=== PATIENT | female | born 1965 | race Caucasian/White ===

== ENCOUNTER 2017-06-03 18:37 | Inpatient (IN) | payer MEDICAID, SELFPAY ==
[2017-06-03 18:38] VITALS: BP 87/63; PULSE 77; RESP 22; TEMP 36.1; O2SAT 93; BMI 39.9
--- NOTE | 2017-06-03 18:58 | RAD_ITS ---
STUDY: X-RAY CHEST REASON FOR EXAM: Female, 51 years old. Overdose TECHNIQUE: Single frontal view COMPARISON: September 01, 2015 FINDINGS: The lungs are not fully expanded. There is basilar interstitial prominence/atelectasis. Normal size heart. Normal mediastinum and rianna. Normal visualized pulmonary arteries. Normal visualized aortic arch and descending thoracic aorta. Normal visualized thoracic spine. Normal visualized ribs, clavicles, and shoulders. There is no demonstrated abnormality of the visualized soft tissue structures of the upper abdomen. RAD/Chest 1 View (Portable) IMPRESSION: There is basilar interstitial prominence/atelectasis. Electronically Signed: Froylan Jimenez DO at 20:08 EST Tel [phone], Service support ,
--- NOTE | 2017-06-03 18:58 | CT_ITS ---
STUDY: CT BRAIN WITHOUT CONTRAST REASON FOR EXAM: Female, 51 years old. Altered mental status RADIATION DOSAGE (If Supplied By Facility): CTDIvol = ( 44.99 ) mGy, DLP = ( 779.24 ) mGycm TECHNIQUE: Transaxial CT imaging of the brain was performed without administration of intravenous contrast material. Individualized dose optimization techniques were used for this CT. COMPARISON: January 03, 2006. FINDINGS: Normal soft tissue structures. Normal calvarium. Normal size ventricles and extra-axial spaces for the patient's age. Normal white matter tracts of the cerebral hemispheres. Normal basal ganglia and thalami. Normal brainstem. Normal cerebellum. There is no intracranial hemorrhage. There are no findings of an acute ischemic infarction. Normal visualized paranasal sinuses. CT/Brain/Head without Contrast IMPRESSION: Normal unenhanced CT scan of the brain. Electronically Signed: Froylan Jimenez DO at 20:13 EST Tel [phone], Service support ,
--- NOTE | 2017-06-03 18:59 | EKG12_ITS ---
Test Reason : Blood Pressure : / mmHG Vent. Rate : 076 BPM Atrial Rate : 076 BPM P-R Int : 194 ms QRS Dur : 084 ms QT Int : 414 ms P-R-T Axes : 040 016 042 degrees QTc Int : 465 ms Normal sinus rhythm Normal ECG Confirmed by SHANIA KRAUS MD ([id number]), loan expeditor JOHANA LOYA ([id number]) on 06/09/2017 2:53:11 PM Referred By: CHAVA Confirmed By:SHANIA KRAUS MD
[2017-06-03 19:01] LABS: Bedside Glucose > 500 mg/dL (70-110)
[2017-06-03] MEDS: 0.9% Normal Saline 1,000 ML 1000 ML IV ×2 (19:09)
[2017-06-03 19:15] LABS: Absolute Neutrophil Count 8.1 X10^3/uL (2.0-7.7); Eosinophil# 0.01 X10^3/uL; Eosinophils% 0.1 % (0-5); Hematocrit 35.9 % (37-47); Hemoglobin 12.4 g/dl (12.0-15.0); Lymphocyte % 8.9 % (19-41); Mean Corp Hgb Conc 34.5 g/gl (32-36); Mean Corpuscular Volume 92.5 fL (81-99); Mean Platelet Vol. 9.8 fl (6.2-12.0); Monocyte# 0.05 X10^3/uL; Monocyte% 0.6 % (0-10); Neutrophil # 8.08 X10^3/uL (2.7-7.7); Neutrophil % 90.2 % (47-70); Platelet Count 236 K/mm3 (150-450); RBC Distribution Width CV 12.4 % (11.6-14.6); RBC Distribution Width SD 41.8 fl (35.1-43.9); Red Blood Count 3.88 M/mm3 (4.2-5.4)
[2017-06-03 19:16] LABS: POSITIVE COUNT NO; POSITIVE DIFFERENTIAL NO; POSITIVE MORPHOLOGY NO
[2017-06-03 19:21] LABS: International Normalized Ratio 1.2
[2017-06-03 19:22] LABS: Partial Thromboplast Time 61.2 Seconds (24.1-36.2)
[2017-06-03 19:40] VITALS: BP 106/75; PULSE 87; RESP 17; O2SAT 96
[2017-06-03 19:46] LABS: Base Excess -9 mmol/L (-2 to +2); Bicarbonate 17.2 mmol/L (22-26); Blood Gas Specimen Type ART; O2 Delivery Device Nasal Can; PO2 91 mmHG (75-100); SITE R Radial; SO2 96 % (95-99); Time Given 1945; Total Carbon Dioxide 18 mmol/L; pCO2 35.7 mmHg (35-45); pH 7.29 (7.35-7.45)
[2017-06-03 19:49] LABS: Mucous, Urine 0 SEEN /hpf (<or=2+); Red Blood Cells-Urine 0 SEEN /hpf (0-5); Squamous Epithelial Cells - UA 0 SEEN /hpf (5-10)
[2017-06-03 19:51] LABS: ALB/GLOB Ratio 0.7 RATIO (0.9-2.4); AST(SGOT) 12 U/L (15-37); Alanine Aminotransfer ALT/SGPT 23 U/L (12-78); Albumin, Serum 3.5 g/dL (3.4-5.0); Alkaline Phosphatase 267 U/L (45-117); Anion Gap 14 (5-15); BUN 81 mg/dL (7-18); BUN/Creat Ratio 18.4 RATIO (10-20); Calcium,Total 8.4 mg/dL (8.5-10.1); Chloride 91 mmol/L (98-107); Creatinine, Serum 4.41 mg/dL (0.55-1.02); EST Glomerular Filtration Rate 11 mL/min (>60); Est Glom Filt Rate - Afr Amer 13 mL/min (>60); Estimated Creatinine Clearance 11.67 ml/min; Globulin 5.1 g/dL (2.2-4.2); Glucose 636 mg/dL (70-110); Lipase 204 U/L (73-393); Potassium 5.4 mmol/L (3.5-5.1); Protein, Total 8.6 g/dL (6.4-8.2); Sodium Level 124 mmol/L (136-145)
[2017-06-03 19:55] LABS: Internal QC Validated? YES +Cl - CLEAR BKGD; Pregnancy, Urine Negative Negative
--- NOTE | 2017-06-03 19:56 | ED.RN ---
lab called with critical lab results. glucose 636. Dr. Lloyd made aware no new orders at this time
[2017-06-03 19:59] LABS: Color, Urine Yellow (Yellow); Glucose, Dipstick 1000 mg/dl (Normal); Ketone-Dipstick Negative (Negative); Leukocyte Esterase-Dipstick 500 /ul (Negative); Nitrite-Dipstick Negative (Negative); Occult Blood-Urine 150 /ul (Negative); Protein-Dipstick 30 mg/dl (Negative); Urine Bilirubin Dipstick Negative (Negative); Urine Clarity Turbid (Clear); Urine Urobilinogen Normal (Normal)
[2017-06-03 20:03] VITALS: BP 103/84; PULSE 84; RESP 26; O2SAT 100
[2017-06-03 20:05] LABS: Bacteria 3+ /hpf (None Seen); White Blood Cells >100 SEEN /hpf (0-5)
[2017-06-03 20:36] LABS: Amphetamine Urine VISTA NEGATIVE (<1000 ng/mL); Barbiturate Urine VISTA NEGATIVE (< 200 ng/mL); Benzodiazepine Urine VISTA POSITIVE (< 200 ng/mL); Cocaine Urine VISTA NEGATIVE (< 300 ng/mL); Ecstacy Urine VISTA NEGATIVE (< 500 ng/mL); Methadone Urine VISTA NEGATIVE (< 300 ng/mL); PCP Urine VISTA NEGATIVE (< 25 ng/mL); THC Urine VISTA NEGATIVE (< 50 ng/mL); Vista UDS pH Range 5
--- NOTE | 2017-06-03 21:09 | PCM.HP.STD ---
Problem List (1) Abdominal pain Status: Chronic (2) Hypokalemia Status: Chronic (3) Hypomagnesemia Status: Chronic (4) Diabetes Status: Chronic (5) Anxiety Status: Acute History of Present Illness Date of Admission: 06/03/17 The patient is a 51 year old F with past medical history of diabetes type 2, essential hypertension , anxiety and dyslipidemia who seen in the emergency room on account of acute mental status changes , she apparently ingested several tablets of her prescription Xanax in addition to an unknown substances suspected to be moonshine in an apparent suicide attempt. On arrival to the emergency room she stated she wanted to , she says she took the pills on propose to kill herself. In the Emergency room her brain CT was none acute, her glucose was 636, sodium was 124, potassium 5.4, bicarb 19 , osmolarity 333. Her urinalysis is evident for pyuria, urine tox screen is positive for benzodiazepines. When I saw her in the emergency room she was somnolent but alert and oriented to time place the patient, orientation questions appropriately and denied any suicidal ideation. Past Medical History Past Medical History (Chronic Problems): Chronic Problems Abdominal pain (Chronic) Hypokalemia (Chronic) Hypomagnesemia (Chronic) Diabetes (Chronic) Allergies latex Allergy (Verified 06/03/17 18:57) Unknown Penicillins Allergy (Verified 09/10/15 18:42) Laryngospasms Home Medications: Ambulatory Orders Medication Instructions Recorded ALPRAZolam [Xanax] 1 mg PO TID 09/10/15 Aspirin [Aspirin, Baby] 81 mg PO DAILY@0800 09/10/15 Atorvastatin Calcium [Lipitor] 40 mg PO QHS 09/10/15 Cholecalciferol (Vitamin D3) 50,000 unit PO WE 09/10/15 [Decara] Folic Acid 1 mg PO DAILY@0800 09/10/15 Insulin Aspart [Novolog Flexpen] 20 units SC TIDCM 09/10/15 Insulin Glargine,Hum.rec.anlog 31 unit SQ QHS 09/10/15 [Lantus] Lisinopril [Zestril] 20 mg PO DAILY 09/10/15 Oxybutynin [Ditropan] 5 mg PO TID 09/10/15 Oxycodone [Oxyir] 5 - 10 mg PO Q6H PRN PRN 09/10/15 Sertraline HCl [Zoloft] 50 mg PO DAILY 09/10/15 Tizanidine HCl 8 mg PO 4X/DAY 09/10/15 Zolpidem Tartrate [Ambien] 10 mg PO QHS 09/10/15 Famotidine [Pepcid] 20 mg PO BID #60 tablet 09/13/15 ProMETHAzine [Phenergan] 25 mg PO Q4H PRN PRN #20 tablet 09/13/15 Surgical History: - - colonoscopy, egd, explorotory lap Smoking Status: Unknown if ever smoked - *Family History Maternal History Items: Unknown Paternal History Items: Unknown Review of Systems Comment: All Systems were reviewed with pertinent positives mentioned in the HPI above. VTE Information - Inpt Only VTE Present on Admission: No VTE Mechan Device Prophylaxis: SCD's VTE Pharm Prophylaxis ordered?: Yes - Physical Exam General: Alert, Oriented x3 HEENT: Atraumatic Oral: Moist Mucosa Neck: Supple, No JVD Lungs: Clear to auscultation Cardiovascular: Regular rate, Normal S1, Normal S2 Abdomen: Bowel Sounds Present, Soft, Non Tender, Non-Distended Extremities: No clubbing, No edema Skin: No rashes, No breakdown Neurological: Cranial nerves II-XII grossly intact, Deep Tendon Reflexes 2+/4 and Symmetrical Vital Signs Temp Pulse Resp BP Pulse Ox 97 F L 84 26 H 103/84 H 100 06/03/17 18:38 06/03/17 20:03 06/03/17 20:03 06/03/17 20:03 06/03/17 20:03 Oxygen Delivery Method Room Air Weight: 99.1 kg Body Mass Index (BMI) 39.9 Laboratory Tests Past 24 Hrs 06/03/17 06/03/17 06/03/17 18:50 18:50 18:50 WBC 9.0 RBC 3.88 L Hgb 12.4 Hct 35.9 L MCV 92.5 MCH 32.0 MCHC 34.5 RDW 12.4 RDW Differential 41.8 Plt Count 236 MPV 9.8 Immature Gran % (Auto) 0.200 Neut % (Auto) 90.2 H Lymph % (Auto) 8.9 L [place] % (Auto) 0.6 Eos % (Auto) 0.1 Baso % (Auto) 0.0 Absolute Neuts (auto) 8.1 H Absolute Lymphs (auto) 0.80 L Total Counted Not Reportable PT 15.0 H INR 1.2 APTT 61.2 H Specimen Type Sample Site pH Bicarbonate Actual POC Total CO2 Base Excess O2 Saturation ABG pCO2 ABG pO2 Jamie Test O2 Delivery Device Liter Flow Blood Gas Notified Whom Blood Gas Notified Time Sodium 124 L Potassium 5.4 H Chloride 91 L Carbon Dioxide 19.0 L Anion Gap 14 BUN 81 H Creatinine 4.41 H Estim Creat Clear Calc 11.67 Est GFR (MDRD) Af Amer 13 L Est GFR (MDRD) Non-Af 11 L BUN/Creatinine Ratio 18.4 Glucose 636 H* Serum Osmolality Lactic Acid Calcium 8.4 L Total Bilirubin 0.50 AST 12 L ALT 23 Alkaline Phosphatase 267 H Troponin I < 0.02 Total Protein 8.6 H Albumin 3.5 Globulin 5.1 H Albumin/Globulin Ratio 0.7 L Lipase 204 Urine Color Urine Clarity Urine pH Ur Specific [place] Urine Protein Urine Glucose (UA) Urine Ketones Urine Occult Blood Urine Nitrite Urine Bilirubin Urine Urobilinogen Ur Leukocyte Esterase Urine RBC Urine WBC Ur Squamous Epith Cells Urine Bacteria Urine Mucus Urine Test Urine Opiates Screen Urine Methadone Screen Ur Barbiturates Screen Ur Phencyclidine Scrn Ur Amphetamines Screen U Methamphetamin-MDMA U Benzodiazepines Scrn Urine Cocaine Screen U Cannabinoids Screen Ur Drug Screen Comment Ethyl Alcohol Acetone Level 06/03/17 06/03/17 06/03/17 18:50 18:50 18:50 WBC RBC Hgb Hct MCV MCH MCHC RDW RDW Differential Plt Count MPV Immature Gran % (Auto) Neut % (Auto) Lymph % (Auto) [place] % (Auto) Eos % (Auto) Baso % (Auto) Absolute Neuts (auto) Absolute Lymphs (auto) Total Counted PT INR APTT Specimen Type Sample Site pH Bicarbonate Actual POC Total CO2 Base Excess O2 Saturation ABG pCO2 ABG pO2 Jamie Test O2 Delivery Device Liter Flow Blood Gas Notified Whom Blood Gas Notified Time Sodium Potassium Chloride Carbon Dioxide Anion Gap BUN Creatinine Estim Creat Clear Calc Est GFR (MDRD) Af Amer Est GFR (MDRD) Non-Af BUN/Creatinine Ratio Glucose Serum Osmolality Pending Lactic Acid Calcium Total Bilirubin AST ALT Alkaline Phosphatase Troponin I Total Protein Albumin Globulin Albumin/Globulin Ratio Lipase Urine Color Urine Clarity Urine pH Ur Specific [place] Urine Protein Urine Glucose (UA) Urine Ketones Urine Occult Blood Urine Nitrite Urine Bilirubin Urine Urobilinogen Ur Leukocyte Esterase Urine RBC Urine WBC Ur Squamous Epith Cells Urine Bacteria Urine Mucus Urine Test Urine Opiates Screen Urine Methadone Screen Ur Barbiturates Screen Ur Phencyclidine Scrn Ur Amphetamines Screen U Methamphetamin-MDMA U Benzodiazepines Scrn Urine Cocaine Screen U Cannabinoids Screen Ur Drug Screen Comment Ethyl Alcohol 5.0 Acetone Level NEGATIVE 06/03/17 06/03/17 06/03/17 19:10 19:40 19:40 WBC RBC Hgb Hct MCV MCH MCHC RDW RDW Differential Plt Count MPV Immature Gran % (Auto) Neut % (Auto) Lymph % (Auto) [place] % (Auto) Eos % (Auto) Baso % (Auto) Absolute Neuts (auto) Absolute Lymphs (auto) Total Counted PT INR APTT Specimen Type Sample Site pH Bicarbonate Actual POC Total CO2 Base Excess O2 Saturation ABG pCO2 ABG pO2 Jamie Test O2 Delivery Device Liter Flow Blood Gas Notified Whom Blood Gas Notified Time Sodium Potassium Chloride Carbon Dioxide Anion Gap BUN Creatinine Estim Creat Clear Calc Est GFR (MDRD) Af Amer Est GFR (MDRD) Non-Af BUN/Creatinine Ratio Glucose Serum Osmolality Lactic Acid 1.0 Calcium Total Bilirubin AST ALT Alkaline Phosphatase Troponin I Total Protein Albumin Globulin Albumin/Globulin Ratio Lipase Urine Color Yellow Urine Clarity Turbid Urine pH 5.0 Ur Specific [place] 1.020 Urine Protein 30 H Urine Glucose (UA) 1000 H Urine Ketones Negative Urine Occult Blood 150 H Urine Nitrite Negative Urine Bilirubin Negative Urine Urobilinogen Normal Ur Leukocyte Esterase 500 H Urine RBC 0 SEEN Urine WBC >100 SEEN Ur Squamous Epith Cells 0 SEEN Urine Bacteria 3+ Urine Mucus 0 SEEN Urine Test Negative Urine Opiates Screen Urine Methadone Screen Ur Barbiturates Screen Ur Phencyclidine Scrn Ur Amphetamines Screen U Methamphetamin-MDMA U Benzodiazepines Scrn Urine Cocaine Screen U Cannabinoids Screen Ur Drug Screen Comment Ethyl Alcohol Acetone Level 06/03/17 06/03/17 19:40 19:41 WBC RBC Hgb Hct MCV MCH MCHC RDW RDW Differential Plt Count MPV Immature Gran % (Auto) Neut % (Auto) Lymph % (Auto) [place] % (Auto) Eos % (Auto) Baso % (Auto) Absolute Neuts (auto) Absolute Lymphs (auto) Total Counted PT INR APTT Specimen Type ART Sample Site R Radial pH 7.29 L Bicarbonate Actual 17.2 L POC Total CO2 18 Base Excess -9 L O2 Saturation 96 ABG pCO2 35.7 ABG pO2 91 Jamie Test NA O2 Delivery Device Nasal Can Liter Flow 2.0 Blood Gas Notified Whom ED MD Blood Gas Notified Time 1944 Sodium Potassium Chloride Carbon Dioxide Anion Gap BUN Creatinine Estim Creat Clear Calc Est GFR (MDRD) Af Amer Est GFR (MDRD) Non-Af BUN/Creatinine Ratio Glucose Serum Osmolality Lactic Acid Calcium Total Bilirubin AST ALT Alkaline Phosphatase Troponin I Total Protein Albumin Globulin Albumin/Globulin Ratio Lipase Urine Color Urine Clarity Urine pH Ur Specific [place] Urine Protein Urine Glucose (UA) Urine Ketones Urine Occult Blood Urine Nitrite Urine Bilirubin Urine Urobilinogen Ur Leukocyte Esterase Urine RBC Urine WBC Ur Squamous Epith Cells Urine Bacteria Urine Mucus Urine Test Urine Opiates Screen NEGATIVE Urine Methadone Screen NEGATIVE Ur Barbiturates Screen NEGATIVE Ur Phencyclidine Scrn NEGATIVE Ur Amphetamines Screen NEGATIVE U Methamphetamin-MDMA NEGATIVE U Benzodiazepines Scrn POSITIVE H Urine Cocaine Screen NEGATIVE U Cannabinoids Screen NEGATIVE Ur Drug Screen Comment Ethyl Alcohol Acetone Level POC Glucose 06/03/17 18:57 POC Glucose > 500 H* Assessment/Plan 1. Acute toxic encephalopathy due to benzodiazepine overdose; we are going to admit her to the ICU for close monitoring, she is being hydrated with IV fluids. 2. Suicide attempt; when she is medically stable , she will be evaluated by behavioral health/psychiatry for possible inpatient psych admission. 3. DM type II with hyperglycemia; we will place her on insulin drip, we will hold off on her home insulin regimen at this time. 4. Hyponatremia; likely due to her hyperglycemia which should improve with treatment of #3. 5. Hyperkalemia the patient is receiving insulin drip which is likely to even make her hypokalemic and will monitor her electrolytes closely. 6. Acute cystitis ; we will place her on IV Rocephin. 7. DVT prophylaxis with subcutaneous heparin.
--- NOTE | 2017-06-03 21:12 | NURSING ---
icu obs [facility]
[2017-06-03 21:21] VITALS: BP 136/86; PULSE 84; RESP 18; O2SAT 100
[2017-06-03 21:25] LABS: Osmolality, Serum 333 mOsm/KG (275-295)
--- NOTE | 2017-06-03 21:48 | ED.RN ---
PT STATED THAT SHE WANTED TO , SHE TOOK THE PILLS ON PURPOSE, AND THAT SHE WOULD RIP HER IV OUT. SHE ALSO STATED THAT SHE DID NOT WANT US DOING ANYTHING TO SAVE HER.
--- NOTE | 2017-06-03 21:54 | NURSING ---
DIAGNOSIS: DRUG OD, HYPERGLYCEMIA
[2017-06-03 22:00] VITALS: BP 124/74; PULSE 78; RESP 18; O2SAT 95
--- NOTE | 2017-06-03 22:03 | NURSING ---
ICU 3
[2017-06-03 23:18] VITALS: BP 152/78; PULSE 89; RESP 18; O2SAT 100
[2017-06-03 23:26] LABS: Bedside Glucose > 500 mg/dL (70-110)
[2017-06-04] VITALS (37 sets, daily range): BP systolic 77–132; BP diastolic 42–78; PULSE 72–100; RESP 10–18; TEMP 36.1–36.6; O2SAT 84–100; BMI 34.7
--- NOTE | 2017-06-04 00:54 | ED.DCSUM_ITS ---
- ER Visit Summary Date of Service: 06/04/17 Chief Complaint: Intentional overdose History of Present Illness: The patient is a 51 F who presents for intentional overdose. called 911 after patient took multiple medications, including 3 days worth of farxiga, lisinopril, tizanidine, oxybutynin, and 10 tabs of 1 mg Xanax. also reported she drink moonshine. Patient unable to provide history, and is not present to give any further information, including time of ingestions. 3 limited secondary to patient obtunded. Physical Examination: Vital signs: afebrile, mild hypotension, no hypoxia on room air General: well nourished, well developed, obese, response to noxious stimulation Skin: warm, dry, no rash, positive mild pallor HEENT: normocephalic and atraumatic; PERRL, EOMI, dry mucous membranes Cardiovascular: regular rate and rhythm without murmurs, no peripheral edema, 2 + pulses all distal extremities Respiratory: No increased work of breathing, lungs are clear to auscultation bilaterally, no rales, rhonchi or wheezing Abdominal: Abdomen is soft, I will diffuse tenderness with normoactive bowel sounds, no guarding or rebound, no masses MSK: Moves all extremities, no deformities, normal strength Neuro: Lethargic. No facial droop, moves all extremities Test Results: Abnormal Lab Results 06/03/17 06/03/17 06/03/17 18:50 18:50 18:50 WBC 9.0 RBC 3.88 L Hgb 12.4 Hct 35.9 L MCV 92.5 MCH 32.0 MCHC 34.5 RDW 12.4 RDW Differential 41.8 Plt Count 236 MPV 9.8 Immature Gran % (Auto) 0.200 Neut % (Auto) 90.2 H Lymph % (Auto) 8.9 L [place] % (Auto) 0.6 Eos % (Auto) 0.1 Baso % (Auto) 0.0 Absolute Neuts (auto) 8.1 H Absolute Lymphs (auto) 0.80 L Total Counted Not Reportable PT 15.0 H INR 1.2 APTT 61.2 H Specimen Type Sample Site pH Bicarbonate Actual POC Total CO2 Base Excess O2 Saturation ABG pCO2 ABG pO2 Jamie Test O2 Delivery Device Liter Flow Blood Gas Notified Whom Blood Gas Notified Time Sodium 124 L Potassium 5.4 H Chloride 91 L Carbon Dioxide 19.0 L Anion Gap 14 BUN 81 H Creatinine 4.41 H Estim Creat Clear Calc 11.67 Est GFR (MDRD) Af Amer 13 L Est GFR (MDRD) Non-Af 11 L BUN/Creatinine Ratio 18.4 Glucose 636 H* Serum Osmolality Lactic Acid Calcium 8.4 L Total Bilirubin 0.50 AST 12 L ALT 23 Alkaline Phosphatase 267 H Troponin I < 0.02 Total Protein 8.6 H Albumin 3.5 Globulin 5.1 H Albumin/Globulin Ratio 0.7 L Lipase 204 Urine Color Urine Clarity Urine pH Ur Specific [place] Urine Protein Urine Glucose (UA) Urine Ketones Urine Occult Blood Urine Nitrite Urine Bilirubin Urine Urobilinogen Ur Leukocyte Esterase Urine RBC Urine WBC Ur Squamous Epith Cells Urine Bacteria Urine Mucus Urine Test Urine Opiates Screen Urine Methadone Screen Ur Barbiturates Screen Ur Phencyclidine Scrn Ur Amphetamines Screen U Methamphetamin-MDMA U Benzodiazepines Scrn Urine Cocaine Screen U Cannabinoids Screen Ur Drug Screen Comment Ethyl Alcohol Acetone Level POC Glucose 06/03/17 06/03/17 06/03/17 18:50 18:50 18:50 WBC RBC Hgb Hct MCV MCH MCHC RDW RDW Differential Plt Count MPV Immature Gran % (Auto) Neut % (Auto) Lymph % (Auto) [place] % (Auto) Eos % (Auto) Baso % (Auto) Absolute Neuts (auto) Absolute Lymphs (auto) Total Counted PT INR APTT Specimen Type Sample Site pH Bicarbonate Actual POC Total CO2 Base Excess O2 Saturation ABG pCO2 ABG pO2 Jamie Test O2 Delivery Device Liter Flow Blood Gas Notified Whom Blood Gas Notified Time Sodium Potassium Chloride Carbon Dioxide Anion Gap BUN Creatinine Estim Creat Clear Calc Est GFR (MDRD) Af Amer Est GFR (MDRD) Non-Af BUN/Creatinine Ratio Glucose Serum Osmolality 333 H Lactic Acid Calcium Total Bilirubin AST ALT Alkaline Phosphatase Troponin I Total Protein Albumin Globulin Albumin/Globulin Ratio Lipase Urine Color Urine Clarity Urine pH Ur Specific [place] Urine Protein Urine Glucose (UA) Urine Ketones Urine Occult Blood Urine Nitrite Urine Bilirubin Urine Urobilinogen Ur Leukocyte Esterase Urine RBC Urine WBC Ur Squamous Epith Cells Urine Bacteria Urine Mucus Urine Test Urine Opiates Screen Urine Methadone Screen Ur Barbiturates Screen Ur Phencyclidine Scrn Ur Amphetamines Screen U Methamphetamin-MDMA U Benzodiazepines Scrn Urine Cocaine Screen U Cannabinoids Screen Ur Drug Screen Comment Ethyl Alcohol 5.0 Acetone Level NEGATIVE POC Glucose 06/03/17 06/03/17 06/03/17 18:57 19:10 19:40 WBC RBC Hgb Hct MCV MCH MCHC RDW RDW Differential Plt Count MPV Immature Gran % (Auto) Neut % (Auto) Lymph % (Auto) [place] % (Auto) Eos % (Auto) Baso % (Auto) Absolute Neuts (auto) Absolute Lymphs (auto) Total Counted PT INR APTT Specimen Type Sample Site pH Bicarbonate Actual POC Total CO2 Base Excess O2 Saturation ABG pCO2 ABG pO2 Jamie Test O2 Delivery Device Liter Flow Blood Gas Notified Whom Blood Gas Notified Time Sodium Potassium Chloride Carbon Dioxide Anion Gap BUN Creatinine Estim Creat Clear Calc Est GFR (MDRD) Af Amer Est GFR (MDRD) Non-Af BUN/Creatinine Ratio Glucose Serum Osmolality Lactic Acid 1.0 Calcium Total Bilirubin AST ALT Alkaline Phosphatase Troponin I Total Protein Albumin Globulin Albumin/Globulin Ratio Lipase Urine Color Urine Clarity Urine pH Ur Specific [place] Urine Protein Urine Glucose (UA) Urine Ketones Urine Occult Blood Urine Nitrite Urine Bilirubin Urine Urobilinogen Ur Leukocyte Esterase Urine RBC Urine WBC Ur Squamous Epith Cells Urine Bacteria Urine Mucus Urine Test Negative Urine Opiates Screen Urine Methadone Screen Ur Barbiturates Screen Ur Phencyclidine Scrn Ur Amphetamines Screen U Methamphetamin-MDMA U Benzodiazepines Scrn Urine Cocaine Screen U Cannabinoids Screen Ur Drug Screen Comment Ethyl Alcohol Acetone Level POC Glucose > 500 H* 06/03/17 06/03/17 06/03/17 19:40 19:40 19:41 WBC RBC Hgb Hct MCV MCH MCHC RDW RDW Differential Plt Count MPV Immature Gran % (Auto) Neut % (Auto) Lymph % (Auto) [place] % (Auto) Eos % (Auto) Baso % (Auto) Absolute Neuts (auto) Absolute Lymphs (auto) Total Counted PT INR APTT Specimen Type ART Sample Site R Radial pH 7.29 L Bicarbonate Actual 17.2 L POC Total CO2 18 Base Excess -9 L O2 Saturation 96 ABG pCO2 35.7 ABG pO2 91 Jamie Test NA O2 Delivery Device Nasal Can Liter Flow 2.0 Blood Gas Notified Whom ED Blood Gas Notified Time 1944 Sodium Potassium Chloride Carbon Dioxide Anion Gap BUN Creatinine Estim Creat Clear Calc Est GFR (MDRD) Af Amer Est GFR (MDRD) Non-Af BUN/Creatinine Ratio Glucose Serum Osmolality Lactic Acid Calcium Total Bilirubin AST ALT Alkaline Phosphatase Troponin I Total Protein Albumin Globulin Albumin/Globulin Ratio Lipase Urine Color Yellow Urine Clarity Turbid Urine pH 5.0 Ur Specific [place] 1.020 Urine Protein 30 H Urine Glucose (UA) 1000 H Urine Ketones Negative Urine Occult Blood 150 H Urine Nitrite Negative Urine Bilirubin Negative Urine Urobilinogen Normal Ur Leukocyte Esterase 500 H Urine RBC 0 SEEN Urine WBC >100 SEEN Ur Squamous Epith Cells 0 SEEN Urine Bacteria 3+ Urine Mucus 0 SEEN Urine Test Urine Opiates Screen NEGATIVE Urine Methadone Screen NEGATIVE Ur Barbiturates Screen NEGATIVE Ur Phencyclidine Scrn NEGATIVE Ur Amphetamines Screen NEGATIVE U Methamphetamin-MDMA NEGATIVE U Benzodiazepines Scrn POSITIVE H Urine Cocaine Screen NEGATIVE U Cannabinoids Screen NEGATIVE Ur Drug Screen Comment Ethyl Alcohol Acetone Level POC Glucose 06/03/17 06/03/17 22:35 23:22 WBC RBC Hgb Hct MCV MCH MCHC RDW RDW Differential Plt Count MPV Immature Gran % (Auto) Neut % (Auto) Lymph % (Auto) [place] % (Auto) Eos % (Auto) Baso % (Auto) Absolute Neuts (auto) Absolute Lymphs (auto) Total Counted PT INR APTT Specimen Type Sample Site pH Bicarbonate Actual POC Total CO2 Base Excess O2 Saturation ABG pCO2 ABG pO2 Jamie Test O2 Delivery Device Liter Flow Blood Gas Notified Whom Blood Gas Notified Time Sodium Potassium Chloride Carbon Dioxide Anion Gap BUN Creatinine Estim Creat Clear Calc Est GFR (MDRD) Af Amer Est GFR (MDRD) Non-Af BUN/Creatinine Ratio Glucose Serum Osmolality Lactic Acid Calcium Total Bilirubin AST ALT Alkaline Phosphatase Troponin I < 0.02 Total Protein Albumin Globulin Albumin/Globulin Ratio Lipase Urine Color Urine Clarity Urine pH Ur Specific [place] Urine Protein Urine Glucose (UA) Urine Ketones Urine Occult Blood Urine Nitrite Urine Bilirubin Urine Urobilinogen Ur Leukocyte Esterase Urine RBC Urine WBC Ur Squamous Epith Cells Urine Bacteria Urine Mucus Urine Test Urine Opiates Screen Urine Methadone Screen Ur Barbiturates Screen Ur Phencyclidine Scrn Ur Amphetamines Screen U Methamphetamin-MDMA U Benzodiazepines Scrn Urine Cocaine Screen U Cannabinoids Screen Ur Drug Screen Comment Ethyl Alcohol Acetone Level POC Glucose > 500 H* Emergency Department Course and Treatment: Blood sugar was checked and was read as high. She was given IV fluids. CBC showed no leukocytosis or anemia. Chemistry panel showed a sodium that was appropriately low for corrected blood sugar. Potassium 5.4. No anion gap. BUN and creatinine elevated. Urine was positive for infection. Troponin negative. Lactate normal. negative. Ketones negative. Alcohol was negative. ABG showed mild metabolic acidosis at 7.29. Tox positive for benzos. History included that patient had been drinking alcohol, but the alcohol level was negative. Patient had no anion gap that would suggest toxic alcohol ingestion such as ethylene glycol or methanol. Patient became much more responsive after initial fluid hydration and once IVs in [place] were placed. Patient maintained her airway at all times and required no intubation or advanced airway maneuvers. She was started on IV insulin drip after blood sugar did not respond to IV fluids. Acetaminophen and salicylate levels are pending. Patient will require admission for further management of intentional overdose, hyperglycemia and acute renal failure. Critical care time 40 minutes, which includes coordination of care, emergent management of life-threatening conditions, consultations, treatment of hypoglycemia, overdose, acute renal insufficiency, altered mental status. Treatment Plan: [] Disposition: [] Impression: intentional OD; hyperglycemia; ARF, UTI This note was generated with [employer] dictation software. It may contain incorrect words, spelling, and punctuation that were not noted in review of the chart prior to signing ED Disposition - Plan for ED Patient: Disposition: Acute Care Hospital [facility] Chief Complaint: Overdose
[2017-06-04 01:21] LABS: Bedside Glucose 457 mg/dL (70-110)
[2017-06-04] MEDS: Ceftriaxone 1 GM/50 ML BAG IV (01:35)
[2017-06-04] MEDS: 0.9% Normal Saline 1,000 ML 125 ML IV ×2 (01:35→11:04)
[2017-06-04] MEDS: Heparin Injection 5,000 UNITS/ML Syringe 5000 UNITS SC ×3 (01:43→21:52)
[2017-06-04 02:06] LABS: Bedside Glucose 427 mg/dL (70-110)
--- NOTE | 2017-06-04 02:15 | NURSING ---
iv attempted x3, unable to obtain iv's or blood, lab called for blood draw. will send someone at 0300.
[2017-06-04 02:59] LABS: M R Staph aureus DNA By PCR Negative (Negative); Probe Check PASS; Specimen Processing Control PASS
[2017-06-04 03:36] LABS: Bedside Glucose 369 mg/dL (70-110)
[2017-06-04] MEDS: 0.9% Normal Saline 1,000 ML 999 ML IV (04:00)
[2017-06-04 04:29] LABS: Hematocrit 31.2 % (37-47); Hemoglobin 11.2 g/dl (12.0-15.0); Mean Corp Hgb Conc 35.9 g/gl (32-36); Mean Corpuscular Hgb 32.6 pg (27.0-32.0); Mean Corpuscular Volume 90.7 fL (81-99); Mean Platelet Vol. 9.7 fl (6.2-12.0); Platelet Count 245 K/mm3 (150-450); RBC Distribution Width CV 11.9 % (11.6-14.6); RBC Distribution Width SD 37.7 fl (35.1-43.9); Red Blood Count 3.44 M/mm3 (4.2-5.4); White Blood Count 9.7 K/mm3 (4.4-11.0)
[2017-06-04 04:30] LABS: Scan Indicated on CBC? Y/N NO
[2017-06-04 04:41] LABS: Bedside Glucose 297 mg/dL (70-110)
[2017-06-04 04:43] LABS: Acetaminophen (Tylenol) Level < 2.0 ug/mL (10.0-30.0); Salicylate 2.8 mg/dL (2.8-20.0)
[2017-06-04 04:49] LABS: Anion Gap 16 (5-15); BUN 74 mg/dL (7-18); BUN/Creat Ratio 25.2 RATIO (10-20); Calcium,Total 8.1 mg/dL (8.5-10.1); Chloride 103 mmol/L (98-107); Creatinine, Serum 2.94 mg/dL (0.55-1.02); EST Glomerular Filtration Rate 18 mL/min (>60); Est Glom Filt Rate - Afr Amer 21 mL/min (>60); Glucose 353 mg/dL (70-110); Potassium 3.8 mmol/L (3.5-5.1); Sodium Level 134 mmol/L (136-145)
[2017-06-04 05:41] LABS: Bedside Glucose 206 mg/dL (70-110)
[2017-06-04 06:31] LABS: Bedside Glucose 191 mg/dL (70-110)
[2017-06-04 08:16] LABS: Bedside Glucose 175 mg/dL (70-110)
--- NOTE | 2017-06-04 08:42 | PCM.PN.HOSP ---
Patient Problems: Active and Suspected Problems Toxic encephalopathy (Acute) Suicide attempt (Acute) Hyperosmolar non-ketotic state in patient with type 2 diabetes mellitus (Acute) ZOEY (acute kidney injury) (Acute) Subjective: Nursing, patient has been slightly more alert but still confused. Also stated that she truly did want to kill herself. Vitals/I&O's: Vital Signs Temp Pulse Resp BP Pulse Ox 36.1 C L 83 12 80/42 L 98 06/04/17 07:00 06/04/17 07:00 06/04/17 07:00 06/04/17 07:00 06/04/17 07:00 Oxygen Delivery Method Room Air Weight: 88.3 kg Body Mass Index (BMI) 34.7 Finger Stick Blood Glucose 206 Intake and Output for Last 24 Hours 06/02/17 06/03/17 06/04/17 23:59 23:59 23:59 Intake Total 1393.5 / 1393.5 Output Total 1750 / 1750 Balance -356.5 / -356.5 General: Confused, - - Lethargic. Barely able to keep her eyes open. HEENT: Atraumatic, PERRLA, Normocephalic Oral: Moist Mucosa, No Gingival or Mucosal Lesions/ Ulcerations Neck: No Nodes, Thyroid Normal Size and Texture Lungs: No rhonchi, No wheeze, Diminished Cardiovascular: Regular rate, Regular Rhythm, Normal S1, Normal S2, No murmurs Abdomen: Bowel Sounds Present, Soft, Non Tender, Non-Distended, No Hepato-splenomegaly Extremities: No edema, No Calf Tenderness Skin: No rashes, No breakdown Musculoskeletal: No Tenderness to Palpation of Joints or Extremities, No Muscle Wasting Neurological: Deep Tendon Reflexes 2+/4 and Symmetrical, - - No clonus Laboratory Results 06/03/17 22:35: Troponin I < 0.02 06/03/17 23:22: POC Glucose > 500 H* 06/04/17 01:15: POC Glucose 457 H* 06/04/17 01:20: MRSA (PCR) Negative 06/04/17 01:59: POC Glucose 427 H 06/04/17 03:28: POC Glucose 369 H 06/04/17 03:54: Sodium 134 L, Potassium 3.8, Chloride 103, Carbon Dioxide 15.0 L, Anion Gap 16 H, BUN 74 H, Creatinine 2.94 H, Estim Creat Clear Calc 17.50, Est GFR (MDRD) Af Amer 21 L, Est GFR (MDRD) Non-Af 18 L, BUN/Creatinine Ratio 25.2 H, Glucose 353 H, Calcium 8.1 L, Troponin I < 0.02 06/04/17 03:54: WBC 9.7, RBC 3.44 L, Hgb 11.2 L, Hct 31.2 L, MCV 90.7, MCH 32.6 H, MCHC 35.9, RDW 11.9, RDW Differential 37.7, Plt Count 245, MPV 9.7 06/04/17 03:54: Salicylates 2.8, Acetaminophen < 2.0 L 06/04/17 04:34: POC Glucose 297 H 06/04/17 05:30: POC Glucose 206 H 06/04/17 06:28: POC Glucose 191 H 06/04/17 07:55: POC Glucose 175 H Current Medications Dextrose (D50w Syringe) 0 gm IV X1 PRN; Protocol PRN Reason: Hypoglycemia Heparin Sodium (Porcine) () 5,000 units SC BID [facility] Last Admin: 06/04/17 01:43 Dose: 5,000 units Insulin Aspart 100 unit/ (Sodium Chloride) 100 mls @ 9.91 mls/hr CONT INF .Q10H6M [facility]; 0.1 UNITS/KG/HR PRN Reason: Protocol Last Admin: 06/04/17 02:14 Dose: 9.91 mls/hr Ceftriaxone Sodium (Rocephin) 1 gm in 50 mls @ 100 mls/hr IV Q24 [facility] Last Admin: 06/04/17 01:35 Dose: 100 mls/hr Sodium Chloride () 1,000 mls @ 125 mls/hr IV .Q8H [facility] Last Admin: 06/04/17 01:35 Dose: 125 mls/hr Magnesium Hydroxide (Milk Of Magnesia) 30 ml PO DAILY PRN PRN PRN Reason: Constipation Sodium Chloride () 5 - 30 ml IV UD PRN PRN Reason: SALINE FLUSH Assessment/Plan Active and Suspected Problems Toxic encephalopathy (Acute) Suicide attempt (Acute) Hyperosmolar non-ketotic state in patient with type 2 diabetes mellitus (Acute) ZOEY (acute kidney injury) (Acute) 1. Toxic encephalopathy Due to an intentional overdose patient's Xanax. Improved somewhat Continue supportive management at this time. 2. Suicide attempt Patient will need to go to a psychiatric hospital for management when she has been medically medically stabilized. 3. Hyperosmolar non-ketosis On insulin drip. Blood sugars have improved significantly. Would transition back to her basal and prandial insulins now that her blood sugars are greatly improved. 4. Chronic benzodiazepine use. Reviewed her OARRS, and patient has been getting her Xanax from a provider. Last prescription was filled on the . Therefore, would not abruptly discontinue Ativan once patient has become more alert but to wean that off over several weeks. But given the patient's obtundation at this point time, would certainly hold the benzos. But would reintroduce if patient starts going through withdrawal which she is certainly not going to her at this time. 5. Acute kidney injury Suspect prerenal. Continue with IV fluids Baseline creatinine is prior around 1 which was performed in August 2015. Possible that her kidney function may have gotten worse in the interim, however. 6. DVT prophylaxis with subcu heparin Code Visit Inpatient E&M: 52433 Subs Hosp L3
--- NOTE | 2017-06-04 08:48 | PN_ITS ---
Patient Problems: Active and Suspected Problems Toxic encephalopathy (Acute) Suicide attempt (Acute) Hyperosmolar non-ketotic state in patient with type 2 diabetes mellitus (Acute) ZOEY (acute kidney injury) (Acute) Subjective: Nursing, patient has been slightly more alert but still confused. Also stated that she truly did want to kill herself. Vitals/I&O's: Vital Signs Temp Pulse Resp BP Pulse Ox 36.1 C L 83 12 80/42 L 98 06/04/17 07:00 06/04/17 07:00 06/04/17 07:00 06/04/17 07:00 06/04/17 07:00 Oxygen Delivery Method Room Air Weight: 88.3 kg Body Mass Index (BMI) 34.7 Finger Stick Blood Glucose 206 Intake and Output for Last 24 Hours 06/02/17 06/03/17 06/04/17 23:59 23:59 23:59 Intake Total 1393.5 / 1393.5 Output Total 1750 / 1750 Balance -356.5 / -356.5 General: Confused, - - Lethargic. Barely able to keep her eyes open. HEENT: Atraumatic, PERRLA, Normocephalic Oral: Moist Mucosa, No Gingival or Mucosal Lesions/ Ulcerations Neck: No Nodes, Thyroid Normal Size and Texture Lungs: No rhonchi, No wheeze, Diminished Cardiovascular: Regular rate, Regular Rhythm, Normal S1, Normal S2, No murmurs Abdomen: Bowel Sounds Present, Soft, Non Tender, Non-Distended, No Hepato- splenomegaly Extremities: No edema, No Calf Tenderness Skin: No rashes, No breakdown Musculoskeletal: No Tenderness to Palpation of Joints or Extremities, No Muscle Wasting Neurological: Deep Tendon Reflexes 2+/4 and Symmetrical, - - No clonus Laboratory Results 06/03/17 22:35: Troponin I < 0.02 06/03/17 23:22: POC Glucose > 500 H* 06/04/17 01:15: POC Glucose 457 H* 06/04/17 01:20: MRSA (PCR) Negative 06/04/17 01:59: POC Glucose 427 H 06/04/17 03:28: POC Glucose 369 H 06/04/17 03:54: Sodium 134 L, Potassium 3.8, Chloride 103, Carbon Dioxide 15.0 L , Anion Gap 16 H, BUN 74 H, Creatinine 2.94 H, Estim Creat Clear Calc 17.50, Est GFR (MDRD) Af Amer 21 L, Est GFR (MDRD) Non-Af 18 L, BUN/Creatinine Ratio 25.2 H, Glucose 353 H, Calcium 8.1 L, Troponin I < 0.02 06/04/17 03:54: WBC 9.7, RBC 3.44 L, Hgb 11.2 L, Hct 31.2 L, MCV 90.7, MCH 32.6 H, MCHC 35.9, RDW 11.9, RDW Differential 37.7, Plt Count 245, MPV 9.7 06/04/17 03:54: Salicylates 2.8, Acetaminophen < 2.0 L 06/04/17 04:34: POC Glucose 297 H 06/04/17 05:30: POC Glucose 206 H 06/04/17 06:28: POC Glucose 191 H 06/04/17 07:55: POC Glucose 175 H Current Medications Dextrose (D50w Syringe) 0 gm IV X1 PRN; Protocol PRN Reason: Hypoglycemia Heparin Sodium (Porcine) () 5,000 units SC BID [facility] Last Admin: 06/04/17 01:43 Dose: 5,000 units Insulin Aspart 100 unit/ (Sodium Chloride) 100 mls @ 9.91 mls/hr CONT INF .Q10H6M [facility]; 0.1 UNITS/KG/HR PRN Reason: Protocol Last Admin: 06/04/17 02:14 Dose: 9.91 mls/hr Ceftriaxone Sodium (Rocephin) 1 gm in 50 mls @ 100 mls/hr IV Q24 [facility] Last Admin: 06/04/17 01:35 Dose: 100 mls/hr Sodium Chloride () 1,000 mls @ 125 mls/hr IV .Q8H [facility] Last Admin: 06/04/17 01:35 Dose: 125 mls/hr Magnesium Hydroxide (Milk Of Magnesia) 30 ml PO DAILY PRN PRN PRN Reason: Constipation Sodium Chloride () 5 - 30 ml IV UD PRN PRN Reason: SALINE FLUSH Assessment/Plan Active and Suspected Problems Toxic encephalopathy (Acute) Suicide attempt (Acute) Hyperosmolar non-ketotic state in patient with type 2 diabetes mellitus (Acute) ZOEY (acute kidney injury) (Acute) 1. Toxic encephalopathy Due to an intentional overdose patient's Xanax. Improved somewhat Continue supportive management at this time. 2. Suicide attempt Patient will need to go to a psychiatric hospital for management when she has been medically medically stabilized. 3. Hyperosmolar non-ketosis On insulin drip. Blood sugars have improved significantly. Would transition back to her basal and prandial insulins now that her blood sugars are greatly improved. 4. Chronic benzodiazepine use. Reviewed her OARRS, and patient has been getting her Xanax from a provider. Last prescription was filled on the . Therefore, would not abruptly discontinue Ativan once patient has become more alert but to wean that off over several weeks. But given the patient's obtundation at this point time, would certainly hold the benzos. But would reintroduce if patient starts going through withdrawal which she is certainly not going to her at this time. 5. Acute kidney injury Suspect prerenal. Continue with IV fluids Baseline creatinine is prior around 1 which was performed in August 2015. Possible that her kidney function may have gotten worse in the interim, however. 6. DVT prophylaxis with subcu heparin Code Visit Inpatient E&M: 71720 Subs Hosp L3
[2017-06-04] MEDS: Lactated Ringers 1,000 ML 999 ML IV ×2 (09:09→13:34)
[2017-06-04 10:00] LABS: Bedside Glucose 143 mg/dL (70-110)
[2017-06-04 10:00] LABS: Bedside Glucose 151 mg/dL (70-110)
--- NOTE | 2017-06-04 10:35 | CASEMGMT ---
SW participated in interdisciplinary rounds. Pt will need to speak w/crisis when medically stable. SW let RN know if family comes in to please let SW know and SW will speak w/family. KARIN Aguero, [employer]
[2017-06-04 10:55] LABS: Anion Gap 9 (5-15); BUN 68 mg/dL (7-18); BUN/Creat Ratio 30.5 RATIO (10-20); Chloride 111 mmol/L (98-107); Creatinine, Serum 2.23 mg/dL (0.55-1.02); EST Glomerular Filtration Rate 24 mL/min (>60); Est Glom Filt Rate - Afr Amer 30 mL/min (>60); Estimated Creatinine Clearance 23.07 ml/min; Glucose 126 mg/dL (70-110); Potassium 3.7 mmol/L (3.5-5.1); Sodium Level 141 mmol/L (136-145)
--- NOTE | 2017-06-04 11:30 | PCM.CON.CC ---
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; 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 Patient's /boyfriend reportedly called 911 after the patient had taken approximately 3 days worth of Farxiga, lisinopril, oxybutynin, tizanidine and 10 mg of Xanax. Patient reportedly had also drank moonshine, but on presentation alcohol level was 0. On ER evaluation, patient was noted to be in acute renal failure. Patient was admitted to the intensive care unit under suicide precautions. On evaluation today, patient is not very forthcoming with details. Patient does readily admit that she was trying to hurt her self, but is not going into great detail. Patient is very somnolent. Patient's insulin drip has been weaned throughout the day and is currently being transitioned over to sliding scale insulin. Patient also has been hypotensive and has received a liter of lactated Ringer's with good response. Given decreased mental status, an ABG was obtained.. Blood sugars will continue to be drawn Past Medical History Past Medical History (Chronic Problems): Chronic Problems Abdominal pain (Chronic) Hypokalemia (Chronic) Hypomagnesemia (Chronic) Diabetes (Chronic) Anxiety (Chronic) Allergies latex Allergy (Verified 06/03/17 18:57) Unknown Penicillins Allergy (Verified 09/10/15 18:42) Laryngospasms Home Medications: Ambulatory Orders Medication Instructions Recorded ALPRAZolam [Xanax] 1 mg PO TID 09/10/15 Aspirin [Aspirin, Baby] 81 mg PO DAILY@0800 09/10/15 Atorvastatin Calcium [Lipitor] 40 mg PO QHS 09/10/15 Cholecalciferol (Vitamin D3) 50,000 unit PO WE 09/10/15 [Decara] Folic Acid 1 mg PO DAILY@0800 09/10/15 Insulin Aspart [Novolog Flexpen] 20 units SC TIDCM 09/10/15 Insulin Glargine,Hum.rec.anlog 31 unit SQ QHS 09/10/15 [Lantus] Lisinopril [Zestril] 20 mg PO DAILY 09/10/15 Oxybutynin [Ditropan] 5 mg PO TID 09/10/15 Oxycodone [Oxyir] 5 - 10 mg PO Q6H PRN PRN 09/10/15 Sertraline HCl [Zoloft] 50 mg PO DAILY 09/10/15 Tizanidine HCl 8 mg PO 4X/DAY 09/10/15 Zolpidem Tartrate [Ambien] 10 mg PO QHS 09/10/15 Famotidine [Pepcid] 20 mg PO BID #60 tablet 09/13/15 ProMETHAzine [Phenergan] 25 mg PO Q4H PRN PRN #20 tablet 09/13/15 Surgical History: - - colonoscopy, egd, explorotory lap Smoking Status: Never smoker - *Family History Maternal History Items: Unknown Paternal History Items: Unknown Review of Systems Unable to obtain accurate/complete ROS d/t: Decreased mental status Patient Problems: Active and Suspected Problems ZOEY (acute kidney injury) (Acute) Toxic encephalopathy (Acute) Suicide attempt (Acute) Hyperosmolar non-ketotic state in patient with type 2 diabetes mellitus (Acute) Objective: Chest x-ray was personally reviewed and shows no acute infiltrate. - Physical Exam General: Lethargic, Non-Cooperative, - - Obese. RASS -3 HEENT: Atraumatic, PERRLA, EOMI, Normocephalic, - - No scleral icterus or injection noted. Oral: No Gingival or Mucosal Lesions/ Ulcerations, Dry Mucosa Neck: Supple, No JVD, No Nodes, Trachea Midline Lungs: No rhonchi, No wheeze, No rales, Diminished, - - Poor effort. No dullness to percussion. Cardiovascular: Regular rate, Regular Rhythm, Normal S1, Normal S2, No murmurs, No rub noted, No Gallop Abdomen: Bowel Sounds Present, Soft, Non Tender, Non-Distended, Obese Extremities: No clubbing, No cyanosis, No edema, Capillary Refill Less than 3 Seconds Skin: No rashes Musculoskeletal: No Tenderness to Palpation of Joints or Extremities, No Muscle Wasting Lymphatic: No Cervical, Supraclavicular, or Inguinal Adenopathy Neurological: Neuro grossly intact, Motor Exam 5/5 strength throughout, Sensory exam intact to light touch and pain, - - Not very cooperative with examination. Localizes to stimulus. Psych/Mental Status: Flat Affect Vital Signs Temp Pulse Resp BP Pulse Ox 36.1 C L 83 12 80/42 L 98 06/04/17 07:00 06/04/17 07:00 06/04/17 07:00 06/04/17 07:00 06/04/17 07:00 Oxygen Delivery Method Room Air Weight: 88.3 kg Body Mass Index (BMI) 34.7 Finger Stick Blood Glucose 206 Intake and Output for Last 24 Hours 06/02/17 06/03/17 06/04/17 23:59 23:59 23:59 Intake Total 1393.5 / 1393.5 Output Total 1750 / 1750 Balance -356.5 / -356.5 Laboratory Tests Past 24 Hrs 06/03/17 06/04/17 06/04/17 22:35 01:20 03:54 WBC RBC Hgb Hct MCV MCH MCHC RDW RDW Differential Plt Count MPV Sodium 134 L Potassium 3.8 Chloride 103 Carbon Dioxide 15.0 L Anion Gap 16 H BUN 74 H Creatinine 2.94 H Estim Creat Clear Calc 17.50 Est GFR (MDRD) Af Amer 21 L Est GFR (MDRD) Non-Af 18 L BUN/Creatinine Ratio 25.2 H Glucose 353 H Calcium 8.1 L Troponin I < 0.02 < 0.02 Salicylates Acetaminophen MRSA (PCR) Negative 06/04/17 06/04/17 06/04/17 03:54 03:54 10:24 WBC 9.7 RBC 3.44 L Hgb 11.2 L Hct 31.2 L MCV 90.7 MCH 32.6 H MCHC 35.9 RDW 11.9 RDW Differential 37.7 Plt Count 245 MPV 9.7 Sodium 141 Potassium 3.7 Chloride 111 H Carbon Dioxide 21.0 Anion Gap 9 BUN 68 H Creatinine 2.23 H Estim Creat Clear Calc 23.07 Est GFR (MDRD) Af Amer 30 L Est GFR (MDRD) Non-Af 24 L BUN/Creatinine Ratio 30.5 H Glucose 126 H Calcium 8.0 L Troponin I < 0.02 Salicylates 2.8 Acetaminophen < 2.0 L MRSA (PCR) POC Glucose 06/04/17 06/04/17 06/04/17 09:54 09:09 07:55 POC Glucose 143 H 151 H 175 H 06/04/17 06/04/17 06/04/17 06:28 05:30 04:34 POC Glucose 191 H 206 H 297 H 06/04/17 06/04/17 06/04/17 03:28 01:59 01:15 POC Glucose 369 H 427 H 457 H* 06/03/17 23:22 POC Glucose > 500 H* Clinical Impression(s) from Imaging Studies Brain CT 06/03/17 18:58 IMPRESSION: Normal unenhanced CT scan of the brain. Electronically Signed: Froylan Jimenez DO at 20:13 EST Tel [phone], Service support , Chest X-Ray 06/03/17 18:58 IMPRESSION: There is basilar interstitial prominence/atelectasis. Electronically Signed: Froylan Jimenez DO at 20:08 EST Tel [phone], Service support , Assessment/Plan Active and Suspected Problems ZOEY (acute kidney injury) (Acute) Toxic encephalopathy (Acute) Suicide attempt (Acute) Hyperosmolar non-ketotic state in patient with type 2 diabetes mellitus (Acute) RECOMMENDATIONS: 1. Continue to monitor respiratory status 2. Fluid boluses as necessary for hypotension 3. Discontinue insulin drip, sliding scale only 4. Continue frequent blood sugar checks 5. Suicide precautions, not medically stable for crisis evaluation at this time IMPRESSIONS: 1. Toxic encephalopathy secondary to suicide attempt with overdose Patient's mental status is marginal and fluctuating at this time. Patient has not an ABG that shows decreased compensation for metabolic acidosis, but overall tolerating well. Patient's blood sugars are well-controlled at this time. Will need to follow them given that Farxiga is renally excreted. Do anticipate prolonged recovery from overdose secondary to acute kidney injury. Cannot exclude the need for BiPAP rescue. Patient is not cleared for crisis evaluation at this time 2. Hyperosmolar non-ketosis She was placed on insulin drip overnight. Will discontinue insulin drip at this time. However, will need to continue to follow blood sugars closely as Farxiga is renally excreted. There have been case reports of non-anion gap DKA associated with its use. We will continue to monitor intermittent BMPs. If acidosis is worsening, may need to treat as a DKA with D5 half-normal saline and insulin drip. 3. Probable distributive shock secondary to medication overdose Patient with acute kidney injury. It is unclear if there was significant delay in 911 being called and hypotension leading to acute kidney injury. Patient also was in hyperosmolar non-ketosis, which does typically result in volume depletion. Patient will be treated with fluid boluses for now. Will try to use lactated Ringer's to avoid hypernatremia and hyperchloremia. 4. Acute kidney injury secondary to overdose and shock Patient with a previous creatinine of 1. Patient has responded to fluid resuscitation thus far. No indication for renal replacement therapy at this time. Will need to follow patient closely for the development of hypernatremia and hyperchloremia. 5. Obesity/poor history/depression/multiple suicide attempts Complicates care, management, recovery and prognosis. Social work is looking at obtaining more information. Remain n.p.o. while mental status is decreased. TIME: 42 minutes critical care time spent addressing patient's toxic encephalopathy, hyperosmolar non-ketosis, distributive shock, acute kidney injury, review of all data and collaboration with care team. Code Visit 9xxxx: [id number] Critical care first hour
[2017-06-04 11:31] LABS: Bedside Glucose 109 mg/dL (70-110)
--- NOTE | 2017-06-04 11:47 | CON.PCM_ITS ---
Problem List (1) ZOEY (acute kidney injury) Status: Acute (2) Hypokalemia Status: Chronic (3) Hypomagnesemia Status: Chronic (4) Diabetes Status: Chronic Qualifiers: Diabetes mellitus type: type 2 Diabetes mellitus complication status: with hyperosmolarity Diabetes mellitus complication detail: without coma Diabetes mellitus longterm insulin use: with long term care social worker use Qualified Code(s) : E11.00 - Type 2 diabetes mellitus with hyperosmolarity without nonketotic hyperglycemic-hyperosmolar coma ([facility]); Z79.4 - penitentiary (current) use of insulin; Z79.4 - technician terminal and repeater (current) use of insulin; Z79.4 - technician terminal and repeater (current ) use of insulin; Z79.4 - penitentiary (current) use of insulin (5) Anxiety Status: Chronic (6) Toxic encephalopathy Status: Acute (7) Suicide attempt Status: Acute (8) Hyperosmolar non-ketotic state in patient with type 2 diabetes mellitus Status: Acute Reason for Consult Date of Consultation: 06/04/17 Reason for Consultation: Overdose, encephalopathy, acute renal injury History of Present Illness: The patient is a 51 year old F, with past medical history listed below, who presented to [facility] on 06/04/2017 secondary to taking multiple medications in an attempt to hurt herself. Patient's /boyfriend reportedly called 911 after the patient had taken approximately 3 days worth of Farxiga, lisinopril, oxybutynin, tizanidine and 10 mg of Xanax. Patient reportedly had also drank moonshine, but on presentation alcohol level was 0. On ER evaluation, patient was noted to be in acute renal failure. Patient was admitted to the intensive care unit under suicide precautions. On evaluation today, patient is not very forthcoming with details. Patient does readily admit that she was trying to hurt her self, but is not going into great detail. Patient is very somnolent. Patient's insulin drip has been weaned throughout the day and is currently being transitioned over to sliding scale insulin. Patient also has been hypotensive and has received a liter of lactated Ringer's with good response. Given decreased mental status, an ABG was obtained.. Blood sugars will continue to be drawn Past Medical History Past Medical History (Chronic Problems): Chronic Problems Abdominal pain (Chronic) Hypokalemia (Chronic) Hypomagnesemia (Chronic) Diabetes (Chronic) Anxiety (Chronic) Allergies latex Allergy (Verified 06/03/17 18:57) Unknown Penicillins Allergy (Verified 09/10/15 18:42) Laryngospasms Home Medications: Ambulatory Orders Medication Instructions Recorded ALPRAZolam [Xanax] 1 mg PO TID 09/10/15 Aspirin [Aspirin, Baby] 81 mg PO DAILY@0800 09/10/15 Atorvastatin Calcium [Lipitor] 40 mg PO QHS 09/10/15 Cholecalciferol (Vitamin D3) 50,000 unit PO WE 09/10/15 [Decara] Folic Acid 1 mg PO DAILY@0800 09/10/15 Insulin Aspart [Novolog Flexpen] 20 units SC TIDCM 09/10/15 Insulin Glargine,Hum.rec.anlog 31 unit SQ QHS 09/10/15 [Lantus] Lisinopril [Zestril] 20 mg PO DAILY 09/10/15 Oxybutynin [Ditropan] 5 mg PO TID 09/10/15 Oxycodone [Oxyir] 5 - 10 mg PO Q6H PRN PRN 09/10/15 Sertraline HCl [Zoloft] 50 mg PO DAILY 09/10/15 Tizanidine HCl 8 mg PO 4X/DAY 09/10/15 Zolpidem Tartrate [Ambien] 10 mg PO QHS 09/10/15 Famotidine [Pepcid] 20 mg PO BID #60 tablet 09/13/15 ProMETHAzine [Phenergan] 25 mg PO Q4H PRN PRN #20 tablet 09/13/15 Surgical History: - - colonoscopy, egd, explorotory lap Smoking Status: Never smoker - *Family History Maternal History Items: Unknown Paternal History Items: Unknown Review of Systems Unable to obtain accurate/complete ROS d/t: Decreased mental status Patient Problems: Active and Suspected Problems ZOEY (acute kidney injury) (Acute) Toxic encephalopathy (Acute) Suicide attempt (Acute) Hyperosmolar non-ketotic state in patient with type 2 diabetes mellitus (Acute) Objective: Chest x-ray was personally reviewed and shows no acute infiltrate. - Physical Exam General: Lethargic, Non-Cooperative, - - Obese. RASS -3 HEENT: Atraumatic, PERRLA, EOMI, Normocephalic, - - No scleral icterus or injection noted. Oral: No Gingival or Mucosal Lesions/ Ulcerations, Dry Mucosa Neck: Supple, No JVD, No Nodes, Trachea Midline Lungs: No rhonchi, No wheeze, No rales, Diminished, - - Poor effort. No dullness to percussion. Cardiovascular: Regular rate, Regular Rhythm, Normal S1, Normal S2, No murmurs, No rub noted, No Gallop Abdomen: Bowel Sounds Present, Soft, Non Tender, Non-Distended, Obese Extremities: No clubbing, No cyanosis, No edema, Capillary Refill Less than 3 Seconds Skin: No rashes Musculoskeletal: No Tenderness to Palpation of Joints or Extremities, No Muscle Wasting Lymphatic: No Cervical, Supraclavicular, or Inguinal Adenopathy Neurological: Neuro grossly intact, Motor Exam 5/5 strength throughout, Sensory exam intact to light touch and pain, - - Not very cooperative with examination. Localizes to stimulus. Psych/Mental Status: Flat Affect Vital Signs Temp Pulse Resp BP Pulse Ox 36.1 C L 83 12 80/42 L 98 06/04/17 07:00 06/04/17 07:00 06/04/17 07:00 06/04/17 07:00 06/04/17 07:00 Oxygen Delivery Method Room Air Weight: 88.3 kg Body Mass Index (BMI) 34.7 Finger Stick Blood Glucose 206 Intake and Output for Last 24 Hours 06/02/17 06/03/17 06/04/17 23:59 23:59 23:59 Intake Total 1393.5 / 1393.5 Output Total 1750 / 1750 Balance -356.5 / -356.5 Laboratory Tests Past 24 Hrs 06/03/17 06/04/17 06/04/17 22:35 01:20 03:54 WBC RBC Hgb Hct MCV MCH MCHC RDW RDW Differential Plt Count MPV Sodium 134 L Potassium 3.8 Chloride 103 Carbon Dioxide 15.0 L Anion Gap 16 H BUN 74 H Creatinine 2.94 H Estim Creat Clear Calc 17.50 Est GFR (MDRD) Af Amer 21 L Est GFR (MDRD) Non-Af 18 L BUN/Creatinine Ratio 25.2 H Glucose 353 H Calcium 8.1 L Troponin I < 0.02 < 0.02 Salicylates Acetaminophen MRSA (PCR) Negative 06/04/17 06/04/17 06/04/17 03:54 03:54 10:24 WBC 9.7 RBC 3.44 L Hgb 11.2 L Hct 31.2 L MCV 90.7 MCH 32.6 H MCHC 35.9 RDW 11.9 RDW Differential 37.7 Plt Count 245 MPV 9.7 Sodium 141 Potassium 3.7 Chloride 111 H Carbon Dioxide 21.0 Anion Gap 9 BUN 68 H Creatinine 2.23 H Estim Creat Clear Calc 23.07 Est GFR (MDRD) Af Amer 30 L Est GFR (MDRD) Non-Af 24 L BUN/Creatinine Ratio 30.5 H Glucose 126 H Calcium 8.0 L Troponin I < 0.02 Salicylates 2.8 Acetaminophen < 2.0 L MRSA (PCR) POC Glucose 06/04/17 06/04/17 06/04/17 09:54 09:09 07:55 POC Glucose 143 H 151 H 175 H 06/04/17 06/04/17 06/04/17 06:28 05:30 04:34 POC Glucose 191 H 206 H 297 H 06/04/17 06/04/17 06/04/17 03:28 01:59 01:15 POC Glucose 369 H 427 H 457 H* 06/03/17 23:22 POC Glucose > 500 H* Clinical Impression(s) from Imaging Studies Brain CT 06/03/17 18:58 IMPRESSION: Normal unenhanced CT scan of the brain. Electronically Signed: Froylan Jimenez DO at 20:13 EST Tel [phone], Service support , Chest X-Ray 06/03/17 18:58 IMPRESSION: There is basilar interstitial prominence/atelectasis. Electronically Signed: Froylan Jimenez DO at 20:08 EST Tel [phone], Service support , Assessment/Plan Active and Suspected Problems ZOEY (acute kidney injury) (Acute) Toxic encephalopathy (Acute) Suicide attempt (Acute) Hyperosmolar non-ketotic state in patient with type 2 diabetes mellitus (Acute) RECOMMENDATIONS: 1. Continue to monitor respiratory status 2. Fluid boluses as necessary for hypotension 3. Discontinue insulin drip, sliding scale only 4. Continue frequent blood sugar checks 5. Suicide precautions, not medically stable for crisis evaluation at this time IMPRESSIONS: 1. Toxic encephalopathy secondary to suicide attempt with overdose Patient's mental status is marginal and fluctuating at this time. Patient has not an ABG that shows decreased compensation for metabolic acidosis , but overall tolerating well. Patient's blood sugars are well-controlled at this time. Will need to follow them given that Farxiga is renally excreted. Do anticipate prolonged recovery from overdose secondary to acute kidney injury. Cannot exclude the need for BiPAP rescue. Patient is not cleared for crisis evaluation at this time 2. Hyperosmolar non-ketosis She was placed on insulin drip overnight. Will discontinue insulin drip at this time. However, will need to continue to follow blood sugars closely as Farxiga is renally excreted. There have been case reports of non-anion gap DKA associated with its use. We will continue to monitor intermittent BMPs. If acidosis is worsening, may need to treat as a DKA with D5 half-normal saline and insulin drip. 3. Probable distributive shock secondary to medication overdose Patient with acute kidney injury. It is unclear if there was significant delay in 911 being called and hypotension leading to acute kidney injury. Patient also was in hyperosmolar non-ketosis, which does typically result in volume depletion. Patient will be treated with fluid boluses for now. Will try to use lactated Ringer's to avoid hypernatremia and hyperchloremia. 4. Acute kidney injury secondary to overdose and shock Patient with a previous creatinine of 1. Patient has responded to fluid resuscitation thus far. No indication for renal replacement therapy at this time. Will need to follow patient closely for the development of hypernatremia and hyperchloremia. 5. Obesity/poor history/depression/multiple suicide attempts Complicates care, management, recovery and prognosis. Social work is looking at obtaining more information. Remain n.p.o. while mental status is decreased. TIME: 42 minutes critical care time spent addressing patient's toxic encephalopathy , hyperosmolar non-ketosis, distributive shock, acute kidney injury, review of all data and collaboration with care team. Code Visit 9xxxx: [id number] Critical care first hour
[2017-06-04 11:51] LABS: Allen Test POS; Base Excess -8 mmol/L (-2 to +2); Bicarbonate 18.3 mmol/L (22-26); Blood Gas Specimen Type ART; O2 Delivery Device Room Air; PO2 81 mmHG (75-100); SITE L Brachial; SO2 95 % (95-99); Time Given 1130; Total Carbon Dioxide 19 mmol/L; pCO2 36.6 mmHg (35-45); pH 7.31 (7.35-7.45)
[2017-06-04 12:56] LABS: Bedside Glucose 135 mg/dL (70-110)
[2017-06-04 16:36] LABS: Bedside Glucose 114 mg/dL (70-110)
[2017-06-04] MEDS: Lactated Ringers 1,000 ML 125 ML IV (18:38)
[2017-06-05 02:00] VITALS: BP 112/56; PULSE 91; RESP 15; TEMP 36.6; O2SAT 97
[2017-06-05] MEDS: Lactated Ringers 1,000 ML 125 ML IV (02:59)
[2017-06-05 04:00] VITALS: PULSE 92
[2017-06-05 04:46] LABS: Hematocrit 30.1 % (37-47); Hemoglobin 10.5 g/dl (12.0-15.0); Mean Corp Hgb Conc 34.9 g/gl (32-36); Mean Corpuscular Hgb 32.4 pg (27.0-32.0); Mean Corpuscular Volume 92.9 fL (81-99); Platelet Count 218 K/mm3 (150-450); RBC Distribution Width CV 12.4 % (11.6-14.6); RBC Distribution Width SD 40.2 fl (35.1-43.9); Red Blood Count 3.24 M/mm3 (4.2-5.4); White Blood Count 8.6 K/mm3 (4.4-11.0)
[2017-06-05 04:48] LABS: Scan Indicated on CBC? Y/N NO
[2017-06-05 05:01] LABS: Magnesium 1.4 mg/dL (1.8-2.4); Phosphorus 2.5 mg/dL (2.5-4.9)
[2017-06-05 05:13] LABS: Anion Gap 9 (5-15); BUN 42 mg/dL (7-18); BUN/Creat Ratio 36.5 RATIO (10-20); Calcium,Total 8.5 mg/dL (8.5-10.1); Chloride 114 mmol/L (98-107); Creatinine, Serum 1.15 mg/dL (0.55-1.02); EST Glomerular Filtration Rate 52 mL/min (>60); Est Glom Filt Rate - Afr Amer 63 mL/min (>60); Estimated Creatinine Clearance 44.75 ml/min; Glucose 94 mg/dL (70-110); Potassium 3.4 mmol/L (3.5-5.1); Sodium Level 145 mmol/L (136-145)
[2017-06-05 05:51] VITALS: BP 128/61; PULSE 92; RESP 17; TEMP 36.4; O2SAT 100
--- NOTE | 2017-06-05 06:42 | PCM.PN.INT ---
Subjective: Patient did well overnight. No acute issues were reported. Patient is awake and interacting appropriately at this time. Patient has no complaints. Patient refusing breakfast at this time. General: Alert, Oriented x3, Cooperative, Non-Cooperative - At times, - - Obese. Speaking in full sentences. HEENT: Atraumatic, PERRLA, EOMI, Normocephalic, - - No scleral icterus or injection noted. Oral: Moist Mucosa, No Gingival or Mucosal Lesions/ Ulcerations Neck: Supple, No JVD, No Nodes, Trachea Midline Lungs: No rhonchi, No wheeze, No rales, Diminished, - - Symmetric expansion. No dullness to percussion. Cardiovascular: Regular rate, Regular Rhythm, Normal S1, Normal S2, No murmurs, No rub noted, No Gallop Abdomen: Bowel Sounds Present, Soft, Non Tender, Non-Distended, Obese Extremities: No clubbing, No cyanosis, No edema, Capillary Refill Less than 3 Seconds Skin: No rashes, No breakdown Musculoskeletal: No Tenderness to Palpation of Joints or Extremities, No Muscle Wasting Lymphatic: No Cervical, Supraclavicular, or Inguinal Adenopathy Neurological: Cranial nerves II-XII grossly intact, Neuro grossly intact, Motor Exam 5/5 strength throughout Psych/Mental Status: Impulsive, Restless, Suicidal Vital Signs Temp Pulse Resp BP Pulse Ox 36.4 C L 92 17 128/61 H 100 06/05/17 05:51 06/05/17 05:51 06/05/17 05:51 06/05/17 05:51 06/05/17 05:51 Oxygen Delivery Method Room Air Weight: 90.8 kg Body Mass Index (BMI) 34.7 Finger Stick Blood Glucose 206 Intake and Output for Last 24 Hours 06/03/17 06/04/17 06/05/17 23:59 23:59 23:59 Intake Total 5043.5 / 5043.5 2830 / 2830 Output Total 3300 / 3300 1850 / 1850 Balance 1743.5 / 1743.5 980 / 980 Labs (Last 48 Hours) 06/03/17 06/03/17 06/04/17 22:35 23:22 01:15 WBC RBC Hgb Hct MCV MCH MCHC RDW RDW Differential Plt Count MPV Specimen Type Sample Site pH Bicarbonate Actual POC Total CO2 Base Excess O2 Saturation ABG pCO2 ABG pO2 Jaime Test O2 Delivery Device Blood Gas Notified Whom Blood Gas Notified Time Sodium Potassium Chloride Carbon Dioxide Anion Gap BUN Creatinine Estim Creat Clear Calc Est GFR (MDRD) Af Amer Est GFR (MDRD) Non-Af BUN/Creatinine Ratio Glucose Calcium Phosphorus Magnesium Troponin I < 0.02 Salicylates Acetaminophen MRSA (PCR) POC Glucose > 500 H* 457 H* 06/04/17 06/04/17 06/04/17 01:20 01:59 03:28 WBC RBC Hgb Hct MCV MCH MCHC RDW RDW Differential Plt Count MPV Specimen Type Sample Site pH Bicarbonate Actual POC Total CO2 Base Excess O2 Saturation ABG pCO2 ABG pO2 Jamie Test O2 Delivery Device Blood Gas Notified Whom Blood Gas Notified Time Sodium Potassium Chloride Carbon Dioxide Anion Gap BUN Creatinine Estim Creat Clear Calc Est GFR (MDRD) Af Amer Est GFR (MDRD) Non-Af BUN/Creatinine Ratio Glucose Calcium Phosphorus Magnesium Troponin I Salicylates Acetaminophen MRSA (PCR) Negative POC Glucose 427 H 369 H 06/04/17 06/04/17 06/04/17 03:54 03:54 03:54 WBC 9.7 RBC 3.44 L Hgb 11.2 L Hct 31.2 L MCV 90.7 MCH 32.6 H MCHC 35.9 RDW 11.9 RDW Differential 37.7 Plt Count 245 MPV 9.7 Specimen Type Sample Site pH Bicarbonate Actual POC Total CO2 Base Excess O2 Saturation ABG pCO2 ABG pO2 Jamie Test O2 Delivery Device Blood Gas Notified Whom Blood Gas Notified Time Sodium 134 L Potassium 3.8 Chloride 103 Carbon Dioxide 15.0 L Anion Gap 16 H BUN 74 H Creatinine 2.94 H Estim Creat Clear Calc 17.50 Est GFR (MDRD) Af Amer 21 L Est GFR (MDRD) Non-Af 18 L BUN/Creatinine Ratio 25.2 H Glucose 353 H Calcium 8.1 L Phosphorus Magnesium Troponin I < 0.02 Salicylates 2.8 Acetaminophen < 2.0 L MRSA (PCR) POC Glucose 06/04/17 06/04/17 06/04/17 04:34 05:30 06:28 WBC RBC Hgb Hct MCV MCH MCHC RDW RDW Differential Plt Count MPV Specimen Type Sample Site pH Bicarbonate Actual POC Total CO2 Base Excess O2 Saturation ABG pCO2 ABG pO2 Jamie Test O2 Delivery Device Blood Gas Notified Whom Blood Gas Notified Time Sodium Potassium Chloride Carbon Dioxide Anion Gap BUN Creatinine Estim Creat Clear Calc Est GFR (MDRD) Af Amer Est GFR (MDRD) Non-Af BUN/Creatinine Ratio Glucose Calcium Phosphorus Magnesium Troponin I Salicylates Acetaminophen MRSA (PCR) POC Glucose 297 H 206 H 191 H 06/04/17 06/04/17 06/04/17 07:55 09:09 09:54 WBC RBC Hgb Hct MCV MCH MCHC RDW RDW Differential Plt Count MPV Specimen Type Sample Site pH Bicarbonate Actual POC Total CO2 Base Excess O2 Saturation ABG pCO2 ABG pO2 Jamie Test O2 Delivery Device Blood Gas Notified Whom Blood Gas Notified Time Sodium Potassium Chloride Carbon Dioxide Anion Gap BUN Creatinine Estim Creat Clear Calc Est GFR (MDRD) Af Amer Est GFR (MDRD) Non-Af BUN/Creatinine Ratio Glucose Calcium Phosphorus Magnesium Troponin I Salicylates Acetaminophen MRSA (PCR) POC Glucose 175 H 151 H 143 H 06/04/17 06/04/17 06/04/17 10:24 11:00 11:33 WBC RBC Hgb Hct MCV MCH MCHC RDW RDW Differential Plt Count MPV Specimen Type ART Sample Site L Brachial pH 7.31 L Bicarbonate Actual 18.3 L POC Total CO2 19 Base Excess -8 L O2 Saturation 95 ABG pCO2 36.6 ABG pO2 81 Jamie Test POS O2 Delivery Device Room Air Blood Gas Notified Whom ICU MD Blood Gas Notified Time 1130 Sodium 141 Potassium 3.7 Chloride 111 H Carbon Dioxide 21.0 Anion Gap 9 BUN 68 H Creatinine 2.23 H Estim Creat Clear Calc 23.07 Est GFR (MDRD) Af Amer 30 L Est GFR (MDRD) Non-Af 24 L BUN/Creatinine Ratio 30.5 H Glucose 126 H Calcium 8.0 L Phosphorus Magnesium Troponin I < 0.02 Salicylates Acetaminophen MRSA (PCR) POC Glucose 109 06/04/17 06/04/17 06/05/17 12:51 16:07 04:30 WBC 8.6 RBC 3.24 L Hgb 10.5 L Hct 30.1 L MCV 92.9 MCH 32.4 H MCHC 34.9 RDW 12.4 RDW Differential 40.2 Plt Count 218 MPV 9.0 Specimen Type Sample Site pH Bicarbonate Actual POC Total CO2 Base Excess O2 Saturation ABG pCO2 ABG pO2 Jamie Test O2 Delivery Device Blood Gas Notified Whom Blood Gas Notified Time Sodium Potassium Chloride Carbon Dioxide Anion Gap BUN Creatinine Estim Creat Clear Calc Est GFR (MDRD) Af Amer Est GFR (MDRD) Non-Af BUN/Creatinine Ratio Glucose Calcium Phosphorus Magnesium Troponin I Salicylates Acetaminophen MRSA (PCR) POC Glucose 135 H 114 H 06/05/17 06/05/17 04:30 04:30 WBC RBC Hgb Hct MCV MCH MCHC RDW RDW Differential Plt Count MPV Specimen Type Sample Site pH Bicarbonate Actual POC Total CO2 Base Excess O2 Saturation ABG pCO2 ABG pO2 Jamie Test O2 Delivery Device Blood Gas Notified Whom Blood Gas Notified Time Sodium 145 Potassium 3.4 L Chloride 114 H Carbon Dioxide 22.0 Anion Gap 9 BUN 42 H Creatinine 1.15 H Estim Creat Clear Calc 44.75 Est GFR (MDRD) Af Amer 63 Est GFR (MDRD) Non-Af 52 L BUN/Creatinine Ratio 36.5 H Glucose 94 Calcium 8.5 Phosphorus 2.5 Magnesium 1.4 L Troponin I Salicylates Acetaminophen MRSA (PCR) POC Glucose Assessment/Plan Active and Suspected Problems ZOEY (acute kidney injury) (Acute) Toxic encephalopathy (Acute) Suicide attempt (Acute) Hyperosmolar non-ketotic state in patient with type 2 diabetes mellitus (Acute) RECOMMENDATIONS: 1. Okay to initiate p.o. diet 2. Discontinuation of Ngo and IV fluids 3. Discontinue insulin drip, sliding scale only 4. Electrolyte repletion as ordered 5. Suicide precautions, medically stable for crisis evaluation at this time IMPRESSIONS: 1. Toxic encephalopathy secondary to suicide attempt with overdose Patient appears to be back to her baseline status. Patient is obstinate with staff, but has no complaints at this time. Patient asking to speak with her to get the hell out of here. 2. Hyperosmolar non-ketosis Insulin drip has been discontinued. Patient currently on sliding scale insulin. Blood sugars have been well controlled. 3. Probable distributive shock secondary to medication overdose She once acute kidney injury initially. Patient is back down to normal range at this time. Minor electrolyte repletion has been ordered. Toxic effect from overdose medications would be the likely etiology. 4. Acute kidney injury secondary to overdose and shock Patient with a previous creatinine of 1. Patient did receive significant fluid boluses yesterday, but renal function is essentially normalized. Patient would be stable for psychiatric evaluation. 5. Obesity/poor history/depression/multiple suicide attempts Complicates care, management, recovery and prognosis. Okay to initiate carb controlled cardiac diet. Code Visit Inpatient E&M: 50382 Subs Hosp L3
--- NOTE | 2017-06-05 07:45 | NURSING ---
Pt upset, agitated, yelling she wants to call her . Very verbally abusive to staff. Bedside report taken from JOHANA Savage. Advised pt that I will come back in and assist her with calling her after seeing another patient.
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
--- NOTE | 2017-06-05 08:15 | NURSING ---
Pt up to [facility] to void but was unable to at this time. Security was present prior to pt getting up d/t pt yelling & threatening to leave.
--- NOTE | 2017-06-05 08:30 | NURSING ---
Pt up to [facility], voided 150cc. Pt states I am mad that no one came in to help me right away when I saw them at the desk and they weren't busy. Reminded pt that she had asked me not to allow anyone in the room besides this RN. Pt states Well yeah but when someone has to piss they should come help. Told pt I told them not to enter per her wishes. Pt states I do not want them to come back in my room and I will piss the bed waiting for you before I'll let those bitches help me.
[2017-06-05] MEDS: ALPRAZolam 0.5 MG Tablet 1 MG PO ×2 (09:10→18:07)
[2017-06-05] MEDS: Ceftriaxone 1 GM/50 ML BAG IV (09:15)
[2017-06-05 09:21] LABS: Bedside Glucose 140 mg/dL (70-110)
[2017-06-05 10:00] VITALS: BP 135/70; PULSE 90; RESP 16; TEMP 36.3; O2SAT 98
--- NOTE | 2017-06-05 10:58 | CASEMGMT ---
Received a call from Gabbie, Crisis counselor, who explained she would be coming to evaluate pt for inpt psychiatric admission. Gabbie stated she felt it would be beneficial to her in seeking to coordinate transfer if pt had an established discharge plan for post-inpt psychiatric evaluation and stabilization. Gabbie shared that pt is alone most of the day and it is her understanding that this has contributed to pt's depression, suicidal ideation. Discussed with Gabbie that the discharge plan from inpt psychiatry would depend significantly on pt's status at the time of discharge from that unit and explained that adult day stay programs, home health providers, and nursing homes would all require current information when determining whether they would be able to accept pt into their services. Gabbie voiced understanding and stated she would be coming to the hospital to assess pt. JOHANA Hamilton on ICU updated.
--- NOTE | 2017-06-05 13:28 | PCM.PN.HOSP ---
Patient Problems: Active and Suspected Problems ZOEY (acute kidney injury) (Acute) Toxic encephalopathy (Acute) Suicide attempt (Acute) Hyperosmolar non-ketotic state in patient with type 2 diabetes mellitus (Acute) Subjective: Patient so much more alert today. The patient seen by psychiatric liaison and has expressed to her numerous social factors, including expectant of her daughter couple months ago. Vitals/I&O's: Vital Signs Temp Pulse Resp BP Pulse Ox 36.3 C L 90 16 135/70 H 98 06/05/17 10:00 06/05/17 10:00 06/05/17 10:00 06/05/17 10:00 06/05/17 10:00 Oxygen Delivery Method Room Air Weight: 90.8 kg Body Mass Index (BMI) 34.7 Finger Stick Blood Glucose 206 Intake and Output for Last 24 Hours 06/03/17 06/04/17 06/05/17 23:59 23:59 23:59 Intake Total 5043.5 / 5043.5 2830 / 2830 Output Total 3300 / 3300 1850 / 1850 Balance 1743.5 / 1743.5 980 / 980 General: Alert, Cooperative, No apparent distress HEENT: Atraumatic, Normocephalic Lungs: Clear to auscultation, Normal air movement, No rhonchi, No wheeze Cardiovascular: Regular rate, Regular Rhythm, Normal S1, Normal S2, No murmurs Abdomen: Bowel Sounds Present, Soft, Non Tender, Non-Distended Laboratory Results 06/04/17 16:07: POC Glucose 114 H 06/05/17 04:30: WBC 8.6, RBC 3.24 L, Hgb 10.5 L, Hct 30.1 L, MCV 92.9, MCH 32.4 H, MCHC 34.9, RDW 12.4, RDW Differential 40.2, Plt Count 218, MPV 9.0 06/05/17 04:30: Sodium 145, Potassium 3.4 L, Chloride 114 H, Carbon Dioxide 22.0, Anion Gap 9, BUN 42 H, Creatinine 1.15 H, Estim Creat Clear Calc 44.75, Est GFR (MDRD) Af Amer 63, Est GFR (MDRD) Non-Af 52 L, BUN/Creatinine Ratio 36.5 H, Glucose 94, Calcium 8.5 06/05/17 04:30: Phosphorus 2.5, Magnesium 1.4 L 06/05/17 09:14: POC Glucose 140 H Current Medications Alprazolam (Xanax) 1 mg PO TID PRN PRN Reason: ANXIETY Last Admin: 06/05/17 09:10 Dose: 1 mg Dextrose (D50w Syringe) 0 gm IV X1 PRN; Protocol PRN Reason: Hypoglycemia Glucagon () 1 mg IM .X1 PRN PRN Reason: Hypoglycemia Heparin Sodium (Porcine) () 5,000 units SC BID [facility] Last Admin: 06/05/17 09:36 Dose: Not Given Ceftriaxone Sodium (Rocephin) 1 gm in 50 mls @ 100 mls/hr IV Q24 [facility] Last Admin: 06/05/17 09:15 Dose: 100 mls/hr Lactated Ringer's () 1,000 mls @ 125 mls/hr IV .Q8H [facility] Last Admin: 06/05/17 10:58 Dose: Not Given Insulin Aspart (Novolog Flexpen ([facility])) 20 units SC TIDAC [facility] Last Admin: 06/05/17 06:38 Dose: Not Given Insulin Detemir (Levemir ([facility])) 30 units SC DAILY [facility] Last Admin: 06/05/17 09:15 Dose: 30 u Magnesium Hydroxide (Milk Of Magnesia) 30 ml PO DAILY PRN PRN PRN Reason: Constipation Sodium Chloride () 5 - 30 ml IV UD PRN PRN Reason: SALINE FLUSH Assessment/Plan Active and Suspected Problems ZOEY (acute kidney injury) (Acute) Toxic encephalopathy (Acute) Suicide attempt (Acute) Hyperosmolar non-ketotic state in patient with type 2 diabetes mellitus (Acute) 1. Toxic encephalopathy Due to an intentional overdose patient's Xanax. Improved somewhat Continue supportive management at this time. 2. Suicide attempt Patient will need to go to a psychiatric hospital for management when she has been medically medically stabilized. Seen by the liaison and patient was deemed a candidate for inpatient psychiatric stay. Patient will be transferred from this hospital directly to another psychiatric unit. 3. Hyperosmolar non-ketosis On insulin drip. Blood sugars have improved significantly. Would transition back to her basal and prandial insulins now that her blood sugars are greatly improved. 4. Chronic benzodiazepine use. Reviewed her OARRS, and patient has been getting her Xanax from a provider. Last prescription was filled on the . Therefore, would not abruptly discontinue Ativan once patient has become more alert but to wean that off over several weeks. But given the patient's obtundation at this point time, would certainly hold the benzos. But would reintroduce if patient starts going through withdrawal which she is certainly not going to her at this time. 5. Acute kidney injury Suspect prerenal. Baseline creatinine is prior around 1 which was performed in August 2015. Possible that her kidney function may have gotten worse in the interim, however. Resolved Hep-Lock IV 6. DVT prophylaxis with subcu heparin
--- NOTE | 2017-06-05 13:33 | PCM.DC ---
- Discharge Diagnoses Current Active Problems: Current Active and Chronic Problems ZOEY (acute kidney injury) (Acute) Toxic encephalopathy (Acute) Suicide attempt (Acute) Hyperosmolar non-ketotic state in patient with type 2 diabetes mellitus (Acute) You will use the following diet at home:: No restrictions Your food should be the consistency of: Regular Discharge Activity: Return to Normal Activity Call your doctor if you observe: Fever of 101 or Higher, Shortness of breath Allergies/Adverse Reactions: Allergies latex Allergy (Verified 06/03/17 18:57) Unknown Penicillins Allergy (Verified 09/10/15 18:42) Laryngospasms Medications to take at Discharge Aspirin [Aspirin, Baby] 81 mg PO DAILY@0800 09/10/15 Atorvastatin Calcium [Lipitor] 40 mg PO QHS 09/10/15 Cholecalciferol (Vitamin D3) [Decara] 50,000 unit PO WE 09/10/15 Folic Acid 1 mg PO DAILY@0800 09/10/15 Insulin Aspart [Novolog Flexpen] 20 units SC TIDCM 09/10/15 Insulin Glargine,Hum.rec.anlog [Lantus] 31 unit SQ QHS 09/10/15 Lisinopril [Zestril] 20 mg PO DAILY 09/10/15 Oxybutynin [Ditropan] 5 mg PO TID 09/10/15 Sertraline HCl [Zoloft] 50 mg PO DAILY 09/10/15 Tizanidine HCl 8 mg PO 4X/DAY 09/10/15 Famotidine [Pepcid] 20 mg PO BID #60 tablet 09/13/15 ProMETHAzine [Phenergan] 25 mg PO Q4H PRN PRN #20 tablet 09/13/15 ALPRAZolam [Xanax] 1 mg PO TID PRN #0 06/05/17 Levofloxacin [Levaquin] 500 mg PO DAILY #4 tablet 06/05/17 The following prescriptions were given: Levofloxacin [Levaquin] 500 mg PO DAILY #4 tablet Primary Care Physician: Simone Grey MD [Primary Care Provider] - Within 2 Weeks Proposed Discharge Date: 06/05/17
--- NOTE | 2017-06-05 13:34 | PCM.DC.SUM ---
Discharge Date and Diagnosis - Problem List Patient Problems: Active and Suspected Problems Aspiration pneumonia (Acute) ZOEY (acute kidney injury) (Acute) Toxic encephalopathy (Acute) Suicide attempt (Acute) Hyperosmolar non-ketotic state in patient with type 2 diabetes mellitus (Acute) Date of Admission: 06/03/17 Date of Discharge: 06/05/17 - Primary Discharge Diagnosis Active and Suspected Problems ZOEY (acute kidney injury) (Acute) Toxic encephalopathy (Acute) Suicide attempt (Acute) Hyperosmolar non-ketotic state in patient with type 2 diabetes mellitus (Acute) - Secondary Discharge Diagnosis Chronic Problems Abdominal pain (Chronic) Hypokalemia (Chronic) Hypomagnesemia (Chronic) Diabetes (Chronic) Anxiety (Chronic) Hospital Course and Treatment Imaging Results: Clinical Impression(s) from Imaging Studies Brain CT 06/03/17 18:58 IMPRESSION: Normal unenhanced CT scan of the brain. Electronically Signed: Froylan Jimenez DO at 20:13 EST Tel [phone], Service support , Chest X-Ray 06/03/17 18:58 IMPRESSION: There is basilar interstitial prominence/atelectasis. Electronically Signed: Froylan Jimenez DO at 20:08 EST Tel [phone], Service support , Consultations 06/05/17 08:29 Consult: Mental Health/Crisis Routine Reason for consult?: pink slipped, intentional overdose, attempted suicide Date Notified:: 06/05/17 Time notified:: 08:25 Operations: None Procedures: None Summary of Care Provided: The patient is a 51 year old F presents with change in mental status. Patient had a ingested several Xanax and some unknown substance that may have been moonshine. This was admitted suicide attempts at least afterwards. Patient presented to the emergency room with acute kidney injury metabolic acidosis and hyperosmolar non-ketosis. It was started on insulin drip as well as IV fluids. Patient's creatinine did improve. Patient's height hyperglycemia also improved and patient was transitioned over to her standard insulin dosing. Patient did come to she did admit to use this being a suicide attempt. Patient was monitored in ICU, did not require intubation. Chest x-ray was concerning for aspiration pneumonia as patient was started on Rocephin. That will be changed over to Levaquin to complete a 5 day course of antibiotics. Patient was seen by the psychiatric liaison felt patient would be a good candidate for going to a psychiatric unit. Patient is currently medically stable for transfer to a psychiatric unit. Patient is on Xanax at home. Would not stop abruptly, however, given this suicide attempt would recommend weaning that down over several weeks to off. [] Discharge Diet: No Restrictions Discharge Activity: Return to Normal Activity Call your doctor if you observe: Fever of 101 or Higher, Shortness of breath Home Medications: Medications to take at Discharge Aspirin [Aspirin, Baby] 81 mg PO DAILY@0800 09/10/15 Atorvastatin Calcium [Lipitor] 40 mg PO QHS 09/10/15 Cholecalciferol (Vitamin D3) [Decara] 50,000 unit PO WE 09/10/15 Folic Acid 1 mg PO DAILY@0800 09/10/15 Insulin Aspart [Novolog Flexpen] 20 units SC TIDCM 09/10/15 Insulin Glargine,Hum.rec.anlog [Lantus] 31 unit SQ QHS 09/10/15 Lisinopril [Zestril] 20 mg PO DAILY 09/10/15 Oxybutynin [Ditropan] 5 mg PO TID 09/10/15 Sertraline HCl [Zoloft] 50 mg PO DAILY 09/10/15 Tizanidine HCl 8 mg PO 4X/DAY 09/10/15 Famotidine [Pepcid] 20 mg PO BID #60 tablet 09/13/15 ProMETHAzine [Phenergan] 25 mg PO Q4H PRN PRN #20 tablet 09/13/15 ALPRAZolam [Xanax] 1 mg PO TID PRN #0 06/05/17 Levofloxacin [Levaquin] 500 mg PO DAILY #4 tablet 06/05/17 Following Prescrptions Were Given to Patient: Levofloxacin [Levaquin] 500 mg PO DAILY #4 tablet Primary Care Physician: Simone Grey MD [Primary Care Provider] - Within 2 Weeks Disposition: Psych Hospital or Unit Minutes spent on discharge:: 32 Patient Condition:: Good Meaningful Use Info Meaningful Use Diagnoses (Choose all that apply): None applicable Code Visit Inpatient E&M: 11109 Disch Hosp
--- NOTE | 2017-06-05 13:38 | DS.PCM_ITS ---
Discharge Date and Diagnosis - Problem List Patient Problems: Active and Suspected Problems Aspiration pneumonia (Acute) ZOEY (acute kidney injury) (Acute) Toxic encephalopathy (Acute) Suicide attempt (Acute) Hyperosmolar non-ketotic state in patient with type 2 diabetes mellitus (Acute) Date of Admission: 06/03/17 Date of Discharge: 06/05/17 - Primary Discharge Diagnosis Active and Suspected Problems ZOEY (acute kidney injury) (Acute) Toxic encephalopathy (Acute) Suicide attempt (Acute) Hyperosmolar non-ketotic state in patient with type 2 diabetes mellitus (Acute) - Secondary Discharge Diagnosis Chronic Problems Abdominal pain (Chronic) Hypokalemia (Chronic) Hypomagnesemia (Chronic) Diabetes (Chronic) Anxiety (Chronic) Hospital Course and Treatment Imaging Results: Clinical Impression(s) from Imaging Studies Brain CT 06/03/17 18:58 IMPRESSION: Normal unenhanced CT scan of the brain. Electronically Signed: Froylan Jimenez DO at 20:13 EST Tel [phone], Service support , Chest X-Ray 06/03/17 18:58 IMPRESSION: There is basilar interstitial prominence/atelectasis. Electronically Signed: Froylan Jimenez DO at 20:08 EST Tel [phone], Service support , Consultations 06/05/17 08:29 Consult: Mental Health/Crisis Routine Reason for consult?: pink slipped, intentional overdose, attempted suicide Date Notified:: 06/05/17 Time notified:: 08:25 Operations: None Procedures: None Summary of Care Provided: The patient is a 51 year old F presents with change in mental status. Patient had a ingested several Xanax and some unknown substance that may have been moonshine. This was admitted suicide attempts at least afterwards. Patient presented to the emergency room with acute kidney injury metabolic acidosis and hyperosmolar non-ketosis. It was started on insulin drip as well as IV fluids. Patient's creatinine did improve. Patient's height hyperglycemia also improved and patient was transitioned over to her standard insulin dosing. Patient did come to she did admit to use this being a suicide attempt. Patient was monitored in ICU, did not require intubation. Chest x-ray was concerning for aspiration pneumonia as patient was started on Rocephin. That will be changed over to Levaquin to complete a 5 day course of antibiotics. Patient was seen by the psychiatric liaison felt patient would be a good candidate for going to a psychiatric unit. Patient is currently medically stable for transfer to a psychiatric unit. Patient is on Xanax at home. Would not stop abruptly, however, given this suicide attempt would recommend weaning that down over several weeks to off. [] Discharge Diet: No Restrictions Discharge Activity: Return to Normal Activity Call your doctor if you observe: Fever of 101 or Higher, Shortness of breath Home Medications: Medications to take at Discharge Aspirin [Aspirin, Baby] 81 mg PO DAILY@0800 09/10/15 Atorvastatin Calcium [Lipitor] 40 mg PO QHS 09/10/15 Cholecalciferol (Vitamin D3) [Decara] 50,000 unit PO WE 09/10/15 Folic Acid 1 mg PO DAILY@0800 09/10/15 Insulin Aspart [Novolog Flexpen] 20 units SC TIDCM 09/10/15 Insulin Glargine,Hum.rec.anlog [Lantus] 31 unit SQ QHS 09/10/15 Lisinopril [Zestril] 20 mg PO DAILY 09/10/15 Oxybutynin [Ditropan] 5 mg PO TID 09/10/15 Sertraline HCl [Zoloft] 50 mg PO DAILY 09/10/15 Tizanidine HCl 8 mg PO 4X/DAY 09/10/15 Famotidine [Pepcid] 20 mg PO BID #60 tablet 09/13/15 ProMETHAzine [Phenergan] 25 mg PO Q4H PRN PRN #20 tablet 09/13/15 ALPRAZolam [Xanax] 1 mg PO TID PRN #0 06/05/17 Levofloxacin [Levaquin] 500 mg PO DAILY #4 tablet 06/05/17 Following Prescrptions Were Given to Patient: Levofloxacin [Levaquin] 500 mg PO DAILY #4 tablet Primary Care Physician: Simone Grey MD [Primary Care Provider] - Within 2 Weeks Disposition: Psych Hospital or Unit Minutes spent on discharge:: 32 Patient Condition:: Good Meaningful Use Info Meaningful Use Diagnoses (Choose all that apply): None applicable Code Visit Inpatient E&M: 52551 Disch Hosp
[2017-06-05 14:20] VITALS: BP 124/55; PULSE 81; RESP 18; TEMP 36.4; O2SAT 99
[2017-06-05 14:36] LABS: Bedside Glucose 135 mg/dL (70-110)
[2017-06-05 17:57] LABS: Bedside Glucose 175 mg/dL (70-110)
[2017-06-05 19:00] VITALS: BP 181/86; PULSE 88; RESP 18; TEMP 36.4; O2SAT 99
--- NOTE | 2017-06-05 19:45 | NURSING ---
Spoke with [facility] in regards to pt coming to them in soft wrist restrains, They denied the pt admission to that facility due to change in behavior and need for restraints. At this time, the physician here Dr Mccall was notified and came to see the pt and speak with her, Dr Mccall evaluated the pt and stated he would like for crisis to come in and re-evaluate the pt at this time due to behavior change. We are to keep the pt here in ICU at this time and continue to monitor until further notice.
--- NOTE | 2017-06-05 20:30 | NURSING ---
Crisis here to re-evaluate pt at this time they are attempting to place her in [facility] instead of previous placement due to her increase in behavioral needs at this time. Staff is awaiting approval for her acceptance to [facility] we shall keep the pt overnight here in the ICU to monitor with a close watch. Pt has been placed on a 1:1 status with her RN per [employer] Minda, she will remain this status until placement due to increase of suicidal ideation and threats of harming herself while here in the hospital.
--- NOTE | 2017-06-05 20:40 | NURSING ---
Called to unit because pt refusing transport to psych facility. This rn spoke with pt about importance of her receiving treatment to help her cope with the of her daughter. Pt states there isn't anything anyone can do to help her. Pt continues to refuse transport. States she is leaving this facility tonight and we will not be able to keep her here. Dr Chen notified and at bedside. Pt stated See that window, I will jump right out of it. I am not staying here, you can't keep me here forever. [place] slip and [facility]'s responsibility to keep her and others safe explained to patient. Crisis center aware of situation and spoke with Dr Chen. Crisis stated she will be into see pt. Crisis arrived at 2054 and aware of the events
--- NOTE | 2017-06-05 20:45 | NURSING ---
Attempting to discuss discharge plans with pt. She has been issued a pink slip and is being transferred to [facility] at this time. Pt states that she will not leave this facility willingly. She says she would rather jump out the window than leave this hospital to go to a psych facility. notified.
[2017-06-06 00:16] LABS: AST(SGOT) 16 U/L (15-37); Alanine Aminotransfer ALT/SGPT 16 U/L (12-78); Albumin, Serum 2.9 g/dL (3.4-5.0); Alkaline Phosphatase 191 U/L (45-117); Bilirubin, Direct 0.08 mg/dL (0.00-0.30); Globulin 3.8 g/dL (2.2-4.2); Protein, Total 6.7 g/dL (6.4-8.2)
[2017-06-06 02:15] VITALS: BP 141/86; PULSE 77; RESP 18; TEMP 36.4; O2SAT 98
--- NOTE | 2017-06-06 02:15 | NURSING ---
Pt is repeatedly apologizing for her behavior last evening. She states she is ready and willing to be transferred to the psychiatric facility.
[2017-06-06] MEDS: ALPRAZolam 0.5 MG Tablet 1 MG PO (03:12)
[2017-06-06] MEDS: levoFLOXacin 500 MG Tablet PO (03:12)
[2017-06-06 08:00] VITALS: BP 121/58; PULSE 80; RESP 16; TEMP 36.9; O2SAT 98
[2017-06-06 08:07] LABS: Partial Thromboplast Time 54.9 Seconds (24.1-36.2)
[2017-06-06 08:10] LABS: Prothrombin Time (Protime)PT. 12.9 SECONDS (11.7-14.9)
[2017-06-06 08:11] LABS: Bedside Glucose 120 mg/dL (70-110)
[2017-06-06 08:28] LABS: Anion Gap 10 (5-15); BUN 23 mg/dL (7-18); Calcium,Total 8.6 mg/dL (8.5-10.1); Chloride 112 mmol/L (98-107); EST Glomerular Filtration Rate 62 mL/min (>60); Est Glom Filt Rate - Afr Amer 74 mL/min (>60); Estimated Creatinine Clearance 51.46 ml/min; Glucose 119 mg/dL (70-110); Hemoglobin 11.6 g/dl (12.0-15.0); Mean Corp Hgb Conc 33.1 g/gl (32-36); Mean Corpuscular Hgb 31.5 pg (27.0-32.0); Mean Corpuscular Volume 95.1 fL (81-99); Mean Platelet Vol. 9.6 fl (6.2-12.0); Platelet Count 279 K/mm3 (150-450); Potassium 4.1 mmol/L (3.5-5.1); RBC Distribution Width CV 12.8 % (11.6-14.6); Red Blood Count 3.68 M/mm3 (4.2-5.4); Sodium Level 146 mmol/L (136-145); White Blood Count 9.1 K/mm3 (4.4-11.0)
[2017-06-06 08:29] LABS: Scan Indicated on CBC? Y/N NO
[2017-06-06 12:51] LABS: Bedside Glucose 147 mg/dL (70-110)
[2017-06-06 14:00] VITALS: BP 137/72; PULSE 84; RESP 16; TEMP 36.9; O2SAT 98
== END 2017-06-06 14:10 | disposition designated cancer center or children's hospital (05) | DRG 817 ==
LOC: ED 19:58 → ICU 06-04 07:11
PROVIDERS: Internal Medicine; Internal Medicine Critical Care Medicine; Admitting Provider Internal Medicine; Emergency Provider Emergency Medicine; Family Provider Family Medicine; PCP Family Medicine
DX: T42.4X2A Poisoning by benzodiazepines, intentional self-harm, initial encounter (principal); N17.9 Acute kidney failure, unspecified; E87.5 Hyperkalemia; E11.65 Type 2 diabetes mellitus with hyperglycemia; E87.1 Hypo-osmolality and hyponatremia; N30.00 Acute cystitis without hematuria; E83.42 Hypomagnesemia; Z79.4 Long term (current) use of insulin; F41.9 Anxiety disorder, unspecified; Z79.899 Other long term (current) drug therapy; E87.6 Hypokalemia
CPT/HCPCS: 36415; 36600; 51702; 70450; 71010; 80048; 80053; 80076; 80307; 80320; 80329; 81001; 81025; 82009; 82803; 82962; 83605; 83690; 83735; 83930; 84100; 84484; 85025; 85027; 85610; 85730; 87086; 87088; 87641; 93005; 99285; J7030; J7120; A4216; G0480

== ENCOUNTER → 2017-11-05 17:38 | Outpatient (CLI) | payer MEDICAID, SELFPAY ==
--- NOTE | 2017-11-05 17:41 | CT_ITS ---
STUDY: CT ABDOMEN AND PELVIS WITH CONTRAST REASON FOR EXAM: Female, 52 years old. Mid abdominal pain RADIATION DOSAGE (If Supplied By Facility): CTDIvol = ( 12.68 ) mGy, DLP = ( 1028.83 ) mGycm TECHNIQUE: Transaxial images were obtained from the dome of the diaphragm to the symphysis pubis without oral contrast. 100ml ml of Isovue 300 contrast was administered. Sagittal and coronal images were reconstructed. Individualized dose optimization techniques were used for this CT. COMPARISON: September 10, 2015 FINDINGS: The visualized lung bases are unremarkable. The visualized portions of the heart are within normal limits. Normal liver. Status post cholecystectomy. Minimal prominence of the biliary system. Normal spleen. Normal pancreas. Normal bilateral adrenal glands. Normal right kidney. Normal left kidney. Normal visualized stomach. Normal small intestine. Normal colon. The appendix is visualized and appears normal. Calcified abdominal aorta. Normal inferior vena cava. Normal retroperitoneum. Stable mesenteric nodes are again noted. Normal urinary bladder. Normal uterus. Normal abdominal wall. Grade 1 spondylolisthesis at L4-5 with narrowed disc space, new since the previous study. CT/Abdomen/Pelvis WITH Contrast IMPRESSION: No acute pathology of the abdomen and pelvis. New grade 1 spondylolisthesis at L4-5. Electronically Signed: Froylan Jimenez DO at 22:58 EDT Tel [phone], Service support ,
[2017-11-05 18:11] LABS: CREATININE FINGERSTICK 1.4 mg/dL (0.55-1.02)
== END ==
PROVIDERS: Family Provider Internal Medicine; PCP Internal Medicine; Visit Provider Internal Medicine
DX: R10.9 Unspecified abdominal pain (principal)
CPT/HCPCS: 74177; Q9967

== ENCOUNTER → 2018-05-19 10:45 | Outpatient (CLI) | payer MEDICAID, SELFPAY ==
[2017-10-14 15:22] VITALS: BMI 36.9
[2018-05-19 12:38] LABS: Absolute Lymphocyte Count 1.61 X10^3/ul (0.83-4.51); Absolute Neutrophil Count 5.3 X10^3/uL (2.0-7.7); Basophil# 0.01 X10^3/uL; Basophil% 0.1 % (0-1); Eosinophil# 0.24 X10^3/uL; Eosinophils% 3.2 % (0-5); Hematocrit 39.8 % (37-47); Hemoglobin 13.5 g/dl (12.0-15.0); Lymphocyte # 1.61 X10^3/ul (4.0); Lymphocyte % 21.2 % (19-41); Mean Corp Hgb Conc 33.9 g/gl (32-36); Mean Corpuscular Hgb 30.1 pg (27.0-32.0); Mean Corpuscular Volume 88.8 fL (81-99); Mean Platelet Vol. 10.3 fl (6.2-12.0); Monocyte# 0.42 X10^3/uL; Monocyte% 5.5 % (0-10); Neutrophil # 5.26 X10^3/uL (2.7-7.7); Neutrophil % 69.1 % (47-70); POSITIVE COUNT NO; POSITIVE DIFFERENTIAL NO; POSITIVE MORPHOLOGY NO; Platelet Count 236 K/mm3 (150-450); RBC Distribution Width CV 13.3 % (11.6-14.6); RBC Distribution Width SD 40.9 fl (35.1-43.9); Red Blood Count 4.48 M/mm3 (4.2-5.4); White Blood Count 7.6 K/mm3 (4.4-11.0)
[2018-05-19 13:41] LABS: Anion Gap 9 (5-15); BUN 31 mg/dL (7-18); BUN/Creat Ratio 23.7 RATIO (10-20); Calcium,Total 8.7 mg/dL (8.5-10.1); Chloride 92 mmol/L (98-107); Creatinine, Serum 1.31 mg/dL (0.55-1.02); EST Glomerular Filtration Rate 45 mL/min (>60); Est Glom Filt Rate - Afr Amer 54 mL/min (>60); Glucose 955 mg/dL (74-106); Potassium 3.5 mmol/L (3.5-5.1); Sodium Level 128 mmol/L (136-145); Thyroid Stim Hormone (TSH) 1.92 uIU/mL (0.358-3.74)
--- OUTSIDE RECORDS SUMMARY | 2018-07-14 13:08 | XMS RPT_ITS ---
:1965 Author Organization OHIP Support Name Relationship Address Phone UE Unavailable Unavailable Unavailable TREY SHAW Unavailable [address] + [place] [address] UE Unavailable Unavailable Unavailable TREY SHAW Unavailable [address] + [place] [address] UE Unavailable Unavailable Unavailable TREY SHAW Unavailable [address] + [place] [address] UE Unavailable Unavailable Unavailable TREY SHAW Unavailable [address] + [place] [address] UE Unavailable Unavailable Unavailable TREY SHAW Unavailable [address] + [place] [address] UE Unavailable Unavailable Unavailable TREY SHAW Unavailable [address] + [place] [address] UE Unavailable Unavailable Unavailable TREY SHAW Unavailable [address] + [place] [address] UE Unavailable Unavailable Unavailable TREY SHAW Unavailable [address] + [place] [address] UE Unavailable Unavailable Unavailable TREY SHAW Unavailable [address] + [place] [address] UE Unavailable Unavailable Unavailable TREY SHAW Unavailable [address] + [place] [address] Care Team Providers Name Role Phone Simone Grey Primary Care Unavailable Darline Penaloza Admitting Unavailable Krishna Del Castillo Attending Unavailable Mike Rodrigues Consulting Unavailable Trudy Ordaz Attending Unavailable Simone Grey Referring Unavailable Simone Grey Primary Care Unavailable Yisel White Attending Unavailable Oleghe, Efewongbe Attending Unavailable Que Simone Referring Unavailable [place], Simone Primary Care Unavailable Oleghe, Efewongbe Attending Unavailable Oleghe, Efewongbe Primary Care Unavailable Oleghe, Efewongbe Referring Unavailable Francis Thomason FROZEN YOGURT MAKER-C Attending Unavailable Oleghe, Efewongbe Referring Unavailable ROGER JOYCE Attending Unavailable ROGER JOYCE Referring Unavailable Oleghe, Efewongbe Primary Care Unavailable Oleghe, Efewongbe Primary Care Unavailable Jopperi, Krishna Admitting Unavailable Jopperi, Krishna Attending Unavailable Jopperi, Krishna Admitting Unavailable Oleghe, Efewongbe Primary Care Unavailable Jopperi, Krishna Consulting Unavailable Jopperi, Krishna Attending Unavailable Yisel White Attending Unavailable KETAN ERAZO Admitting Unavailable UZMA HDZ () Attending Unavailable PROBLEMS PROBLEMS DATE TYPE CONDITION / CODE ATTENDING STATUS SOURCE 05/19/2018 Unknown Z79.899 - Other ROGER JOYCE Active [facility] skilled nursing (current) Community drug therapy / Hospital Z79.899(ICD-10) Repository 05/19/2018 Unknown R53.83 - Other ROGER JOYCE Active [facility] fatigue / Community R53.83(ICD-10) Hospital Repository 10/14/2017 Unknown R10.9 - Unspecified Oleghe, Active [place] abdominal pain / [facility] R10.9(ICD-10) Hospital Repository 07/05/2017 Unknown E11.9 - Type 2 Oleghe, Active [place] diabetes mellitus [facility] without Hospital complications / Repository E11.9(ICD-10) 07/05/2017 Unknown E78.5 - Oleghe, Active [facility] Hyperlipidemia, [facility] unspecified / Hospital E78.5(ICD-10) Repository 07/05/2017 Unknown Z00.00 - Encounter Oleghe, Active [place] for general adult [facility] without abnormal Repository findings / Z00.00(ICD-10) 07/05/2017 Unknown G89.29 - Other Oleghe, Active [facility] chronic pain / [facility] G89.29(ICD-10) Hospital Repository 06/24/2017 Active Acute cystitis UZMA HDZ Active [facility] without hematuria / ANYAM () Other [facility] N30.00(ICD-10) Repository 06/24/2017 Active Dehydration / LAURA, D Active [facility] E86.0(ICD-10) ROBIN () Other [place] Repository 06/24/2017 Active Other specified LAURA, D Active [facility] abnormal findings ROBIN () Other [place] of blood chemistry Repository / R79.89(ICD-10) 06/24/2017 Active Hyperglycemia, LAURA, D Active [facility] unspecified / NAZEM () Other [place] R73.9(ICD-10) Repository 06/24/2017 Active Essential (primary) LAURA, [facility] Active [facility] hypertension / ROBIN () Other [place] I10(ICD-10) Repository 06/21/2017 Active Epigastric pain / LAURA, D Active [facility] R10.13(ICD-10) ROBIN () Other [place] Repository 06/21/2017 Active Type 2 diabetes LAURA [facility] Active [facility] mellitus with NANAPOLEON () Other [place] hyperglycemia / Repository E11.65(ICD-10) 06/21/2017 Active [facility] (current) LAURA, D Active [facility] use of insulin / ROBIN () Other [place] Z79.4(ICD-10) Repository 06/21/2017 Active Upper abdominal LAURA, D Active [facility] pain, unspecified / NAWILLIAMM () Other [place] R10.10(ICD-10) Repository 06/21/2017 Active Orthostatic LAURA, D Active [facility] hypotension / NAWILLIAMM () Other [place] I95.1(ICD-10) Repository 06/21/2017 Active Dizziness and LAURA, D Active [facility] giddiness / ROBIN () Other [place] R42(ICD-10) Repository PROCEDURES PROCEDURES No Procedure Records FoundRESULTS RESULTS EMERGENCY DEPARTMENT Observed: 05/19/2018 Status: F Source: [place] SUMMARY 11:54 PM [facility] [place] [facility] Medical Records Department [address] [place] [address] Emergency Department Summary 05/19/18 1511 MR#: [id number] Acct: [id number] Name: YANCY SHAW #: [id number] : 1965 52 From: Trey Darling MD PCP: Trudy Ordaz MD Status: DIS TANYA - ER Visit Summary Date of Service: 05/19/18 Chief Complaint: Elevated blood sugar History of Present Illness: The patient is a 52 F she has been off her insulin for approximately 1 year when her daughter of a drug overdose March in 2016. She states she is not suicidal but depressed. She is taking her bipolar medications. She states she is peeing frequently but denies dysuria. She denies any abdominal pain, vomiting or diarrhea. No fever. She had outpatient labs done by her psychiatrist who noted to have extremely high blood sugar and send her to the emergency department. Physical Examination: Middle-aged female. Currently no acute distress. Vital signs are stable and afebrile. H EENT exam unremarkable. Neck nontender. Lungs clear to auscultation bilaterally. 115. No murmur. Moving all 4 extremities. Calves nontender. No edema. Neurologically she is awake and alert with no focal motor deficits. Test Results: CBC normal white count of 6. Hemoglobin 13. Electrolytes sodium 125. Gap of 9 BUN of 27 creatinine 1.38. Blood sugar is 911. Serum ketones are negative. Emergency Department Course and Treatment: Patient treated with 2 L normal saline was started on insulin drip. Patient is doing well on repeat exam at 16:22. Treatment Plan: I spoke to the hospitalist will be down and evaluate the patient for admission. He may choose insulin boluses versus a drip to allow the patient to go to a different level of care. I will leave that to his discretion. Disposition: Admission Impression: Acute severe hyperglycemia secondary to medical noncompliance History of insulin dependent diabetes This note was generated with Hadapt dictation software. It may contain incorrect words, spelling, and punctuation that were not noted in review of the chart prior to signing ED Disposition - Plan for ED Patient: Chief Complaint: Hyperglycemia Referrals: Trudy Ordaz MD [Primary Care Provider] - What to do if you have Problems For any increased pain, shortness of breath, bleeding, nausea or vomiting, chest pain, or any unexpected problems, contact your Primary Care Provider. Call [facility] ([phone]) or report to the closest Emergency Room. Call 911 if necessary. 05/19/18 4154 <Electronically signed by Trey Darling MD> Date Trey Darling MD Cosigner Signature (If Indicated): Date CC: Trudy Ordaz MD BEDSIDE GLUCOSE Collected: 05/19/2018 Status: F Source: [place] 8:50 PM [facility] [place] TYPE CODE TESTS RESULT OUT OF REFERENCE UNITS RANGE LAB L501.080 70-110 mg/dL High BEDSIDE GLU 146 Result Comment: MANAGEMENT OF PATIENT CARE PER NURSING PROTOCOL Performed By: #### L501.080 #### [facility] Point of Care [address] [place] [address] BEDSIDE GLUCOSE Collected: 05/19/2018 Status: F Source: [place] 6:15 PM [facility] [place] TYPE CODE TESTS RESULT OUT OF REFERENCE UNITS RANGE LAB L501.080 70-110 mg/dL High BEDSIDE GLU 280 Result Comment: MANAGEMENT OF PATIENT CARE PER NURSING PROTOCOL Performed By: #### L501.080 #### [facility] Point of Care [address] [place] [address] HISTORY AND PHYSICAL Observed: 05/19/2018 Status: F Source: [place] EXAM 5:33 PM [facility] [place] [facility] Medical Records Department [address] [place] [address] History and Physical 05/19/18 1652 MR#: [id number] Acct: [id number] Name: YANCY SHAW Adali Rep #: [id number] : 1965 52 From: Asif LI PCP: Trudy Ordaz MD Status: ADM TANYA Y Location: MS3 [id number] <Asif Johnson - Last Filed: 05/19/18 16:52> Problem List (1) Hyperglycemia Status: Acute (2) HTN (hypertension) Status: Chronic (3) CKD (chronic kidney disease) Status: Chronic (4) Hyperlipidemia Status: Chronic (5) Type 2 diabetes mellitus Status: Chronic (6) Depression with anxiety Status: Chronic History of Present Illness Date of Admission: 05/19/18 Chief Complaint: hyperglycemia The patient is a 52 year old F with pmhx of DMt2, bipolar disorder, htn, hld, ckd, who presents to the er for hyperglycemia, sent by her psychiatrist. She had routine labs drawn today in preparation for initiation of lithium therapy. She is being weaned off of seroquel and zoloft towards this too. She was called and told to come to the ER as her blood sugar was very high. In the ER it was >900. She states she is feeling otherwise her usual self. No respiratory complaints or confusion. She does admit to polyuria and polydipsia. She used to take farxiga, mealtime insulin, and long acting insulin. She stopped about 1 year ago when her daughter - after rehab relapsed and from overdose complications. She became tearful when discussing this, but is otherwise pleasant. She states she just lost interest in caring for herself. She denies intentionally trying to hurt herself or having suicidal thoughts. [] Past Medical History Past Medical History (Chronic Problems): Chronic Problems (Last Updated 05/19/18 @ 17:29 by Krishna Del Castillo DO) Abdominal pain (Chronic) Hypokalemia (Chronic) Hypomagnesemia (Chronic) Diabetes (Chronic) Anxiety (Chronic) Depression with anxiety (Chronic) Type 2 diabetes mellitus (Chronic) Hyperlipidemia (Chronic) HTN (hypertension) (Chronic) CKD (chronic kidney disease) (Chronic) Medical History: Medical History (Last Reviewed 10/14/17 @ 15:37 by Justine Swan) Back problem M53.9 Bladder/UTI Breast lump N63.0 Frequent headaches R51 GERD (gastroesophageal reflux disease) K21.9 H/O emotional problems F48.9 Hives L50.9 Kidney stones N20.0 Pnuemonia Polycystic ovaries E28.2 Seasonal allergies J30.2 Vision problems H54.7 Vitamin defciency HTN (hypertension) I10 Allergies metformin Allergy (Severe, Verified 05/19/18 14:52) Nausea aspartame Allergy (Verified 05/19/18 14:52) Swelling latex Allergy (Verified 05/19/18 14:52) Unknown Penicillins Allergy (Verified 05/19/18 14:52) Laryngospasms Home Medications: Ambulatory Orders Medication Instructions Recorded Surgical History: Surgical History (Last Reviewed 10/14/17 @ 15:37 by Justine Swan) History of section Z98.891 History of cholecystectomy Z98.890, Z90.49 Surgical History: - - colonoscopy, egd, explorotory lap Psychiatric History: 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 Lives: Spouse/ Significant Other Smoking Status: Never smoker Tobacco Use: Non-smoker Alcohol: Occasional - *Family History Maternal History Items: Unknown Paternal History Items: Unknown Review of Systems Constitutional: Denies: Chills, Fever, Weight Change HEENT: Denies: Head Aches, Sinus Congestion, Sinus Drainage Cardiovascular: Denies: Chest Pain, Palpitations Respiratory: Denies: Cough, Shortness of breath at rest, Sputum production Gastrointestinal: Denies: Abdominal Pain, Nausea, Vomiting Genitourinary: Denies: Dysuria Musculoskeletal: Denies: Joint Pain, Joint Tenderness Skin: Denies: Rash, Wounds Neurological: Denies: Numbness, Tingling, Focal weakness Psychiatric: Denies: Anxiety, Depression, Homicidal Ideations, Suicidal Ideations Endocrine: Reports: Polydipsia, Polyuria Hematologic/ Lymphatic: Denies: Easy Bruising, Easy Bleeding VTE Information - Inpt Only VTE Present on Admission: No VTE Mechan Device Prophylaxis: None VTE Pharm Prophylaxis ordered?: Yes Patient Problems: Active and Suspected Problems (Last Updated 05/19/18 @ 17:29 by Krishna Del Castillo DO) Hyperglycemia (Acute) Hyperglycemia due to type 2 diabetes mellitus (Acute) - Physical Exam General: Alert, Oriented x3, Cooperative HEENT: Atraumatic, PERRLA, EOMI, Normocephalic Neck: Supple, No JVD, Negative Carotid Bruits Lungs: Clear to auscultation, Normal air movement Cardiovascular: Regular rate, No murmurs Abdomen: Bowel Sounds Present, Soft, Non Tender, Obese Extremities: No edema, Capillary Refill Less than 3 Seconds Skin: No rashes, No breakdown Musculoskeletal: No Tenderness to Palpation of Joints or Extremities Neurological: Cranial nerves II-XII grossly intact Psych/Mental Status: Normal Affect, Appropriate Vital Signs Temp Pulse Resp BP Pulse Ox 96.8 F L 102 H 18 137/88 H 96 05/19/18 14:53 05/19/18 15:46 05/19/18 15:46 05/19/18 15:46 05/19/18 15:46 Oxygen Delivery Method Room Air Weight: 201 lb 0.985 oz Body Mass Index (BMI) 36.8 Finger Stick Blood Glucose 495 Laboratory Tests Past 24 Hrs POC Glucose POC Glucose 495 H* > 500 H* Assessment/Plan All Active Problems (Last Updated 05/19/18 @ 17:29 by Krishna Del Castillo DO) Toxic encephalopathy (Acute) Suicide attempt (Acute) Hyperosmolar non-ketotic state in patient with type 2 diabetes mellitus (Acute) ZOEY (acute kidney injury) (Acute) Aspiration pneumonia (Acute) Bilateral tinnitus (Acute) OAB (overactive bladder) (Acute) Hyperglycemia (Acute) Hyperglycemia due to type 2 diabetes mellitus (Acute) 1. DMt2 with severe hyperglycemia 2/2 noncompliance - no evidence of DKA. Bolus insulin. Improved from 911 to 495 already in the ER. Continue bolus. Pt used to be on farxiga, lantus, mealtime insulin. Needs new monitor/test strips, etc, at dc. 2. Bipolar disorder - plan is to transition to lithium, will continue prior meds. May transition to lithium when sodium stabilizes. 3. Pseudohyponatremia - 2/2 above. Trend. 4. Suspect CKD III - dc NSAIDS. 5. HTN - intermittently takes her BP meds as well. Trend. DC HCTZ. 6. HLD - statin 7. GERD - on ppi bid. DVT ppx: heparin DC planning: This will depend on how quickly her sugars normalize. I do not suspect any homegoing needs. No debility. Needs follow up with PCP, Psychiatry. This patient was seen by Asif Johnson PA-C under the supervision of Doctor Magdalene. <Krishna Del Castillo - Last Filed: 05/19/18 17:32> Problem List (1) Hyperglycemia due to type 2 diabetes mellitus Status: Acute Qualifiers: Diabetes mellitus technician terminal and repeater insulin use: without skilled nursing use Qualified Code(s): E11.65 - Type 2 diabetes mellitus with hyperglycemia History of Present Illness Chief Complaint: hyperglycemia The patient is a 52 year old F presents with hyperglycemia. Patient was having some screening labs before being started on lithium and was noted to have blood sugar in the 800s. Patient was directed to the emergency room and blood sugar is actually 911. Patient stopped taking insulin about a year ago after daughter overdosed. Patient recognizes that that was not a proper decision to make but just stopped taking it simply. Patient initially were written for insulin drip but patient did receive IV fluids and did improve to 450. Patient will receive 20 units of NovoLog in the emerge C room. Patient be admitted to the hospital for further monitoring of sugar control. [] Past Medical History Medical History: Medical History (Last Updated 05/19/18 @ 17:29 by Krishna Del Castillo DO) Eczema L30.9 Back problem M53.9 Bladder/UTI Breast lump N63.0 Frequent headaches R51 GERD (gastroesophageal reflux disease) K21.9 H/O emotional problems F48.9 Hives L50.9 Kidney stones N20.0 Pnuemonia Polycystic ovaries E28.2 Seasonal allergies J30.2 Vision problems H54.7 Vitamin defciency HTN (hypertension) I10 Allergies metformin Allergy (Severe, Verified 05/19/18 14:52) Nausea aspartame Allergy (Verified 05/19/18 14:52) Swelling latex Allergy (Verified 05/19/18 14:52) Unknown Penicillins Allergy (Verified 05/19/18 14:52) Laryngospasms Surgical History: Surgical History (Last Reviewed 05/19/18 @ 17:28 by Krishna Del Castillo DO) History of section Z98.891 History of cholecystectomy Z98.890, Z90.49 Psychiatric History: 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 Patient states that she has tried numerous therapies without relief.. Denies: Wounds Neurological: Denies: Focal weakness, Numbness, Tingling Psychiatric: Denies: Anxiety, Depression, Homicidal Ideations, Suicidal Ideations Endocrine: Reports: Polyuria Hematologic/ Lymphatic: Denies: Easy Bruising, Easy Bleeding VTE Information - Inpt Only VTE Present on Admission: No VTE Mechan Device Prophylaxis: None VTE Pharm Prophylaxis ordered?: Yes - Physical Exam General: Alert, Cooperative HEENT: Atraumatic, Normocephalic Neck: No Nodes, Thyroid Normal Size and Texture Lungs: Clear to auscultation, Normal air movement, No rhonchi, No wheeze Cardiovascular: Regular rate, Regular Rhythm, Normal S1, Normal S2, No murmurs Abdomen: Bowel Sounds Present, Soft, Non Tender, Non-Distended Extremities: No edema, No Calf Tenderness Skin: - - eczema of arms and hands. Musculoskeletal: No Tenderness to Palpation of Joints or Extremities, No Muscle Wasting Psych/Mental Status: Normal Affect, Appropriate Vital Signs Temp Pulse Resp BP Pulse Ox 36.0 C L 102 H 18 137/88 H 96 05/19/18 14:53 05/19/18 15:46 05/19/18 15:46 05/19/18 15:46 05/19/18 15:46 Oxygen Delivery Method Room Air Weight: 91.2 kg Body Mass Index (BMI) 36.8 Finger Stick Blood Glucose 495 Laboratory Tests Past 24 Hrs POC Glucose POC Glucose 495 H* > 500 H* Assessment/Plan Patient seen and examined independently. Data reviewed. I agree with the above note by the physician freezer assistant. 1. Diabetes mellitus type 2, uncontrolled with severe hyperglycemia * No clinical evidence of hyperosmolar non-ketosis nor DKA at this time * No indication for insulin drip * Patient will be on bolus insulins as well as started on Lantus * Patient recognizes that she needs treatment and is willing to move forward with continuing insulin therapy * If blood sugars improved and are reasonable, the expectation was for the patient be able to be discharged with an insulin regimen. * I will be started the patient on 30 units of Lantus at night and then 8 units with meals 2. Hyponatremia * Likely pseudohyponatremia due to the severe hyperglycemia * Follow-up lab work in the morning 3. Bipolar disorder * Patient to follow-up with psychiatry in regards to initiation of lithium Code Visit OBSV E AND M: [id number] Initial observation care L2 05/19/18 1705 <Electronically signed by Asif Johnson PA> Date Asif LI 05/19/18 1733<Electronically signed by Krishna Del Castillo DO> Cosigner Signature: Date (if applicable) Krishna Del Castillo DO CC: JEN Johnson; Trudy Ordaz MD; Krishna Del Castillo DO Signed BEDSIDE GLUCOSE Collected: 05/19/2018 Status: F Source: [place] 4:47 PM [facility] [place] TYPE CODE TESTS RESULT OUT OF REFERENCE UNITS RANGE LAB L501.080 70-110 mg/dL High alert BEDSIDE GLU 495 Result Comment: MANAGEMENT OF PATIENT CARE PER NURSING PROTOCOL Performed By: #### L501.080 #### [facility] Point of Care [address] [place], [place] [id number] BEDSIDE GLUCOSE Collected: 05/19/2018 Status: F Source: [place] 3:25 PM [facility] [place] TYPE CODE TESTS RESULT OUT OF REFERENCE UNITS RANGE LAB L501.080 70-110 mg/dL High alert BEDSIDE GLU > 500 Result Comment: Dr Orders Followed MANAGEMENT OF PATIENT CARE PER NURSING PROTOCOL Performed By: #### L501.080 #### [facility] Point of Care [address] [place] [address] CBC W/DIFF, AUTOMATED Collected: 05/19/2018 Status: F Source: [place] 3:25 PM [facility] [place] TYPE CODE TESTS RESULT OUT OF RANGE REFERENCE UNITS LAB L100.1000 4.4-11.0 K/mm3 Normal WBC 6.9 LAB L100.1200 4.2-5.4 M/mm3 Normal RBC 4.43 LAB L100.1300 12.0-15.0 g/dl Normal HGB 13.2 LAB L100.1400 37-47 % Normal HCT 39.4 LAB L100.1500 81-99 fL Normal MCV 88.9 LAB L100.1600 27.0-32.0 pg Normal MCH 29.8 LAB L100.1700 32-36 g/gl Normal MCHC 33.5 LAB L100.1810 11.6-14.6 % Normal RDW CV 13.2 LAB L100.1820 35.1-43.9 fl Normal RDW SD 41.9 LAB L100.1900 150-450 K/mm3 Normal PLT 194 LAB L100.2000 6.2-12.0 fl Normal MPV 9.4 LAB L100.2100 47-70 % High NEUT% 74.6 LAB L100.2200 19-41 % Low LY% 18.5 LAB L100.2300 0-10 % Normal MONO% 4.2 LAB L100.2400 0-5 % Normal EO% 1.9 LAB L100.2500 0-1 % Normal BASO% 0.1 LAB L100.2550 0.0-0.9 % Normal IM GRAN % 0.700 Result Comment: IG% - Immature Granulocytes (promyelocytes, myelocytes and metamyelocytes) > 1% indicates that a LEFT SHIFT is Present. LAB L100.2620 2.0-7.7 X10 3/uL Normal Absolute Neut 5.1 LAB L100.2720 0.83-4.51 X10 3/ul Normal Absolute Lymph 1.27 Performed By: #### L100.0100 #### [facility] [address] [facility] [place], [place], [id number] BASIC METABOLIC Collected: 05/19/2018 Status: F Source: [place] PROFILE (BMP) 3:25 PM [facility] [place] TYPE CODE TESTS RESULT OUT OF RANGE REFERENCE UNITS LAB L501.0100 74-106 mg/dL High alert GLU 911 Result Comment: Critical Result(s) Called at: 16:10:40 05/19/2018 by: Rosa DELGADO Glucose result greater than or equal to 200 mg/dL suggests DIABETES MELLITUS per A.D.A. criteria. Please note revised GLUCOSE reference range effective 2017. LAB L501.1000 7-18 mg/dL High BUN 27 LAB L501.1100 0.55-1.02 mg/dL High CREAT,SERUM 1.38 Result Comment: The validity of the calculated GFR AND GFRAA in patients over 70 years has not been determined. Clinical correlation is essential. LAB L501.1110 >60 mL/min Low EST GFR 42 Result Comment: Non- GFR Calc LAB L501.1115 >60 mL/min Low EST GFR - AA 51 Result Comment: GFR Calc LAB L501.1255 ml/min Normal Estimated CRCL 36.86 LAB L501.1300 10-20 RATIO Normal BUN/CRE 19.6 LAB L501.2200 8.5-10 mg/dL Normal .1 CA 8.7 LAB L501.5300 136-14 mmol/L Low 5 NA 125 LAB L501.5600 3.5-5. mmol/L Normal 1 K 3.8 LAB L501.5900 98-107 mmol/L Low CL 89 LAB L501.6100 21.0-3 mmol/L Normal 2.0 CO2 27.0 LAB L501.6200 5-15 Normal GAP 9 Performed By: #### L500.2500 #### [facility] [address] [place], [address] ACETONE SERUM Collected: 05/19/2018 Status: F Source: [place] 3:25 PM [facility] [place] TYPE CODE TESTS RESULT OUT OF RANGE REFERENCE UNITS LAB L501.6900 NEG Normal ACETONE SERUM NEGATIVE Performed By: #### L501.6900 #### [facility] [address] [place], [address] HEMOGLOBIN A1C Collected: 05/19/2018 Status: F Source: [place] 3:25 PM [facility] [place] TYPE CODE TESTS RESULT OUT OF RANGE REFERENCE UNITS LAB L501.9985 4.2-6.3 % High HGB A1C 14.3 Performed By: #### L501.9985 #### [facility] [address] [facility] [place], [address] MICROALBUMIN,RANDOM URINE Collected: Status: F Source: [place] 05/19/2018 3:20 PM [facility] [place] Order Comment: Comments: use urine in lab from TYPE CODE TESTS RESULT OUT OF RANGE REFERENCE UNITS LAB L502.0500 NO RANGE EST. mg/L Normal 147.0 MICROALBUMIN ,UR Performed By: #### L502.0500 #### [facility] [address] [facility] [address] [place], [place], [address] CBC W/DIFF, AUTOMATED Collected: 05/19/2018 Status: F Source: [place] 10:53 AM [facility] [place] TYPE CODE TESTS RESULT OUT OF RANGE REFERENCE UNITS LAB L100.1000 4.4-11.0 K/mm3 Normal WBC 7.6 LAB L100.1200 4.2-5.4 M/mm3 Normal RBC 4.48 LAB L100.1300 12.0-15.0 g/dl Normal HGB 13.5 LAB L100.1400 37-47 % Normal HCT 39.8 LAB L100.1500 81-99 fL Normal MCV 88.8 LAB L100.1600 27.0-32.0 pg Normal MCH 30.1 LAB L100.1700 32-36 g/gl Normal MCHC 33.9 LAB L100.1810 11.6-14.6 % Normal RDW CV 13.3 LAB L100.1820 35.1-43.9 fl Normal RDW SD 40.9 LAB L100.1900 150-450 K/mm3 Normal PLT 236 LAB L100.2000 6.2-12.0 fl Normal MPV 10.3 LAB L100.2100 47-70 % Normal NEUT% 69.1 LAB L100.2200 19-41 % Normal LY% 21.2 LAB L100.2300 0-10 % Normal MONO% 5.5 LAB L100.2400 0-5 % Normal EO% 3.2 LAB L100.2500 0-1 % Normal BASO% 0.1 LAB L100.2550 0.0-0.9 % Normal IM GRAN % 0.900 Result Comment: IG% - Immature Granulocytes (promyelocytes, myelocytes and metamyelocytes) > 1% indicates that a LEFT SHIFT is Present. LAB L100.2620 2.0-7.7 X10 3/uL Normal Absolute Neut 5.3 LAB L100.2720 0.83-4.51 X10 3/ul Normal Absolute Lymph 1.61 Performed By: #### L100.0100 #### [facility] [address] [facility] [place], [address] BASIC METABOLIC Collected: 05/19/2018 Status: F Source: [place] PROFILE (BMP) 10:53 AM [facility] [place] TYPE CODE TESTS RESULT OUT OF RANGE REFERENCE UNITS LAB L501.0100 74-106 mg/dL High alert GLU 955 Result Comment: Critical Result(s) Called at: 13:42:20 05/19/2018 by: Blanca Ga to [facility] Glucose result greater than or equal to 200 mg/dL suggests DIABETES MELLITUS per A.D.A. criteria. Please note revised GLUCOSE reference range effective 2017. LAB L501.1000 7-18 mg/dL High BUN 31 LAB L501.1100 0.55-1.02 mg/dL High CREAT,SERUM 1.31 Result Comment: The validity of the calculated GFR AND GFRAA in patients over 70 years has not been determined. Clinical correlation is essential. LAB L501.1110 >60 mL/min Low EST GFR 45 Result Comment: Non- GFR Calc LAB L501.1115 >60 mL/min Low EST GFR - AA 54 Result Comment: GFR Calc LAB L501.1300 10-20 RATIO High BUN/CRE 23.7 LAB L501.2200 8.5-10.1 mg/dL CA Normal 8.7 LAB L501.5300 136-145 mmol/L Low NA 128 LAB L501.5600 3.5-5.1 mmol/L K Normal 3.5 LAB L501.5900 98-107 mmol/L Low CL 92 LAB L501.6100 21.0-32.0 mmol/L Normal CO2 27.0 LAB L501.6200 5-15 Normal GAP 9 Performed By: #### L500.2500, L501.9520 #### [facility] [address] [place], [place], [address] THYROID STIM HORMONE Collected: 05/19/2018 Status: F Source: [place] (TSH) 10:53 AM [facility] [place] TYPE CODE TESTS RESULT OUT OF RANGE REFERENCE UNITS LAB L501.9520 0.358-3.74 uIU/mL Normal TSH 1.92 Performed By: #### L500.2500, L501.9520 #### [facility] [address] [place], [address] CREATININE FINGERSTICK Collected: 11/05/2017 Status: F Source: [place] 5:51 PM [facility] [place] TYPE CODE TESTS RESULT OUT OF REFERENCE UNITS RANGE LAB L9100.0210 0.55-1.02 mg/dL High CREATININE WB 1.4 LAB L9100.0220 >60 mL/min Low EGFR WB 43.0000 Performed By: #### L9100.0200 #### [facility] Point of Care [address] [place] [address] ABDOMEN/PELVIS WITH Observed: 11/05/2017 Status: F Source: [place] CONTRAST 5:41 PM [facility] [place] [facility] Imaging Services [address] [place] [address] Abdomen/Pelvis WITH Contrast MR#: [id number] Acct: [id number] Name: YANCY SHAW Adali Rep #: [id number] : 1965 F 52 From: Froylan Jimenez DO PCP: Trudy Ordaz MD Status: REG CLI Study: Abdomen/Pelvis WITH Contrast Date of Exam: 11/05/17 Exam# [id number] Ordering Dr: Trudy Ordaz MD STUDY: CT ABDOMEN AND PELVIS WITH CONTRAST REASON FOR EXAM: Female, 52 years old. Mid abdominal pain RADIATION DOSAGE (If Supplied By Facility): CTDIvol = ( 12.68 ) mGy, DLP = ( 1028.83 ) mGycm TECHNIQUE: Transaxial images were obtained from the dome of the diaphragm to the symphysis pubis without oral contrast. 100ml ml of Isovue 300 contrast was administered. Sagittal and coronal images were reconstructed. Individualized dose optimization techniques were used for this CT. COMPARISON: September 10, 2015 FINDINGS: The visualized lung bases are unremarkable. The visualized portions of the heart are within normal limits. Normal liver. Status post cholecystectomy. Minimal prominence of the biliary system. Normal spleen. Normal pancreas. Normal bilateral adrenal glands. Normal right kidney. Normal left kidney. Normal visualized stomach. Normal small intestine. Normal colon. The appendix is visualized and appears normal. Calcified abdominal aorta. Normal inferior vena cava. Normal retroperitoneum. Stable mesenteric nodes are again noted. Normal urinary bladder. Normal uterus. Normal abdominal wall. Grade 1 spondylolisthesis at L4-5 with narrowed disc space, new since the previous study. CT/Abdomen/Pelvis WITH Contrast IMPRESSION: No acute pathology of the abdomen and pelvis. New grade 1 spondylolisthesis at L4-5. Electronically Signed: Froylan Jimenez DO at 22:58 EDT Tel [phone], Service support , CC: Trudy Ordaz MD Smoke Eater: Signed INTERNAL MEDICINE Observed: 10/15/2017 Status: F Source: [place] OFFICE VISIT 1:11 PM [facility] [address] [place] [address] [place] [address] OFFICE VISIT Date of Service: 10/14/17 MR#: [id number] Acct: [id number] Name: YANCY SHAW Rep #: [id number] : 1965 Provider: Trudy Ordaz MD Age/Sex: 52/F Location: [facility] Status: Signed Intake Vital Signs10/14/17 Height 5 ft 2 in 10/14/17 Weight: 202 lb 10/14/17 Body Mass Index (BMI) 36.9 10/14/17 Blood Pressure 157/88 Intake Visit Reasons: Ringing in the ears Chief Complaint: Ringing in ears Is patient in pain?: Yes (URQ) Pain scale (1-10): 8 Allergies metformin Allergy (Severe, Verified 10/14/17 15:29) Nausea latex Allergy (Verified 10/14/17 15:28) Unknown Penicillins Allergy (Verified 10/14/17 15:28) Laryngospasms Medications Aspirin [Aspirin, Baby] 81 mg PO DAILY@0800 09/10/15 [History Confirmed 10/14/17] Cholecalciferol (Vitamin D3) [Decara] 50,000 unit PO WE 09/10/15 [History Confirmed 10/14/17] Folic Acid 1 mg PO DAILY@0800 09/10/15 [History Confirmed 10/14/17] Insulin Aspart [Novolog Flexpen] 20 units SC TIDCM 09/10/15 [History Confirmed 10/14/17] Insulin Glargine,Hum.rec.anlog [Lantus] 31 unit SQ QHS 09/10/15 [History Confirmed 10/14/17] Sertraline HCl [Zoloft] 50 mg PO DAILY 09/10/15 [History Confirmed 10/14/17] proMETHazine tablet [Phenergan tablet] 25 mg PO Q4H PRN PRN #20 tab 09/13/15 [Rx Confirmed 10/14/17] atorvastatin 40 mg tablet 40 mg PO QHS #90 tab 07/05/17 [Rx Confirmed 10/14/17] dapagliflozin 5 mg tablet 5 mg PO QDAY 60 Days #60 tab 07/05/17 [Rx Confirmed 10/14/17] prazosin 1 mg capsule PO 30 Days #30 07/05/17 [History Confirmed 10/14/17] zolpidem 10 mg tablet PO 7 Days #7 07/05/17 [History Confirmed 07/05/17] ibuprofen 800 mg tablet 800 mg PO Q8H PRN #90 tab 09/20/17 [Rx Confirmed 10/14/17] oxybutynin chloride 5 mg tablet 5 mg PO TID #90 tab 09/20/17 [Rx Confirmed 10/14/17] tizanidine 4 mg tablet 8 mg PO QDAY tab 09/20/17 [History Confirmed 10/14/17] hydrochlorothiazide 25 mg tablet 25 mg PO QAM #90 tab 10/14/17 [Rx Confirmed 10/14/17] hydroxyzine HCl 25 mg tablet 25 mg PO TID-QID PRN 10/14/17 [History Confirmed 10/14/17] lisinopril 40 mg tablet 40 mg PO QDAY #90 tab 10/14/17 [Rx Confirmed 10/14/17] pantoprazole 40 mg tablet,delayed release 40 mg PO QAM 10/14/17 [History Confirmed 10/14/17] trazodone 50 mg tablet 50 mg PO QHS PRN 10/14/17 [History Confirmed 10/14/17] [facility] Medical History Back problem (Acute) Bladder/UTI (Acute) Breast lump (Acute) Frequent headaches (Acute) GERD (gastroesophageal reflux disease) (Acute) H/O emotional problems (Acute) Hives (Acute) Kidney stones (Acute) Pnuemonia (Acute) Polycystic ovaries (Acute) Seasonal allergies (Acute) Vision problems (Acute) Vitamin defciency (Acute) HTN (hypertension) (Chronic) Surgical History History of section (Acute) History of cholecystectomy (Acute) Social History Smoking Status: Never smoker alcohol intake: never substance use type: does not use what type of physical activity do you participate in: walking frequency: daily duration: 30-45 minutes/day HPI HPI Chief Complaint: Ringing in ears Details: YANCY SHAW, is a 52yo F who presents to the office today due to complaints of ringing in her ear. Onset was about 5 weeks ago. Said to occur in both ears with associated itching. She denies significant nasal congestion but attests to increased cough. she feels well other peterson and denies nausea, vomiting, headache or blurring of her vision. 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 Prior to discovery, she however states that she has had significant abdominal pain typically when she lays on her tummy. There has been no change in her bowel habit. ROS Const Constitutional: No chills, fatigue, fever(s), frequent falls, malaise, weakness, sleep problems or change in appetite Eyes Eyes: No blurry vision, change in vision, double vision, discharge or visual disturbances ENT ENT: Positive for tinnitus; no abnormal hearing, ear pain, ear pressure or dizziness/vertigo Resp Respiratory: Positive for cough; no shortness of breath or wheezing Cardio Cardiology: No chest pain at rest, chest pain with exertion, shortness of breath, dyspnea on exertion, generalized swelling, irregular heart rhythm, lightheadedness, orthopnea, fast heart rate or palpitations Gastro GI: Positive for abdominal pain; no change in bowel habits, constipation, diarrhea, nausea/dyspepsia or vomiting Genitourinary-Female: No difficulty urinating, burning urination, painful urination, urinary incontinence, urinary frequency, urinary urgency, urinary hesitancy, urinary retention, Frequent nighttime urination/ nocturia, sexual problems, genital lesions, abnormal vaginal bleeding, pelvic pain, vaginal dryness, vaginal odor or Vaginal Itching Musc Musculoskeletal: No joint pain, back pain, joint swelling, limited range of motion, muscle weakness, numbness or tingling Skin Skin: Positive for itching; no change in skin color or wounds Breast Breast: No breast lump or breast pain Neuro Neurology: No frequent falls, weakness, abnormal hearing, numbness, tingling, unsteady gait/balance, dizziness, loss of vision, memory loss or visual disturbances Psych Psychiatric: No memory loss, No anxiety, No change in appetite, No depression, No Thoughts of harming yourself/Others Endo Endocrine: No fatigue, heat intolerance, increased thirst/drinking, increased hunger or increased urination Aller/Imm Allergy/Immunologic: Positive for itchy eyes; no wheezing or seasonal allergy symptoms Barak/Lymp Hematologic/Lymphatic: No easy bleeding, easy bruising or enlarged lymph nodes Exam Musc Musculoskeletal: No muscle weakness Assessment AND Plan 1. Bilateral tinnitus H93.13 Plan Ongoing for about 5 weeks. associated with itchy eyes and ears as well as cough. No other concerning symptoms at this time. Multiple possibilities for Tinnitus. Will manage as a case of possible allergy induced. Flonase and antihistamine recommended. Follow up in 2 weeks. If no improvement, will work up further. 2. Abdominal pain R10.9 Plan Said to have been ongoing. 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 protruison noted. No obvious hernia. Midline protrusion possible Diastasis recti vs Hernia. However very tender. Abdominopelvic CT ordered. Follow up with results. This note was generated with Hadapt dictation software. It may contain incorrect words, spelling, and punctuation that were not noted in checking the note before signing. Orders Orders: Plan Detail Other Medications New: Discontinued: lisinopril-hydrochlorothiazide 20-25 mg Discontinu1 tab PO .daily Trudy Ordaz MD ed Reason: Order Changed Follow Up 2 Weeks Coding Level of Care Code Off vis,est,level 4 Diagnoses Bilateral tinnitus H93.13 Abdominal pain R10.9 10/15/17 1311 <Electronically signed by Trudy Ordaz MD> Date Trudy Ordaz MD Cosigner Signature: Date (if applicable) CC: EMERGENCY DEPARTMENT Observed: 09/24/2017 Status: F Source: [place] SUMMARY 8:12 AM [facility] [place] [facility] Medical Records Department [address] [place] [address] Emergency Department Summary 06/04/17 0048 MR#: [id number] Acct: [id number] Name: YANCY SHAW Rep #: [id number] : 1965 51 From: Edwina Lloyd MD PCP: Simone Grey MD Status: DIS IN - ER Visit Summary Date of Service: 06/04/17 Chief Complaint: Intentional overdose History of Present Illness: The patient is a 51 F who presents for intentional overdose. called 911 after patient took multiple medications, including 3 days worth of farxiga, lisinopril, tizanidine, oxybutynin, and 10 tabs of 1 mg Xanax. also reported she drink moonshine. Patient unable to provide history, and is not present to give any further information, including time of ingestions. 3 limited secondary to patient obtunded. Physical Examination: Vital signs: afebrile, mild hypotension, no hypoxia on room air General: well nourished, well developed, obese, response to noxious stimulation Skin: warm, dry, no rash, positive mild pallor HEENT: normocephalic and atraumatic; PERRL, EOMI, dry mucous membranes Cardiovascular: regular rate and rhythm without murmurs, no peripheral edema, 2+ pulses all distal extremities Respiratory: No increased work of breathing, lungs are clear to auscultation bilaterally, no rales, rhonchi or wheezing Abdominal: Abdomen is soft, I will diffuse tenderness with normoactive bowel sounds, no guarding or rebound, no masses MSK: Moves all extremities, no deformities, normal strength Neuro: Lethargic. No facial droop, moves all extremities Test Results: Abnormal Lab Results WBC 9.0 WBC RBC Hgb WBC RBC Hgb Hct MCV MCH MCHC RDW RDW Differential Emergency Department Course and Treatment: Blood sugar was checked and was read as high. She was given IV fluids. CBC showed no leukocytosis or anemia. Chemistry panel showed a sodium that was appropriately low for corrected blood sugar. Potassium 5.4. No anion gap. BUN and creatinine elevated. Urine was positive for infection. Troponin negative. Lactate normal. negative. Ketones negative. Alcohol was negative. ABG showed mild metabolic acidosis at 7.29. Tox positive for benzos. History included that patient had been drinking alcohol, but the alcohol level was negative. Patient had no anion gap that would suggest toxic alcohol ingestion such as ethylene glycol or methanol. Patient became much more responsive after initial fluid hydration and once IVs in Ngo were placed. Patient maintained her airway at all times and required no intubation or advanced airway maneuvers. She was started on IV insulin drip after blood sugar did not respond to IV fluids. Acetaminophen and salicylate levels are pending. Patient will require admission for further management of intentional overdose, hyperglycemia and acute renal failure. Critical care time 40 minutes, which includes coordination of care, emergent management of life-threatening conditions, consultations, treatment of hypoglycemia, overdose, acute renal insufficiency, altered mental status. Treatment Plan: [] Disposition: [] Impression: intentional OD; hyperglycemia; ARF, UTI This note was generated with Hadapt dictation software. It may contain incorrect words, spelling, and punctuation that were not noted in review of the chart prior to signing ED Disposition - Plan for ED Patient: Disposition: Acute Care Hospital [facility] Chief Complaint: Overdose What to do if you have Problems For any increased pain, shortness of breath, bleeding, nausea or vomiting, chest pain, or any unexpected problems, contact your Primary Care Provider. Call [facility] ([phone]) or report to the closest Emergency Room. Call 911 if necessary. 06/04/17 0057 <Electronically signed by Edwina Lloyd MD> Date Edwina Lloyd MD Cosigner Signature (If Indicated): Date CC: Simone Grey MD INTERNAL MEDICINE Observed: 07/08/2017 Status: F Source: [place] OFFICE VISIT 1:32 PM [facility] Internal Medicine [address] [address] [place] [address] OFFICE VISIT Date of Service: 07/05/17 MR#: [id number] Acct: [id number] Name: YANCY SHAW Rep #: [id number] : 1965 Provider: Trudy Ordaz MD Age/Sex: 51/F Location[place] [facility] [place] Status: Signed Intake Vital Signs07/05/17 Height 5 ft 2 in 07/05/17 Weight: 193 lb 4 oz 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 Accompanied by: None Is patient in pain?: Yes (lower back/hip) Pain scale (1-10): 7 Allergies latex Allergy (Verified 06/03/17 18:57) Unknown Penicillins Allergy (Verified 09/10/15 18:42) Laryngospasms Medications Aspirin [Aspirin, Baby] 81 mg PO DAILY@0800 09/10/15 [History Confirmed 09/10/15] Cholecalciferol (Vitamin D3) [Decara] 50,000 unit PO WE 09/10/15 [History Confirmed 09/11/15] Folic Acid 1 mg PO DAILY@0800 09/10/15 [History Confirmed 09/10/15] Insulin Aspart [Novolog Flexpen] 20 units SC TIDCM 09/10/15 [History Confirmed 09/10/15] Insulin Glargine,Hum.rec.anlog [Lantus] 31 unit SQ QHS 09/10/15 [History Confirmed 09/10/15] Oxybutynin [Ditropan] 5 mg PO TID 09/10/15 [History Confirmed 09/10/15] Sertraline HCl [Zoloft] 50 mg PO DAILY 09/10/15 [History Confirmed 09/10/15] Tizanidine HCl 8 mg PO 4X/DAY 09/10/15 [History Confirmed 09/10/15] Famotidine [Pepcid] 20 mg PO BID #60 tab 09/13/15 [Rx] ProMETHAzine [Phenergan] 25 mg PO Q4H PRN PRN #20 tab 09/13/15 [Rx] ALPRAZolam [Xanax] 1 mg PO TID PRN #0 06/05/17 [Rx Confirmed 09/11/15] Levofloxacin [Levaquin] 500 mg PO DAILY #4 tab 06/05/17 [Rx] atorvastatin 40 mg tablet 40 mg PO QHS #90 tab 07/05/17 [Rx Confirmed 07/05/17] dapagliflozin 5 mg tablet 5 mg PO QDAY 60 Days #60 tab 07/05/17 [Rx Confirmed 07/05/17] lisinopril 20 mg-hydrochlorothiazide 25 mg tablet 1 tab PO .daily #90 tab 07/05/17 [Rx Confirmed 07/05/17] oxycodone-acetaminophen 5 mg-325 mg tablet PO 3 Days #8 07/05/17 [History Confirmed 07/05/17] prazosin 1 mg capsule PO 30 Days #30 07/05/17 [History Confirmed 07/05/17] zolpidem 10 mg tablet PO 7 Days #7 07/05/17 [History Confirmed 07/05/17] PFSH Medical History Back problem (Acute) Bladder/UTI (Acute) Breast lump (Acute) Frequent headaches (Acute) GERD (gastroesophageal reflux disease) (Acute) H/O emotional problems (Acute) Hives (Acute) Kidney stones (Acute) Pnuemonia (Acute) Polycystic ovaries (Acute) Seasonal allergies (Acute) Vision problems (Acute) Vitamin defciency (Acute) HTN (hypertension) (Chronic) Surgical History History of section (Acute) History of cholecystectomy (Acute) Social History Smoking Status: Never smoker alcohol intake: never substance use type: does not use what type of physical activity do you participate in: walking frequency: daily duration: 30-45 minutes/day HPI EST CARE: Details: YANCY SHAW, is a 51yo F who presents to the office today to establish care. She has no acute complaints at this time. She had previously followed up with Dr. Marlys Grey at the [facility] until sometime in March when she was discharged from the practice due to a confrontation she had with the front office java developer official. She lost her daughter on the March and subsequently had a failed suicidal attempt. She was admitted to the [facility] after her attempt and was discharged on the 18 of June. She has done well since discharge and routinely follows up with her psychiatrist. She states that she has not had any blood work or mammogram done in years. She is also unsure of her Last A1C. She has a history of abnormal mammograms in the past with subsequent biopsies which were normal. She reports having being recommended yearly colonoscopies but does not know why. Last colonoscopy however was in 2011. She has a history of chronic low back and cervical pain and has been told she has nerve impingement. She denies any muscle weakness or bowel/bladder incontinence. She has a history of OAB but is stable on Oxybutinin. ROS Const Constitutional: Positive for sleep problems; no body ache, chills, fatigue, fever(s), weight change, change in appetite, snoring, excessive sweating or weakness Eyes Eyes: No blurry vision, eye pain or light sensitivity ENT ENT: Positive for neck pain; no abnormal hearing, ear pain, tinnitus, nasal congestion, nasal discharge or sore throat Resp Respiratory: No snoring, cough, shortness of breath or wheezing Cardio Cardiology: No excessive sweating, chest pain at rest, chest pain with exertion, shortness of breath, dyspnea on exertion or orthopnea Gastro GI: Positive for abdominal pain, nausea/dyspepsia (Chronic.) and heartburn; no change in bowel habits or cramping Genitourinary-Female: Positive for urinary frequency, urinary incontinence and other (Incontinence- stool); no difficulty urinating, burning urination, painful urination, urinary urgency, blood in urine, urinary retention or urinary hesitancy Musc Musculoskeletal: Positive for joint pain, back pain, stiffness, other (sciatica, leg pain at night) and neck pain; no abnormal walking, limited range of motion, numbness or tingling Skin Skin: Positive for rash; no redness, lesions or wounds Neuro Neurology: No weakness, abnormal hearing, abnormal walking, numbness, tingling, abnormal speech, dizziness or memory loss Psych Psychiatric: No change in appetite, No memory loss, Positive for anxiety, Positive for depression, No Thoughts of harming yourself/Others, Positive for other (compulsive/obsessive behavior, inattentive) Endo Endocrine: Positive for increased thirst/drinking and increased urination; no fatigue, excessive sweating, cold intolerance, heat intolerance, increased hunger or flushing Aller/Imm Allergy/Immunologic: No wheezing, seasonal allergy symptoms or hives Barak/Lymp Hematologic/Lymphatic: No easy bleeding, easy bruising or enlarged lymph nodes Exam Const General: cooperative, no acute distress, well developed Orientation: alert, awake, oriented x3 HENOK Head: atraumatic, normocephalic, normal to inspection Ears: hearing grossly normal bilaterally Neck Neck: normal visual inspection, full ROM, no lymphadenopathy Neck mass: No Thyroid: thyroid normal Resp Effort AND Inspection: normal respiratory effort, able to speak in complete sentences Auscultation: Bilateral: Clear to Auscultation Cardio Rate: regular rate Rhythm: regular rhythm Heart Sounds: S1 normal, S2 normal GI Palpation: soft, no hepatosplenomegaly Neuro General: alert, oriented x3, awake, CN's II-XI intact bilaterally, moves all extremities Extrem General: no pedal edema Psych Appearance: grossly normal Mental Status: mental status grossly normal Affect: normal affect Assessment AND Plan 1. Depression with anxiety F41.8 Plan Patient is doing well status post discharge from the [facility]. She is following up routinely with her psychiatrist. She denies any suicidal or homicidal ideations or attempts at this time Continue current medication. 2. Type 2 diabetes mellitus E11.9 Plan Yro-gjrxoxa-jfjumhgla. Currently on Faxiga. Patient is not sure of her last A1c. A1c ordered. Continue current medication. Follow-up with results. Lifestyle modification recommended. Orders Orders: 3. Hyperlipidemia E78.5 Plan Currently on atorvastatin 40 mg daily. She reports compliance. She is unsure of her last lipid profile. This was ordered. CMP also ordered. Continue lifestyle modification. Continue current medication. Follow-up results. Orders Orders: 4. Low back pain M54.5 Plan She reports a history of chronic low back pain and also neck pain. Has been on Percocet prescribed by her primary care physician. At some point was referred to pain management however she stopped follow-up due to a disagreement per patient. Referred to pain management. Ibuprofen as needed with food. 5. Abnormal mammogram R92.8 Plan She reports history of abnormal mammograms in the past however biopsies have been negative. Last mammogram was possibly in 2009. Mammogram ordered. Follow-up. This note was generated with [employer] software. It may contain incorrect words, spelling, and punctuation that were not noted in checking the note before signing. Plan Detail Other Orders Orders: Referrals: Other Medications New: Discontinued: Follow Up 3 Months Coding Level of Care Code Off vis,est,level 4 Diagnoses Depression with anxiety F41.8 Type 2 diabetes mellitus E11.9 Hyperlipidemia E78.5 Low back pain M54.5 Abnormal mammogram R92.8 07/08/17 1332 <Electronically signed by Trudy Ordaz MD> Date Trudy Ordaz MD Cosigner Signature: Date (if applicable) CC: CASE MANAGEM Observed: 06/24/2017 Status: COMPLETED Source: [place] 3:58 PM CLINIC OTHER CAMPUS REPOSITORY O ID: [id number] Author: Ann Sinclair (Sw) Service: Care Management Author Type: Assessor Type: Care Mgt Progress Note Filed: 06/24/2017 4:01 PM Note Text: CARE MANAGEMENT DISCHARGE NOTE SERVICE DATE: 06/24/2017 SERVICE TIME: 4:00PM LOS: 0 days Admission Date: 06/21/2017 DISCHARGE ARRANGEMENT (list agency and phone number) Home Provider: Phone: CAREGIVER ASSESSMENT: Caregiver is ready, willing and able to meet the patient's needs as recommended by the inter-professional team? No Caregiver Needed Patient's transition needs and plan for meeting these needs: Does the patient have an acute stroke diagnosis, or has the patient had a stroke during this admission? No HANDOFF COMMUNICATION: Patient does not have PCP; provided here with CC Physician Referral Line TRANSPORTATION ARRANGEMENTS: Family ADDITIONAL CONTACT RESOURCES: SIGNATURE: KEL Rubalcava PATIENT NAME: Yancy Shaw DATE: June 24, 2017 TIME: 3:58 PM PAGER/CONTACT #: [phone] CNDS Observed: 06/24/2017 Status: COMPLETED Source: [place] 12:03 PM CLINIC OTHER CAMPUS REPOSITORY O ID: [id number] Author: Uzma Hdz Service: General Internal Medicine Author Type: Physician Type: Discharge Summaries Filed: 06/24/2017 12:06 PM Note Text: DISCHARGE SUMMARY PATIENT NAME: Yancy Shaw ADMISSION DATE: 06/21/2017 DISCHARGE DATE: 06/24/2017 Attending Physician: UZMA HDZ Reason for Hospitalization: complicated UTI with enterococcus, hx of renal stones not obstructing Active Problems: Abdominal pain Hyperglycemia Dehydration Acute cystitis without hematuria Elevated lactic acid level Hypertension Diabetes mellitus type 2, uncontrolled (HCC) Resolved Problems: * No resolved hospital problems. * Operations During Hospitalization: None Procedures During Hospitalization: No procedures performed Hospital Course: 51 year old female who presents with vomiting and diarrhea for 2 days. ?She states that she's had no fever. ?She states adamant generally hurts, no focal area that is more painful. ?She states that no one has been sick she's been around. ?She's had no traveling. ?She states she was on antibiotics about a month ago for urinary tract infection. ?She denies any chest pain or shortness of breath. ?States occasionally her heart rate will feel like it's elevated, but then she controls her breathing and it goes away. ?She states her blood sugars have been running good around 113 of recent. ?Pt was treated conservatively, cultures grows in urine enterococcus sensitive to PCN, Vanco and nitrofurantoin and as pt allergic to PCN she was given vanco as IP and d/c with Nitrofurantoin for 5 days as OP to assure clearance. Pt to f/u with urologist and PCP in office within 1 week. Assessment and Plan: Active Hospital Problems Diagnosis - Abdominal pain -report nausea vomiting diarrhea -zofran -pain management -IVF -liquid -abd CT neg for acute process -stool studies, r/o c.diff in light of diarrhea and recent antibiotic use -wbc nl, afebrile - Hyperglycemia -hx DM2 -no ketones in urine -hold oral medications -continue Insulin with SSI and accucheck -check HglA1C - Dehydration -probably related to volume depletion, vomiting and diarrhea -IVF -recheck CMP now - Acute cystitis without hematuria -recurrent UTI, recently treated for uti -symptomatic, burning, frequency -urine culture pending -IV rocephin daily - Elevated lactic acid level -trending down after IVF -recheck now and in am -hold all antihyperglycemic medications for now, continue insulin, not on metformin - Diabetes mellitus type 2, uncontrolled (HCC) -continue home insulin plus SSI -hgla1c -accuchecks -hold anti hyperglycemia medications in light of lactic acid elevation - Hypertension -continue home medications Labs and Procedures Pending at Discharge: No pending results. Consulting Teams During Hospitalization: None Patient Condition @ Discharge: Stable Discharge Disposition: Home/Self Care Discharge Physical Exam: VITAL SIGNS: BP 156/87 Pulse 90 Temp 37 ?C (98.6 ?F) (Oral) Resp 18 Ht 162.6 cm (5' 4) Wt 81.7 kg (180 lb 1.9 oz) LMP 02/02/2006 SpO2 100% BMI 30.92 kg/m2 GENERAL: Alert, no distress, cooperative HEAD/SINUSES: No significant findings EYES: PERRLA, EOMI NECK: No JVD distention, No carotid bruits, Carotid pulse normal contour, Supple LUNGS: Lungs clear to auscultation, Good diaphragmatic excursion CARDIAC: Normal S1 and S2; no rubs, murmurs, or gallops Abdomin: SOFT, NT, ND, BS+ EXTREMITIES: Extremities normal, No deformities, edema, clubbing or skin discoloration. Good capillary refill., No ulcers Information Provided to Patient: General instructions, and follow ups Discharge Medications: Current Discharge Medication List START taking these medications nitrofurantoin monohydrate and macrocrystal (MACROBID) 100 mg Take 100 mg by mouth twice daily. Qty: 10 capsule Refills: 0 CONTINUE these medications which have NOT CHANGED aspirin 81 mg Take 81 mg by mouth once daily. dapagliflozin 5 mg Take 5 mg by mouth once daily. PROMETHAZINE HCL (PROMETHAZINE ORAL) 25 mg Take 25 mg by mouth three times daily as needed (Nausea/vomitting). prazosin (MINIPRESS) 1 mg Take 1 mg by mouth daily at bedtime. atorvastatin (LIPITOR) 40 mg Take 40 mg by mouth once daily. Qty: 30 tablet Refills: [address] (PROTONIX) 40 mg Take 40 mg by mouth once daily. Qty: 30 tablet Refills: 0 !! glipiZIDE (GLUCOTROL) 5 mg Take 5 mg by mouth once daily. Qty: 30 tablet Refills: 0 cholecalciferol (Vitamin D3) (VITAMIN D3) 50,000 Units Take 50,000 Units by mouth once each week. Qty: 12 capsule Refills: 3 Associated Diagnoses:Vitamin D deficiency oxybutynin (DITROPAN) 5 mg Take 5 mg by mouth twice daily. folic acid 1 mg Take 1 mg by mouth once daily. ALPRAZolam (XANAX) 1 mg Take 1 mg by mouth three times daily as needed. zolpidem (AMBIEN) 10 mg tab Take by mouth at bedtime as needed. albuterol HFA (PROVENTIL HFA, VENTOLIN HFA) 2 Puffs Inhale 2 Puffs as instructed every 4 hours as needed. insulin glargine (LANTUS) 31 Units Inject 31 Units subcutaneously daily at bedtime. INSULIN ASPART (NOVOLOG FLEXPEN SUBCUTANEOUS) 11 Units Inject 11 Units subcutaneously w MEALS. Insulin Syringe-Needle U-100 1 Each 1 Each daily at bedtime. Refills: 0 blood sugar diagnostic (BLOOD GLUCOSE TEST) test strip Test blood sugar(s) 3 times daily. Dx: 250.00. Insulin: Yes Lancets lancets Test blood sugar(s) 3 times daily. Dx: 250.00. Insulin: Yes acyclovir (ZOVIRAX) 800 mg Take 800 mg by mouth once daily. Qty: 30 tablet Refills: 0 Associated Diagnoses:Genital herpes sertraline (ZOLOFT) 75 mg Take 75 mg by mouth once daily. Qty: 45 tablet Refills: 0 Associated Diagnoses:Bipolar disorder (HCC) lisinopril (ZESTRIL, PRINIVIL) 20 mg Take 20 mg by mouth once daily. Qty: 30 tablet Refills: 0 Associated Diagnoses:Hypertension fenofibrate nanocrystallized (TRICOR) 145 mg Take 145 mg by mouth once daily. Qty: 30 tablet Refills: 0 Associated Diagnoses:Hypertriglyceridemia !! glipiZIDE (GLUCOTROL) 10 mg Take 10 mg by mouth every morning. Qty: 30 tablet Refills: 0 Associated Diagnoses:Diabetes mellitus type 2, uncontrolled (HCC) !! - Potential duplicate medications found. Please discuss with provider. Future Appointments: Follow Up with PCP: in 1 week With Urologist in 1-2 weeks Discharge Management: I personally spent greater than 30 minutes involved in the discharge management of this patient. SIGNATURE: Uzma Hdz MD PAGER: [phone], DATE: June 24, 2017 TIME: 12:03 PM NURSING PROG Observed: 06/24/2017 Status: COMPLETED Source: [place] 10:02 AM CLINIC OTHER CAMPUS REPOSITORY O ID: [id number] Author: Cristin (Hemalatha) HEMALATHA Holliday Service: (none) Author Type: Registered Nurse Type: Nursing Progress Note Filed: 06/24/2017 3:05 PM Note Text: Nursing Progress Note Patient Name: Yancy Shaw Patient Location: [place] [id number] Daily Note: 0700: Assumed care of patient. Patient resting in bed w/eyes closed. No visible s/o pain or discomfort. Room air, breathing unlabored. IV fluids infusing w/o complication. Call ashraf in reach, bed down, safety maintained. 0900: Patient resting in bed w/eyes open. Denies pain/discomfort at this time. No visible s/o pain or discomfort. Room air, breathing unlabored. IV fluids infusing w/o complication. Call ashraf in reach, bed down, safety maintained. 1100: Patient resting in bed w/eyes open. C/O mild abd pain. Patient requested ice for pain. No other needs requested at this time. IV fluids infusing w/o complication. Call ashraf in reach, bed down, safety maintained. 1300: Patient resting in bed w/eyes open. No c/o pain/nausea at this time. IV antibiotic infusing at this time. Safety maintained. This note was completed by: Cristin Holliday RN CBC Collected: 06/24/2017 Status: F Source: [place] 3:35 AM [facility] OTHER CAMPUS REPOSITORY TYPE CODE TESTS RESULT OUT OF REFERENCE UNITS RANGE LAB WBC 3.70-11.00 k/uL WBC 10.21 LAB RBC 3.90-5.20 m/uL Low RBC 3.39 LAB HGB 11.5-15.5 g/dL Low Hemoglobin 10.6 LAB HCT 36.0-46.0 % Low Hematocrit 30.3 LAB MCV 80.0-100.0 fL MCV 89.4 LAB MCH 26.0-34.0 pG MCH 31.3 LAB MCHC 30.5-36.0 g/dL MCHC 35.0 LAB RDWCV 11.5-15.0 % RDW-CV 12.1 LAB PLTCT 150-400 k/uL Platelet Count 238 LAB MPV 9.0-12.7 fL Low MPV 8.9 Performed By: #### CBC, CMP #### [facility] [address] [place] [address] COMP METABOLIC PANEL Collected: 06/24/2017 Status: F Source: [place] 3:35 AM [facility] OTHER CAMPUS REPOSITORY TYPE CODE TESTS RESULT OUT OF REFERENCE UNITS RANGE LAB TP 6.0-8.4 g/dL Protein, Total 6.4 LAB ALB 3.5-5.0 g/dL Albumin 3.6 LAB CA 8.5-10.5 mg/dL Calcium, Total 8.8 LAB TBIL 0.0-1.5 mg/dL Bilirubin, Total 0.3 LAB ALKP 40-150 U/L Alkaline Phosphatase 141 LAB AST 7-40 U/L AST 16 LAB GLU 65-100 mg/dL Glucose High 146 LAB BUN 8-25 mg/dL BUN 18 LAB CRET 0.70-1.40 mg/dL Creatinine 0.90 LAB NA 132-148 mmol/L Sodium 138 LAB K 3.5-5.0 mmol/L Potassium 4.1 LAB CL 98-110 mmol/L Chloride 99 LAB CO2 23-32 mmol/L CO2 27 LAB AGAP 0-15 mmol/L Anion Gap 12 LAB ALT 0-45 U/L ALT 28 LAB GFRAA eGFR- >60 Amer. LAB GFRNAA . eGFR-All Other Races >60 Result Comment: eGFR (Estimated GFR) Units of measure: mL/min/1.73 meters squared eGFR is derived from the reexpressed MDRD Study equation using the following parameters: serum creatinine, age, gender and race. The creatinine assay has been calibrated to be traceable to IDMS. An eGFR <60 mL/min/1.73m2 for >3 months is consistent with chronic kidney disease. Refer to KDOQI guidelines for clinical interpretation. In patients with unstable renal function, e.g. those with acute kidney injury, the eGFR may not accurately reflect actual GFR. Performed By: #### CBC, CMP #### [facility] [address] [place] [address] NURSING PROG Observed: 06/24/2017 Status: COMPLETED Source: [place] 2:42 AM [facility] REPOSITORY HNO ID: [id number] Author: Luz AbrahamRn) HEMALATHA Hernandes Service: (none) Author Type: Registered Nurse Type: Nursing Progress Note Filed: 06/24/2017 6:21 AM Note Text: Nursing Progress Note Patient Name: Yancy Shaw Patient Location: [place] [address] [address] Daily Note: 2330 assumed care of pt at this time. Denies nausea. No c/o's abd pain, abd soft, BS present. IVF infusing. 0100 sleeping without c/o's abd pain, nausea. IVF infusing. 0300 sleeping without c/o's abd pain, nausea. IVF infusing. 0500 sleeping without c/o's abd pain, nausea. IVF infusing. 0617 med with 1mg dilaudid iv for 7/10 abd pain. Denies nausea. IVF infusing. This note was completed by: Luz Hernandes RN NURSING PROG Observed: 06/24/2017 Status: COMPLETED Source: [place] 1:35 AM [facility] OTHER [place] REPOSITORY HNO ID: [id number] Author: Jordy AbrahamRn) HEMALATHA Gardiner Service: (none) Author Type: Registered Nurse Type: Nursing Progress Note Filed: 06/24/2017 1:37 AM Note Text: Nursing Progress Note Patient Name: Yancy Shaw Patient Location: [place] [id number] Daily Note: 1905 - assumed care of pt; pt resting in bed w/ eyes open; pt states abdominal pain is minimal and tolerable at this time; pt states she was able to eat dinner w/o nausea or vomiting; pt denies nausea at this time; plan of care discussed; IVF infusing; will continue to monitor 2100 - pt observed resting in bed w/ eyes open; pt w/ c/o of mild abdominal pain that is tolerable; pt denies nausea; no s/s of distress noted; IVF infusing; will continue to monitor This note was completed by: Jordy Gardiner RN NURSING PROG Observed: 06/24/2017 Status: COMPLETED Source: [place] 12:19 AM CLINIC OTHER CAMPUS REPOSITORY HNO ID: [id number] Author: Luz (Hemalatha) HEMALATHA Hernandes Service: (none) Author Type: Registered Nurse Type: Nursing Progress Note Filed: 06/24/2017 12:19 AM Note Text: Nursing Progress Note Patient Name: Yancy Shaw Patient Location: [place] [id number] Daily Note: 2330 assumed care of pt at this time. Rates abd pain 09/28. Denies nausea. IVF infusing without difficulty. This note was completed by: Luz Hernandes RN PROGRESS Observed: 06/23/2017 Status: COMPLETED Source: [place] 2:45 PM CLINIC OTHER CAMPUS REPOSITORY HNO ID: [id number] Author: Uzma Hdz Service: General Internal Medicine Author Type: Physician Type: Progress Notes Filed: 06/23/2017 2:48 PM Note Text: DEPARTMENT OF HOSPITAL MEDICINE PROGRESS NOTE Patient Name: Yancy Shaw SERVICE DATE AND TIME: June 23, 2017 2:46 PM Hospital Medicine/Primary Attending: Uzma Hdz MD NIGHT AND WEEKEND COVERAGE: Days: [phone], please page me or text for patient issues my pager cell # [phone]. Evening and Nights: [phone], please page [phone] ASSESSMENT AND PLAN Abdominal pain: Improving ? CTA/P negative apart from 2 very small non obstructing right renal calculi.CXR negative. ? ? abd pain due to gastritis . ? She is currently on protonix. ? Will add pepcid to see how she responds ? Meanwhile continue prn zofran,transition to full liquid diet. ? Gi consult if not better. ? ? Nausea ,vomiting and diarrhea. ? Vomiting and diarrhea have resolved but nausea persists . ? She Has chronic nausea -? Due to diabetic gastroparesis and takes phenergan at home ? Continue antinausea meds. ? Await stool study if diarrhea reoccurs ? Acute cystitis without hematuria POA: Yes ? She has a hx of recurrent UTI. ? Prelim urinary culture shows >100,000 CFU/ml Enterococcus species ? D/c ceftriaxone and start macrbid (she has hives with pcn) ? Patient reports no prior allergies To macrobid. ? Hypertension POA: Yes ? Fair control ? Continue current mgt. ? ? Diabetes mellitus type 2, uncontrolled (HCC) POA: Yes ? Last HBAIC 9 on 06/22/17 ? Fair glycemic readings ? Continue current mgt ? SUBJECTIVE INTERVAL HPI: Pt still having Nausea and pain MEDICATIONS: Reviewed OBJECTIVE PHYSICAL EXAM: BP 169/74 Pulse 85 Temp (Src) 98.8 (Oral) Resp 18 Ht 5' 4 (1.63m) Wt 180 lb 1.9 oz (81.7kg) SpO2 98% LMP 02/02/2006 BMI 30.90 kg/(m2). GENERAL: Alert, no distress, cooperative HEAD/SINUSES: No significant findings NECK: Supple, No JVD distention, No carotid bruits, Carotid pulse normal contour, LUNGS: Lungs clear to auscultation, Good diaphragmatic excursion CARDIAC: Normal S1 and S2; no rubs, murmurs, or gallops ABDOMEN: Abdomen soft, non-tender, BS normal, No masses or organomegaly EXTREMITIES: Extremities normal, No deformities, edema, clubbing. DATA: Diagnostic tests reviewed for today's visit: Lab Results Component Value Date/Time WBC 9.56 06/23/2017 04:10 AM HB 11.6 06/23/2017 04:10 AM HCT 33.5 (L) 06/23/2017 04:10 AM MCV 91.0 06/23/2017 04:10 AM PLT 256 06/23/2017 04:10 AM NA 135 06/23/2017 04:10 AM K 3.9 06/23/2017 04:10 AM BUN 16 06/23/2017 04:10 AM CREAT 0.88 06/23/2017 04:10 AM GLUC 149 (H) 06/23/2017 04:10 AM AST 28 06/23/2017 04:10 AM ALT 34 06/23/2017 04:10 AM ALB 3.9 06/23/2017 04:10 AM INR 1.0 10/08/2004 09:42 AM VTE Prophylaxis: Patient is already on Heparin prophylaxis dose Disposition: TBD Plan of care discussed with: Patient SIGNATURE: Uzma Hdz MD Pager DATE AND TIME: June 23, 2017 2:46 PM LACTATE Collected: 06/23/2017 Status: F Source: [place] 8:34 AM [facility] [place] REPOSITORY TYPE CODE TESTS RESULT OUT OF REFERENCE UNITS RANGE LAB LACT 0.5-2.2 mmol/L Lactate 1.1 Performed By: #### LACT #### [facility] [address] [place] [address] NURSING PROG Observed: 06/23/2017 Status: COMPLETED Source: [place] 7:45 AM [facility] OTHER CAMPUS REPOSITORY HNO ID: [id number] Author: Nicolás (Rn) HEMALATHA Argueta Service: (none) Author Type: Registered Nurse Type: Nursing Progress Note Filed: 06/23/2017 6:45 PM Note Text: Nursing Progress Note Patient Name: Yancy Shaw Patient Location[place] [facility] [id number] Daily Note:Resting in bed, denies pain @ this time. Some nausea noted, will monitor. Instructed too call for assist with transfers. No s/s hypo/hyperglycemia. IVFs maintained 0800-Dry heaves, small emesis. Medicated with Zofran-will monitor. AM meds AND insulin held for now due to emesis-will monitor 1000-No chg in assessment, resting in bed. IVFs maintained- no improvement in nausea/dry heaves/emesis. Call to Dr. Hdz. Patient also requesting pain meds-explained that Morphine may be part of her nausea problem. Dr. Hdz paged. Enc patient to stick to clears until feeling better. Patient c/o epigastic pain-Reglan given, will monitor. Continue to hold meds/insulins-no s/s hypo/hyperglycemia 1200-No chg in assessment-IVFs maintained. Medicated for pain with gd effect. Nausea improving. Resting in bed, taking clears 1400-sleeping for pain med reassess-IVFs maintained. No c/o offered, no s/s hypo/hyperglycemia 1600-IVFs maintained, no chg in assessment. Resting in bed dozing on/off. 1800-Medicated for pain AND nausea with gd relief-IVFs maintained. No s/s hypo/hyperglycemia. Diet ordered, denies any nausea. Resting in bed This note was completed by: Nicolás Argueta RN CBC Collected: 06/23/2017 Status: F Source: [place] 4:10 AM CLINIC OTHER CAMPUS REPOSITORY TYPE CODE TESTS RESULT OUT OF REFERENCE UNITS RANGE LAB WBC 3.70-11.00 k/uL WBC 9.56 LAB RBC 3.90-5.20 m/uL Low RBC 3.68 LAB HGB 11.5-15.5 g/dL Hemoglobin 11.6 LAB HCT 36.0-46.0 % Low Hematocrit 33.5 LAB MCV 80.0-100.0 fL MCV 91.0 LAB MCH 26.0-34.0 pG MCH 31.5 LAB MCHC 30.5-36.0 g/dL MCHC 34.6 LAB RDWCV 11.5-15.0 % RDW-CV 12.4 LAB PLTCT 150-400 k/uL Platelet Count 256 LAB MPV 9.0-12.7 fL MPV 9.2 Performed By: #### CBC, CMP #### [facility] [address] [facility] [phone] COMP METABOLIC PANEL Collected: 06/23/2017 Status: F Source: [place] 4:10 AM CLINIC OTHER CAMPUS REPOSITORY TYPE CODE TESTS RESULT OUT OF REFERENCE UNITS RANGE LAB TP 6.0-8.4 g/dL Protein, Total 7.1 LAB ALB 3.5-5.0 g/dL Albumin 3.9 LAB CA 8.5-10.5 mg/dL Calcium, Total 8.8 LAB TBIL 0.0-1.5 mg/dL Bilirubin, Total 0.4 LAB ALKP 40-150 U/L Alkaline High Phosphatase 156 LAB AST 7-40 U/L AST 28 Result Comment: Results may be falsely increased due to interference by hemolysis. Suggest reorder as clinically indicated. LAB GLU 65-100 mg/dL Glucose High 149 LAB BUN 8-25 mg/dL BUN 16 LAB CRET 0.70-1.40 mg/dL Creatinine 0.88 LAB NA 132-148 mmol/L Sodium 135 LAB K 3.5-5.0 mmol/L Potassium 3.9 LAB CL 98-110 mmol/L Low Chloride 95 LAB CO2 23-32 mmol/L CO2 28 LAB AGAP 0-15 mmol/L Anion Gap 12 LAB ALT 0-45 U/L ALT 34 LAB GFRAA eGFR- Amer. >60 LAB GFRNAA . eGFR-All Other Races >60 Result Comment: eGFR (Estimated GFR) Units of measure: mL/min/1.73 meters squared eGFR is derived from the reexpressed MDRD Study equation using the following parameters: serum creatinine, age, gender and race. The creatinine assay has been calibrated to be traceable to IDMS. An eGFR <60 mL/min/1.73m2 for >3 months is consistent with chronic kidney disease. Refer to KDOQI guidelines for clinical interpretation. In patients with unstable renal function, e.g. those with acute kidney injury, the eGFR may not accurately reflect actual GFR. Performed By: #### CBC, CMP #### [facility] [address] [facility] [phone] NURSING PROG Observed: 06/23/2017 Status: COMPLETED Source: [place] 1:54 AM [facility] REPOSITORY HNO ID: [id number] Author: Mayuri (Rn) HEMALATHA Das Service: Nursing Author Type: Registered Nurse Type: Nursing Progress Note Filed: 06/23/2017 2:03 AM Note Text: Post Fall Assessment Yancy Shaw [id number] Witnessed: Yes How did fall occur: Ambulating to / from bathroom Location: Patient room Contributing factors: confused / disoriented, lost balance, failure to call and sudden weakness Brief factual description: VS: 108/39, 111, 16, BS 140, A/O x3, follows commands. (*Document vital signs, neuro checks, blood sugars in the appropriate flow sheet.) Initial Physical Assessment Injury: No Patient hit head: No Immediate actions taken: Assisted back to bed / chair Name of LIP notified: Dr. Cira Upton. Notify family as appropriate: Emergency contact Post fall interventions: Bed Alarm On, Frequent Observation, Patient/Family Education, Apply a Yellow Wrist Band, Apply Howell Risk Symbol to the Door, My Safety Plan Initiated and My Safety Plan Visible This note was completed by:Mayuri Das RN PROGRESS Observed: 06/23/2017 Status: COMPLETED Source: [place] 1:28 AM [facility] REPOSITORY HNO ID: [id number] Author: Cira Upton Service: General Internal Medicine Author Type: Physician Type: Progress Notes Filed: 06/23/2017 6:46 AM Note Text: [facility]ONSE TEAM Rapid Response Date of MET Page: June 23, 2017 Time of MET Page: refer pager time SUMMARY DIAGNOSIS, ASSESSMENT and RECOMMENDATIONS Orthostatic hypotension Dizziness and collapse to floor Status: Stable PLAN, DISPOSITION and OUTCOME Responded to therapy, remains on current unit under care of: Internal Medicine team History of Present Illness: This is a 51 year old female who was admitted to the hospital for ABD pain, N/V, UTI PRIMARY REASON FOR CALL Orthostatic hypotension Dizziness and collapse to floor PAST MEDICAL / SURGICAL HISTORY PAST MEDICAL HISTORY Diagnosis Date - ADD (attention deficit disorder) - Anxiety and depression - Bipolar I disorder, most recent episode (or current) unspecified - Chronic headache - Chronic hepatitis (HCC) unidentified cause, elevated liver enzymes - Chronic pain due to injury left shoulder - Genital herpes - History of noncompliance with medical treatment - Hypertension - Hypertriglyceridemia - Seasonal allergies - Trigeminal neuralgia - Type II or unspecified type diabetes mellitus without mention of complication, not stated as uncontrolled - Vitamin D deficiency 2013 MEDICATIONS Current Facility-Administered Medications: fenofibrate 200 mg cap(s) (LOFIBRA) 200 mg ORAL DAILY WITH BREAKFAST nitrofurantoin monohydrate and macrocrystal 100 mg cap(s) (MACROBID) 100 mg ORAL BID w MEALS lactobacillus rhamnosus 10 billion cell (CULTURELLE) capsule 1 capsule ORAL DAILY famotidine 20 mg injection (PEPCID) 20 mg INTRAVENOUS q 12 H insulin glargine 33 Units injection (long acting) (LANTUS) 33 Units SUBCUTANEOUS AT BEDTIME prazosin 1 mg cap(s) (MINIPRESS) 1 mg ORAL AT BEDTIME ALPRAZolam 1 mg tab(s) (XANAX) 1 mg ORAL TID PRN atorvastatin 40 mg tab(s) (LIPITOR) 40 mg ORAL DAILY lisinopril 20 mg tab(s) (ZESTRIL, PRINIVIL) 20 mg ORAL DAILY acyclovir 800 mg tab(s) (ZOVIRAX) 800 mg ORAL DAILY aspirin 81 mg chewable tab(s) 81 mg ORAL DAILY pantoprazole DR 40 mg tab(s) (PROTONIX) 40 mg ORAL DAILY (6 AM) zolpidem 10 mg tab(s) (AMBIEN) 10 mg ORAL HS PRN sertraline 75 mg tab(s) (ZOLOFT) 75 mg ORAL DAILY oxybutynin 5 mg tab(s) (DITROPAN) 5 mg ORAL BID dextrose 40 % 15 g (INSTA-GLUCOSE) 15 g ORAL PRN Or glucagon 1 mg injection (GLUCAGEN) 1 mg INTRAMUSCULAR PRN Or dextrose 50% in water 25 mL syringe 12.5 g INTRAVENOUS PRN 0.9% NaCl 3-5 mL 3-5 mL INTRAVENOUS q 12 H ondansetron orally disintegrating 4 mg tab(s) (ZOFRAN ODT) 4 mg ORAL q 6 H PRN Or ondansetron (PF) 4 mg injection (ZOFRAN) 4 mg INTRAVENOUS q 6 H PRN acetaminophen 650 mg tab(s) (TYLENOL) 650 mg ORAL q 6 H PRN morphine 2-4 mg injection 2-4 mg INTRAVENOUS q 4 H PRN insulin lispro injection (rapid acting) (HumaLOG) SUBCUTANEOUS w MEALS NaCl 0.9% iv infusion 75 mL/hr INTRAVENOUS CONTINUOUS insulin lispro 11 Units injection (rapid acting) (HumaLOG) 11 Units SUBCUTANEOUS w MEALS ALLERGIES ALLERGIES Allergen Reactions - Codeine Mental Status Change - Penicillins Hives, Swelling - Latex Rash PERTINENT PHYSICAL EXAM and INITIAL ASSESSMENT (For vital signs prior and during MET call, see nursing documentation) Pertinent Vital Signs at Time of MET Call: BP - 108/39 mm Hg, HR- 111/min, SPO2 - 99% in RA, RR- 20/min Appearance: No distress and Pale Airway Patent: Yes Breathing Evaluation: Normal Breathing Adequate: Yes Circulation Evaluation: Skin warm, Pulses :weak and regular and Heart Sounds S1S2 heard Circulation Adequate: Yes Neurologic Evaluation: Alert Is the Level of Consciousness at Baseline: Yes Additional Physical Exam Findings: Head/Eyes: PERRLA Skin: warm Lungs: clear Abdomen: soft, non-tender and bowel sounds present Extremities: normal exam of the extremities PERTINENT DIAGNOSTICS None INTERVENTIONS Given NS bolus of 500 ml/30 min Transferred to bed with assistance Lie supine flat position Monitor vitals Since she improved, no stat labs ordered, Follow AM labs Intervention Response: Improved Primary Team Aware/Notified: Yes Critical Care Time: I personally spent 35 minutes directly supervising and providing critical care in the prevention of imminent deterioration as noted above, exclusive of any procedures I performed or supervised. I have reviewed, approved and signed the paper MET note. Please refer to this for complete orders and nursing/respiratory documentation. SIGNATURE: Cira Upton MD PATIENT NAME: Yancy Shaw DATE: June 23, 2017 TIME: 1:28 AM PAGER: [phone] NURSING PROG Observed: 06/23/2017 Status: COMPLETED Source: [place] 12:51 AM CLINIC OTHER CAMPUS REPOSITORY HNO ID: [id number] Author: Mayuri (Rn) HEMALATHA Das Service: Nursing Author Type: Registered Nurse Type: Nursing Progress Note Filed: 06/23/2017 3:33 AM Note Text: Nursing Progress Note Patient Name: Yancy Shaw Patient Location[place] [facility] [id number] Daily Note: 1933 Pt in bed resting, denies any ABD pain or discomfort, resp, unlabored and even on RA, PIV patent and its site benign, IVF at 75 ml/hr, bed in low position and locked, call light within reach. 2121 Scheduled medications administered with PRN Ambien, Pt in bed resting, denies any needs at the moment, resp, unlabored and even on RA, IVF at 75 ml/hr, bed in low position and locked, call light within reach. 2299 Pt in bed resting with eyes closed, no s/s of pain or discomfort, resp, unlabored and even on RA, IVF at 75 ml/hr, bed in low position and locked, call light within reach. 0115 Pt found holding bathroom door, confused at first, not able to stand on her one, witness with assigned PCNA and this nurse, lowered to floor without any injuries, extremely week, appears decreased LOC but pt becomes alert shortly. 0117 rapid response initiated, Dr. Jimenez at bedside, VS wnl except elevated HR, pt denies any CP, resp. Unlabored and even on RA, A/O x3, BS 140. 0123 Pt able to stand on her feet with assistance, a new order received from Dr. Jimenez, pt stable at the moment without any injuries from prior fall, please refer to the rapid response sheet. 0233 Pt resting with eyes closed, 500 ml NaCl bolus complete, pt c/o nausea, PRN med administered, pt understands that Narcotic med can increase risks for falls, okay to wait a little while for pain med, resp, unlabored and even on RA, IVF at 75 ml/hr, bed in low position and locked, call light within reach. This note was completed by: Mayuri Das RN PROGRESS Observed: 06/22/2017 Status: COMPLETED Source: [place] 3:35 PM CLINIC OTHER CAMPUS REPOSITORY HNO ID: [id number] Author: Radha Valerio Service: Hospital Medicine Author Type: Physician Type: Progress Notes Filed: 06/23/2017 1:36 AM Note Text: INPATIENT PROGRESS NOTE SERVICE DATE: 06/22/2017 SERVICE TIME: 3.00PM SUBJECTIVE CHIEF COMPLAINT: No V/D . Abd pain improving Still needing to take zofran or phenergan for nausea . Denies fever,chills Current hospital medications: fenofibrate 200 mg cap(s) (LOFIBRA) 200 mg ORAL DAILY WITH BREAKFAST nitrofurantoin monohydrate and macrocrystal 100 mg cap(s) (MACROBID) 100 mg ORAL BID w MEALS lactobacillus rhamnosus 10 billion cell (CULTURELLE) capsule 1 capsule ORAL DAILY famotidine 20 mg injection (PEPCID) 20 mg INTRAVENOUS q 12 H insulin glargine 33 Units injection (long acting) (LANTUS) 33 Units SUBCUTANEOUS AT BEDTIME prazosin 1 mg cap(s) (MINIPRESS) 1 mg ORAL AT BEDTIME ALPRAZolam 1 mg tab(s) (XANAX) 1 mg ORAL TID PRN atorvastatin 40 mg tab(s) (LIPITOR) 40 mg ORAL DAILY lisinopril 20 mg tab(s) (ZESTRIL, PRINIVIL) 20 mg ORAL DAILY acyclovir 800 mg tab(s) (ZOVIRAX) 800 mg ORAL DAILY aspirin 81 mg chewable tab(s) 81 mg ORAL DAILY pantoprazole DR 40 mg tab(s) (PROTONIX) 40 mg ORAL DAILY (6 AM) zolpidem 10 mg tab(s) (AMBIEN) 10 mg ORAL HS PRN sertraline 75 mg tab(s) (ZOLOFT) 75 mg ORAL DAILY oxybutynin 5 mg tab(s) (DITROPAN) 5 mg ORAL BID dextrose 40 % 15 g (INSTA-GLUCOSE) 15 g ORAL PRN glucagon 1 mg injection (GLUCAGEN) 1 mg INTRAMUSCULAR PRN dextrose 50% in water 25 mL syringe 12.5 g INTRAVENOUS PRN 0.9% NaCl 3-5 mL 3-5 mL INTRAVENOUS q 12 H ondansetron orally disintegrating 4 mg tab(s) (ZOFRAN ODT) 4 mg ORAL q 6 H PRN ondansetron (PF) 4 mg injection (ZOFRAN) 4 mg INTRAVENOUS q 6 H PRN acetaminophen 650 mg tab(s) (TYLENOL) 650 mg ORAL q 6 H PRN morphine 2-4 mg injection 2-4 mg INTRAVENOUS q 4 H PRN insulin lispro injection (rapid acting) (HumaLOG) SUBCUTANEOUS w MEALS NaCl 0.9% iv infusion 75 mL/hr INTRAVENOUS CONTINUOUS insulin lispro 11 Units injection (rapid acting) (HumaLOG) 11 Units SUBCUTANEOUS w MEALS OBJECTIVE PHYSICAL EXAM: BP 145/73 Pulse 87 Temp (Src) 98.8 (Oral) Resp 18 Ht 5' 4 (1.63m) Wt 180 lb 1.9 oz (81.7kg) SpO2 99% LMP 02/02/2006 BMI 30.90 kg/(m2). GENERAL: Alert, no distress, cooperative, Obese LUNGS: Lungs clear to auscultation, Good diaphragmatic excursion CARDIAC: Normal S1 and S2; no rubs, murmurs, or gallops ABDOMEN: Abdomen soft, supraumbilical abdominal -tenderness, BS normal, Negative CVA tenderness NEURO:Awake,alert,oriented x3 DATA: Diagnostic tests reviewed for today's visit: Most recent labs and imaging results. ASSESSMENT/PLAN Active Problems: Abdominal pain POA: Yes Assessment AND Plan: Improving CTA/P negative apart from 2 very small non obstructing right renal calculi.CXR negative. ? abd pain due to gastritis . She is currently on protonix. Will add pepcid to see how she responds Meanwhile continue prn zofran,transition to full liquid diet. Gi consult if not better. Nausea ,vomiting and diarrhea. Vomiting and diarrhea have resolved but nausea persists . She Has chronic nausea -? Due to diabetic gastroparesis and takes phenergan at home Continue antinausea meds. Await stool study if diarrhea reoccurs Acute cystitis without hematuria POA: Yes Assessment AND Plan: She has a hx of recurrent UTI. Prelim urinary culture shows >100,000 CFU/ml Enterococcus species D/c ceftriaxone and start macrbid (she has hives with pcn) Patient reports no prior allergies To macrobid. Elevated lactic acid level POA: Yes Assessment AND Plan: Resolved with IVF No lab findings due to DKA Hypertension POA: Yes Assessment AND Plan: Fair control Continue current mgt. Diabetes mellitus type 2, uncontrolled (HCC) POA: Yes Assessment AND Plan: Last HBAIC 9 on 06/22/17 Fair glycemic readings Continue current mgt Dr Hdz will assume care tomorrow 06/23/17 SIGNATURE: Radha Valerio MD PATIENT NAME: Yancy Shaw DATE: June 22, 2017 TIME: 3:35 PM PAGER: [phone] CASE MGT INIT Observed: 06/22/2017 Status: COMPLETED Source: [place] 11:20 AM CLINIC OTHER CAMPUS REPOSITORY HNO ID: [id number] Author: Ann Sinclair (Sw) Service: Care Management Author Type: Assessor Type: Care Mgt Initial Assessment Filed: 06/22/2017 11:24 AM Note Text: CARE MANAGEMENT: ASSESSMENT AND DISCHARGE PLAN SERVICE DATE: 06/22/2017 SERVICE TIME: 11:00AM PRIMARY CARE PHYSICIAN: Kenia Pcp Phone: None ADMISSION STATUS: Observation POTENTIAL DISCHARGE PLANS Home Patient/Rn Case Manager Hospice Stated Goals: Return home with spouse Health Insurance: [facility] Medicaid Living Arrangement: Home Lives With: Spouse Financial Resources: Unemployed Primary Contact: Primary Emergency Contact: Librado Shaw Mobile Relation: Spouse Supportive: Yes Other Important Patient Contacts: None CAREGIVER ASSESSMENT: Caregiver is ready, willing and able to meet the patient's needs as recommended by the inter-professional team? No Caregiver Needed Patient's transition needs and plan for meeting these needs: Does the patient have an acute stroke diagnosis, or has the patient had a stroke during this admission? No ADVANCE DIRECTIVES: Does Patient Have Advance Directives? No, Patient refused Does Patient Have Concerns About Advance Directives? No PRIOR TO ADMISSION: Baseline Mental Status: Alert AND Oriented, Person, Place , Time and Situation Functional Status: Independent Does Patient Currently Receive Any Community Services or Home Care? None Equipment Prior to Admission: None HEALTH: Health Issues Impacting Discharge Plan: None Health Literacy Issues: No PSYCHOSOCIAL: Is the Patient Psychosocially Complex? No Family/Patient Understanding of Illness/Diagnosis: Fully understands Medication Adherence: Do you forget to take your medications? I do not forget to take my medication Have you ever stopped taking medications because you felt worse? None of the time Have you ever taken less of your medication than what was prescribed by your doctor? None of the time In the past 3 months, have you had issues obtaining one or more of your medications? None of the time Are you interested in bedside delivery of your medications? No Food Concerns: In the Last Month, Have You had Trouble Getting Food? No trouble getting food During the Last Month, Have You Worried Whether Your Food Would Run Out Before You Had Enough Money to Buy More? No Psychosocial Needs: None UTILIZATION: Last Admission Date: none Is this Within the Past 30 days? No Has the Patient Been in a Care Home Facility in the Past 30 days? No FREEDOM OF CHOICE EXPLAINED: N/A HANDOFF COMMUNICATION: Currently has no PCP; provided with number for Physician Referral Line SIGNATURE: KEL Rubalcava PATIENT NAME: Yancy Shaw DATE: June 22, 2017 TIME: 11:20 AM PAGER/CONTACT #: [phone] NURSING PROG Observed: 06/22/2017 Status: COMPLETED Source: [place] 7:00 AM CLINIC OTHER CAMPUS REPOSITORY HNO ID: [id number] Author: Jonathan Khan (Rn) HEMALATHA Franklin Service: Nursing Author Type: Registered Nurse Type: Nursing Progress Note Filed: 06/22/2017 7:02 PM Note Text: Nursing Progress Note Patient Name: Yancy Shaw Patient Location: [place] [id number]- Observation Daily Note: 0700- Assumed care of patient at this time. Patient is observed resting in bed with eyes closed and easy respirations. Patient is on RA. No NAD noted. IVF infusing per MD order without observation of complications. 0900- Patient observed resting in bed with eyes closed and easy respirations. No observation of pain or distress noted. IVF infusing per MD order without observation of infiltration. 0927- Patient awake and resting in bed. Alert, oriented, pleasant. Complains of pain, medicated according to PRN eMAR. LS clear. Denies cough. Denies SOB. BS Present, hyperactive. ABD soft and non tender. Denies v/d since 2229 last night (06/22). States nausea, PRN provided. No edema. IVP ATB treatment provided without observation of adverse reaction. Fluids infusing per MD order without issue. 0941- Patient medicated with PRN medications for complaints of pain. See eMAR. 1100- Patient resting in bed with easy respirations. No complaints of n/v/d or ABD pain. CM rounding with patient. IV fluids infusing. Denies needs. 1300- Patient resting in bed with eyes closed and easy respirations. No observation of pain or distress. IVF infusing as ordered. 1356- PRN medications provided for complaints of pain, see eMAR. Patient appears in NAD. IVF infusing without complications. Respirations even and unlabored. 1604- Patient complained of nausea and medicated at this time with PRN medications according to eMAR. Patient appears in NAD and appears free of pain. Respirations remain even and unlabored. 1855- Patient complained of pain/njausea and medicated with PRN medications at this time per eMAR. Scheduled medicated remain not in PIXIS at this time, awaiting delivery from pharmacy. IVF infusing per MD order. Denies needs. This note was completed by: Jonathan Franklin RN LACTATE Collected: 06/22/2017 Status: F Source: [place] 6:01 AM [facility] OTHER [facility] REPOSITORY TYPE CODE TESTS RESULT OUT OF REFERENCE UNITS RANGE LAB LACT 0.5-2.2 mmol/L Lactate 1.4 Performed By: #### LACT, CBC, CMP #### [facility] [address] [place] [address] CBC Collected: 06/22/2017 Status: F Source: [place] 6:01 AM [facility] OTHER [facility] REPOSITORY TYPE CODE TESTS RESULT OUT OF REFERENCE UNITS RANGE LAB WBC 3.70-11.00 k/uL WBC 10.72 LAB RBC 3.90-5.20 m/uL Low RBC 3.50 LAB HGB 11.5-15.5 g/dL Low Hemoglobin 11.1 LAB HCT 36.0-46.0 % Low Hematocrit 32.7 LAB MCV 80.0-100.0 fL MCV 93.4 LAB MCH 26.0-34.0 pG MCH 31.7 LAB MCHC 30.5-36.0 g/dL MCHC 33.9 LAB RDWCV 11.5-15.0 % RDW-CV 12.5 LAB PLTCT 150-400 k/uL Platelet Count 248 LAB MPV 9.0-12.7 fL MPV 9.1 Performed By: #### LACT, CBC, CMP #### [facility] [address] [place] [address] COMP METABOLIC PANEL Collected: 06/22/2017 Status: F Source: [place] 6:01 AM CLINIC OTHER CAMPUS REPOSITORY TYPE CODE TESTS RESULT OUT OF REFERENCE UNITS RANGE LAB TP 6.0-8.4 g/dL Protein, Total 7.1 LAB ALB 3.5-5.0 g/dL Albumin 3.9 LAB CA 8.5-10.5 mg/dL Calcium, Total 9.2 LAB TBIL 0.0-1.5 mg/dL Bilirubin, Total 0.3 LAB ALKP 40-150 U/L Alkaline Phosphatase 146 LAB AST 7-40 U/L AST 17 LAB GLU 65-100 mg/dL Glucose High 200 LAB BUN 8-25 mg/dL BUN High 30 LAB CRET 0.70-1.40 mg/dL Creatinine 0.99 LAB NA 132-148 mmol/L Sodium 138 LAB K 3.5-5.0 mmol/L Potassium 4.1 LAB CL 98-110 mmol/L Chloride Low 97 LAB CO2 23-32 mmol/L CO2 28 LAB AGAP 0-15 mmol/L Anion Gap 13 LAB ALT 0-45 U/L ALT 26 LAB GFRAA eGFR- >60 Amer. LAB GFRNAA . eGFR-All Other Races 59 Result Comment: eGFR (Estimated GFR) Units of measure: mL/min/1.73 meters squared eGFR is derived from the reexpressed MDRD Study equation using the following parameters: serum creatinine, age, gender and race. The creatinine assay has been calibrated to be traceable to IDMD. An eGFR <60 mL/min/1.73m2 for >3 months is consistent with chronic kidney disease. Refer to KDOQI guidelines for clinical interpretation. In patients with unstable renal function, e.g. those with acute kidney injury, the eGFR may not accurately reflect actual GFR. Performed By: #### LACT, CBC, CMP #### [facility] [address] [place] [address] LACTATE Collected: 06/22/2017 Status: F Source: [place] 12:09 AM [facility] OTHER CAMPUS REPOSITORY TYPE CODE TESTS RESULT OUT OF REFERENCE UNITS RANGE LAB LACT 0.5-2.2 mmol/L High Lactate 2.6 Performed By: #### LACT, CMP #### [facility] [address] [place] [address] #### HBA1C #### [facility] [place] [facility] [address] [place] [address] COMP METABOLIC PANEL Collected: 06/22/2017 Status: F Source: [place] 12:09 AM [facility] OTHER CAMPUS REPOSITORY TYPE CODE TESTS RESULT OUT OF REFERENCE UNITS RANGE LAB TP 6.0-8.4 g/dL Protein, Total 8.1 LAB ALB 3.5-5.0 g/dL Albumin 4.5 LAB CA 8.5-10.5 mg/dL Calcium, Total 9.9 LAB TBIL 0.0-1.5 mg/dL Bilirubin, Total 0.5 LAB ALKP 40-150 U/L Alkaline High Phosphatase 166 LAB AST 7-40 U/L AST 14 LAB GLU 65-100 mg/dL Glucose High 212 LAB BUN 8-25 mg/dL BUN High 32 LAB CRET 0.70-1.40 mg/dL Creatinine 1.02 LAB NA 132-148 mmol/L Sodium 138 LAB K 3.5-5.0 mmol/L Potassium 4.2 LAB CL 98-110 mmol/L Chloride Low 95 LAB CO2 23-32 mmol/L CO2 28 LAB AGAP 0-15 mmol/L Anion Gap 15 LAB ALT 0-45 U/L ALT 29 LAB GFRAA eGFR- >60 Amer. LAB GFRNAA . eGFR-All Other Races 57 Result Comment: eGFR (Estimated GFR) Units of measure: mL/min/1.73 meters squared eGFR is derived from the reexpressed MDRD Study equation using the following parameters: serum creatinine, age, gender and race. The creatinine assay has been calibrated to be traceable to IDMS. An eGFR <60 mL/min/1.73m2 for >3 months is consistent with chronic kidney disease. Refer to KDOQI guidelines for clinical interpretation. In patients with unstable renal function, e.g. those with acute kidney injury, the eGFR may not accurately reflect actual GFR. Performed By: #### LACT, CMP #### [facility] [address] [facility] [phone] #### HBA1C #### [facility] [place] [facility] [address] [place] [address] HEMOGLOBIN A1C Collected: 06/22/2017 Status: F Source: [place] 12:09 AM [facility] OTHER [facility] REPOSITORY TYPE CODE TESTS RESULT OUT OF REFERENCE UNITS RANGE LAB HGBA1C 4.3-5.6 % High Hemoglobin A1c 9.0 LAB HBA0 mg/dL Est. Average Glucose 212 Result Comment: eAG: (Estimated average glucose) is a calculated value from HgbA1c and is territory representative of the average blood glucose level in the last 2-3 month period. Performed By: #### LACT, CMP #### [facility] [address] [facility] [phone] #### HBA1C #### [facility] [place] [facility] [place] [address] CNCO Observed: 06/22/2017 Status: COMPLETED Source: [place] 12:00 AM [facility] REPOSITORY Letter Text June 22, 2017 [facility] [address] [place] [address] Regarding: Yancy Shaw (: 1965) Dear Dr. Martinez: A patient of your practice, Yancy Shaw, was admitted on 06/21/2017 to [facility] under the services of the Department of Hospital Medicine, and is currently under the care of Dr. Valerio. We look forward to collaborating with you regarding her care. If you have any questions or concerns, please call us in the Department of Hospital Medicine at [facility] [place], at [phone]. Best Regards, Beto Mcclellan Letter Text June 25, 2017 [facility] [address] [place] [address] Re: Yancy Shaw Dear Dr. Martinez: A patient of your practice, Yancy Shaw (: 1965) was treated at [facility] under the care of the [facility] [place] Department of Hospital Medicine, and discharged on 06/24/2017. A transcribed discharge summary should be forthcoming promptly. If you need additional information or assistance, you may contact the Department of Hospital Medicine at [phone] during regular business hours, and we?ll be happy to assist you. Best Regards, Beto Mcclellan Observed: 06/21/2017 Status: F Source: [place] URINE CULTURE 11:30 PM [facility] OTHER CAMPUS REPOSITORY Sp. Request/Comment: - Specimen received in preservative Urine midstream clean catch Culture Result - >=100,000 CFU/ml Enterococcus faecalis --> ABNORMAL ALERT ORGANISM: Enterococcus faecalis METHOD: Minimum inhibitory concentration(Vitek) Antibiotic Interp OPAL Status Ampicillin SUSCEPTIBLE <=2 F Nitrofurantoin SUSCEPTIBLE <=16 F Vancomycin SUSCEPTIBLE 1 F Performed By: #### URCUL #### [facility] [place] [facility] [address] [place], [place] [address] NURSING PROG Observed: 06/21/2017 Status: COMPLETED Source: [place] 11:08 PM CLINIC OTHER CAMPUS REPOSITORY HNO ID: [id number] Author: Juan Miguel Alan (Rn) HEMALATHA Posada Service: Nursing Author Type: Registered Nurse Type: Nursing Progress Note Filed: 06/22/2017 7:01 AM Note Text: Nursing Progress Note Patient Name: Yancy Shaw Patient Location: [place] [id number] Daily Note: 2300 Admission and shift assessment complete. 06/22/2017 0025 Pain and nausea medicine given. Patient requests Ambien as well, states takes nightly. Understands will give after appropriate spacing between the morphine. 0114 Page sent to inform Hospitalist of lactate level. States in text page lactate 2.6. This is an increase from the last draw of 2.4. 0116 Informed Hospitalist of patient's lactate level. Discussed labs/temps/admission. No new orders currently. Informed already fluids and blood cultures pending. 0122 States relief from pain/nausea meds. Pain down to 6/10 from a 9/10. Ambien given for sleep aid, denies any other needs currently. 0210 Informed NOM Mateo Schultz of patient being a rule out C-diff as patient told Hospitalist FROZEN YOGURT MAKER she's had more than 3 liquid stools in 24 hours (none since being here) and patient having a roommate currently. Even though FROZEN YOGURT MAKER initially said contact precautions were not needed, decided with NOM and other RN's that it would be in everyone's best interests to move the roommate down to [address]. 0330 Rounded on patient, sleeping at this time. Respirations even/unlabored, no signs of acute distress, bed locked in lowest position with call light in reach. 0528 Patient asleep at this time. IVF infusing through patent IV, respirations even/unlabored, will continue to monitor closely. Still no stool to sample for c-diff test. This note was completed by: Juan Miguel Posada RN HISTORY PHYSICAL Observed: 06/21/2017 Status: COMPLETED Source: [place] 11:05 PM CLINIC OTHER CAMPUS REPOSITORY HNO ID: [id number] Author: Zonia Orozco Service: Hospital Medicine Author Type: Nurse Practitioner Type: HANDP Filed: 06/21/2017 11:48 PM Note Text: Attestation signed by Ketan Erazo at 06/26/2017 4:11 PM Attending Note I have personally performed a face to face assessment of the patient and have reviewed the PA/SENIOR MORTGAGE UNDERWRITER note. My cuadra findings include: Agree w/ above Abdominal pain, unclear etiology Other additions or changes: None Signature: Ketan Erazo MD Date: 06/21/2017 Time: 2310 HOSPITAL MEDICINE HISTORY AND PHYSICAL EXAM PATIENT NAME: Yancy Shaw SERVICE DATE: 06/21/2017 SERVICE TIME: 11:06 PM Primary Care Physician: No Pcp NIGHT COVERAGE Page [phone] for any questions between 5.30p-7.30a ASSESSMENT AND PLAN Active Hospital Problems Diagnosis - Abdominal pain -report nausea vomiting diarrhea -zofran -pain management -IVF -liquid -abd CT neg for acute process -stool studies, r/o c.diff in light of diarrhea and recent antibiotic use -wbc nl, afebrile - Hyperglycemia -hx DM2 -no ketones in urine -hold oral medications -continue Insulin with SSI and accucheck -check HglA1C - Dehydration -probably related to volume depletion, vomiting and diarrhea -IVF -recheck CMP now - Acute cystitis without hematuria -recurrent UTI, recently treated for uti -symptomatic, burning, frequency -urine culture pending -IV rocephin daily - Elevated lactic acid level -trending down after IVF -recheck now and in am -hold all antihyperglycemic medications for now, continue insulin, not on metformin - Diabetes mellitus type 2, uncontrolled (HCC) -continue home insulin plus SSI -hgla1c -accuchecks -hold anti hyperglycemia medications in light of lactic acid elevation - Hypertension -continue home medications SUBJECTIVE CHIEF COMPLAINT: Abdominal pain, n/v/d HPI: This is a 51 year old female who presents with vomiting and diarrhea for 2 days. She states that she's had no fever. She states adamant generally hurts, no focal area that is more painful. She states that no one has been sick she's been around. She's had no traveling. She states she was on antibiotics about a month ago for urinary tract infection. She denies any chest pain or shortness of breath. States occasionally her heart rate will feel like it's elevated, but then she controls her breathing and it goes away. She states her blood sugars have been running good around 113 of recent. PAST MEDICAL HISTORY: PAST MEDICAL HISTORY Diagnosis Date - ADD (attention deficit disorder) - Anxiety and depression - Bipolar I disorder, most recent episode (or current) unspecified - Chronic headache - Chronic hepatitis (HCC) unidentified cause, elevated liver enzymes - Chronic pain due to injury left shoulder - Genital herpes - History of noncompliance with medical treatment - Hypertension - Hypertriglyceridemia - Seasonal allergies - Trigeminal neuralgia - Type II or unspecified type diabetes mellitus without mention of complication, not stated as uncontrolled - Vitamin D deficiency 2013 PAST SURGICAL HISTORY: PAST SURGICAL HISTORY Procedure Laterality Date - BREAST BIOPSY 2010 bilateral - DELIVERY ONLY 1987, 1993 , low cervical - LAPAROSCOPIC CHOLEYCYSTECTOMY 1991 Cholecystectomy, lap - LIGATE FALLOPIAN TUBE 1993 - LIVER BIOPSY 10/23/04 chronic hepatitis grade 2 stage 1 - PAST SURGICAL HISTORY OF 2014 bladder procedure FAMILY HISTORY: FAMILY HISTORY Problem Relation Age of Onset - Adopted: Yes - Family history unknown: Yes SOCIAL HISTORY: Social History Substance Use Topics - Smoking status: Never Smoker - Smokeless tobacco: Never Used - Alcohol use 1.5 oz/week 1 Glasses of Wine (5oz) per week MEDICATIONS: Reviewed ALLERGIES: ALLERGIES Allergen Reactions - Codeine Mental Status Change - Penicillins Hives, Swelling - Latex Rash REVIEW OF SYSTEM: PAIN ASSESSMENT: positive for abdominal pain, no history of chronic pain, or current treatment for a chronic pain condition. GENERAL: No weight loss, malaise or fevers. HEENT: Negative for frequent or significant headaches, No changes in hearing or vision, no nose bleeds or other nasal problems NECK: Negative for lumps, goiter, pain and significant neck swelling RESPIRATORY: Negative for cough, hemoptysis, wheezing or shortness of breath CARDIOVASCULAR: Negative for chest pain, leg swelling or palpitations. GI: positive nausea, vomiting, and diarrhea : positive for dysuria, frequency, no incontinence. MUSCULOSKELETAL: Negative for joint pain or swelling, back pain or muscle pain. SKIN: Negative for lesions, rash, and itching. PSYCH: Negative for sleep disturbance, mood disorder and recent psychosocial stressors. HEMATOLOGY/LYMPHOLOGY: Negative for prolonged bleeding, bruising easily or swollen nodes. ENDOCRINE: Negative for cold or heat intolerance, polyuria, polydipsia and goiter. NEURO: No history of headaches, syncope, paralysis, seizures or tremors OBJECTIVE PHYSICAL EXAM: BP 148/94 Pulse 94 Temp (Src) 98.8 (Oral) Resp 18 Ht 5' 4 (1.63m) Wt 180 lb 1.9 oz (81.7kg) SpO2 100% LMP 02/02/2006 BMI 30.90 kg/(m2). GENERAL: alert, no distress, cooperative SKIN: Skin color, texture, turgor normal. No rashes or lesions. HEAD/SINUSES: No significant findings. EYES: PERRLA and EOMI OROPHARYNX: Lips, mucosa, and tongue normal. Teeth and gums normal. Oropharynx normal. NECK: no jugulovenous distention, no carotid bruits, carotid pulse normal contour, supple BACK: Back symmetric, Normal curvature, ROM normal, No CVAT. LUNGS: Lungs clear to auscultation. Good diaphragmatic excursion. CARDIAC: normal S1 and S2; no rubs, murmurs, or gallops ABDOMEN: Abdomen soft, tender. BS normal. No masses or organomegaly. EXTREMITIES: Extremities normal. No deformities, edema, clubbing or skin discoloration. No ulcers NEURO: Reflexes normal and symmetric. Sensation grossly intact. Cranial nerves II-XII intact PULSES: 2+ radial, 2+ carotid DATA: Diagnostic tests reviewed for today's visit: Most recent labs Most recent imaging Most recent EKG CBC: WBC 10.5 06/21/2017 Hemoglobin 12.8 06/21/2017 Hematocrit 36.4 06/21/2017 Platelet Count 325 06/21/2017 CMP: Sodium 130 06/21/2017 Potassium 4.4 06/21/2017 BUN 49 06/21/2017 Creatinine 1.21 06/21/2017 Glucose 502 06/21/2017 Chloride 92 06/21/2017 CO2 23 06/21/2017 VTE Prophylaxis: Early Ambulation Disposition: Home Plan of care discussed with: Patient and RN SIGNATURE: Zonia Orozco CNP DATE: June 21, 2017 TIME: 11:06 PM ED NOTE Observed: 06/21/2017 Status: COMPLETED Source: [place] 10:12 PM [facility] HNO ID: [id number] Author: Polina Brambila RN Service: Emergency Medicine Author Type: Registered Nurse Type: ED Notes Filed: 06/21/2017 10:14 PM Note Text: Report to [facility], patient alert and in no distress at time of transfer. ED NOTE Observed: 06/21/2017 Status: COMPLETED Source: [place] 10:03 PM [facility] REPOSITORY HNO ID: [id number] Author: Milka Rivas RN Service: Emergency Medicine Author Type: Registered Nurse Type: ED Notes Filed: 06/21/2017 10:03 PM Note Text: Report given to Gordy Head and Polina Brambila Rn. ED NOTE Observed: 06/21/2017 Status: COMPLETED Source: [place] 10:03 PM [facility] RE[facility]IT[facility] HNO ID: [id number] Author: Milka Rivas RN Service: Emergency Medicine Author Type: Registered Nurse Type: ED Notes Filed: 06/21/2017 10:03 PM Note Text: Report given to [facility] nurse. ED NOTE Observed: 06/21/2017 Status: COMPLETED Source: [place] 9:17 PM [facility] REPOSITORY HNO ID: [id number] Author: Polina Chavez) HEMALATHA Brambila Service: Emergency Medicine Author Type: Registered Nurse Type: ED Notes Filed: 06/21/2017 9:17 PM Note Text: Elba called at [facility]. Eta 45mins - 1hour ED NOTE Observed: 06/21/2017 Status: COMPLETED Source: [place] 9:15 PM [facility] HNO ID: [id number] Author: Polina AbrahamRn) HEMALATHA Brambila Service: Emergency Medicine Author Type: Registered Nurse Type: ED Notes Filed: 06/21/2017 9:15 PM Note Text: Room 321-2 [facility] , Report [id number]. ED NOTE Observed: 06/21/2017 Status: COMPLETED Source: [place] 8:50 PM [facility] REPOSIT[facility] HNO ID: [id number] Author: Polina AbrahamRn) HEMALATHA Brambila Service: Emergency Medicine Author Type: Registered Nurse Type: ED Notes Filed: 06/21/2017 8:51 PM Note Text: Dr. Erazo accepts patient, will wait for bed assignment ED PROV NOTE Observed: 06/21/2017 Status: COMPLETED Source: [place] 8:41 PM [facility] HNO ID: [id number] Author: Mayra Zaman MD Service: Emergency Medicine Author Type: Physician Type: ED Provider Notes Filed: 06/22/2017 11:34 PM Note Text: ED Provider Note Patient Name: Yancy Shaw SERVICE DATE: 06/21/17 History Patient presents with: Vomiting HPI Comments: Brief exam prior to transfer and to document stability. History provided by: Patient (Dr. Rojas) meat team lead used: No PAST MEDICAL HISTORY Diagnosis Date - ADD (attention deficit disorder) - Anxiety and depression - Bipolar I disorder, most recent episode (or current) unspecified - Chronic headache - Chronic hepatitis (HCC) unidentified cause, elevated liver enzymes - Chronic pain due to injury left shoulder - Genital herpes - History of noncompliance with medical treatment - Hypertension - Hypertriglyceridemia - Seasonal allergies - Trigeminal neuralgia - Type II or unspecified type diabetes mellitus without mention of complication, not stated as uncontrolled - Vitamin D deficiency 2013 PAST SURGICAL HISTORY Procedure Laterality Date - BREAST BIOPSY 2009 bilateral - DELIVERY ONLY 1987, 1993 , low cervical - LAPAROSCOPIC CHOLEYCYSTECTOMY 1991 Cholecystectomy, lap - LIGATE FALLOPIAN TUBE 1993 - LIVER BIOPSY 10/23/04 chronic hepatitis grade 2 stage 1 - PAST SURGICAL HISTORY OF 2013 bladder procedure FAMILY HISTORY Problem Relation Age of Onset - Adopted: Yes - Family history unknown: Yes Social History Social History Main Topics - Smoking status: Never Smoker - Smokeless tobacco: Never Used - Alcohol use 1.5 oz/week 1 Glasses of Wine (5oz) per week - Drug use: No - Sexual activity: Yes Partners: Male control/ protection: Surgical, Tubal Ligation ALLERGIES Allergen Reactions - Codeine Mental Status Change - Penicillins Hives, Swelling - Latex Rash Review of Systems Reason unable to perform ROS: reviewed Dr. Rojas's notes. Physical Exam BP 178/68 Pulse 90 Temp (Src) 96.4 (Temporal Artery) Resp 18 Ht 5' 4 (1.63m) Wt 174 lb (78.9kg) SpO2 99% LMP 02/02/2006 BMI 29.85 kg/(m2). Physical Exam Constitutional: She is oriented to person, place, and time. She appears well-developed and well-nourished. No distress. HENT: Head: Normocephalic. Eyes: No scleral icterus. Neck: Neck supple. Cardiovascular: Normal rate. Pulmonary/Chest: Effort normal. No respiratory distress. Musculoskeletal: She exhibits no edema. Neurological: She is alert and oriented to person, place, and time. Skin: Skin is warm and dry. She is not diaphoretic. No erythema. Psychiatric: She has a normal mood and affect. Nursing note and vitals reviewed. Diagnostic Testing ED Labs Ordered and Reviewed CBC + AUTO DIFF (AK,AV,EU,FV,HL,TIM,MM,SP) - Abnormal; Notable for the following: Result Value Ref Range RBC 3.97 (*) 4.20 - 5.40 mil/cmm Hematocrit 36.4 (*) 37.0 - 47.0 % MCH 32.2 (*) 27.0 - 31.0 pg Seg. Neut. # 8.56 (*) 3.00 - 5.67 thou/cmm All other components within normal limits LACTIC ACID / LACTATE (AK,AV,EU,FV,HL,TIM,MM,SP) - Abnormal; Notable for the following: Lactic Acid 7.3 (*) 0.4 - 2.0 mEq/L All other components within normal limits COMPREHENSIVE METABOLIC PANEL (AK,AV,EU,FV,HL,TIM,MM,SP) - Abnormal; Notable for the following: Sodium 130 (*) 136 - 145 mEq/L Chloride 92 (*) 98 - 107 mEq/L Glucose 502 (*) 70 - 99 mg/dL BUN 49 (*) 7 - 25 mg/dL Creatinine 1.21 (*) 0.51 - 0.95 mg/dL Calcium 10.2 (*) 8.5 - 10.1 mg/dL Protein, Total 8.8 (*) 6.4 - 8.2 g/dL Alkaline Phosphatase 189 (*) 46 - 116 U/L BUN/CREATININE RATIO 41 (*) 10 - 20 All other components within normal limits LACTIC ACID / LACTATE (AK,AV,EU,FV,HL,TIM,MM,SP) - Abnormal; Notable for the following: Lactic Acid 4.3 (*) 0.4 - 2.0 mEq/L All other components within normal limits URINALYSIS WITH MICROSCOPIC (EU,FV,HL,TIM,MM,SP) - Abnormal; Notable for the following: Glucose, Urine 2+ (*) Negative Hemoglobin, Urine TRACE-LYSED (*) Negative Protein, Urine 1+ (*) Negative Leukocytes Esterase TRACE (*) Negative WBC, Urine 6-12 (*) 0 - 5 /hpf Bacteria Urine (Manual) MANY (*) None Yeast Urine MANY (*) None All other components within normal limits GLUCOSE, BLOOD (POC) - Abnormal; Notable for the following: GLUCOSE METER 166 (*) 70 - 99 mg/dL All other components within normal limits LACTIC ACID / LACTATE (AK,AV,EU,FV,HL,TIM,MM,SP) - Abnormal; Notable for the following: Lactic Acid 2.4 (*) 0.4 - 2.0 mEq/L All other components within normal limits GLUCOSE, BLOOD (POC) - Abnormal; Notable for the following: GLUCOSE METER 228 (*) 70 - 99 mg/dL All other components within normal limits TROPONIN I (AK) LIPASE BLOOD (AK,AV,EU,FV,HL,TIM,MM,SP) MDRD GFR GLUCOSE - ED(POC) URINALYSIS (AV,EU,FV,HL,TIM,MM,SP) INFLUENZA A AND B DIRECT ANTIGEN (AV,EU,FV,HL,TIM,MM,SP) CULTURE BLOOD (AK,AV,EU,FV,HL,TIM,MM,SP) CULTURE BLOOD (AK,AV,EU,FV,HL,TIM,MM,SP) URINE CULTURE (AK,AV,EU,FV,HL,TIM,MM,SP) Procedures Medical Decision Making / ED Course ED Course Patient accepted in change of shift from Dr. Rojas. This is a supplemental note Labs reviewed. Stable and improved now. Reviewed labs. Patient initially and reportedly accepted by physician at [place], then we were called and told not accepted. Ultimately accepted by Dr. Mtz at [facility] who discussed with me. Transfer forms to be completed. Encounter Diagnosis ICD-10-CM 1. Urinary tract infection with hematuria, site unspecified N39.0 R31.9 2. SIRS (systemic inflammatory response syndrome) (HCC) R65.10 3. Hyperglycemia R73.9 4. Abdominal pain, unspecified abdominal location R10.9 Plan The Patient was TRANSFERRED to: [facility] Condition at time of disposition: improved and stable SIGNATURE: MD Mayra Zuniga MD 06/22/17 2334 ED NOTE Observed: 06/21/2017 Status: COMPLETED Source: [place] 8:38 PM [facility] REPOSITORY HNO ID: [id number] Author: Polina AbrahamRn) HEMALATHA Brambila Service: Emergency Medicine Author Type: Registered Nurse Type: ED Notes Filed: 06/21/2017 8:39 PM Note Text: Dr. Erazo on the phone with Dr. Zaman ED NOTE Observed: 06/21/2017 Status: COMPLETED Source: [place] 8:35 PM [facility] REPOSITORY HNO ID: [id number] Author: Milka AbrhaamRn) Rob, RN Service: Emergency Medicine Author Type: Registered Nurse Type: ED Notes Filed: 06/21/2017 9:02 PM Note Text: Ceftriaxone infusion complete. IV flushes easily. Site stage 0. Pt resting comfortably on cart awaiting disposition. GLUCOSE METER Collected: 06/21/2017 Status: F Source: [facility] 8:16 PM HEALTH SYSTEM REPOSITORY TYPE CODE TESTS RESULT OUT OF REFERENCE UNITS RANGE LAB LGLUB(LOINC 70-99 mg/dL ) High Glucose Meter 228 Result Comment: NOTIFIED [place] [address] Performed By: #### LGLMT #### [facility] [address] [place], [place] [address] RAPID INFLUENZA A/B Collected: 06/21/2017 Status: F Source: [facility] 8:05 PM HEALTH SYSTEM REPOSITORY TYPE CODE TESTS RESULT OUT OF REFERENCE UNITS RANGE LAB LRFLU(LOIN Negative C) Rapid Influenza A/B See below Result Comment: Negative for influenza A and B. Performed By: #### LRFLU #### [facility] [address] [place], [place] [address] ED NOTE Observed: 06/21/2017 Status: COMPLETED Source: [place] 8:00 PM [facility] REPOSITORY HNO ID: [id number] Author: Polina AbrahamRn) HEMALATHA Brambila Service: Emergency Medicine Author Type: Registered Nurse Type: ED Notes Filed: 06/21/2017 8:00 PM Note Text: [facility] transfer line Dangelo called regarding transfer to [facility] ED NOTE Observed: 06/21/2017 Status: COMPLETED Source: [place] 7:57 PM [facility] REPOSITORY HNO ID: [id number] Author: Polina AbrahamRn) HEMALATHA Brambila Service: Emergency Medicine Author Type: Registered Nurse Type: ED Notes Filed: 06/21/2017 7:58 PM Note Text: Return call from [facility] Nursing cytology supervisor regarding bed, She states that she contacted Dr. Israel, who said that she is refusing acceptance. ED NOTE Observed: 06/21/2017 Status: COMPLETED Source: [place] 7:52 PM [facility] REPOSITORY HNO ID: [id number] Author: Polina AbrahamRn) HEMALATHA Brambila Service: Emergency Medicine Author Type: Registered Nurse Type: ED Notes Filed: 06/21/2017 7:52 PM Note Text: [facility] Nursing cytology supervisor called, states she will check on status of bed. ED NOTE Observed: 06/21/2017 Status: COMPLETED Source: [place] 6:59 PM [facility] REPOSITORY HNO ID: [id number] Author: Evelin AbrahamRn) HEMALATHA Hodge Service: Emergency Medicine Author Type: Registered Nurse Type: ED Notes Filed: 06/21/2017 6:59 PM Note Text: Pt accepted by DR Israel at [facility], waiting on bed assignment from [facility] ED NOTE Observed: 06/21/2017 Status: COMPLETED Source: [place] 6:51 PM [facility] REPOSITORY HNO ID: [id number] Author: Evelin AbrahamRn) HEMALATHA Hodge Service: Emergency Medicine Author Type: Registered Nurse Type: ED Notes Filed: 06/21/2017 6:52 PM Note Text: Call to [facility] nursing cytology supervisor, they are still waiting to hear back from the hospitalist ED NOTE Observed: 06/21/2017 Status: COMPLETED Source: [place] 5:14 PM [facility] REPOSITORY HNO ID: [id number] Author: Milka AbrahamRn) Rob, RN Service: Emergency Medicine Author Type: Registered Nurse Type: ED Notes Filed: 06/21/2017 5:15 PM Note Text: Pt alert and oriented. Pt resting on left side. Blood cultures and lactic acid # 3 obtained per order and sent to lab. Pt tolerated well. at bedside LACTIC ACID Collected: 06/21/2017 Status: F Source: [facility] 5:05 PM HEALTH SYSTEM REPOSITORY TYPE CODE TESTS RESULT OUT OF REFERENCE UNITS RANGE LAB LLA(LOINC) 0.4-2.0 mEq/L High alert Lactic acid 2.4 Performed By: #### LLA #### [place] [address] Observed: 06/21/2017 Status: F Source: [facility] BLOOD 5:05 PM HEALTH SYSTEM REPOSITORY Test performed at [facility] No growth Performed By: #### C_BLO #### [place] [address] Observed: 06/21/2017 Status: F Source: [facility] BLOOD 4:50 PM HEALTH SYSTEM REPOSITORY Test performed at [facility] No growth Performed By: #### C_BLO #### [place] [address] ED NOTE Observed: 06/21/2017 Status: COMPLETED Source: [place] 3:47 PM [facility] REPOSITORY HNO ID: [id number] Author: Milka AbrahamRn) Rob, RN Service: Emergency Medicine Author Type: Registered Nurse Type: ED Notes Filed: 06/21/2017 3:51 PM Note Text: Bedside glucose 166. latic acid drawn and sent to lab. Pt tolerated well LACTIC ACID Collected: 06/21/2017 Status: F Source: [facility] 3:44 PM HEALTH SYSTEM REPOSITORY TYPE CODE TESTS RESULT OUT OF REFERENCE UNITS RANGE LAB LLA(LOINC) 0.4-2.0 mEq/L High alert Lactic acid 4.3 Performed By: #### LLA #### [facility] [address] [place] [id number] GLUCOSE METER Collected: 06/21/2017 Status: F Source: [facility] 3:42 PM HEALTH SYSTEM REPOSITORY TYPE CODE TESTS RESULT OUT OF REFERENCE UNITS RANGE LAB LGLUB(LOINC 70-99 mg/dL ) High Glucose Meter 166 Result Comment: MD NOTIFIED Testing performed at [address] [address] Performed By: #### LGLMT #### [facility] [address] [place], [place] [address] CT ABDOMEN AND PELVIS Observed: 06/21/2017 Status: F Source: [facility] WITH CONTRAST 2:55 PM HEALTH SYSTEM REPOSITORY Performed at [facility] APPROVED BY: Jer Villarreal MD EXAMINATION: CT ABDOMEN AND PELVIS WITH IV CONTRAST CLINICAL HISTORY: Abdominal pain. TECHNIQUE: CT of the abdomen and pelvis was performed using standard technique, scanning from just above the dome of the diaphragm to the symphysis pubis. M: CTAP_3 Contrast: IV: 150 ml of Omnipaque 300 Oral: None CT Radiation dose: Integrated Dose-length product (DLP) for this visit = 1410.76 mGy*cm. CT Dose Reduction Employed: Automated exposure control (AEC) was used. COMPARISON: CT abdomen and pelvis without contrast 10/30/2016. RESULT: Liver: No mass. Biliary: No bile duct dilation. Gallbladder surgically absent. Spleen: No mass. Spleen is upper limits of normal in size. Pancreas: No mass or duct dilation. Adrenals: No mass. Kidneys: There are 2 nonobstructing right renal calculi GI tract: The appendix is within normal limits. The large and small bowel loops are within normal limits. Lymph nodes: No abdominal or pelvic lymphadenopathy. Mesentery/Peritoneum: No ascites or mass. Retroperitoneum: No mass. Vasculature: The celiac axis and SMA are patent. The portal vein and branches, splenic vein, SMV, and hepatic veins are patent. No abdominal aortic or iliac artery aneurysm. Pelvis: No mass, ascites or fluid collection. No urinary bladder calculi. The uterus and adnexa are within normal limits. Bones/Soft Tissues: No suspicious destructive osseous lesion. Lower thorax: The visualized lung bases are clear. IMPRESSION: No evidence of acute process in abdomen or pelvis. There are 2 very small obstructing right renal calculi. Prior cholecystectomy. ED NOTE Observed: 06/21/2017 Status: COMPLETED Source: [place] 2:09 PM [facility] REPOSITORY HNO ID: [id number] Author: Polina (Rn) HEMALATHA Brambila Service: Emergency Medicine Author Type: Registered Nurse Type: ED Notes Filed: 06/21/2017 2:10 PM Note Text: Patient up to BR, complaining of nausea and pain, MD notified and orders received. UA collected. URINALYSIS ROUTINE Collected: 06/21/2017 Status: F Source: [facility] 2:06 PM HEALTH SYSTEM REPOSITORY TYPE CODE TESTS RESULT OUT OF RANGE REFERENCE UNITS LAB LCOLR(LOIN C) Urine Color YELLOW LAB LAPPU(LOIN C) Urine Appearance 3+ (CLOUDY) LAB LGLUR(LOIN Negative C) Abnormal Glucose Urine 2+ LAB LKETO(LOIN Negative C) Ketone Urine NEGATIVE LAB LHGBU(LOIN Negative C) Abnormal Hemoglobin,Urin TRACE-LYSED e LAB LPRTU(LOIN Negative C) Abnormal Protein Urine 1+ LAB LNITR(LOIN Negative C) Nitrites Urine NEGATIVE LAB LBILU(LOIN Negative C) Bilirubin Urine NEGATIVE LAB LSPG(LOINC 1.005-1.030 ) Specific 1.015 [place], Ur LAB LPHUR(LOIN 5.0-8.0 C) pH,Urine 7.0 LAB LUROB(LOIN 0.0-1.0 EU/dL C) Urobilinogen,Ur 0.2 LAB LLEUK(LOIN Negative C) Abnormal Leukocytes TRACE Esterase LAB LWBCU(LOIN 0-5 /hpf C) WBC, Abnormal Urine 6-12 LAB LRBCU(LOIN 0-3 /hpf C) RBC,Urine NONE LAB LEPIT(LOIN 0-5 /hpf C) Ep Cells Urine 0-2 LAB LBACT(LOIN None C) Abnormal Bacteria Urine MANY LAB LYEST(LOIN None C) Yeast Abnormal Urine MANY Performed By: #### LURIN #### [place] [address] Observed: 06/21/2017 Status: F Source: [facility] CULT URINE 2:06 PM HEALTH SYSTEM REPOSITORY Test performed at [facility] ORGANISM: Enterococcus faecalis (ID: 1) >100,000 CFU/ml Performed By: #### C_URI #### [facility] [address] [place] [id number] CHEST SINGLE VIEW Observed: 06/21/2017 Status: F Source: [facility] 12:59 PM HEALTH SYSTEM REPOSITORY Performed at [facility] APPROVED BY: Geovany Zuniga MD EXAMINATION: CHEST RADIOGRAPH (SINGLE VIEW AP OR PA) Clinical History: Epigastric pain M: XC1_3 Comparison: 10/30/2016 RESULT: Lines, tubes, and devices: None. Lungs and pleura: No consolidation. No lung mass. No pleural effusion. Cardiomediastinal silhouette: Normal cardiomediastinal silhouette. Other: IMPRESSION: No acute radiographic abnormality. ED PROV NOTE Observed: 06/21/2017 Status: COMPLETED Source: [place] 12:53 PM [facility] REPOSITORY HNO ID: [id number] Author: Charleen Perry DO Service: Emergency Medicine Author Type: Physician Type: ED Provider Notes Filed: 06/21/2017 7:53 PM Note Text: ED Provider Note Patient Name: Yancy Shaw SERVICE DATE: 06/21/17 History Patient presents with: Vomiting HPI Comments: Patient presents with vomiting and diarrhea for 2 days. She states that she's had no fever. She states adamant generally hurts, no focal area that is more painful. She states that no one has been sick she's been around. She's had no traveling. She states she was on antibiotics about a month ago for urinary tract infection. She denies any chest pain or shortness of breath. States occasionally her heart rate will feel like it's elevated, but then she controls her breathing and it goes away. She states her blood sugars have been running good around 113 of recent. Patient is a 51 year old female presenting with vomiting. History provided by: Patient meat team lead used: No Vomiting Severity: Moderate Duration: 2 days Timing: Constant Number of daily episodes: Multiple Quality: Unable to specify Able to tolerate: Liquids and solids Progression: Unchanged Chronicity: New Context: not post-tussive and not self-induced Relieved by: Nothing Worsened by: Ice chips and liquids Ineffective treatments: Ice chips and liquids Associated symptoms: abdominal pain and diarrhea Associated symptoms: no arthralgias, no chills, no cough, no fever, no headaches, no myalgias, no sore throat and no URI Risk factors: diabetes PAST MEDICAL HISTORY Diagnosis Date - ADD (attention deficit disorder) - Anxiety and depression - Bipolar I disorder, most recent episode (or current) unspecified - Chronic headache - Chronic hepatitis (HCC) unidentified cause, elevated liver enzymes - Chronic pain due to injury left shoulder - Genital herpes - History of noncompliance with medical treatment - Hypertension - Hypertriglyceridemia - Seasonal allergies - Trigeminal neuralgia - Type II or unspecified type diabetes mellitus without mention of complication, not stated as uncontrolled - Vitamin D deficiency 2013 PAST SURGICAL HISTORY Procedure Laterality Date - BREAST BIOPSY 2009 bilateral - DELIVERY ONLY 1987, 1993 , low cervical - LAPAROSCOPIC CHOLEYCYSTECTOMY 1991 Cholecystectomy, lap - LIGATE FALLOPIAN TUBE 1993 - LIVER BIOPSY 10/23/04 chronic hepatitis grade 2 stage 1 - PAST SURGICAL HISTORY OF 2013 bladder procedure FAMILY HISTORY Problem Relation Age of Onset - Adopted: Yes - Family history unknown: Yes Social History Social History Main Topics - Smoking status: Never Smoker - Smokeless tobacco: Never Used - Alcohol use 1.5 oz/week 1 Glasses of Wine (5oz) per week - Drug use: No - Sexual activity: Yes Partners: Male control/ protection: Surgical, Tubal Ligation ALLERGIES Allergen Reactions - Codeine Mental Status Change - Penicillins Hives, Swelling - Latex Rash Review of Systems Constitutional: Negative for chills and fever. HENT: Negative for drooling, sore throat and trouble swallowing. Eyes: Negative for pain and redness. Respiratory: Negative for cough and shortness of breath. Cardiovascular: Positive for palpitations. Negative for chest pain and leg swelling. Gastrointestinal: Positive for abdominal pain, diarrhea and vomiting. Negative for blood in stool. Genitourinary: Negative for dysuria and hematuria. Musculoskeletal: Negative for arthralgias, back pain, myalgias and neck pain. Skin: Negative for rash. Allergic/Immunologic: Negative for immunocompromised state. Neurological: Negative for weakness and headaches. Psychiatric/Behavioral: Negative for confusion and suicidal ideas. Physical Exam BP 180/69 Pulse 98 Temp (Src) 96.4 (Temporal Artery) Resp 20 Ht 5' 4 (1.63m) Wt 174 lb (78.9kg) SpO2 100% LMP 02/02/2006 BMI 29.85 kg/(m2). Physical Exam Constitutional: She is oriented to person, place, and time. Vital signs are normal. She appears well-developed and well-nourished. Non-toxic appearance. No distress. HENT: Head: Normocephalic and atraumatic. Right Ear: Tympanic membrane normal. Left Ear: Tympanic membrane normal. Nose: Nose normal. Mouth/Throat: Uvula is midline, oropharynx is clear and moist and mucous membranes are normal. Eyes: Conjunctivae, EOM and lids are normal. Pupils are equal, round, and reactive to light. Neck: Trachea normal and normal range of motion. Neck supple. No JVD present. No spinous process tenderness and no muscular tenderness present. Cardiovascular: Normal rate, regular rhythm, normal heart sounds, intact distal pulses and normal pulses. Pulmonary/Chest: Effort normal and breath sounds normal. No accessory muscle usage or stridor. No respiratory distress. She has no wheezes. Abdominal: Soft. Normal appearance and bowel sounds are normal. She exhibits no distension. There is generalized tenderness. There is no rigidity, no rebound, no guarding, no CVA tenderness, no tenderness at McBurney's point and negative Sullivan's sign. Musculoskeletal: Normal range of motion. She exhibits no edema. Neurological: She is alert and oriented to person, place, and time. She has normal strength. No cranial nerve deficit or sensory deficit. GCS eye subscore is 4. GCS verbal subscore is 5. GCS motor subscore is 6. Skin: Skin is warm, dry and intact. No lesion and no rash noted. Psychiatric: She has a normal mood and affect. Her speech is normal and behavior is normal. Nursing note and vitals reviewed. Diagnostic Testing ED Labs Ordered and Reviewed CBC + AUTO DIFF (AK,AV,EU,FV,HL,TIM,MM,SP) - Abnormal; Notable for the following: Result Value Ref Range RBC 3.97 (*) 4.20 - 5.40 mil/cmm Hematocrit 36.4 (*) 37.0 - 47.0 % MCH 32.2 (*) 27.0 - 31.0 pg Seg. Neut. # 8.56 (*) 3.00 - 5.67 thou/cmm All other components within normal limits LACTIC ACID / LACTATE (AK,AV,EU,FV,HL,TIM,MM,SP) - Abnormal; Notable for the following: Lactic Acid 7.3 (*) 0.4 - 2.0 mEq/L All other components within normal limits COMPREHENSIVE METABOLIC PANEL (AK,AV,EU,FV,HL,TIM,MM,SP) - Abnormal; Notable for the following: Sodium 130 (*) 136 - 145 mEq/L Chloride 92 (*) 98 - 107 mEq/L Glucose 502 (*) 70 - 99 mg/dL BUN 49 (*) 7 - 25 mg/dL Creatinine 1.21 (*) 0.51 - 0.95 mg/dL Calcium 10.2 (*) 8.5 - 10.1 mg/dL Protein, Total 8.8 (*) 6.4 - 8.2 g/dL Alkaline Phosphatase 189 (*) 46 - 116 U/L BUN/CREATININE RATIO 41 (*) 10 - 20 All other components within normal limits LACTIC ACID / LACTATE (AK,AV,EU,FV,HL,TIM,MM,SP) - Abnormal; Notable for the following: Lactic Acid 4.3 (*) 0.4 - 2.0 mEq/L All other components within normal limits URINALYSIS WITH MICROSCOPIC (EU,FV,HL,TIM,MM,SP) - Abnormal; Notable for the following: Glucose, Urine 2+ (*) Negative Hemoglobin, Urine TRACE-LYSED (*) Negative Protein, Urine 1+ (*) Negative Leukocytes Esterase TRACE (*) Negative WBC, Urine 6-12 (*) 0 - 5 /hpf Bacteria Urine (Manual) MANY (*) None Yeast Urine MANY (*) None All other components within normal limits GLUCOSE, BLOOD (POC) - Abnormal; Notable for the following: GLUCOSE METER 166 (*) 70 - 99 mg/dL All other components within normal limits LACTIC ACID / LACTATE (AK,AV,EU,FV,HL,TIM,MM,SP) - Abnormal; Notable for the following: Lactic Acid 2.4 (*) 0.4 - 2.0 mEq/L All other components within normal limits TROPONIN I (AK) LIPASE BLOOD (AK,AV,EU,FV,HL,TIM,MM,SP) MDRD GFR GLUCOSE - ED(POC) URINALYSIS (AV,EU,FV,HL,TIM,MM,SP) CULTURE BLOOD (AK,AV,EU,FV,HL,TIM,MM,SP) CULTURE BLOOD (AK,AV,EU,FV,HL,TIM,MM,SP) URINE CULTURE (AK,AV,EU,FV,HL,TMI,MM,SP) Procedures Medical Decision Making / ED Course ED Course labs, imaging, fluids, antiemetics and pain medication were ordered. Lactic elevated, as well as glucose. Insulin, fluids, and repeat lactic ordered. Patient's lactic acid is improving with fluids. She is starting to feel better as well. Her blood sugars also improved. Patient has a urinary infection, I have ordered blood cultures as well as urine cultures. I ordered a dose of Rocephin. I discussed admission with the patient and she wants to go to [facility]. Dr. Israel physician from [facility] accepted the patient for transfer/admission. Encounter Diagnosis ICD-10-CM 1. Urinary tract infection with hematuria, site unspecified N39.0 R31.9 2. SIRS (systemic inflammatory response syndrome) (HCC) R65.10 3. Hyperglycemia R73.9 4. Abdominal pain, unspecified abdominal location R10.9 Plan The Patient was TRANSFERRED to: [place] Condition at time of disposition: stable SIGNATURE: Charleen Perry DO EKG Interpretation: RHYTHM: Normal sinus rhythm at 95 beats per minute AXIS: Normal axis INTERVALS: Normal NE interval QRS COMPLEX: Normal ST SEGMENT: Normal ST-T segments QT INTERVAL: Normal COMPARED WITH PRIOR: unchanged Charleen Perry DO 06/21/171952 ED NOTE Observed: 06/21/2017 Status: COMPLETED Source: [place] 12:50 PM [facility] [place] REPOSITORY HNO ID: [id number] Author: Milka (Rn) HEMALATHA Rivas Service: Emergency Medicine Author Type: Registered Nurse Type: ED Notes Filed: 06/21/2017 12:51 PM Note Text: Pt alert and oriented. resps easy. IV started and labs drawn per order. Pt ambulates without difficulty. at bedside HEMOGRAM/DIFF Collected: 06/21/2017 Status: F Source: [facility] 12:37 PM [facility] REPOSITORY TYPE CODE TESTS RESULT OUT OF REFERENCE UNITS RANGE LAB LWBC(LOINC 4.8-10.8 thou/cmm ) WBC 10.5 LAB LRBC(LOINC 4.20-5.40 mil/cmm ) Low RBC 3.97 LAB LHGB(LOINC 12.0-16.0 g/dL ) Hgb 12.8 LAB LHCT(LOINC 37.0-47.0 % ) Low Hct 36.4 LAB LMCV(LOINC 81.0-99.0 fl ) MCV 91.7 LAB LMCH(LOINC 27.0-31.0 pg ) MCH High 32.2 LAB LMCHC(LOIN 32.0-36.0 % C) MCHC 35.2 LAB LRDW(LOINC 11.5-15.9 % ) RDW 12.3 LAB LPLT(LOINC 150-400 thou/cmm ) Platelet 325 LAB LMPV(LOINC 7.1-10.5 fl ) MPV 9.6 LAB LSEGT(LOIN % C) Seg Neutrophil 81.5 LAB LLYMP(LOIN % C) Lymphocyte 14.4 LAB LMNO(LOINC % ) Monocyte 4.0 LAB KATELYN(LOINC % ) Eosinophil 0.0 LAB LBASO(LOIN % C) Basophil 0.1 LAB LSEGN(LOIN 3.00-5.67 thou/cmm C) Abs. High Neut 8.56 LAB LLYMN(LOIN 1.50-3.65 thou/cmm C) Abs. Lymph 1.51 LAB LMONN(LOIN 0.20-1.00 thou/cmm C) Abs. [place] 0.42 LAB LEOSN(LOIN 0.00-0.41 thou/cmm C) Abs. Eosin 0.00 LAB LBASN(LOIN 0.00-0.08 thou/cmm C) Abs. Baso 0.01 Performed By: #### LCBCD #### [place] [address] TROPONIN I Collected: 06/21/2017 Status: F Source: [facility] 12:37 PM HE[facility] SYSTEM REPOSITORY TYPE CODE TESTS RESULT OUT OF REFERENCE UNITS RANGE LAB LTRP(LOINC) <=0.07 ng/mL Troponin I <0.03 Performed By: #### LTRP #### [place] [address] LIPASE BLOOD Collected: 06/21/2017 Status: F Source: [facility] 12:37 PM [facility] SYSTEM REPOSITORY TYPE CODE TESTS RESULT OUT OF REFERENCE UNITS RANGE LAB LLIP(LOINC) 73-393 U/L Lipase Blood 346 Performed By: #### LLIP #### [facility] [address] [place] [id number] COMPREHENSIVE PANEL Collected: 06/21/2017 Status: F Source: [facility] 12:37 PM [facility] SYSTEM REPOSITORY TYPE CODE TESTS RESULT OUT OF REFERENCE UNITS RANGE LAB TRACTOR OPERATOR HELPER(LOINC) 136-145 mEq/L Low Sodium Blood 130 LAB LK(LOINC) 3.5-5.1 mEq/L Potassium Blood 4.4 LAB LCL(LOINC) 98-107 mEq/L Low Chloride Blood 92 LAB LCO2(LOINC 21-32 mEq/L ) CO2 Blood 23 LAB LGLU(LOINC 70-99 mg/dL ) Glucose High alert Blood 502 LAB LBUN(LOINC 7-25 mg/dL ) BUN Blood High 49 LAB LCREA(LOIN 0.51-0.95 mg/dL C) Creatinine High Blood 1.21 LAB LCA(LOINC) 8.5-10.1 mg/dL Calcium High Blood 10.2 LAB LALB(LOINC 3.4-5.0 g/dL ) Albumin Blood 4.2 LAB LTP(LOINC) 6.4-8.2 g/dL Total High Protein 8.8 LAB LAST(LOINC 15-37 U/L ) AST-SGOT Blood 16 LAB LALT(LOINC 12-78 U/L ) ALT-SGPT Blood 47 LAB LALKP(LOIN 46-116 U/L C) Alk High Phosphatase 189 LAB LBILT(LOIN 0.2-1.0 mg/dL C) Total Bilirubin 0.5 LAB LANGP(LOIN 8-20 C) Anion Gap 19 LAB LBNCR(LOIN 10-20 C) High BUN/Creatinine 41 Ratio Performed By: #### LP14 #### [facility] [address] [place] [id number] MDRD EGFR Collected: 06/21/2017 Status: F Source: [facility] 12:37 PM HEALTH SYSTEM REPOSITORY TYPE CODE TESTS RESULT OUT OF RANGE REFERENCE UNITS LAB LGFRF(LOINC >60mL/min/1.73m ) 2 eGFR 49.33 Result Comment: If the patient is , multiply the result by 1.210. Performed By: #### LGFR #### [facility] [address] [place] [address] LACTIC ACID Collected: 06/21/2017 Status: F Source: [facility] 12:37 PM [facility] SYSTEM REPOSITORY TYPE CODE TESTS RESULT OUT OF REFERENCE UNITS RANGE LAB LLA(LOINC) 0.4-2.0 mEq/L High alert Lactic acid 7.3 Performed By: #### LLA #### [facility] [address] [place] [address] ED NOTE Observed: 06/21/2017 Status: COMPLETED Source: [place] 12:27 PM [facility] RE[facility] HNO ID: [id number] Author: Abelino AbrahamRn) HEMALATHA Mosqueda Service: Emergency Medicine Author Type: Registered Nurse Type: ED Notes Filed: 06/21/2017 12:28 PM Note Text: Pt describes nausea, vomiting and diarrhea for 2 days. Pt states no improvement. Also c/o hot and cold flashes. MALBR Collected: 06/09/2017 Status: F Source: [facility] 6:30 PM [facility] REPOSITORY TYPE CODE TESTS RESULT OUT OF REFERENCE UNITS RANGE LAB CRU(LOINC) mg/dL U Creatinine 49.8 LAB MRUR(LOINC mcg/dL ) U Microalb 3360 LAB RMAL(LOINC 0.0-24.9 mcg/mg ) U Ratio High Alb/Cre 67.5 Performed By: #### MALBR #### [facility] [address] [place] [address] 12 LEAD ELECTROCARDIOGRAM Observed: 06/09/2017 Status: F Source: [place] 2:53 PM [facility] [place] [facility] Cardiovascular Services [address] [place] [address] 12 Lead EKG 06/03/17 1924 MR#: [id number] Acct: [id number] Name: YANCY SHAW Rep #: [id number] : 1965 51 From: Joseph Yost MD Attending Dr: Krishna Del Castillo DO Status: DIS IN Ordering Dr: Edwina Lloyd MD Date: 06/03/17 Location: ICU Sex: F C Admitted: 06/03/17 Test Reason : Blood Pressure : / mmHG Vent. Rate : 076 BPM Atrial Rate : 076 BPM P-R Int : 194 ms QRS Dur : 084 ms QT Int : 414 ms P-R-T Axes : 040 016 042 degrees QTc Int : 465 ms Normal sinus rhythm Normal ECG Confirmed by EFRA TELLEZ, JOSEPH ([id number]), photograph editor JOHANA LOYA ([id number]) on 06/09/2017 2:53:11 PM Referred By: CHAVA Confirmed By:JOSEPH YOST MD 06/09/17 1453 Date Joseph Yost MD CC: Simone Grey MD Signed T4 Collected: 06/09/2017 Status: F Source: [facility] 7:42 AM [facility] REPOSITORY TYPE CODE TESTS RESULT OUT OF RANGE REFERENCE UNITS LAB T4(LOINC) 4.7-11.4 mcg/dL High T4 14.7 Result Comment: Please note ? as of 01/02/17 new pediatric reference intervals were added for this test. Performed By: #### T4, TSH, T3, A1C #### [address] [address] TSH Collected: 06/09/2017 Status: F Source: [facility] 7:42 AM [facility] REPOSITORY TYPE CODE TESTS RESULT OUT OF RANGE REFERENCE UNITS LAB TSH(LOINC) 0.360-3.740 mcIU/mL TSH 2.000 Result Comment: Please note ? as of 01/02/17 new pediatric reference intervals were added for this test. Performed By: #### T4, TSH, T3, A1C #### [address] [address] T3 Collected: 06/09/2017 Status: F Source: [facility] 7:42 AM [facility] REPOSITORY TYPE CODE TESTS RESULT OUT OF RANGE REFERENCE UNITS LAB T3(LOINC) 60-181 ng/dL Total T3 111 Result Comment: Please note ? as of 01/02/17 new pediatric reference intervals were added for this test. Performed By: #### T4, TSH, T3, A1C #### [address] [address] A1C Collected: 06/09/2017 Status: F Source: [facility] 7:42 AM [facility] REPOSITORY TYPE CODE TESTS RESULT OUT OF RANGE REFERENCE UNITS LAB A1C(LOINC) 4.0-6.0 % High Hgb A1c 9.4 Performed By: #### T4, TSH, T3, A1C #### [facility] [address] [place] [address] BEDSIDE GLUCOSE Collected: 06/04/2017 Status: F Source: [place] 4:34 AM [facility] [place] TYPE CODE TESTS RESULT OUT OF REFERENCE UNITS RANGE LAB L501.080 70-110 mg/dL High BEDSIDE GLU 297 Result Comment: MANAGEMENT OF PATIENT CARE PER NURSING PROTOCOL Performed By: #### L501.080 #### [facility] Point of Care [address] [facility] [place] [address] CBC-COMPLETE BLOOD CNT Collected: 06/04/2017 Status: F Source: [place] NO DIFF 3:54 AM [facility] [place] TYPE CODE TESTS RESULT OUT OF RANGE REFERENCE UNITS LAB L100.1000 4.4-11.0 K/mm3 Normal WBC 9.7 LAB L100.1200 4.2-5.4 M/mm3 Low RBC 3.44 LAB L100.1300 12.0-15.0 g/dl Low HGB 11.2 LAB L100.1400 37-47 % Low HCT 31.2 LAB L100.1500 81-99 fL Normal MCV 90.7 LAB L100.1600 27.0-32.0 pg High MCH 32.6 LAB L100.1700 32-36 g/gl Normal MCHC 35.9 LAB L100.1810 11.6-14.6 % Normal RDW CV 11.9 LAB L100.1820 35.1-43.9 fl Normal RDW SD 37.7 LAB L100.1900 150-450 K/mm3 Normal PLT 245 LAB L100.2000 6.2-12.0 fl Normal MPV 9.7 Performed By: #### L100.0500 #### [facility] [address] [facility] [place], [address] BEDSIDE GLUCOSE Collected: 06/04/2017 Status: F Source: [place] 3:28 AM [facility] TYPE CODE TESTS RESULT OUT OF REFERENCE UNITS RANGE LAB L501.080 70-110 mg/dL High BEDSIDE GLU 369 Result Comment: MANAGEMENT OF PATIENT CARE PER NURSING PROTOCOL Performed By: #### L501.080 #### [facility] Point of Care [address] [place] [address] BEDSIDE GLUCOSE Collected: 06/04/2017 Status: F Source: [place] 1:59 AM [facility] TYPE CODE TESTS RESULT OUT OF REFERENCE UNITS RANGE LAB L501.080 70-110 mg/dL High BEDSIDE GLU 427 Result Comment: MANAGEMENT OF PATIENT CARE PER NURSING PROTOCOL Performed By: #### L501.080 #### [facility] Point of Care [address] [place] [address] HISTORY AND PHYSICAL Observed: 06/04/2017 Status: F Source: [place] EXAM 1:38 AM [facility] [place] [facility] Medical Records Department [address] [place] [address] History and Physical 06/03/179 MR#: [id number] Acct: [id number] Name: YANCY SHAW Rep #: [id number] : 1965 51 From: Darline Penaloza MD PCP: Simone Grey MD Status: ADM TANYA Y Location: ICU ICU03-1 ADDENDUM by Darline Penaloza MD on 06/04/17 at 0138 Code Visit Embolic acidosis 06/04/17 0138 <Electronically signed by Darline Penaloza MD> Date Darline Penaloza MD cc: Darline Penaloza MD; Simone Grey MD * Signed ADDENDUM by Darline Penaloza MD on 06/04/17 at 0117 Code Visit Inpatient E AND M: [id number] Init Hosp L3 06/04/17 0117 <Electronically signed by Darline Penaloza MD> Date Darline Penaloza MD cc: aDrline Penaloza MD; Simone Grey MD * Signed Problem List (1) Abdominal pain Status: Chronic (2) Hypokalemia Status: Chronic (3) Hypomagnesemia Status: Chronic (4) Diabetes Status: Chronic (5) Anxiety Status: Acute History of Present Illness Date of Admission: 06/03/17 The patient is a 51 year old F with past medical history of diabetes type 2, essential hypertension , anxiety and dyslipidemia who seen in the emergency room on account of acute mental status changes , she apparently ingested several tablets of her prescription Xanax in addition to an unknown substances suspected to be moonshine in an apparent suicide attempt. On arrival to the emergency room she stated she wanted to , she says she took the pills on propose to kill herself. In the Emergency room her brain CT was none acute, her glucose was 636, sodium was 124, potassium 5.4, bicarb 19 , osmolarity 333. Her urinalysis is evident for pyuria, urine tox screen is positive for benzodiazepines. When I saw her in the emergency room she was somnolent but alert and oriented to time place the patient, orientation questions appropriately and denied any suicidal ideation. Past Medical History Past Medical History (Chronic Problems): Chronic Problems Abdominal pain (Chronic) Hypokalemia (Chronic) Hypomagnesemia (Chronic) Diabetes (Chronic) Allergies latex Allergy (Verified 06/03/17 18:57) Unknown Penicillins Allergy (Verified 09/10/15 18:42) Laryngospasms Home Medications: Ambulatory Orders Medication Instructions Recorded ALPRAZolam [Xanax] 1 mg PO TID 09/10/15 Surgical History: - - colonoscopy, egd, explorotory lap Smoking Status: Unknown if ever smoked - *Family History Maternal History Items: Unknown Paternal History Items: Unknown Review of Systems Comment: All Systems were reviewed with pertinent positives mentioned in the HPI above. VTE Information - Inpt Only VTE Present on Admission: No VTE Mechan Device Prophylaxis: SCD's VTE Pharm Prophylaxis ordered?: Yes - Physical Exam General: Alert, Oriented x3 HEENT: Atraumatic Oral: Moist Mucosa Neck: Supple, No JVD Lungs: Clear to auscultation Cardiovascular: Regular rate, Normal S1, Normal S2 Abdomen: Bowel Sounds Present, Soft, Non Tender, Non-Distended Extremities: No clubbing, No edema Skin: No rashes, No breakdown Neurological: Cranial nerves II-XII grossly intact, Deep Tendon Reflexes 2+/4 and Symmetrical Vital Signs Temp Pulse Resp BP Pulse Ox 97 F L 84 26 H 103/84 H 100 06/03/17 18:38 06/03/17 20:03 06/03/17 20:03 06/03/17 20:03 06/03/17 20:03 Oxygen Delivery Method Room Air Weight: 99.1 kg Body Mass Index (BMI) 39.9 Laboratory Tests Past 24 Hrs WBC RBC Hgb Hct MCV MCH MCHC WBC POC Glucose POC Glucose > 500 H* Assessment/Plan 1. Acute toxic encephalopathy due to benzodiazepine overdose; we are going to admit her to the ICU for close monitoring, she is being hydrated with IV fluids. 2. Suicide attempt; when she is medically stable , she will be evaluated by behavioral health/psychiatry for possible inpatient psych admission. 3. DM type II with hyperglycemia; we will place her on insulin drip, we will hold off on her home insulin regimen at this time. 4. Hyponatremia; likely due to her hyperglycemia which should improve with treatment of #3. 5. Hyperkalemia the patient is receiving insulin drip which is likely to even make her hypokalemic and will monitor her electrolytes closely. 6. Acute cystitis ; we will place her on IV Rocephin. 7. DVT prophylaxis with subcutaneous heparin. 06/04/17 0044 <Electronically signed by Darline Penaloza MD> Date Darline Penaloza MD Cosigner Signature: Date (if applicable) CC: Darline Penaloza MD; Simone Grey MD Signed Dayanna R STAPH AUREUS Collected: 06/04/2017 Status: F Source: [place] DNA BY PCR 1:20 AM [facility] REPOSITORY TYPE CODE TESTS RESULT OUT OF RANGE REFERENCE UNITS LAB L8200.1100 Negative Normal MRSA Negative RESULT Performed By: #### L8200.1000 #### [facility] [address] [place], [place], [id number] BEDSIDE GLUCOSE Collected: 06/04/2017 Status: F Source: [place] 1:15 AM [facility] TYPE CODE TESTS RESULT OUT OF REFERENCE UNITS RANGE LAB L501.080 70-110 mg/dL High alert BEDSIDE GLU 457 Result Comment: Dr Orders Followed MANAGEMENT OF PATIENT CARE PER NURSING PROTOCOL Performed By: #### L501.080 #### [facility] Point of Care [address] [place], [place] [address] BEDSIDE GLUCOSE Collected: 06/03/2017 Status: F Source: [place] 11:22 PM [facility] TYPE CODE TESTS RESULT OUT OF REFERENCE UNITS RANGE LAB L501.080 70-110 mg/dL High alert BEDSIDE GLU > 500 Result Comment: Dr Orders Followed MANAGEMENT OF PATIENT CARE PER NURSING PROTOCOL Performed By: #### L501.080 #### [facility] Point of Care [address] [place] [address]. [place], [place] [address] TROPONIN-I Collected: 06/03/2017 Status: F Source: [place] 10:35 PM [facility] Order Comment: 'TROP' Serial specimen #1, #2, #3, or #4: 1 TYPE CODE TESTS RESULT OUT OF RANGE REFERENCE UNITS LAB L501.4010 <0.06 ng/mL Normal < 0.02 TROPONIN-I Result Comment: TROPONIN-I EXPECTED VALUES <0.05 NEGATIVE 0.06 - 0.59 AT RISK OF [place] > OR = 0.60 SUGGEST [place] Performed By: #### L501.4010 #### [facility] [address] [place], [place], [address] BLOOD GASES BY [facility] Collected: 06/03/2017 Status: F Source: [place] 7:41 PM [facility] TYPE CODE TESTS RESULT OUT OF RANGE REFERENCE UNITS LAB L9000.9990 Normal BLD GAS TYPE ART LAB L9001.1000 Normal SITE R Radial LAB L9001.1010 Normal LUZ TEST NA LAB L9001.1050 O2 Normal Delivery Dev Nasal Can LAB L9001.1055 /min Normal LPM 2.0 LAB L9001.1104 Normal Results To ED LAB L9001.1105 Normal Time Given 1945 LAB L9001.1110 7.35-7.45 Low pH - I-STAT 7.29 LAB L9001.1210 35-45 mmHg Normal pCO2 - ISTAT 35.7 LAB L9001.1310 75-100 mmHG Normal PO2 I-STAT 91 LAB L9001.2300 22-26 mmol/L Low HCO3 ISTAT 17.2 LAB L9001.2400 -2 to +2 mmol/L Low BE ISTAT -9 LAB L9001.2415 mmol/L Normal TOTAL CO2 18 ISTAT LAB L9001.2425 95-99 % Normal SO2 ISTAT 96 Performed By: #### L9000.0800 #### [facility] Point of Care [address] [place] [address] URINE DRUG SCREEN Collected: 06/03/2017 Status: F Source: [place] ([place]) 7:40 PM [facility] Order Comment: Has pt arrived? Y TYPE CODE TESTS RESULT OUT OF RANGE REFERENCE UNITS LAB L505.0075 TO BE Normal CONFIRMED Result Comment: CONFIRMATORY TESTING FOR ALL POSITIVE URINE DRUG SCREEN RESULTS WILL ONLY BE SENT OUT UPON PHYSICIAN ORDER. VISTA Urine Drug Screen methods provide only preliminary analytical test results. A more specific alternate chemical method must be used in order to obtain a confirmed analytical result. Gas chromatography/mass spectrometery (GC/MS) is the preferred confirmatory method. Clinical consideration and professional judgement should be applied to any drug of abuse test result, particularly when preliminary positive results are used. URINE TCA TESTING MUST BE ORDERED SEPARATELY. USE TEST MNEMONIC: [facility] LAB L505.5005 VISTA UDS PH 5 Normal LAB L505.5015 <1000 ng/mL AMPHETAMINES Normal NEGATIVE LAB L505.5025 < 200 ng/mL BARBITIURATES Normal NEGATIVE LAB L505.5035 < 200 High ng/mL BENZODIAZIPINE POSITIVE LAB L505.5045 < 300 ng/mL COCAINE Normal NEGATIVE LAB L505.5055 < 500 ng/mL ECSTACY Normal NEGATIVE LAB L505.5065 < 300 ng/mL METHADONE Normal NEGATIVE LAB L505.5075 < 300 ng/mL OPIATES Normal NEGATIVE LAB L505.5085 < 25 ng/mL PCP Normal NEGATIVE LAB L505.5095 < 50 ng/mL THC Normal NEGATIVE Performed By: #### L505.5000 #### [facility] [address] [place], [place], [address] ,URINE Collected: 06/03/2017 Status: F Source: [place] 7:40 PM [facility] [place] TYPE CODE TESTS RESULT OUT OF REFERENCE UNITS RANGE LAB L400.8000 Negative Normal HCGUQUAL Negative Result Comment: Very dilute urine specimens, as indicated by a low specific gravity, may not contain territory representative levels of hCG. If is still suspected, a first morning urine specimen should be collected 48 hours later and tested. Performed By: #### L400.7600 #### [facility] [address] [place], [place], [address] URINALYSIS, COMPLETE Collected: 06/03/2017 Status: F Source: [place] 7:40 PM [facility] [place] Order Comment: How was Urine Obtained? CLEAN CATCH TYPE CODE TESTS RESULT OUT OF RANGE REFERENCE UNITS LAB L400.3000 Yellow COLOR Normal Yellow LAB L400.3050 Clear Normal CLARITY Turbid LAB L400.3200 Normal mg/dl High GLUCOSE, UR 1000 LAB L400.3300 Negative mg/dL Normal BILIRUBIN URINE Negative LAB L400.3400 Negative mg/dl Normal KETONE UR Negative LAB L400.3465 1.002-1.030 Normal SP.GR. DIPSTX 1.020 LAB L400.3550 5.0 - 8.0 pH UR Normal 5.0 LAB L400.3600 Negative mg/dl High PROT 30 DIPSTX LAB L400.3700 Normal mg/dl Normal UROBILI Normal LAB L400.3750 Negative Normal NITRITE UR Negative LAB L400.3780 Negative /ul High OCCULT BLOOD-UR 150 LAB L400.3800 Negative /ul High LEUK ESTERASE 500 LAB L400.4050 0-5 /hpf WBC Normal >100 SEEN Result Comment: Microscopic field is filled. Other elements may be obscured. LAB L400.4100 0-5 /hpf Normal RBC-UA 0 SEEN LAB L400.4150 5-10 /hpf Normal SQUAM EPI 0 SEEN LAB L400.4300 None Seen /hpf Normal BACTERIA 3+ LAB L400.4350 <or=2+ /hpf Normal MUCUS, URINE 0 SEEN Performed By: #### L400.0001 #### [facility] [address] [place], [address] LACTIC ACID Collected: 06/03/2017 Status: F Source: [place] 7:10 PM [facility] [place] Order Comment: Yes/No query for Sepsis Lactate Rule Y TYPE CODE TESTS RESULT OUT OF RANGE REFERENCE UNITS LAB L503.6005 0.4-2.0 mmol/L Normal LACTIC ACID 1.0 Performed By: #### L503.6005 #### [facility] [address] [place], [address] CHEST 1 VIEW Observed: 06/03/2017 Status: F Source: [place] (PORTABLE) 7:01 PM [facility] [place] [facility] Imaging Services [address] [place] [address] Chest 1 View (Portable) MR#: [id number] Acct: [id number] Name: YANCY SHAW Rep #: [id number] : 1965 F 51 From: Froylan Jimenez DO PCP: Simone Grey MD Status: REG ER Study: Chest 1 View (Portable) Date of Exam: 06/03/17 Exam# [id number] Ordering Dr: Edwina Lloyd MD STUDY: X-RAY CHEST REASON FOR EXAM: Female, 51 years old. Overdose TECHNIQUE: Single frontal view COMPARISON: September 01, 2015 FINDINGS: The lungs are not fully expanded. There is basilar interstitial prominence/atelectasis. Normal size heart. Normal mediastinum and rianna. Normal visualized pulmonary arteries. Normal visualized aortic arch and descending thoracic aorta. Normal visualized thoracic spine. Normal visualized ribs, clavicles, and shoulders. There is no demonstrated abnormality of the visualized soft tissue structures of the upper abdomen. RAD/Chest 1 View (Portable) IMPRESSION: There is basilar interstitial prominence/atelectasis. Electronically Signed: Froylan Jimenez DO at 20:08 EST Tel [phone], Service support , CC: Edwina Lloyd MD; Simone Grey MD Smoke Eater: Signed BRAIN/HEAD WITHOUT Observed: 06/03/2017 Status: F Source: [place] CONTRAST 7:01 PM [facility] [place] [facility] Imaging Services [address] [place] [address] Brain/Head without Contrast MR#: [id number] Acct: [id number] Name: YANCY SHAW Rep #: [id number] : 1965 F 51 From: Froylan Jimenez DO PCP: Simone Grey MD Status: REG ER Study: Brain/Head without Contrast Date of Exam: 06/03/17 Exam# [id number] Ordering Dr: Edwina Lloyd MD STUDY: CT BRAIN WITHOUT CONTRAST REASON FOR EXAM: Female, 51 years old. Altered mental status RADIATION DOSAGE (If Supplied By Facility): CTDIvol = ( 44.99 ) mGy, DLP = ( 779.24 ) mGycm TECHNIQUE: Transaxial CT imaging of the brain was performed without administration of intravenous contrast material. Individualized dose optimization techniques were used for this CT. COMPARISON: January 03, 2006. FINDINGS: Normal soft tissue structures. Normal calvarium. Normal size ventricles and extra-axial spaces for the patient's age. Normal white matter tracts of the cerebral hemispheres. Normal basal ganglia and thalami. Normal brainstem. Normal cerebellum. There is no intracranial hemorrhage. There are no findings of an acute ischemic infarction. Normal visualized paranasal sinuses. CT/Brain/Head without Contrast IMPRESSION: Normal unenhanced CT scan of the brain. Electronically Signed: Froylan Jimenez DO at 20:13 EST Tel [phone], Service support , CC: Edwina Lloyd MD; Simone Grey MD Smoke Eater: Signed BEDSIDE GLUCOSE Collected: 06/03/2017 Status: F Source: [place] 6:57 PM [facility] [place] TYPE CODE TESTS RESULT OUT OF REFERENCE UNITS RANGE LAB L501.080 70-110 mg/dL High alert BEDSIDE GLU > 500 Result Comment: Orders Followed MANAGEMENT OF PATIENT CARE PER NURSING PROTOCOL Performed By: #### L501.080 #### [facility] Point [place] [address] CBC W/DIFF, AUTOMATED Collected: 06/03/2017 Status: F Source: [place] 6:50 PM [facility] [place] TYPE CODE TESTS RESULT OUT OF RANGE REFERENCE UNITS LAB L100.1000 4.4-11.0 K/mm3 Normal WBC 9.0 LAB L100.1200 4.2-5.4 M/mm3 Low RBC 3.88 LAB L100.1300 12.0-15.0 g/dl Normal HGB 12.4 LAB L100.1400 37-47 % Low HCT 35.9 LAB L100.1500 81-99 fL Normal MCV 92.5 LAB L100.1600 27.0-32.0 pg Normal MCH 32.0 LAB L100.1700 32-36 g/gl Normal MCHC 34.5 LAB L100.1810 11.6-14.6 % Normal RDW CV 12.4 LAB L100.1820 35.1-43.9 fl Normal RDW SD 41.8 LAB L100.1900 150-450 K/mm3 Normal PLT 236 LAB L100.2000 6.2-12.0 fl Normal MPV 9.8 LAB L100.2100 47-70 % High NEUT% 90.2 LAB L100.2200 19-41 % Low LY% 8.9 LAB L100.2300 0-10 % Normal MONO% 0.6 LAB L100.2400 0-5 % Normal EO% 0.1 LAB L100.2500 0-1 % Normal BASO% 0.0 LAB L100.2550 0.0-0.9 % Normal IM GRAN % 0.200 Result Comment: IG% - Immature Granulocytes (promyelocytes, myelocytes and metamyelocytes) > 1% indicates that a LEFT SHIFT is Present. LAB L100.2620 2.0-7.7 X10 3/uL High Absolute Neut 8.1 LAB L100.2720 0.83-4.51 X10 3/ul Low Absolute Lymph 0.80 Performed By: #### L100.0100 #### [facility] [address] [place], [place], [address] PROTHROMBIN TIME W/INR Collected: 06/03/2017 Status: F Source: [place] 6:50 PM [facility] [place] TYPE CODE TESTS RESULT OUT OF RANGE REFERENCE UNITS LAB L300.4150 11.7-14.9 SECONDS High PROTIME 15.0 LAB L300.4200 Normal INR 1.2 Performed By: #### L300.3900, L300.4310 #### [facility] [address] [place], [address] PARTIAL THROMBOPLAST Collected: 06/03/2017 Status: F Source: [place] TIME 6:50 PM [facility] [place] TYPE CODE TESTS RESULT OUT OF REFERENCE UNITS RANGE LAB L300.4310 24.1-36.2 Seconds High PTT 61.2 Performed By: #### L300.3900, L300.4310 #### [facility] [address] [place], [address] COMPREHENSIVE METABOLIC Collected: 06/03/2017 Status: F Source: [place] PROFIL 6:50 PM [facility] [place] Order Comment: 'TROP' Serial specimen #1, #2, #3, or #4: 1 TYPE CODE TESTS RESULT OUT OF RANGE REFERENCE UNITS LAB L501.0100 70-110 mg/dL High alert GLU 636 Result Comment: Critical Result(s) Called at: 19:50:41 06/03/2017 by: Imani Romero Glucose result greater than or equal to 200 mg/dL suggests DIABETES MELLITUS per A.D.A. criteria. LAB L501.1000 7-18 mg/dL High BUN 81 LAB L501.1100 0.55-1.02 mg/dL High CREAT,SERUM 4.41 Result Comment: The validity of the calculated GFR AND GFRAA in patients over 70 years has not been determined. Clinical correlation is essential. LAB L501.1110 >60 mL/min Low EST GFR 11 Result Comment: Non- GFR Calc LAB L501.1115 >60 mL/min Low EST GFR - AA 13 Result Comment: GFR Calc LAB L501.1255 ml/min Normal Estimated CRCL 11.67 LAB L501.1300 10-20 RATIO Normal BUN/CRE 18.4 LAB L501.1500 6.4-8. g/dL High 2 T PROT 8.6 LAB L501.1800 3.4-5. g/dL Normal 0 ALB 3.5 Result Comment: Please note revised Albumin AND Globulin reference range effective 2017. LAB L501.1950 2.2-4.2 g/dL High GLOB 5.1 LAB L501.2000 0.9-2.4 RATIO Low A/G 0.7 LAB L501.2200 8.5-10.1 mg/dL Low CA 8.4 LAB L501.4100 15-37 U/L Low AST 12 LAB L501.4305 45-117 U/L High ALK P 267 LAB L501.4405 12-78 U/L Normal ALT 23 LAB L501.4600 0.20-1.00 mg/dL Normal T BILI 0.50 LAB L501.5300 136-145 mmol/L Low NA 124 LAB L501.5600 3.5-5.1 mmol/L High K 5.4 LAB L501.5900 98-107 mmol/L Low CL 91 LAB L501.6100 21.0-32.0 mmol/L Low CO2 19.0 LAB L501.6200 5-15 Normal GAP 14 Performed By: #### L500.4050, L501.2450, L501.4010 #### [facility] [address] [place], [place], [address] LIPASE Collected: 06/03/2017 Status: F Source: [place] 6:50 PM [facility] [place] Order Comment: 'TROP' Serial specimen #1, #2, #3, or #4: 1 TYPE CODE TESTS RESULT OUT OF RANGE REFERENCE UNITS LAB L501.2450 73-393 U/L Normal LIPASE 204 Performed By: #### L500.4050, L501.2450, L501.4010 #### [facility] [address] [place], [address] TROPONIN-I Collected: 06/03/2017 Status: F Source: [place] 6:50 PM [facility] [place] [facility] Order Comment: 'TROP' Serial specimen #1, #2, #3, or #4: 1 TYPE CODE TESTS RESULT OUT OF RANGE REFERENCE UNITS LAB L501.4010 <0.06 ng/mL Normal < 0.02 TROPONIN-I Result Comment: TROPONIN-I EXPECTED VALUES <0.05 NEGATIVE 0.06 - 0.59 AT RISK OF WI > OR = 0.60 SUGGEST WI Performed By: #### L500.4050, L501.2450, L501.4010 #### [facility] [address] [place], [address] ALCOHOL, BLOOD Collected: 06/03/2017 Status: F Source: [place] (MEDICAL)-SERUM 6:50 PM [facility] [place] TYPE CODE TESTS RESULT OUT OF RANGE REFERENCE UNITS LAB L501.9100 mg/dL Normal SERUM 5.0 ETOH Result Comment: The serum:whole blood ethanol ratio is approximately 1.14 and varies slightly with hematocrit. Medical Alcohol reference interval and critical value in non-tolerant individuals; 50 - 100 Impairment 100 Intoxication 100 - 250 Severe Poisoning 250 - 400 Deep/possible fatal coma Performed By: #### L501.9100 #### [facility] [address] [place], [place], [address] ACETONE SERUM Collected: 06/03/2017 Status: F Source: [place] 6:50 PM [facility] [place] TYPE CODE TESTS RESULT OUT OF RANGE REFERENCE UNITS LAB L501.6900 NEG Normal ACETONE SERUM NEGATIVE Performed By: #### L501.6900 #### [facility] [address] [place], [place], [address] OSMOLALITY, SERUM Collected: 06/03/2017 Status: F Source: [place] 6:50 PM [facility] [place] TYPE CODE TESTS RESULT OUT OF RANGE REFERENCE UNITS LAB L501.7300 275-295 mOsm/KG High 333 OSMOLALITY,S ER Performed By: #### L501.7300 #### [facility] [address] [place], [place], [address] ALLERGIES ALLERGIES DATE TYPE / NAME / CODE REACTION SEVERITY SOURCE CODE 05/19/2018 Drug Penicillins/F0010 Laryngospasms Unknown [place] Allergy/41 68840(RXNORM) Community 2442826([facility]) Repository 05/19/2018 Drug latex/[id number]( Unknown Unknown [place] Allergy/41 RXNORM) Community 0282815([facility]) Repository 05/19/2018 Drug metformin/X662782 Nausea [place] Allergy/41 534(RXNORM) Community 8807153([facility]) Repository 05/19/2018 Drug aspartame/N478859 Swelling Unknown [place] Allergy/41 605(RXNORM) Community 6799064([facility]) Repository 11/27/2014 [facility]EX [facility] 4480083[facility] Repository 04/29/2005 DRUG CODEINE [facility] Other 3475538([facility]) Repository 04/29/2005 Drug PENICILLINS HIVES [place] Class/4195 Clinic Other 99906([facility]) Repository ENCOUNTERS ENCOUNTERS ADMIT/DISCHARGE ACCOUNT ADMITTING ENCOUNTER LOCATION SOURCE NUMBER CLASS 05/20/2018 [id number] Ambulatory BMSBuilding:Francisca Gaffney MS.BIM [facility] Repository 05/19/2018/05/19/20 [id number] [facility] [address] ing:JE7Cgdq: Repository MY768Jhl: 1 05/19/2018 [id number] Krishna Del Castillo [facility] 05/19/2018 [id number] Ambulatory [facility] ing:LAB Repository 02/08/2018 [id number] Ambulatory BMSBuilding:Francisca Gaffney MS.BIM [facility] Repository 11/05/2017 [id number] Ambulatory [facility] ing:CT Repository 10/14/2017/10/15/19 [id number] Ambulatory BMSBuilding:B [place] 18 [facility] Repository 09/20/2017 [id number] Ambulatory BMSBuilding:B [place] MS[facility] Repository 07/05/2017/07/05/19 [id number] Ambulatory BMSBuilding:B [place] 18 MS.[facility] Repository 06/21/2017/06/24/19 [id number] KETAN ERAZO Ambulatory [place] 18 Clinic Other [place] Repository 06/03/2017/06/06/20 [id number] [place], Inpatient [place] 17 [place] Encounter [facility] ing:ICURoom: Repository QCT48Hnh: 1 PAYERS PAYERS ENCOUNTER GUARANTOR PAYER SUBSCRIBER SOURCE 05/20/2018 TREY Gaffney [id number] W Insurance:SEBASTIANPeterson ADELAIDAB: [facility] [id number], [place] PLANPolicy Number: Repository [id number]: 419 [id number] [phone] () Date:0429-54-75IY [address] [place] [address] 74319SX: 05/20/2018 Secondary NOT GIVENUNK [place] Insurance:SELF PAY [facility] Number: Effective Repository Date:2018-05-20 05/19/2018 TREY Gaffney [id number] W [facility] [id number], [place] PLANPolicy Number: Repository [address]Jli: 419 [id number] [phone] () Date:6325-95-91FN [address] [place] [address] 39534HS: 05/19/2018 Secondary NOT GIVENUNK [place] Insurance:SELF PAY [facility] Number: Effective Repository Date:2018-05-19 05/19/2018 TREY Gaffney [id number] W Insurance:[facility]: [facility] [id number], [place] PLANPolicy Number: Repository [id number]: 419 [id number] [phone] (HP) Date:9415-47-11JP [address] [place] [address] [place] [address]ZX: 05/19/2018 Secondary NOT GIVENUNK [place] Insurance:SELF PAY [facility] Number: Effective Repository Date:2018-05-19 05/19/2018 TREY Primary YANCY Gaffney [id number] W Insurance:JENNYFER FREITASB: [facility] [id number], [place] PLANPolicy Number: Repository 19643Yun: 419 [id number] [phone] (HP) Date:3866-02-93HW [address] [place] [address] 99356FW: 05/19/2018 Secondary NOT GIVENUNK [place] Insurance:SELF PAY [facility] Number: Effective Repository Date:2018-05-19 02/08/2018 Trey Primary YANCY Gaffney [id number] W Insurance:JENNYFER FREITASB: [facility] [id number], [place] PLANPolicy Number: Repository [address]Scu: 419 [id number] [phone] (HP) Date:6178-30-78EH [address] [place] [address] 06075BK: 02/08/2018 Secondary NOT GIVENUNK [place] Insurance:SELF PAY [facility] Number: Effective Repository Date:2018-02-03 11/05/2017 Trey Primary YANCY Gaffney [id number] W Insurance:JENNYFER FREITASB: [facility] [id number], [place] PLANPolicy Number: Repository 33905Boh: 419 [id number] [phone] (HP) Date:8674-88-54EP [address] [place] [address] [place] [address]FF: 11/05/2017 Secondary NOT GIVENUNK [place] Insurance:SELF PAY [facility] Number: Effective Repository Date:2017-10-14 10/14/2017 Trey Primary YANCY [id number] [address] Insurance:JENNYFER FREITASB: [facility] [id number], [place] PLANPolicy Number: Repository [address]Pez: 419 [id number] [phone] (HP) Date:2315-36-98WO [address] [place], [place] [address]SHRUTHI 11562XN: 10/14/2017 Secondary NOT GIVENUNK [place] Insurance:SELF PAY [facility] Number: Effective Repository Date:2017-10-14 09/20/2017 Trey Primary YANCY [id number] Insurance:JENNYFER FREITASB: [facility] [id number], [place] PLANPolicy Number: Repository [id number]: 419 [id number] [phone] (HP) Date:8275-64-43LU [address] [place] [address] [place] 36[address]ZP: 09/20/2017 Secondary NOT GIVENUNK [place] Insurance:SELF PAY [facility] Number: Effective Repository Date:2017-09-20 07/05/2017 Trey Primary YANCY [id number] W Insurance:JENNYFER FREITASB: [facility] [id number], [place] PLANPolicy Number: Repository 324[address]Vkh: 419 [id number] [phone] (HP) Date:1727-56-32MR [address] [place] [address] 65886ZT: 07/05/2017 Secondary NOT GIVENUNK [place] Insurance:SELF PAY [facility] Number: Effective Repository Date:2017-06-30 06/03/2017 Trey Primary YANCY [id number] W Insurance:JENNYFER FREIATSB: [facility] [id number], [place] PLANPolic Number: Repository [id number]: (490) [id number] [phone] (HP) Date:3445-92-48AV [address] [place] [address] [place] 472[address]KE: 06/03/2017 Secondary NOT GIVENUNK [place] Insurance:SELF PAY [facility]: Effective Repository Date:2017-06-03
== END ==
PROVIDERS: Family Provider Internal Medicine; PCP Internal Medicine
DX: R53.83 Other fatigue (principal); Z79.899 Other long term (current) drug therapy
CPT/HCPCS: 36415; 80048; 84443; 85025

== ENCOUNTER 2018-05-19 14:51 | Observation (INO) | payer MEDICAID, SELFPAY ==
[2018-05-19 14:53] VITALS: BP 186/108; PULSE 115; RESP 18; TEMP 36; O2SAT 100; BMI 36.8
--- NOTE | 2018-05-19 15:11 | ED.VISSUMM ---
- ER Visit Summary Date of Service: 05/19/18 Chief Complaint: Elevated blood sugar History of Present Illness: The patient is a 52 F she has been off her insulin for approximately 1 year when her daughter of a drug overdose March2016. She states she is not suicidal but depressed. She is taking her bipolar medications. She states she is peeing frequently but denies dysuria. She denies any abdominal pain, vomiting or diarrhea. No fever. She had outpatient labs done by her psychiatrist who noted to have extremely high blood sugar and send her to the emergency department. Physical Examination: Middle-aged female. Currently no acute distress. Vital signs are stable and afebrile. H EENT exam unremarkable. Neck nontender. Lungs clear to auscultation bilaterally. 115. No murmur. Moving all 4 extremities. Calves nontender. No edema. Neurologically she is awake and alert with no focal motor deficits. Test Results: CBC normal white count of 6. Hemoglobin 13. Electrolytes sodium 125. Gap of 9 BUN of 27 creatinine 1.38. Blood sugar is 911. Serum ketones are negative. Emergency Department Course and Treatment: Patient treated with 2 L normal saline was started on insulin drip. Patient is doing well on repeat exam at 16:22. Treatment Plan: I spoke to the hospitalist will be down and evaluate the patient for admission. He may choose insulin boluses versus a drip to allow the patient to go to a different level of care. I will leave that to his discretion. Disposition: Admission Impression: Acute severe hyperglycemia secondary to medical noncompliance History of insulin dependent diabetes This note was generated with [employer] dictation software. It may contain incorrect words, spelling, and punctuation that were not noted in review of the chart prior to signing ED Disposition - Plan for ED Patient: Chief Complaint: Hyperglycemia Referrals: Trudy Ordaz MD [Primary Care Provider] -
[2018-05-19 15:36] LABS: Bedside Glucose > 500 mg/dL (70-110)
[2018-05-19] MEDS: 0.9% Normal Saline 1,000 ML 999 ML IV ×2 (15:37→16:52)
[2018-05-19 15:39] LABS: Absolute Lymphocyte Count 1.27 X10^3/ul (0.83-4.51); Absolute Neutrophil Count 5.1 X10^3/uL (2.0-7.7); Basophil# 0.01 X10^3/uL; Basophil% 0.1 % (0-1); Eosinophil# 0.13 X10^3/uL; Eosinophils% 1.9 % (0-5); Hematocrit 39.4 % (37-47); Hemoglobin 13.2 g/dl (12.0-15.0); Lymphocyte # 1.27 X10^3/ul (4.0); Lymphocyte % 18.5 % (19-41); Mean Corp Hgb Conc 33.5 g/gl (32-36); Mean Corpuscular Hgb 29.8 pg (27.0-32.0); Mean Corpuscular Volume 88.9 fL (81-99); Mean Platelet Vol. 9.4 fl (6.2-12.0); Monocyte# 0.29 X10^3/uL; Monocyte% 4.2 % (0-10); Neutrophil # 5.11 X10^3/uL (2.7-7.7); Neutrophil % 74.6 % (47-70); POSITIVE COUNT NO; POSITIVE DIFFERENTIAL NO; POSITIVE MORPHOLOGY NO; Platelet Count 194 K/mm3 (150-450); RBC Distribution Width CV 13.2 % (11.6-14.6); RBC Distribution Width SD 41.9 fl (35.1-43.9); Red Blood Count 4.43 M/mm3 (4.2-5.4); White Blood Count 6.9 K/mm3 (4.4-11.0)
[2018-05-19 15:46] VITALS: BP 137/88; PULSE 102; RESP 18; O2SAT 96
[2018-05-19 16:09] LABS: BUN 27 mg/dL (7-18); Creatinine, Serum 1.38 mg/dL (0.55-1.02); EST Glomerular Filtration Rate 42 mL/min (>60); Estimated Creatinine Clearance 36.86 ml/min; Glucose 911 mg/dL (74-106)
[2018-05-19 16:10] LABS: Anion Gap 9 (5-15); BUN/Creat Ratio 19.6 RATIO (10-20); Calcium,Total 8.7 mg/dL (8.5-10.1); Chloride 89 mmol/L (98-107); Est Glom Filt Rate - Afr Amer 51 mL/min (>60); Potassium 3.8 mmol/L (3.5-5.1); Sodium Level 125 mmol/L (136-145)
--- NOTE | 2018-05-19 16:10 | ED.RN ---
NOTE LEFT FOR DR VALIENTE REFERENCE GLUCOSE RESULTS
--- NOTE | 2018-05-19 16:26 | NURSING ---
DR LUPE VALIENTE
--- NOTE | 2018-05-19 16:38 | NURSING ---
MED SURG HYPERGLYCEMIA [facility]
[2018-05-19 16:51] LABS: Bedside Glucose 495 mg/dL (70-110)
--- NOTE | 2018-05-19 16:52 | PCM.HP.STD ---
<Asif Johnson - Last Filed: 05/19/18 16:52> Problem List (1) Hyperglycemia Status: Acute (2) HTN (hypertension) Status: Chronic (3) CKD (chronic kidney disease) Status: Chronic (4) Hyperlipidemia Status: Chronic (5) Type 2 diabetes mellitus Status: Chronic (6) Depression with anxiety Status: Chronic History of Present Illness Date of Admission: 05/19/18 Chief Complaint: hyperglycemia The patient is a 52 year old F with pmhx of DMt2, bipolar disorder, htn, hld, ckd, who presents to the er for hyperglycemia, sent by her psychiatrist. She had routine labs drawn today in preparation for initiation of lithium therapy. She is being weaned off of seroquel and zoloft towards this too. She was called and told to come to the ER as her blood sugar was very high. In the ER it was >900. She states she is feeling otherwise her usual self. No respiratory complaints or confusion. She does admit to polyuria and polydipsia. She used to take farxiga, mealtime insulin, and long acting insulin. She stopped about 1 year ago when her daughter - after rehab relapsed and from overdose complications. She became tearful when discussing this, but is otherwise pleasant. She states she just lost interest in caring for herself. She denies intentionally trying to hurt herself or having suicidal thoughts. [] Past Medical History Past Medical History (Chronic Problems): Chronic Problems (Last Updated 05/19/18 @ 17:29 by Krishna Del Castillo DO) Abdominal pain (Chronic) Hypokalemia (Chronic) Hypomagnesemia (Chronic) Diabetes (Chronic) Anxiety (Chronic) Depression with anxiety (Chronic) Type 2 diabetes mellitus (Chronic) Hyperlipidemia (Chronic) HTN (hypertension) (Chronic) CKD (chronic kidney disease) (Chronic) Medical History: Medical History (Last Reviewed 10/14/17 @ 15:37 by Justine Swan) Back problem M53.9 Bladder/UTI Breast lump N63.0 Frequent headaches R51 GERD (gastroesophageal reflux disease) K21.9 H/O emotional problems F48.9 Hives L50.9 Kidney stones N20.0 Pnuemonia Polycystic ovaries E28.2 Seasonal allergies J30.2 Vision problems H54.7 Vitamin defciency HTN (hypertension) I10 Allergies metformin Allergy (Severe, Verified 11/29/18 14:52) Nausea aspartame Allergy (Verified 05/19/18 14:52) Swelling latex Allergy (Verified 05/19/18 14:52) Unknown Penicillins Allergy (Verified 05/19/18 14:52) Laryngospasms Home Medications: Ambulatory Orders Medication Instructions Recorded Aspirin [Aspirin, Baby] 81 mg PO DAILY@0800 09/10/15 Cholecalciferol (Vitamin D3) 50,000 unit PO WE 09/10/15 [Decara] Folic Acid 1 mg PO DAILY@0800 09/10/15 Sertraline HCl [Zoloft] 50 mg PO DAILY 09/10/15 atorvastatin 40 mg tablet 40 mg PO QHS #90 tab 07/05/17 prazosin 1 mg capsule 1 mg PO QHS 30 Days #30 07/05/17 hydrochlorothiazide 25 mg tablet 25 mg PO QAM #90 tab 10/14/17 hydroxyzine HCl 25 mg tablet 25 mg PO TID-QID PRN 10/14/17 pantoprazole 40 mg tablet,delayed 40 mg PO BID tab 11/11/17 release lisinopril 40 mg tablet 40 mg PO QDAY #90 tab 01/24/18 oxybutynin chloride 5 mg tablet 5 mg PO TID #90 tab 03/18/18 ALPRAZolam [Xanax] 0.5 mg PO DAILY 05/19/18 Ibuprofen 800 mg PO Q8H PRN 05/19/18 Quetiapine Fumarate [Seroquel] 25 mg PO BID 05/19/18 Surgical History: Surgical History (Last Reviewed 10/14/17 @ 15:37 by Justine Swan) History of section Z98.891 History of cholecystectomy Z98.890, Z90.49 Surgical History: - - colonoscopy, egd, explorotory lap Psychiatric History: Bipolar MECHANIC History: No pertinent MECHANIC history Lives: Spouse/ Significant Other Smoking Status: Never smoker Tobacco Use: Non-smoker Alcohol: Occasional - *Family History Maternal History Items: Unknown Paternal History Items: Unknown Review of Systems Constitutional: Denies: Chills, Fever, Weight Change HEENT: Denies: Head Aches, Sinus Congestion, Sinus Drainage Cardiovascular: Denies: Chest Pain, Palpitations Respiratory: Denies: Cough, Shortness of breath at rest, Sputum production Gastrointestinal: Denies: Abdominal Pain, Nausea, Vomiting Genitourinary: Denies: Dysuria Musculoskeletal: Denies: Joint Pain, Joint Tenderness Skin: Denies: Rash, Wounds Neurological: Denies: Numbness, Tingling, Focal weakness Psychiatric: Denies: Anxiety, Depression, Homicidal Ideations, Suicidal Ideations Endocrine: Reports: Polydipsia, Polyuria Hematologic/ Lymphatic: Denies: Easy Bruising, Easy Bleeding VTE Information - Inpt Only VTE Present on Admission: No VTE Mechan Device Prophylaxis: None VTE Pharm Prophylaxis ordered?: Yes Patient Problems: Active and Suspected Problems (Last Updated 05/19/18 @ 17:29 by Krishna Del Castillo DO) Hyperglycemia (Acute) Hyperglycemia due to type 2 diabetes mellitus (Acute) - Physical Exam General: Alert, Oriented x3, Cooperative HEENT: Atraumatic, PERRLA, EOMI, Normocephalic Neck: Supple, No JVD, Negative Carotid Bruits Lungs: Clear to auscultation, Normal air movement Cardiovascular: Regular rate, No murmurs Abdomen: Bowel Sounds Present, Soft, Non Tender, Obese Extremities: No edema, Capillary Refill Less than 3 Seconds Skin: No rashes, No breakdown Musculoskeletal: No Tenderness to Palpation of Joints or Extremities Neurological: Cranial nerves II-XII grossly intact Psych/Mental Status: Normal Affect, Appropriate Vital Signs Temp Pulse Resp BP Pulse Ox 96.8 F L 102 H 18 137/88 H 96 05/19/18 14:53 05/19/18 15:46 05/19/18 15:46 05/19/18 15:46 05/19/18 15:46 Oxygen Delivery Method Room Air Weight: 201 lb 0.985 oz Body Mass Index (BMI) 36.8 Finger Stick Blood Glucose 495 Laboratory Tests Past 24 Hrs 05/19/18 05/19/18 05/19/18 15:25 15:25 15:25 WBC 6.9 RBC 4.43 Hgb 13.2 Hct 39.4 MCV 88.9 MCH 29.8 MCHC 33.5 RDW 13.2 RDW Differential 41.9 Plt Count 194 MPV 9.4 Immature Gran % (Auto) 0.700 Neut % (Auto) 74.6 H Lymph % (Auto) 18.5 L Morehouse % (Auto) 4.2 Eos % (Auto) 1.9 Baso % (Auto) 0.1 Absolute Neuts (auto) 5.1 Absolute Lymphs (auto) 1.27 Total Counted Not Reportable Sodium 125 L Potassium 3.8 Chloride 89 L Carbon Dioxide 27.0 Anion Gap 9 BUN 27 H Creatinine 1.38 H Estim Creat Clear Calc 36.86 Est GFR (MDRD) Af Amer 51 L Est GFR (MDRD) Non-Af 42 L BUN/Creatinine Ratio 19.6 Glucose 911 H* Calcium 8.7 Acetone Level NEGATIVE POC Glucose 05/19/18 05/19/18 16:47 15:25 POC Glucose 495 H* > 500 H* Assessment/Plan All Active Problems (Last Updated 05/19/18 @ 17:29 by Krishna Del Castillo DO) Toxic encephalopathy (Acute) Suicide attempt (Acute) Hyperosmolar non-ketotic state in patient with type 2 diabetes mellitus (Acute) ZOEY (acute kidney injury) (Acute) Aspiration pneumonia (Acute) Bilateral tinnitus (Acute) OAB (overactive bladder) (Acute) Hyperglycemia (Acute) Hyperglycemia due to type 2 diabetes mellitus (Acute) 1. DMt2 with severe hyperglycemia 2/2 noncompliance - no evidence of DKA. Bolus insulin. Improved from 911 to 495 already in the ER. Continue bolus. Pt used to be on farxiga, lantus, mealtime insulin. Needs new monitor/test strips, etc, at dc. 2. Bipolar disorder - plan is to transition to lithium, will continue prior meds. May transition to lithium when sodium stabilizes. 3. Pseudohyponatremia - 2/2 above. Trend. 4. Suspect CKD III - dc NSAIDS. 5. HTN - intermittently takes her BP meds as well. Trend. DC HCTZ. 6. HLD - statin 7. GERD - on ppi bid. DVT ppx: heparin DC planning: This will depend on how quickly her sugars normalize. I do not suspect any homegoing needs. No debility. Needs follow up with PCP, Psychiatry. This patient was seen by Asif Johnson PA-C under the supervision of Doctor Magdalene. 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 Patient was having some screening labs before being started on lithium and was noted to have blood sugar in the 800s. Patient was directed to the emergency room and blood sugar is actually 911. Patient stopped taking insulin about a year ago after daughter overdosed. Patient recognizes that that was not a proper decision to make but just stopped taking it simply. Patient initially were written for insulin drip but patient did receive IV fluids and did improve to 450. Patient will receive 20 units of NovoLog in the [facility] C room. Patient be admitted to the hospital for further monitoring of sugar control. [] Past Medical History Medical History: Medical History (Last Updated 05/19/18 @ 17:29 by Krishna Del Castillo DO) Eczema L30.9 Back problem M53.9 Bladder/UTI Breast lump N63.0 Frequent headaches R51 GERD (gastroesophageal reflux disease) K21.9 H/O emotional problems F48.9 Hives L50.9 Kidney stones N20.0 Pnuemonia Polycystic ovaries E28.2 Seasonal allergies J30.2 Vision problems H54.7 Vitamin defciency HTN (hypertension) I10 Allergies metformin Allergy (Severe, Verified 05/19/18 14:52) Nausea aspartame Allergy (Verified 05/19/18 14:52) Swelling latex Allergy (Verified 05/19/18 14:52) Unknown Penicillins Allergy (Verified 05/19/18 14:52) Laryngospasms Surgical History: Surgical History (Last Reviewed 05/19/18 @ 17:28 by Krishna Del Castillo DO) History of section Z98.891 History of cholecystectomy Z98.890, Z90.49 Psychiatric History: Bipolar MECHANIC History: No pertinent MECHANIC history - *Family History Maternal History Items: Unknown Paternal History Items: Unknown Offspring History Items: - - Daughter of drug overdose Review of Systems Constitutional: Denies: Chills, Fever, Weight Change HEENT: Denies: Head Aches, Sinus Congestion, Sinus Drainage Cardiovascular: Denies: Chest Pain, Palpitations Respiratory: Denies: Cough, Shortness of breath at rest, Sputum production Gastrointestinal: Denies: Abdominal Pain, Nausea, Vomiting Genitourinary: Denies: Dysuria Musculoskeletal: Denies: Joint Pain, Joint Tenderness Skin: Reports: Rash - Eczema. Patient states that she has tried numerous therapies without relief.. Denies: Wounds Neurological: Denies: Focal weakness, Numbness, Tingling Psychiatric: Denies: Anxiety, Depression, Homicidal Ideations, Suicidal Ideations Endocrine: Reports: Polyuria Hematologic/ Lymphatic: Denies: Easy Bruising, Easy Bleeding VTE Information - Inpt Only VTE Present on Admission: No VTE Mechan Device Prophylaxis: None VTE Pharm Prophylaxis ordered?: Yes - Physical Exam General: Alert, Cooperative HEENT: Atraumatic, Normocephalic Neck: No Nodes, Thyroid Normal Size and Texture Lungs: Clear to auscultation, Normal air movement, No rhonchi, No wheeze Cardiovascular: Regular rate, Regular Rhythm, Normal S1, Normal S2, No murmurs Abdomen: Bowel Sounds Present, Soft, Non Tender, Non-Distended Extremities: No edema, No Calf Tenderness Skin: - - eczema of arms and hands. Musculoskeletal: No Tenderness to Palpation of Joints or Extremities, No Muscle Wasting Psych/Mental Status: Normal Affect, Appropriate Vital Signs Temp Pulse Resp BP Pulse Ox 36.0 C L 102 H 18 137/88 H 96 05/19/18 14:53 05/19/18 15:46 05/19/18 15:46 05/19/18 15:46 05/19/18 15:46 Oxygen Delivery Method Room Air Weight: 91.2 kg Body Mass Index (BMI) 36.8 Finger Stick Blood Glucose 495 Laboratory Tests Past 24 Hrs 05/19/18 05/19/18 05/19/18 15:25 15:25 15:25 WBC 6.9 RBC 4.43 Hgb 13.2 Hct 39.4 MCV 88.9 MCH 29.8 MCHC 33.5 RDW 13.2 RDW Differential 41.9 Plt Count 194 MPV 9.4 Immature Gran % (Auto) 0.700 Neut % (Auto) 74.6 H Lymph % (Auto) 18.5 L Morehouse % (Auto) 4.2 Eos % (Auto) 1.9 Baso % (Auto) 0.1 Absolute Neuts (auto) 5.1 Absolute Lymphs (auto) 1.27 Total Counted Not Reportable Sodium 125 L Potassium 3.8 Chloride 89 L Carbon Dioxide 27.0 Anion Gap 9 BUN 27 H Creatinine 1.38 H Estim Creat Clear Calc 36.86 Est GFR (MDRD) Af Amer 51 L Est GFR (MDRD) Non-Af 42 L BUN/Creatinine Ratio 19.6 Glucose 911 H* Calcium 8.7 Acetone Level NEGATIVE POC Glucose 05/19/18 05/19/18 16:47 15:25 POC Glucose 495 H* > 500 H* Assessment/Plan Patient seen and examined independently. Data reviewed. I agree with the above note by the physician executive administrative assistant. 1. Diabetes mellitus type 2, uncontrolled with severe hyperglycemia No clinical evidence of hyperosmolar non-ketosis nor DKA at this time No indication for insulin drip Patient will be on bolus insulins as well as started on Lantus Patient recognizes that she needs treatment and is willing to move forward with continuing insulin therapy If blood sugars improved and are reasonable, the expectation was for the patient be able to be discharged with an insulin regimen. I will be started the patient on 30 units of Lantus at night and then 8 units with meals 2. Hyponatremia Likely pseudohyponatremia due to the severe hyperglycemia Follow-up lab work in the morning 3. Bipolar disorder Patient to follow-up with psychiatry in regards to initiation of lithium Code Visit OBSV E&M: [id number] Initial observation care L2
[2018-05-19 16:53] VITALS: BMI 36.8
--- NOTE | 2018-05-19 17:00 | HP.PCM_ITS ---
<Asif Johnson - Last Filed: 05/19/18 16:52> Problem List (1) Hyperglycemia Status: Acute (2) HTN (hypertension) Status: Chronic (3) CKD (chronic kidney disease) Status: Chronic (4) Hyperlipidemia Status: Chronic (5) Type 2 diabetes mellitus Status: Chronic (6) Depression with anxiety Status: Chronic History of Present Illness Date of Admission: 05/19/18 Chief Complaint: hyperglycemia The patient is a 52 year old F with pmhx of DMt2, bipolar disorder, htn, hld, ckd, who presents to the er for hyperglycemia, sent by her psychiatrist. She had routine labs drawn today in preparation for initiation of lithium therapy. She is being weaned off of seroquel and zoloft towards this too. She was called and told to come to the ER as her blood sugar was very high. In the ER it was >900. She states she is feeling otherwise her usual self. No respiratory complaints or confusion. She does admit to polyuria and polydipsia. She used to take farxiga, mealtime insulin, and long acting insulin. She stopped about 1 year ago when her daughter - after rehab relapsed and from overdose complications. She became tearful when discussing this, but is otherwise pleasant. She states she just lost interest in caring for herself. She denies intentionally trying to hurt herself or having suicidal thoughts. [] Past Medical History Past Medical History (Chronic Problems): Chronic Problems (Last Updated 05/19/18 @ 17:29 by Krishna Del Castillo DO) Abdominal pain (Chronic) Hypokalemia (Chronic) Hypomagnesemia (Chronic) Diabetes (Chronic) Anxiety (Chronic) Depression with anxiety (Chronic) Type 2 diabetes mellitus (Chronic) Hyperlipidemia (Chronic) HTN (hypertension) (Chronic) CKD (chronic kidney disease) (Chronic) Medical History: Medical History (Last Reviewed 10/14/17 @ 15:37 by Justine Swan) Back problem M53.9 Bladder/UTI Breast lump N63.0 Frequent headaches R51 GERD (gastroesophageal reflux disease) K21.9 H/O emotional problems F48.9 Hives L50.9 Kidney stones N20.0 Pnuemonia Polycystic ovaries E28.2 Seasonal allergies J30.2 Vision problems H54.7 Vitamin defciency HTN (hypertension) I10 Allergies metformin Allergy (Severe, Verified 11/29/18 14:52) Nausea aspartame Allergy (Verified 05/19/18 14:52) Swelling latex Allergy (Verified 05/19/18 14:52) Unknown Penicillins Allergy (Verified 05/19/18 14:52) Laryngospasms Home Medications: Ambulatory Orders Medication Instructions Recorded Aspirin [Aspirin, Baby] 81 mg PO DAILY@0800 09/10/15 Cholecalciferol (Vitamin D3) 50,000 unit PO WE 09/10/15 [Decara] Folic Acid 1 mg PO DAILY@0800 09/10/15 Sertraline HCl [Zoloft] 50 mg PO DAILY 09/10/15 atorvastatin 40 mg tablet 40 mg PO QHS #90 tab 07/05/17 prazosin 1 mg capsule 1 mg PO QHS 30 Days #30 07/05/17 hydrochlorothiazide 25 mg tablet 25 mg PO QAM #90 tab 10/14/17 hydroxyzine HCl 25 mg tablet 25 mg PO TID-QID PRN 10/14/17 pantoprazole 40 mg tablet,delayed 40 mg PO BID tab 11/11/17 release lisinopril 40 mg tablet 40 mg PO QDAY #90 tab 01/24/18 oxybutynin chloride 5 mg tablet 5 mg PO TID #90 tab 03/18/18 ALPRAZolam [Xanax] 0.5 mg PO DAILY 05/19/18 Ibuprofen 800 mg PO Q8H PRN 05/19/18 Quetiapine Fumarate [Seroquel] 25 mg PO BID 05/19/18 Surgical History: Surgical History (Last Reviewed 10/14/17 @ 15:37 by Justine Swan) History of section Z98.891 History of cholecystectomy Z98.890, Z90.49 Surgical History: - - colonoscopy, egd, explorotory lap 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: No pertinent CONTROL SUPERVISOR history Lives: Spouse/ Significant Other Smoking Status: Never smoker Tobacco Use: Non-smoker Alcohol: Occasional - *Family History Maternal History Items: Unknown Paternal History Items: Unknown Review of Systems Constitutional: Denies: Chills, Fever, Weight Change HEENT: Denies: Head Aches, Sinus Congestion, Sinus Drainage Cardiovascular: Denies: Chest Pain, Palpitations Respiratory: Denies: Cough, Shortness of breath at rest, Sputum production Gastrointestinal: Denies: Abdominal Pain, Nausea, Vomiting Genitourinary: Denies: Dysuria Musculoskeletal: Denies: Joint Pain, Joint Tenderness Skin: Denies: Rash, Wounds Neurological: Denies: Numbness, Tingling, Focal weakness Psychiatric: Denies: Anxiety, Depression, Homicidal Ideations, Suicidal Ideations Endocrine: Reports: Polydipsia, Polyuria Hematologic/ Lymphatic: Denies: Easy Bruising, Easy Bleeding VTE Information - Inpt Only VTE Present on Admission: No VTE Mechan Device Prophylaxis: None VTE Pharm Prophylaxis ordered?: Yes Patient Problems: Active and Suspected Problems (Last Updated 05/19/18 @ 17:29 by Krishna Del Castillo DO) Hyperglycemia (Acute) Hyperglycemia due to type 2 diabetes mellitus (Acute) - Physical Exam General: Alert, Oriented x3, Cooperative HEENT: Atraumatic, PERRLA, EOMI, Normocephalic Neck: Supple, No JVD, Negative Carotid Bruits Lungs: Clear to auscultation, Normal air movement Cardiovascular: Regular rate, No murmurs Abdomen: Bowel Sounds Present, Soft, Non Tender, Obese Extremities: No edema, Capillary Refill Less than 3 Seconds Skin: No rashes, No breakdown Musculoskeletal: No Tenderness to Palpation of Joints or Extremities Neurological: Cranial nerves II-XII grossly intact Psych/Mental Status: Normal Affect, Appropriate Vital Signs Temp Pulse Resp BP Pulse Ox 96.8 F L 102 H 18 137/88 H 96 05/19/18 14:53 05/19/18 15:46 05/19/18 15:46 05/19/18 15:46 05/19/18 15:46 Oxygen Delivery Method Room Air Weight: 201 lb 0.985 oz Body Mass Index (BMI) 36.8 Finger Stick Blood Glucose 495 Laboratory Tests Past 24 Hrs 05/19/18 05/19/18 05/19/18 15:25 15:25 15:25 WBC 6.9 RBC 4.43 Hgb 13.2 Hct 39.4 MCV 88.9 MCH 29.8 MCHC 33.5 RDW 13.2 RDW Differential 41.9 Plt Count 194 MPV 9.4 Immature Gran % (Auto) 0.700 Neut % (Auto) 74.6 H Lymph % (Auto) 18.5 L [place] % (Auto) 4.2 Eos % (Auto) 1.9 Baso % (Auto) 0.1 Absolute Neuts (auto) 5.1 Absolute Lymphs (auto) 1.27 Total Counted Not Reportable Sodium 125 L Potassium 3.8 Chloride 89 L Carbon Dioxide 27.0 Anion Gap 9 BUN 27 H Creatinine 1.38 H Estim Creat Clear Calc 36.86 Est GFR (MDRD) Af Amer 51 L Est GFR (MDRD) Non-Af 42 L BUN/Creatinine Ratio 19.6 Glucose 911 H* Calcium 8.7 Acetone Level NEGATIVE POC Glucose 05/19/18 05/19/18 16:47 15:25 POC Glucose 495 H* > 500 H* Assessment/Plan All Active Problems (Last Updated 05/19/18 @ 17:29 by Krishna Del Castillo DO) Toxic encephalopathy (Acute) Suicide attempt (Acute) Hyperosmolar non-ketotic state in patient with type 2 diabetes mellitus (Acute) ZOEY (acute kidney injury) (Acute) Aspiration pneumonia (Acute) Bilateral tinnitus (Acute) OAB (overactive bladder) (Acute) Hyperglycemia (Acute) Hyperglycemia due to type 2 diabetes mellitus (Acute) 1. DMt2 with severe hyperglycemia 2/2 noncompliance - no evidence of DKA. Bolus insulin. Improved from 911 to 495 already in the ER. Continue bolus. Pt used to be on farxiga, lantus, mealtime insulin. Needs new monitor/test strips, etc, at dc. 2. Bipolar disorder - plan is to transition to lithium, will continue prior meds. May transition to lithium when sodium stabilizes. 3. Pseudohyponatremia - 2/2 above. Trend. 4. Suspect CKD III - dc NSAIDS. 5. HTN - intermittently takes her BP meds as well. Trend. DC HCTZ. 6. HLD - statin 7. GERD - on ppi bid. DVT ppx: heparin DC planning: This will depend on how quickly her sugars normalize. I do not suspect any homegoing needs. No debility. Needs follow up with PCP, Psychiatry. This patient was seen by Asif Johnson PA-C under the supervision of Doctor Magdalene. <Krishna Del Castillo - Last Filed: 05/19/18 17:32> Problem List (1) Hyperglycemia due to type 2 diabetes mellitus Status: Acute Qualifiers: Diabetes mellitus medical terminologist insulin use: without retirement use Qualified Code(s): E11.65 - Type 2 diabetes mellitus with hyperglycemia History of Present Illness Chief Complaint: hyperglycemia The patient is a 52 year old F presents with hyperglycemia. Patient was having some screening labs before being started on lithium and was noted to have blood sugar in the 800s. Patient was directed to the emergency room and blood sugar is actually 911. Patient stopped taking insulin about a year ago after daughter overdosed. Patient recognizes that that was not a proper decision to make but just stopped taking it simply. Patient initially were written for insulin drip but patient did receive IV fluids and did improve to 450. Patient will receive 20 units of NovoLog in the emerge C room. Patient be admitted to the hospital for further monitoring of sugar control. [] Past Medical History Medical History: Medical History (Last Updated 05/19/18 @ 17:29 by Krishna Del Castillo DO) Eczema L30.9 Back problem M53.9 Bladder/UTI Breast lump N63.0 Frequent headaches R51 GERD (gastroesophageal reflux disease) K21.9 H/O emotional problems F48.9 Hives L50.9 Kidney stones N20.0 Pnuemonia Polycystic ovaries E28.2 Seasonal allergies J30.2 Vision problems H54.7 Vitamin defciency HTN (hypertension) I10 Allergies metformin Allergy (Severe, Verified 05/19/18 14:52) Nausea aspartame Allergy (Verified 05/19/18 14:52) Swelling latex Allergy (Verified 05/19/18 14:52) Unknown Penicillins Allergy (Verified 05/19/18 14:52) Laryngospasms Surgical History: Surgical History (Last Reviewed 05/19/18 @ 17:28 by Krishna Del Castillo DO) History of section Z98.891 History of cholecystectomy Z98.890, Z90.49 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: No pertinent CONTROL SUPERVISOR history - *Family History Maternal History Items: Unknown Paternal History Items: Unknown Offspring History Items: - - Daughter of drug overdose Review of Systems Constitutional: Denies: Chills, Fever, Weight Change HEENT: Denies: Head Aches, Sinus Congestion, Sinus Drainage Cardiovascular: Denies: Chest Pain, Palpitations Respiratory: Denies: Cough, Shortness of breath at rest, Sputum production Gastrointestinal: Denies: Abdominal Pain, Nausea, Vomiting Genitourinary: Denies: Dysuria Musculoskeletal: Denies: Joint Pain, Joint Tenderness Skin: Reports: Rash - Eczema. Patient states that she has tried numerous therapies without relief.. Denies: Wounds Neurological: Denies: Focal weakness, Numbness, Tingling Psychiatric: Denies: Anxiety, Depression, Homicidal Ideations, Suicidal Ideations Endocrine: Reports: Polyuria Hematologic/ Lymphatic: Denies: Easy Bruising, Easy Bleeding VTE Information - Inpt Only VTE Present on Admission: No VTE Mechan Device Prophylaxis: None VTE Pharm Prophylaxis ordered?: Yes - Physical Exam General: Alert, Cooperative HEENT: Atraumatic, Normocephalic Neck: No Nodes, Thyroid Normal Size and Texture Lungs: Clear to auscultation, Normal air movement, No rhonchi, No wheeze Cardiovascular: Regular rate, Regular Rhythm, Normal S1, Normal S2, No murmurs Abdomen: Bowel Sounds Present, Soft, Non Tender, Non-Distended Extremities: No edema, No Calf Tenderness Skin: - - eczema of arms and hands. Musculoskeletal: No Tenderness to Palpation of Joints or Extremities, No Muscle Wasting Psych/Mental Status: Normal Affect, Appropriate Vital Signs Temp Pulse Resp BP Pulse Ox 36.0 C L 102 H 18 137/88 H 96 05/19/18 14:53 05/19/18 15:46 05/19/18 15:46 05/19/18 15:46 05/19/18 15:46 Oxygen Delivery Method Room Air Weight: 91.2 kg Body Mass Index (BMI) 36.8 Finger Stick Blood Glucose 495 Laboratory Tests Past 24 Hrs 05/19/18 05/19/18 05/19/18 15:25 15:25 15:25 WBC 6.9 RBC 4.43 Hgb 13.2 Hct 39.4 MCV 88.9 MCH 29.8 MCHC 33.5 RDW 13.2 RDW Differential 41.9 Plt Count 194 MPV 9.4 Immature Gran % (Auto) 0.700 Neut % (Auto) 74.6 H Lymph % (Auto) 18.5 L [place] % (Auto) 4.2 Eos % (Auto) 1.9 Baso % (Auto) 0.1 Absolute Neuts (auto) 5.1 Absolute Lymphs (auto) 1.27 Total Counted Not Reportable Sodium 125 L Potassium 3.8 Chloride 89 L Carbon Dioxide 27.0 Anion Gap 9 BUN 27 H Creatinine 1.38 H Estim Creat Clear Calc 36.86 Est GFR (MDRD) Af Amer 51 L Est GFR (MDRD) Non-Af 42 L BUN/Creatinine Ratio 19.6 Glucose 911 H* Calcium 8.7 Acetone Level NEGATIVE POC Glucose 05/19/18 05/19/18 16:47 15:25 POC Glucose 495 H* > 500 H* Assessment/Plan Patient seen and examined independently. Data reviewed. I agree with the above note by the physician electrical assistant. 1. Diabetes mellitus type 2, uncontrolled with severe hyperglycemia * No clinical evidence of hyperosmolar non-ketosis nor DKA at this time * No indication for insulin drip * Patient will be on bolus insulins as well as started on Lantus * Patient recognizes that she needs treatment and is willing to move forward with continuing insulin therapy * If blood sugars improved and are reasonable, the expectation was for the patient be able to be discharged with an insulin regimen. * I will be started the patient on 30 units of Lantus at night and then 8 units with meals 2. Hyponatremia * Likely pseudohyponatremia due to the severe hyperglycemia * Follow-up lab work in the morning 3. Bipolar disorder * Patient to follow-up with psychiatry in regards to initiation of lithium Code Visit OBSV E&M: [id number] Initial observation care L2
[2018-05-19] MEDS: Insulin Lispro 100 UNIT/ML INSULN.PEN 20 UNIT SC (17:14)
[2018-05-19 17:27] VITALS: BMI 35.6
[2018-05-19 17:30] VITALS: BP 159/103; PULSE 102; RESP 16; TEMP 36.6; O2SAT 95
[2018-05-19 18:21] LABS: Bedside Glucose 280 mg/dL (70-110)
[2018-05-19] MEDS: Insulin Lispro 100 UNIT/ML INSULN.PEN 8 UNIT SQ (18:22)
[2018-05-19 18:43] LABS: Hemoglobin A1c 14.3 % (4.2-6.3)
[2018-05-19] MEDS: ALPRAZolam 0.5 MG Tablet PO (20:16)
[2018-05-19] MEDS: QUEtiapine 25 MG Tablet PO (20:16)
[2018-05-19] MEDS: Pantoprazole Sodium 40 MG Tablet PO (20:16)
[2018-05-19] MEDS: Atorvastatin Calcium 40 MG Tablet PO (20:16)
[2018-05-19] MEDS: Doxazosin 1 MG Tablet PO (20:16)
[2018-05-19] MEDS: Oxybutynin 5 MG Tablet PO (20:16)
[2018-05-19] MEDS: Lisinopril 40 MG Tablet PO (20:28)
[2018-05-19 20:30] VITALS: BP 132/74; PULSE 99; RESP 18; TEMP 36.7; O2SAT 99
[2018-05-19 20:56] LABS: Bedside Glucose 146 mg/dL (70-110)
--- NOTE | 2018-05-19 21:34 | NURSING ---
ENTERED PT ROOM. SHE IS FRUSTRATED BC HER CALL LIGHT WAS NOT ANSWERED QUICKLY ENOUGH WHEN SHE NEEDED TO GO TO THE BR. PT OW REQUESTING TO LEAVE AMA TO BE WITH HER DOG AND CAT AND . PT ADVISED THAT HER BGTS NEED TO BE FREQUENTLY MONITORED AND MEDS WILL NEED TO BE ADJUSTED ACCORDING TO RESULTS. ADVISED PT THAT LEAVING THE HOSPITAL COULD BE VERY DANGEROUS SINCE SHE HAS NO SHORT-ACTING INSULIN, NO GLUCOSE MONITOR, AND NO STRIPS. DR RUIZ NOTIFIED.
--- NOTE | 2018-05-19 22:09 | NURSING ---
DISCUSSED RISKS OF LEAVING AMA W/PT AGAIN. PT REMAINS ADAMANT THAT SHE IS GOING HOME. SHE STATES SHE WON'T BE ABLE TO SLEEP HERE (REFUSED SLEEP AID) AND SHE WON'T BE ABLE TO SLEEP WITHOUT HER ANIMALS. PT REMINDED AGAIN THAT IF SHE EXPERIENCES ANY CHANGES IN MENTAL OR PHYSICAL STATUS SHE IS TO RETURN TO THE HOSPITAL IMMEDIATELY FOR FURTHER CARE. PT ADVISED THAT SHE IS AT RISK FOR WORSENING CONDITION, HYPO AND HYPERGLYCEMIA, AND EVEN . PT SIGNED AMA PAPER. PT WAS THEN WALKED TO THE ER WAITING ROOM WHERE SHE ANTICIPATES A RIDE FROM HER SON. PT AMBULATED W/O DIFFICULTY. REPORTED NO S/SXS OF HYPO OR HYPERGLYCEMIA. DENIES DIZZINESS AND LIGHT-HEADEDNESS.
--- OUTSIDE RECORDS SUMMARY | 2018-07-14 22:12 | XMS RPT_ITS ---
:1965 Author Organization OHIP Support Name Relationship Address Phone UE Unavailable Unavailable Unavailable TREY SHAW Unavailable [address] + [place] [address] UE Unavailable Unavailable Unavailable TREY SHAW Unavailable [address] + [place] [address] UE Unavailable Unavailable Unavailable TREY SHAW Unavailable [address] + [place] [address] UE Unavailable Unavailable Unavailable TREY SHAW Unavailable [address] + [place] [address] UE Unavailable Unavailable Unavailable TREY SHAW Unavailable [address] + [place] [address] UE Unavailable Unavailable Unavailable TREY SHAW Unavailable [address] + [place] [address] UE Unavailable Unavailable Unavailable TREY SHAW Unavailable [address] + [place] [address] UE Unavailable Unavailable Unavailable TREY SHAW Unavailable [address] + [place] [address] UE Unavailable Unavailable Unavailable TREY SHAW Unavailable [address] + [place] [address] UE Unavailable Unavailable Unavailable TREY SHAW Unavailable [address] + [place] [address] Care Team Providers Name Role Phone Trudy Ordaz Attending Unavailable Simone Grey Referring Unavailable Simone Grey Primary Care Unavailable Yisel White Attending Unavailable Trudy Ordaz Attending Unavailable Simone Grey Referring Unavailable Simone Grey Primary Care Unavailable Oleghe, Efewongbe Attending Unavailable Oleghe, Efewongbe Primary Care Unavailable Oleghe, Efewongbe Referring Unavailable Francis Thomaosn Attending Unavailable Oleghe, Efewongbe Referring Unavailable ROGER JOYCE Attending Unavailable ROGER JOYCE Referring Unavailable Oleghe, Efewongbe Primary Care Unavailable Oleghe, Efewongbe Primary Care Unavailable Jopperi, Krishna Admitting Unavailable Jopperi, Krishna Attending Unavailable Jopperi, Krishna Admitting Unavailable Oleghe, Efewongbe Primary Care Unavailable Jopperi, Krishna Consulting Unavailable Jopperi, Krishna Attending Unavailable Yisel White Attending Unavailable Simone Grey Primary Care Unavailable Darline Penaloza Admitting Unavailable Jopperi, Krishna Attending Unavailable Mike Rodrigues Consulting Unavailable KETAN ERAZO Admitting Unavailable UZMA HDZ) Attending Unavailable PROBLEMS PROBLEMS DATE TYPE CONDITION / CODE ATTENDING STATUS SOURCE 05/19/2018 Unknown Z79.899 - Other ROGER JOYCE Active [place] [facility] drug therapy [facility] Hospital Z79.899(ICD-10) Repository 05/19/2018 Unknown R53.83 - Other ROGER JOYCE Active [place] fatigue / Community R53.83(ICD-10) Hospital Repository 10/14/2017 Unknown R10.9 - Unspecified Oleghe, Active [place] abdominal pain / [facility] R10.9(ICD-10) Hospital Repository 07/05/2017 Unknown E11.9 - Type 2 Oleghe, Active [place] diabetes mellitus [facility] without Hospital complications / Repository E11.9(ICD-10) 07/05/2017 Unknown E78.5 - Oleghe, Active [place] Hyperlipidemia, [facility] unspecified / Hospital E78.5(ICD-10) Repository 07/05/2017 Unknown Z00.00 - Encounter Oleghe, Active [place] for general adult [facility] Hospital without abnormal Repository findings / Z00.00(ICD-10) 07/05/2017 Unknown G89.29 - Other Oleghe, Active [place] chronic pain / [facility] G89.29(ICD-10) Hospital Repository 06/24/2017 Active Acute cystitis UZMA HDZ Active [facility] without hematuria / ANYAM () Other [place] N30.00(ICD-10) Repository 06/24/2017 Active Dehydration / LAURA, D Active [facility] E86.0(ICD-10) ROBIN () Other [place] Repository 06/24/2017 Active Other specified LAURA, D Active [facility] abnormal findings ROBIN () Other [place] of blood chemistry Repository / R79.89(ICD-10) 06/24/2017 Active Hyperglycemia, LAURA, D Active [facility] unspecified / NAZEM () Other [place] R73.9(ICD-10) Repository 06/24/2017 Active Essential (primary) LAURA, [facility] Active [facility] hypertension / ROBIN () Other [place] I10(ICD-10) Repository 06/21/2017 Active Epigastric pain / LAURA, D Active [facility] R10.13(ICD-10) ROBIN () Other [place] Repository 06/21/2017 Active Type 2 diabetes LAURA [facility] Active [facility] mellitus with NANAPOLEON () Other [place] hyperglycemia / Repository E11.65(ICD-10) 06/21/2017 Active senior living (current) LAURA, D Active [facility] use of insulin / ROBIN () Other [place] Z79.4(ICD-10) Repository 06/21/2017 Active Upper abdominal LAURA, D Active [facility] pain, unspecified / NAWILLIAMM () Other [place] R10.10(ICD-10) Repository 06/21/2017 Active Orthostatic LAURA, D Active [facility] hypotension / NAWILLIAMM () Other [place] I95.1(ICD-10) Repository 06/21/2017 Active Dizziness and LAURA, D Active [facility] giddiness / ROBIN () Other [place] R42(ICD-10) Repository PROCEDURES PROCEDURES No Procedure Records FoundRESULTS RESULTS EMERGENCY DEPARTMENT Observed: 05/19/2018 Status: F Source: [place] SUMMARY 11:54 PM [facility] REPOSITORY [facility] Medical Records Department [address] [place] [address] Emergency Department Summary 05/19/18 1511 MR#: [id number] Acct: [id number] Name: YANCY SHAW #: [id number] : 1965 52 From: Trey Darling MD [...] dependent diabetes This note was generated with Inktd dictation software. It may contain incorrect words, [...] problems, contact your Primary Care Provider. Call [employer] ([phone]) or report to the closest Emergency Room. Call 911 if necessary. 05/19/18 5324 <Electronically signed by Trey Darling MD> Date Trey Darling MD Cosigner Signature (If Indicated): Date CC: Trudy Ordaz MD BEDSIDE GLUCOSE Collected: 05/19/2018 Status: F Source: [place] 8:50 PM [facility] REPOSITORY TYPE CODE TESTS RESULT OUT OF REFERENCE UNITS RANGE LAB L501.080 70-110 mg/dL High BEDSIDE GLU 146 Result Comment: MANAGEMENT OF PATIENT CARE PER NURSING PROTOCOL Performed By: #### L501.080 #### [facility] Laboratory Point of Care [address] [place] [address] BEDSIDE GLUCOSE Collected: 05/19/2018 Status: F Source: [place] 6:15 PM [facility] REPOSITORY TYPE CODE TESTS RESULT OUT OF REFERENCE UNITS RANGE LAB L501.080 70-110 mg/dL High BEDSIDE GLU 280 Result Comment: MANAGEMENT OF PATIENT CARE PER NURSING PROTOCOL Performed By: #### L501.080 #### [facility] Point of Care [address] [place] [address] HISTORY AND PHYSICAL Observed: 05/19/2018 Status: F Source: [place] EXAM 5:33 PM [facility] REPOSITORY [facility] Medical Records Department [address] [place] [address] History and Physical 05/19/18 1652 MR#: [id number] Acct: [id number] Name: YANCY SHAW Adali Rep #: [id number] : 1965 52 From: Asif LI PCP: Trudy Ordaz MD Status: ADM TANYA Y Location: MS3 [id number] <Asif Johnson - Last Filed: 05/19/18 16:52> [...] colonoscopy, egd, explorotory lap Psychiatric History: Bipolar MAIL MESSENGER History: No pertinent MAIL MESSENGER history Lives: Spouse/ Significant Other Smoking Status: [...] diabetes mellitus Status: Acute Qualifiers: 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 1. Diabetes mellitus type 2, uncontrolled [...] lithium Code Visit OBSV E AND M: 91653 Initial observation care L2 05/19/18 1705 <Electronically signed by Asif Johnson PA> Date Asif LI 05/19/18 1733<Electronically signed by Krishna Del Castillo DO> Cosigner Signature: Date (if applicable) Krishna Del Castillo DO CC: JEN Johnson; Trudy Ordaz MD; Krishna Del Castillo DO Signed BEDSIDE GLUCOSE Collected: 05/19/2018 Status: F Source: [place] 4:47 PM [facility] REPOSITORY TYPE CODE TESTS RESULT OUT OF REFERENCE UNITS RANGE LAB L501.080 70-110 mg/dL High alert BEDSIDE GLU 495 Result Comment: MANAGEMENT OF PATIENT CARE PER NURSING PROTOCOL Performed By: #### L501.080 #### [facility] Point of Care [address] [place], [place] [address] BEDSIDE GLUCOSE Collected: 05/19/2018 Status: F Source: [place] 3:25 PM [facility] REPOSITORY TYPE CODE TESTS RESULT OUT OF REFERENCE UNITS RANGE LAB L501.080 70-110 mg/dL High alert BEDSIDE GLU > 500 Result Comment: Dr Orders Followed MANAGEMENT OF PATIENT CARE PER NURSING PROTOCOL Performed By: #### L501.080 #### [facility] Point of Care [address] [place] [address] CBC W/DIFF, AUTOMATED Collected: 05/19/2018 Status: F Source: [place] 3:25 PM [facility] REPOSITORY TYPE CODE TESTS RESULT OUT [...] Lymph 1.27 Performed By: #### L100.0100 #### [facility] [address] [facility] [place], [place], [address] BASIC METABOLIC Collected: 05/19/2018 Status: F Source: [place] PROFILE (BMP) 3:25 PM [facility] REPOSITORY TYPE CODE TESTS RESULT OUT [...] GAP 9 Performed By: #### L500.2500 #### [facility] [address] [place], [address] ACETONE SERUM Collected: 05/19/2018 Status: F Source: [place] 3:25 PM [facility] REPOSITORY TYPE CODE TESTS RESULT OUT OF RANGE REFERENCE UNITS LAB L501.6900 NEG Normal ACETONE SERUM NEGATIVE Performed By: #### L501.6900 #### [facility] [address] [place], [address] HEMOGLOBIN A1C Collected: 05/19/2018 Status: F Source: [place] 3:25 PM [facility] REPOSITORY TYPE CODE TESTS RESULT OUT OF RANGE REFERENCE UNITS LAB L501.9985 4.2-6.3 % High HGB A1C 14.3 Performed By: #### L501.9985 #### [facility] [address] [facility] [place], [address] MICROALBUMIN,RANDOM URINE Collected: Status: F Source: [place] 05/19/2018 3:20 PM [facility] REPOSITORY Order Comment: Comments: use urine in lab from TYPE CODE TESTS RESULT OUT OF RANGE REFERENCE UNITS LAB L502.0500 NO RANGE EST. mg/L Normal 147.0 MICROALBUMIN ,UR Performed By: #### L502.0500 #### [facility] [address] [facility] [place], [place], [address] CBC W/DIFF, AUTOMATED Collected: 05/19/2018 Status: F Source: [place] 10:53 AM [facility] REPOSITORY TYPE CODE TESTS RESULT OUT [...] Lymph 1.61 Performed By: #### L100.0100 #### [facility] [address] [facility] [place], [address] BASIC METABOLIC Collected: 05/19/2018 Status: F Source: [place] PROFILE (BMP) 10:53 AM [facility] REPOSITORY TYPE CODE TESTS RESULT OUT OF RANGE REFERENCE UNITS LAB L501.0100 74-106 mg/dL High alert GLU 955 Result Comment: Critical Result(s) Called at: 13:42:20 05/19/2018 by: Blanca Ga to [facility] Glucose result greater than or equal [...] 9 Performed By: #### L500.2500, L501.9520 #### [facility] [address] [place], [place], [address] THYROID STIM HORMONE Collected: 05/19/2018 Status: F Source: [place] (TSH) 10:53 AM [facility] REPOSITORY TYPE CODE TESTS RESULT OUT OF RANGE REFERENCE UNITS LAB L501.9520 0.358-3.74 uIU/mL Normal TSH 1.92 Performed By: #### L500.2500, L501.9520 #### [facility] [address] [place], [address] CREATININE FINGERSTICK Collected: 11/05/2017 Status: F Source: [place] 5:51 PM [facility] REPOSITORY TYPE CODE TESTS RESULT OUT OF REFERENCE UNITS RANGE LAB L9100.0210 0.55-1.02 mg/dL High CREATININE WB 1.4 LAB L9100.0220 >60 mL/min Low EGFR WB 43.0000 Performed By: #### L9100.0200 #### [facility] Point of Care [address] [place] [address] ABDOMEN/PELVIS WITH Observed: 11/05/2017 Status: F Source: [place] CONTRAST 5:41 PM [facility] REPOSITORY [facility] Imaging Services [address] [place] [address] Abdomen/Pelvis WITH Contrast MR#: [id number] Acct: [id number] Name: YANCY SHAW Adali Rep #: [id number] : 1965 F 52 From: Froylan Jimenez DO PCP: Trudy Ordaz MD Status: REG CLI Study: Abdomen/Pelvis WITH Contrast Date of Exam: 11/05/17 Exam# [id number] Ordering Dr: Trudy Ordaz MD STUDY: CT [...] Froylan Jimenez DO at 22:58 EDT Tel [phone], Service support , CC: Trudy Ordaz MD Manager Land: Signed INTERNAL MEDICINE Observed: 10/15/2017 Status: F Source: [place] OFFICE VISIT 1:11 PM [facility] Internal Medicine [address] [place] [address] [place] [address] OFFICE VISIT Date of Service: 10/14/17 MR#: [id number] Acct: [id number] Name: YANCY SHAW Rep #: [id number] : 1965 Provider: Trudy Ordaz MD Age/Sex: 52/F Location: [facility] Status: Signed Intake Vital Signs10/14/17 Height 5 [...] PRN 10/14/17 [History Confirmed 10/14/17] [facility] Medical History Back problem (Acute) Bladder/UTI (Acute) [...] per patient was noted at her [facility] when she was about to get [...] been ongoing. 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 protruison noted. No obvious hernia. Midline protrusion possible Diastasis recti vs Hernia. However very tender. Abdominopelvic CT ordered. Follow up with results. This note was generated with Inktd dictation software. It may contain incorrect words, [...] EMERGENCY DEPARTMENT Observed: 09/24/2017 Status: F Source: [place] SUMMARY 8:12 AM [facility] REPOSITORY [facility] Medical Records Department [address] [place] [address] Emergency Department Summary 06/04/17 0048 MR#: [id number] Acct: [id number] Name: YANCY SHAW Rep #: [id number] : 1965 51 From: Edwina Lloyd MD [...] ARF, UTI This note was generated with Inktd dictation software. It may contain incorrect words, spelling, and punctuation that were not noted in review of the chart prior to signing ED Disposition - Plan for ED Patient: Disposition: Acute Care Hospital [facility] Chief Complaint: Overdose What to do if you have Problems For any increased pain, shortness of breath, bleeding, nausea or vomiting, chest pain, or any unexpected problems, contact your Primary Care Provider. Call [employer] ([phone]) or report to the closest Emergency Room. Call 911 if necessary. 06/04/17 0057 <Electronically signed by Edwina Lloyd MD> Date Edwina Lloyd MD Cosigner Signature (If Indicated): Date CC: Simone Grey MD INTERNAL MEDICINE Observed: 07/08/2017 Status: F Source: [place] OFFICE VISIT 1:32 PM [facility] Internal Medicine [address] [address] [place] [address] OFFICE VISIT Date of Service: 07/05/17 MR#: [id number] Acct: [id number] Name: YANCY SHAW Rep #: [id number] : 1965 Provider: Trudy Ordaz MD Age/Sex: 51/F Location: [facility] Status: Signed Intake Vital Signs07/05/17 Height 5 ft 2 in 07/05/17 Weight: 193 lb 4 oz Intake Visit 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 Marlys Grey at the [facility] until sometime in March when she was discharged from the practice due to a confrontation she had with the medical front desk coordinator official. She lost her daughter on the March and subsequently had a failed suicidal attempt. She was admitted to the [facility] after her attempt and was [...] well developed Orientation: alert, awake, oriented x3 HENNE Head: atraumatic, normocephalic, normal to inspection Ears: [...] doing well status post discharge from the [facility]. She is following up routinely with her psychiatrist. She denies any suicidal or homicidal ideations or attempts at this time Continue current medication. 2. Type 2 diabetes mellitus E11.9 Plan Hji-rsyekov-xktjxqiui. Currently on Faxiga. Patient is not sure [...] ordered. Follow-up. This note was generated with Naveggation software. It may contain incorrect words, spelling, [...] CASE MANAGEM Observed: 06/24/2017 Status: COMPLETED Source: [place] 3:58 PM CLINIC OTHER CAMPUS REPOSITORY O ID: [id number] Author: Ann Sinclair (Sw) Service: Care Management Author Type: Fisher Eel Type: Care Mgt Progress Note Filed: 06/24/2017 [...] 24, 2017 TIME: 3:58 PM PAGER/CONTACT #: [phone] CNDS Observed: 06/24/2017 Status: COMPLETED Source: [place] 12:03 PM CLINIC OTHER CAMPUS REPOSITORY O ID: [id number] Author: Uzma dHz Service: General Internal Medicine Author Type: Physician [...] this patient. SIGNATURE: Uzma Hdz MD PAGER: [phone], DATE: June 24, 2017 TIME: 12:03 PM NURSING PROG Observed: 06/24/2017 Status: COMPLETED Source: [place] 10:02 AM CLINIC OTHER CAMPUS REPOSITORY O ID: [id number] Author: Cristin (Hemalatha) HEMALATHA Holliday Service: (none) Author Type: Registered Nurse Type: Nursing Progress Note Filed: 06/24/2017 3:05 PM Note Text: Nursing Progress Note Patient Name: Yancy Shaw Patient Location: [place] [address]/[id number]- Daily Note: 0700: Assumed care of patient. [...] RN CBC Collected: 06/24/2017 Status: F Source: [place] 3:35 AM [facility] OTHER CAMPUS REPOSITORY TYPE CODE TESTS [...] 8.9 Performed By: #### CBC, CMP #### [facility] Laboratory [address] [place] [address] COMP METABOLIC PANEL Collected: 06/24/2017 Status: F Source: [place] 3:35 AM [facility] OTHER CAMPUS REPOSITORY TYPE CODE TESTS [...] GFR. Performed By: #### CBC, CMP #### [facility] [address] [place] [address] NURSING PROG Observed: 06/24/2017 Status: COMPLETED Source: [place] 2:42 AM [facility] REPOSITORY HNO ID: [id number] Author: Luz AbrahamRn) HEMALATHA Hernandes Service: (none) Author Type: Registered Nurse Type: Nursing Progress Note Filed: 06/24/2017 6:21 AM Note Text: Nursing Progress Note Patient Name: Yancy Shaw Patient Location: [place] [address] [address] Daily Note: 2330 assumed care of pt [...] NURSING PROG Observed: 06/24/2017 Status: COMPLETED Source: [place] 1:35 AM [facility] OTHER [place] REPOSITORY HNO ID: [id number] Author: Jordy AbrahamRn) HEMALATHA Gardiner Service: (none) Author Type: Registered Nurse Type: Nursing Progress Note Filed: 06/24/2017 1:37 AM Note Text: Nursing Progress Note Patient Name: Yancy Shaw Patient Location: [place] [address]/[id number] Daily Note: 1905 - assumed care of [...] NURSING PROG Observed: 06/24/2017 Status: COMPLETED Source: [place] 12:19 AM CLINIC OTHER CAMPUS REPOSITORY HNO ID: [id number] Author: Luz (Hemalatha) HEMALATHA Hernandes Service: (none) Author Type: Registered Nurse Type: Nursing Progress Note Filed: 06/24/2017 12:19 AM Note Text: Nursing Progress Note Patient Name: Yancy Shaw Patient Location: [place] [address]/[id number] Daily Note: 2330 assumed care of pt at this time. Rates abd pain 09/28. Denies nausea. IVF infusing without difficulty. This note was completed by: Luz Hernandes RN PROGRESS Observed: 06/23/2017 Status: COMPLETED Source: [place] 2:45 PM CLINIC OTHER CAMPUS REPOSITORY HNO ID: [id number] Author: Uzma Hdz Service: General Internal Medicine Author Type: Physician Type: Progress Notes Filed: 06/23/2017 2:48 PM Note Text: DEPARTMENT OF HOSPITAL MEDICINE PROGRESS NOTE Patient Name: Yancy Shaw SERVICE DATE AND TIME: June 23, 2017 2:46 PM Hospital Medicine/Primary Attending: Uzma Hdz MD NIGHT AND WEEKEND COVERAGE: Days: [phone], please page me or text for patient issues my pager cell # [phone]. Evening and Nights: [phone], please page [phone] ASSESSMENT AND PLAN Abdominal pain: Improving ? [...] PM LACTATE Collected: 06/23/2017 Status: F Source: [place] 8:34 AM [facility] OTHER [place] REPOSITORY TYPE CODE TESTS RESULT OUT OF REFERENCE UNITS RANGE LAB LACT 0.5-2.2 mmol/L Lactate 1.1 Performed By: #### LACT #### [facility] [address] [place] [address] NURSING PROG Observed: 06/23/2017 Status: COMPLETED Source: [place] 7:45 AM [facility] OTHER CAMPUS REPOSITORY HNO ID: [id number] Author: Nicolás (Rn) HEMALATHA Argueta Service: (none) Author Type: Registered Nurse Type: Nursing Progress Note Filed: 06/23/2017 6:45 PM Note Text: Nursing Progress Note Patient Name: Yancy Shaw [facility]/[id number] Daily Note:Resting in bed, denies pain @ [...] RN CBC Collected: 06/23/2017 Status: F Source: [place] 4:10 AM CLINIC OTHER CAMPUS REPOSITORY TYPE [...] 9.2 Performed By: #### CBC, CMP #### [facility] [address] [facility] [phone] COMP METABOLIC PANEL Collected: 06/23/2017 Status: F Source: [place] 4:10 AM CLINIC OTHER CAMPUS REPOSITORY TYPE [...] GFR. Performed By: #### CBC, CMP #### [facility] [address] [facility] [phone] NURSING PROG Observed: 06/23/2017 Status: COMPLETED Source: [place] 1:54 AM [facility] REPOSITORY HNO ID: [id number] Author: Mayuri (Rn) HEMALATHA Das Service: Nursing Author Type: Registered Nurse Type: Nursing Progress Note Filed: 06/23/2017 2:03 AM Note Text: Post Fall Assessment Yancy Shaw [id number] Witnessed: Yes How did fall occur: Ambulating [...] Education, Apply a Yellow Wrist Band, Apply [place] Risk Symbol to the Door, My Safety Plan Initiated and My Safety Plan Visible This note was completed by:Mayuri Das RN PROGRESS Observed: 06/23/2017 Status: COMPLETED Source: [place] 1:28 AM [facility] REPOSITORY HNO ID: [id number] Author: Cira Upton Service: General Internal Medicine Author Type: Physician Type: Progress Notes Filed: 06/23/2017 6:46 AM Note Text: ANESTHESIA ASSOCIATE EMERGENCY RESPONSE TEAM Rapid Response Date of [...] June 23, 2017 TIME: 1:28 AM PAGER: [phone] NURSING PROG Observed: 06/23/2017 Status: COMPLETED Source: [place] 12:51 AM CLINIC OTHER CAMPUS REPOSITORY HNO ID: [id number] Author: Mayuri (Rn) HEMALATHA Das Service: Nursing Author Type: Registered Nurse Type: Nursing Progress Note Filed: 06/23/2017 3:33 AM Note Text: Nursing Progress Note Patient Name: Yancy Shaw Patient [facility]/[id number]-[id number] Daily Note: 1935 Pt in bed resting, [...] RN PROGRESS Observed: 06/22/2017 Status: COMPLETED Source: [place] 3:35 PM CLINIC OTHER CAMPUS REPOSITORY HNO ID: [id number] Author: Radha Valerio Service: Hospital Medicine Author [...] June 22, 2017 TIME: 3:35 PM PAGER: [phone] CASE MGT INIT Observed: 06/22/2017 Status: COMPLETED Source: [place] 11:20 AM CLINIC OTHER CAMPUS REPOSITORY HNO ID: [id number] Author: Ann Sinclair (Sw) Service: Care Management Author Type: Fisher Eel Type: Care Mgt Initial Assessment Filed: 06/22/2017 11:24 AM Note Text: CARE MANAGEMENT: ASSESSMENT AND DISCHARGE PLAN SERVICE DATE: 06/22/2017 SERVICE TIME: 11:00AM PRIMARY CARE PHYSICIAN: Kenia Pcp Phone: None ADMISSION STATUS: Observation POTENTIAL DISCHARGE PLANS Home Patient/Guide Escort Stated Goals: Return home with spouse Health Insurance: [facility] Medicaid Living Arrangement: Home Lives With: Spouse [...] No Has the Patient Been in a Senior Living Facility in the Past 30 days? No FREEDOM OF CHOICE EXPLAINED: N/A HANDOFF COMMUNICATION: Currently has no PCP; provided with number for Physician Referral Line SIGNATURE: KEL Rubalcava PATIENT NAME: Yancy Shaw DATE: June 22, 2017 TIME: 11:20 AM PAGER/CONTACT #: [phone] NURSING PROG Observed: 06/22/2017 Status: COMPLETED Source: [place] 7:00 AM CLINIC OTHER CAMPUS REPOSITORY HNO ID: [id number] Author: Jonathan Khan (Rn) HEMALATHA Franklin Service: Nursing Author Type: Registered Nurse Type: Nursing Progress Note Filed: 06/22/2017 7:02 PM Note Text: Nursing Progress Note Patient Name: Yancy Shaw Patient Location: [place] [id number] Observation Daily Note: 0700- Assumed care of [...] RN LACTATE Collected: 06/22/2017 Status: F Source: [place] 6:01 AM [facility] OTHER [place] REPOSITORY TYPE CODE TESTS RESULT OUT OF REFERENCE UNITS RANGE LAB LACT 0.5-2.2 mmol/L Lactate 1.4 Performed By: #### LACT, CBC, CMP #### [facility] [address] [place] [address] CBC Collected: 06/22/2017 Status: F Source: [place] 6:01 AM [facility] OTHER [place] REPOSITORY TYPE CODE TESTS RESULT OUT OF [...] Performed By: #### LACT, CBC, CMP #### [facility] [address] [place] [address] COMP METABOLIC PANEL Collected: 06/22/2017 Status: F Source: [place] 6:01 AM CLINIC OTHER CAMPUS REPOSITORY TYPE [...] has been calibrated to be traceable to IDNE. An eGFR <60 mL/min/1.73m2 for >3 months is consistent with chronic kidney disease. Refer to KDOQI guidelines for clinical interpretation. In patients with unstable renal function, e.g. those with acute kidney injury, the eGFR may not accurately reflect actual GFR. Performed By: #### LACT, CBC, CMP #### [facility] [address] [place] [address] LACTATE Collected: 06/22/2017 Status: F Source: [place] 12:09 AM [facility] OTHER CAMPUS REPOSITORY TYPE CODE TESTS RESULT OUT OF REFERENCE UNITS RANGE LAB LACT 0.5-2.2 mmol/L High Lactate 2.6 Performed By: #### LACT, CMP #### [facility] [address] [place] [address] #### HBA1C #### [facility] [address] [place] [address] COMP METABOLIC PANEL Collected: 06/22/2017 Status: F Source: [place] 12:09 AM [facility] OTHER CAMPUS REPOSITORY TYPE CODE TESTS [...] GFR. Performed By: #### LACT, CMP #### [facility] [address] [facility] [phone] #### HBA1C #### [facility] [address] [place] [address] HEMOGLOBIN A1C Collected: 06/22/2017 Status: F Source: [place] 12:09 AM [facility] OTHER [place] REPOSITORY TYPE CODE TESTS RESULT OUT OF REFERENCE UNITS RANGE LAB HGBA1C 4.3-5.6 % High Hemoglobin A1c 9.0 LAB HBA0 mg/dL Est. Average Glucose 212 Result Comment: eAG: (Estimated average glucose) is a calculated value from HgbA1c and is event marketing representative of the average blood glucose level in the last 2-3 month period. Performed By: #### LACT, CMP #### [facility] [address] [facility] [phone] #### HBA1C #### [facility] [place] [address] CNCO Observed: 06/22/2017 Status: COMPLETED Source: [place] 12:00 AM [facility] MAIN CAMPUS REPOSITORY Letter Text June 22, 2017 [facility] [address] [place] [address] Regarding: Yancy Shaw (: 1965) Dear Dr. Martinez: A patient of your practice, Yancy Shaw, was admitted on 06/21/2017 to [facility] under the services of the Department of Hospital Medicine, and is currently under the care of Dr. Valerio. We look forward to collaborating with you regarding her care. If you have any questions or concerns, please call us in the Department of Hospital Medicine at [facility], at [phone]. Best Regards, Beto Mcclellan Letter Text June 25, 2017 [facility] [address] [place] [address] Re: Yancy Shaw Dear Dr. Martinez: A patient of your practice, Yancy Shaw (: 1965) was treated at [facility] under the care of the [facility] Department of Hospital Medicine, and discharged on 06/24/2017. A transcribed discharge summary should be forthcoming promptly. If you need additional information or assistance, you may contact the Department of Hospital Medicine at [phone] during regular business hours, and we?ll be happy to assist you. Best Regards, Beto Mcclellan Observed: 06/21/2017 Status: F Source: [place] URINE CULTURE 11:30 PM [facility] OTHER CAMPUS REPOSITORY Sp. Request/Comment: - Specimen received in preservative Urine midstream clean catch Culture Result - >=100,000 CFU/ml Enterococcus faecalis --> ABNORMAL ALERT ORGANISM: Enterococcus faecalis METHOD: Minimum inhibitory concentration(Vitek) Antibiotic Interp OPAL Status Ampicillin SUSCEPTIBLE <=2 F Nitrofurantoin SUSCEPTIBLE <=16 F Vancomycin SUSCEPTIBLE 1 F Performed By: #### URCUL #### [facility] [address] [place], [place] [address] NURSING PROG Observed: 06/21/2017 Status: COMPLETED Source: [place] 11:08 PM CLINIC OTHER CAMPUS REPOSITORY HNO ID: [id number] Author: Juan Miguel Alan (Rn) HEMALATHA Posada Service: Nursing Author Type: Registered Nurse Type: Nursing Progress Note Filed: 06/22/2017 7:01 AM Note Text: Nursing Progress Note Patient Name: Yancy Shaw Patient Location: [place] [id number] Daily Note: 2300 Admission and shift assessment [...] any other needs currently. 0210 Informed NOM aMteo Schultz of patient being a rule out C-diff as patient told Hospitalist GASOLINE PUMP INSTALLER she's had more than 3 liquid stools in 24 hours (none since being here) and patient having a roommate currently. Even though GASOLINE PUMP INSTALLER initially said contact precautions were not needed, [...] HISTORY PHYSICAL Observed: 06/21/2017 Status: COMPLETED Source: [place] 11:05 PM CLINIC OTHER CAMPUS REPOSITORY HNO ID: [id number] Author: Zonia Orozco Service: Hospital Medicine Author Type: Nurse Practitioner Type: HANDP Filed: 06/21/2017 11:48 PM Note Text: Attestation signed by Ketan Erazo at 06/26/2017 4:11 PM Attending Note I have personally performed a face to face assessment of the patient and have reviewed the PA/MASTER FIRE CONTROL TECHNICIAN note. My cuadra findings include: Agree w/ above Abdominal pain, unclear etiology Other additions or changes: None Signature: Ketan Erazo MD Date: 06/21/2017 Time: 2310 HOSPITAL MEDICINE HISTORY AND PHYSICAL EXAM PATIENT NAME: Yancy Shaw SERVICE DATE: 06/21/2017 SERVICE TIME: 11:06 PM Primary Care Physician: No Pcp NIGHT COVERAGE Page [phone] for any questions between 5.30p-7.30a ASSESSMENT AND [...] ED NOTE Observed: 06/21/2017 Status: COMPLETED Source: [place] 10:12 PM CLINIC MAIN CAMPUS REPOSITORY HNO ID: [id number] Author: Polina Brambila RN Service: Emergency Medicine Author Type: Registered Nurse Type: ED Notes Filed: 06/21/2017 10:14 PM Note Text: Report to [facility], patient alert and in no distress at time of transfer. ED NOTE Observed: 06/21/2017 Status: COMPLETED Source: [place] 10:03 PM [facility] MAIN [place] REPOSITORY HNO ID: [id number] Author: Milka Rivas RN Service: Emergency Medicine Author Type: Registered Nurse Type: ED Notes Filed: 06/21/2017 10:03 PM Note Text: Report given to Gordy Head and Polina Brambila Rn. ED NOTE Observed: 06/21/2017 Status: COMPLETED Source: [place] 10:03 PM CLINIC MAIN CAMPUS REPOSITORY HNO ID: [id number] Author: Milka Rivas RN Service: Emergency Medicine Author Type: Registered Nurse Type: ED Notes Filed: 06/21/2017 10:03 PM Note Text: Report given to [facility] nurse. ED NOTE Observed: 06/21/2017 Status: COMPLETED Source: [place] 9:17 PM CLINIC MAIN CAMPUS REPOSITORY HNO ID: [id number] Author: Polina Chavez) HEMALATHA Brambila Service: Emergency Medicine Author Type: Registered Nurse Type: ED Notes Filed: 06/21/2017 9:17 PM Note Text: Elba called at [facility]. Eta 45mins - 1hour ED NOTE Observed: 06/21/2017 Status: COMPLETED Source: [place] 9:15 PM CLINIC MAIN [place] REPOSITORY HNO ID: [id number] Author: Polina AbrahamRn) HEMALATHA Brambila Service: Emergency Medicine Author Type: Registered Nurse Type: ED Notes Filed: 06/21/2017 9:15 PM Note Text: Room 321-2 [facility] , Report [id number]. ED NOTE Observed: 06/21/2017 Status: COMPLETED Source: [place] 8:50 PM CLINIC MAIN [place] REPOSITORY HNO ID: [id number] Author: Polina AbrahamRn) HEMALATHA Brambila Service: Emergency Medicine Author Type: Registered Nurse Type: ED Notes Filed: 06/21/2017 8:51 PM Note Text: Dr. Erazo accepts patient, will wait for bed assignment ED PROV NOTE Observed: 06/21/2017 Status: COMPLETED Source: [place] 8:41 PM CLINIC MAIN [place] REPOSITORY HNO ID: [id number] Author: Mayra Zaman MD Service: Emergency Medicine Author Type: Physician Type: ED Provider Notes Filed: 06/22/2017 11:34 PM Note Text: ED Provider Note Patient Name: Yancy Shaw SERVICE DATE: 06/21/17 History Patient presents with: Vomiting HPI Comments: Brief exam prior to transfer and to document stability. History provided by: Patient (Dr. Rojas) educational sign language interpreter used: No PAST MEDICAL HISTORY Diagnosis Date [...] initially and reportedly accepted by physician at [place], then we were called and told not accepted. Ultimately accepted by Dr. Mtz at [facility] who discussed with me. Transfer forms to be completed. Encounter Diagnosis ICD-10-CM 1. Urinary tract infection with hematuria, site unspecified N39.0 R31.9 2. SIRS (systemic inflammatory response syndrome) (HCC) R65.10 3. Hyperglycemia R73.9 4. Abdominal pain, unspecified abdominal location R10.9 Plan The Patient was TRANSFERRED to: [facility] Condition at time of disposition: improved and stable SIGNATURE: MD Mayra Zuniga MD 06/22/17 2334 ED NOTE Observed: 06/21/2017 Status: COMPLETED Source: [place] 8:38 PM [facility] REPOSITORY HNO ID: [id number] Author: Polina AbrahamRn) HEMALATHA Brambila Service: Emergency Medicine Author Type: Registered Nurse Type: ED Notes Filed: 06/21/2017 8:39 PM Note Text: Dr. Erazo on the phone with Dr. Zaman ED NOTE Observed: 06/21/2017 Status: COMPLETED Source: [place] 8:35 PM [facility] REPOSITORY HNO ID: [id number] Author: Milka AbrahamRn) Rob, RN Service: Emergency Medicine Author Type: Registered Nurse Type: ED Notes Filed: 06/21/2017 9:02 PM Note Text: Ceftriaxone infusion complete. IV flushes easily. Site stage 0. Pt resting comfortably on cart awaiting disposition. GLUCOSE METER Collected: 06/21/2017 Status: F Source: [facility] 8:16 PM HEALTH SYSTEM REPOSITORY TYPE CODE TESTS RESULT OUT OF REFERENCE UNITS RANGE LAB LGLUB(LOINC 70-99 mg/dL ) High Glucose Meter 228 Result Comment: NOTIFIED [place] [address] Performed By: #### LGLMT #### [facility] [address] [place], [place] [address] RAPID INFLUENZA A/B Collected: 06/21/2017 Status: F Source: [facility] 8:05 PM HEALTH SYSTEM REPOSITORY TYPE CODE TESTS RESULT OUT OF REFERENCE UNITS RANGE LAB LRFLU(LOIN Negative C) Rapid Influenza A/B See below Result Comment: Negative for influenza A and B. Performed By: #### LRFLU #### [facility] [address] [place], [place] [address] ED NOTE Observed: 06/21/2017 Status: COMPLETED Source: [place] 8:00 PM CLINIC MAIN CAMPUS REPOSITORY HNO ID: [id number] Author: Polina AbrahamRn) HEMALATHA Brambila Service: Emergency Medicine Author Type: Registered Nurse Type: ED Notes Filed: 06/21/2017 8:00 PM Note Text: [facility] transfer line Dangelo called regarding transfer to [facility] ED NOTE Observed: 06/21/2017 Status: COMPLETED Source: [place] 7:57 PM CLINIC MAIN CAMPUS REPOSITORY HNO ID: [id number] Author: Polina AbrahamRn) HEMALATHA Brambila Service: Emergency Medicine Author Type: Registered Nurse Type: ED Notes Filed: 06/21/2017 7:58 PM Note Text: Return call from [facility] Nursing water treatment plant supervisor regarding bed, She states that she contacted Dr. Israel, who said that she is refusing acceptance. ED NOTE Observed: 06/21/2017 Status: COMPLETED Source: [place] 7:52 PM CLINIC MAIN CAMPUS REPOSITORY HNO ID: [id number] Author: Polina AbrahamRn) HEMALATHA Brambila Service: Emergency Medicine Author Type: Registered Nurse Type: ED Notes Filed: 06/21/2017 7:52 PM Note Text: [facility] Nursing water treatment plant supervisor called, states she will check on status of bed. ED NOTE Observed: 06/21/2017 Status: COMPLETED Source: [place] 6:59 PM CLINIC MAIN CAMPUS REPOSITORY HNO ID: [id number] Author: Evelin AbrahamRn) HEMALATHA Hodge Service: Emergency Medicine Author Type: Registered Nurse Type: ED Notes Filed: 06/21/2017 6:59 PM Note Text: Pt accepted by DR Israel at [facility], waiting on bed assignment from [facility] ED NOTE Observed: 06/21/2017 Status: COMPLETED Source: [place] 6:51 PM CLINIC MAIN CAMPUS REPOSITORY HNO ID: [id number] Author: Evelin AbrahamRn) HEMALATHA Hodge Service: Emergency Medicine Author Type: Registered Nurse Type: ED Notes Filed: 06/21/2017 6:52 PM Note Text: Call to [facility] nursing water treatment plant supervisor, they are still waiting to hear back from the hospitalist ED NOTE Observed: 06/21/2017 Status: COMPLETED Source: [place] 5:14 PM CLINIC MAIN CAMPUS REPOSITORY HNO ID: [id number] Author: Milka AbrahamRn) Rob, RN Service: Emergency Medicine Author Type: Registered Nurse Type: ED Notes Filed: 06/21/2017 5:15 PM Note Text: Pt alert and oriented. Pt resting on left side. Blood cultures and lactic acid # 3 obtained per order and sent to lab. Pt tolerated well. at bedside LACTIC ACID Collected: 06/21/2017 Status: F Source: [facility] 5:05 PM HEALTH SYSTEM REPOSITORY TYPE CODE TESTS RESULT OUT OF REFERENCE UNITS RANGE LAB LLA(LOINC) 0.4-2.0 mEq/L High alert Lactic acid 2.4 Performed By: #### LLA #### [place] [address] Observed: 06/21/2017 Status: F Source: [facility] BLOOD 5:05 PM HEALTH SYSTEM REPOSITORY Test performed at [facility] No growth Performed By: #### C_BLO #### [place] [address] Observed: 06/21/2017 Status: F Source: [facility] BLOOD 4:50 PM HEALTH SYSTEM REPOSITORY Test performed at [facility] No growth Performed By: #### C_BLO #### [place] [address] ED NOTE Observed: 06/21/2017 Status: COMPLETED Source: [place] 3:47 PM [facility] MAIN CAMPUS REPOSITORY HNO ID: [id number] Author: Milka AbrahamRn) Rob, RN Service: Emergency Medicine Author Type: Registered Nurse Type: ED Notes Filed: 06/21/2017 3:51 PM Note Text: Bedside glucose 166. latic acid drawn and sent to lab. Pt tolerated well LACTIC ACID Collected: 06/21/2017 Status: F Source: [facility] 3:44 PM HEALTH SYSTEM REPOSITORY TYPE CODE TESTS RESULT OUT OF REFERENCE UNITS RANGE LAB LLA(LOINC) 0.4-2.0 mEq/L High alert Lactic acid 4.3 Performed By: #### LLA #### [facility] [address] [place] [id number] GLUCOSE METER Collected: 06/21/2017 Status: F Source: [facility] 3:42 PM HEALTH SYSTEM REPOSITORY TYPE CODE TESTS RESULT OUT OF REFERENCE UNITS RANGE LAB LGLUB(LOINC 70-99 mg/dL ) High Glucose Meter 166 Result Comment: MD NOTIFIED Testing performed at [address] [address] Performed By: #### LGLMT #### [facility] [address] [place], [place] [address] CT ABDOMEN AND PELVIS Observed: 06/21/2017 Status: F Source: [facility] WITH CONTRAST 2:55 PM HEALTH SYSTEM REPOSITORY Performed at [facility] APPROVED BY: Jer Villarreal MD EXAMINATION: CT [...] ED NOTE Observed: 06/21/2017 Status: COMPLETED Source: [place] 2:09 PM [facility] MAIN [place] REPOSITORY HNO ID: [id number] Author: Polina (Rn) HEMALATHA Brambila Service: Emergency Medicine Author Type: Registered Nurse Type: ED Notes Filed: 06/21/2017 2:10 PM Note Text: Patient up to BR, complaining of nausea and pain, MD notified and orders received. UA collected. URINALYSIS ROUTINE Collected: 06/21/2017 Status: F Source: [facility] 2:06 PM HEALTH SYSTEM REPOSITORY TYPE CODE [...] NEGATIVE LAB LSPG(LOINC 1.005-1.030 ) Specific 1.015 [place], Ur LAB LPHUR(LOIN 5.0-8.0 C) pH,Urine 7.0 [...] Urine MANY Performed By: #### LURIN #### [place] [address] Observed: 06/21/2017 Status: F Source: [facility] CULT URINE 2:06 PM HEALTH SYSTEM REPOSITORY Test performed at [facility] ORGANISM: Enterococcus faecalis (ID: 1) >100,000 CFU/ml Performed By: #### C_URI #### [facility] [address] [place] [id number] CHEST SINGLE VIEW Observed: 06/21/2017 Status: F Source: [facility] 12:59 PM HEALTH SYSTEM REPOSITORY Performed at [facility] APPROVED BY: Geovany Zuniga MD EXAMINATION: CHEST RADIOGRAPH (SINGLE VIEW AP OR PA) Clinical History: Epigastric pain M: XC1_3 Comparison: 10/30/2016 RESULT: Lines, tubes, and devices: None. Lungs and pleura: No consolidation. No lung mass. No pleural effusion. Cardiomediastinal silhouette: Normal cardiomediastinal silhouette. Other: IMPRESSION: No acute radiographic abnormality. ED PROV NOTE Observed: 06/21/2017 Status: COMPLETED Source: [place] 12:53 PM CLINIC MAIN CAMPUS REPOSITORY HNO ID: [id number] Author: Charleen Perry DO Service: Emergency Medicine [...] presenting with vomiting. History provided by: Patient educational sign language interpreter used: No Vomiting Severity: Moderate Duration: 2 [...] patient and she wants to go to [facility]. Dr. Israel physician from [facility] accepted the patient for transfer/admission. Encounter Diagnosis ICD-10-CM 1. Urinary tract infection with hematuria, site unspecified N39.0 R31.9 2. SIRS (systemic inflammatory response syndrome) (HCC) R65.10 3. Hyperglycemia R73.9 4. Abdominal pain, unspecified abdominal location R10.9 Plan The Patient was TRANSFERRED to: [place] Condition at time of disposition: stable SIGNATURE: Charleen Perry DO EKG Interpretation: RHYTHM: Normal sinus rhythm at 95 beats per minute AXIS: Normal axis INTERVALS: Normal CT interval QRS COMPLEX: Normal ST SEGMENT: Normal ST-T segments QT INTERVAL: Normal COMPARED WITH PRIOR: unchanged Charleen Perry DO 06/21/171952 ED NOTE Observed: 06/21/2017 Status: COMPLETED Source: [place] 12:50 PM [facility] MAIN [place] REPOSITORY HNO ID: [id number] Author: Milka (Rn) HEMALATHA Rivas Service: Emergency Medicine Author Type: Registered Nurse Type: ED Notes Filed: 06/21/2017 12:51 PM Note Text: Pt alert and oriented. resps easy. IV started and labs drawn per order. Pt ambulates without difficulty. at bedside HEMOGRAM/DIFF Collected: 06/21/2017 Status: F Source: [facility] 12:37 PM HEALTH SYSTEM REPOSITORY TYPE CODE [...] 1.51 LAB LMONN(LOIN 0.20-1.00 thou/cmm C) Abs. [place] 0.42 LAB LEOSN(LOIN 0.00-0.41 thou/cmm C) Abs. Eosin 0.00 LAB LBASN(LOIN 0.00-0.08 thou/cmm C) Abs. Baso 0.01 Performed By: #### LCBCD #### [place] [address] TROPONIN I Collected: 06/21/2017 Status: F Source: [facility] 12:37 PM HEALTH SYSTEM REPOSITORY TYPE CODE TESTS RESULT OUT OF REFERENCE UNITS RANGE LAB LTRP(LOINC) <=0.07 ng/mL Troponin I <0.03 Performed By: #### LTRP #### [place] [address] LIPASE BLOOD Collected: 06/21/2017 Status: F Source: [facility] 12:37 PM HEALTH SYSTEM REPOSITORY TYPE CODE TESTS RESULT OUT OF REFERENCE UNITS RANGE LAB LLIP(LOINC) 73-393 U/L Lipase Blood 346 Performed By: #### LLIP #### [facility] [address] [place] [id number] COMPREHENSIVE PANEL Collected: 06/21/2017 Status: F Source: [facility] 12:37 PM HEALTH SYSTEM REPOSITORY TYPE CODE TESTS RESULT OUT OF REFERENCE UNITS RANGE LAB ELECTRONIC SYSTEM ENGINEER(LOINC) 136-145 mEq/L Low Sodium Blood 130 LAB [...] 41 Ratio Performed By: #### LP14 #### [facility] [address] [place] [id number] MDRD EGFR Collected: 06/21/2017 Status: F Source: [facility] 12:37 PM HEALTH SYSTEM REPOSITORY TYPE CODE TESTS RESULT OUT OF RANGE REFERENCE UNITS LAB LGFRF(LOINC >60mL/min/1.73m ) 2 eGFR 49.33 Result Comment: If the patient is , multiply the result by 1.210. Performed By: #### LGFR #### [facility] [address] [place] [address] LACTIC ACID Collected: 06/21/2017 Status: F Source: [facility] 12:37 PM HEALTH SYSTEM REPOSITORY TYPE CODE TESTS RESULT OUT OF REFERENCE UNITS RANGE LAB LLA(LOINC) 0.4-2.0 mEq/L High alert Lactic acid 7.3 Performed By: #### LLA #### [facility] [address] [place] [address] ED NOTE Observed: 06/21/2017 Status: COMPLETED Source: [place] 12:27 PM CLINIC MAIN CAMPUS REPOSITORY HNO ID: [id number] Author: Abelino AbrahamRn) HEMALATHA Mosqueda Service: Emergency Medicine Author Type: Registered Nurse Type: ED Notes Filed: 06/21/2017 12:28 PM Note Text: Pt describes nausea, vomiting and diarrhea for 2 days. Pt states no improvement. Also c/o hot and cold flashes. MALBR Collected: 06/09/2017 Status: F Source: [facility] 6:30 PM [facility] REPOSITORY TYPE CODE TESTS RESULT OUT OF REFERENCE UNITS RANGE LAB CRU(LOINC) mg/dL U Creatinine 49.8 LAB MRUR(LOINC mcg/dL ) U Microalb 3360 LAB RMAL(LOINC 0.0-24.9 mcg/mg ) U Ratio High Alb/Cre 67.5 Performed By: #### MALBR #### [facility] [address] [place] [address] 12 LEAD ELECTROCARDIOGRAM Observed: 06/09/2017 Status: F Source: [place] 2:53 PM [facility] REPOSITORY [facility] Cardiovascular Services [address] [place] [address] 12 Lead EKG 06/03/17 1924 MR#: [id number] Acct: [id number] Name: YANCY SHAW Rep #: [id number] : 1965 51 From: Joseph Yost MD [...] ECG Confirmed by EFRA TELLEZ, JOSEPH ([id number]), content editor JOHANA LOYA ([id number]) on 06/09/2017 2:53:11 PM Referred By: CHAVA Confirmed By:JOSEPH YOST MD 06/09/17 1453 Date Joseph Yost MD CC: Simone Grey MD Signed T4 Collected: 06/09/2017 Status: F Source: [facility] 7:42 AM [facility] REPOSITORY TYPE CODE TESTS RESULT OUT OF RANGE REFERENCE UNITS LAB T4(LOINC) 4.7-11.4 mcg/dL High T4 14.7 Result Comment: Please note ? as of 01/02/17 new pediatric reference intervals were added for this test. Performed By: #### T4, TSH, T3, A1C #### [address] [address] TSH Collected: 06/09/2017 Status: F Source: [facility] 7:42 AM [facility] REPOSITORY TYPE CODE TESTS RESULT OUT OF RANGE REFERENCE UNITS LAB TSH(LOINC) 0.360-3.740 mcIU/mL TSH 2.000 Result Comment: Please note ? as of 01/02/17 new pediatric reference intervals were added for this test. Performed By: #### T4, TSH, T3, A1C #### [address] [address] T3 Collected: 06/09/2017 Status: F Source: [facility] 7:42 AM [facility] REPOSITORY TYPE CODE TESTS RESULT OUT OF RANGE REFERENCE UNITS LAB T3(LOINC) 60-181 ng/dL Total T3 111 Result Comment: Please note ? as of 01/02/17 new pediatric reference intervals were added for this test. Performed By: #### T4, TSH, T3, A1C #### [address] [address] A1C Collected: 06/09/2017 Status: F Source: [facility] 7:42 AM [facility] REPOSITORY TYPE CODE TESTS RESULT OUT OF RANGE REFERENCE UNITS LAB A1C(LOINC) 4.0-6.0 % High Hgb A1c 9.4 Performed By: #### T4, TSH, T3, A1C #### [facility] [address] [place] [address] BEDSIDE GLUCOSE Collected: 06/04/2017 Status: F Source: [place] 4:34 AM [facility] REPOSITORY TYPE CODE TESTS RESULT OUT OF REFERENCE UNITS RANGE LAB L501.080 70-110 mg/dL High BEDSIDE GLU 297 Result Comment: MANAGEMENT OF PATIENT CARE PER NURSING PROTOCOL Performed By: #### L501.080 #### [facility] Point of Care [address] [place] [address] CBC-COMPLETE BLOOD CNT Collected: 06/04/2017 Status: F Source: [place] NO DIFF 3:54 AM [facility] REPOSITORY TYPE CODE TESTS RESULT OUT [...] MPV 9.7 Performed By: #### L100.0500 #### [facility] [address] [place], [address] BEDSIDE GLUCOSE Collected: 06/04/2017 Status: F Source: [place] 3:28 AM [facility] REPOSITORY TYPE CODE TESTS RESULT OUT OF REFERENCE UNITS RANGE LAB L501.080 70-110 mg/dL High BEDSIDE GLU 369 Result Comment: MANAGEMENT OF PATIENT CARE PER NURSING PROTOCOL Performed By: #### L501.080 #### [facility] Point of Care [address] [place] [address] BEDSIDE GLUCOSE Collected: 06/04/2017 Status: F Source: [place] 1:59 AM [facility] REPOSITORY TYPE CODE TESTS RESULT OUT OF REFERENCE UNITS RANGE LAB L501.080 70-110 mg/dL High BEDSIDE GLU 427 Result Comment: MANAGEMENT OF PATIENT CARE PER NURSING PROTOCOL Performed By: #### L501.080 #### [facility] Point of Care [address] [place] [address] HISTORY AND PHYSICAL Observed: 06/04/2017 Status: F Source: [place] EXAM 1:38 AM [facility] REPOSITORY [facility] Medical Records Department [address] [place] [address] History and Physical 06/03/179 MR#: [id number] Acct: [id number] Name: YANCY SHAW Rep #: [id number] : 1965 51 From: Darline Penaloza MD [...] 0117 Code Visit Inpatient E AND M: 46930 Init Hosp L3 06/04/17 0117 <Electronically signed [...] Source: [place] DNA BY PCR 1:20 AM [facility] REPOSITORY TYPE CODE TESTS RESULT OUT OF RANGE REFERENCE UNITS LAB L8200.1100 Negative Normal MRSA Negative RESULT Performed By: #### L8200.1000 #### [facility] [address] [place], [place], [address] BEDSIDE GLUCOSE Collected: 06/04/2017 Status: F Source: [place] 1:15 AM [facility] REPOSITORY TYPE CODE TESTS RESULT OUT OF REFERENCE UNITS RANGE LAB L501.080 70-110 mg/dL High alert BEDSIDE GLU 457 Result Comment: Dr Orders Followed MANAGEMENT OF PATIENT CARE PER NURSING PROTOCOL Performed By: #### L501.080 #### [facility] Point of Care [address] [place], [place] [address] BEDSIDE GLUCOSE Collected: 06/03/2017 Status: F Source: [place] 11:22 PM [facility] REPOSITORY TYPE CODE TESTS RESULT OUT OF REFERENCE UNITS RANGE LAB L501.080 70-110 mg/dL High alert BEDSIDE GLU > 500 Result Comment: Dr Orders Followed MANAGEMENT OF PATIENT CARE PER NURSING PROTOCOL Performed By: #### L501.080 #### [facility] Point of Care [address] [place] [address]. [place], [place] [address] TROPONIN-I Collected: 06/03/2017 Status: F Source: [place] 10:35 PM [facility] REPOSITORY Order Comment: 'TROP' Serial specimen #1, #2, #3, or #4: 1 TYPE CODE TESTS RESULT OUT OF RANGE REFERENCE UNITS LAB L501.4010 <0.06 ng/mL Normal < 0.02 TROPONIN-I Result Comment: TROPONIN-I EXPECTED VALUES <0.05 NEGATIVE 0.06 - 0.59 AT RISK OF LA > OR = 0.60 SUGGEST LA Performed By: #### L501.4010 #### [facility] [address] [place], [place], [address] BLOOD GASES BY [facility] Collected: 06/03/2017 Status: F Source: [place] 7:41 PM [facility] REPOSITORY TYPE CODE TESTS RESULT OUT [...] ISTAT 96 Performed By: #### L9000.0800 #### [facility] Point of Care [address] [place] [address] URINE DRUG SCREEN Collected: 06/03/2017 Status: F Source: [place] (MECHE) 7:40 PM [facility] REPOSITORY Order Comment: Has pt arrived? Y [...] Normal NEGATIVE Performed By: #### L505.5000 #### [facility] [address] [place], [place], [address] ,URINE Collected: 06/03/2017 Status: F Source: [place] 7:40 PM [facility] REPOSITORY TYPE CODE TESTS RESULT OUT OF REFERENCE UNITS RANGE LAB L400.8000 Negative Normal HCGUQUAL Negative Result Comment: Very dilute urine specimens, as indicated by a low specific gravity, may not contain event marketing representative levels of hCG. If is still suspected, a first morning urine specimen should be collected 48 hours later and tested. Performed By: #### L400.7600 #### [facility] [address] [place], [place], [address] URINALYSIS, COMPLETE Collected: 06/03/2017 Status: F Source: [place] 7:40 PM [facility] REPOSITORY Order Comment: How was Urine Obtained? [...] 0 SEEN Performed By: #### L400.0001 #### [facility] [address] [place], [address] LACTIC ACID Collected: 06/03/2017 Status: F Source: [place] 7:10 PM [facility] REPOSITORY Order Comment: Yes/No query for Sepsis Lactate Rule Y TYPE CODE TESTS RESULT OUT OF RANGE REFERENCE UNITS LAB L503.6005 0.4-2.0 mmol/L Normal LACTIC ACID 1.0 Performed By: #### L503.6005 #### [facility] [address] [place], [address] CHEST 1 VIEW Observed: 06/03/2017 Status: F Source: [place] (PORTABLE) 7:01 PM [facility] REPOSITORY [facility] Imaging Services [address] [place] [address] Chest 1 View (Portable) MR#: [id number] Acct: [id number] Name: YANCY SHAW Rep #: [id number] : 1965 F 51 From: Froylan Jimenez DO PCP: Simone Grey MD Status: REG ER Study: Chest 1 View (Portable) Date of Exam: 06/03/17 Exam# [id number] Ordering Dr: Edwina Lloyd MD STUDY: X-RAY [...] Froylan Jimenez DO at 20:08 EST Tel [phone], Service support , CC: Edwina Lloyd MD; Simone Grey MD Manager Land: Signed BRAIN/HEAD WITHOUT Observed: 06/03/2017 Status: F Source: [place] CONTRAST 7:01 PM [facility] REPOSITORY [facility] Imaging Services [address] [place] [address] Brain/Head without Contrast MR#: [id number] Acct: [id number] Name: YANCY SHAW Rep #: [id number] : 1965 F 51 From: Froylan Jimenez DO PCP: Simone Grey MD Status: REG ER Study: Brain/Head without Contrast Date of Exam: 06/03/17 Exam# [id number] Ordering Dr: Edwina Lloyd MD STUDY: CT [...] Froylan Jimenez DO at 20:13 EST Tel [phone], Service support , CC: Edwina Lloyd MD; Simone Grey MD Manager Land: Signed BEDSIDE GLUCOSE Collected: 06/03/2017 Status: F Source: [place] 6:57 PM [facility] REPOSITORY TYPE CODE TESTS RESULT OUT OF REFERENCE UNITS RANGE LAB L501.080 70-110 mg/dL High alert BEDSIDE GLU > 500 Result Comment: Orders Followed MANAGEMENT OF PATIENT CARE PER NURSING PROTOCOL Performed By: #### L501.080 #### [facility] [place] [address] CBC W/DIFF, AUTOMATED Collected: 06/03/2017 Status: F Source: [place] 6:50 PM [facility] REPOSITORY TYPE CODE TESTS RESULT OUT [...] Lymph 0.80 Performed By: #### L100.0100 #### [facility] [address] [place], [place], [address] PROTHROMBIN TIME W/INR Collected: 06/03/2017 Status: F Source: [place] 6:50 PM [facility] REPOSITORY TYPE CODE TESTS RESULT OUT OF RANGE REFERENCE UNITS LAB L300.4150 11.7-14.9 SECONDS High PROTIME 15.0 LAB L300.4200 Normal INR 1.2 Performed By: #### L300.3900, L300.4310 #### [facility] [address] [facility] [place], [address] PARTIAL THROMBOPLAST Collected: 06/03/2017 Status: F Source: [place] TIME 6:50 PM [facility] REPOSITORY TYPE CODE TESTS RESULT OUT OF REFERENCE UNITS RANGE LAB L300.4310 24.1-36.2 Seconds High PTT 61.2 Performed By: #### L300.3900, L300.4310 #### [facility] [address] [facility] [place], [address] COMPREHENSIVE METABOLIC Collected: 06/03/2017 Status: F Source: [place] PROFIL 6:50 PM [facility] REPOSITORY Order Comment: 'TROP' Serial specimen #1, [...] Performed By: #### L500.4050, L501.2450, L501.4010 #### [facility] [address] [place], [place], [address] LIPASE Collected: 06/03/2017 Status: F Source: [place] 6:50 PM [facility] REPOSITORY Order Comment: 'TROP' Serial specimen #1, #2, #3, or #4: 1 TYPE CODE TESTS RESULT OUT OF RANGE REFERENCE UNITS LAB L501.2450 73-393 U/L Normal LIPASE 204 Performed By: #### L500.4050, L501.2450, L501.4010 #### [facility] [address] [place], [address] TROPONIN-I Collected: 06/03/2017 Status: F Source: [place] 6:50 PM [facility] REPOSITORY Order Comment: 'TROP' Serial specimen #1, #2, #3, or #4: 1 TYPE CODE TESTS RESULT OUT OF RANGE REFERENCE UNITS LAB L501.4010 <0.06 ng/mL Normal < 0.02 TROPONIN-I Result Comment: TROPONIN-I EXPECTED VALUES <0.05 NEGATIVE 0.06 - 0.59 AT RISK OF LA > OR = 0.60 SUGGEST LA Performed By: #### L500.4050, L501.2450, L501.4010 #### [facility] [address] [place], [address] ALCOHOL, BLOOD Collected: 06/03/2017 Status: F Source: [place] (MEDICAL)-SERUM 6:50 PM [facility] REPOSITORY TYPE CODE TESTS RESULT OUT [...] fatal coma Performed By: #### L501.9100 #### [facility] [address] [place], [place], [address] ACETONE SERUM Collected: 06/03/2017 Status: F Source: [place] 6:50 PM [facility] REPOSITORY TYPE CODE TESTS RESULT OUT OF RANGE REFERENCE UNITS LAB L501.6900 NEG Normal ACETONE SERUM NEGATIVE Performed By: #### L501.6900 #### [facility] [address] [place], [place], [address] OSMOLALITY, SERUM Collected: 06/03/2017 Status: F Source: [place] 6:50 PM [facility] REPOSITORY TYPE CODE TESTS RESULT OUT OF RANGE REFERENCE UNITS LAB L501.7300 275-295 mOsm/KG High 333 OSMOLALITY,S ER Performed By: #### L501.7300 #### [facility] [address] [place], [place], [address] ALLERGIES ALLERGIES DATE TYPE / NAME / CODE REACTION SEVERITY SOURCE CODE 05/19/2018 Drug Penicillins/F0010 Laryngospasms Unknown [place] Allergy/41 82540(RXNORM) Community 9481147([facility]) Repository 05/19/2018 Drug latex/[id number]( Unknown Unknown [place] Allergy/41 RXNORM) Community 1085584([facility]) Repository 05/19/2018 Drug metformin/N112009 Nausea SV [place] Allergy/41 534(RXNORM) Community 2857430([facility]) Repository 05/19/2018 Drug aspartame/I365020 Swelling Unknown [place] Allergy/41 605(RXNORM) Community 2111687([facility]) Repository 11/27/2014 [facility]EX [facility] 2167133[facility] Repository 04/29/2005 DRUG CODEINE [facility] Other 1859479([facility]) Repository 04/29/2005 Drug PENICILLINS HIVES [place] Class/4195 Clinic Other 87382([facility]) Repository ENCOUNTERS ENCOUNTERS ADMIT/DISCHARGE ACCOUNT ADMITTING ENCOUNTER LOCATION SOURCE NUMBER CLASS 05/20/2018 [id number] Ambulatory BMSBuilding:Francisca Gaffney MS.BIM [facility] Repository 05/19/2018/05/19/20 [id number] Krisnha Del Castillo Ambulatory [address] ing:XT9Clyd: Repository LK072Lji: 1 05/19/2018 [id number] Krishna Del Castillo Amb[facility] 05/19/2018 [id number] Ambulatory [facility] ing:LAB Repository 02/08/2018 [id number] Ambulatory BMSBuilding:Francisca Gaffney MS.BIM [facility] Repository 11/05/2017 [id number] Ambulatory [facility] ing:CT Repository 10/14/2017/10/15/19 [id number] Ambulatory BMSBuilding:B [place] 18 MS.[facility] Repository 09/20/2017 [id number] Ambulatory BMSBuilding:B [place] MS.[facility] Repository 07/05/2017/07/05/19 [id number] Ambulatory BMSBuilding:B [place] 18 MS.[facility] Repository 06/21/2017/06/24/19 [id number] KETAN ERAZO Ambulatory [place] 18 Clinic Other [place] Repository 06/03/2017/06/06/20 [id number] [place], Inpatient [place] 17 [place] Encounter [facility] ing:ICURoom: Repository CFL35Wla: 1 PAYERS PAYERS ENCOUNTER GUARANTOR PAYER SUBSCRIBER SOURCE 05/20/2018 TREY Gaffney [id number] W Insurance:SEBASTIANPeterson ADELAIDAB: [facility] [id number] PLANPolicy Number: Repository [id number]: 419 [id number] [phone] () Date:0888-28-69QT [address] [place] [address] 47526XO: 05/20/2018 Secondary NOT GIVENUNK [place] Insurance:SELF PAY [facility] Number: Effective Repository Date:2018-05-20 05/19/2018 TREY Gaffney [id number] W [facility]: [facility] [id number], [place] PLANPolicy Number: Repository [id number]: 419 [id number] [phone] () Date:4537-38-86DC [address] [place] [address] 29796OW: 05/19/2018 Secondary NOT GIVENUNK [place] Insurance:SELF PAY [facility] Number: Effective Repository Date:2018-05-19 05/19/2018 TREY Gaffney [id number] W Insurance:[facility]: [facility] [id number], [place] PLANPolicy Number: Repository [id number]: 419 [id number] [phone] (HP) Date:8845-42-84TO [address] [place] [address] [place] [address]IB: 05/19/2018 Secondary NOT GIVENUNK [place] Insurance:SELF PAY [facility] Number: Effective Repository Date:2018-05-19 05/19/2018 TREY Primary YANCY Gaffney [id number] W Insurance:JENNYFER FREITASB: [facility] [id number], [place] PLANPolicy Number: Repository [id number]: 419 [id number] [phone] (HP) Date:0077-34-65MH [address] [place] [address] 19477KO: 05/19/2018 Secondary NOT GIVENUNK [place] Insurance:SELF PAY [facility] Hospital Number: Effective Repository Date:2018-05-19 02/08/2018 Trey Primary YANCY Gaffney [id number] W Insurance:JENNYFER FREITASB: [facility] [id number], [place] PLANPolicy Number: Repository 22593Ivt: 419 [id number] [phone] (HP) Date:5690-30-62EO [address] [place] [address] 00177FD: 02/08/2018 Secondary NOT GIVENUNK [place] Insurance:SELF PAY [facility] Hospital Number: Effective Repository Date:2018-02-03 11/05/2017 Trey Primary YANCY Gaffney [id number] W Insurance:JENNYFER FREITASB: [facility] [id number], [place] PLANPolicy Number: Repository 18396Dyg: 419 [id number] [phone] (HP) Date:8439-21-78SL [address] [place] [address] [place] 19608FG: 11/05/2017 Secondary NOT GIVENUNK [place] Insurance:SELF PAY [facility] Hospital Number: Effective Repository Date:2017-10-14 10/14/2017 Trey Primary YANCY [id number] Insurance:JENNYFER FREITASB: [facility] [id number], [place] PLANPolicy Number: Repository 11685Prh: 419 [id number] [phone] (HP) Date:6599-15-49PB [address] [place], [place] [address]SHRUTHI 810[address]QT: 10/14/2017 Secondary NOT GIVENUNK [place] Insurance:SELF PAY [facility] Hospital Number: Effective Repository Date:2017-10-14 09/20/2017 Trey Primary YANCY [id number] Insurance:JENNYFER FREITASB: [facility] [id number], [place] PLANPolicy Number: Repository 720[address]Rlm: 419 [id number] [phone] (HP) Date:3070-10-53WJ [address] [place] [address] [place] [address]HR: 09/20/2017 Secondary NOT GIVENUNK [place] Insurance:SELF PAY [facility] Hospital Number: Effective Repository Date:2017-09-20 07/05/2017 Trey Primary YANCY [id number] Insurance:JENNYFER FREITASB: [facility] [id number], [place] PLANPolicy Number: Repository [id number]: 419 [id number] [phone] (HP) Date:0878-36-30II [address] [place] [address] 78487AT: 07/05/2017 Secondary NOT GIVENUNK [place] Insurance:SELF PAY [facility] Hospital Number: Effective Repository Date:2017-06-30 06/03/2017 Trey Primary YANCY [id number] Insurance:JENNYFER FREITASB: [facility] [id number], [place] PLANPolic Number: Repository [id number]: (017) [id number] [phone] (HP) Date:2984-48-89YQ [address] [place] [address] [place] [address]RU: 06/03/2017 Secondary NOT GIVENUNK [place] Insurance:SELF PAY [facility]: Effective Repository Date:2017-06-03
== END 2018-05-19 22:08 | disposition left against medical advice (07) ==
LOC: ED 16:00 → MS3 16:51
PROVIDERS: Emergency Provider Emergency Medicine; Family Provider Internal Medicine; PCP Internal Medicine
DX: E11.65 Type 2 diabetes mellitus with hyperglycemia (principal); Z91.19 Patient's noncompliance with other medical treatment and regimen; E78.5 Hyperlipidemia, unspecified; K21.9 Gastro-esophageal reflux disease without esophagitis; F41.9 Anxiety disorder, unspecified; Z79.4 Long term (current) use of insulin; E11.22 Type 2 diabetes mellitus with diabetic chronic kidney disease; I12.9 Hypertensive chronic kidney disease with stage 1 through stage 4 chronic kidney disease, or unspecified chronic kidney disease; N18.9 Chronic kidney disease, unspecified; E87.1 Hypo-osmolality and hyponatremia; Z79.899 Other long term (current) drug therapy
CPT/HCPCS: 36415; 80048; 82009; 82043; 82962; 83036; 84443; 85025; 96361; 96365; 99218; 99282; J7030; A4216; G0378

== ENCOUNTER → 2018-06-22 15:20 | Outpatient (CLI) | payer MEDICAID, SELFPAY ==
[2018-06-22 13:13] VITALS: BMI 35.6
[2018-06-22 16:42] LABS: Mucous, Urine 0 SEEN /hpf (<or=2+); Red Blood Cells-Urine 0 SEEN /hpf (0-5)
[2018-06-22 16:59] LABS: Color, Urine Yellow (Yellow); Glucose, Dipstick 1000 mg/dl (Normal); Ketone-Dipstick Negative (Negative); Leukocyte Esterase-Dipstick 500 /ul (Negative); Nitrite-Dipstick Positive (Negative); Occult Blood-Urine 50 /ul (Negative); Protein-Dipstick 500 mg/dl (Negative); Specific Gravity, Urine 1.015 (1.002-1.030); Urine Bilirubin Dipstick Negative (Negative); Urine Clarity Cloudy (Clear); Urine Urobilinogen Normal (Normal)
[2018-06-22 17:22] LABS: White Blood Cells >100 SEEN /hpf (0-5)
[2018-06-22 17:23] LABS: Bacteria 2+ /hpf (None Seen); Squamous Epithelial Cells - UA 0-5 SEEN /hpf (5-10)
== END ==
PROVIDERS: Family Provider Internal Medicine; PCP Internal Medicine; Referring Provider Nurse Practitioner Family; Visit Provider Nurse Practitioner Family
DX: R30.0 Dysuria (principal)
CPT/HCPCS: 81001; 87077; 87086; 87088; 87186

== ENCOUNTER 2018-08-04 07:50 | Outpatient (RCR) | payer MEDICAID, SELFPAY ==
[2018-08-03 13:09] VITALS: BMI 37.5
[2018-08-04 09:13] VITALS: BP 137/69; PULSE 75; RESP 18; TEMP 36.5; BMI 37.5
--- NOTE | 2018-08-04 12:12 | PCM.WC.HP ---
(1) Chronic ulcer of left foot with fat layer exposed Status: Chronic Current Visit: Yes Code(s): L97.522 - Non-pressure chronic ulcer of other part of left foot with fat layer exposed (2) Ulcer of left lower extremity with fat layer exposed Status: Acute Current Visit: Yes Code(s): L97.922 - Non-pressure chronic ulcer of unspecified part of left lower leg with fat layer exposed (3) PVD (peripheral vascular disease) Status: Suspected Current Visit: Yes Code(s): I73.9 - Peripheral vascular disease, unspecified (4) Venous insufficiency Status: Acute Current Visit: Yes Code(s): I87.2 - Venous insufficiency (chronic) (peripheral) (5) Lower extremity edema Status: Acute Current Visit: Yes Code(s): R60.0 - Localized edema (6) Xerosis cutis Status: Acute Current Visit: Yes Code(s): L85.3 - Xerosis cutis (7) Type 2 diabetes mellitus without complications Status: Acute Current Visit: Yes Code(s): E11.9 - Type 2 diabetes mellitus without complications History of Present Illness Date of Service: 08/04/18 Chief Complaint: left lower leg and foot ulcer History of Wound: This 52-year-old diabetic female was consulted to the wound healing center for a left lower leg ulcer and a left plantar medial foot ulcer. The patient says the lower leg ulcer has been present for approximately 1 month and the foot ulcer has been present for approximately 2 weeks. She says she has not been doing much to treat these sites on her own other than keeping a bandage over them. She denies any surrounding redness, purulence, or increased warmth to the areas. She does admit to being diabetic and says that she has been doing much better keeping her blood sugars under control. Patient says she has never worn any kind of compression to the lower extremities. She does relate that her feet have been dry, but she has not been applying any lotion to them on her own. Patient currently denies any feelings of nausea, vomiting, fever, chills. Past Medical History Past Medical History: Chronic Problems (Last Reviewed 08/03/18 @ 13:09 by Justine Swan) Abdominal pain (Chronic) Hypokalemia (Chronic) Hypomagnesemia (Chronic) Diabetes (Chronic) Anxiety (Chronic) Depression with anxiety (Chronic) Type 2 diabetes mellitus (Chronic) Hyperlipidemia (Chronic) HTN (hypertension) (Chronic) CKD (chronic kidney disease) (Chronic) Chronic ulcer of left foot with fat layer exposed (Chronic) Diabetic foot ulcer (Chronic) Surgical History: - - colonoscopy, egd, explorotory lap Allergies/Adverse Reactions: Allergies metformin Allergy (Severe, Verified 08/03/18 13:07) Nausea aspartame Allergy (Verified 08/03/18 13:07) Swelling latex Allergy (Verified 08/03/18 13:07) Unknown Penicillins Allergy (Verified 08/03/18 13:07) Laryngospasms Home Medications: Ambulatory Orders Medication Instructions Recorded Aspirin [Aspirin, Baby] 81 mg PO DAILY@0800 09/10/15 Folic Acid 1 mg PO DAILY@0800 09/10/15 hydrochlorothiazide 25 mg tablet 25 mg PO QAM #90 tab 10/14/17 lisinopril 40 mg tablet 40 mg PO QDAY #90 tab 01/24/18 ALPRAZolam [Xanax] 0.5 mg PO DAILY 05/19/18 Ibuprofen 800 mg PO Q8H PRN 05/19/18 blood sugar diagnostic strips See Dose Instructions .ROUTE 05/20/18 .MEDSUPPLY #100 ea insulin aspart U- 100 100 unit/mL 8 unit SC TID #15 ml 05/20/18 subcutaneous pen insulin glargine (U-100) 100 30 unit SC QHS ml 05/20/18 unit/mL (3 mL) subcutaneous pen lancets 28 gauge See Dose Instructions .ROUTE 05/20/18 .MEDSUPPLY #200 ea atorvastatin 40 mg tablet 40 mg PO QHS #90 tab 05/27/18 oxybutynin chloride 5 mg tablet 5 mg PO TID #90 tab 06/22/18 pantoprazole 40 mg tablet,delayed 40 mg PO DAILY #90 tab 07/12/18 release - Family History Maternal Unknown Paternal Unknown Offspring - - Daughter of drug overdose Smoking Status: Never smoker Review of Systems Constitutional: Denies: Chills, Fever, Weight Change Cardiovascular: Denies: Chest Pain, Palpitations Respiratory: Denies: Cough, Shortness of Breath Gastrointestinal: Denies: Diarrhea, Nausea, Vomiting Skin: Reports: - - Ulcer to left lower leg and left plantar medial foot - Physical Exam Vital Signs Temp Pulse Resp BP 97.7 F L 75 18 137/69 H 08/04/18 09:13 08/04/18 09:13 08/04/18 09:13 08/04/18 09:13 General: Alert, Oriented x3, Cooperative, No apparent distress Extremities: No cyanosis, Capillary Refill Less than 3 Seconds, No Calf Tenderness - Negative Franklin and Osborn sign, Diminished Peripheral Pulses - DP pulses palpable and PT pulses nonpalpable due to lower extremity edema, Edema - Bilateral pitting lower extremity edema Skin: Ulcer/ Wound - Ulcers with fat layer exposed noted to left lower leg and left plantar medial foot. Measurements are noted below. The plantar medial foot ulcer appears to be more of a superficial fissure. Ulcer bases noted to be a mixture of adherent slough, fibrin, granular tissue as well as some surrounding hyperkeratotic tissue. Dryness to the plantar feet. There is no purulence, no malodor, no streaking cellulitis, no increased warmth, no probing to bone, no tracking, no undermining. Wound Measurements and Assessment WC - Nurse 1 - General Ulcer Measurement Start: 08/04/18 09:13 Freq: Status: Active Protocol: Activity Type Activity Date Activity User E-Sign Co-Sign Detail Recorded Client Recorded Date Recorded By Document 08/04/18 09:13 [id number] 08/04/18 09:25 RB 08/04/18 09:13 Wound Center Nurse 1 [Ulcer Assessment] 2. L foot plantar -Current Size (cm) - Length 0.3 -Current Size (cm) - Width 1.8 -Current Size (cm) - Depth 0.1 -Total Square Cm 0.54 -Photo Taken Yes -Tunneling No -Undermining/Tunneling No -Circular Undermining No -Exudate Amt None Present -Wound Margin Distinct, Outline Attached -Granulation Amt Small (1-33%) -Granulation Quality Gruver -Slough/Fibrin Yes -Necrosis Amt Large (67-100%) -Necrotic Tissue Type Adherent Slough -Structure Exposed N/A -Texture (Flakita-wound Skin Appearance) Assessed Callus -Moisture (Flakita-wound Skin Appearance Assessed ) Dry/Scaly -Color (Flakita-wound Skin Appearance) Assessed -Temperature (Flakita-wound Skin No Abnormality Appearance) (Pt Warm) -Tenderness on Palpation (Flakita-wound No Skin Appearance) -Ulcer Cleansing Rinsed/ Irrigated with Saline -Foul Odor after Cleansing No -Anesthetic Used 5% Lidocaine Gel 1. L medial michaud -Combined with other wound No -Current Size (cm) - Length 1.3 -Current Size (cm) - Width 1.4 -Current Size (cm) - Depth 0.1 -Total Square Cm 1.82 -Photo Taken Yes -Tunneling No -Undermining/Tunneling No -Circular Undermining No -Exudate Amt None Present -Wound Margin Distinct, Outline Attached -Granulation Amt Small (1-33%) -Granulation Quality Gruver -Slough/Fibrin Yes -Necrosis Amt Large (67-100%) -Necrotic Tissue Type Adherent Slough -Structure Exposed N/A -Texture (Flakita-wound Skin Appearance) Assessed -Moisture (Flakita-wound Skin Appearance Dry/Scaly ) -Color (Flakita-wound Skin Appearance) Assessed -Temperature (Flakita-wound Skin No Abnormality Appearance) (Pt Warm) -Tenderness on Palpation (Flakita-wound No Skin Appearance) -Ulcer Cleansing Wound Cleanser -Foul Odor after Cleansing No -Anesthetic Used 5% Lidocaine Gel [Edema Assessment] -Lower Limb Edema Present Yes -Right Calf (cm) 39.5 -Right Ankle (cm) 26.6 -Left Calf (cm) 41 -Left Ankle (cm) 26.5 WC - Nurse 2 - General Ulcer CM Notes Start: 08/04/18 09:13 Freq: Status: Active Protocol: Activity Type Activity Date Activity User E-Sign Co-Sign Detail Recorded Client Recorded Date Recorded By Document 08/04/18 09:52 DV [id number] 08/04/18 10:05 DV 08/04/18 09:52 Wound Center Nurse 2 [Procedure/Treatment] 2. L foot plantar -Time 09:56 -Correct Patient Yes -Correct Side, Site, Position Yes -Correct Procedure Yes -Procedure Performed Yes -Type of Procedure Debridement -Clinical Debridement Subcutaneous -Post Debridement Size (cm) - Length 0.8 -Post Debridement Size (cm) - Width 2.1 -Post Debridement Size (cm) - Depth 0.1 -Total Square Cm 1.68 -Wound/Ulcer Outcome Not Healed -Ulcer Cleansing Rinsed/ Irrigated with Saline -Foul Odor after Cleansing No -Bioengineered Tissue No -Bleeding Controlled with Pressure -Offloading No -Treatment Response Procedure Tolerated Well 1. L medial michaud -Time 09:56 -Correct Patient Yes -Correct Side, Site, Position Yes -Correct Procedure Yes -Procedure Performed Yes -Type of Procedure Debridement -Clinical Debridement Subcutaneous -Post Debridement Size (cm) - Length 1.5 -Post Debridement Size (cm) - Width 1.3 -Post Debridement Size (cm) - Depth 0.2 -Total Square Cm 1.95 -Wound/Ulcer Outcome Not Healed -Ulcer Cleansing Rinsed/ Irrigated with Saline -Foul Odor after Cleansing No -Bioengineered Tissue No -Bleeding Controlled with Pressure -Offloading No -Treatment Response Procedure Tolerated Well [See Physician Procedure note for Specifics] Pain Scale: 0-10 Numeric [Pain] -Is Patient Pain Free? Yes Musculoskeletal: Tenderness - With manipulation of ulcer site Neurological: Sensory exam intact to light touch and pain Psych/Mental Status: Normal Affect, Appropriate Debridement Note Post-Debridement Measurements/Treatment WC - Nurse 2 - General Ulcer CM Notes Start: 08/04/18 09:13 Freq: Status: Active Protocol: Activity Type Activity Date Activity User E-Sign Co-Sign Detail Recorded Client Recorded Date Recorded By Document 08/04/18 09:52 DV [id number] 08/04/18 10:05 DV 08/04/18 09:52 Wound Center Nurse 2 2. L foot plantar -Time 09:56 -Correct Patient Yes -Correct Side, Site, Position Yes -Correct Procedure Yes -Procedure Performed Yes -Type of Procedure Debridement -Clinical Debridement Subcutaneous -Post Debridement Size (cm) - Length 0.8 -Post Debridement Size (cm) - Width 2.1 -Post Debridement Size (cm) - Depth 0.1 -Total Square Cm 1.68 -Wound/Ulcer Outcome Not Healed -Ulcer Cleansing Rinsed/ Irrigated with Saline -Foul Odor after Cleansing No -Bioengineered Tissue No -Bleeding Controlled with Pressure -Offloading No -Treatment Response Procedure Tolerated Well 1. L medial michaud -Time 09:56 -Correct Patient Yes -Correct Side, Site, Position Yes -Correct Procedure Yes -Procedure Performed Yes -Type of Procedure Debridement -Clinical Debridement Subcutaneous -Post Debridement Size (cm) - Length 1.5 -Post Debridement Size (cm) - Width 1.3 -Post Debridement Size (cm) - Depth 0.2 -Total Square Cm 1.95 -Wound/Ulcer Outcome Not Healed -Ulcer Cleansing Rinsed/ Irrigated with Saline -Foul Odor after Cleansing No -Bioengineered Tissue No -Bleeding Controlled with Pressure -Offloading No -Treatment Response Procedure Tolerated Well Pain Scale: 0-10 Numeric Is Patient Pain Free? Yes Wound debrided: Left lower leg Laterality: Left Type of Debridement: Excisional debridement Anesthesia Used: 4% Lidocaine Solution Depth: in the subcutaneous layer Percentage of wound debrided: 100 Instrument Used: #15 blade Tissue Removed: Adherent slough, fibrin, hyperkeratotic tissue Severity: Fat Layer Exposed Amount of bleeding with debridement: Mild Bleeding Controlled with: Pressure Patient tolerated procedure well - Additional Wound Wound debrided: Left plantar medial foot Laterality: Left Type of Debridement: Excisional debridement Anesthesia Used: 4% Lidocaine Solution Depth: in the subcutaneous layer Percentage of wound debrided: 100 Instrument Used: #15 blade Tissue Removed: Adherent slough, fibrin, hyperkeratotic tissue Severity: Fat Layer Exposed Amount of bleeding with debridement: Mild Bleeding Controlled with: Pressure Patient tolerated procedure: Patient tolerated procedure well Assessment/Plan Active Problems (Last Reviewed 08/03/18 @ 13:09 by Justine Swan) Chronic ulcer of left foot with fat layer exposed (Chronic) Ulcer of left lower extremity with fat layer exposed (Acute) Venous insufficiency (Acute) Lower extremity edema (Acute) Xerosis cutis (Acute) Type 2 diabetes mellitus without complications (Acute) Assessment: Ulcer with fat layer exposed to left lower leg and foot. DM. Venous insuff. LE edema. Other comorbidities Plan: Initial patient examination and evaluation was performed. A subcutaneous debridement was performed as noted in the clinical panel. Once complete, the ulcer sites were carefully cleansed. The left lower leg ulcer site was then dressed with Amrita to the base, followed by dry sterile dressing. Patient was instructed to keep Vaseline to the feet at least twice a day and keep them covered and protected. Feet were then covered with Tubigrip for compression. The importance of keeping the ulcer sites offloaded was stressed in great detail again with the patient today. No cultures were taken and no antibiotics were prescribed today as there were no apparent signs of acute local bacterial infection. LVAS studies and venous Doppler exam was ordered for this patient. We will continue to monitor for these results. Dressing supplies were ordered for the patient. I also recommend nutritional supplementation with a high protein diet in order to help optimize ulcer healing potential. The patient was educated on all signs and symptoms of local and systemic infection, and she was instructed to go to the emergency room immediately should she notice any. All questions were answered to her satisfaction. The patient will follow up in clinic in 1 week to check on progress, or sooner if needed.
== END 2018-08-18 23:59 ==
LOC: WC 07:50
PROVIDERS: Family Provider Internal Medicine; PCP Internal Medicine; Visit Provider Podiatrist
DX: E11.621 Type 2 diabetes mellitus with foot ulcer (principal); L97.522 Non-pressure chronic ulcer of other part of left foot with fat layer exposed; R60.0 Localized edema; E11.51 Type 2 diabetes mellitus with diabetic peripheral angiopathy without gangrene; L85.3 Xerosis cutis; E11.22 Type 2 diabetes mellitus with diabetic chronic kidney disease; N18.9 Chronic kidney disease, unspecified; I12.9 Hypertensive chronic kidney disease with stage 1 through stage 4 chronic kidney disease, or unspecified chronic kidney disease; E78.5 Hyperlipidemia, unspecified; F41.9 Anxiety disorder, unspecified; F32.9 Major depressive disorder, single episode, unspecified; Z79.899 Other long term (current) drug therapy; Z79.4 Long term (current) use of insulin; L97.822 Non-pressure chronic ulcer of other part of left lower leg with fat layer exposed; E11.622 Type 2 diabetes mellitus with other skin ulcer
CPT/HCPCS: 11042; 99213; G0463

== ENCOUNTER 2018-08-15 02:44 | Emergency (ER) | payer MEDICAID, SELFPAY ==
[2018-08-15] VITALS (7 sets, daily range): BP systolic 128–193; BP diastolic 79–100; PULSE 71–86; RESP 18; TEMP 36.5; O2SAT 97–98; BMI 38.9
--- NOTE | 2018-08-15 03:02 | EKG12_ITS ---
Test Reason : CP Blood Pressure : / mmHG Vent. Rate : 079 BPM Atrial Rate : 079 BPM P-R Int : 200 ms QRS Dur : 080 ms QT Int : 412 ms P-R-T Axes : 042 001 037 degrees QTc Int : 472 ms Normal sinus rhythm Low voltage QRS Borderline ECG Confirmed by JAYSON TELLEZ, SADE ([id number]), video news editor RADHA MAYS ([id number]) on 08/17/2018 9:51:45 AM Referred By: SAUL Confirmed By:SADE TYLER MD
--- NOTE | 2018-08-15 03:02 | RAD_ITS ---
STUDY: X-RAY CHEST REASON FOR EXAM: Female, 52 years old. Chest pain, lower extremity edema, dizziness, nausea. TECHNIQUE: PA and lateral chest. COMPARISON: June 03, 2017. FINDINGS: The lungs are clear and expanded. Blunting of the right costophrenic angle on the lateral view compatible with pleural scarring or a small pleural effusion. Normal size heart. Normal mediastinum and rianna. Normal visualized pulmonary arteries. Normal visualized aortic arch and descending thoracic aorta. Normal visualized thoracic spine. Normal visualized ribs, clavicles, and shoulders. There is no demonstrated abnormality of the visualized soft tissue structures of the upper abdomen. RAD/Chest PA and Lateral IMPRESSION: Small right pleural effusion versus pleural scar. No focal infiltrates. Electronically Signed: Hipolito Ruiz MD at 3:38 EST , Service support ,
--- NOTE | 2018-08-15 03:07 | ED.DCSUM_ITS ---
- ER Visit Summary Date of Service: 08/15/18 Chief Complaint: [] Chest pain History of Present Illness: The patient is a 52 F with chest pain since yesterday at noon gradual onset continuous heaviness. Current severity is mild to moderate. Associate with nausea lightheadedness and dyspnea. She is having worsening pedal edema with a reported 20 pound weight gain in the last 2 weeks. She is on hydrochlorothiazide. She does have history of medication noncompliance. It appears she is not taking her lisinopril or her statins as she has multiple prescriptions over several months with multiple pills in the bottle. No history of CAD or stress test or heart cath in the past. EMS gave 4 baby aspirin. She does have hypertension, diabetes and high cholesterol. She denies any PE risk factors Physical Examination: [] Vital signs reviewed General: Well-nourished well-developed Head: Normocephalic atraumatic Eyes: Pupils equal round and reactive to light extraocular movements intact ENT: TMs clear no hemotympanum no trauma Neck: Nontender full range of motion Cardiovascular: Regular rate rhythm no murmurs normal S1-S2 Respiratory: No distress clear to auscultation bilaterally chest nontender Abdomen: Soft nontender nondistended normal bowel sounds no masses Back: Nontender no CVA tenderness Extremities: Nontender active range of motion ?4 extremities no trauma. She does have 2+ lower extremity. Pedal edema pitting to the upper shins bilateral Skin: Normal color no trauma Neuro alert oriented cranial nerves II through XII intact normal strength sensation reflexes Test Results: [] Emergency Department Course and Treatment: [] EKG shows sinus rhythm at a rate of 79. No acute ischemic findings. Lab work chest x-ray obtained. Patient already received aspirin by EMS. Given sublingual nitroglycerin and Lasix IV. Patient's blood pressure came down after sublingual nitro. She has chest pain that resolved. She urinated frequently after the Lasix. Troponin was negative. Chest x-ray shows nothing acute. I discussed admission with the patient. Due to her risk factors and age and never having a stress test I feel she should be admitted for that. She is declining this and refusing this. She would like to go home. She is pain-free. She understands the risk of doing so. She will follow-up with her doctor. She will return if she worsens. Treatment Plan: [] Disposition: [] Impression: [] Chest pain Chronic hypertension This note was generated with [employer] dictation software. It may contain incorrect words, spelling, and punctuation that were not noted in review of the chart prior to signing ED Disposition - Plan for ED Patient: Referrals: Trudy Ordaz MD [Primary Care Provider] -
--- NOTE | 2018-08-15 03:16 | ED.RN ---
Multiple nurses tried for IV access, 6 attempts, no success. X-rays and then more attempts per pt request. aware.
[2018-08-15] MEDS: Furosemide 40 MG/4 ML Vial IV (04:18)
[2018-08-15] MEDS: Ondansetron 4 MG/2 ML Vial IV (04:18)
--- NOTE | 2018-08-15 04:36 | ED.RN ---
Called lab to have them draw pt. Spoke with rishabh.
[2018-08-15 04:53] LABS: BUN 21 mg/dL (7-18); Creatinine, Serum 0.92 mg/dL (0.55-1.02); Glucose 259 mg/dL (74-106)
[2018-08-15 04:54] LABS: Anion Gap 9 (5-15); BUN/Creat Ratio 22.9 RATIO (10-20); Calcium,Total 8.7 mg/dL (8.5-10.1); Chloride 106 mmol/L (98-107); EST Glomerular Filtration Rate 68 mL/min (>60); Est Glom Filt Rate - Afr Amer 82 mL/min (>60); Estimated Creatinine Clearance 60.36 ml/min; Sodium Level 138 mmol/L (136-145)
[2018-08-15 06:08] LABS: Absolute Lymphocyte Count 1.31 X10^3/ul (0.83-4.51); Absolute Neutrophil Count 4.2 X10^3/uL (2.0-7.7); Basophil# 0.01 X10^3/uL; Basophil% 0.2 % (0-1); Eosinophils% 3.3 % (0-5); Hematocrit 30.6 % (37-47); Lymphocyte # 1.31 X10^3/ul (4.0); Lymphocyte % 21.9 % (19-41); Mean Corp Hgb Conc 32.7 g/gl (32-36); Mean Corpuscular Volume 94.7 fL (81-99); Mean Platelet Vol. 10.2 fl (6.2-12.0); Neutrophil # 4.15 X10^3/uL (2.7-7.7); Neutrophil % 69.4 % (47-70); Platelet Count 155 K/mm3 (150-450); RBC Distribution Width CV 12.3 % (11.6-14.6); RBC Distribution Width SD 42.6 fl (35.1-43.9); Red Blood Count 3.23 M/mm3 (4.2-5.4)
[2018-08-15 06:10] LABS: POSITIVE COUNT NO; POSITIVE DIFFERENTIAL NO; POSITIVE MORPHOLOGY NO
--- NOTE | 2018-08-15 06:35 | ED.DEP ---
ED Disposition - Plan for ED Patient: Disposition: Home or Assisted Living Instructions: ED Chest Pain Atypical Unkn Cause Referrals: Trudy Ordaz MD [Primary Care Provider] -
[2018-08-15 06:37] LABS: BNP,B-Type NATRIURETIC PEPTIDE 165.7 pg/mL (0-100)
== END 2018-08-15 06:44 | disposition home or self-care (01) ==
PROVIDERS: Emergency Provider Emergency Medicine; Family Provider Internal Medicine; PCP Internal Medicine
DX: R07.9 Chest pain, unspecified (principal); I10 Essential (primary) hypertension; Z91.14 Patient's other noncompliance with medication regimen; E11.9 Type 2 diabetes mellitus without complications; E78.00 Pure hypercholesterolemia, unspecified; Z79.4 Long term (current) use of insulin; Z79.82 Long term (current) use of aspirin; Z79.899 Other long term (current) drug therapy
CPT/HCPCS: 71046; 80048; 83880; 84484; 85025; 93005; 96374; 96375; 99285; A4216; J1940; J2405

== ENCOUNTER → 2018-09-01 10:49 | Outpatient (CLI) | payer MEDICAID, SELFPAY ==
[2018-08-19 14:22] VITALS: BMI 37.5
[2018-08-23 14:15] VITALS: BMI 37.5
--- NOTE | 2018-09-01 10:51 | ECHOD_ITS ---
Reason For Study: Dyspnea/SOB Procedure This was a 2D Doppler, Color Flow transthoracic echocardiogram. Exam performed in department. Left Ventricle Normal size and thickness. The estimated ejection fraction is 55 %. Stage 1 diastolic dysfunction. No regional wall motion abnormalities noted. Right Ventricle Normal size and thickness. Normal systolic function. Atria Normal left atrium. Normal right atrium. Normal atrial septum. Mitral Valve The mitral valve is structurally normal. No prolapse or stenosis seen. Trivial mitral valve insufficiency. Tricuspid Valve Normal tricuspid valve. Mild (1+) tricuspid valve insufficiency. Right ventricular systolic pressure estimated to be 45 mmHg. Mild pulmonary hypertension. Aortic Valve Trisinus/trileaflet aortic valve. Mild focal aortic valve thickening. There is no aortic stenosis. Pulmonic Valve Normal pulmonic valve. Great Vessels Normal aortic root. Normal arch. Normal inferior vena cava. Inferior vena cava collapse with sniff. Pericardium/Pleural No pericardial effusion. MMode/2D Measurements & Calculations LVIDd: 4.6 cm IVSd: 1.1 cm Ao root diam: 3.0 cm LVIDs: 2.9 cm LVPWd: 1.0 cm LA dimension: 3.6 cm RVDd: 4.0 cm FS: 37.3 % LAV(MOD-sp4): 58.1 ml LA A4 area: 20.6 cm2 RA A4 area: 18.9 cm2 Time Measurements MV dec time: 0.15 sec Doppler Measurements & Calculations MV E max omid: 101.6 cm/sec Lat Peak E' Omid: 6.1 cm/sec Med Peak E' Omid: 5.4 cm/sec MV A max omid: 86.6 cm/sec E/E' lat: 16.8 E/E' med: 19.0 MV E/A: 1.2 MV V2 max: 109.8 cm/sec MV P1/2t max omid: 110.7 cm/sec Ao V2 max: 117.0 cm/sec MV max P.8 mmHg MV P1/2t: 55.9 msec Ao max P.5 mmHg MV V2 mean: 61.0 cm/sec MV dec slope: 579.9 cm/sec2 Ao V2 mean: 75.8 cm/sec MV mean P.8 mmHg MVA(P1/2t): 3.9 cm2 Ao mean P.7 mmHg MV V2 VTI: 27.1 cm Ao V2 VTI: 23.4 cm LV V1 max: 87.3 cm/sec PA V2 max: 76.1 cm/sec TR max omid: 314.3 cm/sec LV V1 max P.1 mmHg TR max P.5 mmHg LV V1 mean P.7 mmHg LV V1 mean: 60.0 cm/sec LV V1 VTI: 20.4 cm Interpretation Summary The estimated ejection fraction is 55 %. Stage 1 diastolic dysfunction. Trivial mitral valve insufficiency. Mild (1+) tricuspid valve insufficiency. Right ventricular systolic pressure estimated to be 45 mmHg. Mild pulmonary hypertension. There is no comparison study available. Ordering Physician: Francis Thomason Referring Physician: Francis Thomason Performed By: Brodwolf, Manjeet, RCS
[2018-09-01 12:45] LABS: Absolute Lymphocyte Count 1.55 X10^3/ul (0.83-4.51); Absolute Neutrophil Count 6.4 X10^3/uL (2.0-7.7); Basophil# 0.01 X10^3/uL; Basophil% 0.1 % (0-1); Eosinophil# 0.31 X10^3/uL; Eosinophils% 3.5 % (0-5); Hematocrit 35.9 % (37-47); Hemoglobin 11.6 g/dl (12.0-15.0); Lymphocyte # 1.55 X10^3/ul (4.0); Lymphocyte % 17.3 % (19-41); Mean Corp Hgb Conc 32.3 g/gl (32-36); Mean Corpuscular Hgb 30.4 pg (27.0-32.0); Mean Platelet Vol. 9.9 fl (6.2-12.0); Monocyte# 0.66 X10^3/uL; Monocyte% 7.3 % (0-10); Neutrophil # 6.43 X10^3/uL (2.7-7.7); Neutrophil % 71.6 % (47-70); POSITIVE COUNT NO; POSITIVE DIFFERENTIAL NO; POSITIVE MORPHOLOGY NO; Platelet Count 265 K/mm3 (150-450); RBC Distribution Width CV 12.4 % (11.6-14.6); RBC Distribution Width SD 42.1 fl (35.1-43.9); Red Blood Count 3.82 M/mm3 (4.2-5.4)
[2018-09-01 13:22] LABS: Vitamin D,25 Hydroxy 19.8 ng/mL (29.95-100.01)
[2018-09-01 13:23] LABS: BNP,B-Type NATRIURETIC PEPTIDE 57.8 pg/mL (0-100)
[2018-09-01 13:32] LABS: ALB/GLOB Ratio 0.7 RATIO (0.9-2.4); AST(SGOT) 23 U/L (15-37); Alanine Aminotransfer ALT/SGPT 26 U/L (13-56); Albumin, Serum 2.7 g/dL (3.2-5.0); Alkaline Phosphatase 276 U/L (45-117); Anion Gap 7 (5-15); BUN 24 mg/dL (7-18); BUN/Creat Ratio 16.4 RATIO (10-20); Chloride 93 mmol/L (98-107); Cholesterol 117 mg/dL (200); Creatinine, Serum 1.46 mg/dL (0.55-1.02); EST Glomerular Filtration Rate 40 mL/min (>60); Est Glom Filt Rate - Afr Amer 48 mL/min (>60); Globulin 3.8 g/dL (2.2-4.2); Glucose 149 mg/dL (74-106); High Density Lipoprotein 42 mg/dL; Potassium 2.5 mmol/L (3.5-5.1); Protein, Total 6.5 g/dL (6.4-8.2); Sodium Level 139 mmol/L (136-145); Triglycerides 154 mg/dL; Very Low Density Lipoprotein 31 mg/dL (5-40)
[2018-09-01 13:41] LABS: Microalbumin:Creatinine Ratio 2682.5 mg/g CRE (<30 mg/g CRE)
[2018-09-02 09:57] LABS: Thyroid Stim Hormone (TSH) 4.37 uIU/mL (0.358-3.74)
== END ==
PROVIDERS: Family Provider Internal Medicine; PCP Internal Medicine; Referring Provider Nurse Practitioner Family; Visit Provider Nurse Practitioner Family
DX: R06.00 Dyspnea, unspecified (principal); R06.01 Orthopnea; R60.0 Localized edema; R63.5 Abnormal weight gain; R07.9 Chest pain, unspecified; Z79.899 Other long term (current) drug therapy
CPT/HCPCS: 36415; 80053; 80061; 80178; 82043; 82306; 82570; 83880; 84443; 85025; 93306

== ENCOUNTER → 2018-10-21 | Outpatient (CLI) | payer MEDICAID, SELFPAY ==
[2018-10-11 13:47] VITALS: BMI 37.5
== END | disposition home or self-care (01) ==
LOC: LAB 14:52
PROVIDERS: Family Provider Internal Medicine; PCP Internal Medicine; Referring Provider Internal Medicine; Visit Provider Internal Medicine
DX: J02.9 Acute pharyngitis, unspecified (principal)
CPT/HCPCS: 87081

== ENCOUNTER → 2018-10-27 | Outpatient (CLI) | payer MEDICAID, SELFPAY ==
[2018-10-21 16:05] VITALS: BMI 37.5
[2018-10-27 12:38] LABS: Anion Gap 5 (5-15); BUN 30 mg/dL (7-18); BUN/Creat Ratio 26.5 RATIO (10-20); Calcium,Total 8.9 mg/dL (8.5-10.1); Chloride 108 mmol/L (98-107); Creatinine, Serum 1.13 mg/dL (0.55-1.02); EST Glomerular Filtration Rate 53 mL/min (>60); Est Glom Filt Rate - Afr Amer 64 mL/min (>60); Glucose 139 mg/dL (74-106); Potassium 4.7 mmol/L (3.5-5.1); Sodium Level 142 mmol/L (136-145); T4 Free Direct 0.97 ng/dL (0.76-1.46)
== END | disposition home or self-care (01) ==
LOC: BIMLAB 08:55
PROVIDERS: Family Provider Internal Medicine; PCP Internal Medicine; Visit Provider Internal Medicine
DX: E87.6 Hypokalemia (principal); R94.6 Abnormal results of thyroid function studies
CPT/HCPCS: 36415; 80048; 84439; 84443

== ENCOUNTER → 2018-11-25 | Outpatient (CLI) | payer MEDICAID, SELFPAY ==
[2018-11-02 14:41] VITALS: BMI 37.5
[2018-11-25 12:52] LABS: Anion Gap 5 (5-15); BUN 34 mg/dL (7-18); BUN/Creat Ratio 30.6 RATIO (10-20); Calcium,Total 8.6 mg/dL (8.5-10.1); Chloride 106 mmol/L (98-107); Creatinine, Serum 1.11 mg/dL (0.55-1.02); EST Glomerular Filtration Rate 54 mL/min (>60); Est Glom Filt Rate - Afr Amer 66 mL/min (>60); Glucose 130 mg/dL (74-106); Potassium 5.1 mmol/L (3.5-5.1); Sodium Level 143 mmol/L (136-145)
[2018-11-25 13:36] LABS: Microalbumin:Creatinine Ratio 2052.4 mg/g CRE (<30 mg/g CRE)
== END | disposition home or self-care (01) ==
LOC: BIMLAB 10:03
PROVIDERS: Family Provider Internal Medicine; PCP Internal Medicine; Visit Provider Internal Medicine
DX: N17.9 Acute kidney failure, unspecified (principal); E11.9 Type 2 diabetes mellitus without complications
CPT/HCPCS: 36415; 80048; 82043; 82570

== ENCOUNTER → 2018-12-14 | Outpatient (CLI) | payer MEDICAID, SELFPAY ==
[2018-09-12 13:53] VITALS: BMI 37.5
[2018-12-14] MEDS: Zolpidem Tartrate 5 MG Tablet PO (21:00)
== END | disposition home or self-care (01) ==
LOC: SL 20:23
PROVIDERS: Family Provider Internal Medicine; PCP Internal Medicine; Referring Provider Internal Medicine; Visit Provider Internal Medicine
DX: G47.10 Hypersomnia, unspecified (principal)
CPT/HCPCS: 95810

== ENCOUNTER → 2018-12-28 | Outpatient (CLI) | payer MEDICAID, SELFPAY ==
[2018-11-02 14:41] VITALS: BMI 37.5
[2018-12-28 13:10] LABS: Anion Gap 7 (5-15); BUN 31 mg/dL (7-18); Calcium,Total 8.6 mg/dL (8.5-10.1); Chloride 104 mmol/L (98-107); Creatinine, Serum 1.24 mg/dL (0.55-1.02); EST Glomerular Filtration Rate 48 mL/min (>60); Est Glom Filt Rate - Afr Amer 58 mL/min (>60); Glucose 266 mg/dL (74-106); Potassium 4.5 mmol/L (3.5-5.1); Sodium Level 140 mmol/L (136-145)
== END | disposition home or self-care (01) ==
LOC: BIMLAB 11:02
PROVIDERS: Family Provider Internal Medicine; PCP Internal Medicine; Visit Provider Internal Medicine
DX: R80.9 Proteinuria, unspecified (principal)
CPT/HCPCS: 36415; 80048

== ENCOUNTER → 2019-03-07 10:59 | Outpatient (CLI) | payer MEDICAID, SELFPAY ==
[2019-02-01 13:01] VITALS: BMI 36.3
[2019-03-07 12:22] LABS: Absolute Neutrophil Count 3.8 X10^3/uL (2.0-7.7); Basophil# 0.02 X10^3/uL; Basophil% 0.3 % (0-1); Eosinophil# 0.25 X10^3/uL; Eosinophils% 4.2 % (0-5); Hematocrit 31.5 % (37-47); Hemoglobin 10.5 g/dL (12.0-15.0); Lymphocyte % 25.1 % (19-41); Mean Corp Hgb Conc 33.3 g/dL (32-36); Mean Corpuscular Volume 92.9 fL (81-99); Mean Platelet Vol. 9.5 fl (6.2-12.0); Monocyte# 0.32 X10^3/uL; Monocyte% 5.4 % (0-10); NRBC Flagged by Analyzer 0 % (0-5); Neutrophil # 3.84 X10^3/uL (2.7-7.7); Neutrophil % 64.3 % (47-70); Platelet Count 183 K/mm3 (150-450); RBC Distribution Width CV 12.5 % (11.6-14.6); RBC Distribution Width SD 42.1 fl (35.1-43.9); Red Blood Count 3.39 M/mm3 (4.2-5.4)
[2019-03-07 12:37] LABS: ALB/GLOB Ratio 0.7 RATIO (0.9-2.4); AST(SGOT) 37 U/L (15-37); Alanine Aminotransfer ALT/SGPT 72 U/L (13-56); Albumin, Serum 3.1 g/dL (3.2-5.0); Alkaline Phosphatase 335 U/L (45-117); Anion Gap 6 (5-15); BUN 31 mg/dL (7-18); BUN/Creat Ratio 30.7 RATIO (10-20); Calcium,Total 8.7 mg/dL (8.5-10.1); Chloride 104 mmol/L (98-107); Creatinine, Serum 1.01 mg/dL (0.55-1.02); EST Glomerular Filtration Rate 60 mL/min (>60); Est Glom Filt Rate - Afr Amer 73 mL/min (>60); Globulin 4.2 g/dL (2.2-4.2); Glucose 281 mg/dL (74-106); Potassium 4.7 mmol/L (3.5-5.1); Protein, Total 7.3 g/dL (6.4-8.2); Sodium Level 141 mmol/L (136-145)
== END ==
PROVIDERS: Family Provider Internal Medicine; PCP Internal Medicine; Visit Provider Internal Medicine
DX: R40.0 Somnolence (principal)
CPT/HCPCS: 36415; 80053; 85025

== ENCOUNTER → 2019-03-20 10:21 | Outpatient (CLI) | payer MEDICAID, SELFPAY ==
[2019-03-07 11:18] VITALS: BMI 36.3
--- NOTE | 2019-03-20 10:52 | RAD_ITS ---
STUDY: X-RAY - LUMBAR SPINE REASON FOR EXAM: Female, 53 years old. Low back pain TECHNIQUE: 5 view(s) of the lumbar spine were obtained. COMPARISON: None FINDINGS: Normal lumbar lordosis. There is no substantial scoliosis. Grade 1 spondylolisthesis at L4-5. No evidence for acute fracture or subluxation. Narrowed disc space with vacuum disc degeneration at L4-5. The soft tissue structures are unremarkable. RAD/L/S Spine Min 4 Views IMPRESSION: No evidence for acute fracture or subluxation. Mild spondylosis centered at L4-5 Electronically Signed: Trey Solares MD at 21:04 EDT , Service support ,
[2019-03-20 12:56] LABS: Magnesium 1.6 mg/dL (1.6-2.6)
[2019-03-20 13:03] LABS: Vitamin D,25 Hydroxy 29.7 ng/mL (29.95-100.01)
== END ==
LOC: BIMLAB 10:46 → RAD 10:51
PROVIDERS: Family Provider Internal Medicine; PCP Internal Medicine; Referring Provider Nurse Practitioner Family; Visit Provider Nurse Practitioner Family
DX: M46.96 Unspecified inflammatory spondylopathy, lumbar region (principal); M54.9 Dorsalgia, unspecified; M54.17 Radiculopathy, lumbosacral region; E55.9 Vitamin D deficiency, unspecified; E83.42 Hypomagnesemia
CPT/HCPCS: 36415; 72110; 82306; 83735

== ENCOUNTER → 2019-03-24 08:55 | Outpatient (CLI) | payer MEDICAID, SELFPAY ==
[2019-03-24 08:24] VITALS: BMI 36.3
[2019-03-27 14:07] LABS: PROEL- A/G Ratio 0.8 (0.7-1.7); PROEL- Albumin 3.1 g/dL (2.9-4.4); PROEL- Alpha-1 Globulin 0.3 g/dL (0.0-0.4); PROEL- Alpha-2 Globulin 0.9 g/dL (0.4-1.0); PROEL- Beta Globulin 1.3 g/dL (0.7-1.3); PROEL- Gamma Globulin 1.2 g/dL (0.4-1.8); PROEL- Globulin, Total 3.7 g/dL (2.2-3.9); PROEL- TOTAL PROTEIN 6.8 g/dL (6.0-8.5)
== END ==
PROVIDERS: Family Provider Internal Medicine; PCP Internal Medicine; Visit Provider Internal Medicine
DX: R74.8 Abnormal levels of other serum enzymes (principal)
CPT/HCPCS: 36415; 84165

== ENCOUNTER → 2019-04-24 08:16 | Outpatient (CLI) | payer MEDICAID, SELFPAY ==
[2018-12-29 09:13] VITALS: BMI 36.3
[2019-03-24 09:11] VITALS: BMI 36.3
--- NOTE | 2019-04-25 07:13 | PFT ---
INTRODUCTION: The patient is a 53-year-old female that presents for pulmonary function studies secondary to a diagnosis of dyspnea. Respiratory therapy reports good patient effort. Bronchodilators were used during testing. INTERPRETATION: Forced expiration spirometry demonstrates no evidence of a large airways obstructive ventilatory defect. There was no significant response to aerosolized bronchodilators. Spirograms are of good quality and plateau normally. Body plethysmography was performed and reveals lung volumes to be within normal limits. Diffusing capacity by single breath CO is reduced at 57% of predicted. IMPRESSION: Isolated reduction in diffusing capacity, which could be related to an underlying pulmonary vascular disorder such as pulmonary hypertension.
== END ==
PROVIDERS: Family Provider Internal Medicine; PCP Internal Medicine; Referring Provider Nurse Practitioner Acute Care; Visit Provider Nurse Practitioner Acute Care
DX: R06.00 Dyspnea, unspecified (principal)
CPT/HCPCS: 94060; 94726; 94729

== ENCOUNTER → 2020-06-26 16:11 | Outpatient (CLI) | payer MEDICAID, SELFPAY ==
[2020-06-26 17:43] LABS: BUN 48 mg/dL (7-18); Creatinine, Serum 2.66 mg/dL (0.55-1.02); EST Glomerular Filtration Rate 20 mL/min (>60); Glucose 370 mg/dL (74-106)
[2020-06-26 17:44] LABS: ALB/GLOB Ratio 0.8 RATIO (0.9-2.4); AST(SGOT) 15 U/L (15-37); Alanine Aminotransfer ALT/SGPT 22 U/L (13-56); Albumin, Serum 3.3 g/dL (3.2-5.0); Alkaline Phosphatase 252 U/L (45-117); Anion Gap 9 (5-15); Calcium,Total 8.3 mg/dL (8.5-10.1); Chloride 100 mmol/L (98-107); Cholesterol 174 mg/dL (200); Est Glom Filt Rate - Afr Amer 24 mL/min (>60); Globulin 4.4 g/dL (2.2-4.2); High Density Lipoprotein 29 mg/dL; Protein, Total 7.7 g/dL (6.4-8.2); Sodium Level 134 mmol/L (136-145); Triglycerides 380 mg/dL; Very Low Density Lipoprotein 76 mg/dL (5-40)
[2020-06-26 17:49] LABS: Thyroid Stim Hormone (TSH) 0.57 uIU/mL (0.358-3.74)
[2020-07-02 16:16] LABS: KEPPRA (LEVETIRACETAM) 90.1 ug/mL (10.0-40.0)
== END ==
PROVIDERS: PCP Internal Medicine; Referring Provider Nurse Practitioner Family; Visit Provider Nurse Practitioner Family
DX: E11.9 Type 2 diabetes mellitus without complications (principal); R55 Syncope and collapse
CPT/HCPCS: 36415; 80053; 80061; 80177; 84443

== ENCOUNTER 2020-06-27 17:34 | Inpatient (IN) | payer MEDICAID, SELFPAY ==
[2020-06-27] VITALS (8 sets, daily range): BP systolic 89–144; BP diastolic 54–79; PULSE 90–111; RESP 16–18; TEMP 36.4–37; O2SAT 97–100; BMI 34.7; BMI 35.6; BMI 35.7
--- NOTE | 2020-06-27 17:41 | EKG12_ITS ---
Test Reason : Blood Pressure : / mmHG Vent. Rate : 099 BPM Atrial Rate : 099 BPM P-R Int : 180 ms QRS Dur : 074 ms QT Int : 358 ms P-R-T Axes : 046 000 062 degrees QTc Int : 459 ms Normal sinus rhythm Cannot rule out Anterior infarct , age undetermined Abnormal ECG Confirmed by JAYSON TELLEZ, SADE ([id number]), manager editorial DIDIER TRIPLETT ([id number]) on 07/01/2020 9:51:14 AM Referred By: GARLAND Confirmed By:SADE YTLER MD
--- NOTE | 2020-06-27 17:43 | ED.VIS.GEN ---
History of Present Illness Chief Complaint: Abn Labs Informant: Patient Onset: Days Context: Gradual Onset Timing: Intermittent Current Severity: Moderate Maximum Severity: Moderate Narrative: Patient is a 54-year-old female with medical history significant for poorly controlled diabetes, hypertension, hyperlipidemia who presents to the emergency department abnormal labs. Patient does have a seizure history. She is intermittently compliant with her medications. She went to see her primary care yesterday because she has had a few bouts of syncope. She states that she has not prodromal prior and will just pass out. She states she had labs done which showed elevated kidney function. She has no history of dialysis. She denies fevers or chills. She denies any chest pain, orthopnea. Prior similar symptoms: No Recent Illness/Hospitalization: No Past Medical History - Allergies and Home Meds Allergies/Adverse Reactions: Allergies metformin Allergy (Severe, Verified 06/27/20 17:37) Nausea aspartame Allergy (Verified 06/27/20 17:37) Swelling latex Allergy (Verified 06/27/20 17:37) Unknown Penicillins Allergy (Verified 06/27/20 17:37) Laryngospasms Primary Care Physician: Trudy Ordaz MD [Primary Care Provider] - Prior records reviewed: Yes Past Medical History: - - Diabetes, hypertension, hyperlipidemia, chronic kidney disease Surgical History: - Smoking Status: Never smoker - Family History Maternal Family History: Family History (Last Reviewed 06/16/19 @ 13:31 by Justine Swan) Unknown Patient was adopted Family History: Reports: Unknown Paternal Family History: Family History (Last Reviewed 06/16/19 @ 13:31 by Justine Swan) Unknown Patient was adopted Family History: Reports: Unknown Offspring Family History: Family History (Last Reviewed 06/16/19 @ 13:31 by Justine Swan) Unknown Patient was adopted Family History: Reports: - - Daughter of drug overdose Review of Systems General: Denies: Chills, Fever, Sweats Eyes: Denies: Visual changes - bilaterally, Diplopia ENT: Denies: Rhinorrhea, Sore throat Cardiovascular: Denies: Chest pain, Palpitations Respiratory: Denies: Dyspnea, Cough, Dyspnea on exertion Gastrointestinal: Reports: Nausea. Denies: Abdominal pain, Vomiting, Diarrhea, Melena, Hematochezia Genitourinary: Denies: Dysuria, Hematuria, Frequency Musculoskeletal: Denies: Back pain, Extremity Pain Skin: Denies: Rash, Wounds Neurological: Denies: Headache, Weakness, Numbness Physical Exam Vital Signs/Narrative: Vital Signs Temp Pulse Resp BP Pulse Ox 06/27/20 17:35 97.6 F L 109 H 18 120/70 100 Inital Vital Signs reviewed: Yes General: Well nourished, Well developed, No Acute Distress Head: Normocephalic, Atraumatic Eyes: Perrl, EOMI ENT: Moist mucous membranes, No rhinorrhea Neck: Supple, Nontender Cardiovascular: Regular rate, Regular rhythm, No murmurs Respiratory: No distress, CTA bilaterally, Chest nontender Abdomen: Soft, Nontender, Nondistended, Normal bowel sounds Back: Nontender, Normal Inspection Extremities: Nontender, No edema Skin: Normal color, No rash Neurological: Alert, Oriented x3, Cranial nerves II-XII grossly intact, Normal Strength, Normal Sensation Psychological: Normal affect, Normal Mood Diagnostic/Tx/Re-eval Abnormal Lab Results 06/27/20 06/27/20 17:55 17:55 WBC 6.4 RBC 3.23 L Hgb 10.0 L Hct 30.1 L MCV 93.2 MCH 31.0 MCHC 33.2 RDW Std Deviation 39.3 RDW Coeff of Emery 11.7 Plt Count 221 MPV 9.4 Immature Gran % (Auto) 0.600 Neut % (Auto) 66.2 Lymph % (Auto) 26.0 [place] % (Auto) 3.7 Eos % (Auto) 3.0 Baso % (Auto) 0.5 Absolute Neuts (auto) 4.3 Absolute Lymphs (auto) 1.67 Nucleated RBC % 0 Sodium 134 L Potassium 4.0 Chloride 102 Carbon Dioxide 26.0 Anion Gap 6 BUN 44 H Creatinine 2.51 H Estim Creat Clear Calc 21.61 Est GFR (MDRD) Af Amer 25 L Est GFR (MDRD) Non-Af 21 L BUN/Creatinine Ratio 17.5 Glucose 426 H Calcium 8.3 L Total Bilirubin 0.30 AST 17 ALT 25 Alkaline Phosphatase 280 H Total Protein 7.6 Albumin 3.3 Globulin 4.3 H Albumin/Globulin Ratio 0.8 L - Rhythm Strip Rhythm Strip: Sinus Rhythm Rate: 80 Ectopy: None - EKG Initial EKG Interpretation: Sinus Rhythm, No Acute Injury Pattern Prior: Unchanged - Medical Decision Making Patient presents with syncope and outpatient labs which demonstrated acute kidney injury. EKG was obtained on patient arrival. Was sinus rhythm with first-degree block. There is no acute ischemia. Patient had positive orthostatic vitals. She was very dizzy when she stood quickly. She was given fluids. Screening labs do demonstrate evidence of acute kidney injury with a creatinine of 2.5. She is also hyperglycemic, but has no anion gap. I do feel that the bulk of her kidney injury is likely prerenal given her poorly controlled diabetes. However, with her syncope I do feel that she would benefit from admission for IV hydration and monitoring of her electrolytes. The patient was discussed with the hospitalist. Impression 1. Syncope 2. Acute kidney injury ED Disposition - Plan for ED Patient: Referrals: Trudy Ordaz MD [Primary Care Provider] -
[2020-06-27] MEDS: 0.9% Normal Saline 1,000 ML 1000 ML IV (17:57)
[2020-06-27 18:10] LABS: Absolute Lymphocyte Count 1.67 X10^3/uL (0.83-4.51); Absolute Neutrophil Count 4.3 X10^3/uL (2.0-7.7); Basophil# 0.03 X10^3/uL; Basophil% 0.5 % (0-1); Eosinophil# 0.19 X10^3/uL; Hematocrit 30.1 % (37-47); Lymphocyte # 1.67 X10^3/ul (4.0); Mean Corp Hgb Conc 33.2 g/dL (32-36); Mean Corpuscular Volume 93.2 fL (81-99); Mean Platelet Vol. 9.4 fl (6.2-12.0); Monocyte# 0.24 X10^3/uL; Monocyte% 3.7 % (0-10); NRBC Flagged by Analyzer 0 % (0-5); Neutrophil # 4.25 X10^3/uL (2.7-7.7); Neutrophil % 66.2 % (47-70); Platelet Count 221 K/mm3 (150-450); RBC Distribution Width CV 11.7 % (11.6-14.6); RBC Distribution Width SD 39.3 fl (35.1-43.9); Red Blood Count 3.23 M/mm3 (4.2-5.4); White Blood Count 6.4 K/mm3 (4.4-11.0)
--- NOTE | 2020-06-27 18:10 | RAD_ITS ---
STUDY: X-RAY CHEST REASON FOR EXAM: Female, 54 years old. SENT IN FOR ABNORMAL KIDNEY LABS. TECHNIQUE: AP portable COMPARISON: 08/15/2018. FINDINGS: The lungs are clear and expanded. There is no demonstrated pleural abnormality. Heart is enlarged. Normal mediastinum and rianna. Normal visualized pulmonary arteries. Normal visualized aortic arch and descending thoracic aorta. Normal visualized thoracic spine. Normal visualized ribs, clavicles, and shoulders. There is no demonstrated abnormality of the visualized soft tissue structures of the upper abdomen. RAD/Chest 1 View (Portable) IMPRESSION: Cardiomegaly. No acute cardiopulmonary pathology. Electronically Signed: Trey Solares MD at 18:41 EST , Service support ,
[2020-06-27 18:39] LABS: ALB/GLOB Ratio 0.8 RATIO (0.9-2.4); AST(SGOT) 17 U/L (15-37); Alanine Aminotransfer ALT/SGPT 25 U/L (13-56); Albumin, Serum 3.3 g/dL (3.2-5.0); Alkaline Phosphatase 280 U/L (45-117); Anion Gap 6 (5-15); BUN 44 mg/dL (7-18); BUN/Creat Ratio 17.5 RATIO (10-20); Calcium,Total 8.3 mg/dL (8.5-10.1); Chloride 102 mmol/L (98-107); Creatinine, Serum 2.51 mg/dL (0.55-1.02); EST Glomerular Filtration Rate 21 mL/min (>60); Est Glom Filt Rate - Afr Amer 25 mL/min (>60); Estimated Creatinine Clearance 21.61 ml/min; Globulin 4.3 g/dL (2.2-4.2); Glucose 426 mg/dL (74-106); Protein, Total 7.6 g/dL (6.4-8.2); Sodium Level 134 mmol/L (136-145)
[2020-06-27 18:46] LABS: Lactic Acid 2.7 mmol/L (0.4-1.9)
[2020-06-27 19:09] LABS: Mucous, Urine 0 SEEN /hpf (<or=2+)
--- NOTE | 2020-06-27 19:39 | PCM.HP.STD ---
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 (2) ZOEY (acute kidney injury) Status: Acute (3) Depression with anxiety Status: Chronic (4) Type 2 diabetes mellitus Status: Chronic Qualifiers: Diabetes mellitus half-way insulin use: with half-way use Diabetes mellitus complication status: with hyperglycemia Qualified Code(s): E11.65 - Type 2 diabetes mellitus with hyperglycemia; Z79.4 - 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 of insulin (5) HTN (hypertension) Status: Chronic Qualifiers: Hypertension type: essential hypertension Qualified Code(s): I10 - Essential (primary) hypertension (6) CKD (chronic kidney disease) Status: Chronic Qualifiers: Chronic kidney disease stage: unspecified stage Qualified Code(s): N18.9 - Chronic kidney disease, unspecified (7) Seizures Status: Chronic (8) Obesity (BMI 30-39.9) Status: Chronic History of Present Illness Date of Admission: 06/27/20 Chief Complaint: Syncope -ongoing for 6 months The patient is a 54 year old F with a recent diagnosis of seizure disorder who comes in with passing out 3-4 times daily for the past 6 months. Patient last saw a neurologist in [place], Dr. Elba Askew and was maintained on Keppra started by her primary care doctor. She continues to have seizures. Her states that she has jerking movements of her extremities, this lasts for about 3 minutes,. She has associated incontinence of urine. She has been on her Keppra daily. No new medications. She also complains of chronic diarrhea that has been present for her whole life. She has 2-3 loose bowel movements a day. She followed up with her primary care doctor yesterday and had repeat Keppra testing; results are pending. She was called to come to the emergency department by the primary care doctor. Her kidney function was abnormal. In the ED, patient's temperature was 97.6F, heart rate 109, blood pressure 120/70, respiratory rate 18, SPO2 100% on room air. Her WBC count was 6.4, hemoglobin 10.0, platelet count 221, sodium 134, potassium 4.2, chloride 102, bicarbonate 26, BUN 44, creatinine 2.51, glucose 426, lactic acid 2.7, LFTs unremarkable except for alkaline phosphatase of 280. Her admitting chest x-ray shows cardiomegaly, no acute cardiopulmonary pathology. Past Medical History Past Medical History (Chronic Problems): Chronic Problems (Last Reviewed 06/16/19 @ 13:31 by Justine Swan) Abdominal pain (Chronic) Hypokalemia (Chronic) Hypomagnesemia (Chronic) Diabetes (Chronic) Anxiety (Chronic) Depression with anxiety (Chronic) Type 2 diabetes mellitus (Chronic) Hyperlipidemia (Chronic) HTN (hypertension) (Chronic) CKD (chronic kidney disease) (Chronic) Chronic ulcer of left foot with fat layer exposed (Chronic) Seizures (Chronic) Obesity (BMI 30-39.9) (Chronic) Sleep concern (Chronic) Dyspnea (Chronic) Abnormal thyroid function test (Chronic) Hypersomnolence (Chronic) Pulmonary hypertension (Chronic) Diabetic foot ulcer (Chronic) Medical History: Medical History (Last Reviewed 06/16/19 @ 13:31 by Justine Swan) Back problem M53.9 Bladder/UTI Breast lump N63.0 Eczema L30.9 Frequent headaches R51 GERD (gastroesophageal reflux disease) K21.9 H/O emotional problems F48.9 Hives L50.9 Kidney stones N20.0 Pnuemonia Polycystic ovaries E28.2 Seasonal allergies J30.2 Vision problems H54.7 Vitamin defciency HTN (hypertension) I10 Allergies metformin Allergy (Severe, Verified 06/27/20 17:37) Nausea aspartame Allergy (Verified 06/27/20 17:37) Swelling latex Allergy (Verified 06/27/20 17:37) Unknown Penicillins Allergy (Verified 06/27/20 17:37) Laryngospasms Home Medications: Ambulatory Orders Medication Instructions Recorded albuterol sulfate 90 mcg/actuation 1 - 2 puff INHALATION Q6H PRN #8.5 03/01/19 aerosol inhaler g albuterol sulfate 2.5 mg INHALATION Q4H PRN #180 ml 05/03/19 clonazepam 0.5 mg tablet 0.5 mg PO TID 30 Days #90 tab 05/09/19 valacyclovir 500 mg tablet 500 mg PO Q12H PRN #20 tab 09/19/19 Aripiprazole 5 mg PO DAILY 06/27/20 Aspirin 81 mg PO DAILY@0800 06/27/20 Atorvastatin Calcium [Lipitor] 40 mg PO QHS 06/27/20 Cholecalciferol (Vitamin D3) See Rx Instructions .ROUTE .COMPLEX 06/27/20 [Vitamin D3] Exenatide Microspheres [Bydureon 2 mg SC WE 06/27/20 BCise] Fluticasone Propionate 2 spray INTRANASAL DAILY 06/27/20 Folic Acid 1 mg PO DAILY@0800 06/27/20 Hydrochlorothiazide [Hctz] 25 mg PO DAILY 06/27/20 Insulin Glargine [Lantus SoloStar 28 unit SC QHS 06/27/20 Pen] Levetiracetam 750 mg PO Q12H 06/27/20 Losartan Potassium 100 mg PO DAILY 06/27/20 Oxybutynin Chloride 5 mg PO TID 06/27/20 Pantoprazole Sodium 40 mg PO DAILY 06/27/20 Prazosin HCl 1 mg PO QHS 06/27/20 Prazosin HCl 2 mg PO QHS 06/27/20 Prazosin HCl 5 mg PO QHS 06/27/20 Quetiapine Fumarate [Seroquel] 300 mg PO QHS 06/27/20 Sertraline HCl [Zoloft] 50 mg PO DAILY 06/27/20 Surgical History: Surgical History (Last Reviewed 06/16/19 @ 13:31 by Justine Swan) History of section Z98.891 History of cholecystectomy Z98.890, Z90.49 Surgical History: cholecystectomy, - - s/ 2 C/S Psychiatric History: Bipolar 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 Lives: Spouse/ Significant Other Smoking Status: Never smoker Tobacco Use: Non-smoker Alcohol: None Drugs: None - *Family History Maternal Family History: Family History (Last Reviewed 06/16/19 @ 13:31 by Justine Swan) Unknown Patient was adopted History Items: Unknown - adopted Paternal Family History: Family History (Last Reviewed 06/16/19 @ 13:31 by Justine Swan) Unknown Patient was adopted History Items: Unknown - adopted Offspring Family History: Family History (Last Reviewed 06/16/19 @ 13:31 by Justine Swan) Unknown Patient was adopted History Items: - - Daughter of drug overdose Review of Systems Constitutional: Reports: Weakness, Fatigue. Denies: Anorexia, Chills, Fever, Malaise, Weight Change Eyes: Denies: Blurred vision, Cataracts, Conjunctivae Inflammation, Pain, Vision Change HEENT: Denies: Difficulty Hearing, Difficulty Swallowing, Head Aches, Hearing Changes, Sinus Congestion, Sinus Drainage Cardiovascular: Denies: Chest Pain, Claudication, Orthopnea, Palpitations, Paroxysmal Noc. Dyspnea Respiratory: Denies: Cough, Hemoptysis, Shortness of Breath, Shortness of breath at rest, Shortness of breath upon exertion, Sputum production Gastrointestinal: Reports: Diarrhea. Denies: Abdominal Pain, Constipation, Hematemesis, Hematochezia, Nausea, Vomiting Genitourinary: Denies: Dysuria, Frequency, Incontinence Gynecological: Denies: Breast symptoms, Excessively long or heavy periods Musculoskeletal: Denies: Joint Pain, Joint stiffness, Joint swelling, Joint Tenderness Skin: Reports: - - dystrophic nails on the hands. Denies: Dryness, Jaundice, Pruritis, Rash, Wounds Neurological: Denies: Numbness, Tingling, Focal weakness Psychiatric: Denies: Anxiety, Depression, Homicidal Ideations, Suicidal Ideations Hematologic/ Lymphatic: Denies: Easy Bruising, Easy Bleeding VTE Information - Inpt Only VTE Present on Admission: No VTE Pharm Prophylaxis ordered?: Yes - Physical Exam Vitals/I&O's: Vital Signs Temp Pulse Resp BP Pulse Ox 98.1 F 93 18 112/78 97 06/27/20 18:36 06/27/20 18:36 06/27/20 18:36 06/27/20 18:36 06/27/20 18:36 Oxygen Delivery Method Room Air Weight: 91.7 kg Body Mass Index (BMI) 34.7 Finger Stick Blood Glucose 495 General: Alert, Oriented x3, Cooperative, No apparent distress HEENT: Atraumatic, PERRLA, EOMI, Normocephalic Oral: Moist Mucosa Neck: Supple Lungs: Diminished Cardiovascular: Regular rate, Regular Rhythm, Normal S1, Normal S2, No murmurs Abdomen: Bowel Sounds Present, Soft, Non Tender, Non-Distended, No Hepato-splenomegaly Extremities: No edema Skin: - - fungal infection of gthe nails of the hands, dystrophic Musculoskeletal: No Tenderness to Palpation of Joints or Extremities Lymphatic: No Cervical, Supraclavicular, or Inguinal Adenopathy Neurological: Cranial nerves II-XII grossly intact, Neuro grossly intact Psych/Mental Status: Normal Affect, Appropriate Laboratory Results 06/27/20 17:55: WBC 6.4, RBC 3.23 L, Hgb 10.0 L, Hct 30.1 L, MCV 93.2, MCH 31.0, MCHC 33.2, RDW Std Deviation 39.3, RDW Coeff of Emery 11.7, Plt Count 221, MPV 9.4, Immature Gran % (Auto) 0.600, Neut % (Auto) 66.2, Lymph % (Auto) 26.0, [place] % (Auto) 3.7, Eos % (Auto) 3.0, Baso % (Auto) 0.5, Absolute Neuts (auto) 4.3, Absolute Lymphs (auto) 1.67, Nucleated RBC % 0 06/27/20 17:55: Sodium 134 L, Potassium 4.0, Chloride 102, Carbon Dioxide 26.0, Anion Gap 6, BUN 44 H, Creatinine 2.51 H, Estim Creat Clear Calc 21.61, Est GFR (MDRD) Af Amer 25 L, Est GFR (MDRD) Non-Af 21 L, BUN/Creatinine Ratio 17.5, Glucose 426 H, Calcium 8.3 L, Total Bilirubin 0.30, AST 17, ALT 25, Alkaline Phosphatase 280 H, Total Protein 7.6, Albumin 3.3, Globulin 4.3 H, Albumin/Globulin Ratio 0.8 L 06/27/20 17:55: Lactic Acid 2.7 H* 06/27/20 18:35: Urine Color Pending, Urine Clarity Pending, Urine pH Pending, Ur Specific Carl[place] Pending, Urine Protein Pending, Urine Glucose (UA) Pending, Urine Ketones Pending, Urine Occult Blood Pending, Urine Nitrite Pending, Urine Bilirubin Pending, Urine Urobilinogen Pending, Ur Leukocyte Esterase Pending, Urine RBC Pending, Urine WBC Pending, Ur Squamous Epith Cells Pending, Urine Bacteria Pending, Urine Mucus Pending Assessment/Plan All Active Problems (Last Reviewed 06/16/19 @ 13:31 by Justine Swan) Toxic encephalopathy (Acute) Suicide attempt (Acute) Hyperosmolar non-ketotic state in patient with type 2 diabetes mellitus (Acute) ZOEY (acute kidney injury) (Acute) Aspiration pneumonia (Acute) Bilateral tinnitus (Acute) OAB (overactive bladder) (Acute) Hyperglycemia (Acute) Hyperglycemia due to type 2 diabetes mellitus (Acute) Ulcer of left lower extremity with fat layer exposed (Acute) Venous insufficiency (Acute) Lower extremity edema (Acute) Xerosis cutis (Acute) Type 2 diabetes mellitus without complications (Acute) Weakness (Acute) Postconcussion syndrome (Acute) [place] toxicity (Acute) 1. Acute recurrent seizure disorder in a patient with newly diagnosed seizure disorder Patient is on Keppra but has been having daily seizures about 2-3 times a day This is concerning for possible status epilepticus; patient however denies any seizure-like activities Patient last had a seizure this morning We will continue on Keppra, seizure precautions, SOC consult 2. Recurrent syncope secondary to dehydration from chronic diarrhea and hydrochlorothiazide use Patient orthostatic vitals are positive. We will continue IV fluids, replaced. Repeat orthostatic vitals in a.m. 3. Acute kidney injury, prerenal secondary to dehydration from chronic diarrhea and hydrochlorothiazide use Patient's baseline creatinine is 1.0-1.2. Patient was admitted with creatinine of 2.51 We will hold hydrochlorothiazide and losartan Continue on IV fluids, recheck blood work in a.m. 4. Type II DM, uncontrolled, continue on home Lantus, exenatide as well as insulin sliding scale with blood glucose checks Recheck HbA1c 5. Hypertension/hyperlipidemia, continue on atorvastatin and prazosin Hydrochlorothiazide and losartan on hold on account of ZOEY We will monitor blood pressure with hydralazine as needed 6. Bipolar disorder/unspecified psychiatric disorder Patient is on Seroquel, Zoloft, clonazepam, Abilify Would hold Zoloft, oxybutynin on account of prolonged QTC on EKG 7. DVT prophylaxis with heparin subcu Inpatient E&M: 15341 Init Hosp L3
[2020-06-27 19:54] LABS: Color, Urine Yellow (Yellow); Glucose, Dipstick 1000 mg/dl (Normal); Ketone-Dipstick Negative (Negative); Leukocyte Esterase-Dipstick 500 /ul (Negative); Nitrite-Dipstick Positive (Negative); Occult Blood-Urine 25 /ul (Negative); Protein-Dipstick 30 mg/dl (Negative); Urine Bilirubin Dipstick Negative (Negative); Urine Clarity Cloudy (Clear); Urine Urobilinogen Normal (Normal)
[2020-06-27 20:01] LABS: Bacteria 2+ /hpf (None Seen); Red Blood Cells-Urine 0-5 SEEN /hpf (0-5); Squamous Epithelial Cells - UA 0-5 SEEN /hpf (5-10); White Blood Cells >100 SEEN /hpf (0-5)
[2020-06-27] MEDS: Ceftriaxone 1 GM/50 ML BAG IV (21:22)
[2020-06-27] MEDS: 0.9% Normal Saline 1,000 ML 150 ML IV (21:22)
[2020-06-27 22:06] LABS: Reflex Lactate? Y
[2020-06-27] MEDS: Heparin Injection (Vial) 5,000 UNIT/ML VIAL 5000 UNIT SC (22:06)
--- NOTE | 2020-06-27 22:19 | TELEMED_ITS ---
SOC Telemed has confirmed receipt of a request for visit. This document confirms receipt of the order initiating the consult. To find the results of the consultation, please view the patient's reports for the scanned Telemed Consult.
--- NOTE | 2020-06-27 22:24 | CT_ITS ---
History: RECURRENT SEIZURES. EXAMINATION: CT Head or Brain W/O Contrast Injection .Sagittal and coronal 2-D reformats were performed TECHNIQUE: Multiple axial images were obtained of the head without intravenous contrast. A radiation dose optimization technique was used for this scan. IV Contrast dosage and agent: None 233 COMPARISON: June 03, 2017 FINDINGS: BRAIN PARENCHYMA: No intra- or extra-axial hemorrhage. No evidence of acute infarct. No intracranial mass or mass effect. There is preservation of the mccall/white matter interface. Posterior fossa structures are unremarkable. CSF SPACES: Appropriate for age. No hydrocephalus. Basal cisterns are patent. CALVARIUM, SKULL BASE, PARANASAL SINUSES AND MASTOID AIR CELLS: Clear. No discrete lytic or blastic abnormalities. ORBITS: Both globes, extraocular muscles, optic nerves and retrobulbar fat appear unremarkable. ASPECTS Score for Acute Strokes: 10 CT/Brain/Head without Contrast IMPRESSION: Negative Brain CT without contrast. Individualized dose optimization techniques were used for this CT. at 2302 Reported and signed by: Ramesh Pickett MD Electronically Signed: Ramesh Pickett MD at 23:01 EST Tel , Service support ,
[2020-06-27] MEDS: levETIRAcetam 750 MG Tablet PO (23:14)
[2020-06-27] MEDS: QUEtiapine 100 MG Tablet 300 MG PO (23:14)
[2020-06-27] MEDS: clonazePAM 0.5 MG Tablet PO (23:15)
--- NOTE | 2020-06-27 23:18 | PCS.PANDOC ---
PANDEMIC DOCUMENTATION INITIATED: Date: Time: 2129
[2020-06-27] MEDS: Doxazosin 4 MG Tablet 6 MG PO (23:22)
[2020-06-27 23:31] LABS: Bedside Glucose 228 mg/dL (70-110)
[2020-06-27 23:49] LABS: Lactic Acid 1.5 mmol/L (0.4-1.9)
[2020-06-28] VITALS (11 sets, daily range): BP systolic 99–146; BP diastolic 61–79; PULSE 82–103; RESP 16–18; TEMP 36.4–36.8; O2SAT 96–100
[2020-06-28] MEDS: 0.9% Normal Saline 1,000 ML 150 ML IV ×4 (03:33→23:41)
[2020-06-28] MEDS: Heparin Injection (Vial) 5,000 UNIT/ML VIAL 5000 UNIT SC ×3 (06:31→21:32)
[2020-06-28] MEDS: clonazePAM 0.5 MG Tablet PO ×3 (06:31→21:30)
[2020-06-28] MEDS: Insulin Lispro 100 UNIT/ML INSULN.PEN SC ×4 (06:42→21:33)
[2020-06-28 06:50] LABS: Absolute Lymphocyte Count 1.44 X10^3/uL (0.83-4.51); Absolute Neutrophil Count 8.2 X10^3/uL (2.0-7.7); Basophil# 0.01 X10^3/uL; Basophil% 0.1 % (0-1); Eosinophil# 0.15 X10^3/uL; Eosinophils% 1.4 % (0-5); Hematocrit 34.5 % (37-47); Hemoglobin 11.5 g/dL (12.0-15.0); Lymphocyte # 1.44 X10^3/ul (4.0); Lymphocyte % 13.2 % (19-41); Mean Corp Hgb Conc 33.3 g/dL (32-36); Mean Corpuscular Hgb 30.3 pg (27.0-32.0); Mean Corpuscular Volume 90.8 fL (81-99); Mean Platelet Vol. 10.2 fl (6.2-12.0); Monocyte# 1.07 X10^3/uL; Monocyte% 9.8 % (0-10); NRBC Flagged by Analyzer 0 % (0-5); Neutrophil # 8.21 X10^3/uL (2.7-7.7); Platelet Count 208 K/mm3 (150-450); RBC Distribution Width CV 14.2 % (11.6-14.6); RBC Distribution Width SD 45.4 fl (35.1-43.9); White Blood Count 10.9 K/mm3 (4.4-11.0)
[2020-06-28 07:13] LABS: ALB/GLOB Ratio 0.8 RATIO (0.9-2.4); AST(SGOT) 19 U/L (15-37); Alanine Aminotransfer ALT/SGPT 25 U/L (13-56); Albumin, Serum 3.2 g/dL (3.2-5.0); Alkaline Phosphatase 253 U/L (45-117); Anion Gap 9 (5-15); BUN 42 mg/dL (7-18); BUN/Creat Ratio 21.4 RATIO (10-20); Calcium,Total 8.5 mg/dL (8.5-10.1); Chloride 104 mmol/L (98-107); Creatinine, Serum 1.96 mg/dL (0.55-1.02); EST Glomerular Filtration Rate 28 mL/min (>60); Est Glom Filt Rate - Afr Amer 34 mL/min (>60); Estimated Creatinine Clearance 27.68 ml/min; Globulin 4.2 g/dL (2.2-4.2); Glucose 215 mg/dL (74-106); Potassium 3.7 mmol/L (3.5-5.1); Protein, Total 7.4 g/dL (6.4-8.2); Sodium Level 135 mmol/L (136-145)
[2020-06-28 08:33] LABS: Bedside Glucose 229 mg/dL (70-110)
[2020-06-28] MEDS: Aspirin 81 MG TAB.CHEW PO (08:57)
[2020-06-28] MEDS: Folic Acid 1 MG Tablet PO (08:57)
[2020-06-28] MEDS: ARIPiprazole 5 MG Tablet PO (08:58)
[2020-06-28] MEDS: levETIRAcetam 750 MG Tablet PO ×2 (08:58→21:30)
[2020-06-28] MEDS: Pantoprazole Sodium 40 MG Tablet PO (08:58)
--- NOTE | 2020-06-28 11:01 | CASEMGMT ---
JOHANA GRIFFIN assessment: Face to Face with patient for initial transition planning/care coordination assessment. RN ELIAS introduced self and role at [facility], pt voices understanding and consents to assessment at this time. Pt is sitting up in bed in no distress with seizure pads in place. Pt is A/Ox4 at this time and answers all questions appropriately at this time. Pt states hx of seizures and states had a seizure prior to coming in as well as the day before. Pt states has been taking her meds but has not seen neurologist 'in awhile.' Pt states has neuro appt scheduled for 07/11/20. Care providers, pharmacy, and demographics verified at this time. Presentation: Sent by for abn kidney labs Admitting dx: Syncope/ZOEY PCP: Orlin Specialists: sunita Askew Preferred Pharmacy: [facility] Insurance: [employer] Prescription Benefit: [employer] Living Will/HPOA: Pt states does not have LW/HPOA and declines AD info at this time. LNOK: Trey Shaw, Living Arrangements: Pt states lives with in 1 story home with 3 steps in and states no concerns at home at this time. Pt states is independent with ADL's. Transportation: Pt states normally drives self(but now won't since seizures) or drives and states no transportation concerns at this time. DME/HHC: Pt states has a cane and shower chair and states no need for any further DME at this time. Pt states no hx of HHC or SNF in the past. Pt states no concerns with going home at time of discharge. 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 Pt states does not smoke cigarettes or drink ETOH. Pt states no further concerns/needs at this time. CM to follow for any further discharge planning/needs. Advised pt to ask for CM if any further questions/concerns/needs arise, voices understanding. Pt Goal: Home Plan[place] JOHANA GRIFFIN
[2020-06-28 11:16] LABS: Bedside Glucose 175 mg/dL (70-110)
--- NOTE | 2020-06-28 12:32 | PN_ITS ---
Patient Problems: Active and Suspected Problems (Last Reviewed 06/16/19 @ 13:31 by Justine Swan) ZOEY (acute kidney injury) (Acute) Subjective: Patient seen and examined. Was admitted with a complaint of recurrent syncope for about 6 months. Also concern that she was having seizures so she was put on Keppra. Her PCP called her to come in this time because it kidney function was abnormal per labs done with a creatinine of 2.51. she complained of headaches this morning. Otherwise she felt well and review of symptoms otherwise negative. She has otherwise remained hemodynamically stable. Creatinine is trended down to 1.96. Vitals/I&O's: Vital Signs Temp Pulse Resp BP Pulse Ox 98.2 F 84 18 124/78 H 96 06/28/20 09:02 06/28/20 10:55 06/28/20 09:02 06/28/20 09:02 06/28/20 09:02 Oxygen Delivery Method Room Air Weight: 208 lb 5.389 oz Body Mass Index (BMI) 35.6 Finger Stick Blood Glucose 495 Orthostatic Vital Signs Start: 06/27/20 21:02 Freq: q24h Status: Active Protocol: Activity Type Activity Date Activity User E-Sign Co-Sign Detail Recorded Client Recorded Date Recorded By Document 06/28/20 06:33 [id number] 06/28/20 06:36 CS 06/28/20 06:33 Orthostatic Vitals Standing -Blood Pressure (90/60-120/80) 100/61 -Extremity Use Left Arm -Pulse Rate (60-100) 103 H Sitting -Blood Pressure (90/60-120/80) 99/68 -Extremity Use Left Arm -Pulse Rate (60-100) 86 Lying -Blood Pressure (90/60-120/80) 132/78 H -Extremity Use Left Arm -Pulse Rate (60-100) 83 Intake and Output for Last 24 Hours 06/26/20 06/27/20 06/28/20 23:59 23:59 23:59 Intake Total 1532.5 / 1532.5 1692.5 / 1692.5 Balance 1532.5 / 1532.5 1692.5 / 1692.5 General: Alert, Oriented x3, Cooperative, No apparent distress HEENT: Atraumatic, PERRLA, EOMI, Normocephalic Oral: Dry Mucosa Neck: Supple, No JVD, Negative Carotid Bruits Lungs: Clear to auscultation, Normal air movement, No rhonchi, No wheeze, No rales Cardiovascular: Regular rate, Regular Rhythm, Normal S1, Normal S2, No murmurs Abdomen: Bowel Sounds Present, Soft, Non Tender, Non-Distended, No Hepato- splenomegaly Extremities: No clubbing, No cyanosis, No edema, Capillary Refill Less than 3 Seconds Skin: No rashes, No breakdown Musculoskeletal: No Tenderness to Palpation of Joints or Extremities Lymphatic: No Cervical, Supraclavicular, or Inguinal Adenopathy Neurological: Cranial nerves II-XII grossly intact, Neuro grossly intact, Motor Exam 5/5 strength throughout Psych/Mental Status: Normal Affect, Appropriate, Alert and oriented to time, place, person, mood and affect Laboratory Results 06/27/20 17:55: WBC 6.4, RBC 3.23 L, Hgb 10.0 L, Hct 30.1 L, MCV 93.2, MCH 31.0, MCHC 33.2, RDW Std Deviation 39.3, RDW Coeff of [place] 11.7, Plt Count 221, MPV 9.4, Immature Gran % (Auto) 0.600, Neut % (Auto) 66.2, Lymph % (Auto) 26.0, [place] % (Auto) 3.7, Eos % (Auto) 3.0, Baso % (Auto) 0.5, Absolute Neuts (auto) 4.3, Absolute Lymphs (auto) 1.67, Nucleated RBC % 0 06/27/20 17:55: Sodium 134 L, Potassium 4.0, Chloride 102, Carbon Dioxide 26.0, Anion Gap 6, BUN 44 H, Creatinine 2.51 H, Estim Creat Clear Calc 21.61, Est GFR (MDRD) Af Amer 25 L, Est GFR (MDRD) Non-Af 21 L, BUN/Creatinine Ratio 17.5, Glucose 426 H, Calcium 8.3 L, Total Bilirubin 0.30, AST 17, ALT 25, Alkaline Phosphatase 280 H, Total Protein 7.6, Albumin 3.3, Globulin 4.3 H, Albumin/Globulin Ratio 0.8 L 06/27/20 17:55: Lactic Acid 2.7 H* 06/27/20 18:35: Urine Color Yellow, Urine Clarity Cloudy, Urine pH 5.0, Ur Specific [place] 1.020, Urine Protein 30 H, Urine Glucose (UA) 1000 H, Urine Ketones Negative, Urine Occult Blood 25 H, Urine Nitrite Positive H, Urine Bilirubin Negative, Urine Urobilinogen Normal, Ur Leukocyte Esterase 500 H, Urine RBC 0-5 SEEN, Urine WBC >100 SEEN, Ur Squamous Epith Cells 0-5 SEEN, Urine Bacteria 2+, Urine Mucus 0 SEEN 06/27/20 23:12: POC Glucose 228 H 06/27/20 23:14: Lactic Acid 1.5 06/28/20 05:54: WBC 10.9, RBC 3.80 L, Hgb 11.5 L, Hct 34.5 L, MCV 90.8, MCH 30.3, MCHC 33.3, RDW Std Deviation 45.4 H, RDW Coeff of [place] 14.2, Plt Count 208, MPV 10.2, Immature Gran % (Auto) 0.500, Neut % (Auto) 75.0 H, Lymph % (Auto) 13.2 L, [place] % (Auto) 9.8, Eos % (Auto) 1.4, Baso % (Auto) 0.1, Absolute Neuts (auto) 8.2 H, Absolute Lymphs (auto) 1.44, Nucleated RBC % 0 06/28/20 05:54: Sodium 135 L, Potassium 3.7, Chloride 104, Carbon Dioxide 22.0, Anion Gap 9, BUN 42 H, Creatinine 1.96 H, Estim Creat Clear Calc 27.68, Est GFR (MDRD) Af Amer 34 L, Est GFR (MDRD) Non-Af 28 L, BUN/Creatinine Ratio 21.4 H, Glucose 215 H, Calcium 8.5, Total Bilirubin 0.30, AST 19, ALT 25, Alkaline Phosphatase 253 H, Total Protein 7.4, Albumin 3.2, Globulin 4.2, Albumin/Globulin Ratio 0.8 L 06/28/20 06:39: POC Glucose 229 H 06/28/20 10:56: POC Glucose 175 H Diagnostic Data Chest X-Ray 06/27/20 18:10 IMPRESSION: Cardiomegaly. No acute cardiopulmonary pathology. Electronically Signed: Trey Solares MD at 18:41 EST , Service support , Brain CT 06/27/20 22:24 IMPRESSION: Negative Brain CT without contrast. Individualized dose optimization techniques were used for this CT. at 2302 Reported and signed by: Ramesh Pickett MD Electronically Signed: Ramesh Pickett MD at 23:01 EST Tel , Service support , Current Medications Acetaminophen (Acetaminophen 325 Mg Tablet) 650 mg PO Q6H PRN PRN PRN Reason: Pain Score 1-10/Temp > 100.7 F Acyclovir (Acyclovir 200 Mg Capsule) 400 mg PO TID PRN PRN PRN Reason: HSV episodes Al Hydroxide/Mg Hydroxide (Mag Hydrox/Al Hydrox/Simeth 30 Ml Udc) 30 ml PO Q6H PRN PRN PRN Reason: Gastric Burning Albuterol Sulfate (Albuterol 2.5 Mg/3 Ml Vial.Neb.) 2.5 mg INHALATION Q2H PRN PRN PRN Reason: SOB/Wheezing Albuterol Sulfate (Albuterol 2.5 Mg/3 Ml Vial.Neb.) 2.5 mg INHALATION Q4H PRN PRN PRN Reason: shortness of breath/wheezing Aripiprazole (Aripiprazole 5 Mg Tablet) 5 mg PO DAILY [facility] Last Admin: 06/28/20 08:58 Dose: 5 mg Documented by: Aspirin (Aspirin 81 Mg Tab.Chew) 81 mg PO DAILY@0800 [facility] Last Admin: 06/28/20 08:57 Dose: 81 mg Documented by: Atorvastatin Calcium (Atorvastatin Calcium 40 Mg Tablet) 40 mg PO QHS [facility] Cholecalciferol (Cholecalciferol (Vit D3) 1,000 Unit (25mcg)) 2,000 unit PO DAILY [facility] Last Admin: 06/28/20 08:58 Dose: 2,000 unit Documented by: Clonazepam (Clonazepam 0.5 Mg Tablet) 0.5 mg PO TID [facility] Last Admin: 06/28/20 06:31 Dose: 0.5 mg Documented by: Dextrose (Dextrose 50%-Water 25 Gm/50 Ml Disp.Syrin) 0 gm IV X1 PRN; Protocol PRN Reason: Hypoglycemia Doxazosin Mesylate (Doxazosin 4 Mg Tablet) 6 mg PO QHS [facility] Last Admin: 06/27/20 23:22 Dose: 6 mg Documented by: Fluticasone Propionate (Fluticasone 0.05% 1 [place] Nasal.Sry) 2 spray NASAL DAILY [facility] Last Admin: 06/28/20 08:59 Dose: Not Given Documented by: Folic Acid (Folic Acid 1 Mg Tablet) 1 mg PO DAILY@0800 [facility] Last Admin: 06/28/20 08:57 Dose: 1 mg Documented by: Glucagon (Glucagon 1 Mg/Ml Syringe) 1 mg IM .X1 PRN PRN Reason: Hypoglycemia Heparin Sodium (Porcine) (Heparin Injection (Vial) 5,000 Unit/Ml Vial) 5,000 unit SC Q8 [facility] Last Admin: 06/28/20 06:31 Dose: 5,000 unit Documented by: Sodium Chloride () 1,000 mls @ 150 mls/hr IV .[id number] [facility] Last Admin: 06/28/20 10:17 Dose: 150 mls/hr Documented by: Sodium Chloride () 250 mls @ 15 mls/hr IV .[id number] PRN PRN Reason: Saline Flush Sodium Chloride () 250 mls @ 15 mls/hr IV .[id number] PRN PRN Reason: Additional IVPB Infusion Insulin Glargine (Insulin Glargine 100 Units/Ml Pen) 28 units SC QHS [facility] Insulin Human Lispro (Insulin Lispro 100 Unit/Ml Insuln.Pen) 0 unit SC ACHS [facility]; Protocol Last Admin: 06/28/20 11:31 Dose: 1 u Documented by: Levetiracetam (Levetiracetam 750 Mg Tablet) 750 mg PO Q12 [facility] Last Admin: 06/28/20 08:58 Dose: 750 mg Documented by: Pantoprazole Sodium (Pantoprazole Sodium 40 Mg Tablet) 40 mg PO DAILY [facility] Last Admin: 06/28/20 08:58 Dose: 40 mg Documented by: Quetiapine Fumarate (Quetiapine 100 Mg Tablet) 300 mg PO QHS [facility] Last Admin: 06/27/20 23:14 Dose: 300 mg Documented by: Sodium Chloride (0.9% Saline Lock 10 Ml Syringe) 10 - 40 ml IV UD PRN PRN Reason: SALINE FLUSH STROKE Vital Signs/Narrative: Vital Signs Temp Pulse Resp BP Pulse Ox 06/28/20 10:55 84 06/28/20 09:02 98.2 F 84 18 124/78 H 96 Medical Necessity - Tobacco Use Smoking Status: Never smoker Tobacco Use: Non-smoker Assessment/Plan All Active Problems (Last Reviewed 06/16/19 @ 13:31 by Justine Swan) Toxic encephalopathy (Acute) Suicide attempt (Acute) Hyperosmolar non-ketotic state in patient with type 2 diabetes mellitus (Acute) ZOEY (acute kidney injury) (Acute) Aspiration pneumonia (Acute) Bilateral tinnitus (Acute) OAB (overactive bladder) (Acute) Hyperglycemia (Acute) Hyperglycemia due to type 2 diabetes mellitus (Acute) Ulcer of left lower extremity with fat layer exposed (Acute) Venous insufficiency (Acute) Lower extremity edema (Acute) Xerosis cutis (Acute) Type 2 diabetes mellitus without complications (Acute) Weakness (Acute) Postconcussion syndrome (Acute) [place] toxicity (Acute) #seizure disorder with recurrent seizures and syncope * Currently on Keppra. States he has been having about 2-3 daily seizures. * Has not had any seizures since admission. * Neurology reviewed patient: Recommend EEG today and say that if further testing does not explain, may benefit from prolonged EEG monitoring given frequency. To continue Keppra at current dose for now and to give Ativan as needed for seizures if there care. * Patient to follow recommendations for seizure IV no driving and no exposure to large bodies of water without another adult present et al * EEG ordered, pending. * Tried several times to call [facility] neurology back, both personally and through the embossing [employer] operator [employer], to no avail. * seizure precautions. Fall precautions * # ZOEY * Creatinine is trended down to 1.96 from 2.51 on admission. baseline around 1. * Continue gentle hydration with IV fluids. Hydrochlorothiazide and losartan on hold. #Type 2 diabetes mellitus: * Poorly controlled. On Lantus 28 units nightly. * Insulin sliding scale. Also on exenatide. Accu-Cheks AC at bedtime. * Check A1c. * # orthostatic hypotension * BP meds on hold. Continue gentle hydration with IV fluids. * #Hypertension: * Hydrochlorothiazide and losartan on hold on account of ZOEY and orthostatic hypotension. * IV hydralazine as needed. * * #Hyperlipidemia: On statin #Bipolar disorder: On Seroquel and Zoloft as well as Abilify and clonazepam. Zoloft held on admission on account of prolonged QT interval. Prophylaxis: On heparin Inpatient E&M: 51066 Subs Hosp L3
[2020-06-28 17:30] LABS: Bedside Glucose 238 mg/dL (70-110)
[2020-06-28] MEDS: QUEtiapine 100 MG Tablet 300 MG PO (21:29)
[2020-06-28] MEDS: Atorvastatin Calcium 40 MG Tablet PO (21:30)
[2020-06-28] MEDS: Doxazosin 4 MG Tablet 6 MG PO (21:31)
[2020-06-28 21:41] LABS: Bedside Glucose 200 mg/dL (70-110)
[2020-06-29] VITALS (9 sets, daily range): BP systolic 68–153; BP diastolic 41–84; PULSE 79–102; RESP 14–18; TEMP 36.7–37.1; O2SAT 97–100
[2020-06-29] MEDS: clonazePAM 0.5 MG Tablet PO ×3 (05:09→20:56)
[2020-06-29] MEDS: Heparin Injection (Vial) 5,000 UNIT/ML VIAL 5000 UNIT SC ×3 (05:09→20:48)
[2020-06-29] MEDS: 0.9% Normal Saline 1,000 ML 150 ML IV ×3 (06:24→20:47)
[2020-06-29] MEDS: Insulin Lispro 100 UNIT/ML INSULN.PEN SC ×4 (06:25→20:59)
[2020-06-29 06:30] LABS: Bedside Glucose 177 mg/dL (70-110)
[2020-06-29 08:22] LABS: Absolute Lymphocyte Count 1.58 X10^3/uL (0.83-4.51); Basophil# 0.02 X10^3/uL; Basophil% 0.4 % (0-1); Eosinophil# 0.24 X10^3/uL; Eosinophils% 4.6 % (0-5); Hematocrit 27.5 % (37-47); Hemoglobin 9.2 g/dL (12.0-15.0); Lymphocyte # 1.58 X10^3/ul (4.0); Lymphocyte % 30.3 % (19-41); Mean Corp Hgb Conc 33.5 g/dL (32-36); Mean Corpuscular Hgb 30.9 pg (27.0-32.0); Mean Corpuscular Volume 92.3 fL (81-99); Mean Platelet Vol. 8.7 fl (6.2-12.0); Monocyte# 0.33 X10^3/uL; Monocyte% 6.3 % (0-10); NRBC Flagged by Analyzer 0 % (0-5); Neutrophil # 2.98 X10^3/uL (2.7-7.7); Neutrophil % 57.2 % (47-70); Platelet Count 209 K/mm3 (150-450); RBC Distribution Width CV 11.7 % (11.6-14.6); RBC Distribution Width SD 38.7 fl (35.1-43.9); Red Blood Count 2.98 M/mm3 (4.2-5.4); White Blood Count 5.2 K/mm3 (4.4-11.0)
[2020-06-29 08:44] LABS: Anion Gap 7 (5-15); BUN 21 mg/dL (7-18); BUN/Creat Ratio 18.8 RATIO (10-20); Calcium,Total 7.9 mg/dL (8.5-10.1); Chloride 111 mmol/L (98-107); Creatinine, Serum 1.12 mg/dL (0.55-1.02); EST Glomerular Filtration Rate 53 mL/min (>60); Est Glom Filt Rate - Afr Amer 65 mL/min (>60); Estimated Creatinine Clearance 48.43 ml/min; Glucose 171 mg/dL (74-106); Potassium 3.8 mmol/L (3.5-5.1); Sodium Level 141 mmol/L (136-145)
[2020-06-29] MEDS: Pantoprazole Sodium 40 MG Tablet PO (09:58)
[2020-06-29] MEDS: levETIRAcetam 750 MG Tablet PO ×2 (09:58→20:48)
[2020-06-29] MEDS: Aspirin 81 MG TAB.CHEW PO (09:59)
[2020-06-29] MEDS: ARIPiprazole 5 MG Tablet PO (09:59)
[2020-06-29] MEDS: Folic Acid 1 MG Tablet PO (09:59)
--- NOTE | 2020-06-29 11:32 | PCM.PN.HOSP ---
Patient Problems: Active and Suspected Problems (Last Reviewed 06/16/19 @ 13:31 by Justine Swan) ZOEY (acute kidney injury) (Acute) Subjective: Patient seen and examined. She feels well this morning. She was however profoundly orthostatic positive this morning. Review of systems otherwise negative. EEG was negative. Vitals/I&O's: Vital Signs Temp Pulse Resp BP Pulse Ox 98.1 F 97 18 148/80 H 100 06/29/20 09:50 06/29/20 09:50 06/29/20 09:50 06/29/20 09:50 06/29/20 09:50 Oxygen Delivery Method Room Air Weight: 209 lb 14.081 oz Body Mass Index (BMI) 35.6 Finger Stick Blood Glucose 495 Orthostatic Vital Signs Start: 06/27/20 21:02 Freq: q24h Status: Active Protocol: Activity Type Activity Date Activity User E-Sign Co-Sign Detail Recorded Client Recorded Date Recorded By Document 06/29/20 04:57 [id number] 06/29/20 05:04 06/29/20 04:57 Orthostatic Vitals Standing -Blood Pressure (90/60-120/80) 68/41 L -Extremity Use Left Arm -Pulse Rate (60-100) 102 H Sitting -Blood Pressure (90/60-120/80) 94/63 -Extremity Use Left Arm -Pulse Rate (60-100) 90 Lying -Blood Pressure (90/60-120/80) 120/66 -Extremity Use Left Arm -Pulse Rate (60-100) 86 Intake and Output for Last 24 Hours 06/27/20 06/28/20 06/29/20 23:59 23:59 23:59 Intake Total 1532.5 / 1532.5 5372.5 / 5522.5 1750 / 1750 Output Total 700 / 700 1800 / 1800 Balance 1532.5 / 1532.5 4672.5 / 4822.5 -50 / -50 General: Alert, Oriented x3, Cooperative, No apparent distress HEENT: Atraumatic, PERRLA, EOMI, Normocephalic Oral: Dry Mucosa Neck: Supple, No JVD, Negative Carotid Bruits Lungs: Clear to auscultation, Normal air movement, No rhonchi, No wheeze, No rales Cardiovascular: Regular rate, Regular Rhythm, Normal S1, Normal S2, No murmurs Abdomen: Bowel Sounds Present, Soft, Non Tender, Non-Distended, No Hepato-splenomegaly Extremities: No clubbing, No cyanosis, No edema, Capillary Refill Less than 3 Seconds Skin: No rashes, No breakdown Musculoskeletal: No Tenderness to Palpation of Joints or Extremities Lymphatic: No Cervical, Supraclavicular, or Inguinal Adenopathy Neurological: Cranial nerves II-XII grossly intact, Neuro grossly intact, Motor Exam 5/5 strength throughout Psych/Mental Status: Normal Affect, Appropriate, Alert and oriented to time, place, person, mood and affect Microbiology Past 72 Hours 06/27/20 18:35 Urine, Clean Catch Urine Culture - Final Klebsiella oxytoca Laboratory Results 06/28/20 17:09: POC Glucose 238 H 06/28/20 21:28: POC Glucose 200 H 06/29/20 06:23: POC Glucose 177 H 06/29/20 07:54: WBC 5.2, RBC 2.98 L, Hgb 9.2 L, Hct 27.5 L, MCV 92.3, MCH 30.9, MCHC 33.5, RDW Std Deviation 38.7, RDW Coeff of Emery 11.7, Plt Count 209, MPV 8.7, Immature Gran % (Auto) 1.200 H, Neut % (Auto) 57.2, Lymph % (Auto) 30.3, [place] % (Auto) 6.3, Eos % (Auto) 4.6, Baso % (Auto) 0.4, Absolute Neuts (auto) 3.0, Absolute Lymphs (auto) 1.58, Nucleated RBC % 0 06/29/20 07:54: Sodium 141, Potassium 3.8, Chloride 111 H, Carbon Dioxide 23.0, Anion Gap 7, BUN 21 H, Creatinine 1.12 H, Estim Creat Clear Calc 48.43, Est GFR (MDRD) Af Amer 65, Est GFR (MDRD) Non-Af 53 L, BUN/Creatinine Ratio 18.8, Glucose 171 H, Calcium 7.9 L Current Medications Acetaminophen (Acetaminophen 325 Mg Tablet) 650 mg PO Q6H PRN PRN PRN Reason: Pain Score 1-10/Temp > 100.7 F Acyclovir (Acyclovir 200 Mg Capsule) 400 mg PO TID PRN PRN PRN Reason: HSV episodes Al Hydroxide/Mg Hydroxide (Mag Hydrox/Al Hydrox/Simeth 30 Ml Udc) 30 ml PO Q6H PRN PRN PRN Reason: Gastric Burning Albuterol Sulfate (Albuterol 2.5 Mg/3 Ml Vial.Neb.) 2.5 mg INHALATION Q2H PRN PRN PRN Reason: SOB/Wheezing Albuterol Sulfate (Albuterol 2.5 Mg/3 Ml Vial.Neb.) 2.5 mg INHALATION Q4H PRN PRN PRN Reason: shortness of breath/wheezing Aripiprazole (Aripiprazole 5 Mg Tablet) 5 mg PO DAILY [facility] Last Admin: 06/29/20 09:59 Dose: 5 mg Documented by: Aspirin (Aspirin 81 Mg Tab.Chew) 81 mg PO DAILY@0800 [facility] Last Admin: 06/29/20 09:59 Dose: 81 mg Documented by: Atorvastatin Calcium (Atorvastatin Calcium 40 Mg Tablet) 40 mg PO QHS [facility] Last Admin: 06/28/20 21:30 Dose: 40 mg Documented by: Cholecalciferol (Cholecalciferol (Vit D3) 1,000 Unit (25mcg)) 2,000 unit PO DAILY [facility] Last Admin: 06/29/20 09:58 Dose: 2,000 unit Documented by: Clonazepam (Clonazepam 0.5 Mg Tablet) 0.5 mg PO TID [facility] Last Admin: 06/29/20 05:09 Dose: 0.5 mg Documented by: Dextrose (Dextrose 50%-Water 25 Gm/50 Ml Disp.Syrin) 0 gm IV X1 PRN; Protocol PRN Reason: Hypoglycemia Doxazosin Mesylate (Doxazosin 4 Mg Tablet) 6 mg PO QHS [facility] Last Admin: 06/28/20 21:31 Dose: 6 mg Documented by: Fludrocortisone Acetate (Fludrocortisone Acetate 0.1 Mg Tablet) 0.1 mg PO DAILY@0800 [facility] Fluticasone Propionate (Fluticasone 0.05% 1 [place] Nasal.Sry) 2 spray NASAL DAILY [facility] Last Admin: 06/29/20 10:01 Dose: Not Given Documented by: Folic Acid (Folic Acid 1 Mg Tablet) 1 mg PO DAILY@0800 [facility] Last Admin: 06/29/20 09:59 Dose: 1 mg Documented by: Glucagon (Glucagon 1 Mg/Ml Syringe) 1 mg IM .X1 PRN PRN Reason: Hypoglycemia Heparin Sodium (Porcine) (Heparin Injection (Vial) 5,000 Unit/Ml Vial) 5,000 unit SC Q8 [facility] Last Admin: 06/29/20 05:09 Dose: 5,000 unit Documented by: Sodium Chloride () 1,000 mls @ 150 mls/hr IV .Q6H40M [facility] Last Admin: 06/29/20 06:24 Dose: 150 mls/hr Documented by: Sodium Chloride () 250 mls @ 15 mls/hr IV .[id number] PRN PRN Reason: Saline Flush Sodium Chloride () 250 mls @ 15 mls/hr IV .[id number] PRN PRN Reason: Additional IVPB Infusion Insulin Glargine (Insulin Glargine 100 Units/Ml Pen) 28 units SC QHS [facility] Last Admin: 06/28/20 21:34 Dose: 28 units Documented by: Insulin Human Lispro (Insulin Lispro 100 Unit/Ml Insuln.Pen) 0 unit SC ACHS [facility]; Protocol Last Admin: 06/29/20 11:27 Dose: 1 u Documented by: Levetiracetam (Levetiracetam 750 Mg Tablet) 750 mg PO Q12 [facility] Last Admin: 06/29/20 09:58 Dose: 750 mg Documented by: Pantoprazole Sodium (Pantoprazole Sodium 40 Mg Tablet) 40 mg PO DAILY [facility] Last Admin: 06/29/20 09:58 Dose: 40 mg Documented by: Quetiapine Fumarate (Quetiapine 100 Mg Tablet) 300 mg PO QHS [facility] Last Admin: 06/28/20 21:29 Dose: 300 mg Documented by: Sodium Chloride (0.9% Saline Lock 10 Ml Syringe) 10 - 40 ml IV UD PRN PRN Reason: SALINE FLUSH STROKE Vital Signs/Narrative: Vital Signs Temp Pulse Resp BP Pulse Ox 06/29/20 09:50 98.1 F 97 18 148/80 H 100 Medical Necessity - Tobacco Use Smoking Status: Never smoker Tobacco Use: Non-smoker Assessment/Plan All Active Problems (Last Reviewed 06/16/19 @ 13:31 by Justine Swan) Toxic encephalopathy (Acute) Suicide attempt (Acute) Hyperosmolar non-ketotic state in patient with type 2 diabetes mellitus (Acute) ZOEY (acute kidney injury) (Acute) Aspiration pneumonia (Acute) Bilateral tinnitus (Acute) OAB (overactive bladder) (Acute) Hyperglycemia (Acute) Hyperglycemia due to type 2 diabetes mellitus (Acute) Ulcer of left lower extremity with fat layer exposed (Acute) Venous insufficiency (Acute) Lower extremity edema (Acute) Xerosis cutis (Acute) Type 2 diabetes mellitus without complications (Acute) Weakness (Acute) Postconcussion syndrome (Acute) [place] toxicity (Acute) #seizure disorder with recurrent seizures and syncope on KEppra EEG showed no seizures, focal, lateralized or epileptiform abnormalities. continue Keppra I think her syncopal episodes are all due to orthostatic hyotension PT/OT on board seizure precautions. Fall precautions # ZOEY Cr down to 1.12. Resolved. #Type 2 diabetes mellitus: Poorly controlled. On Lantus 28 units nightly. Insulin sliding scale. Also on exenatide. Accu-Cheks AC at bedtime. Check A1c. # orthostatic hypotension remains profoundly orthostatic positive. start fludrocortisone 0.1mg daily. continue holding BP meds discontinue hydrochlorthiazide permanently #Hypertension: Hydrochlorothiazide and losartan on hold on account of ZOEY and orthostatic hypotension. IV hydralazine as needed. #Hyperlipidemia: On statin #Bipolar disorder: On Seroquel and Zoloft as well as Abilify and clonazepam. Zoloft held on admission on account of prolonged QT interval. DVT Prophylaxis: On heparin Disposition: for likely dc tomorrow. Inpatient E&M: 55851 Subs Hosp L2
[2020-06-29 11:40] LABS: Bedside Glucose 215 mg/dL (70-110)
[2020-06-29] MEDS: Fludrocortisone Acetate 0.1 MG Tablet PO (12:14)
[2020-06-29 17:01] LABS: Bedside Glucose 189 mg/dL (70-110)
[2020-06-29] MEDS: QUEtiapine 100 MG Tablet 300 MG PO (20:49)
[2020-06-29] MEDS: Doxazosin 4 MG Tablet 6 MG PO (20:49)
[2020-06-29] MEDS: Atorvastatin Calcium 40 MG Tablet PO (20:50)
[2020-06-29 21:11] LABS: Bedside Glucose 156 mg/dL (70-110)
[2020-06-30 03:20] VITALS: BP 127/79; PULSE 98; RESP 18; TEMP 36.4; O2SAT 100
[2020-06-30] MEDS: 0.9% Normal Saline 1,000 ML 150 ML IV (03:40)
[2020-06-30 05:57] LABS: Absolute Lymphocyte Count 1.79 X10^3/uL (0.83-4.51); Basophil# 0.02 X10^3/uL; Basophil% 0.4 % (0-1); Eosinophil# 0.23 X10^3/uL; Eosinophils% 4.3 % (0-5); Hematocrit 24.6 % (37-47); Hemoglobin 8.4 g/dL (12.0-15.0); Lymphocyte # 1.79 X10^3/ul (4.0); Lymphocyte % 33.5 % (19-41); Mean Corp Hgb Conc 34.1 g/dL (32-36); Mean Corpuscular Volume 90.8 fL (81-99); Mean Platelet Vol. 8.8 fl (6.2-12.0); Monocyte# 0.28 X10^3/uL; Monocyte% 5.2 % (0-10); NRBC Flagged by Analyzer 0 % (0-5); Neutrophil # 2.97 X10^3/uL (2.7-7.7); Neutrophil % 55.7 % (47-70); Platelet Count 198 K/mm3 (150-450); RBC Distribution Width CV 11.6 % (11.6-14.6); RBC Distribution Width SD 37.6 fl (35.1-43.9); Red Blood Count 2.71 M/mm3 (4.2-5.4); White Blood Count 5.3 K/mm3 (4.4-11.0)
[2020-06-30 06:00] VITALS: BP 125/82; BP 136/76; BP 79/52; PULSE 113; PULSE 87; PULSE 95
[2020-06-30] MEDS: Heparin Injection (Vial) 5,000 UNIT/ML VIAL 5000 UNIT SC (06:20)
[2020-06-30] MEDS: clonazePAM 0.5 MG Tablet PO (06:20)
[2020-06-30] MEDS: Insulin Lispro 100 UNIT/ML INSULN.PEN SC ×2 (06:24→10:53)
[2020-06-30 06:32] LABS: Anion Gap 7 (5-15); BUN 19 mg/dL (7-18); BUN/Creat Ratio 19.8 RATIO (10-20); Calcium,Total 7.2 mg/dL (8.5-10.1); Chloride 108 mmol/L (98-107); Creatinine, Serum 0.96 mg/dL (0.55-1.02); EST Glomerular Filtration Rate 64 mL/min (>60); Est Glom Filt Rate - Afr Amer 77 mL/min (>60); Glucose 207 mg/dL (74-106); Potassium 3.3 mmol/L (3.5-5.1); Sodium Level 140 mmol/L (136-145)
[2020-06-30 06:56] LABS: Bedside Glucose 208 mg/dL (70-110)
[2020-06-30 07:00] VITALS: PULSE 83
[2020-06-30] MEDS: Fludrocortisone Acetate 0.1 MG Tablet PO (08:06)
[2020-06-30] MEDS: Aspirin 81 MG TAB.CHEW PO (08:06)
[2020-06-30] MEDS: Folic Acid 1 MG Tablet PO (08:06)
[2020-06-30 09:00] VITALS: BP 141/83; PULSE 86; RESP 16; TEMP 36.5; O2SAT 99
[2020-06-30] MEDS: levETIRAcetam 750 MG Tablet PO (09:01)
[2020-06-30] MEDS: ARIPiprazole 5 MG Tablet PO (09:01)
[2020-06-30] MEDS: Pantoprazole Sodium 40 MG Tablet PO (09:01)
--- NOTE | 2020-06-30 10:26 | DCINST_ITS ---
- Discharge Diagnoses Current Active Problems: Current Active and Chronic Problems (Last Reviewed 06/16/19 @ 13:31 by Justine Swan) Diabetes (Chronic) ZOEY (acute kidney injury) (Acute) Depression with anxiety (Chronic) Type 2 diabetes mellitus (Chronic) HTN (hypertension) (Chronic) CKD (chronic kidney disease) (Chronic) Seizures (Chronic) Obesity (BMI 30-39.9) (Chronic) You will use the following diet at home:: Cardiac Your food should be the consistency of: Regular Your liquids should be the consistency of: Regular/Thin Discharge Activity: Return to Normal Activity Weight Bearing Status: Weight bearing as tolerated Call your doctor if you observe: Fever of 101 or Higher, Shortness of breath, Dizziness, Swelling in the ankles, Chest pain Instructions: What Is Syncope?, ED Hypotension, Orthostatic Additional Instructions: wear MIRTA stockings to help with orthostatic hypotension. Follow up with neurologist in 1-2 weeks. To follow state recommendations on driving restrictions for seizures; no driving, no exposure to large water bodies without adults nearby, using heavy machinery and should avoid great heights. To see neurologist for clearance about when she can drive. Allergies/Adverse Reactions: Allergies metformin Allergy (Severe, Verified 06/27/20 21:03) Nausea aspartame Allergy (Verified 06/27/20 21:03) Swelling latex Allergy (Verified 06/27/20 21:03) Unknown Penicillins Allergy (Verified 06/27/20 21:03) Laryngospasms Medications to take at Discharge albuterol sulfate 90 mcg/actuation aerosol inhaler 1 - 2 puff INHALATION Q6H PRN #8.5 g 03/01/19 albuterol sulfate 2.5 mg INHALATION Q4H PRN #180 ml 05/03/19 clonazepam 0.5 mg tablet 0.5 mg PO TID 30 Days #90 tab 05/09/19 valacyclovir 500 mg tablet 500 mg PO Q12H PRN #20 tab 09/19/19 Aripiprazole 5 mg PO DAILY 06/27/20 Aspirin 81 mg PO DAILY@0800 06/27/20 Atorvastatin Calcium [Lipitor] 40 mg PO QHS 06/27/20 Cholecalciferol (Vitamin D3) [Vitamin D3] See Rx Instructions .ROUTE .COMPLEX 06/27/20 Exenatide Microspheres [Bydureon Bcise] 2 mg SC WE 06/27/20 Fluticasone Propionate 2 spray INTRANASAL DAILY 06/27/20 Folic Acid 1 mg PO DAILY@0800 06/27/20 Insulin Glargine [Lantus SoloStar Pen] 28 unit SC QHS 06/27/20 Levetiracetam 750 mg PO Q12H 06/27/20 Losartan Potassium 100 mg PO DAILY 06/27/20 Oxybutynin Chloride 5 mg PO TID 06/27/20 Pantoprazole Sodium 40 mg PO DAILY 06/27/20 Prazosin HCl 1 mg PO QHS 06/27/20 Prazosin HCl 2 mg PO QHS 06/27/20 Prazosin HCl 5 mg PO QHS 06/27/20 Quetiapine Fumarate [Seroquel] 300 mg PO QHS 06/27/20 Sertraline HCl [Zoloft] 50 mg PO DAILY 06/27/20 Fludrocortisone Acetate [Florinef] 0.1 mg PO DAILY@0800 #30 tab 06/30/20 The following prescriptions were given: Fludrocortisone Acetate [Florinef] 0.1 mg PO DAILY@0800 #30 tab Transmission Status: Pending to [facility][id number] Orders to be completed after discharge: Edie High Mirta Ovalles Location: None Selected Primary Care Physician: Trudy Ordaz MD [Primary Care Provider] - Please follow up with your Primary Care Physician in: 1-2 weeks Test Results: Test results from this visit will be discussed in further detail at your follow- up appointment, if applicable. Proposed Discharge Date: 06/30/20
--- NOTE | 2020-06-30 13:38 | DS.PCM_ITS ---
Discharge Date and Diagnosis - Problem List Patient Problems: Active and Suspected Problems (Last Reviewed 06/16/19 @ 13:31 by Justine Swan) ZOEY (acute kidney injury) (Acute) Date of Admission: 06/27/20 Date of Discharge: 06/30/20 - Primary Discharge Diagnosis Acute Problems: Active Problems (Last Reviewed 06/16/19 @ 13:31 by Justine Swan) ZOEY (acute kidney injury) (Acute) syncope orthostatic hypotension - Secondary Discharge Diagnosis Chronic Problems: Chronic Problems (Last Reviewed 06/16/19 @ 13:31 by Justine Swan) Abdominal pain (Chronic) Hypokalemia (Chronic) Hypomagnesemia (Chronic) Diabetes (Chronic) Anxiety (Chronic) Depression with anxiety (Chronic) Type 2 diabetes mellitus (Chronic) Hyperlipidemia (Chronic) HTN (hypertension) (Chronic) CKD (chronic kidney disease) (Chronic) Chronic ulcer of left foot with fat layer exposed (Chronic) Seizures (Chronic) Obesity (BMI 30-39.9) (Chronic) Sleep concern (Chronic) Dyspnea (Chronic) Abnormal thyroid function test (Chronic) Hypersomnolence (Chronic) Pulmonary hypertension (Chronic) Diabetic foot ulcer (Chronic) Hospital Course and Treatment Imaging Results: Diagnostic Data Chest X-Ray 06/27/20 18:10 IMPRESSION: Cardiomegaly. No acute cardiopulmonary pathology. Electronically Signed: Trey Solares MD at 18:41 EST , Service support , Brain CT 06/27/20 22:24 IMPRESSION: Negative Brain CT without contrast. Individualized dose optimization techniques were used for this CT. at 2302 Reported and signed by: Ramesh Pickett MD Electronically Signed: Ramesh Pickett MD at 23:01 EST Tel , Service support , neurology- SOC neurology Operations: None Procedures: None Summary of Care Provided: The patient is a 54 year old F with past medical history as outlined in a recent diagnosis of seizure disorder and had been following up with a neurologist in [place] and was started on Keppra. Patient was admitted through the ED on 06/27/2020 with a complaint of recurrent syncope. also says she had assisted jerking of extremities which lasted for about 3 minutes and also had incontinence. There were concerns that this syncope could possibly be due to seizures. She went see her PCP and blood work was done. On the basis of the blood work which was abnormal with elevated creatinine, his PCP called her and she was told to come into the ED. Creatinine was 2.51 and labs were otherwise normal. He was admitted and managed for ZOEY and recurrent syncope and seizure disorder. She was continued on her Keppra. Blood pressure medications were held. Orthostatics were checked and were positive. She was hydrated with IV f luids. Neurology was consulted and recommended EEG. EEG done showed no evidence of seizures of focal lateralized or epileptiform abnormalities. As mentioned, orthostatics were profoundly positive and was thought that his symptoms were likely due to orthostatic hypotension. She was therefore started on fludrocortisone 0.1 mg daily and ordered MIRTA stockings. Her HCTZ was permanently discontinued. Patient remained stable and was discharged home on 06/30/2020. SHe was counseled that per neurology recommendations, she is to avoid driving until cleared by her neurologist and is also not to go by large water bodies without adults nearby and to follow all state recommendations for patients with seizure disorder until cleared by her neurologist. Patient seen and examined prior to discharge. She had no complaints and felt well. Review of systems otherwise negative. Labs and vitals reviewed. Home medication reviewed and reconciled. O/E Vital Signs Temp Pulse Resp BP Pulse Ox 97.7 F L 86 16 141/83 H 99 06/30/20 09:00 06/30/20 09:00 06/30/20 09:00 06/30/20 09:00 06/30/20 09:00 General: Alert, Oriented x3, Cooperative, No apparent distress HEENT: Atraumatic, PERRLA, EOMI, Normocephalic Oral: Dry Mucosa Neck: Supple, No JVD, Negative Carotid Bruits Lungs: Clear to auscultation, Normal air movement, No rhonchi, No wheeze, No rales Cardiovascular: Regular rate, Regular Rhythm, Normal S1, Normal S2, No murmurs Abdomen: Bowel Sounds Present, Soft, Non Tender, Non-Distended, No Hepato- splenomegaly Extremities: No clubbing, No cyanosis, No edema, Capillary Refill Less than 3 Seconds Skin: No rashes, No breakdown Musculoskeletal: No Tenderness to Palpation of Joints or Extremities Lymphatic: No Cervical, Supraclavicular, or Inguinal Adenopathy Neurological: Cranial nerves II-XII grossly intact, Neuro grossly intact, Motor Exam 5/5 strength throughout Psych/Mental Status: Normal Affect, Appropriate, Alert and oriented to time, place, person, mood and affect Plan is for discharge home today. Patient Problems: Active and Suspected Problems (Last Reviewed 06/16/19 @ 13:31 by Justine Swan) ZOEY (acute kidney injury) (Acute) - Physical Exam Vitals/I&O's: Vital Signs Temp Pulse Resp BP Pulse Ox 97.7 F L 86 16 141/83 H 99 06/30/20 09:00 06/30/20 09:00 06/30/20 09:00 06/30/20 09:00 06/30/20 09:00 Oxygen Delivery Method Room Air Weight: 213 lb 14.4 oz Body Mass Index (BMI) 35.6 Finger Stick Blood Glucose 495 Intake and Output for Last 24 Hours 06/28/20 06/29/20 06/30/20 23:59 23:59 23:59 Intake Total 5372.5 / 5522.5 5240 / 5240 2029 / 2029 Output Total 700 / 700 3250 / 3250 500 / 500 Balance 4672.5 / 4822.5 1989 1530 / 1530 Microbiology Past 72 Hours 06/27/20 18:35 Urine, Clean Catch Urine Culture - Final Klebsiella oxytoca Laboratory Results 06/29/20 16:54: POC Glucose 189 H 06/29/20 20:59: POC Glucose 156 H 06/30/20 05:45: WBC 5.3, RBC 2.71 L, Hgb 8.4 L, Hct 24.6 L, MCV 90.8, MCH 31.0, MCHC 34.1, RDW Std Deviation 37.6, RDW Coeff of Emery 11.6, Plt Count 198, MPV 8.8, Immature Gran % (Auto) 0.900, Neut % (Auto) 55.7, Lymph % (Auto) 33.5, [place] % (Auto) 5.2, Eos % (Auto) 4.3, Baso % (Auto) 0.4, Absolute Neuts (auto) 3.0, Absolute Lymphs (auto) 1.79, Nucleated RBC % 0 06/30/20 05:45: Sodium 140, Potassium 3.3 L, Chloride 108 H, Carbon Dioxide 25.0, Anion Gap 7, BUN 19 H, Creatinine 0.96, Estim Creat Clear Calc 56.50, Est GFR (MDRD) Af Amer 77, Est GFR (MDRD) Non-Af 64, BUN/Creatinine Ratio 19.8, Glucose 207 H, Calcium 7.2 L 06/30/20 06:03: POC Glucose 208 H Discharge Diet: Low fat/ Low Cholesterol Discharge Activity: Return to Normal Activity Weight Bearing Status: Weight bearing as tolerated Call your doctor if you observe: Fever of 101 or Higher, Shortness of breath, Dizziness, Swelling in the ankles, Chest pain Home Medications: Medications to take at Discharge albuterol sulfate 90 mcg/actuation aerosol inhaler 1 - 2 puff INHALATION Q6H PRN #8.5 g 03/01/19 albuterol sulfate 2.5 mg INHALATION Q4H PRN #180 ml 05/03/19 clonazepam 0.5 mg tablet 0.5 mg PO TID 30 Days #90 tab 05/09/19 valacyclovir 500 mg tablet 500 mg PO Q12H PRN #20 tab 09/19/19 Aripiprazole 5 mg PO DAILY 06/27/20 Aspirin 81 mg PO DAILY@0800 06/27/20 Atorvastatin Calcium [Lipitor] 40 mg PO QHS 06/27/20 Cholecalciferol (Vitamin D3) [Vitamin D3] See Rx Instructions .ROUTE .COMPLEX 06/27/20 Exenatide Microspheres [Bydureon Bcise] 2 mg SC WE 06/27/20 Fluticasone Propionate 2 spray INTRANASAL DAILY 06/27/20 Folic Acid 1 mg PO DAILY@0800 06/27/20 Insulin Glargine [Lantus SoloStar Pen] 28 unit SC QHS 06/27/20 Levetiracetam 750 mg PO Q12H 06/27/20 Losartan Potassium 100 mg PO DAILY 06/27/20 Oxybutynin Chloride 5 mg PO TID 06/27/20 Pantoprazole Sodium 40 mg PO DAILY 06/27/20 Prazosin HCl 1 mg PO QHS 06/27/20 Prazosin HCl 2 mg PO QHS 06/27/20 Prazosin HCl 5 mg PO QHS 06/27/20 Quetiapine Fumarate [Seroquel] 300 mg PO QHS 06/27/20 Sertraline HCl [Zoloft] 50 mg PO DAILY 06/27/20 Fludrocortisone Acetate [Florinef] 0.1 mg PO DAILY@0800 #30 tab 06/30/20 Following Prescriptions Were Given to Patient: Fludrocortisone Acetate [Florinef] 0.1 mg PO DAILY@0800 #30 tab Transmission Status: Received by [id number] Other Amb Orders: Knee High Mirta Hose Location: None Selected Primary Care Physician: Trudy Ordaz MD [Primary Care Provider] - Please follow up with your Primary Care Physician in: 1-2 weeks Patient Instructions: What Is Syncope?, ED Hypotension, Orthostatic Disposition: Home Minutes spent on discharge:: 45 Patient Condition:: Stable Medical Necessity - Tobacco Use Smoking Status: Never smoker Tobacco Use: Non-smoker Meaningful Use Info Meaningful Use Diagnoses (Choose all that apply): None applicable Inpatient E&M: 00143 Disch Hosp
[2020-07-01 00:11] LABS: Bedside Glucose 170 mg/dL (70-110)
--- NOTE | 2020-07-01 15:04 | CASEMGMT ---
JOHANA GRIFFIN Discharge F/U Phone Call LACE: 11 Strata: 3 Discharge date: 06/30/20 Call date: 07/01/20 Call time: [id number] Admission dx: Syncope/ZOEY Pt states is 'doing really well' since discharge. Pt states no questions regarding discharge instructions or medications at this time. Pt states has f/u with neuro on 07/11/20 and plans to keep. Pt states non suggestions for [facility] at this time and states 'I was quite impressed with the way I was taken care of. Everyone was very nice.' Pt voices no further questions/concerns/needs at this time. [place] JOHANA GRIFFIN
== END 2020-06-30 11:37 | disposition home or self-care (01) | DRG 469 ==
LOC: ED 18:28 → PCU 19:53
PROVIDERS: Admitting Provider Internal Medicine; Emergency Provider Emergency Medicine; PCP Internal Medicine; Visit Provider Student in an Organized Health Care Education/Training Program
DX: N17.9 Acute kidney failure, unspecified (principal); E86.0 Dehydration; I95.1 Orthostatic hypotension; E78.5 Hyperlipidemia, unspecified; E11.22 Type 2 diabetes mellitus with diabetic chronic kidney disease; I12.9 Hypertensive chronic kidney disease with stage 1 through stage 4 chronic kidney disease, or unspecified chronic kidney disease; N18.9 Chronic kidney disease, unspecified; G40.909 Epilepsy, unspecified, not intractable, without status epilepticus; E11.65 Type 2 diabetes mellitus with hyperglycemia; F41.8 Other specified anxiety disorders; E66.9 Obesity, unspecified; I27.20 Pulmonary hypertension, unspecified; K52.9 Noninfective gastroenteritis and colitis, unspecified; K21.9 Gastro-esophageal reflux disease without esophagitis; E28.2 Polycystic ovarian syndrome; F31.9 Bipolar disorder, unspecified; E11.621 Type 2 diabetes mellitus with foot ulcer; L97.522 Non-pressure chronic ulcer of other part of left foot with fat layer exposed; Z87.01 Personal history of pneumonia (recurrent); Z79.4 Long term (current) use of insulin; Z79.899 Other long term (current) drug therapy; Z68.35 Body mass index [BMI] 35.0-35.9, adult; Z87.442 Personal history of urinary calculi; Z79.82 Long term (current) use of aspirin
CPT/HCPCS: 36415; 70450; 71045; 80048; 80053; 80061; 80177; 81001; 82962; 83605; 84443; 85025; 87077; 87086; 87088; 87186; 93005; 95819; 99251; 99285; J7030; J7040; A4216; G0463; J0610

== ENCOUNTER → 2020-07-10 13:08 | Outpatient (CLI) | payer MEDICAID, SELFPAY ==
[2020-07-09 16:35] VITALS: BMI 35.9
[2020-07-10 13:23] LABS: Bacteria 0 SEEN /hpf (None Seen); Mucous, Urine 0 SEEN /hpf (<or=2+)
[2020-07-10 13:53] LABS: Absolute Lymphocyte Count 1.61 X10^3/uL (0.83-4.51); Absolute Neutrophil Count 5.4 X10^3/uL (2.0-7.7); Basophil# 0.03 X10^3/uL; Basophil% 0.4 % (0-1); Eosinophil# 0.28 X10^3/uL; Eosinophils% 3.7 % (0-5); Hematocrit 31.1 % (37-47); Hemoglobin 10.7 g/dL (12.0-15.0); Lymphocyte # 1.61 X10^3/ul (4.0); Mean Corp Hgb Conc 34.4 g/dL (32-36); Mean Corpuscular Hgb 31.1 pg (27.0-32.0); Mean Corpuscular Volume 90.4 fL (81-99); Mean Platelet Vol. 9.4 fl (6.2-12.0); Monocyte# 0.27 X10^3/uL; Monocyte% 3.5 % (0-10); NRBC Flagged by Analyzer 0 % (0-5); Neutrophil % 70.6 % (47-70); Platelet Count 252 K/mm3 (150-450); RBC Distribution Width CV 11.9 % (11.6-14.6); RBC Distribution Width SD 38.1 fl (35.1-43.9); Red Blood Count 3.44 M/mm3 (4.2-5.4); White Blood Count 7.7 K/mm3 (4.4-11.0)
[2020-07-10 14:10] LABS: Color, Urine Yellow (Yellow); Glucose, Dipstick Normal (Normal); Ketone-Dipstick Negative (Negative); Leukocyte Esterase-Dipstick 100 /ul (Negative); Nitrite-Dipstick Negative (Negative); Occult Blood-Urine Negative /ul (Negative); Protein-Dipstick Negative (Negative); Specific Gravity, Urine 1.015 (1.002-1.030); Urine Bilirubin Dipstick Negative (Negative); Urine Clarity Clear (Clear); Urine Urobilinogen Normal (Normal)
[2020-07-10 14:21] LABS: ALB/GLOB Ratio 0.7 RATIO (0.9-2.4); AST(SGOT) 26 U/L (15-37); Alanine Aminotransfer ALT/SGPT 37 U/L (13-56); Albumin, Serum 3.3 g/dL (3.2-5.0); Alkaline Phosphatase 297 U/L (45-117); Anion Gap 8 (5-15); BUN 40 mg/dL (7-18); BUN/Creat Ratio 17.3 RATIO (10-20); Calcium,Total 8.3 mg/dL (8.5-10.1); Chloride 95 mmol/L (98-107); Creatinine, Serum 2.31 mg/dL (0.55-1.02); EST Glomerular Filtration Rate 23 mL/min (>60); Est Glom Filt Rate - Afr Amer 28 mL/min (>60); Globulin 4.6 g/dL (2.2-4.2); Glucose 280 mg/dL (74-106); Potassium 3.5 mmol/L (3.5-5.1); Protein, Total 7.9 g/dL (6.4-8.2); Sodium Level 134 mmol/L (136-145)
[2020-07-10 14:29] LABS: Red Blood Cells-Urine 0 SEEN /hpf (0-5); Squamous Epithelial Cells - UA 0 SEEN /hpf (5-10); White Blood Cells 0-5 SEEN /hpf (0-5)
[2020-07-14 20:35] LABS: KEPPRA (LEVETIRACETAM) 37.3 ug/mL (10.0-40.0)
== END ==
PROVIDERS: PCP Internal Medicine; Referring Provider Nurse Practitioner Family; Visit Provider Nurse Practitioner Family
DX: R41.82 Altered mental status, unspecified (principal); R55 Syncope and collapse
CPT/HCPCS: 36415; 80053; 80177; 80307; 81001; 82140; 85025; 87086; 87088

== ENCOUNTER → 2020-08-01 14:53 | Outpatient (CLI) | payer MEDICAID, SELFPAY ==
[2020-07-17 15:16] VITALS: BMI 35.9
--- NOTE | 2020-08-01 14:54 | ECHOCS_ITS ---
Reason For Study: SYNCOPE Procedure This was a 2D Doppler, Color Flow transthoracic echocardiogram. The study was technically difficult. Contrast injection was performed. Exam performed in department. Left Ventricle Normal LV size. Left ventricular systolic function is normal. The estimated ejection fraction is 60 %. Stage 1 diastolic dysfunction. No regional wall motion abnormalities noted. Right Ventricle Normal RV size. Normal systolic function. Atria Normal left atrium. Normal right atrium. Mitral Valve Normal mitral valve. Tricuspid Valve Normal tricuspid valve. Mild (1+) tricuspid valve insufficiency. Pulmonary artery systolic pressure is 30 mmHg. Aortic Valve Normal aortic valve. Pulmonic Valve Normal pulmonic valve. Great Vessels Normal aortic root. Pericardium/Pleural No pericardial effusion. Medication 22 gauge I.V. with prn adaptor inserted into right arm. Diluted definity 4.0ml given slow IV push to enhance endocardial definition. MMode/2D Measurements & Calculations LVIDd: 4.4 cm IVSd: 0.92 cm Ao root diam: 3.5 cm LVIDs: 2.9 cm LVPWd: 0.79 cm RVDd: 3.2 cm FS: 32.9 % LAV(MOD-sp2): 28.0 ml EDV(MOD-sp4): 50.5 ml EDV(MOD-sp2): 56.8 ml ESV(MOD-sp4): 15.9 ml EF(MOD-sp2): 58.5 % EF(MOD-sp4): 68.6 % SV(MOD-sp4): 34.6 ml SV(MOD-sp2): 33.2 ml LA dimension(2D): 2.8 cm Time Measurements MV dec time: 0.40 sec Doppler Measurements & Calculations MV E max omid: 41.7 cm/sec Lat Peak E' Omid: 7.4 cm/sec Med Peak E' Omid: 7.0 cm/sec MV A max omid: 65.9 cm/sec E/E' lat: 5.6 E/E' med: 6.0 MV E/A: 0.63 Ao V2 max: 102.9 cm/sec LV V1 max: 69.6 cm/sec PA V2 max: 93.2 cm/sec Ao max P.2 mmHg LV V1 max P.9 mmHg TR max omid: 259.5 cm/sec TR max P.9 mmHg Interpretation Summary Normal LV size. Left ventricular systolic function is normal. The estimated ejection fraction is 60 %. Stage 1 diastolic dysfunction. Pulmonary artery systolic pressure is 30 mmHg. Ordering Physician: Joseph Yost Referring Physician: Trudy Ordaz Performed By: Sharon Bradford, PRINCESSCS, RVT
== END ==
PROVIDERS: PCP Internal Medicine; Referring Provider Internal Medicine Cardiovascular Disease; Visit Provider Internal Medicine Cardiovascular Disease
DX: I95.1 Orthostatic hypotension (principal)
CPT/HCPCS: 93306; Q9957; A4216; C8929

== ENCOUNTER 2021-07-01 09:47 | Outpatient (CLI) | payer MEDICAID, SELFPAY | END 2021-07-01 23:59 | disposition short-term general hospital (02) | LOC: LABSPEC 09:48 | PROVIDERS: PCP Internal Medicine; Visit Provider Physician Assistant | DX: U07.1 COVID-19 (principal) | CPT/HCPCS: 87635; U0003; U0005 ==

== ENCOUNTER → 2021-11-05 | Outpatient (CLI) | payer MEDICAID, SELFPAY ==
[2021-11-05 16:40] LABS: Absolute Lymphocyte Count 1.66 X10^3/uL (0.83-4.51); Absolute Neutrophil Count 4.6 X10^3/uL (2.0-7.7); Basophil# 0.02 X10^3/uL; Basophil% 0.3 % (0-1); Eosinophils% 4.3 % (0-5); Hemoglobin 10.9 g/dL (12.0-15.0); Lymphocyte # 1.66 X10^3/ul (0.83-4.51); Mean Corpuscular Hgb 30.1 pg (27.0-32.0); Mean Corpuscular Volume 91.2 fL (81-99); Mean Platelet Vol. 9.7 fl (6.2-12.0); Monocyte# 0.33 X10^3/uL; Monocyte% 4.8 % (0-10); NRBC Flagged by Analyzer 0 % (0-5); Neutrophil # 4.56 X10^3/uL (2.7-7.7); Neutrophil % 65.9 % (47-70); Platelet Count 237 K/mm3 (150-450); RBC Distribution Width CV 12.9 % (11.6-14.6); RBC Distribution Width SD 42.6 fl (35.1-43.9); Red Blood Count 3.62 M/mm3 (4.2-5.4); White Blood Count 6.9 K/mm3 (4.4-11.0)
[2021-11-05 17:00] LABS: Vitamin B12 500 pg/mL (211-911)
[2021-11-05 17:06] LABS: ALB/GLOB Ratio 0.7 RATIO (0.9-2.4); AST(SGOT) 21 U/L (15-37); Alanine Aminotransfer ALT/SGPT 41 U/L (13-56); Albumin, Serum 3.1 g/dL (3.2-5.0); Alkaline Phosphatase 307 U/L (45-117); Anion Gap 6 (5-15); BUN 38 mg/dL (7-18); Calcium,Total 8.6 mg/dL (8.5-10.1); Chloride 105 mmol/L (98-107); Creatinine, Serum 1.31 mg/dL (0.55-1.02); EST Glomerular Filtration Rate 44 mL/min (>60); Est Glom Filt Rate - Afr Amer 54 mL/min (>60); Globulin 4.2 g/dL (2.2-4.2); Glucose 326 mg/dL (74-106); Potassium 4.2 mmol/L (3.5-5.1); Protein, Total 7.3 g/dL (6.4-8.2); Sodium Level 138 mmol/L (136-145); Thyroid Stim Hormone (TSH) 2.07 uIU/mL (0.358-3.74)
== END | disposition home or self-care (01) ==
LOC: BIMLAB 15:31
PROVIDERS: PCP Internal Medicine; Referring Provider Internal Medicine; Visit Provider Internal Medicine
DX: E11.65 Type 2 diabetes mellitus with hyperglycemia (principal); E11.42 Type 2 diabetes mellitus with diabetic polyneuropathy; Z79.4 Long term (current) use of insulin; I10 Essential (primary) hypertension
CPT/HCPCS: 36415; 80053; 82043; 82570; 82607; 84439; 84443; 85025

== ENCOUNTER → 2022-02-04 | Outpatient (CLI) | payer MEDICAID, SELFPAY | END | disposition home or self-care (01) | LOC: BIMLAB 14:02 | PROVIDERS: PCP Internal Medicine; Visit Provider Nurse Practitioner Family | DX: E11.9 Type 2 diabetes mellitus without complications (principal); E78.5 Hyperlipidemia, unspecified; I10 Essential (primary) hypertension | CPT/HCPCS: 87077; 87086; 87088; 87186 ==

== ENCOUNTER 2022-11-24 13:52 | Emergency (ER) | payer MEDICAID, SELFPAY ==
[2022-11-24 13:53] VITALS: BP 151/90; PULSE 82; RESP 16; TEMP 36.6; O2SAT 98; BMI 29.9
--- NOTE | 2022-11-24 14:39 | EKG12_ITS ---
Test Reason : SYNCOPE Blood Pressure : / mmHG Vent. Rate : 077 BPM Atrial Rate : 077 BPM P-R Int : 168 ms QRS Dur : 074 ms QT Int : 426 ms P-R-T Axes : 022 -22 -11 degrees QTc Int : 482 ms Normal sinus rhythm Minimal voltage criteria for LVH, may be normal variant ( R in aVL ) Nonspecific ST and T wave abnormality Abnormal ECG Confirmed by EFRA TELLEZ, SHANIA ([id number]), technical writer and editor DIDIER TRIPLETT ([id number]) on 11/25/2022 9:37:34 AM Referred By: Confirmed By:SHANIA KRASU MD
--- NOTE | 2022-11-24 14:40 | EX.ED.DYSGE1 ---
HPI History of Present Illness Chief Complaint: Syncope Narrative Narrative: 57-year-old female presents with black stool that she has had for the last 2 months, and multiple episodes of syncope including twice today. The 2 episodes today were unwitnessed as she states her and son were at work. She has an appointment on with her primary care provider, but states she presents because the syncopal episodes are happening more frequently. She denies any prodromal symptoms such as chest pain or shortness of breath, but states when she stands, sometimes she winds up on the floor. She passed out twice today but denies any injuries from her falls and syncopal episodes. She denies any abdominal pain. She states she has had nausea and vomiting in the past. She has past medical history of diabetes but states that she does not take blood thinners except aspirin. PFSH [facility] Medical History Abdominal pain Abnormal thyroid function test ZOEY (acute kidney injury) Anemia Anxiety Aspiration pneumonia Back problem Bilateral tinnitus Breast lump Chronic ulcer of left foot with fat layer exposed CKD (chronic kidney disease), stage III Depression with anxiety Dermatitis Diabetic foot ulcer Eczema Essential hypertension Frequent headaches GERD (gastroesophageal reflux disease) H/O emotional problems Hyperglycemia Hyperglycemia due to type 2 diabetes mellitus Hyperlipidemia Hyperosmolar non-ketotic state in patient with type 2 diabetes mellitus Hypersomnolence Hypokalemia Hypomagnesemia Kidney stones Left facial pain Lightheadedness [place] toxicity Microalbuminuria Neuropathy OAB (overactive bladder) Obesity (BMI 30-39.9) Orthostatic hypotension Polycystic ovaries Postconcussion syndrome PVD (peripheral vascular disease) Seasonal allergies Secondary pulmonary arterial hypertension Seizures Sleep concern Suicide attempt Syncope TMJ arthritis Toxic encephalopathy Type 2 diabetes mellitus Type 2 diabetes mellitus without complications Ulcer of left lower extremity with fat layer exposed Venous insufficiency Vision problems Vitamin defciency Xerosis cutis Home Medications albuterol sulfate 90 mcg/actuation aerosol inhaler (ProAir HFA) 1 - 2 puff inhalation Q6H PRN shortness of breath or wheezing #8.5 grams 03/01/19 [Rx Last Taken Unknown] albuterol sulfate 2.5 mg/3 mL (0.083 %) solution for nebulization 2.5 mg (3 mL) inhalation Q4H PRN shortness of breath or wheezing #180 mL 05/03/19 [Rx Last Taken Unknown] clonazepam 0.5 mg tablet 0.5 mg PO TID anxiety 30 days #90 tabs 05/09/19 [History Last Taken 06/27/20] aspirin 81 mg chewable tablet 81 mg PO DAILY@0800 heart health 06/27/20 [History Last Taken 06/27/20] quetiapine 300 mg tablet 300 mg PO QHS insomnia 06/27/20 [History Last Taken 06/26/20] prazosin 2 mg capsule (Minipress) 2 mg PO QHS 10/18/20 [History Last Taken Unknown] cholecalciferol (vitamin D3) 50 mcg (2,000 unit) capsule 50 mcg PO DAILY vitamin #90 caps 11/11/20 [Rx Last Taken Unknown] sertraline 50 mg tablet 50 mg PO DAILY depression #30 tabs 12/09/20 [Rx Last Taken Unknown] blood sugar diagnostic (FreeStyle Lite Strips) #100 ea 12/11/20 [Rx Last Taken Unknown] blood-glucose meter (FreeStyle Lite Meter kit) #1 ea 12/11/20 [Rx Last Taken Unknown] exenatide microspheres 2 mg/0.85 mL subcutaneous auto-injector 2 mg (0.85 mL) subcut WE diabetes 3 months #11.05 mL 12/11/20 [Rx Last Taken Unknown] lancets 28 gauge (FreeStyle Lancets) #200 ea 12/11/20 [Rx Last Taken Unknown] pen needle, diabetic 31 gauge x 3/16 (Comfort EZ Pen [facility]) #100 ea 12/17/20 [Rx Last Taken Unknown] insulin detemir U-100 100 unit/mL (3 mL) subcutaneous pen (Levemir FlexTouch U-100 Insulin) 36 unit (0.36 mL) subcut QHS 3 months #32.4 mL 11/05/21 [Rx Last Taken Unknown] triamcinolone acetonide 0.1 % topical ointment 1 applic topical BID PRN rash #453.6 grams 11/05/21 [Rx Last Taken Unknown] valacyclovir 500 mg tablet (Valtrex) 500 mg PO Q12H PRN HSV episodes #20 tabs 01/16/22 [Rx Last Taken Unknown] pantoprazole 40 mg tablet,delayed release 40 mg PO DAILY GERD #90 tabs 02/26/22 [Rx Last Taken Unknown] ibuprofen 800 mg tablet 800 mg PO Q8H PRN pain #90 tabs 03/23/22 [Rx Last Taken Unknown] oxybutynin chloride 5 mg tablet 5 mg PO TID bladder #90 tabs 05/25/22 [Rx Last Taken Unknown] insulin aspart U-100 100 unit/mL (3 mL) subcutaneous pen See Rx Instructions .Route .COMPLEX #45 mL 06/18/22 [Rx Last Taken Unknown] folic acid 1 mg tablet 1 mg PO DAILY@0800 supplement #90 tabs 08/21/22 [Rx Last Taken Unknown] losartan 25 mg tablet See Rx Instructions .Route .COMPLEX #30 tabs 10/15/22 [Rx Last Taken Unknown] fludrocortisone 0.1 mg tablet See Rx Instructions .Route .COMPLEX #30 tabs 11/09/22 [Rx Last Taken Unknown] gabapentin 100 mg capsule See Rx Instructions .Route .COMPLEX #120 caps 11/13/22 [Rx Last Taken Unknown] atorvastatin 40 mg tablet 40 mg PO QHS cholesterol #90 tabs 11/17/22 [Rx Last Taken Unknown] Allergy/AdvReac Type Severity Reaction Status Date / Time metformin Allergy Severe Nausea Verified 11/24/22 13:52 aspartame Allergy Swelling Verified 11/24/22 13:52 latex Allergy Unknown Verified 11/24/22 13:52 Penicillins Allergy Laryngospas Verified 11/24/22 13:52 ms Family History Unknown Patient was adopted Surgical History History of section History of cholecystectomy Social History Smoking Status: Never smoker alcohol intake: never substance use type: does not use what type of physical activity do you participate in: walking frequency: daily duration: 30-45 minutes/day ROS ROS ED ROS Narrative Constitutional: No fever, no chills. HEENT: No sore throat. No neck pain. No loss of vision. No rhinorrhea. Cardiovascular: No chest pain. No palpitations. No pedal edema. Respiratory: No cough, no shortness of breath. Abdominal: No abdominal pain. Remote nausea and vomiting, black stool x2 months. Genitourinary: No dysuria. No hematuria. Musculoskeletal: No myalgias. No arthralgias. Neurologic: No headaches. No dizziness. No lightheadedness. Multiple syncopal episodes, 2 today. Skin: No rash. No change in color. Psychiatric: No depression. No anxiety. EXAM Physical Exam Narrative Exam Narrative: Afebrile. Vital signs noted. HEENT: Normocephalic. Atraumatic. PERRL, EOMI. Neck soft and supple. No point tenderness or step off. Cardiovascular: Regular rate and rhythm. No murmurs, rubs, or gallops appreciated. Respiratory: No tachypnea. Lungs clear to auscultation bilaterally. Gastrointestinal: Abdomen soft, nontender, with normoactive bowel sounds. No rebound or guarding. Neurological: Awake. Alert. Oriented x3. Nonfocal, nonlateralizing. Skin: No rash. Normal color. No pallor. Musculoskeletal: No pedal edema. Full range of motion extremities. Const Vital Signs: 11/24/22 13:53 11/24/22 14:00 11/24/22 16:30 Temperature 97.8 F Temperature Source Temporal Pulse Rate 82 Pulse Rate [Lying] 79 Pulse Rate [Sitting (for 1 minute prior to obtaining)] 87 Pulse Rate [Standing (for 1 minute prior to obtaining)] 88 Respiratory Rate 16 Respiratory Effort Normal Non-Labored Respiratory Pattern Normal Blood Pressure 151/90 H Blood Pressure [Lying] 154/79 H Blood Pressure [Sitting (for 1 minute prior to obtaining)] 145/84 H Blood Pressure [Standing (for 1 minute prior to obtaining)] 138/81 H Blood Pressure Mean 110 Blood Pressure Mean [Lying] 104 Blood Pressure Mean [Sitting (for 1 minute prior to obtaining)] 104 Blood Pressure Mean [Standing (for 1 minute prior to obtaining)] 100 Pulse Ox 98 Oxygen Delivery Method Room Air MDM MDM MDM Narrative Medical decision making narrative: Regarding her reported black stool x2 months, concern would be for GI bleeding. I do feel that she should have her hemoglobin checked with a CBC to look for anemia requiring transfusions. I will also obtain CMP and lipase, mainly to look for signs of upper GI bleeding such as elevated BUN with normal creatinine. I do not feel coagulation studies are indicated as she is not on Coumadin or other blood thinners except for aspirin. Orthostatics will also be obtained to look for cause of vasovagal syncope because she states it is worse when she stands. Currently she is not tachycardic. I will also obtain an EKG and a troponin with EKG to look for dysrhythmia. EKG was interpreted by myself which shows normal sinus rhythm at 77 bpm without ectopy or acute ST changes. No STEMI. I reviewed the patient's initial laboratory work which has returned and she is not anemic she has a normal hemoglobin of 12.4, normal white count 9.9. Her remaining labs were hemolyzed. Patient did not want a redraw. She states that she would like to go home. Since her work-up is incomplete, I do feel that she has to sign out AGAINST MEDICAL ADVICE. I feel she has the capacity to make this decision and states that she has a follow-up appointment with her primary care provider later on this week. She was informed of the risk of permanent disability, and acknowledges an understanding. She signed out AGAINST MEDICAL ADVICE. She was told that she could return at any time. Patient is in stable condition. History & Record Review Additional record(s) reviewed:: Prior ED visit and Prior labs Lab Data Attestation: I reviewed the patient's lab results. Labs: Laboratory Results - last 24 hr 11/24/22 11/24/22 15:35 15:35 WBC 9.9 RBC 4.30 Hgb 12.4 Hct 37.1 MCV 86.3 MCH 28.8 MCHC 33.4 RDW Std Deviation 41.1 RDW Coeff of [place] 13.2 Plt Count 333 MPV 9.2 Immature Gran % (Auto) 0.600 Neut % (Auto) 75.4 H Lymph % (Auto) 17.8 L [place] % (Auto) 4.7 Eos % (Auto) 1.0 Baso % (Auto) 0.5 Absolute Neuts (auto) 7.5 Absolute Lymphs (auto) 1.77 Nucleated RBC % 0 Sodium Cancelled Potassium Cancelled Chloride Cancelled Carbon Dioxide Cancelled Anion Gap Cancelled BUN Cancelled Creatinine Cancelled Estim Creat Clear Calc Cancelled Est GFR (MDRD) Af Amer Cancelled Est GFR (MDRD) Non-Af Cancelled BUN/Creatinine Ratio Cancelled Glucose Cancelled Calcium Cancelled Total Bilirubin Cancelled AST Cancelled ALT Cancelled Alkaline Phosphatase Cancelled Troponin I High Sens Cancelled Total Protein Cancelled Albumin Cancelled Globulin Cancelled Albumin/Globulin Ratio Cancelled Lipase Cancelled Discharge Plan Triage Chief Complaint: Syncope ED Provider: Benjamin Patrick Dx/Rx/DC Orders Clinical Impression: Syncope, Black stools, Left against medical advice Instructions: ED Fainting, Uncertain Cause Prescriptions: No Action clonazepam 0.5 mg tablet 0.5 mg PO TID 30 Days Qty: 90 albuterol sulfate 2.5 mg /3 mL (0.083 %) solution for nebulization 2.5 mg INHALATION Q4H PRN (Reason: shortness of breath or wheezing) Qty: 180 3RF prazosin [Minipress] 2 mg capsule 2 mg PO QHS exenatide microspheres 2 mg/0.85 mL auto-injector 2 mg SC WE 90 Days Qty: 11.05 2RF (DME) FreeStyle Lite Strips Strip See Rx Instructions .MEDSUPPLY Qty: 100 3RF Rx Instructions: check blood glucose 3x daily for type 2 DM (DME) blood-glucose meter [FreeStyle Lite Meter] Kit See Rx Instructions .MEDSUPPLY Qty: 1 0RF Rx Instructions: As directed, check blood glucose 3x daily for type 2 DM (DME) lancets [FreeStyle Lancets] 28 gauge misc See Rx Instructions .MEDSUPPLY Qty: 200 3RF Rx Instructions: check blood glucose 3x daily for type 2 DM Levemir FlexTouch U100 Insulin 100 unit/mL (3 mL) insulin pen 36 unit subcut QHS 90 Days Qty: 32.4 3RF triamcinolone acetonide 0.1 % ointment 1 applic topical BID PRN (Reason: rash) Qty: 453.6 1RF pantoprazole 40 mg tablet,delayed release (DR/EC) 40 mg PO DAILY Qty: 90 1RF aspirin 81 MG tablet,chewable 81 mg PO DAILY@0800 quetiapine 300 MG tablet 300 mg PO QHS albuterol sulfate [ProAir HFA] 90 mcg/actuation HFA aerosol inhaler 1 - 2 puff INHALATION Q6H PRN (Reason: shortness of breath or wheezing) Qty: 8.5 1RF cholecalciferol (vitamin D3) 50 mcg (2,000 unit) capsule 50 mcg PO DAILY Qty: 90 3RF sertraline 50 mg tablet 50 mg PO DAILY Qty: 30 0RF (DME) pen needle, diabetic [Comfort EZ Pen [facility]] 31 gauge x 3/16 needle See Rx Instructions .ROUTE .MEDSUPPLY Qty: 100 1RF Rx Instructions: uSE TO INJECT INSULIN 4 TIMES DAILY UNDER THE SKIN DX DIABETES E11.9 valacyclovir [Valtrex] 500 mg tablet 500 mg PO Q12H PRN (Reason: HSV episodes) Qty: 20 1RF Rx Instructions: take 1 tab q12h x 3 days for herpes episode ibuprofen 800 mg tablet 800 mg PO Q8H PRN (Reason: pain) Qty: 90 0RF oxybutynin chloride 5 mg tablet 5 mg PO TID Qty: 90 1RF Rx Instructions: TAKE 1 TABLET BY MOUTH THREE TIMES A DAY insulin aspart U-100 100 unit/mL (3 mL) insulin pen See Rx Instructions .ROUTE .COMPLEX Qty: 45 2RF Dose Instruction: INJECT 17 UNITS SUBCUTANEOUSLY THREE TIMES DAILY DIRECTED Rx Instructions: INJECT 17 UNITS SUBCUTANEOUSLY THREE TIMES DAILY DIRECTED folic acid 1 mg tablet 1 mg PO DAILY@0800 Qty: 90 1RF losartan 25 mg tablet See Rx Instructions .ROUTE .COMPLEX Qty: 30 1RF Dose Instruction: TAKE 1 TABLET BY MOUTH ONCE DAILY Rx Instructions: TAKE 1 TABLET BY MOUTH ONCE DAILY fludrocortisone 0.1 mg tablet See Rx Instructions .ROUTE .COMPLEX Qty: 30 12RF Dose Instruction: TAKE 1 TABLET BY MOUTH DAILY at 8 am. Rx Instructions: TAKE 1 TABLET BY MOUTH DAILY at 8 am. gabapentin 100 mg capsule See Rx Instructions .ROUTE .COMPLEX Qty: 120 2RF Dose Instruction: TAKE 1 CAPSULE BY MOUTH IN THE MORNING and 2 CAPSULES AT BEDTIME for nerve pain Rx Instructions: TAKE 1 CAPSULE BY MOUTH IN THE MORNING and 2 CAPSULES AT BEDTIME for nerve pain atorvastatin 40 mg tablet 40 mg PO QHS Qty: 90 3RF Primary Care Provider: Trudy Ordaz Referrals: Trudy Ordaz MD [Primary Care Provider] - [facility] appointment Disposition Disposition: Against Medical Advice
[2022-11-24] MEDS: 0.9% Normal Saline 1,000 ML 1000 ML IV (15:39)
[2022-11-24 15:56] LABS: Absolute Lymphocyte Count 1.77 X10^3/uL (0.83-4.51); Absolute Neutrophil Count 7.5 X10^3/uL (2.0-7.7); Basophil# 0.05 X10^3/uL; Basophil% 0.5 % (0-1); Hematocrit 37.1 % (37-47); Hemoglobin 12.4 g/dL (12.0-15.0); Lymphocyte # 1.77 X10^3/ul (0.83-4.51); Lymphocyte % 17.8 % (19-41); Mean Corp Hgb Conc 33.4 g/dL (32-36); Mean Corpuscular Hgb 28.8 pg (27.0-32.0); Mean Corpuscular Volume 86.3 fL (81-99); Mean Platelet Vol. 9.2 fl (6.2-12.0); Monocyte# 0.47 X10^3/uL; Monocyte% 4.7 % (0-10); NRBC Flagged by Analyzer 0 % (0-5); Neutrophil # 7.49 X10^3/uL (2.7-7.7); Neutrophil % 75.4 % (47-70); Platelet Count 333 K/mm3 (150-450); RBC Distribution Width CV 13.2 % (11.6-14.6); RBC Distribution Width SD 41.1 fl (35.1-43.9); White Blood Count 9.9 K/mm3 (4.4-11.0)
[2022-11-24 16:30] VITALS: BP 138/81; BP 145/84; BP 154/79; PULSE 79; PULSE 87; PULSE 88
== END 2022-11-24 17:35 | disposition left against medical advice (07) ==
PROVIDERS: Emergency Provider Emergency Medicine; PCP Internal Medicine; Visit Provider Emergency Medicine
DX: R55 Syncope and collapse (principal); E11.22 Type 2 diabetes mellitus with diabetic chronic kidney disease; E11.40 Type 2 diabetes mellitus with diabetic neuropathy, unspecified; Z79.4 Long term (current) use of insulin; N18.30 Chronic kidney disease, stage 3 unspecified; I12.9 Hypertensive chronic kidney disease with stage 1 through stage 4 chronic kidney disease, or unspecified chronic kidney disease; Z53.29 Procedure and treatment not carried out because of patient's decision for other reasons; E78.5 Hyperlipidemia, unspecified; R19.5 Other fecal abnormalities; Z79.899 Other long term (current) drug therapy; Z79.82 Long term (current) use of aspirin; F41.8 Other specified anxiety disorders; K21.9 Gastro-esophageal reflux disease without esophagitis; Z79.1 Long term (current) use of non-steroidal anti-inflammatories (NSAID); Z90.49 Acquired absence of other specified parts of digestive tract
CPT/HCPCS: 84484; 80053; 83690; 85025; 93005; 99285; J7030

== ENCOUNTER → 2022-11-26 | Outpatient (CLI) | payer MEDICAID, SELFPAY ==
[2022-11-26 16:58] LABS: Hematocrit 37.5 % (37-47); Hemoglobin 12.3 g/dL (12.0-15.0); Mean Corp Hgb Conc 32.8 g/dL (32-36); Mean Corpuscular Hgb 28.9 pg (27.0-32.0); Mean Platelet Vol. 9.7 fl (6.2-12.0); Platelet Count 387 K/mm3 (150-450); RBC Distribution Width CV 13.3 % (11.6-14.6); RBC Distribution Width SD 41.8 fl (35.1-43.9); Red Blood Count 4.26 M/mm3 (4.2-5.4); White Blood Count 10.3 K/mm3 (4.4-11.0)
[2022-11-26 17:38] LABS: Hemoglobin A1c 6.1 % (3.8-5.6)
[2022-11-26 18:20] LABS: ALB/GLOB Ratio 0.7 RATIO (0.9-2.4); AST(SGOT) 21 U/L (15-37); Alanine Aminotransfer ALT/SGPT 28 U/L (13-56); Albumin, Serum 3.4 g/dL (3.2-5.0); Alkaline Phosphatase 215 U/L (45-117); Anion Gap 13 (5-15); BUN 25 mg/dL (7-18); BUN/Creat Ratio 18.5 RATIO (10-20); Calcium,Total 8.8 mg/dL (8.5-10.1); Chloride 103 mmol/L (98-107); Creatinine, Serum 1.35 mg/dL (0.55-1.02); EST Glomerular Filtration Rate 43 mL/min (>60); Est Glom Filt Rate - Afr Amer 52 mL/min (>60); Globulin 4.7 g/dL (2.2-4.2); Glucose 144 mg/dL (74-106); Potassium 2.7 mmol/L (3.5-5.1); Protein, Total 8.1 g/dL (6.4-8.2); Sodium Level 140 mmol/L (136-145); Thyroid Stim Hormone (TSH) 1.02 uIU/mL (0.358-3.74)
== END | disposition home or self-care (01) ==
LOC: BIMLAB 15:49
PROVIDERS: PCP Internal Medicine; Visit Provider Nurse Practitioner Family
DX: R55 Syncope and collapse (principal); E11.9 Type 2 diabetes mellitus without complications; K92.1 Melena
CPT/HCPCS: 36415; 80053; 83036; 84443; 85027

== ENCOUNTER → 2022-12-02 | Outpatient (CLI) | payer MEDICAID, SELFPAY | END | disposition home or self-care (01) | LOC: LABSPEC 15:06 | PROVIDERS: PCP Internal Medicine; Referring Provider Nurse Practitioner Family; Visit Provider Nurse Practitioner Family | DX: K92.1 Melena (principal) | CPT/HCPCS: 82274 ==

== ENCOUNTER → 2023-06-18 | Outpatient (CLI) | payer MEDICAID, SELFPAY ==
[2023-06-18 17:02] LABS: Absolute Lymphocyte Count 1.62 X10^3/uL (0.83-4.51); Absolute Neutrophil Count 4.8 X10^3/uL (2.0-7.7); Basophil# 0.02 X10^3/uL; Basophil% 0.3 % (0-1); Eosinophil# 0.24 X10^3/uL; Eosinophils% 3.4 % (0-5); Hematocrit 31.1 % (37-47); Hemoglobin 9.9 g/dL (12.0-15.0); Lymphocyte # 1.62 X10^3/ul (0.83-4.51); Lymphocyte % 23.1 % (19-41); Mean Corp Hgb Conc 31.8 g/dL (32-36); Mean Corpuscular Hgb 30.1 pg (27.0-32.0); Mean Corpuscular Volume 94.5 fL (81-99); Mean Platelet Vol. 9.7 fl (6.2-12.0); Monocyte# 0.35 X10^3/uL; NRBC Flagged by Analyzer 0 % (0-5); Neutrophil # 4.75 X10^3/uL (2.7-7.7); Neutrophil % 67.8 % (47-70); Platelet Count 183 K/mm3 (150-450); RBC Distribution Width CV 14.1 % (11.6-14.6); RBC Distribution Width SD 47.5 fl (35.1-43.9); Red Blood Count 3.29 M/mm3 (4.2-5.4)
[2023-06-18 17:17] LABS: ALB/GLOB Ratio 0.8 RATIO (0.9-2.4); AST(SGOT) 11 U/L (15-37); Alanine Aminotransfer ALT/SGPT 11 U/L (13-56); Albumin, Serum 2.8 g/dL (3.2-5.0); Alkaline Phosphatase 247 U/L (45-117); Anion Gap 3 (5-15); BUN 21 mg/dL (7-18); BUN/Creat Ratio 21.6 RATIO (10-20); Calcium,Total 8.7 mg/dL (8.5-10.1); Chloride 110 mmol/L (98-107); Cholesterol 85 mg/dL (200); Creatinine, Serum 0.97 mg/dL (0.55-1.02); EST Glomerular Filtration Rate 62 mL/min (>60); Est Glom Filt Rate - Afr Amer 75 mL/min (>60); Globulin 3.7 g/dL (2.2-4.2); Glucose 118 mg/dL (74-106); High Density Lipoprotein 38 mg/dL; Potassium 4.1 mmol/L (3.5-5.1); Protein, Total 6.5 g/dL (6.4-8.2); Sodium Level 142 mmol/L (136-145); Triglycerides 119 mg/dL; Very Low Density Lipoprotein 24 mg/dL (5-40)
== END | disposition home or self-care (01) ==
LOC: BIMLAB 15:10
PROVIDERS: PCP Internal Medicine; Referring Provider Physician Assistant; Visit Provider Physician Assistant
DX: N18.30 Chronic kidney disease, stage 3 unspecified (principal); E87.6 Hypokalemia; E78.5 Hyperlipidemia, unspecified
CPT/HCPCS: 36415; 80053; 80061; 85025

== ENCOUNTER 2023-07-05 17:00 | Outpatient (RCR) | payer MEDICAID, SELFPAY ==
--- NOTE | 2023-06-28 17:00 | HP.PTEVAL ---
Patient's Visit Information Visit Information Visit Information: TEAGAN SON is a 57 year old F referred to Physical Therapy by JEN Tang with a diagnosis of WEAKNESS ,PAIN IN RIGHT HIP. Date of Evaluation: 06/28/23 Physical Therapist: Jorge Luis Nam, PT, Cert MDT, OCS Visit Plan Frequency: 2x /Week Duration: 4 Weeks Plan: S/P ORIF HIP Mar LATEX ALLERGEY PT INTERVETIONS AROM HIP,STRENGTHEING QUADS/HAMS/HIP.GAIT/BALNCE TRAINING ,NEUROMUSCULAR RE-ED ,FUNCTIONAL STRENGTHENING AND ENDURANCE PROGRAM Subjective Subjective: This 57 y/o female presents to physical therapy with hip pain. Patient was at Rehab at [place] for other comorbities but fell and had fracture hip thus s/p ORIF Apr 17 2023 at [facility] . Patient then return to [facility] with WBAT. Patient d/c to home Jun 09 with FWW and WBAT. Patient conts with walking with fww . Patient unable to progress to cane due to weakness. Patient has Duplex with 13steps with rails with difficulty ,patient has tub/shower set up with seat. Patient needs to assist with ADLS with dressing ,shoes ,bathing. Spouse does cooking and cleaning. Patient has difficulty with ADLS and housework tasks with weakness and endurance. Patient has difficulty sleeping. Patient denies paresthesia/tingling. Patient comorbities as stated below impacts patient progression. Patient has no F/U with orthopedic DR. Patient condition affects QOL. Patient goal walk normal. No medication for pain SOCAIL: V Pain Right Hip: Pain Intensity (Out of 10): 7 Pain Intensity Range: 10 Objective Objective: POSTURE: mild forward posture GAIT: ambulated with fww reciprocal pattern mild forward posture NEURO: denies paresthesia/tingling BALANCE: fair+ with fww MMT: quads/hams 4/5 ,(peak force ) hip flexion 12.2 ,hip abd 0 AROM HIP: flexion 80 degrees ,hip abd 35 degrees ,knee flexion 115 degrees STAIRS : One step at a time with rails Balance/Special Test Scores Lower Extremity Functional Score: 19 Goals Goal 1:: Patient to be I with HEP for strength hip Goal Time Frame: 4-6 Weeks Goal 2:: Patient to improve gait pattern with/without cane community distances Goal Time Frame: 4-6 Weeks Goal 3:: Patient to demonstrate 50% improvement with improved gait and function with less pain Goal Time Frame: 4-6 Weeks Goal 4:: Patient to increase strength peak force hip flexion/abduction by 10 # to improve gait Goal Time Frame: 4-6 Weeks Goal 5:: Patient to improve LFES score by 5-10 points to improve QOL and gait Goal Time Frame: 4-6 Weeks Goal 6:: Patient to improve hip flexion by 10 degrees > TO IMPROVE STAIRS Goal Time Frame: 4-6 Weeks Rehabilitation Potential Physical Therapy Diagnosis: This patient had ORIF right hip Apr 17 with pain ,decrease gait, balance ,weakness especially hip ,decrease endurance thus benefit from skilled PT Rehabilitation Potential: Good Anticipated Interventions Patient/Client Instruction: Educate patient on: Condition and Plan of Care For the Purpose of:: To decrease pain, To increase ROM, To improve muscle performance and motor function, To improve ability to perform ADL's, To increase tolerance to activity/condition/position, To improve ability of physical actions for home/community/work/leisure, To improve health of tissue, To decrease soft tissue restriction, To increase flexibility/ROM, To improve endurance and To improve tolerance to ADL's Therapeutic Exercise to Include: Strength training, Endurance training, Balance training, Postural training, Flexibilty training and Active ROM Comment: HIP For the Purpose of:: To decrease pain, To increase ROM, To improve muscle performance and motor function, To improve ability to perform ADL's, To increase tolerance to activity/condition/position, To improve ability of physical actions for home/community/work/leisure, To improve gait and locomotor functions, To improve health of tissue, To decrease soft tissue restriction, To increase flexibility/ROM, To improve endurance, To improve balance and To improve tolerance to ADL's Text: Thank you for the opportunity to evaluate your patient. For Medicare and Medicare HMO plans, please review the plan of care and approve it. It will need to be FAXED BACK to us at [phone] for Medicare purposes. For Medicare only, by signing this I certify the plan of care. Please let me know if there are questions or concerns regarding this plan of care. Physician Signature: Date:
--- NOTE | 2023-10-13 10:59 | HP.PT.NRP ---
Patient Information Patient Information: TEAGAN SON was seen in my office for initial evaluation on 06/28/23. The following Plan of Care was established for this patient: POC Established Initial Frequency: 2x /Week Initial Duration: 4 Weeks Anticipated Interventions Patient/Client Instruction: Educate patient on: Condition and Plan of Care For the Purpose of:: To decrease pain, To increase ROM, To improve muscle performance and motor function, To improve ability to perform ADL's, To increase tolerance to activity/condition/position, To improve ability of physical actions for home/community/work/leisure, To improve health of tissue, To decrease soft tissue restriction, To increase flexibility/ROM, To improve endurance and To improve tolerance to ADL's Therapeutic Exercise to Include: Strength training, Endurance training, Balance training, Postural training, Flexibilty training and Active ROM For the Purpose of:: To decrease pain, To increase ROM, To improve muscle performance and motor function, To improve ability to perform ADL's, To increase tolerance to activity/condition/position, To improve ability of physical actions for home/community/work/leisure, To improve gait and locomotor functions, To improve health of tissue, To decrease soft tissue restriction, To increase flexibility/ROM, To improve endurance, To improve balance and To improve tolerance to ADL's Last Seen Last Seen: This patient was last seen in our office . Pertinent comments regarding their Physical therapy will appear below: Patient was seen for PT for right hip pain and weakness thus d/c after 3 visits At this point I will be discontinuing this patient from physical therapy. I would be happy to see this patient again in the future if found appropriate by the physician. Thank you! Jorge Luis Nam, PT, Cert MDT, OCS Balance/Gait/Functional tests Balance/Special Test Scores Lower Extremity Functional Score: 19
== END 2023-07-05 19:00 | disposition home or self-care (01) ==
LOC: PT 17:00
PROVIDERS: PCP Internal Medicine; Visit Provider Physician Assistant
DX: M25.551 Pain in right hip (principal); R53.1 Weakness
CPT/HCPCS: 97110; 97162

== ENCOUNTER 2023-07-29 17:38 | Observation (INO) | payer MEDICAID, SELFPAY ==
[2023-07-29] VITALS (7 sets, daily range): BP systolic 170–184; BP diastolic 81–105; PULSE 93–105; RESP 16–22; TEMP 36.4; O2SAT 79–99; BMI 30.2
--- NOTE | 2023-07-29 17:53 | EX.ED.DYSGE1 ---
HPI History of Present Illness Chief Complaint: Nausea/Vomiting/Diarrhea Informant: patient Narrative Narrative: Patient presents by EMS for nausea vomiting diarrhea. Of note, her story changes between the nurse and myself. To the nurse she just stated she has had nausea vomiting and an episode of diarrhea yesterday and today. No blood. But to me she states she has not been eating or drinking for 3 weeks. She has not been doing this just because she did not feel like it. But she was not vomiting then. She is also complaining that she is falling all the time for the last year. She falls about 10 times a week. She has hit her head multiple times. She does not know what causes this. She also has a little bit of a cough but is not short of breath. Does not think she has had a fever. She told me once that her urine is increased amount and other times is decreased amount. [facility] Medical History Abnormal thyroid function test ZOEY (acute kidney injury) Anemia Anxiety Aspiration pneumonia Back problem Bilateral tinnitus Chronic ulcer of left foot with fat layer exposed CKD (chronic kidney disease), stage III Depression with anxiety Dermatitis Diabetic foot ulcer Eczema Essential hypertension Frequent headaches GERD (gastroesophageal reflux disease) H/O emotional problems Hyperglycemia due to type 2 diabetes mellitus Hyperlipidemia Hyperosmolar non-ketotic state in patient with type 2 diabetes mellitus Hypersomnolence Hypokalemia Hypomagnesemia Kidney stones Left facial pain Lightheadedness Mosses toxicity Microalbuminuria Neuropathy OAB (overactive bladder) Obesity (BMI 30-39.9) Orthostatic hypotension Polycystic ovaries Postconcussion syndrome PVD (peripheral vascular disease) Seasonal allergies Secondary pulmonary arterial hypertension Seizures Sleep concern Suicide attempt Syncope TMJ arthritis Toxic encephalopathy Type 2 diabetes mellitus Type 2 diabetes mellitus without complications Ulcer of left lower extremity with fat layer exposed Venous insufficiency Vision problems Vitamin defciency Xerosis cutis Home Medications albuterol sulfate 2.5 mg/3 mL (0.083 %) solution for nebulization 2.5 mg (3 mL) inhalation Q4H PRN shortness of breath or wheezing #180 mL 05/03/19 [Rx Last Taken Unknown] ibuprofen 800 mg tablet 800 mg PO Q8H PRN pain #90 tabs 03/23/22 [Rx Last Taken Unknown] fludrocortisone 0.1 mg tablet See Rx Instructions .Route .COMPLEX #30 tabs 11/09/22 [Rx Last Taken Unknown] benzonatate 100 mg capsule 100 mg PO TID #30 caps 06/18/23 [Rx Last Taken Unknown] benztropine 1 mg tablet 1 mg PO TID 06/18/23 [History Last Taken Unknown] clotrimazole 1 % topical cream 1 applic topical BID 06/18/23 [History Last Taken Unknown] gabapentin 100 mg capsule See Rx Instructions .Route .COMPLEX 06/18/23 [History Last Taken Unknown] lidocaine 5 % topical patch 1 patch topical QHS 06/18/23 [History Last Taken Unknown] lurasidone 120 mg tablet 120 mg PO DAILY 06/18/23 [History Last Taken Unknown] ondansetron HCl 4 mg tablet 4 mg PO Q6H PRN nausea and vomiting 06/18/23 [History Last Taken Unknown] potassium chloride 20 mEq tablet,extended release 20 meq PO DAILY 06/18/23 [History Last Taken Unknown] prazosin 1 mg capsule 3 mg PO QHS 06/18/23 [History Last Taken Unknown] trazodone 50 mg tablet 50 mg PO QHS 06/18/23 [History Last Taken Unknown] walker #1 ea 06/27/23 [Rx Last Taken Unknown] compress.stocking,knee,reg,lrg #2 ea 07/01/23 [Rx Last Taken Unknown] blood sugar diagnostic (FreeStyle Lite Strips) #100 ea 07/09/23 [Rx Last Taken Unknown] blood-glucose meter (FreeStyle Lite Meter kit) #1 ea 07/09/23 [Rx Last Taken Unknown] lancets 28 gauge (FreeStyle Lancets) #200 ea 07/09/23 [Rx Last Taken Unknown] pen needle, diabetic 31 gauge x 3/16 (Comfort EZ Pen Centre) #100 ea 07/09/23 [Rx Last Taken Unknown] albuterol sulfate 90 mcg/actuation aerosol inhaler (ProAir HFA) 1 - 2 puff inhalation Q6H PRN shortness of breath or wheezing #8.5 grams 07/20/23 [Rx Last Taken Unknown] atorvastatin 40 mg tablet 40 mg PO QHS cholesterol #90 tabs 07/20/23 [Rx Last Taken Unknown] folic acid 1 mg tablet 1 mg PO DAILY@0800 supplement #90 tabs 07/20/23 [Rx Last Taken Unknown] losartan 25 mg tablet 25 mg PO DAILY 90 days #90 tabs 07/20/23 [Rx Last Taken Unknown] oxybutynin chloride 10 mg tablet,extended release 24 hr 10 mg PO DAILY #90 tabs 07/20/23 [Rx Last Taken Unknown] pantoprazole 40 mg tablet,delayed release 40 mg PO DAILY GERD #90 tabs 07/20/23 [Rx Last Taken Unknown] sertraline 50 mg tablet 50 mg PO DAILY depression #90 tabs 07/20/23 [Rx Last Taken Unknown] coenzyme Q10 100 mg capsule (Co Q-10) 200 mg PO DAILY 07/29/23 [History Last Taken Unknown] Allergy/AdvReac Type Severity Reaction Status Date / Time aspartame Allergy Swelling Verified 07/29/23 17:39 latex Allergy Unknown Verified 07/29/23 17:39 Penicillins Allergy Laryngospas Verified 07/29/23 17:39 ms Family History Unknown Patient was adopted Surgical History History of section History of cholecystectomy History of hip surgery Social History Smoking Status: Never smoker alcohol intake: never substance use type: does not use what type of physical activity do you participate in: walking frequency: daily duration: 30-45 minutes/day ROS ROS ED Constitutional Constitutional ED: Denies chills or fever(s) Eyes Eyes: Denies change in vision ENT ENT ED: Denies rhinorrhea or sore throat Cardiovascular Cardiovascular: Denies chest pain, palpitations or racing heartbeat Respiratory/Chest Respiratory/Chest: Reports cough; Denies dyspnea Gastrointestinal Gastrointestinal: Reports diarrhea, nausea and vomiting; Denies abdominal pain Genitourinary Genitourinary ED: Denies dysuria or hematuria Musculoskeletal Musculoskeletal: Denies myalgias Integumentary Reports other Details: Slight abrasion to right arm from a fall. But no pain. Neurologic Neurologic: Denies headache(s) or paresthesias Psychiatric Psychiatric: Reports anxiety Endocrine Endocrinology: Denies polydipsia or polyuria Hematologic/Lymphatic Hematologic/Lymphatic: Denies easy bleeding or easy bruising Allergic/Immunologic Allergic/Immunologic ED: Denies urticaria EXAM Physical Exam Narrative Exam Narrative: CONSTITUTIONAL: Patient is nontoxic in appearance. The patient looks comfortable. Work of breathing looks normal. HEENT: No notable trauma. Mucous membranes do look quite dry.. No sinus tenderness. No exudate. EYES: No conjunctival injection. No icterus. NECK:No JVD. No stridor. CARDIOVASCULAR: Regular rate. Regular rhythm. No notable murmur. No JVD. RESPIRATORY: No respiratory distress. Breathing is unlabored. No wheezes. No rhonchi. No rales. No pain with a deep breath. No chest wall tenderness. GASTROINTESTINAL: Not distended. Bowel sounds are normal. No tenderness. No guarding. No rebound. No palpable mass. No bruit is heard. GENITOURINARY: No tenderness over the bladder. No CVA tenderness. MUSCULOSKELETAL: Minimal abrasion right forearm but no tenderness. She had a right total hip back in March but no pain with motion and no complaints of pain there. NEUROLOGICAL: Patient is alert and appropriate. No focal deficit noted. SKIN: No noted rashes. No diaphoresis. PSYCHIATRIC: Patient is calm. Mood is appropriate. Const Vital Signs: 07/29/23 17:40 07/29/23 17:42 07/29/23 18:32 Temperature 97.5 F L 97.5 F L Temperature Source Temporal Temporal Pulse Rate 99 99 96 Respiratory Rate 16 16 16 Blood Pressure 184/100 H 184/100 H 171/93 H Blood Pressure Mean 128 128 119 Pulse Ox 97 97 79 Oxygen Delivery Method Room Air Room Air Room Air Oxygen Flow Rate (L/min) 07/29/23 18:36 Temperature Temperature Source Pulse Rate 93 Respiratory Rate 21 H Blood Pressure 171/93 H Blood Pressure Mean 119 Pulse Ox 99 Oxygen Delivery Method Nasal Cannula Oxygen Flow Rate (L/min) 4 MDM MDM MDM Narrative Medical decision making narrative: My independent interpretation of this patient's single view chest x-ray does show cardiomegaly and what looks more like CHF with some effusions and fluid in the major fissure. Final reading is similar. Patient's CBC is overall normal. Patient's electrolytes show mildly low potassium. BUN and creatinine is close to her baseline though. Liver function test show no marked abnormalities. There is some mild elevation in the alkaline phosphatase but she is not having pain. Lipase is normal. Her BNP is high at 1235. With her x-ray findings and BNP we did give her Lasix. Patient started with a normal saturation but she had desaturated in the 80s and the nurse even saw a short period in the upper 70s. This had a good waveform. Patient was placed on 3 and then 4 L and is much better now. I am wondering if getting intermittent hypoxia is causing this patient to pass out or fall at times. We then did get back urine. The urine shows sign of infection. This may be the source of some of her nausea or vomiting. I will talk to her about antibiotics for treatment as she has some allergies to penicillins. Patient's viral studies are negative. I did discuss case with hospitalist. With the patient's documented hypoxia, new chest x-ray finding, new BNP elevation I think she does need to come in, likely diuresis and may need repeat echo. Lab Data Attestation: I reviewed the patient's lab results. Labs: Laboratory Results - last 24 hr 07/29/23 07/29/23 18:20 19:40 WBC 8.5 RBC 4.44 Hgb 12.8 Hct 39.4 MCV 88.7 MCH 28.8 MCHC 32.5 RDW Std Deviation 45.6 H RDW Coeff of Emery 14.4 Plt Count 254 MPV 9.7 Immature Gran % (Auto) 0.400 Neut % (Auto) 69.7 Lymph % (Auto) 22.2 Waldo % (Auto) 5.8 Eos % (Auto) 1.5 Baso % (Auto) 0.4 Absolute Neuts (auto) 5.9 Absolute Lymphs (auto) 1.88 Nucleated RBC % 0 Sodium 144 Potassium 3.3 L Chloride 108 H Carbon Dioxide 30.0 Anion Gap 6 BUN 21 H Creatinine 1.04 H Estim Creat Clear Calc 59.60 Est GFR (MDRD) Af Amer 70 Est GFR (MDRD) Non-Af 58 L BUN/Creatinine Ratio 20.2 H Glucose 92 Calcium 8.4 L Total Bilirubin 0.70 AST 15 ALT 12 L Alkaline Phosphatase 215 H B-Natriuretic Peptide 1235.4 H Total Protein 6.2 L Albumin 2.5 L Globulin 3.7 Albumin/Globulin Ratio 0.7 L Lipase 17 Urine Color Yellow Urine Clarity Cloudy Urine pH 7.0 Ur Specific [place] 1.010 Urine Protein 500 H Urine Glucose (UA) Normal Urine Ketones 15 H Urine Occult Blood 50 H Urine Nitrite Positive H Urine Bilirubin Negative Urine Urobilinogen 1 H Ur Leukocyte Esterase 500 H Urine RBC 0 SEEN Urine WBC 50-100 SEEN Ur Squamous Epith Cells 0 SEEN Urine Bacteria 4+ Urine Mucus 0 SEEN Radiography Diagnostic Testing: Clinical Impression(s) from Imaging Studies Chest X-Ray 07/29/23 18:23 IMPRESSION: Bilateral edema or pneumonia and pleural effusions. Cardiac enlargement. Electronically Signed: Leodan Dyer MD at 19:06 EST , Management Discussion w/another healthcare provider: Hospitalist Discharge Plan Triage Chief Complaint: Nausea/Vomiting/Diarrhea ED Provider: Baljeet Melgar Dx/Rx/DC Orders Clinical Impression: Urinary tract infection, Congestive heart failure, Frequent falls, Hypoxia, Nausea & vomiting Prescriptions: No Action albuterol sulfate 2.5 mg /3 mL (0.083 %) solution for nebulization 2.5 mg INHALATION Q4H PRN (Reason: shortness of breath or wheezing) Qty: 180 3RF prazosin 1 mg capsule 3 mg PO QHS lidocaine 5 % adhesive patch,medicated 1 patch topical QHS Rx Instructions: leave on most painful area for up to 12 hrs benztropine 1 mg tablet 1 mg PO TID trazodone 50 mg tablet 50 mg PO QHS ondansetron HCl 4 mg tablet 4 mg PO Q6H PRN (Reason: nausea and vomiting) lurasidone 120 mg tablet 120 mg PO DAILY Rx Instructions: must administer with food (at least 350 calories) potassium chloride 20 mEq tablet extended release 20 meq PO DAILY gabapentin 100 mg capsule See Rx Instructions .ROUTE .COMPLEX Dose Instruction: TAKE 1 CAPSULE BY MOUTH IN THE MORNING and 2 CAPSULES AT BEDTIME for nerve pain Rx Instructions: TAKE 1 CAPSULE BY MOUTH IN THE MORNING AND AFTERNOON; and 2 CAPSULES AT BEDTIME for nerve pain clotrimazole 1 % cream 1 applic topical BID benzonatate 100 mg capsule 100 mg PO TID Qty: 30 0RF coenzyme Q10 [Co Q-10] 100 mg capsule 200 mg PO DAILY ibuprofen 800 mg tablet 800 mg PO Q8H PRN (Reason: pain) Qty: 90 0RF fludrocortisone 0.1 mg tablet See Rx Instructions .ROUTE .COMPLEX Qty: 30 12RF Dose Instruction: TAKE 1 TABLET BY MOUTH DAILY at 8 am. Rx Instructions: TAKE 1 TABLET BY MOUTH DAILY at 8 am. (DME) walker Misc See Rx Instructions .Route Qty: 1 0RF Rx Instructions: To be used during ambulation (DME) compress.stocking,knee,reg,lrg Misc See Rx Instructions .MEDSUPPLY Qty: 2 1RF Rx Instructions: wear daily for venous insufficiency 20-30 mmHg (DME) lancets [FreeStyle Lancets] 28 gauge misc See Rx Instructions .MEDSUPPLY Qty: 200 3RF Rx Instructions: check blood glucose 3x daily for type 2 DM (DME) pen needle, diabetic [Comfort EZ Pen Centre] 31 gauge x 3/16 needle See Rx Instructions .ROUTE .MEDSUPPLY Qty: 100 1RF Rx Instructions: uSE TO INJECT INSULIN 4 TIMES DAILY UNDER THE SKIN DX DIABETES E11.9 (DME) blood-glucose meter [FreeStyle Lite Meter] Kit See Rx Instructions .MEDSUPPLY Qty: 1 0RF Rx Instructions: As directed, check blood glucose 3x daily for type 2 DM (DME) FreeStyle Lite Strips Strip See Rx Instructions .MEDSUPPLY Qty: 100 3RF Rx Instructions: check blood glucose 3x daily for type 2 DM albuterol sulfate [ProAir HFA] 90 mcg/actuation HFA aerosol inhaler 1 - 2 puff INHALATION Q6H PRN (Reason: shortness of breath or wheezing) Qty: 8.5 1RF atorvastatin 40 mg tablet 40 mg PO QHS Qty: 90 1RF folic acid 1 mg tablet 1 mg PO DAILY@0800 Qty: 90 1RF losartan 25 mg tablet 25 mg PO DAILY 90 Days Qty: 90 1RF oxybutynin chloride 10 mg tablet extended release 24hr 10 mg PO DAILY Qty: 90 0RF pantoprazole 40 mg tablet,delayed release (DR/EC) 40 mg PO DAILY Qty: 90 1RF sertraline 50 mg tablet 50 mg PO DAILY Qty: 90 1RF Primary Care Provider: Trudy Ordaz Referrals: Trudy Ordaz MD [Primary Care Provider] - Disposition Disposition: Acute Care Hospital [facility]
[2023-07-29] MEDS: 0.9% Normal Saline (1000mL) 1,000 ML 1000 ML IV (18:21)
[2023-07-29] MEDS: Ondansetron 4 MG/2 ML Vial IV (18:21)
--- NOTE | 2023-07-29 18:23 | RAD_ITS ---
STUDY: X-RAY CHEST REASON FOR EXAM: Female, 57 years old. Cough TECHNIQUE: Single AP portable view of the chest. COMPARISON: June 27, 2020 FINDINGS: There are mid and lower lung airspace opacities. There are small pleural effusions. There is moderate cardiac enlargement. Normal mediastinum and rianna. Normal visualized pulmonary arteries. Normal visualized aortic arch and descending thoracic aorta. Normal visualized thoracic spine. Normal visualized ribs, clavicles, and shoulders. There is no demonstrated abnormality of the visualized soft tissue structures of the upper abdomen. RAD/Chest 1 View (Portable) IMPRESSION: Bilateral edema or pneumonia and pleural effusions. Cardiac enlargement. Electronically Signed: Leodan Dyer MD at 19:06 EST ,
[2023-07-29 18:32] LABS: Absolute Lymphocyte Count 1.88 X10^3/uL (0.83-4.51); Absolute Neutrophil Count 5.9 X10^3/uL (2.0-7.7); Basophil# 0.03 X10^3/uL; Basophil% 0.4 % (0-1); Eosinophil# 0.13 X10^3/uL; Eosinophils% 1.5 % (0-5); Hematocrit 39.4 % (37-47); Hemoglobin 12.8 g/dL (12.0-15.0); Lymphocyte # 1.88 X10^3/ul (0.83-4.51); Lymphocyte % 22.2 % (19-41); Mean Corp Hgb Conc 32.5 g/dL (32-36); Mean Corpuscular Hgb 28.8 pg (27.0-32.0); Mean Corpuscular Volume 88.7 fL (81-99); Mean Platelet Vol. 9.7 fl (6.2-12.0); Monocyte# 0.49 X10^3/uL; Monocyte% 5.8 % (0-10); NRBC Flagged by Analyzer 0 % (0-5); Neutrophil # 5.92 X10^3/uL (2.7-7.7); Neutrophil % 69.7 % (47-70); Platelet Count 254 K/mm3 (150-450); RBC Distribution Width CV 14.4 % (11.6-14.6); RBC Distribution Width SD 45.6 fl (35.1-43.9); Red Blood Count 4.44 M/mm3 (4.2-5.4); White Blood Count 8.5 K/mm3 (4.4-11.0)
[2023-07-29 18:48] LABS: ALB/GLOB Ratio 0.7 RATIO (0.9-2.4); AST(SGOT) 15 U/L (15-37); Alanine Aminotransfer ALT/SGPT 12 U/L (13-56); Albumin, Serum 2.5 g/dL (3.2-5.0); Alkaline Phosphatase 215 U/L (45-117); Anion Gap 6 (5-15); BUN 21 mg/dL (7-18); BUN/Creat Ratio 20.2 RATIO (10-20); Calcium,Total 8.4 mg/dL (8.5-10.1); Chloride 108 mmol/L (98-107); Creatinine, Serum 1.04 mg/dL (0.55-1.02); EST Glomerular Filtration Rate 58 mL/min (>60); Est Glom Filt Rate - Afr Amer 70 mL/min (>60); Globulin 3.7 g/dL (2.2-4.2); Glucose 92 mg/dL (74-106); Lipase 17 U/L (13-75); Potassium 3.3 mmol/L (3.5-5.1); Protein, Total 6.2 g/dL (6.4-8.2); Sodium Level 144 mmol/L (136-145)
[2023-07-29 19:20] LABS: BNP,B-Type NATRIURETIC PEPTIDE 1235.4 pg/mL (0-100)
[2023-07-29 19:45] LABS: Mucous, Urine 0 SEEN /hpf (<or=2+); Red Blood Cells-Urine 0 SEEN /hpf (0-5); Squamous Epithelial Cells - UA 0 SEEN /hpf (5-10)
--- NOTE | 2023-07-29 19:48 | CT_ITS ---
STUDY: CT BRAIN WITHOUT CONTRAST REASON FOR EXAM: Female, 57 years old. Trauma RADIATION DOSAGE (If Supplied By Facility): CTDIvol = ( 44.99 ) mGy, DLP = ( 779.24 ) mGycm TECHNIQUE: Transaxial CT imaging of the brain was performed without administration of intravenous contrast material. Individualized dose optimization techniques were used for this CT. COMPARISON: June 27, 2020. FINDINGS: Normal soft tissue structures. Normal calvarium. There is mild cerebral atrophy with widening of the extra-axial spaces and ventricular dilatation. There are areas of decreased attenuation within the white matter tracts of the supratentorial brain, consistent with microvascular disease changes. Normal basal ganglia and thalami. Normal brainstem. Normal cerebellum. There is no intracranial hemorrhage. There are no findings of an acute ischemic infarction. Normal visualized paranasal sinuses. CT/Brain/Head without Contrast IMPRESSION: Chronic involutional changes of the brain. Electronically Signed: Leodan Dyer MD at 20:34 EST ,
[2023-07-29 19:49] LABS: Color, Urine Yellow (Yellow); Glucose, Dipstick Normal (Normal); Ketone-Dipstick 15 mg/dl (Negative); Leukocyte Esterase-Dipstick 500 /ul (Negative); Nitrite-Dipstick Positive (Negative); Occult Blood-Urine 50 /ul (Negative); Protein-Dipstick 500 mg/dl (Negative); Urine Bilirubin Dipstick Negative (Negative); Urine Clarity Cloudy (Clear); Urine Urobilinogen 1 mg/dl (Normal)
--- NOTE | 2023-07-29 19:53 | PCM.HP.STD ---
HPI - General General Date of Admission: 07/29/23 Date of Service: 07/29/23 Chief Complaint: multiple complaints including shortness of breath, cough and leg swelling for 3 weeks HPI Narrative TEAGAN SON, is a 57 F came to ED for multiple complaints. She complains nausea vomiting and loose bowel movement for few days. She also said she has chronic cough for a long time but for last 3-week she is coughing up more but mainly is dry cough along with shortness of breath. Her shortness of breath is mainly exertional for 3 weeks but got worse and now even at rest for last 3 days. She is not on oxygen at home. She has history of smoking in the past about 40 years ago and considered that it was occasional smoking. Denies history of chronic lung disease. She also has leg swelling started about 3 weeks ago and saw PCP but was not given diuretic because of chronic kidney disease. Denies fever or chills or recent URI/COVID RSV or flu. Patient denies chest pain or pressure or tightness. She also felt her abdomen is more swollen than normal. She also complained that whenever she stands up or walks fast she feels dizzy lightheaded and passed out and fall but come back in about 3-second. She was told it is because of low blood pressure/hypotension. She was last admitted in June 2020 for syncopal episode and at that time profound orthostatic hypotension was found and was started on fludrocortisone and HCTZ was discontinued. In ED, patient's blood pressure was found high in the 180s, heart rate in 90s and hypoxia pulse ox 99% on room air currently on 4 L of oxygen. Chest x-ray also shows pulmonary congestion and patient was given furosemide 40 mg IV and further admitted. [facility] Medical History Abnormal thyroid function test ZOEY (acute kidney injury) Anemia Anxiety Aspiration pneumonia Back problem Bilateral tinnitus Chronic ulcer of left foot with fat layer exposed CKD (chronic kidney disease), stage III Depression with anxiety Dermatitis Diabetic foot ulcer Eczema Essential hypertension Frequent headaches GERD (gastroesophageal reflux disease) H/O emotional problems Hyperglycemia due to type 2 diabetes mellitus Hyperlipidemia Hyperosmolar non-ketotic state in patient with type 2 diabetes mellitus Hypersomnolence Hypokalemia Hypomagnesemia Kidney stones Left facial pain Lightheadedness [place] toxicity Microalbuminuria Neuropathy OAB (overactive bladder) Obesity (BMI 30-39.9) Orthostatic hypotension Polycystic ovaries Postconcussion syndrome PVD (peripheral vascular disease) Seasonal allergies Secondary pulmonary arterial hypertension Seizures Sleep concern Suicide attempt Syncope TMJ arthritis Toxic encephalopathy Type 2 diabetes mellitus Type 2 diabetes mellitus without complications Ulcer of left lower extremity with fat layer exposed Venous insufficiency Vision problems Vitamin defciency Xerosis cutis Home Medications albuterol sulfate 2.5 mg/3 mL (0.083 %) solution for nebulization 2.5 mg (3 mL) inhalation Q4H PRN shortness of breath or wheezing #180 mL 05/03/19 [Rx Last Taken Unknown] ibuprofen 800 mg tablet 800 mg PO Q8H PRN pain #90 tabs 03/23/22 [Rx Last Taken Unknown] fludrocortisone 0.1 mg tablet See Rx Instructions .Route .COMPLEX #30 tabs 11/09/22 [Rx Last Taken Unknown] benzonatate 100 mg capsule 100 mg PO TID #30 caps 06/18/23 [Rx Last Taken Unknown] benztropine 1 mg tablet 1 mg PO TID 06/18/23 [History Last Taken Unknown] clotrimazole 1 % topical cream 1 applic topical BID 06/18/23 [History Last Taken Unknown] gabapentin 100 mg capsule See Rx Instructions .Route .COMPLEX 06/18/23 [History Last Taken Unknown] lidocaine 5 % topical patch 1 patch topical QHS 06/18/23 [History Last Taken Unknown] lurasidone 120 mg tablet 120 mg PO DAILY 06/18/23 [History Last Taken Unknown] ondansetron HCl 4 mg tablet 4 mg PO Q6H PRN nausea and vomiting 06/18/23 [History Last Taken Unknown] potassium chloride 20 mEq tablet,extended release 20 meq PO DAILY 06/18/23 [History Last Taken Unknown] prazosin 1 mg capsule 3 mg PO QHS 06/18/23 [History Last Taken Unknown] trazodone 50 mg tablet 50 mg PO QHS 06/18/23 [History Last Taken Unknown] walker #1 ea 06/27/23 [Rx Last Taken Unknown] compress.stocking,knee,reg,lrg #2 ea 07/01/23 [Rx Last Taken Unknown] blood sugar diagnostic (FreeStyle Lite Strips) #100 ea 07/09/23 [Rx Last Taken Unknown] blood-glucose meter (FreeStyle Lite Meter kit) #1 ea 07/09/23 [Rx Last Taken Unknown] lancets 28 gauge (FreeStyle Lancets) #200 ea 07/09/23 [Rx Last Taken Unknown] pen needle, diabetic 31 gauge x 3/16 (Comfort EZ Pen [place]) #100 ea 07/09/23 [Rx Last Taken Unknown] albuterol sulfate 90 mcg/actuation aerosol inhaler (ProAir HFA) 1 - 2 puff inhalation Q6H PRN shortness of breath or wheezing #8.5 grams 07/20/23 [Rx Last Taken Unknown] atorvastatin 40 mg tablet 40 mg PO QHS cholesterol #90 tabs 07/20/23 [Rx Last Taken Unknown] folic acid 1 mg tablet 1 mg PO DAILY@0800 supplement #90 tabs 07/20/23 [Rx Last Taken Unknown] losartan 25 mg tablet 25 mg PO DAILY 90 days #90 tabs 07/20/23 [Rx Last Taken Unknown] oxybutynin chloride 10 mg tablet,extended release 24 hr 10 mg PO DAILY #90 tabs 07/20/23 [Rx Last Taken Unknown] pantoprazole 40 mg tablet,delayed release 40 mg PO DAILY GERD #90 tabs 07/20/23 [Rx Last Taken Unknown] sertraline 50 mg tablet 50 mg PO DAILY depression #90 tabs 07/20/23 [Rx Last Taken Unknown] coenzyme Q10 100 mg capsule (Co Q-10) 200 mg PO DAILY 07/29/23 [History Last Taken Unknown] Allergy/AdvReac Type Severity Reaction Status Date / Time aspartame Allergy Swelling Verified 07/29/23 17:39 latex Allergy Unknown Verified 07/29/23 17:39 Penicillins Allergy Laryngospas Verified 07/29/23 17:39 ms Family History Unknown Patient was adopted Surgical History History of section History of cholecystectomy History of hip surgery Social History Smoking Status: Never smoker alcohol intake: never substance use type: does not use what type of physical activity do you participate in: walking frequency: daily duration: 30-45 minutes/day ROS ROS Narrative Constitutional: Reports fatigue and weakness. No fever. HEENT: Reports systems reviewed and no addt'l complaints, except as documented Respiratory/Chest: Mild shortness of breath even at rest and wheezing. CVS: As described in HPI. No chest pain Gastrointestinal: Denies coffee ground emesis, hematemesis or vomiting Genitourinary: Denies burning urination or new urinary tract symptoms Musculoskeletal: Syncope and fall couple times at her head. No major external injury. Denies acute joint pain or limited range of motion. No acute injury Neurologic: Denies seizure-like symptoms. No strokelike symptoms. skin: No ulcer. No rash Endocrinology: Reports systems reviewed and no addt'l complaints, except as documented Hematologic/Lymphatic: Reports systems reviewed and no addt'l complaints, except as documented Rest 14 ROS are negative except as mentioned in HPI Vital Signs Vital Signs Vital Signs: 07/29/23 17:40 07/29/23 17:42 07/29/23 18:32 Temperature 97.5 F L 97.5 F L Temperature Source Temporal Temporal Pulse Rate 99 99 96 Respiratory Rate 16 16 16 Blood Pressure 184/100 H 184/100 H 171/93 H Blood Pressure Mean 128 128 119 Pulse Ox 97 97 79 Oxygen Delivery Method Room Air Room Air Room Air Oxygen Flow Rate (L/min) 07/29/23 18:36 Temperature Temperature Source Pulse Rate 93 Respiratory Rate 21 H Blood Pressure 171/93 H Blood Pressure Mean 119 Pulse Ox 99 Oxygen Delivery Method Nasal Cannula Oxygen Flow Rate (L/min) 4 Weight Weight: 176 lb 5.917 oz Body Mass Index (BMI) 30.2 Physical Exam Narrative General: Alert, Oriented x3, Cooperative HEENT: Atraumatic, PERRLA, EOMI, Normocephalic. No focal head swelling/bruise. Oral: Oral mucosa dry. No Gingival or Mucosal Lesions/ Ulcerations Neck: Supple, No JVD, Negative Carotid Bruits Chest wall/Lungs: Air entry diminished in bilateral lung bases. No crepitation/rhonchi Cardiovascular: Regular rate, Regular Rhythm, Normal S1, Normal S2, systolic murmur present over LLSB and cardiac apex with radiation to left axilla Abdomen: Bowel Sounds Present, Soft, Non Tender, mild abdominal distention possible mild ascites : No dysuria. No renal angle tenderness. No suprapubic tenderness. Extremities: Bilateral 2+ lower leg pitting edema, Capillary Refill Less than 3 Seconds Skin: No rashes, No breakdown Musculoskeletal: No Tenderness to Palpation of Joints or Extremities. ROM intact. Neurological: Cranial nerves II-XII grossly intact, DTR 2+/4. No acute focal neurological deficit. Psych/Mental Status: Flat affect Results Lab / Micro Data 07/29/23 18:20 07/29/23 18:20 Labs: Laboratory Results - last 24 hr 07/29/23 18:20: WBC 8.5, RBC 4.44, Hgb 12.8, Hct 39.4, MCV 88.7, MCH 28.8, MCHC 32.5, RDW Std Deviation 45.6 H, RDW Coeff of [place] 14.4, Plt Count 254, MPV 9.7, Immature Gran % (Auto) 0.400, Neut % (Auto) 69.7, Lymph % (Auto) 22.2, [place] % (Auto) 5.8, Eos % (Auto) 1.5, Baso % (Auto) 0.4, Absolute Neuts (auto) 5.9, Absolute Lymphs (auto) 1.88, Nucleated RBC % 0, Sodium 144, Potassium 3.3 L, Chloride 108 H, Carbon Dioxide 30.0, Anion Gap 6, BUN 21 H, Creatinine 1.04 H, Estim Creat Clear Calc 59.60, Est GFR (MDRD) Af Amer 70, Est GFR (MDRD) Non-Af 58 L, BUN/Creatinine Ratio 20.2 H, Glucose 92, Calcium 8.4 L, Total Bilirubin 0.70, AST 15, ALT 12 L, Alkaline Phosphatase 215 H, B-Natriuretic Peptide 1235.4 H, Total Protein 6.2 L, Albumin 2.5 L, Globulin 3.7, Albumin/Globulin Ratio 0.7 L, Lipase 17 Micro: Microbiology 07/29/23 18:30 Mucosa - Nasopharyngeal SARS-CoV-2, Influenza & RSV (PCR) - Final Imaging Radiology Impression Chest X-Ray 07/29/23 18:23 IMPRESSION: Bilateral edema or pneumonia and pleural effusions. Cardiac enlargement. Electronically Signed: Leodan Dyer MD at 19:06 EST , Assessment & Plan Assessment/Plan (1) CHF exacerbation: (2) Syncope and collapse: PLAN: Plan This is 57-year-old female being admitted multiple complaints but mainly shortness of breath leg swelling and wheezing consistent with possible CHF exacerbation 1. Acute on chronic HFpEF, CHF, NYHA stage III: Patient is being admitted in PCU. Twelve-lead EKG shows QTc 512 ms. Low voltage QRS complexes. Chest x-ray shows pulmonary venous congestion and cardiomegaly, right heart border Looks more predominantly large. And a small pleural effusion. CT chest is is ordered. Patient is started on furosemide 40 mg IV every 12 hourly. Mild hypokalemia, K3.3. Potassium replaced. Serum magnesium and phosphorus ordered. Spironolactone 12.5 mg started from tomorrow AM. 2D echo is ordered. Her last echo was in July 2020 which shows EF 60% stage I diastolic dysfunction, PASP 30 mmHg. Mild TR. Heart failure core measures including intake and output, fluid restriction less than 1500 mL, daily weight monitoring, kidney and electrolytes monitoring. Metoprolol 12.5 mg twice daily. 2. Chronic history of recurrent syncope most likely due to orthostatic hypotension: Patient on fludrocortisone continued. Orthostatic BP tomorrow a.m.Thigh-high MIRTA hose during walking. HCTZ was discontinued during previous hospitalization in June 2020. Patient has nausea vomiting loose bowel movements which are controlled. CT abdomen without contrast is ordered 3. Chronic seizure disorder: Patient on Keppra. During previous hospitalization June 2023 EEG showed no focal lateralized or epileptiform abnormalities. 4. Type 2 diabetes mellitus: Patient was on Lantus insulin before but currently not showing up on her home medications. Accu-Chek is indicis, regimen of sliding scale. Glucose in BMP is 92. A1c tomorrow a.m. 5. Dyslipidemia: Fasting profile ordered for tomorrow AM on statin. 6. Bipolar disorder: Patient on trazodone and sertraline. Hold trazodone as patient has QTc prolonged. Monitor EKG daily for QTc interval. 7. DVT Prophylaxis: Enoxaparin 40 mg subcu daily. Discontinue if platelet count drops less than 50,000 or hemoglobin less than 8 g% Living will/advanced directive/end of life care: Patient does have living will or advanced directive. Her is power of lifestyle block farmer for health. After discussion of benefits/risks procedures involved with full code, DNR CC arrest and DNR CC, the patient opted for full code. Patient does want artificial life support including intubation, tube feed, ventilator and/chest compression, central venous catheter, vasopressor and DC shock if needed Total time spent in [id number] encounter in discussion of advanced directive 17 minutes. Microbiology Past 72 Hours 07/29/23 18:30 Mucosa - Nasopharyngeal SARS-CoV-2, Influenza & RSV (PCR) - Final Laboratory Results 07/29/23 18:20: WBC 8.5, RBC 4.44, Hgb 12.8, Hct 39.4, MCV 88.7, MCH 28.8, MCHC 32.5, RDW Std Deviation 45.6 H, RDW Coeff of [place] 14.4, Plt Count 254, MPV 9.7, Immature Gran % (Auto) 0.400, Neut % (Auto) 69.7, Lymph % (Auto) 22.2, [place] % (Auto) 5.8, Eos % (Auto) 1.5, Baso % (Auto) 0.4, Absolute Neuts (auto) 5.9, Absolute Lymphs (auto) 1.88, Nucleated RBC % 0, Sodium 144, Potassium 3.3 L, Chloride 108 H, Carbon Dioxide 30.0, Anion Gap 6, BUN 21 H, Creatinine 1.04 H, Estim Creat Clear Calc 59.60, Est GFR (MDRD) Af Amer 70, Est GFR (MDRD) Non-Af 58 L, BUN/Creatinine Ratio 20.2 H, Glucose 92, Calcium 8.4 L, Total Bilirubin 0.70, AST 15, ALT 12 L, Alkaline Phosphatase 215 H, B-Natriuretic Peptide 1235.4 H, Total Protein 6.2 L, Albumin 2.5 L, Globulin 3.7, Albumin/Globulin Ratio 0.7 L, Lipase 17 07/29/23 19:40: Urine Color Yellow, Urine Clarity Cloudy, Urine pH 7.0, Ur Specific [place] 1.010, Urine Protein 500 H, Urine Glucose (UA) Normal, Urine Ketones 15 H, Urine Occult Blood 50 H, Urine Nitrite Positive H, Urine Bilirubin Negative, Urine Urobilinogen 1 H, Ur Leukocyte Esterase 500 H, Urine RBC 0 SEEN, Urine WBC 50-100 SEEN, Ur Squamous Epith Cells 0 SEEN, Urine Bacteria 4+, Urine Mucus 0 SEEN Clinical Impression(s) from Imaging Studies Chest X-Ray 07/29/23 18:23 IMPRESSION: Bilateral edema or pneumonia and pleural effusions. Cardiac enlargement. Electronically Signed: Leodan Dyer MD at 19:06 EST , Brain CT 07/29/23 19:48 IMPRESSION: Chronic involutional changes of the brain. Electronically Signed: Leodan Dyer MD at 20:34 EST , Charges/Coding Visit Charges Inpatient E&M: 75329 Init Hosp L3 Procedures Hospitalists Procedures: 63764 Advncd Care Plan 30 Min
[2023-07-29 20:00] LABS: Bacteria 4+ /hpf (None Seen); White Blood Cells 50-100 SEEN /hpf (0-5)
--- NOTE | 2023-07-29 20:13 | CT_ITS ---
STUDY: CT CHEST WITHOUT CONTRAST REASON FOR EXAM: Female, 57 years old. Pericardial effusion RADIATION DOSAGE (If Supplied By Facility): CTDIvol = ( 10.39 ) mGy, DLP = ( 350.34 ) mGycm TECHNIQUE: Transaxial imaging was performed without the administration of intravenous contrast material. Multiplanar coronal and sagittal images were reformatted. Individualized dose optimization techniques were used for this CT. COMPARISON: Chest x-ray FINDINGS: CHEST There is bilateral lower lung airspace consolidation. There are moderate bilateral pleural effusions. There are calcifications of the coronary arteries. There is a small pericardial effusion. Normal mediastinum. Normal hilar regions. Normal unenhanced pulmonary arteries. There is atherosclerotic calcification of the aortic arch with tortuosity and elongation of the aortic arch and descending thoracic aorta. Normal osseous structures. There is ascites in the visualized upper abdomen. CT/Chest without Contrast IMPRESSION: Bilateral infiltrates or edema and pleural effusions. Pericardial effusion. Electronically Signed: Leodan Dyer MD at 22:06 [facility] ,
[2023-07-29] MEDS: Furosemide 40 MG/4 ML Vial IV (20:40)
--- NOTE | 2023-07-29 20:45 | ED.RN ---
200 ml infused from 1 L bag. did not continue infusion. notified
--- NOTE | 2023-07-29 20:50 | CT_ITS ---
STUDY: CT ABDOMEN AND PELVIS WITHOUT CONTRAST REASON FOR EXAM: Female, 57 years old. Ascites RADIATION DOSAGE (If Supplied By Facility): CTDIvol = ( 15.90 ) mGy, DLP = ( 1199.95 ) mGycm TECHNIQUE: Transaxial images were obtained from the dome of the diaphragm to the symphysis pubis without oral contrast, and without intravenous contrast. Sagittal and coronal images were reconstructed. Individualized dose optimization techniques were used for this CT. COMPARISON: November 05, 2017 FINDINGS: There is lower lung consolidation and pleural effusions. There is small pericardial effusion. There is hepatomegaly with diffuse hepatic enlargement. There are surgical clips in the gallbladder fossa consistent with a prior cholecystectomy. There is moderate splenomegaly. Normal pancreas. Normal bilateral adrenal glands. Small calcifications in the central aspect of the kidneys urinary or vascular. There is no hydronephrosis. Normal visualized stomach. Normal small intestine. Normal colon. The appendix is visualized and appears normal. Normal abdominal aorta. Normal inferior vena cava. Normal retroperitoneum. Normal urinary bladder. Normal visualized uterus. There is moderate ascites in the abdomen and pelvis. There is subcutaneous edema of the abdominal wall. There is degenerative change of the spine. There is right hip pinning. CT/Abdomen/Pelvis without Cont IMPRESSION: Hepatosplenomegaly. Ascites. Lower lung consolidation and pleural effusions. Pericardial effusion. Calcifications of the kidneys could be urinary or vascular. Electronically Signed: Leodan Dyer MD at 22:00 EST ,
[2023-07-29 21:52] LABS: Magnesium 1.5 mg/dL (1.6-2.6)
[2023-07-29 22:06] LABS: International Normalized Ratio 1.1; Prothrombin Time (Protime)PT. 14.5 SECONDS (11.7-14.9)
[2023-07-29] MEDS: Ceftriaxone 1 GM/50 ML BAG IV (23:06)
[2023-07-30] VITALS (10 sets, daily range): BP systolic 144–179; BP diastolic 72–97; PULSE 78–96; RESP 16–18; TEMP 36.3–37.3; O2SAT 98–100; BMI 29.0
[2023-07-30] MEDS: Metoprolol Tartrate 25 MG Tablet 12.5 MG PO ×3 (01:27→22:57)
[2023-07-30] MEDS: Potassium Chloride Oral Tablet 20 MEQ 40 MEQ PO ×3 (01:27→10:58)
[2023-07-30] MEDS: Atorvastatin Calcium 40 MG Tablet PO ×2 (01:27→23:01)
[2023-07-30] MEDS: Gabapentin 100 MG Capsule 200 MG PO ×2 (01:29→22:56)
[2023-07-30] MEDS: Benzonatate 100 MG Capsule 200 MG PO ×4 (01:29→22:56)
[2023-07-30] MEDS: Enoxaparin 40 MG/0.4 ML Syringe SC ×2 (01:29→09:06)
[2023-07-30] MEDS: Doxazosin 1 MG Tablet 2.5 MG PO ×2 (01:31→23:02)
[2023-07-30] MEDS: Benztropine Mesylate 0.5 MG TABLET 1 MG PO ×4 (01:31→22:56)
[2023-07-30] MEDS: CLARIFY ORDER 1 EACH NOTE (02:03)
[2023-07-30 02:44] LABS: Absolute Lymphocyte Count 1.62 X10^3/uL (0.83-4.51); Absolute Neutrophil Count 5.4 X10^3/uL (2.0-7.7); Basophil# 0.05 X10^3/uL; Basophil% 0.6 % (0-1); Eosinophil# 0.16 X10^3/uL; Eosinophils% 2.1 % (0-5); Hemoglobin 11.5 g/dL (12.0-15.0); Lymphocyte # 1.62 X10^3/ul (0.83-4.51); Lymphocyte % 20.9 % (19-41); Mean Corp Hgb Conc 31.9 g/dL (32-36); Mean Corpuscular Hgb 28.3 pg (27.0-32.0); Mean Corpuscular Volume 88.7 fL (81-99); Mean Platelet Vol. 8.7 fl (6.2-12.0); Monocyte# 0.47 X10^3/uL; Monocyte% 6.1 % (0-10); NRBC Flagged by Analyzer 0 % (0-5); Neutrophil # 5.43 X10^3/uL (2.7-7.7); Platelet Count 206 K/mm3 (150-450); RBC Distribution Width CV 14.3 % (11.6-14.6); RBC Distribution Width SD 45.2 fl (35.1-43.9); Red Blood Count 4.06 M/mm3 (4.2-5.4); White Blood Count 7.8 K/mm3 (4.4-11.0)
[2023-07-30 02:50] LABS: Bedside Glucose 90 mg/dL (74-106)
[2023-07-30 03:04] LABS: Troponin-I HS 50 pg/mL (3.0-54.0)
[2023-07-30 03:09] LABS: Anion Gap 7 (5-15); BUN 21 mg/dL (7-18); BUN/Creat Ratio 20.8 RATIO (10-20); Calcium,Total 7.9 mg/dL (8.5-10.1); Chloride 108 mmol/L (98-107); Cholesterol 122 mg/dL (200); Creatinine, Serum 1.01 mg/dL (0.55-1.02); EST Glomerular Filtration Rate 59 mL/min (>60); Est Glom Filt Rate - Afr Amer 72 mL/min (>60); Estimated Creatinine Clearance 60.08 ml/min; Glucose 96 mg/dL (74-106); High Density Lipoprotein 43 mg/dL; Sodium Level 146 mmol/L (136-145); Triglycerides 126 mg/dL; Very Low Density Lipoprotein 25 mg/dL (5-40)
[2023-07-30 05:17] LABS: Troponin-I HS 59 pg/mL (3.0-54.0)
--- NOTE | 2023-07-30 05:55 | ECHOD_ITS ---
Reason For Study: CHF Procedure This was a 2D Doppler, Color Flow transthoracic echocardiogram. Exam performed portable in patient room. Left Ventricle Normal LV size. Mild concentric left ventricular hypertrophy. Moderate global left ventricular systolic dysfunction. The estimated ejection fraction is 40 %. Stage 2 diastolic dysfunction. Right Ventricle Normal RV size. Normal systolic function. Atria The left and right atria are normal. Mitral Valve Mild focal mitral valve calcification of the posterior leaflet. The mitral valve is structurally normal. No prolapse or stenosis seen. Mild (1+) mitral valve insufficiency. Tricuspid Valve Normal tricuspid valve. Mild to moderate (1-2+) tricuspid valve insufficiency. Right ventricular systolic pressure estimated to be 57 mmHg. Moderate pulmonary hypertension. Aortic Valve Trisinus/trileaflet aortic valve. Mild focal aortic valve thickening. Aortic sclerosis, no stenosis. Pulmonic Valve Normal pulmonic valve. Great Vessels Normal aortic root. Pericardium/Pleural Circumferential effusion. Small pericardial effusion. There are no echocardiographic indications of cardiac tamponade. Large left pleural effusion. MMode/2D Measurements & Calculations LVIDd: 4.5 cm IVSd: 1.3 cm Ao root diam: 2.9 cm LVIDs: 3.6 cm LVPWd: 1.4 cm RVDd: 3.3 cm FS: 20.1 % LAV(MOD-bp): 43.9 ml LVAd ap4: 28.8 cm2 LVAd ap2: 29.1 cm2 LAV(MOD-bp) Indexed: 24.2 ml/m2 LVLd ap4: 7.8 cm LVLd ap2: 8.0 cm LAV(MOD-sp2): 40.6 ml EDV(MOD-sp4): 88.4 ml EDV(MOD-sp2): 92.4 ml LAV(MOD-sp4): 43.1 ml EDV(sp4-el): 90.3 ml EDV(sp2-el): 90.2 ml LVAs ap4: 20.9 cm2 LVAs ap2: 21.3 cm2 LVLs ap4: 7.2 cm LVLs ap2: 7.7 cm ESV(MOD-sp4): 51.9 ml ESV(MOD-sp2): 54.4 ml ESV(sp4-el): 51.5 ml ESV(sp2-el): 50.5 ml EF(MOD-sp4): 41.2 % EF(MOD-sp2): 41.1 % EF(sp4-el): 43.0 % SV(MOD-sp4): 36.4 ml SV(MOD-sp2): 38.0 ml SV(sp4-el): 38.8 ml LA dimension(2D): 3.8 cm LA A4 area: 16.9 cm2 RA A4 area: 11.9 cm2 TAPSE: 1.9 cm Time Measurements MV dec time: 0.12 sec Doppler Measurements & Calculations MV E max omid: 81.5 cm/sec Lat Peak E' Omid: 4.1 cm/sec Med Peak E' Omid: 4.0 cm/sec MV A max omid: 78.9 cm/sec E/E' lat: 20.0 E/E' med: 20.4 MV E/A: 1.0 MV dec slope: 688.7 cm/sec2 Ao V2 max: 118.5 cm/sec LV V1 max: 85.2 cm/sec Ao max P.6 mmHg LV V1 max P.9 mmHg Ao V2 mean: 85.2 cm/sec LV V1 mean P.8 mmHg Ao mean P.2 mmHg LV V1 mean: 63.4 cm/sec Ao V2 VTI: 27.2 cm LV V1 VTI: 19.8 cm AV (velocity ratio): 0.73 PA V2 max: 77.4 cm/sec TR max omid: 365.6 cm/sec TR max P.5 mmHg ECHO/Echo Complete Interpretation Summary The estimated ejection fraction is 40-45 %. Stage 2 diastolic dysfunction. Mild (1+) mitral valve insufficiency. Mild to moderate (1-2+) tricuspid valve insufficiency. Moderate pulmonary hypertension. Aortic sclerosis, no stenosis. Small pericardial effusion. There are no echocardiographic indications of cardiac tamponade. Ordering Physician: Jeff Cartagena Referring Physician: Trudy Ordaz Performed By: Deirdre De La Fuente RDCS
[2023-07-30] MEDS: Gabapentin 100 MG Capsule PO ×2 (06:20→14:22)
[2023-07-30 07:58] LABS: Bedside Glucose 100 mg/dL (74-106)
[2023-07-30 09:00] LABS: Troponin-I HS 47 pg/mL (3.0-54.0)
[2023-07-30] MEDS: Fludrocortisone Acetate 0.1 MG Tablet PO (09:05)
[2023-07-30] MEDS: Spironolactone 25 MG Tablet 12.5 MG PO (09:05)
[2023-07-30] MEDS: Losartan Potassium 25 MG Tablet PO (09:05)
[2023-07-30] MEDS: Tolterodine Tartrate 2 MG CAP.SA PO (09:05)
[2023-07-30] MEDS: Folic Acid 1 MG Tablet PO (09:05)
[2023-07-30] MEDS: Furosemide 40 MG/4 ML Vial IV ×2 (09:06→17:25)
[2023-07-30] MEDS: Sertraline 50 MG Tablet PO (09:07)
[2023-07-30] MEDS: Pantoprazole Sodium 40 MG Tablet PO (09:07)
[2023-07-30] MEDS: 0.9% Saline Lock 10 ML Syringe IV ×3 (09:10→17:25)
--- NOTE | 2023-07-30 09:40 | CASEMGMT ---
Addendum entered by Lesly Haji 07/30/23 11:11: Pt is on O2 here. Local list of in network DME companies provided to the pt. Pt chooses [employer] for potential home O2 needs. Original Note: JOHANA GRIFFIN Assessment Face to Face with patient for initial transition planning/care coordination assessment. JOHANA GRIFFIN introduced self and role at [facility], pt voices understanding. Pt is A&Ox4 and is resting comfortably in bed and is calm. Care providers, pharmacy, and demographics verified. Admitting dx: SOB, CHF, Syncope LACE Strata: 2 PCP: [facility] Specialists: Denies Preferred Pharmacy: [facility] Insurance: [employer]/ [employer] Prescription Benefit: Yes LNOK: Trey Shaw (H) Living Arrangements: Pt lives in a single floor setup with her with 13 steps with handrails to enter the home. Pt states that she does get SOB at times when using the steps. ADLs/IADLs: Ind with ADLs and pt helps with IADLs Transportation: DME: [employer]. Cane, walker, shower chair. Pt states she rotates use between walker and cane. HHC/SNF: States history at [facility] in 2022 x5 months for a hip fracture. Denies HHC history. States wanting HHC set up, will follow. Pt?s goal: Home with HHC Plan: Pt will be here today per Dr. Israel. 6-Click = 16. PT/OT yet to eval. Pt states wanting HHC list. A local list of in-network HHC agencies provided to the pt at this time. Will follow. Francisca Haji RN, CM
--- NOTE | 2023-07-30 09:46 | PCM.PN.HOSP ---
Reason for Visit Reason for Visit: Diagnoses Heart failure, unspecified (07/29/23) Syncope and collapse (07/29/23) Subjective Subjective Patient overnight with no acute events however continued need for electrolyte supplementation. She does report feeling fatigued and dyspneic despite recent interventions and diuresis. Discussed the need to continue electrolyte supplementation of both potassium and magnesium. Echocardiogram has been done but results are pending. Discussed that if her urine culture was unremarkable antibiotic therapy would be de-escalated which is the case. Patient denies fevers, chills, nausea, emesis, abdominal pain, chest pain. Objective Data Objective Data Vital Signs: Vital Signs Temp Pulse Resp BP Pulse Ox O2 Del Method O2 Flow Rate 98.6 F 85 16 158/87 H 98 Nasal Cannula 2 07/30/23 08:56 07/30/23 09:06 07/30/23 08:56 07/30/23 09:06 07/30/23 08:56 07/30/23 08:56 07/30/23 08:56 Oxygen Flow Rate (L/min) 2 Oxygen Delivery Method Nasal Cannula Weight: 168 lb 13.985 oz Body Mass Index (BMI) 29.0 Intake & Output: Intake and Output for Last 24 Hours 07/28/23 07/29/23 07/30/23 23:59 23:59 23:59 Intake Total 200 / 200 350 / 350 Balance 200 / 200 350 / 350 Lab / Micro Data 07/30/23 02:30 07/30/23 02:30 Labs: Laboratory Results - last 24 hr 07/29/23 18:20: WBC 8.5, RBC 4.44, Hgb 12.8, Hct 39.4, MCV 88.7, MCH 28.8, MCHC 32.5, RDW Std Deviation 45.6 H, RDW Coeff of Emery 14.4, Plt Count 254, MPV 9.7, Immature Gran % (Auto) 0.400, Neut % (Auto) 69.7, Lymph % (Auto) 22.2, [place] % (Auto) 5.8, Eos % (Auto) 1.5, Baso % (Auto) 0.4, Absolute Neuts (auto) 5.9, Absolute Lymphs (auto) 1.88, Nucleated RBC % 0, Sodium 144, Potassium 3.3 L, Chloride 108 H, Carbon Dioxide 30.0, Anion Gap 6, BUN 21 H, Creatinine 1.04 H, Estim Creat Clear Calc 59.60, Est GFR (MDRD) Af Amer 70, Est GFR (MDRD) Non-Af 58 L, BUN/Creatinine Ratio 20.2 H, Glucose 92, Calcium 8.4 L, Magnesium 1.5 L, Total Bilirubin 0.70, AST 15, ALT 12 L, Alkaline Phosphatase 215 H, B-Natriuretic Peptide 1235.4 H, Total Protein 6.2 L, Albumin 2.5 L, Globulin 3.7, Albumin/Globulin Ratio 0.7 L, Lipase 17 07/29/23 19:40: Urine Color Yellow, Urine Clarity Cloudy, Urine pH 7.0, Ur Specific [place] 1.010, Urine Protein 500 H, Urine Glucose (UA) Normal, Urine Ketones 15 H, Urine Occult Blood 50 H, Urine Nitrite Positive H, Urine Bilirubin Negative, Urine Urobilinogen 1 H, Ur Leukocyte Esterase 500 H, Urine RBC 0 SEEN, Urine WBC 50-100 SEEN, Ur Squamous Epith Cells 0 SEEN, Urine Bacteria 4+, Urine Mucus 0 SEEN 07/29/23 21:52: PT 14.5, INR 1.1 07/30/23 01:01: POC Glucose 90 07/30/23 02:30: WBC 7.8, RBC 4.06 L, Hgb 11.5 L, Hct 36.0 L, MCV 88.7, MCH 28.3, MCHC 31.9 L, RDW Std Deviation 45.2 H, RDW Coeff of Emery 14.3, Plt Count 206, MPV 8.7, Immature Gran % (Auto) 0.300, Neut % (Auto) 70.0, Lymph % (Auto) 20.9, [place] % (Auto) 6.1, Eos % (Auto) 2.1, Baso % (Auto) 0.6, Absolute Neuts (auto) 5.4, Absolute Lymphs (auto) 1.62, Nucleated RBC % 0, Sodium 146 H, Potassium 3.0 L, Chloride 108 H, Carbon Dioxide 31.0, Anion Gap 7, BUN 21 H, Creatinine 1.01, Estim Creat Clear Calc 60.08, Est GFR (MDRD) Af Amer 72, Est GFR (MDRD) Non-Af 59 L, BUN/Creatinine Ratio 20.8 H, Glucose 96, Calcium 7.9 L, Troponin I High Sens 50, Triglycerides 126, Cholesterol 122, LDL Cholesterol 54, VLDL Cholesterol 25, HDL Cholesterol 43, TSH 2.50 07/30/23 04:45: Troponin I High Sens 59 H 07/30/23 06:28: POC Glucose 100 07/30/23 08:30: Troponin I High Sens 47 Micro: Microbiology 07/29/23 18:30 Mucosa - Nasopharyngeal SARS-CoV-2, Influenza & RSV (PCR) - Final Radiography Diagnostic Testing: Radiology Impression Chest X-Ray 07/29/23 18:23 IMPRESSION: Bilateral edema or pneumonia and pleural effusions. Cardiac enlargement. Electronically Signed: Leodan Dyer MD at 19:06 EST , Brain CT 07/29/23 19:48 IMPRESSION: Chronic involutional changes of the brain. Electronically Signed: Leodan Dyer MD at 20:34 EST Reading Location ID and State: [facility] / [place] , Service support , Chest CT 07/29/23 20:13 IMPRESSION: Bilateral infiltrates or edema and pleural effusions. Pericardial effusion. Electronically Signed: Leodan Dyer MD at 22:06 EST Reading Location ID and State: [facility] / [place] , Service support , Abdomen/Pelvis CT 07/29/23 20:50 IMPRESSION: Hepatosplenomegaly. Ascites. Lower lung consolidation and pleural effusions. Pericardial effusion. Calcifications of the kidneys could be urinary or vascular. Electronically Signed: Leodan Dyer MD at 22:00 EST , Physical Exam Narrative Physical Examination: General: Awake, alert, oriented x 3 and cooperative, seated upright in PCU bedside chair, fatigued. Skin: Normal color, normal turgor, no icterus, no cyanosis. HEENT: AT/NC, EOMI, PERRLA, MMM. Lungs: Diminished, greater bases, no evidence of any distress, no tachypnea, mild rales bases, no rhonchi or wheezing. Heart: Regular rate and rhythm; no gallop, rub audible. Abdomen: Soft, overweight, NTTP, no marked distention, distant bowel sounds. Extremities: No cyanosis, no clubbing, no marked peripheral pitting edema noted but patient does report that her legs feel improved since initial ED presentation. Neurological: Patient awake, alert, oriented as noted, cognitive function intact; pupils equally reactive to light and accommodation, cranial nerves II-XII grossly normal, moving all 4 extremities, no focal deficits, strength moderately global decrease. Psychiatric: Affect appears fatigued, no acute evidence of depressive or anxiety feelings. Assessment & Plan Assessment/Plan (1) CHF exacerbation: PLAN: Plan The patient is a 57 y/o F w/ PMHx: CKD stage III unclear subtype, Overweight, Anxiety and Depression/Bipolar disorder, Seizure disorder, Chronic anemia, Diabetes mellitus type II who presents to the [facility] ED on 07/29/23 with history of 3 weeks of progressively worsening fatigue, malaise, persistent dry cough, increasing edema with lower extremity swelling and dyspnea worsening with exertion with dizziness with standing with on day of presentation episode similarly of upon standing significant lightheadedness and dizziness with syncopal event coming to just seconds later which has happened previously. 1. Acute Hypoxia secondary to Acute Decompensated HFpEF with associated recurrent syncope suspected orthostatic in addition to incidentally noted pericardial effusion as well as pleural effusions: ED evaluation included CXR with evidence edema and pleural effusions, cardiac enlargement, CT brain with chronic involutional changes, CT chest filtrates or edema and pleural effusions, pericardial effusion. Admitted to PCU, maintained on cardiac telemetry, enzymes 50 -> 59 -> 47, will continue to monitor I/Os, continue medical therapy w/ aspirin, statin, losartan, metoprolol, initiated on spironolactone, initiated upon presentation and continued on IV Lasix. Most recent ECHO 07/2020 w/ EF 60% stage I diastolic dysfunction, PASP 30 mmHg, mild TR with repeat performed, awaiting read. Magnesium 1.5 with supplementation requested with repeat level in AM. TSH 2.50. FLP with TG 126, total cholesterol 122, LDL 54, VLDL 25, HDL 43. Placed snug violet wraps. Syncopal events we will continue patient home fludrocortisone regimen. CT imaging upon presentation with also noted LLL consolidation, felt possibly more related with atelectasis and her effusions as no WBC elevation, afebrile, no recent productive cough. Procalcitonin requested. PT/OT/case management for discharge planning. 2. Acute Urinary Tract Infection RULED OUT, noted only presumptive E. Coli 1,000-10,000: UA upon ED evaluation remarkable; however, UCx w/ Presumptive E. coli w/ only 1000-10,000 CFU/mL. Will d/c IV rocephin. 3. Hypokalemia: Admission K+ 3.3 magnesium 1.5, both potassium and magnesium supplemented, repeat level 07/30/2023 3.0, will give additional supplementation and repeat level in AM. 4. Hypomagnesemia: Magnesium level obtained 1.5, IV supplementation ordered, repeat magnesium level in AM. 5. Incidentally noted HSM: CT abdomen and pelvis with evidence of hepatosplenomegaly, ascites, CMP w/ T. bili 0.70, AST/ALT 15/12, alk phos 215, Coags normal upon presentation. Last CT imaging noted in the system 2018 and at that time there is no demonstrated hepatosplenomegaly. Will need to have patient closely follow-up with gastroenterology for further evaluation. 6. Chronic Disease Stage III, unclear subtype per history and GFR recent trending: Admission BUN/Cr 21/1.04, baseline renal function 0.9-1.3, 07/30/23 BUN/Cr 21/1.01, repeat BMP in AM. 7. Diabetes mellitus type II with chronic neuropathy: Hold oral home regimen, continue home insulin regimen, ADA diet, accu checks w/ ISS, continue home gabapentin regimen, hemoglobin A1c pending. 8. Chronic normocytic anemia: Admission hemoglobin 12.8 however baseline primarily 10-11, administered IV Lasix overnight as noted, repeat 07/30/2023 hemoglobin 11.4, stable, continue to trend. 9. Anxiety and depression/bipolar disorder: We will continue patient home sertraline and trazodone regimen, monitoring QTc upon presentation. 10. Seizure disorder: We will continue patient home Keppra regimen, previous hospitalization 06/2023 with EEG demonstrating no focal lateralized or epileptiform abnormalities at that time however of note. 11. Hypertension: Continue home regimen including metoprolol, losartan, IV Lasix as noted. Previous admission with similar syncopal event with orthostasis on fludrocortisone regimen with hydrochlorothiazide discontinued at that time. Given heart failure representation as noted spironolactone also no added and therefore we will continue to closely monitor BP. PRN hydralazine. 12. Hyperlipidemia: Continue home statin regimen. AM FLP obtained as noted above. 13. Overweight: Weight loss and lifestyle changes encouraged. 14. GERD: We will continue patient on PPI. 15. DVT prophylaxis: Lovenox. Charges/Coding Visit Charges Inpatient E&M: 16006 Subs Hosp L3
[2023-07-30 09:56] LABS: Hemoglobin A1c 5.7 % (3.8-5.6)
--- NOTE | 2023-07-30 10:37 | CASEMGMT ---
Discharge Planning A list of HH ?providers including quality and resource use data and consistent with the patient's preferred geographic region, medical needs, and insurance network was created in [facility] Guide.? This list was provided to the RN ELIAS. Colette Carnes, Discharge Planning Asst.
[2023-07-30] MEDS: Aspirin 81 MG TAB.CHEW PO (10:59)
[2023-07-30] MEDS: Magnesium Sulfate 2 GM in Dextrose 5%-Water (100mL Bag) 100 ML IV (11:04)
[2023-07-30 12:03] LABS: Bedside Glucose 119 mg/dL (74-106)
--- NOTE | 2023-07-30 12:12 | CASEMGMT ---
Addendum entered by [facility] 07/30/23 15:49: Pt states that she would be willing to go to OP therapy if [facility] does not accept. [facility] 15:07: [facility] state they cannot accept the pt d/t insurance. We are still waiting on N to reply. [facility] 07/30/23 15:04: TC to [facility] and referral made at this time for SN, PT, and OT Addendum entered by [facility] 07/30/23 14:55: [facility] declines Addendum entered by [facility] 07/30/23 14:55: [facility] declines Addendum entered by [facility] 07/30/23 13:43: [facility] declines Addendum entered by [facility] 07/30/23 13:30: [facility] declines pt. Addendum entered by [facility] 07/30/23 13:29: [facility] declines the pt. RN CM to pt room at this time, pt only has 4 more in network agencies left on her list after [facility]. Pt states that it is OK to send referrals to the remaining agencies. Referral sent to [facility], [facility], [facility], and [facility] via [facility]. Addendum entered by [facility] 07/30/23 12:35: [facility] declines pt. Referral sent to [facility] and [facility] via [facility] at this time. Original Note: Pt chooses 1- [facility], 2 - [facility], 3 - [facility] for [facility]. Referral sent via [facility] at this time to [facility].
[2023-07-30 16:38] LABS: Bedside Glucose 135 mg/dL (74-106)
[2023-07-30 17:15] LABS: Procalcitonin 0.09 ng/mL (0.00-0.09)
[2023-07-31 01:47] VITALS: BMI 28.8
[2023-07-31 02:26] LABS: Bedside Glucose 143 mg/dL (74-106)
[2023-07-31 05:54] LABS: Absolute Neutrophil Count 2.6 X10^3/uL (2.0-7.7); Basophil# 0.03 X10^3/uL; Basophil% 0.7 % (0-1); Eosinophil# 0.28 X10^3/uL; Eosinophils% 6.2 % (0-5); Hematocrit 31.2 % (37-47); Hemoglobin 9.9 g/dL (12.0-15.0); Mean Corp Hgb Conc 31.7 g/dL (32-36); Mean Corpuscular Hgb 28.4 pg (27.0-32.0); Mean Corpuscular Volume 89.4 fL (81-99); Mean Platelet Vol. 9.1 fl (6.2-12.0); Monocyte# 0.28 X10^3/uL; Monocyte% 6.2 % (0-10); NRBC Flagged by Analyzer 0 % (0-5); Neutrophil # 2.58 X10^3/uL (2.7-7.7); Neutrophil % 57.5 % (47-70); Platelet Count 175 K/mm3 (150-450); RBC Distribution Width CV 14.1 % (11.6-14.6); RBC Distribution Width SD 45.1 fl (35.1-43.9); Red Blood Count 3.49 M/mm3 (4.2-5.4); White Blood Count 4.5 K/mm3 (4.4-11.0)
[2023-07-31 06:20] VITALS: BP 154/79; PULSE 75; RESP 18; TEMP 36.7; O2SAT 94
[2023-07-31 06:20] LABS: ALB/GLOB Ratio 0.7 RATIO (0.9-2.4); AST(SGOT) 14 U/L (15-37); Alanine Aminotransfer ALT/SGPT 11 U/L (13-56); Albumin, Serum 2.1 g/dL (3.2-5.0); Alkaline Phosphatase 163 U/L (45-117); Anion Gap 3 (5-15); BUN 22 mg/dL (7-18); BUN/Creat Ratio 19.1 RATIO (10-20); Calcium,Total 8.1 mg/dL (8.5-10.1); Chloride 108 mmol/L (98-107); Creatinine, Serum 1.15 mg/dL (0.55-1.02); EST Glomerular Filtration Rate 51 mL/min (>60); Est Glom Filt Rate - Afr Amer 62 mL/min (>60); Glucose 137 mg/dL (74-106); Magnesium 1.7 mg/dL (1.6-2.6); Potassium 3.5 mmol/L (3.5-5.1); Protein, Total 5.1 g/dL (6.4-8.2); Sodium Level 144 mmol/L (136-145)
--- NOTE | 2023-07-31 06:34 | PN.HOSP_ITS ---
Reason for Visit Reason for Visit: Diagnoses Heart failure, unspecified (07/29/23) Syncope and collapse (07/29/23) Subjective Subjective Patient without acute evidence overnight with no acute complaints per self or patient nurse. She had oxygenation de-escalated to off this AM but did require 2 L nasal cannula to maintain appropriate saturation upon ambulatory oxygenation assessment. Patient notes feeling improved from day prior and slept with much more ease, does not feel dyspneic as she did previously and amenable to discharge to home. Again reassured patient as did also the day prior that UTI was ruled out. Did discuss preference to continue her current medication regimen with outpatient continued close early follow-up. Also discussed again preference to follow-up with GI at first open visit. Patient denies fevers, chills, nausea, emesis, abdominal pain, chest pain or worsened dyspnea. Objective Data Objective Data Vital Signs: Vital Signs Temp Pulse Resp BP Pulse Ox O2 Del Method O2 Flow Rate 97.4 F L 90 18 169/90 H 98 Nasal Cannula 2 07/30/23 22:00 07/30/23 22:57 07/30/23 22:00 07/30/23 22:57 07/30/23 22:00 07/31/23 05:08 07/30/23 22:00 Oxygen Flow Rate (L/min) 2 Oxygen Delivery Method Nasal Cannula Weight: 167 lb 12.348 oz Body Mass Index (BMI) 28.8 Intake & Output: Intake and Output for Last 24 Hours 07/29/23 07/30/23 07/31/23 23:59 23:59 23:59 Intake Total 200 / 200 454 / 854 400 / 400 Balance 200 / 200 454 / 854 400 / 400 Lab / Micro Data 07/31/23 05:40 07/31/23 05:40 Labs: Laboratory Results - last 24 hr 07/30/23 02:30: Hemoglobin A1c 5.7 H 07/30/23 06:28: POC Glucose 100 07/30/23 08:25: Procalcitonin 0.09 07/30/23 08:30: Troponin I High Sens 47 07/30/23 11:43: POC Glucose 119 H 07/30/23 16:16: POC Glucose 135 H 07/30/23 23:08: POC Glucose 143 H 07/31/23 05:40: WBC 4.5, RBC 3.49 L, Hgb 9.9 L, Hct 31.2 L, MCV 89.4, MCH 28.4, MCHC 31.7 L, RDW Std Deviation 45.1 H, RDW Coeff of Emery 14.1, Plt Count 175, MPV 9.1, Immature Gran % (Auto) 0.400, Neut % (Auto) 57.5, Lymph % (Auto) 29.0, [place] % (Auto) 6.2, Eos % (Auto) 6.2 H, Baso % (Auto) 0.7, Absolute Neuts (auto) 2.6, Absolute Lymphs (auto) 1.30, Nucleated RBC % 0, Sodium 144, Potassium 3.5, Chloride 108 H, Carbon Dioxide 33.0 H, Anion Gap 3 L, BUN 22 H, Creatinine 1.15 H, Estim Creat Clear Calc 52.60, Est GFR (MDRD) Af Amer 62, Est GFR (MDRD) Non- Af 51 L, BUN/Creatinine Ratio 19.1, Glucose 137 H, Calcium 8.1 L, Magnesium 1.7, Total Bilirubin 0.40, AST 14 L, ALT 11 L, Alkaline Phosphatase 163 H, Total Protein 5.1 L, Albumin 2.1 L, Globulin 3.0, Albumin/Globulin Ratio 0.7 L Micro: Microbiology 07/29/23 19:40 Urine, Clean Catch Urine Culture - Preliminary Presumptive E. coli 07/29/23 18:30 Mucosa - Nasopharyngeal SARS-CoV-2, Influenza & RSV (PCR) - Final Radiography Diagnostic Testing: Radiology Impression Echocardiogram 07/30/23 05:55 Interpretation Summary The estimated ejection fraction is 40-45 %. Stage 2 diastolic dysfunction. Mild (1+) mitral valve insufficiency. Mild to moderate (1-2+) tricuspid valve insufficiency. Moderate pulmonary hypertension. Aortic sclerosis, no stenosis. Small pericardial effusion. There are no echocardiographic indications of cardiac tamponade. Ordering Physician: Jeff Cartagena Referring Physician: Trudy Ordaz Performed By: Deirdre De La Fuente, ELISA Physical Exam Narrative Physical Examination: General: Awake, alert, oriented x 3 and cooperative, seated upright in PCU bed, notes she slept well and is feeling improved. Skin: Normal color, normal turgor, no icterus, no cyanosis. HEENT: AT/NC, EOMI, PERRLA, MMM. Lungs: Diminished, greater bases, improved effort, no rales, rhonchi or wheezing, off oxygen currently. Heart: Regular rate and rhythm; no gallop, rub audible. Abdomen: Soft, overweight, NTTP, no marked distention, distant bowel sounds. Extremities: No cyanosis, no clubbing, no marked peripheral edema. Neurological: Patient awake, alert, oriented as noted, cognitive function intact; pupils equally reactive to light and accommodation, cranial nerves grossly normal, moving all 4 extremities, no focal deficits, strength improved, mildly globally decreased. Psychiatric: Affect appears rested, no acute evidence of depressive or anxiety feelings. Assessment & Plan Assessment/Plan (1) CHF exacerbation: PLAN: Plan The patient is a 57 y/o F w/ PMHx: CKD stage III unclear subtype, Overweight, Anxiety and Depression/Bipolar disorder, Seizure disorder, Chronic anemia, Diabetes mellitus type II who presents to the [facility] ED on 07/29/23 with history of 3 weeks of progressively worsening fatigue, malaise, persistent dry cough, increasing edema with lower extremity swelling and dyspnea worsening with exertion with dizziness with standing with on day of presentation episode similarly of upon standing significant lightheadedness and dizziness with syncopal event coming to just seconds later which has happened previously. 1. Acute Hypoxia secondary to Acute Decompensated HFpEF with associated recurrent syncope suspected orthostatic in addition to incidentally noted pericardial effusion as well as pleural effusions: ED evaluation included CXR with evidence edema and pleural effusions, cardiac enlargement, CT brain with chronic involutional changes, CT chest filtrates or edema and pleural effusions, pericardial effusion. Admitted to PCU, maintained on cardiac telemetry, enzymes 50 -> 59 -> 47, will continue to monitor I/Os, continue medical therapy w/ aspirin, statin, losartan, metoprolol, initiated on spironolactone, initiated upon presentation and continued on IV Lasix. Most recent ECHO 07/2020 w/ EF 60% stage I diastolic dysfunction, PASP 30 mmHg, mild TR with repeat performed, 07/30/23 ECHO w/ EF 40 to 45%, stage II diastolic dysfunction, mild MVI, mild to moderate TBI, moderate pulmonary hypertension, aortic sclerosis with no stenosis, small pericardial effusion with no evidence of tamponade. Magnesium 1.5 with supplementation administered, 07/31/23 Mag 1.7, additional given, repeat 08/01/23. TSH 2.50. FLP with TG 126, total cholesterol 122, LDL 54, VLDL 25, HDL 43. Placed snug violet wraps. Syncopal events we will continue patient home fludrocortisone regimen. CT imaging upon presentation with also noted LLL consolidation, felt possibly more related with atelectasis and her effusions as no WBC elevation, afebrile, no recent productive cough. Procalcitonin normal 0.09. 07/29/23 weight 176 lb 5 ounces-->07/31/23 weight 167 lb 12 ounces. PT/OT/case management for discharge planning with plan for outpatient physical and Occupational Therapy. 07/31/2023 oxygenation ambulatory trial with necessity for 2 L nasal cannula with activities patient dropped to 87-88% but improved to 93% with 2 L nasal cannula. Patient is ambulatory in home and in the community and requires home oxygen with portability. Given initiation on diuretic therapy requested that patient have repeat basic metabolic panel and follow-up with primary care physician. 2. Acute Urinary Tract Infection RULED OUT, noted only presumptive E. Coli 1,000-10,000: UA upon ED evaluation remarkable; however, UCx w/ Presumptive E. coli w/ only 1000-10,000 CFU/mL. Will d/c IV rocephin. 3. Hypokalemia: Admission K+ 3.3 magnesium 1.5, both potassium and magnesium supplemented, repeat level 07/30/2023 3.0, additional supplementation administered, 07/31/23 K+ 3.5. 4. Hypomagnesemia: Magnesium level obtained 1.5, IV supplementation ordered, 07/31/23 Mag 1.7, additional given, repeat level in AM. 5. Incidentally noted HSM: CT abdomen and pelvis with evidence of hepatosplenomegaly, ascites, CMP w/ T. bili 0.70, AST/ALT 15/12, alk phos 215, Coags normal upon presentation. Last CT imaging noted in the system 2018 and at that time there is no demonstrated hepatosplenomegaly. Will need to have patient closely follow-up with gastroenterology for further evaluation. 6. Chronic Disease Stage III, unclear subtype per history and GFR recent trending: Admission BUN/Cr 21/1.04, baseline renal function 0.9-1.3, 07/31/23 BUN/Cr 22/1.15, repeat BMP in AM. 7. Diabetes mellitus type II with chronic neuropathy: Hold oral home regimen, continue home insulin regimen, ADA diet, accu checks w/ ISS, continue home gabapentin regimen, hemoglobin A1c pending. 8. Chronic normocytic anemia: Admission hemoglobin 12.8 however baseline primarily 10-11, administered IV Lasix overnight as noted, repeat 07/30/2023 hemoglobin 11.4-->07/31/23 Hgb 9.9, but has of note been on lasix regimen, continue to trend. 9. Anxiety and depression/bipolar disorder: We will continue patient home sertraline and trazodone regimen, monitoring QTc upon presentation. 10. Seizure disorder: We will continue patient home Keppra regimen, previous hospitalization 06/2023 with EEG demonstrating no focal lateralized or epileptiform abnormalities at that time however of note. 11. Hypertension: Continue home regimen including metoprolol, losartan, IV L asix as noted. Previous admission with similar syncopal event with orthostasis on fludrocortisone regimen with hydrochlorothiazide discontinued at that time. Given heart failure representation as noted spironolactone also no added and therefore we will continue to closely monitor BP. PRN hydralazine. 12. Hyperlipidemia: Continue home statin regimen. AM FLP obtained as noted above. 13. Overweight: Weight loss and lifestyle changes encouraged. 14. GERD: We will continue patient on PPI. 15. DVT prophylaxis: Lovenox. Charges/Coding Visit Charges Inpatient E&M: 74071 Subs Hosp L2
[2023-07-31] MEDS: Gabapentin 100 MG Capsule PO ×2 (07:05→14:05)
[2023-07-31] MEDS: Benztropine Mesylate 0.5 MG TABLET 1 MG PO ×2 (07:06→14:05)
[2023-07-31] MEDS: Benzonatate 100 MG Capsule 200 MG PO ×2 (07:06→14:04)
[2023-07-31 07:28] LABS: Bedside Glucose 136 mg/dL (74-106)
--- NOTE | 2023-07-31 09:57 | CASEMGMT ---
Green sheet on chart for pt O2 potential needs. Pt updated that we were unable to get an accepting agency for HHC. Rx for OP given and educated on how to set up. Pt is agreeable to this plan and states understanding.
[2023-07-31 11:32] VITALS: BP 177/97; PULSE 81; RESP 16; TEMP 36.6; O2SAT 94
--- NOTE | 2023-07-31 11:40 | PCM.DC.SUM ---
Providers Date of Admission: 07/29/23 Date of Discharge: 07/31/23 Primary Care Physician: Dr. Trudy Ordaz MD Reason For Visit: SOB, CHF, SYNCOPE Diagnosis Discharge Diagnosis (1) CHF exacerbation: Status: Chronic Code(s): I50.9 - Heart failure, unspecified Plan: DISCHARGE DIAGNOSES: 1. Acute Hypoxia secondary to Acute Decompensated HFpEF with associated recurrent syncope suspected orthostatic with Underlying Chronic Orthostasis disease in addition to incidentally noted pericardial effusion as well as pleural effusions 2. Acute Urinary Tract Infection RULED OUT, noted only presumptive E. Coli 1,000-10,000 3. Hypokalemia 4. Hypomagnesemia 5. Incidentally noted HSM, unclear etiology 6. Chronic Disease Stage III, unclear subtype per history and GFR recent trending 7. Diabetes mellitus type II with chronic neuropathy 8. Chronic normocytic anemia 9. Anxiety and depression/bipolar disorder 10. Seizure disorder 11. Hypertension 12. Hyperlipidemia 13. Overweight 14. GERD Medications at Discharge Home Medications albuterol sulfate 2.5 mg/3 mL (0.083 %) solution for nebulization 2.5 mg (3 mL) inhalation Q4H PRN shortness of breath or wheezing #180 mL 05/03/19 fludrocortisone 0.1 mg tablet See Rx Instructions .Route .COMPLEX #30 tabs 11/09/22 benzonatate 100 mg capsule 100 mg PO TID #30 caps 06/18/23 benztropine 1 mg tablet 1 mg PO TID 06/18/23 clotrimazole 1 % topical cream 1 applic topical BID 06/18/23 gabapentin 100 mg capsule See Rx Instructions .Route .COMPLEX 06/18/23 lidocaine 5 % topical patch 1 patch topical QHS 06/18/23 lurasidone 120 mg tablet 120 mg PO DAILY 06/18/23 ondansetron HCl 4 mg tablet 4 mg PO Q6H PRN nausea and vomiting 06/18/23 prazosin 1 mg capsule 3 mg PO QHS 06/18/23 trazodone 50 mg tablet 50 mg PO QHS 06/18/23 walker #1 ea 06/27/23 compress.stocking,knee,reg,lrg #2 ea 07/01/23 blood sugar diagnostic (FreeStyle Lite Strips) #100 ea 07/09/23 blood-glucose meter (FreeStyle Lite Meter kit) #1 ea 07/09/23 lancets 28 gauge (FreeStyle Lancets) #200 ea 07/09/23 pen needle, diabetic 31 gauge x 3/16 (Comfort EZ Pen [place]) #100 ea 07/09/23 albuterol sulfate 90 mcg/actuation aerosol inhaler (ProAir HFA) 1 - 2 puff inhalation Q6H PRN shortness of breath or wheezing #8.5 grams 07/20/23 atorvastatin 40 mg tablet 40 mg PO QHS cholesterol #90 tabs 07/20/23 folic acid 1 mg tablet 1 mg PO DAILY@0800 supplement #90 tabs 07/20/23 losartan 25 mg tablet 25 mg PO DAILY 90 days #90 tabs 07/20/23 oxybutynin chloride 10 mg tablet,extended release 24 hr 10 mg PO DAILY #90 tabs 07/20/23 pantoprazole 40 mg tablet,delayed release 40 mg PO DAILY GERD #90 tabs 07/20/23 sertraline 50 mg tablet 50 mg PO DAILY depression #90 tabs 07/20/23 coenzyme Q10 100 mg capsule (Co Q-10) 200 mg PO DAILY 07/29/23 aspirin 81 mg chewable tablet 81 mg PO BREAKFAST 30 days #30 tabs 07/31/23 furosemide 40 mg tablet 40 mg PO DAILY 30 days #30 tabs 07/31/23 metoprolol tartrate 25 mg tablet 12.5 mg (1/2 x 25 mg) PO BID 30 days #30 tabs 07/31/23 potassium chloride 20 mEq tablet,extended release 20 meq PO BID 30 days #60 tabs 07/31/23 spironolactone 25 mg tablet 12.5 mg (1/2 x 25 mg) PO DAILY 30 days #15 tabs 07/31/23 Hospital Course Operations None Procedures 2-D Echocardiogram and EKG Summary of Care Provided Minutes Spent on Discharge: 35 Hospital Course: The patient is a 57 y/o F w/ PMHx: CKD stage III unclear subtype, Overweight, Anxiety and Depression/Bipolar disorder, Seizure disorder, Chronic anemia, Diabetes mellitus type II who presented to the [facility] ED on 07/29/23 with history of 3 weeks of progressively worsening fatigue, malaise, persistent dry cough, increasing edema with lower extremity swelling and dyspnea worsening with exertion with dizziness with standing with on day of presentation episode similarly of upon standing significant lightheadedness and dizziness with syncopal event coming to just seconds later which has happened previously. ED evaluation included CXR with evidence edema and pleural effusions, cardiac enlargement, CT brain with chronic involutional changes, CT chest filtrates or edema and pleural effusions, pericardial effusion. Admitted to PCU, maintained on cardiac telemetry, enzymes 50 -> 59 -> 47, will continue to monitor I/Os, continue medical therapy w/ aspirin, statin, losartan, metoprolol, initiated on spironolactone, initiated upon presentation and continued on IV Lasix. Most recent ECHO 07/2020 w/ EF 60% stage I diastolic dysfunction, PASP 30 mmHg, mild TR with repeat performed, 07/30/23 ECHO w/ EF 40 to 45%, stage II diastolic dysfunction, mild MVI, mild to moderate TBI, moderate pulmonary hypertension, aortic sclerosis with no stenosis, small pericardial effusion with no evidence of tamponade. Magnesium 1.5 with supplementation administered, 07/31/23 Mag 1.7, additional given, repeat 08/01/23. TSH 2.50. FLP with TG 126, total cholesterol 122, LDL 54, VLDL 25, HDL 43. Placed snug malia wraps. UA upon ED evaluation remarkable; however, UCx w/ Presumptive E. coli w/ only 1000-10,000 CFU/mL thus d/c IV rocephin. Continued patient home fludrocortisone regimen. CT imaging upon presentation with also noted LLL consolidation, felt possibly more related with atelectasis and her effusions as no WBC elevation, afebrile, no recent productive cough. Procalcitonin normal 0.09. 07/29/23 weight 176 lb 5 ounces-->07/31/23 weight 167 lb 12 ounces. Admission K+ 3.3 magnesium 1.5, both potassium and magnesium supplemented, repeat level 07/30/2023 3.0, additional supplementation administered, 07/31/23 K+ 3.5. Magnesium level obtained 1.5, IV supplementation ordered, 07/31/23 Mag 1.7, additional given. CT abdomen and pelvis with evidence of hepatosplenomegaly, ascites, CMP w/ T. bili 0.70, AST/ALT 15/12, alk phos 215, Coags normal upon presentation. Last CT imaging noted in the system 2018 and at that time there is no demonstrated hepatosplenomegaly. Requested gastroenterology follow-up outpatient for further evaluation. Admission BUN/Cr 21/1.04, baseline renal function 0.9-1.3, 07/31/23 BUN/Cr 22/1.15, repeat BMP in AM. Admission hemoglobin 12.8 however baseline primarily 10-11, administered IV Lasix of note during admission, repeat 07/30/2023 hemoglobin 11.4-->07/31/23 Hgb 9.9, thus encouraged continued outpatient assessment. 07/31/2023 oxygenation ambulatory trial with necessity for 2 L nasal cannula with activities patient dropped to 87-88% but improved to 93% with 2 L nasal cannula. Patient is ambulatory in home and in the community and requires home oxygen with portability. Given initiation on diuretic therapy requested that patient have repeat basic metabolic panel and follow-up with primary care physician. Given clinical improvement patient discharged to home with follow-up as noted. Weight / BMI Weight Weight: 167 lb 12.348 oz Body Mass Index (BMI) 28.8 ABG / Lab / Microbiology Data 07/31/23 05:40 07/31/23 05:40 Laboratory: Laboratory Results - last 24 hr 07/30/23 08:25: Procalcitonin 0.09 07/30/23 11:43: POC Glucose 119 H 07/30/23 16:16: POC Glucose 135 H 07/30/23 23:08: POC Glucose 143 H 07/31/23 05:40: WBC 4.5, RBC 3.49 L, Hgb 9.9 L, Hct 31.2 L, MCV 89.4, MCH 28.4, MCHC 31.7 L, RDW Std Deviation 45.1 H, RDW Coeff of Emery 14.1, Plt Count 175, MPV 9.1, Immature Gran % (Auto) 0.400, Neut % (Auto) 57.5, Lymph % (Auto) 29.0, Josephine % (Auto) 6.2, Eos % (Auto) 6.2 H, Baso % (Auto) 0.7, Absolute Neuts (auto) 2.6, Absolute Lymphs (auto) 1.30, Nucleated RBC % 0, Sodium 144, Potassium 3.5, Chloride 108 H, Carbon Dioxide 33.0 H, Anion Gap 3 L, BUN 22 H, Creatinine 1.15 H, Estim Creat Clear Calc 52.60, Est GFR (MDRD) Af Amer 62, Est GFR (MDRD) Non-Af 51 L, BUN/Creatinine Ratio 19.1, Glucose 137 H, Calcium 8.1 L, Magnesium 1.7, Total Bilirubin 0.40, AST 14 L, ALT 11 L, Alkaline Phosphatase 163 H, Total Protein 5.1 L, Albumin 2.1 L, Globulin 3.0, Albumin/Globulin Ratio 0.7 L 07/31/23 07:04: POC Glucose 136 H Microbiology: Microbiology 07/29/23 19:40 Urine, Clean Catch Urine Culture - Final Presumptive E. coli 07/29/23 18:30 Mucosa - Nasopharyngeal SARS-CoV-2, Influenza & RSV (PCR) - Final Radiography Diagnostic Testing: Radiology Impression Echocardiogram 07/30/23 05:55 Interpretation Summary The estimated ejection fraction is 40-45 %. Stage 2 diastolic dysfunction. Mild (1+) mitral valve insufficiency. Mild to moderate (1-2+) tricuspid valve insufficiency. Moderate pulmonary hypertension. Aortic sclerosis, no stenosis. Small pericardial effusion. There are no echocardiographic indications of cardiac tamponade. Ordering Physician: Jeff Cartagena Referring Physician: Trudy Ordaz Performed By: Deirdre De La Fuente NATI D/C Instructions Discharge Diet: Low fat / Low cholesterol and - (Recommend 2,000 cc fluid restriction continuation until re-evaluation by cardiology.) May resume sexual activity in: 10-14 days Weight Bearing Status: Weight bearing as tolerated Call your doctor if you observe: Fever of 101 or Higher, Numbness or Tingling, Inability to urinate, Shortness of breath, Dizziness, Swelling in the ankles, Chest pain, Increased palpitations (irregular heartbeat), Calf discomfort and Uncontrolled pain Meaningful Use Info Meaningful Use Diagnoses (Choose all that apply): CHF CHF MALIA/ARB ordered at discharge?: Yes Documented LVEF (%): 40 Discharge Plan Admission Admit Date/Time: 07/29/23 19:53 Primary Reason for Your Visit: Heart Failure Exacerbation, Hypoxia, Syncopal event Attending Provider: Kristina Israel Primary Care Provider: Trudy Ordaz Consulting Providers: Jeff Cartagena Instructions Patient Instructions: Heart Failure Flare Up Signs, Heart Failure Make Changes Diet, Heart Failure Dc, Heart Failure Care, Heart Failure Additional Instructions / Restrictions: ADDITIONAL DISCHARGE INFORMATION/REVIEW AND PLAN OF CARE: 1. Acute Hypoxia (Low oxygen) secondary to Acute Decompensated HFcombinedEF (Heart Failure flare) with associated recurrent syncope (fainting episode) suspected orthostatic: --CXR with evidence of heart failure --CT brain with no acute findings --CT chest with evidence of overload and small amont of fluid around the heart --Cardiac enzymes enzymes 50 -> 59 -> 47 (improved) --Maintained on medical therapy including aspirin, statin, losartan, metoprolol, spironolactone, initially IV lasix transitioned to oral all of which were continued at discharge. --07/30/23 (US of the heart) ECHO w/ EF 40 to 45%, stage II diastolic dysfunction, mild MVI, mild to moderate TBI, moderate pulmonary hypertension, aortic sclerosis with no stenosis, small pericardial effusion with no evidence of tamponade. --07/29/23 weight 176 lb 5 ounces-->07/31/23 weight 167 lb 12 ounces. --Please continue to weight your self daily and if you increase by 5 lbs or more immediately call the cardiology office. They may have you take an extra lasix dose. Please continue to maintain appropriate low sodium diet as discussed. --Please have repeat basic metabolic panel to recheck your kidney function and make sure your potassium level is appropriate as you were continued on potassium supplementation but it was increased to twice daily in the setting of also starting lasix. 2. Incidentally noted enlargement of your liver and spleen: --CT abdomen and pelvis with evidence of hepatosplenomegaly (enlargement) with fluid (normal in 2018). --Liver functions were not severely altered and your labs relating to thinness of the blood were normal. --We have asked that you follow-up with gastroenterology for further evaluation at discharge to be cautious. Discharge Orders/Prescriptions Prescriptions: New spironolactone 25 mg Tablet 12.5 mg PO DAILY 30 Days Qty: 15 0RF furosemide 40 mg Tablet 40 mg PO DAILY 30 Days Qty: 30 0RF aspirin 81 mg Tablet,Chewable 81 mg PO BREAKFAST 30 Days Qty: 30 0RF metoprolol tartrate 25 mg Tablet 12.5 mg PO BID 30 Days Qty: 30 0RF Continued albuterol sulfate 2.5 mg /3 mL (0.083 %) solution for nebulization 2.5 mg INHALATION Q4H PRN (Reason: shortness of breath or wheezing) Qty: 180 3RF prazosin 1 mg capsule 3 mg PO QHS lidocaine 5 % adhesive patch,medicated 1 patch topical QHS Rx Instructions: leave on most painful area for up to 12 hrs benztropine 1 mg tablet 1 mg PO TID trazodone 50 mg tablet 50 mg PO QHS ondansetron HCl 4 mg tablet 4 mg PO Q6H PRN (Reason: nausea and vomiting) lurasidone 120 mg tablet 120 mg PO DAILY Rx Instructions: must administer with food (at least 350 calories) gabapentin 100 mg capsule See Rx Instructions .ROUTE .COMPLEX Dose Instruction: TAKE 1 CAPSULE BY MOUTH IN THE MORNING and 2 CAPSULES AT BEDTIME for nerve pain Rx Instructions: TAKE 1 CAPSULE BY MOUTH IN THE MORNING AND AFTERNOON; and 2 CAPSULES AT BEDTIME for nerve pain clotrimazole 1 % cream 1 applic topical BID benzonatate 100 mg capsule 100 mg PO TID Qty: 30 0RF coenzyme Q10 [Co Q-10] 100 mg capsule 200 mg PO DAILY fludrocortisone 0.1 mg tablet See Rx Instructions .ROUTE .COMPLEX Qty: 30 12RF Dose Instruction: TAKE 1 TABLET BY MOUTH DAILY at 8 am. Rx Instructions: TAKE 1 TABLET BY MOUTH DAILY at 8 am. (DME) walker Misc See Rx Instructions .Route Qty: 1 0RF Rx Instructions: To be used during ambulation (DME) compress.stocking,knee,reg,lrg Misc See Rx Instructions .MEDSUPPLY Qty: 2 1RF Rx Instructions: wear daily for venous insufficiency 20-30 mmHg (DME) lancets [FreeStyle Lancets] 28 gauge misc See Rx Instructions .MEDSUPPLY Qty: 200 3RF Rx Instructions: check blood glucose 3x daily for type 2 DM (DME) pen needle, diabetic [Comfort EZ Pen [place]] 31 gauge x 3/16 needle See Rx Instructions .ROUTE .MEDSUPPLY Qty: 100 1RF Rx Instructions: uSE TO INJECT INSULIN 4 TIMES DAILY UNDER THE SKIN DX DIABETES E11.9 (DME) blood-glucose meter [FreeStyle Lite Meter] Kit See Rx Instructions .MEDSUPPLY Qty: 1 0RF Rx Instructions: As directed, check blood glucose 3x daily for type 2 DM (DME) FreeStyle Lite Strips Strip See Rx Instructions .MEDSUPPLY Qty: 100 3RF Rx Instructions: check blood glucose 3x daily for type 2 DM albuterol sulfate [ProAir HFA] 90 mcg/actuation HFA aerosol inhaler 1 - 2 puff INHALATION Q6H PRN (Reason: shortness of breath or wheezing) Qty: 8.5 1RF atorvastatin 40 mg tablet 40 mg PO QHS Qty: 90 1RF folic acid 1 mg tablet 1 mg PO DAILY@0800 Qty: 90 1RF losartan 25 mg tablet 25 mg PO DAILY 90 Days Qty: 90 1RF oxybutynin chloride 10 mg tablet extended release 24hr 10 mg PO DAILY Qty: 90 0RF pantoprazole 40 mg tablet,delayed release (DR/EC) 40 mg PO DAILY Qty: 90 1RF sertraline 50 mg tablet 50 mg PO DAILY Qty: 90 1RF Changed potassium chloride 20 mEq tablet extended release 20 meq PO BID 30 Days Qty: 60 0RF Discontinued ibuprofen 800 mg tablet 800 mg PO Q8H PRN (Reason: pain) Qty: 90 0RF Referrals / Follow Up: Trudy Ordaz MD [Primary Care Provider] - (Follow-up within 3-5 days to review admission.) Jeff Cartagena MD [Med Staff - Active Staff] - (Please follow-up within first open visit for ongoing assessment of your enlarged liver.) Carmen Sethi PA [Med Staff - Adv Practice Prof] - (Please follow-up with Cardiology in 1-2 weeks for re-evaluation.) Disposition Disposition (needs filled in before D/C Order can be placed): Home Health Service Charges/Coding Visit Charges Inpatient E&M: 40781 Disch Hosp >30min
[2023-07-31 11:41] VITALS: O2SAT 88
[2023-07-31 11:42] VITALS: O2SAT 88; O2SAT 93; O2SAT 96
[2023-07-31] MEDS: Magnesium Sulfate 2 GM in Dextrose 5%-Water (100mL Bag) 100 ML IV (11:43)
[2023-07-31] MEDS: Folic Acid 1 MG Tablet PO (11:47)
[2023-07-31] MEDS: Potassium Chloride Oral Tablet 20 MEQ PO (11:47)
[2023-07-31] MEDS: Fludrocortisone Acetate 0.1 MG Tablet PO (11:47)
[2023-07-31] MEDS: Aspirin 81 MG TAB.CHEW PO (11:47)
[2023-07-31] MEDS: Spironolactone 25 MG Tablet 12.5 MG PO (11:47)
[2023-07-31] MEDS: Losartan Potassium 25 MG Tablet PO (11:48)
[2023-07-31 11:49] VITALS: BP 177/97; PULSE 81
[2023-07-31] MEDS: Furosemide 40 MG Tablet PO (11:49)
[2023-07-31] MEDS: Metoprolol Tartrate 25 MG Tablet 12.5 MG PO (11:49)
[2023-07-31] MEDS: Tolterodine Tartrate 2 MG CAP.SA PO (11:49)
[2023-07-31] MEDS: Enoxaparin 40 MG/0.4 ML Syringe SC (11:50)
[2023-07-31] MEDS: Pantoprazole Sodium 40 MG Tablet PO (11:50)
[2023-07-31] MEDS: Sertraline 50 MG Tablet PO (11:51)
[2023-07-31 13:58] VITALS: BP 152/81; PULSE 69; RESP 16; TEMP 36.7; O2SAT 95
[2023-07-31 14:48] LABS: Bedside Glucose 117 mg/dL (74-106)
== END 2023-07-31 14:43 | disposition home or self-care (01) | DRG 194 ==
LOC: ED 20:12 → PCU 07-30 06:44
PROVIDERS: Admitting Provider Internal Medicine; Emergency Provider Emergency Medicine; PCP Internal Medicine; Visit Provider Family Medicine
DX: I13.0 Hypertensive heart and chronic kidney disease with heart failure and stage 1 through stage 4 chronic kidney disease, or unspecified chronic kidney disease (principal); I27.20 Pulmonary hypertension, unspecified; I50.33 Acute on chronic diastolic (congestive) heart failure; F31.9 Bipolar disorder, unspecified; E11.22 Type 2 diabetes mellitus with diabetic chronic kidney disease; E11.40 Type 2 diabetes mellitus with diabetic neuropathy, unspecified; I70.0 Atherosclerosis of aorta; G40.909 Epilepsy, unspecified, not intractable, without status epilepticus; N18.30 Chronic kidney disease, stage 3 unspecified; I31.39 Other pericardial effusion (noninflammatory); R18.8 Other ascites; R16.2 Hepatomegaly with splenomegaly, not elsewhere classified; D64.9 Anemia, unspecified; I95.1 Orthostatic hypotension; E87.6 Hypokalemia; F41.9 Anxiety disorder, unspecified; E78.5 Hyperlipidemia, unspecified; K21.9 Gastro-esophageal reflux disease without esophagitis; E83.42 Hypomagnesemia; R09.02 Hypoxemia; E66.3 Overweight; Z90.49 Acquired absence of other specified parts of digestive tract; R82.81 Pyuria; Z68.29 Body mass index [BMI] 29.0-29.9, adult; Z87.891 Personal history of nicotine dependence
CPT/HCPCS: 36415; 70450; 71045; 71250; 74176; 80048; 80053; 80061; 81001; 82962; 83036; 83690; 83735; 83880; 84145; 84443; 84484; 85025; 85610; 87040; 87086; 87088; 87186; 87631; 93005; 93306; 94668; 96365; 96372; 96375; 96376; 97162; 97166; 97802; 99221; 99252; 99285; J7030; J7040; J7050; A4216; G0378; G0463; J1940; J2405

== ENCOUNTER 2023-08-04 17:20 | Emergency (ER) | payer MEDICAID, SELFPAY ==
[2023-08-04 17:21] VITALS: BP 181/109; PULSE 93; RESP 16; TEMP 37; O2SAT 94; BMI 27.7
--- NOTE | 2023-08-04 18:10 | EKG12_ITS ---
Test Reason : DYSRHYTHMIA Blood Pressure : / mmHG Vent. Rate : 087 BPM Atrial Rate : 087 BPM P-R Int : 168 ms QRS Dur : 070 ms QT Int : 406 ms P-R-T Axes : 044 000 014 degrees QTc Int : 488 ms Normal sinus rhythm with sinus arrhythmia Nonspecific T wave abnormality Abnormal ECG Confirmed by Ryan Kelley ([id number]), digital editor DIDIER TRIPLETT ([id number]) on 08/05/2023 8:06:03 AM Referred By: JOAQUIM Confirmed By:Ryan Kelley
[2023-08-04 18:24] LABS: Basophil# 0.03 X10^3/uL; Basophil% 0.4 % (0-1); Eosinophil# 0.15 X10^3/uL; Eosinophils% 1.8 % (0-5); Hematocrit 39.1 % (37-47); Hemoglobin 12.8 g/dL (12.0-15.0); Lymphocyte % 19.3 % (19-41); Mean Corp Hgb Conc 32.7 g/dL (32-36); Mean Corpuscular Hgb 28.8 pg (27.0-32.0); Mean Corpuscular Volume 87.9 fL (81-99); Mean Platelet Vol. 9.8 fl (6.2-12.0); Monocyte# 0.49 X10^3/uL; Monocyte% 5.9 % (0-10); NRBC Flagged by Analyzer 0 % (0-5); Neutrophil # 6.01 X10^3/uL (2.7-7.7); Neutrophil % 72.2 % (47-70); Platelet Count 263 K/mm3 (150-450); RBC Distribution Width CV 14.4 % (11.6-14.6); RBC Distribution Width SD 45.4 fl (35.1-43.9); Red Blood Count 4.45 M/mm3 (4.2-5.4); White Blood Count 8.3 K/mm3 (4.4-11.0)
--- NOTE | 2023-08-04 18:35 | RAD_ITS ---
INDICATION: chest pain EXAMINATION/TECHNIQUE: X-RAY - XR Chest 1 View COMPARISON: July 29, 2023 FINDINGS: LINES/DEVICES: None. LUNGS: Bilateral pleural effusions with basilar infiltrates, right more than left. No pneumothorax. MEDIASTINUM AND CARDIOVASCULAR STRUCTURES: Cardiac silhouette is enlarged. Central airways and mediastinal contour are unremarkable. BONES AND SOFT TISSUES: Unremarkable. RAD/Chest 1 View (Portable) IMPRESSION: Bilateral pleural effusions with basilar infiltrates, right more than left. Electronically Signed: Froylan Jimenez DO at 18:49 EST Reading Location ID and State: [facility] / [place] Tel [phone], Service support ,
[2023-08-04 18:42] LABS: Anion Gap 9 (5-15); BUN 19 mg/dL (7-18); BUN/Creat Ratio 17.4 RATIO (10-20); Calcium,Total 8.4 mg/dL (8.5-10.1); Chloride 106 mmol/L (98-107); Creatinine, Serum 1.09 mg/dL (0.55-1.02); EST Glomerular Filtration Rate 54 mL/min (>60); Est Glom Filt Rate - Afr Amer 66 mL/min (>60); Estimated Creatinine Clearance 54.52 ml/min; Glucose 95 mg/dL (74-106); Sodium Level 144 mmol/L (136-145); Troponin-I HS 40 pg/mL (3.0-54.0)
[2023-08-04 18:48] LABS: BNP,B-Type NATRIURETIC PEPTIDE 1559.9 pg/mL (0-100)
--- NOTE | 2023-08-04 18:57 | ED.VIS.GI ---
HPI HPI - GI History of Present Illness Chief Complaint: Nausea/Vomiting Narrative Narrative: 57-year-old female presenting with nausea, vomiting. She states she has had this when she was admitted recently for this. Patient states that ultimately she was discharged home and continued to have nausea and vomiting. Her states that she was sent home with Zofran however she has not been taking this. She is not sure why. states that he puts her pills together for but she is not taking them correctly. She has not had a fever at home. She states that she is short of breath but she is only short of breath there is no new components to it. [facility] Medical History Abnormal thyroid function test ZOEY (acute kidney injury) Anemia Anxiety Aspiration pneumonia Back problem Bilateral tinnitus Chronic ulcer of left foot with fat layer exposed CKD (chronic kidney disease), stage III Depression with anxiety Dermatitis Diabetic foot ulcer Eczema Essential hypertension Frequent headaches GERD (gastroesophageal reflux disease) H/O emotional problems Hyperglycemia due to type 2 diabetes mellitus Hyperlipidemia Hyperosmolar non-ketotic state in patient with type 2 diabetes mellitus Hypersomnolence Hypokalemia Hypomagnesemia Kidney stones Left facial pain Lightheadedness [place] toxicity Microalbuminuria Neuropathy OAB (overactive bladder) Obesity (BMI 30-39.9) Orthostatic hypotension Polycystic ovaries Postconcussion syndrome PVD (peripheral vascular disease) Seasonal allergies Secondary pulmonary arterial hypertension Seizures Sleep concern Suicide attempt Syncope TMJ arthritis Toxic encephalopathy Type 2 diabetes mellitus Type 2 diabetes mellitus without complications Ulcer of left lower extremity with fat layer exposed Venous insufficiency Vision problems Vitamin defciency Xerosis cutis Home Medications albuterol sulfate 2.5 mg/3 mL (0.083 %) solution for nebulization 2.5 mg (3 mL) inhalation Q4H PRN shortness of breath or wheezing #180 mL 05/03/19 [Rx Last Taken Unknown] fludrocortisone 0.1 mg tablet See Rx Instructions .Route .COMPLEX #30 tabs 11/09/22 [Rx Last Taken Unknown] benztropine 1 mg tablet 1 mg PO TID 06/18/23 [History Last Taken Unknown] clotrimazole 1 % topical cream 1 applic topical BID 06/18/23 [History Last Taken Unknown] gabapentin 100 mg capsule See Rx Instructions .Route .COMPLEX 06/18/23 [History Last Taken Unknown] lidocaine 5 % topical patch 1 patch topical QHS 06/18/23 [History Last Taken Unknown] lurasidone 120 mg tablet 120 mg PO DAILY 06/18/23 [History Last Taken Unknown] ondansetron HCl 4 mg tablet 4 mg PO Q6H PRN nausea and vomiting 06/18/23 [History Last Taken Unknown] prazosin 1 mg capsule 3 mg PO QHS 06/18/23 [History Last Taken Unknown] trazodone 50 mg tablet 50 mg PO QHS 06/18/23 [History Last Taken Unknown] walker #1 ea 06/27/23 [Rx Last Taken Unknown] compress.stocking,knee,reg,lrg #2 ea 07/01/23 [Rx Last Taken Unknown] blood sugar diagnostic (FreeStyle Lite Strips) #100 ea 07/09/23 [Rx Last Taken Unknown] blood-glucose meter (FreeStyle Lite Meter kit) #1 ea 07/09/23 [Rx Last Taken Unknown] lancets 28 gauge (FreeStyle Lancets) #200 ea 07/09/23 [Rx Last Taken Unknown] pen needle, diabetic 31 gauge x 3/16 (Comfort EZ Pen [place]) #100 ea 07/09/23 [Rx Last Taken Unknown] albuterol sulfate 90 mcg/actuation aerosol inhaler (ProAir HFA) 1 - 2 puff inhalation Q6H PRN shortness of breath or wheezing #8.5 grams 07/20/23 [Rx Last Taken Unknown] atorvastatin 40 mg tablet 40 mg PO QHS cholesterol #90 tabs 07/20/23 [Rx Last Taken Unknown] folic acid 1 mg tablet 1 mg PO DAILY@0800 supplement #90 tabs 07/20/23 [Rx Last Taken Unknown] losartan 25 mg tablet 25 mg PO DAILY 90 days #90 tabs 07/20/23 [Rx Last Taken Unknown] oxybutynin chloride 10 mg tablet,extended release 24 hr 10 mg PO DAILY #90 tabs 07/20/23 [Rx Last Taken Unknown] pantoprazole 40 mg tablet,delayed release 40 mg PO DAILY GERD #90 tabs 07/20/23 [Rx Last Taken Unknown] sertraline 50 mg tablet 50 mg PO DAILY depression #90 tabs 07/20/23 [Rx Last Taken Unknown] coenzyme Q10 100 mg capsule (Co Q-10) 200 mg PO DAILY 07/29/23 [History Last Taken Unknown] aspirin 81 mg chewable tablet 81 mg PO BREAKFAST 30 days #30 tabs 07/31/23 [Rx Last Taken Unknown] furosemide 40 mg tablet 40 mg PO DAILY 30 days #30 tabs 07/31/23 [Rx Last Taken Unknown] metoprolol tartrate 25 mg tablet 12.5 mg (1/2 x 25 mg) PO BID 30 days #30 tabs 07/31/23 [Rx Last Taken Unknown] potassium chloride 20 mEq tablet,extended release 20 meq PO BID 30 days #60 tabs 07/31/23 [Rx Last Taken Unknown] spironolactone 25 mg tablet 12.5 mg (1/2 x 25 mg) PO DAILY 30 days #15 tabs 07/31/23 [Rx Last Taken Unknown] benzonatate 100 mg capsule 100 mg PO TID #30 caps 08/01/23 [Rx Last Taken Unknown] ondansetron 4 mg disintegrating tablet 4 mg PO Q8H PRN PRN Nausea #14 tabs 08/04/23 [Rx Last Taken Unknown] Allergy/AdvReac Type Severity Reaction Status Date / Time aspartame Allergy Swelling Verified 07/29/23 17:39 latex Allergy Unknown Verified 07/29/23 17:39 Penicillins Allergy Laryngospas Verified 07/29/23 17:39 ms Family History Unknown Patient was adopted Surgical History History of section History of cholecystectomy History of hip surgery Social History Smoking Status: Never smoker alcohol intake: never substance use type: does not use what type of physical activity do you participate in: walking frequency: daily duration: 30-45 minutes/day ROS ROS ED Constitutional Constitutional ED: Denies chills, fever(s) or sweats Eyes Eyes: Denies blurry vision or change in vision ENT ENT ED: Denies ear pain or sore throat Cardiovascular Cardiovascular: Denies chest pain, palpitations or racing heartbeat Respiratory/Chest Respiratory/Chest: Reports dyspnea; Denies cough or sputum Gastrointestinal Gastrointestinal: Reports nausea and vomiting; Denies abdominal pain, constipation or diarrhea Genitourinary Genitourinary ED: Denies dysuria, hematuria or urinary frequency Musculoskeletal Musculoskeletal: Denies arthralgias, myalgias or neck pain Integumentary Denies abscess, Abrasions or rash Neurologic Neurologic: Denies headache(s), paresthesias or weakness Psychiatric Psychiatric: Denies anxiety, depression, suicidal ideation or suicidal thoughts Endocrine Endocrinology: Denies polydipsia or polyuria EXAM Physical Exam Const Vital Signs: 08/04/23 17:21 08/04/23 18:25 08/04/23 19:21 Temperature 98.6 F Temperature Source Temporal Pulse Rate 93 87 Respiratory Rate 16 18 Blood Pressure 181/109 H 182/97 H Blood Pressure Mean 133 125 Pulse Ox 94 95 Oxygen Delivery Method Room Air Room Air Room Air 08/04/23 20:57 Temperature 98.2 F Temperature Source Pulse Rate 88 Respiratory Rate 24 H Blood Pressure 191/94 H Blood Pressure Mean 126 Pulse Ox 94 Oxygen Delivery Method General Appearance ED: NAD HEENT Reports moist mucous membranes normocephalic and atraumatic Eyes PERRL Resp normal respiratory effort and clear to auscultation bilaterally Cardio regular rate and regular rhythm GI non-tender Neuro CN's II-XII intact bilaterally and moves all extremities Sensorium / Orientation: alert Psych mental status grossly normal Mood & Affect: Negative for depressed MDM MDM MDM Narrative Medical decision making narrative: 57-year-old female recently admitted for nausea, vomiting, diarrhea. She initially was treated for UTI but her urine culture came back negative. She was not sent home on an antibiotic. Patient was treated for CHF and sent home. Patient states she continues to have nausea and vomiting and she is not taking the Zofran which is prescribed for her. She states she did not understand that the Zofran dissolves under her tongue. Patient has been states that he put her pills together so she can take him but he has to work that is not there all the time. Differential includes pneumonia, CHF, dehydration, anemia, electro abnormalities, UTI. CBC to obtain white blood cell count, hemoglobin, platelets. BMP to assess renal function, electrolytes, glucose. High-sensitivity troponin EKG to assess for ischemia. BNP to assess for CHF. Patient medicated with Zofran seems to help her nausea. CBC and BMP unremarkable. High-sensitivity troponin is 40. BNP 1559 which is slightly higher than previous. EKG on my interpretation shows sinus rhythm at 87 bpm outside ischemic change or ectopy. Chest x-ray on my interpretation is similar to previous chest x-ray which actually may be improving. Patient not hypoxic or tachypneic. After getting Zofran she felt much better. She passed a p.o. challenge. Given this I feel she stable to be discharged home for with her home meds. She is to take all medication as prescribed. I did refill her Zofran prescription just to make sure she had it. She took at home via meds to beds. Impression: 1. Nausea/vomiting 2. History of CHF Lab Data Attestation: I reviewed the patient's lab results. Labs: Laboratory Results - last 24 hr 08/04/23 08/04/23 17:30 19:05 WBC 8.3 RBC 4.45 Hgb 12.8 Hct 39.1 MCV 87.9 MCH 28.8 MCHC 32.7 RDW Std Deviation 45.4 H RDW Coeff of Emery 14.4 Plt Count 263 MPV 9.8 Immature Gran % (Auto) 0.400 Neut % (Auto) 72.2 H Lymph % (Auto) 19.3 [place] % (Auto) 5.9 Eos % (Auto) 1.8 Baso % (Auto) 0.4 Absolute Neuts (auto) 6.0 Absolute Lymphs (auto) 1.60 Nucleated RBC % 0 Sodium 144 Potassium 3.0 L Chloride 106 Carbon Dioxide 29.0 Anion Gap 9 BUN 19 H Creatinine 1.09 H Estim Creat Clear Calc 54.52 Est GFR (MDRD) Af Amer 66 Est GFR (MDRD) Non-Af 54 L BUN/Creatinine Ratio 17.4 Glucose 95 Calcium 8.4 L Troponin I High Sens 40 B-Natriuretic Peptide 1559.9 H Urine Color Yellow Urine Clarity Sl. Cloudy Urine pH 7.0 Ur Specific [place] 1.010 Urine Protein 500 H Urine Glucose (UA) Normal Urine Ketones 50 H Urine Occult Blood 50 H Urine Nitrite Negative Urine Bilirubin Negative Urine Urobilinogen Normal Ur Leukocyte Esterase 500 H Urine RBC 0-5 SEEN Urine WBC 50-100 SEEN Ur Squamous Epith Cells 0 SEEN Urine Bacteria RARE Urine Mucus 0 SEEN Radiography Diagnostic Testing: Clinical Impression(s) from Imaging Studies Chest X-Ray 08/04/23 18:35 IMPRESSION: Bilateral pleural effusions with basilar infiltrates, right more than left. Electronically Signed: Froylan Jimenez DO at 18:49 EST Reading Location ID and State: [facility] / [place] Tel [phone], Service support , Discharge Plan Triage Chief Complaint: Nausea/Vomiting ED Provider: Rubio Young Dx/Rx/DC Orders Instructions: ED Vomit Diarrhea [place] Adult Prescriptions: New ondansetron 4 mg tablet,disintegrating 4 mg PO Q8H PRN PRN (Reason: Nausea) Qty: 14 0RF No Action albuterol sulfate 2.5 mg /3 mL (0.083 %) solution for nebulization 2.5 mg INHALATION Q4H PRN (Reason: shortness of breath or wheezing) Qty: 180 3RF prazosin 1 mg capsule 3 mg PO QHS lidocaine 5 % adhesive patch,medicated 1 patch topical QHS Rx Instructions: leave on most painful area for up to 12 hrs benztropine 1 mg tablet 1 mg PO TID trazodone 50 mg tablet 50 mg PO QHS ondansetron HCl 4 mg tablet 4 mg PO Q6H PRN (Reason: nausea and vomiting) lurasidone 120 mg tablet 120 mg PO DAILY Rx Instructions: must administer with food (at least 350 calories) gabapentin 100 mg capsule See Rx Instructions .ROUTE .COMPLEX Dose Instruction: TAKE 1 CAPSULE BY MOUTH IN THE MORNING and 2 CAPSULES AT BEDTIME for nerve pain Rx Instructions: TAKE 1 CAPSULE BY MOUTH IN THE MORNING AND AFTERNOON; and 2 CAPSULES AT BEDTIME for nerve pain clotrimazole 1 % cream 1 applic topical BID coenzyme Q10 [Co Q-10] 100 mg capsule 200 mg PO DAILY spironolactone 25 mg Tablet 12.5 mg PO DAILY 30 Days Qty: 15 0RF furosemide 40 mg Tablet 40 mg PO DAILY 30 Days Qty: 30 0RF aspirin 81 mg Tablet,Chewable 81 mg PO BREAKFAST 30 Days Qty: 30 0RF metoprolol tartrate 25 mg Tablet 12.5 mg PO BID 30 Days Qty: 30 0RF potassium chloride 20 mEq tablet extended release 20 meq PO BID 30 Days Qty: 60 0RF fludrocortisone 0.1 mg tablet See Rx Instructions .ROUTE .COMPLEX Qty: 30 12RF Dose Instruction: TAKE 1 TABLET BY MOUTH DAILY at 8 am. Rx Instructions: TAKE 1 TABLET BY MOUTH DAILY at 8 am. (OBEY Walker See Rx Instructions .Route Qty: 1 0RF Rx Instructions: To be used during ambulation (DME) compress.stocking,knee,reg,lrg Misc See Rx Instructions .MEDSUPPLY Qty: 2 1RF Rx Instructions: wear daily for venous insufficiency 20-30 mmHg (DME) lancets [FreeStyle Lancets] 28 gauge misc See Rx Instructions .MEDSUPPLY Qty: 200 3RF Rx Instructions: check blood glucose 3x daily for type 2 DM (DME) pen needle, diabetic [Comfort EZ Pen [place]] 31 gauge x 3/16 needle See Rx Instructions .ROUTE .MEDSUPPLY Qty: 100 1RF Rx Instructions: uSE TO INJECT INSULIN 4 TIMES DAILY UNDER THE SKIN DX DIABETES E11.9 (DME) blood-glucose meter [FreeStyle Lite Meter] Kit See Rx Instructions .MEDSUPPLY Qty: 1 0RF Rx Instructions: As directed, check blood glucose 3x daily for type 2 DM (DME) FreeStyle Lite Strips Strip See Rx Instructions .MEDSUPPLY Qty: 100 3RF Rx Instructions: check blood glucose 3x daily for type 2 DM albuterol sulfate [ProAir HFA] 90 mcg/actuation HFA aerosol inhaler 1 - 2 puff INHALATION Q6H PRN (Reason: shortness of breath or wheezing) Qty: 8.5 1RF atorvastatin 40 mg tablet 40 mg PO QHS Qty: 90 1RF folic acid 1 mg tablet 1 mg PO DAILY@0800 Qty: 90 1RF losartan 25 mg tablet 25 mg PO DAILY 90 Days Qty: 90 1RF oxybutynin chloride 10 mg tablet extended release 24hr 10 mg PO DAILY Qty: 90 0RF pantoprazole 40 mg tablet,delayed release (DR/EC) 40 mg PO DAILY Qty: 90 1RF sertraline 50 mg tablet 50 mg PO DAILY Qty: 90 1RF benzonatate 100 mg capsule 100 mg PO TID Qty: 30 0RF Primary Care Provider: Trudy Ordaz Referrals: Trudy Ordaz MD [Primary Care Provider] - Disposition Disposition: Home, Self Care Discharge Date/Time: 08/04/23 21:07
[2023-08-04] MEDS: Ondansetron 4 MG/2 ML Vial IV (19:07)
[2023-08-04 19:11] LABS: Mucous, Urine 0 SEEN /hpf (<or=2+); Squamous Epithelial Cells - UA 0 SEEN /hpf (5-10)
[2023-08-04 19:15] LABS: Color, Urine Yellow (Yellow); Glucose, Dipstick Normal (Normal); Ketone-Dipstick 50 mg/dl (Negative); Leukocyte Esterase-Dipstick 500 /ul (Negative); Nitrite-Dipstick Negative (Negative); Occult Blood-Urine 50 /ul (Negative); Protein-Dipstick 500 mg/dl (Negative); Urine Bilirubin Dipstick Negative (Negative); Urine Clarity Sl. Cloudy (Clear); Urine Urobilinogen Normal (Normal)
[2023-08-04 19:21] VITALS: BP 182/97; PULSE 87; RESP 18; O2SAT 95
[2023-08-04 19:28] LABS: Red Blood Cells-Urine 0-5 SEEN /hpf (0-5); White Blood Cells 50-100 SEEN /hpf (0-5)
[2023-08-04 19:29] LABS: Bacteria RARE /hpf (None Seen)
[2023-08-04 20:57] VITALS: BP 191/94; PULSE 88; RESP 24; TEMP 36.8; O2SAT 94
== END 2023-08-04 21:07 | disposition home or self-care (01) ==
PROVIDERS: Emergency Provider Student in an Organized Health Care Education/Training Program; PCP Internal Medicine; Visit Provider Student in an Organized Health Care Education/Training Program
DX: R11.2 Nausea with vomiting, unspecified (principal); I13.0 Hypertensive heart and chronic kidney disease with heart failure and stage 1 through stage 4 chronic kidney disease, or unspecified chronic kidney disease; I50.9 Heart failure, unspecified; E11.22 Type 2 diabetes mellitus with diabetic chronic kidney disease; N18.30 Chronic kidney disease, stage 3 unspecified; E78.5 Hyperlipidemia, unspecified; Z79.899 Other long term (current) drug therapy; K21.9 Gastro-esophageal reflux disease without esophagitis; F41.8 Other specified anxiety disorders; Z79.82 Long term (current) use of aspirin; Z90.49 Acquired absence of other specified parts of digestive tract
CPT/HCPCS: 71045; 80048; 81001; 83880; 84484; 85025; 93005; 96374; 99284; A4216; J2405

== ENCOUNTER 2023-08-20 17:41 | Inpatient (IN) | payer MEDICAID, SELFPAY ==
[2023-08-20 17:41] VITALS: BP 101/68; PULSE 79; RESP 16; TEMP 36.4; O2SAT 96; BMI 22.9
--- NOTE | 2023-08-20 18:25 | EX.ED.DYSGE1 ---
HPI <JEN Rogers - Last Filed: 08/20/23 20:12> History of Present Illness Chief Complaint: Weakness Narrative Narrative: 57-year-old female with PMH of HTN, HLD, DM2, pulmonary hypertension, CKD, debility was found sleeping on the floor at home. Her left for work at 7 AM and came home at 5 PM. She was sleeping on the ground in front of her wheelchair. She seemed confused when he aroused her so he brought her in for evaluation. She had no evidence of injuries. She does not recall what happened. Since she had a hip replacement in March 2023 she did not recover well and was using a rollator but now uses a wheelchair most of the time around the house. She lays in bed most of the day. Her states she is incontinent until he gets home and she will only use the restroom if he assists her. She has had declining memory over the last few years but she seems more confused today. No blood thinners. PFSH <JEN Rogers - Last Filed: 08/20/23 20:12> PFS Medical History Abnormal thyroid function test ZOEY (acute kidney injury) Anemia Anxiety Aspiration pneumonia Back problem Bilateral tinnitus Chronic ulcer of left foot with fat layer exposed CKD (chronic kidney disease), stage III Congestive heart failure Depression with anxiety Dermatitis Diabetic foot ulcer Eczema Essential hypertension Frequent falls Frequent headaches GERD (gastroesophageal reflux disease) H/O emotional problems Hyperglycemia due to type 2 diabetes mellitus Hyperlipidemia Hyperosmolar non-ketotic state in patient with type 2 diabetes mellitus Hypersomnolence Hypokalemia Hypomagnesemia Kidney stones Left facial pain Lightheadedness [place] toxicity Microalbuminuria Neuropathy OAB (overactive bladder) Obesity (BMI 30-39.9) Orthostatic hypotension Polycystic ovaries Postconcussion syndrome PVD (peripheral vascular disease) Seasonal allergies Secondary pulmonary arterial hypertension Seizures Sleep concern Suicide attempt Syncope Syncope and collapse TMJ arthritis Toxic encephalopathy Type 2 diabetes mellitus Type 2 diabetes mellitus without complications Ulcer of left lower extremity with fat layer exposed Venous insufficiency Vision problems Vitamin defciency Xerosis cutis Home Medications albuterol sulfate 2.5 mg/3 mL (0.083 %) solution for nebulization 2.5 mg (3 mL) inhalation Q4H PRN shortness of breath or wheezing #180 mL 05/03/19 [Rx Last Taken Unknown] fludrocortisone 0.1 mg tablet See Rx Instructions .Route .COMPLEX #30 tabs 11/09/22 [Rx Last Taken Unknown] benztropine 1 mg tablet 1 mg PO TID 06/18/23 [History Last Taken Unknown] clotrimazole 1 % topical cream 1 applic topical BID 06/18/23 [History Last Taken Unknown] gabapentin 100 mg capsule See Rx Instructions .Route .COMPLEX 06/18/23 [History Last Taken Unknown] lidocaine 5 % topical patch 1 patch topical QHS 06/18/23 [History Last Taken Unknown] lurasidone 120 mg tablet 120 mg PO DAILY 06/18/23 [History Last Taken Unknown] ondansetron HCl 4 mg tablet 4 mg PO Q6H PRN nausea and vomiting 06/18/23 [History Last Taken Unknown] prazosin 1 mg capsule 3 mg PO QHS 06/18/23 [History Last Taken Unknown] trazodone 50 mg tablet 50 mg PO QHS 06/18/23 [History Last Taken Unknown] walker #1 ea 06/27/23 [Rx Last Taken Unknown] compress.stocking,knee,reg,lrg #2 ea 07/01/23 [Rx Last Taken Unknown] blood sugar diagnostic (FreeStyle Lite Strips) #100 ea 07/09/23 [Rx Last Taken Unknown] blood-glucose meter (FreeStyle Lite Meter kit) #1 ea 07/09/23 [Rx Last Taken Unknown] lancets 28 gauge (FreeStyle Lancets) #200 ea 07/09/23 [Rx Last Taken Unknown] pen needle, diabetic 31 gauge x 3/16 (Comfort EZ Pen [place]) #100 ea 07/09/23 [Rx Last Taken Unknown] albuterol sulfate 90 mcg/actuation aerosol inhaler (ProAir HFA) 1 - 2 puff inhalation Q6H PRN shortness of breath or wheezing #8.5 grams 07/20/23 [Rx Last Taken Unknown] atorvastatin 40 mg tablet 40 mg PO QHS cholesterol #90 tabs 07/20/23 [Rx Last Taken Unknown] folic acid 1 mg tablet 1 mg PO DAILY@0800 supplement #90 tabs 07/20/23 [Rx Last Taken Unknown] losartan 25 mg tablet 25 mg PO DAILY 90 days #90 tabs 07/20/23 [Rx Last Taken Unknown] oxybutynin chloride 10 mg tablet,extended release 24 hr 10 mg PO DAILY #90 tabs 07/20/23 [Rx Last Taken Unknown] pantoprazole 40 mg tablet,delayed release 40 mg PO DAILY GERD #90 tabs 07/20/23 [Rx Last Taken Unknown] sertraline 50 mg tablet 50 mg PO DAILY depression #90 tabs 07/20/23 [Rx Last Taken Unknown] coenzyme Q10 100 mg capsule (Co Q-10) 200 mg PO DAILY 07/29/23 [History Last Taken Unknown] aspirin 81 mg chewable tablet 81 mg PO BREAKFAST 30 days #30 tabs 07/31/23 [Rx Last Taken Unknown] metoprolol tartrate 25 mg tablet 12.5 mg (1/2 x 25 mg) PO BID 30 days #30 tabs 07/31/23 [Rx Last Taken Unknown] ondansetron 4 mg disintegrating tablet 4 mg PO Q8H PRN PRN Nausea #14 tabs 08/04/23 [Rx Last Taken Unknown] Allergy/AdvReac Type Severity Reaction Status Date / Time aspartame Allergy Swelling Verified 08/20/23 17:44 latex Allergy Unknown Verified 08/20/23 17:44 Penicillins Allergy Laryngospas Verified 08/20/23 17:44 ms Family History Unknown Patient was adopted Surgical History History of section History of cholecystectomy History of hip surgery Social History Smoking Status: Never smoker alcohol intake: never substance use type: does not use what type of physical activity do you participate in: walking frequency: daily duration: 30-45 minutes/day ROS <JEN Rogers - Last Filed: 08/20/23 20:12> ROS ED ROS Narrative Constitutional: Negative for fever, chills, malaise. CVS: Negative for chest pain. Respiratory: Negative for shortness of breath, cough. GI: Negative for abdominal pain, vomiting, diarrhea. : Negative for dysuria. Neuro: Negative for headache. EXAM <JEN Rogers - Last Filed: 08/20/23 20:12> Physical Exam Narrative Exam Narrative: CONST: Patient sitting in no acute distress. EYES: Normal inspection. PERRL, EOMI. HEAD: Head normocephalic atraumatic, no raccoon eyes or jolly sign, no hemotympanum, no nasal septal hematoma, no CSF otorrhea or rhinorrhea. ENT: Normal inspection, dry mucous membranes. NECK: Normal inspection. RESP: No respiratory distress, CTAB. CVS: Regular rate and rhythm, no murmur, no gallop. ABD: Soft and nontender, no guarding or rebound, nondistended. SKIN: Color normal, no rash, warm, dry, intact. EXTREMITIES: Normal appearance, no pedal edema. NEURO: Alert to self and place. Follows commands, face symmetric, moving all extremities. PSYCH: Normal affect. Const Vital Signs: 08/20/23 17:41 08/20/23 19:39 Temperature 97.6 F L Temperature Source Oral Pulse Rate 79 Respiratory Rate 16 Respiratory Pattern Normal Blood Pressure 101/68 Blood Pressure Mean 79 Pulse Ox 96 Oxygen Delivery Method Room Air <Dr. Nehemiah Kennedy DO - Last Filed: 08/20/23 22:31> Physical Exam Const Vital Signs: 08/20/23 17:41 08/20/23 19:39 Temperature 97.6 F L Temperature Source Oral Pulse Rate 79 Respiratory Rate 16 Respiratory Pattern Normal Blood Pressure 101/68 Blood Pressure Mean 79 Pulse Ox 96 Oxygen Delivery Method Room Air MDM <JEN Rogers - Last Filed: 08/20/23 20:12> [facility] Narrative Medical decision making narrative: History gathered from: Patient, 57-year-old female brought in by for evaluation for altered mental status. Found sleeping on the floor today at home when he got home from work. She is very dependent on for ADLs. She is awake and alert with stable vital signs. She is alert to self and place. On my exam she incorrectly stated her age and the year. She has no focal neurological deficits. Workup shows normal white count of 5.9, potassium 2.9, BUN 33, and creatinine 1.94. This is consistent with ZOEY his creatinine several weeks ago was 1.09. UA is positive for UTI. She was treated with IV fluids and Rocephin. CXR and CT brain showed no acute findings. Case was discussed with hospitalist for admission who also requested a urine drug screen be added on. Lab Data Attestation: I reviewed the patient's lab results. Labs: Laboratory Results - last 24 hr 08/20/23 08/20/23 18:30 18:35 WBC 5.9 RBC 4.62 Hgb 13.4 Hct 39.9 MCV 86.4 MCH 29.0 MCHC 33.6 RDW Std Deviation 43.8 RDW Coeff of Emery 14.3 Plt Count 179 MPV 10.1 Immature Gran % (Auto) 0.500 Neut % (Auto) 78.3 H Lymph % (Auto) 13.8 L [place] % (Auto) 6.2 Eos % (Auto) 0.7 Baso % (Auto) 0.5 Absolute Neuts (auto) 4.6 Absolute Lymphs (auto) 0.82 L Nucleated RBC % 0 Sodium 139 Potassium 2.9 L Chloride 98 Carbon Dioxide 36.0 H Anion Gap 5 BUN 33 H Creatinine 1.94 H Estim Creat Clear Calc 26.96 Est GFR (MDRD) Af Amer 34 L Est GFR (MDRD) Non-Af 28 L BUN/Creatinine Ratio 17.0 Glucose 126 H Calcium 8.1 L Total Bilirubin 1.30 H AST 27 ALT 16 Alkaline Phosphatase 160 H Total Protein 6.7 Albumin 2.9 L Globulin 3.8 Albumin/Globulin Ratio 0.8 L Urine Color Yellow Urine Clarity Cloudy Urine pH 8.0 Ur Specific [place] 1.010 Urine Protein 500 H Urine Glucose (UA) Normal Urine Ketones Negative Urine Occult Blood 25 H Urine Nitrite Negative Urine Bilirubin Negative Urine Urobilinogen Normal Ur Leukocyte Esterase 100 H Urine RBC 0 SEEN Urine WBC 5-10 SEEN Ur Squamous Epith Cells 0-5 SEEN Urine Bacteria 4+ Urine Mucus 0 SEEN Urine Opiates Screen NEGATIVE Urine Methadone Screen NEGATIVE Ur Barbiturates Screen NEGATIVE Ur Phencyclidine Scrn NEGATIVE Ur Amphetamines Screen NEGATIVE MDMA (Ecstasy) Screen POSITIVE H U Benzodiazepines Scrn NEGATIVE Urine Cocaine Screen NEGATIVE U Cannabinoids Screen NEGATIVE Ur Drug Screen Comment Radiography Diagnostic Testing: Clinical Impression(s) from Imaging Studies Brain CT 08/20/23 18:52 IMPRESSION: Chronic involutional changes of the brain. Electronically Signed: Adrian Guardado MD at 20:01 EST , Chest X-Ray 08/20/23 18:52 IMPRESSION: Normal x-ray examination of the chest. Electronically Signed: Adrian Guardado MD at 19:54 EST , ED attending interpretation of 1-view chest x-ray shows normal heart size, no acute infiltrate, edema, or effusion. <Dr. Nehemiah Kennedy, DO - Last Filed: 08/20/23 22:31> [facility] MDM Narrative Medical decision making narrative: History gathered from: Patient, 57-year-old female brought in by for evaluation for altered mental status. Found sleeping on the floor today at home when he got home from work. She is very dependent on for ADLs. She is awake and alert with stable vital signs. She is alert to self and place. On my exam she incorrectly stated her age and the year. She has no focal neurological deficits. Workup shows normal white count of 5.9, potassium 2.9, BUN 33, and creatinine 1.94. This is consistent with ZOEY his creatinine several weeks ago was 1.09. UA is positive for UTI. She was treated with IV fluids and Rocephin. CXR and CT brain showed no acute findings. Case was discussed with hospitalist for admission who also requested a urine drug screen be added on. Attending note: Patient seen and evaluated with transplanter orchid. I perform my own [id number] evaluation. I agree with the plan of work-up. Provide increasing confusion found on the ground 2 hours maximum per . Not at baseline history of urosepsis. Extended evaluation O x 2 during my evaluation A&O x 3. Workup possible UTI with ZOEY. Decreased mobilization due to fall right hip fracture back in March. Urine culture sent started on antibiotics. Chest x-ray 1 view interpreted myself shows no acute process. Also read by radiology. CT brain shows no acute findings. Discussed with hospitalist service for admission. Lab Data Labs: Laboratory Results - last 24 hr 08/20/23 08/20/23 18:30 18:35 WBC 5.9 RBC 4.62 Hgb 13.4 Hct 39.9 MCV 86.4 MCH 29.0 MCHC 33.6 RDW Std Deviation 43.8 RDW Coeff of [place] 14.3 Plt Count 179 MPV 10.1 Immature Gran % (Auto) 0.500 Neut % (Auto) 78.3 H Lymph % (Auto) 13.8 L [place] % (Auto) 6.2 Eos % (Auto) 0.7 Baso % (Auto) 0.5 Absolute Neuts (auto) 4.6 Absolute Lymphs (auto) 0.82 L Nucleated RBC % 0 Sodium 139 Potassium 2.9 L Chloride 98 Carbon Dioxide 36.0 H Anion Gap 5 BUN 33 H Creatinine 1.94 H Estim Creat Clear Calc 26.96 Est GFR (MDRD) Af Amer 34 L Est GFR (MDRD) Non-Af 28 L BUN/Creatinine Ratio 17.0 Glucose 126 H Calcium 8.1 L Total Bilirubin 1.30 H AST 27 ALT 16 Alkaline Phosphatase 160 H Total Protein 6.7 Albumin 2.9 L Globulin 3.8 Albumin/Globulin Ratio 0.8 L Urine Color Yellow Urine Clarity Cloudy Urine pH 8.0 Ur Specific [place] 1.010 Urine Protein 500 H Urine Glucose (UA) Normal Urine Ketones Negative Urine Occult Blood 25 H Urine Nitrite Negative Urine Bilirubin Negative Urine Urobilinogen Normal Ur Leukocyte Esterase 100 H Urine RBC 0 SEEN Urine WBC 5-10 SEEN Ur Squamous Epith Cells 0-5 SEEN Urine Bacteria 4+ Urine Mucus 0 SEEN Urine Opiates Screen NEGATIVE Urine Methadone Screen NEGATIVE Ur Barbiturates Screen NEGATIVE Ur Phencyclidine Scrn NEGATIVE Ur Amphetamines Screen NEGATIVE MDMA (Ecstasy) Screen POSITIVE H U Benzodiazepines Scrn NEGATIVE Urine Cocaine Screen NEGATIVE U Cannabinoids Screen NEGATIVE Ur Drug Screen Comment Radiography Diagnostic Testing: Clinical Impression(s) from Imaging Studies Brain CT 08/20/23 18:52 IMPRESSION: Chronic involutional changes of the brain. Electronically Signed: Adrian Guardado MD at 20:01 EST , Chest X-Ray 08/20/23 18:52 IMPRESSION: Normal x-ray examination of the chest. Electronically Signed: Adrian Guardado MD at 19:54 EST , Discharge Plan Dx/Rx/DC Orders Clinical Impression: UTI (urinary tract infection), Acute kidney injury, Acute dehydration, Altered mental status Disposition Disposition: Acute Care Hospital [facility] Discharge Date/Time: 08/20/23 21:34
[2023-08-20] MEDS: 0.9% Normal Saline (1000mL) 1,000 ML 999 ML IV (18:40)
[2023-08-20 18:47] LABS: Mucous, Urine 0 SEEN /hpf (<or=2+); Red Blood Cells-Urine 0 SEEN /hpf (0-5)
[2023-08-20 18:48] LABS: Absolute Lymphocyte Count 0.82 X10^3/uL (0.83-4.51); Absolute Neutrophil Count 4.6 X10^3/uL (2.0-7.7); Basophil# 0.03 X10^3/uL; Basophil% 0.5 % (0-1); Eosinophil# 0.04 X10^3/uL; Eosinophils% 0.7 % (0-5); Hematocrit 39.9 % (37-47); Hemoglobin 13.4 g/dL (12.0-15.0); Lymphocyte # 0.82 X10^3/ul (0.83-4.51); Lymphocyte % 13.8 % (19-41); Mean Corp Hgb Conc 33.6 g/dL (32-36); Mean Corpuscular Volume 86.4 fL (81-99); Mean Platelet Vol. 10.1 fl (6.2-12.0); Monocyte# 0.37 X10^3/uL; Monocyte% 6.2 % (0-10); NRBC Flagged by Analyzer 0 % (0-5); Neutrophil # 4.64 X10^3/uL (2.7-7.7); Neutrophil % 78.3 % (47-70); Platelet Count 179 K/mm3 (150-450); RBC Distribution Width CV 14.3 % (11.6-14.6); RBC Distribution Width SD 43.8 fl (35.1-43.9); Red Blood Count 4.62 M/mm3 (4.2-5.4); White Blood Count 5.9 K/mm3 (4.4-11.0)
[2023-08-20 18:51] LABS: Color, Urine Yellow (Yellow); Glucose, Dipstick Normal (Normal); Ketone-Dipstick Negative (Negative); Leukocyte Esterase-Dipstick 100 /ul (Negative); Nitrite-Dipstick Negative (Negative); Occult Blood-Urine 25 /ul (Negative); Protein-Dipstick 500 mg/dl (Negative); Urine Bilirubin Dipstick Negative (Negative); Urine Clarity Cloudy (Clear); Urine Urobilinogen Normal (Normal)
--- NOTE | 2023-08-20 18:52 | CT_ITS ---
STUDY: CT BRAIN WITHOUT CONTRAST REASON FOR EXAM: Female, 57 years old. altered mental status RADIATION DOSAGE (If Supplied By Facility): CTDIvol = ( 44.99 ) mGy, DLP = ( 796.11 ) mGycm TECHNIQUE: Transaxial CT imaging of the brain was performed without administration of intravenous contrast material. Individualized dose optimization techniques were used for this CT. COMPARISON: 07/29/2023 FINDINGS: Normal soft tissue structures. Normal calvarium. There is moderate cerebral atrophy with widening of the extra-axial spaces and ventricular dilatation. There are areas of decreased attenuation within the white matter tracts of the supratentorial brain, consistent with microvascular disease changes. Normal basal ganglia and thalami. Normal brainstem. Normal cerebellum. There is no intracranial hemorrhage. There are no findings of an acute ischemic infarction. Normal visualized paranasal sinuses. CT/Brain/Head without Contrast IMPRESSION: Chronic involutional changes of the brain. Electronically Signed: Adrian Guardado MD at 20:01 EST ,
--- NOTE | 2023-08-20 18:52 | RAD_ITS ---
STUDY: X-RAY CHEST REASON FOR EXAM: Female, 57 years old. weakness TECHNIQUE: Single AP portable view of the chest. COMPARISON: 08/04/2023 FINDINGS: The lungs are clear and expanded. There is no demonstrated pleural abnormality. Normal size heart. Normal mediastinum and rianna. Normal visualized pulmonary arteries. Normal visualized aortic arch and descending thoracic aorta. Normal visualized thoracic spine. Normal visualized ribs, clavicles, and shoulders. There is no demonstrated abnormality of the visualized soft tissue structures of the upper abdomen. RAD/Chest 1 View (Portable) IMPRESSION: Normal x-ray examination of the chest. Electronically Signed: Adrian Guardado MD at 19:54 EST ,
[2023-08-20 18:57] LABS: Bacteria 4+ /hpf (None Seen); Squamous Epithelial Cells - UA 0-5 SEEN /hpf (5-10); White Blood Cells 5-10 SEEN /hpf (0-5)
[2023-08-20 19:12] LABS: ALB/GLOB Ratio 0.8 RATIO (0.9-2.4); AST(SGOT) 27 U/L (15-37); Alanine Aminotransfer ALT/SGPT 16 U/L (13-56); Albumin, Serum 2.9 g/dL (3.2-5.0); Alkaline Phosphatase 160 U/L (45-117); Anion Gap 5 (5-15); BUN 33 mg/dL (7-18); Calcium,Total 8.1 mg/dL (8.5-10.1); Chloride 98 mmol/L (98-107); Creatinine, Serum 1.94 mg/dL (0.55-1.02); EST Glomerular Filtration Rate 28 mL/min (>60); Est Glom Filt Rate - Afr Amer 34 mL/min (>60); Estimated Creatinine Clearance 26.96 ml/min; Globulin 3.8 g/dL (2.2-4.2); Glucose 126 mg/dL (74-106); Potassium 2.9 mmol/L (3.5-5.1); Protein, Total 6.7 g/dL (6.4-8.2); Sodium Level 139 mmol/L (136-145)
[2023-08-20] MEDS: Ceftriaxone 1 GM/50 ML BAG IV (19:30)
--- NOTE | 2023-08-20 20:05 | HP.PCM.HOS_ITS ---
[facility] - General General Date of Admission: 08/20/23 Date of Service: 08/20/23 Chief Complaint: Weakness. [facility] Narrative TEAGAN SON, is a 57 F with a past medical history of essential hypertension, hyperlipidemia, DM-2; of unknown control, pulmonary hypertension, CKD; stage II-III, history of severe depression; with suicide attempt and recent history of THR (03/2023) with poor recovery and chronic debility; with patient mobilizing at home in a wheelchair who presents to [facility] ER complaining of weakness. Mrs. Son 's came home at ~5:00 PM and found the patient sleeping on the ground in front of her wheelchair. Then when he got her up she had no obvious significant traumatic injuries but she seemed confused so he brought her in for further evaluation and treatment. Mrs. Son does not remember exactly what happened and she apparently spends most of her days laying in bed. Her also reported she is incontinent of urine and she will only use the bathroom if her assists her. Her admits she has had a declining memory for the past few years but she seems more confused today than usual. There are no narcotics or blood thinners on her list of medications. She denies associated fever, chills, nausea or vomiting. in the ER she was noted to have a UA positive for acute cystitis; without hematuria complicated by laboratory evidence of hypokalemia of 2.9 mmol/L and ZOEY; with elevated creatinine of 1.94 mg/dL present on admission (up from her baseline of 1.09 mg/dL two weeks ago) present on admission compounded by clinical evidence of metabolic encephalopathy and she was then admitted to the general medical floor for ongoing care for a stay that is expected to be greater than 48 hours. [facility] Medical History Abnormal thyroid function test ZOEY (acute kidney injury) Anemia Anxiety Aspiration pneumonia Back problem Bilateral tinnitus Chronic ulcer of left foot with fat layer exposed CKD (chronic kidney disease), stage III Congestive heart failure Depression with anxiety Dermatitis Diabetic foot ulcer Eczema Essential hypertension Frequent falls Frequent headaches GERD (gastroesophageal reflux disease) H/O emotional problems Hyperglycemia due to type 2 diabetes mellitus Hyperlipidemia Hyperosmolar non-ketotic state in patient with type 2 diabetes mellitus Hypersomnolence Hypokalemia Hypomagnesemia Kidney stones Left facial pain Lightheadedness [place] toxicity Microalbuminuria Neuropathy OAB (overactive bladder) Obesity (BMI 30-39.9) Orthostatic hypotension Polycystic ovaries Postconcussion syndrome PVD (peripheral vascular disease) Seasonal allergies Secondary pulmonary arterial hypertension Seizures Sleep concern Suicide attempt Syncope Syncope and collapse TMJ arthritis Toxic encephalopathy Type 2 diabetes mellitus Type 2 diabetes mellitus without complications Ulcer of left lower extremity with fat layer exposed Venous insufficiency Vision problems Vitamin defciency Xerosis cutis Home Medications albuterol sulfate 2.5 mg/3 mL (0.083 %) solution for nebulization 2.5 mg (3 mL) inhalation Q4H PRN shortness of breath or wheezing #180 mL 05/03/19 [Rx Last Taken Unknown] fludrocortisone 0.1 mg tablet See Rx Instructions .Route .COMPLEX #30 tabs 11/09/22 [Rx Last Taken Unknown] benztropine 1 mg tablet 1 mg PO TID 06/18/23 [History Last Taken Unknown] clotrimazole 1 % topical cream 1 applic topical BID 06/18/23 [History Last Taken Unknown] gabapentin 100 mg capsule See Rx Instructions .Route .COMPLEX 06/18/23 [History Last Taken Unknown] lidocaine 5 % topical patch 1 patch topical QHS 06/18/23 [History Last Taken Unknown] lurasidone 120 mg tablet 120 mg PO DAILY 06/18/23 [History Last Taken Unknown] ondansetron HCl 4 mg tablet 4 mg PO Q6H PRN nausea and vomiting 06/18/23 [History Last Taken Unknown] prazosin 1 mg capsule 3 mg PO QHS 06/18/23 [History Last Taken Unknown] trazodone 50 mg tablet 50 mg PO QHS 06/18/23 [History Last Taken Unknown] walker #1 ea 06/27/23 [Rx Last Taken Unknown] compress.stocking,knee,reg,lrg #2 ea 07/01/23 [Rx Last Taken Unknown] blood sugar diagnostic (FreeStyle Lite Strips) #100 ea 07/09/23 [Rx Last Taken Unknown] blood-glucose meter (FreeStyle Lite Meter kit) #1 ea 07/09/23 [Rx Last Taken Unknown] lancets 28 gauge (FreeStyle Lancets) #200 ea 07/09/23 [Rx Last Taken Unknown] pen needle, diabetic 31 gauge x 3/16 (Comfort EZ Pen Brethren) #100 ea 07/09/23 [Rx Last Taken Unknown] albuterol sulfate 90 mcg/actuation aerosol inhaler (ProAir HFA) 1 - 2 puff inhalation Q6H PRN shortness of breath or wheezing #8.5 grams 07/20/23 [Rx Last Taken Unknown] atorvastatin 40 mg tablet 40 mg PO QHS cholesterol #90 tabs 07/20/23 [Rx Last Ta madan Unknown] folic acid 1 mg tablet 1 mg PO DAILY@0800 supplement #90 tabs 07/20/23 [Rx Last Taken Unknown] losartan 25 mg tablet 25 mg PO DAILY 90 days #90 tabs 07/20/23 [Rx Last Taken Unknown] oxybutynin chloride 10 mg tablet,extended release 24 hr 10 mg PO DAILY #90 tabs 07/20/23 [Rx Last Taken Unknown] pantoprazole 40 mg tablet,delayed release 40 mg PO DAILY GERD #90 tabs 07/20/23 [Rx Last Taken Unknown] sertraline 50 mg tablet 50 mg PO DAILY depression #90 tabs 07/20/23 [Rx Last Taken Unknown] coenzyme Q10 100 mg capsule (Co Q-10) 200 mg PO DAILY 07/29/23 [History Last Taken Unknown] aspirin 81 mg chewable tablet 81 mg PO BREAKFAST 30 days #30 tabs 07/31/23 [Rx Last Taken Unknown] metoprolol tartrate 25 mg tablet 12.5 mg (1/2 x 25 mg) PO BID 30 days #30 tabs 07/31/23 [Rx Last Taken Unknown] ondansetron 4 mg disintegrating tablet 4 mg PO Q8H PRN PRN Nausea #14 tabs 08/04/23 [Rx Last Taken Unknown] Allergy/AdvReac Type Severity Reaction Status Date / Time aspartame Allergy Swelling Verified 08/20/23 17:44 latex Allergy Unknown Verified 08/20/23 17:44 Penicillins Allergy Laryngospas Verified 08/20/23 17:44 ms Family History Unknown Patient was adopted Surgical History History of section History of cholecystectomy History of hip surgery Social History Smoking Status: Never smoker alcohol intake: never substance use type: does not use what type of physical activity do you participate in: walking frequency: daily duration: 30-45 minutes/day ROS ROS Narrative Review of systems: Constitutional: Patient admits to malaise bu denies fever or chills. Eyes: Patient denies changes in vision or discharge from eyes. ENT: Patient denies runny nose, sore throat or ear pain. CV: Patient denies chest pain or palpitations. Resp: Patient denies SOB or cough. GI: Patient denies nausea, vomiting, abdominal pain, diarrhea or constipation. : Positive for urinary incontinence as per HPI. Negative dysuria or hematuria noted. MSK: Patient admits to myalgias and easy fatigability. Psych: Patient has a mildly flat affect but denies uncontrolled depression or anxiety. Neuro: Patient denies headache, paresthesias or focal neurologic deficits. Hematology: Patient denies easy bleeding or easy bruisability. Endocrinology: Patient denies polyuria, polydipsia or polyphagia. 14 point ROS otherwise negative except for positives noted above. Vital Signs Vital Signs Vital Signs: 08/20/23 17:41 08/20/23 19:39 Temperature 97.6 F L Temperature Source Oral Pulse Rate 79 Respiratory Rate 16 Respiratory Pattern Normal Blood Pressure 101/68 Blood Pressure Mean 79 Pulse Ox 96 Oxygen Delivery Method Room Air Weight Weight: 133 lb 9.602 oz Body Mass Index (BMI) 22.9 Physical Exam Const alert, oriented x3 and no apparent distress General Appearance: cooperative HEENT normocephalic, head/scalp atraumatic, hearing grossly normal bilaterally and moist oral mucous membranes Eyes PERRL and EOMs intact bilaterally Neck no lymphadenopathy and supple Resp normal respiratory effort, no retractions, no use of accessory muscles and clear to auscultation bilaterally Cardio regular rate and regular rhythm GI normal to inspection, nondistended, normoactive bowel sounds, soft to palpation, non-tender and non-distended Extremity normal to inspection Skin Skin Narrative: Patient has no evidence of rash. Neuro oriented x3, CN's II-XII intact bilaterally, moves all extremities and no focal motor deficits Sensorium / Orientation: awake, alert, oriented to person, oriented to place and oriented to time Speech: speech normal Psych Mood & Affect: depressed Results Medical Records Data Attestation: I reviewed the patient's medical records Lab / Micro Data Attestation: I reviewed the patient's lab results. 08/20/23 18:30 08/20/23 18:30 Labs: Laboratory Results - last 24 hr 08/20/23 18:30: WBC 5.9, RBC 4.62, Hgb 13.4, Hct 39.9, MCV 86.4, MCH 29.0, MCHC 33.6, RDW Std Deviation 43.8, RDW Coeff of Emery 14.3, Plt Count 179, MPV 10.1, Immature Gran % (Auto) 0.500, Neut % (Auto) 78.3 H, Lymph % (Auto) 13.8 L, [place] % (Auto) 6.2, Eos % (Auto) 0.7, Baso % (Auto) 0.5, Absolute Neuts (auto) 4.6, Absolute Lymphs (auto) 0.82 L, Nucleated RBC % 0, Sodium 139, Potassium 2.9 L, Chloride 98, Carbon Dioxide 36.0 H, Anion Gap 5, BUN 33 H, Creatinine 1.94 H, Estim Creat Clear Calc 26.96, Est GFR (MDRD) Af Amer 34 L, Est GFR (MDRD) Non-Af 28 L, BUN/Creatinine Ratio 17.0, Glucose 126 H, Calcium 8.1 L, Total Bilirubin 1.30 H, AST 27, ALT 16, Alkaline Phosphatase 160 H, Total Protein 6.7, Albumin 2.9 L, Globulin 3.8, Albumin/Globulin Ratio 0.8 L 08/20/23 18:35: Urine Color Yellow, Urine Clarity Cloudy, Urine pH 8.0, Ur Specific [place] 1.010, Urine Protein 500 H, Urine Glucose (UA) Normal, Urine Ketones Negative, Urine Occult Blood 25 H, Urine Nitrite Negative, Urine Bilirubin Negative, Urine Urobilinogen Normal, Ur Leukocyte Esterase 100 H, Urine RBC 0 SEEN, Urine WBC 5-10 SEEN, Ur Squamous Epith Cells 0-5 SEEN, Urine Bacteria 4+, Urine Mucus 0 SEEN Imaging Radiology Impression Brain CT 08/20/23 18:52 IMPRESSION: Chronic involutional changes of the brain. Electronically Signed: Adrian Guardado MD at 20:01 EST , Chest X-Ray 08/20/23 18:52 IMPRESSION: Normal x-ray examination of the chest. Electronically Signed: Adrian Guardado MD at 19:54 EST Reading Location ID and State: [id number] Tel , Service support , Assessment & Plan Assessment/Plan (1) UTI (urinary tract infection): QUALIFIERS: Hematuria presence: without hematuria Urinary tract infection type: acute cystitis Qualified Code(s): N30.00 - Acute cystitis without hematuria (2) Acute kidney injury: (3) CKD (chronic kidney disease), stage III: QUALIFIERS: Chronic kidney disease stage 3 subtype: stage 3b (GFR 30-44) Qualified Code(s): N18.32 - Chronic kidney disease, stage 3b PLAN: Plan 1. Acute cystitis; without hematuria - Admit to general medical floor. Continue IV Rocephin and await culture and sensitivity data. Give Tylenol prn fever or pain. 2. Hypokalemia of 2.9 mmol/L and ZOEY; in the setting of Stage II-III CKD with elevated creatinine of 1.94 mg/dL present on admission (up from her baseline of 1.09 mg/dL two weeks ago) present on admission complicating #1 - Volume resus citate plus give supplemental KCl and then recheck BMP in the AM to ensure improvement. Avoid potentially nephrotoxic agents. Check renal ultrasound to evaluate for evidence of possible obstruction or other pathologic changes. 3. Metabolic encephalopathy with confusion and fall at home arising from #1 & #2 plus her UDS was positive for MDMA - Check TSH, B12, Folate and UDS to evaluate for potentially reversible causes of confusion and hypersomnolence. Minimize APPRENTICE/LINEMAN-active agents. Otherwise, continue supportive care and monitor for improvement. Patient and family will need to be questioned about MDMA positivity as this is not a prescribed agent on her AUG. 4. Recent history of THR (03/2023) with poor recovery and chronic debility; with patient mobilizing at home in a wheelchair compounding #1 - #3 - PT/OT and Case Management to consult and treat on-rounds in the AM with help appreciated in advance. 5. History of severe depression; with suicide attempt and significant poly pharmacy likely exacerbating #1 - #4 - Noted. 6. Essential hypertension - Hold potentially nephrotoxic agents and give IV hydralazine prn for systolic blood pressure > 160 mm Hg. 7. Hyperlipidemia - Continue statin as previous. 8. DM-2; of unknown control - ADA diet. FSBS q. AC/HS plus SSI. Check HgbA1c to objectively assess quality of diabetic control. 9. Pulmonary hypertension - Stable. 10. DVT prophylaxis - Lovenox 40 mg sq daily. Total time: Approximately 55 minutes. Charges/Coding Visit Charges Inpatient E&M: 37604 Init Hosp L2
[2023-08-20 20:38] VITALS: BP 172/90; PULSE 80; RESP 16; O2SAT 99
[2023-08-20 20:56] VITALS: BP 171/87; PULSE 80; RESP 18; TEMP 36.4; O2SAT 98
[2023-08-20 21:47] VITALS: BMI 21.9
[2023-08-20 21:50] LABS: Amphetamine Urine VISTA NEGATIVE (<1000 ng/mL); Barbiturate Urine VISTA NEGATIVE (< 200 ng/mL); Benzodiazepine Urine VISTA NEGATIVE (< 200 ng/mL); Cocaine Urine VISTA NEGATIVE (< 300 ng/mL); Ecstacy Urine VISTA POSITIVE (< 500 ng/mL); Methadone Urine VISTA NEGATIVE (< 300 ng/mL); PCP Urine VISTA NEGATIVE (< 25 ng/mL); THC Urine VISTA NEGATIVE (< 50 ng/mL); Vista UDS pH Range 8
[2023-08-20 21:51] VITALS: BP 164/84; PULSE 78; RESP 18; TEMP 37.1; O2SAT 98
[2023-08-20 22:31] LABS: Hemoglobin A1c 5.3 % (3.8-5.6)
[2023-08-20 22:33] LABS: Vitamin B12 555 pg/mL (211-911)
[2023-08-20] MEDS: KCL 20MEQ in 0.9% NS 20 MEQ/1,000 ML IV.SOLN. 125 MEQ IV (23:50)
[2023-08-20] MEDS: Potassium Chloride Oral Tablet 20 MEQ 60 MEQ PO (23:51)
[2023-08-20] MEDS: Gabapentin 100 MG Capsule 200 MG PO (23:51)
[2023-08-20] MEDS: Benztropine Mesylate 0.5 MG TABLET 1 MG PO (23:54)
[2023-08-20] MEDS: Atorvastatin Calcium 40 MG Tablet PO (23:54)
[2023-08-20] MEDS: traZODone 50 MG Tablet PO (23:54)
[2023-08-20] MEDS: Clotrimazole 1 APPLIC Tube TOPICAL (23:54)
[2023-08-20] MEDS: Doxazosin 1 MG Tablet 2 MG PO (23:54)
[2023-08-20] MEDS: Lidocaine 5% Patch 1 PATCH TOPICAL (23:55)
[2023-08-21 01:02] LABS: Bedside Glucose 88 mg/dL (74-106)
[2023-08-21 03:18] VITALS: BMI 21.9
[2023-08-21 04:41] VITALS: BP 138/75; PULSE 75; RESP 18; TEMP 36.3; O2SAT 97
[2023-08-21] MEDS: Benztropine Mesylate 0.5 MG TABLET 1 MG PO ×3 (04:50→21:48)
[2023-08-21] MEDS: Gabapentin 100 MG Capsule PO ×2 (04:51→14:55)
[2023-08-21] MEDS: KCL 20MEQ in 0.9% NS 20 MEQ/1,000 ML IV.SOLN. 125 MEQ IV (04:51)
[2023-08-21 05:17] LABS: Bedside Glucose 72 mg/dL (74-106)
--- NOTE | 2023-08-21 07:00 | US_ITS ---
EXAM: US RETROPERITONEAL LIMITED, RENAL CLINICAL INDICATION: ZOEY; in the setting of Stage IV CKD TECHNIQUE: Limited grayscale and color Doppler sonographic evaluation of the retroperitoneum was performed. COMPARISON: No relevant prior studies available. FINDINGS: RIGHT KIDNEY: Right kidney measures 10.8 cm in length. No hydronephrosis. No shadowing calculus. No perinephric collection is demonstrated. LEFT KIDNEY: Left kidney measures 10.8 cm in length. No hydronephrosis. No shadowing calculus. No perinephric collection is demonstrated. BLADDER: Urinary bladder is quite distended. Normal urinary bladder wall. US/Kidney and Bladder IMPRESSION: Normal-sized kidneys without hydronephrosis. Electronically Signed: Carlos Villafana MD at 16:28 EST ,
[2023-08-21 08:39] LABS: Absolute Lymphocyte Count 0.78 X10^3/uL (0.83-4.51); Absolute Neutrophil Count 3.6 X10^3/uL (2.0-7.7); Basophil# 0.04 X10^3/uL; Basophil% 0.8 % (0-1); Hematocrit 32.9 % (37-47); Hemoglobin 10.6 g/dL (12.0-15.0); Lymphocyte # 0.78 X10^3/ul (0.83-4.51); Lymphocyte % 15.7 % (19-41); Mean Corp Hgb Conc 32.2 g/dL (32-36); Mean Corpuscular Hgb 28.7 pg (27.0-32.0); Mean Corpuscular Volume 89.2 fL (81-99); Mean Platelet Vol. 9.5 fl (6.2-12.0); Monocyte# 0.39 X10^3/uL; Monocyte% 7.9 % (0-10); NRBC Flagged by Analyzer 0 % (0-5); Neutrophil # 3.64 X10^3/uL (2.7-7.7); Neutrophil % 73.4 % (47-70); Platelet Count 138 K/mm3 (150-450); RBC Distribution Width CV 14.4 % (11.6-14.6); RBC Distribution Width SD 46.1 fl (35.1-43.9); Red Blood Count 3.69 M/mm3 (4.2-5.4)
[2023-08-21 09:13] VITALS: BP 182/80; PULSE 83; RESP 18; TEMP 36.8; O2SAT 98
[2023-08-21 09:16] LABS: ALB/GLOB Ratio 0.6 RATIO (0.9-2.4); AST(SGOT) 20 U/L (15-37); Alanine Aminotransfer ALT/SGPT 13 U/L (13-56); Alkaline Phosphatase 125 U/L (45-117); Anion Gap 3 (5-15); BUN 35 mg/dL (7-18); Calcium,Total 6.9 mg/dL (8.5-10.1); Chloride 107 mmol/L (98-107); Creatinine, Serum 1.67 mg/dL (0.55-1.02); EST Glomerular Filtration Rate 33 mL/min (>60); Est Glom Filt Rate - Afr Amer 40 mL/min (>60); Estimated Creatinine Clearance 31.32 ml/min; Globulin 3.3 g/dL (2.2-4.2); Glucose 106 mg/dL (74-106); Phosphorus 3.4 mg/dL (2.5-4.9); Potassium 3.3 mmol/L (3.5-5.1); Protein, Total 5.3 g/dL (6.4-8.2); Sodium Level 139 mmol/L (136-145); Thyroid Stim Hormone (TSH) 1.44 uIU/mL (0.358-3.74)
[2023-08-21] MEDS: Fludrocortisone Acetate 0.1 MG Tablet 0.100000000000000006 MG PO (09:50)
[2023-08-21] MEDS: Aspirin 81 MG TAB.CHEW PO (09:50)
[2023-08-21] MEDS: Tolterodine Tartrate 2 MG CAP.SA PO (09:52)
[2023-08-21] MEDS: Pantoprazole Sodium 40 MG Tablet PO (09:52)
[2023-08-21] MEDS: Sertraline 50 MG Tablet PO (09:53)
--- NOTE | 2023-08-21 10:18 | CASEMGMT ---
Addendum entered by Mikala Woodward 08/21/23 10:57: Noted PT festus is recommending skilled therapy for pt. TC to pt , he states pt was walking approx 5 feet at home when using the bathroom because the w/c does not fit in the bathroom. He states pt usually relies on the w/c. He reports pt home is a two story home with 13 steps to get to the main floor. He states pt had been in [facility] in [place] in the past and pt was dc'd and was going to [facility] for therapy until her therapist got COVID. Since pt has not been going she has been relying on her w/c and declining. Pt states he would like pt to go to SNF for further therapy prior to coming home. He states he works 9-10 hours/day and pt is alone. Pt does not have a DPOA. Pt would like pt to go to [facility] or [facility], he has no preference. Pt denies need for a list of other options for facilities. Updated SW. Original Note: JOHANA GRIFFIN Assessment: Face to Face with pt for initial transition planning/care coordination assessment. JOHANA GRIFFIN introduced self and role at [facility], pt voices understanding and consents to assessment. Pt is A&O, she was not able to recall the president or where she was. Pt was able to confirm that information was correct once given to her. Care providers, pharmacy, and demographics verified/updated. Admitting Dx: UTI, hypokalemia, ZOEY and metabolic encephalopathy PCP:Orlin Specialists:Denies Preferred Pharmacy:[facility] Insurance: [facility] Prescription Benefit: yes LNOK: Trey Shaw, Living Arrangements: Pt lives in a single story home with 12 steps to enter with a rail. Pt reports she needs assistance from her for all ADL/IADL's at home. Pt denies concerns at home. Transportation: Pt provides her with transportation. DME:BGM with sufficient strips and lancets, walker, cane, w/c HHC/SNF: Pt denies hx of HHC but states she has been in a SNF but cannot recall the name. Pt states no concerns with going home at time of dc. Pt states no further concerns/needs. CM to follow. Advised pt to ask CM if any further question/concerns/needs arise, voices understanding. Pt Goal: Home Plan: Home pending course of hospitalization and therapy slim Wright RN CM
[2023-08-21] MEDS: Folic Acid 1 MG Tablet PO (11:02)
[2023-08-21] MEDS: Clotrimazole 1 APPLIC Tube TOPICAL ×2 (11:03→21:47)
[2023-08-21] MEDS: Enoxaparin 30 MG/0.3 ML Syringe SC (11:03)
[2023-08-21] MEDS: Glucerna Shake 120 ML LIQUID PO ×3 (11:07→17:42)
--- NOTE | 2023-08-21 11:35 | CASEMGMT ---
Social Work SW sent referrals to [facility] and [facility]. SW will continue to follow. KARIN Aguero
--- NOTE | 2023-08-21 14:07 | PN.HOSP_ITS ---
Reason for Visit Reason for Visit: Generalized weakness Subjective Subjective Patient is a 57-year-old female with significant mobility issues at weight baseline who presented to the emergency department at [facility] on 08/20/2023 complaining of worsening weakness. Per report her came home at approximately 5 PM and found the patient sleeping on the ground in front of her wheelchair. When he got her up she had no obvious significant trauma but seemed more confused so brought her to the emergency department for further evaluation. Upon questioning here she does not remember exactly what happened but did report she spends most of her days lying in bed. Her also reported that she is incontinent of urine and will only use the bathroom if he assists her. Her did admit that her memory has been declining over the past few years but her confusion was worse than her baseline. She does not take narcotics or significant sedating medication upon review of med reconciliation at the time of admission. She did have a recent hospitalization here from 07/29/2023 through 07/31/2023 at which time she was admitted for acute hypoxia. Vital signs on presentation were overtly unremarkable showing a temperature of 97.6, heart rate 79, respiratory 16, blood pressure was 101/68 and oxygen saturation was 96% on room air. Her CBC was overtly unremarkable but did have a left shift with a 78.3% neutrophilia. Her chemistry panel showed hypokalemia with a potassium of 2.9 ZOEY with a serum creatinine of 1.94 (baseline 1.0-1.2), mildly elevated bilirubin at 1.3 with normal LFTs. This is likely related to dehydration. B12 and folate were obtained and found to be normal. TSH was normal. Hemoglobin A1c was obtained and found to be 5.3. Her UA was somewhat suggestive of infection with a small amount of white cells at 15-10 per hpf and 4+ bacteria. Given this a urine culture was sent and at this time is showing a preliminary positive for possible Enterococcus however colony counts are 1000- 10,000 meaning that this is his below infection level and likely related to colonization. Patient states she feels much better. We discussed that it does not appear like she has a urinary tract infection based on colony counts but she is markedly dehydrated on presentation and has significant electrolyte abnormalities. Objective Data Objective Data Vital Signs: Vital Signs Temp Pulse Resp BP Pulse Ox O2 Del Method 98.2 F 83 18 182/80 H 98 Room Air 08/21/23 09:13 08/21/23 09:13 08/21/23 09:13 08/21/23 09:13 08/21/23 09:13 08/21/23 09:13 Oxygen Delivery Method Room Air Weight: 58.1 kg Body Mass Index (BMI) 21.9 Intake & Output: Intake and Output for Last 24 Hours 08/19/23 08/20/23 08/21/23 23:59 23:59 23:59 Intake Total 1050 / 1050 627.08 / 627.08 Balance 1050 / 1050 627.08 / 627.08 Medical Nutrition Assessment Dietitian: Malnutrition Criteria Met Start: 08/21/23 12:38 Freq: Status: Active Protocol: Document 08/21/23 12:38 SLA (Rec: 08/21/23 12:38 SLA [id number]) Nutrition Malnutrition Evidence of Malnutrition Exists Yes Malnutrition (severe): Acute Illness/Injury Evidenced By Suboptimal Energy Intake ( Severe),Weight Loss (Severe), Physical Changes (Severe) Clinical Problem Acute Disease or Injury Related Malnutrition Etiology related to inadequate energy intake Signs/Symptoms as evidenced by 24.5% unintended wt loss, po intake meeting <75% of est nutritional needs x < 1 month and obvious fat/muscle loss throughout body Status Active Problem Recommendation Dietitian Recommendations/Changes Will liberalize diet to Regular No Added Salt w/ consistency per [employer]SEMBLER d/t signs and symptoms of malnutrition Will continue glucerna shake tid w/ medpass Rec consider appetite stimulant for increased po intake Lab / Micro Data 08/21/23 08:09 08/21/23 08:29 Labs: Laboratory Results - last 24 hr 08/20/23 18:30: WBC 5.9, RBC 4.62, Hgb 13.4, Hct 39.9, MCV 86.4, MCH 29.0, MCHC 33.6, RDW Std Deviation 43.8, RDW Coeff of Emery 14.3, Plt Count 179, MPV 10.1, Immature Gran % (Auto) 0.500, Neut % (Auto) 78.3 H, Lymph % (Auto) 13.8 L, [place] % (Auto) 6.2, Eos % (Auto) 0.7, Baso % (Auto) 0.5, Absolute Neuts (auto) 4.6, Absolute Lymphs (auto) 0.82 L, Nucleated RBC % 0, Sodium 139, Potassium 2.9 L, Chloride 98, Carbon Dioxide 36.0 H, Anion Gap 5, BUN 33 H, Creatinine 1.94 H, Estim Creat Clear Calc 26.96, Est GFR (MDRD) Af Amer 34 L, Est GFR (MDRD) Non-Af 28 L, BUN/Creatinine Ratio 17.0, Glucose 126 H, Hemoglobin A1c 5.3, Calcium 8.1 L, Total Bilirubin 1.30 H, AST 27, ALT 16, Alkaline Phosphatase 160 H, Total Protein 6.7, Albumin 2.9 L, Globulin 3.8, Albumin/Globulin Ratio 0.8 L, Folate 60.00 H 08/20/23 18:35: Urine Color Yellow, Urine Clarity Cloudy, Urine pH 8.0, Ur Specific Pope 1.010, Urine Protein 500 H, Urine Glucose (UA) Normal, Urine Ketones Negative, Urine Occult Blood 25 H, Urine Nitrite Negative, Urine Bilirubin Negative, Urine Urobilinogen Normal, Ur Leukocyte Esterase 100 H, Urine RBC 0 SEEN, Urine WBC 5-10 SEEN, Ur Squamous Epith Cells 0-5 SEEN, Urine Bacteria 4+, Urine Mucus 0 SEEN, Urine Opiates Screen NEGATIVE, Urine Methadone Screen NEGATIVE, Ur Barbiturates Screen NEGATIVE, Ur Phencyclidine Scrn NEGATIVE, Ur Amphetamines Screen NEGATIVE, MDMA (Ecstasy) Screen POSITIVE H, U Benzodiazepines Scrn NEGATIVE, Urine Cocaine Screen NEGATIVE, U Cannabinoids Screen NEGATIVE, Ur Drug Screen Comment 08/20/23 21:52: Vitamin B12 555 08/21/23 00:09: POC Glucose 88 08/21/23 04:47: POC Glucose 72 L 08/21/23 08:09: WBC 5.0, RBC 3.69 L, Hgb 10.6 L, Hct 32.9 L, MCV 89.2, MCH 28.7, MCHC 32.2, RDW Std Deviation 46.1 H, RDW Coeff of Emery 14.4, Plt Count 138 L, MPV 9.5, Immature Gran % (Auto) 0.200, Neut % (Auto) 73.4 H, Lymph % (Auto) 15.7 L, [place] % (Auto) 7.9, Eos % (Auto) 2.0, Baso % (Auto) 0.8, Absolute Neuts (auto) 3.6, Absolute Lymphs (auto) 0.78 L, Nucleated RBC % 0 08/21/23 08:29: Sodium 139, Potassium 3.3 L, Chloride 107, Carbon Dioxide 29.0, Anion Gap 3 L, BUN 35 H, Creatinine 1.67 H, Estim Creat Clear Calc 31.32, Est GFR (MDRD) Af Amer 40 L, Est GFR (MDRD) Non-Af 33 L, BUN/Creatinine Ratio 21.0 H , Glucose 106, Calcium 6.9 L, Phosphorus 3.4, Magnesium 1.0 L, Total Bilirubin 0.50, AST 20, ALT 13, Alkaline Phosphatase 125 H, Total Protein 5.3 L, Albumin 2.0 L, Globulin 3.3, Albumin/Globulin Ratio 0.6 L, TSH 1.44 Micro: Microbiology 08/20/23 18:35 Urine, Random Urine Culture - Preliminary GPC Poss Enterococcus sp Radiography Diagnostic Testing: Radiology Impression Brain CT 08/20/23 18:52 IMPRESSION: Chronic involutional changes of the brain. Electronically Signed: Adrian Guardado MD at 20:01 EST Reading Location ID and State: [id number] / Offline [employer] Tel , Service support , Chest X-Ray 08/20/23 18:52 IMPRESSION: Normal x-ray examination of the chest. Electronically Signed: Adrian Guardado MD at 19:54 EST Reading Location ID and State: [id number] / [employer] Tel , Service support , Physical Exam Const alert, oriented x3, no apparent distress, average body habitus and well nourished; Negative for healthy appearing Constitutional Narrative: Middle-aged, white female, sitting in a chair at the bedside, appears comfortable, nontoxic, appears much older than stated age, no confusion and cooperative Orientation / Consciousness: Negative for confused HEENT head/scalp atraumatic and moist oral mucous membranes HEENT Narrative: Dentition is poor with multiple rotting and partially missing teeth, Mallampati 2, no thrush Head and Scalp: normocephalic Resp normal respiratory effort, no retractions, no use of accessory muscles and clear to auscultation bilaterally Auscultation: Negative for rales, rhonchi or wheezes Cardio regular rate, regular rhythm, S1 normal heart sound, S2 normal heart sound, no murmurs, no rub, no gallops and no clicks GI normal to inspection, nondistended, normoactive bowel sounds, soft to palpation and non-tender Extremity no clubbing, cyanosis or edema Extremity Narrative: 2+ pedal pulses Neuro oriented x3 Neuro Narrative: Marked generalized weakness with no specific focal deficits Speech: speech normal Psych affect normal Psych Narrative: Eye contact is good and patient interacts appropriately, no signs of significant mood disorder Assessment & Plan Assessment/Plan (1) Altered mental status: (2) Acute dehydration: (3) Acute kidney injury: (4) Hypokalemia: PLAN: Plan ZOEY secondary to dehydration -Renal function is improving -Baseline is between 1.0 and 1.2 -Renal function on admission was 1.94 with repeat this morning at 1.67 -Continue IV fluids as patient still appears dehydrated and will run LR at 100 cc/h over the next 18 hours -Repeat BMP in a.m. Hypokalemia -2.9 on admission and was given 60 mEq p.o. with an improvement to 3.3 -Will give 60 more mEq today and repeat in a.m. -Patient is hypomagnesemic and will replace magnesium which should help her potassium normalized Hypomagnesemia -Magnesium level is 1.0 -4 g magnesium given -Repeat in a.m. Bacteriuria -UA was suspicious for infection so urine culture was sent -Urine culture is showing possible Enterococcus however colony counts are between 1000 and 10,000 and below infection level amounts -Will discontinue ceftriaxone Toxic/metabolic encephalopathy -Drug screen was positive for MDMA however this is likely related to her home medications and cross-reactivity -Mental status is back to her baseline -TSH is normal B12 and folate are unremarkable Chronic immobility -PT and OT is to see her -Since she is chronically immobile plan on discharge home Hypertension -Continue home metoprolol -Restart losartan tomorrow if renal function has normalized -Continue as needed hydralazine History of orthostatic hypotension -Continue home fludrocortisone Hyperlipidemia -Continue home statin DM-2 -Hemoglobin A1c is therapeutic -ADA diet -Continue SSI and Accu-Cheks as ordered -Patient is not on any oral agents at home and appears to be diet controlled Pulmonary hypertension -Continue outpatient follow-up -No acute problems Neuropathy -Continue home gabapentin Urinary incontinence -Continue oxybutynin for now however this could complicate confusion especially she is dehydrated Depression/history of SI/PTSD -Continue home Cogentin -Continue home Latuda -Continue home prazosin -Continue home sertraline -Continue home trazodone DVT prophylaxis -Continue enoxaparin as ordered CODE STATUS Full code is verified admission Charges/Coding Visit Charges Inpatient E&M: 15201 Subs Hosp L2
[2023-08-21] MEDS: Magnesium Sulfate 4gm/100mL 4 GM/100 ML IV.SOLN. IV (14:44)
[2023-08-21] MEDS: Potassium Chloride Oral Tablet 20 MEQ 60 MEQ PO (14:44)
[2023-08-21] MEDS: Lactated Ringers 1,000 ML 100 ML IV (14:45)
[2023-08-21 15:02] VITALS: BP 146/81; PULSE 82; RESP 20; TEMP 36.9; O2SAT 100
[2023-08-21 15:25] LABS: Bedside Glucose 124 mg/dL (74-106)
[2023-08-21 17:23] LABS: Bedside Glucose 120 mg/dL (74-106)
[2023-08-21] MEDS: LURASIDONE HCL 120 MG TABLET PO (17:42)
[2023-08-21 20:00] VITALS: BP 169/80; PULSE 88; RESP 19; TEMP 37.5; O2SAT 98
[2023-08-21] MEDS: traZODone 50 MG Tablet PO (21:46)
[2023-08-21] MEDS: Doxazosin 1 MG Tablet 2 MG PO (21:46)
[2023-08-21] MEDS: Gabapentin 100 MG Capsule 200 MG PO (21:46)
[2023-08-21] MEDS: Atorvastatin Calcium 40 MG Tablet PO (21:48)
[2023-08-22] MEDS: Lactated Ringers 1,000 ML 100 ML IV (01:09)
[2023-08-22 02:00] VITALS: BP 166/78; PULSE 84; RESP 18; TEMP 36.8; O2SAT 100
[2023-08-22] MEDS: Benztropine Mesylate 0.5 MG TABLET 1 MG PO ×3 (05:27→22:59)
[2023-08-22] MEDS: Gabapentin 100 MG Capsule PO ×2 (05:42→14:13)
[2023-08-22 06:00] VITALS: BMI 23.8
[2023-08-22 06:38] LABS: Absolute Lymphocyte Count 1.04 X10^3/uL (0.83-4.51); Absolute Neutrophil Count 2.7 X10^3/uL (2.0-7.7); Basophil# 0.02 X10^3/uL; Basophil% 0.5 % (0-1); Eosinophil# 0.22 X10^3/uL; Eosinophils% 5.1 % (0-5); Hematocrit 31.5 % (37-47); Hemoglobin 10.4 g/dL (12.0-15.0); Lymphocyte # 1.04 X10^3/ul (0.83-4.51); Mean Corpuscular Hgb 29.1 pg (27.0-32.0); Mean Platelet Vol. 9.6 fl (6.2-12.0); Monocyte# 0.31 X10^3/uL; Monocyte% 7.2 % (0-10); NRBC Flagged by Analyzer 0 % (0-5); Neutrophil # 2.73 X10^3/uL (2.7-7.7); Platelet Count 151 K/mm3 (150-450); RBC Distribution Width CV 14.4 % (11.6-14.6); RBC Distribution Width SD 45.5 fl (35.1-43.9); Red Blood Count 3.58 M/mm3 (4.2-5.4); White Blood Count 4.3 K/mm3 (4.4-11.0)
[2023-08-22 07:00] LABS: Bedside Glucose 93 mg/dL (74-106)
[2023-08-22 07:08] LABS: Anion Gap 3 (5-15); BUN 30 mg/dL (7-18); BUN/Creat Ratio 25.9 RATIO (10-20); Calcium,Total 7.7 mg/dL (8.5-10.1); Chloride 110 mmol/L (98-107); Creatinine, Serum 1.16 mg/dL (0.55-1.02); EST Glomerular Filtration Rate 51 mL/min (>60); Est Glom Filt Rate - Afr Amer 61 mL/min (>60); Estimated Creatinine Clearance 45.09 ml/min; Glucose 93 mg/dL (74-106); Potassium 3.6 mmol/L (3.5-5.1); Sodium Level 142 mmol/L (136-145)
[2023-08-22 07:30] VITALS: BP 169/87; PULSE 81; RESP 16; TEMP 36.6; O2SAT 98
[2023-08-22] MEDS: Fludrocortisone Acetate 0.1 MG Tablet 0.100000000000000006 MG PO (10:00)
[2023-08-22] MEDS: Aspirin 81 MG TAB.CHEW PO (10:00)
[2023-08-22] MEDS: Glucerna Shake 120 ML LIQUID PO ×3 (10:01→17:31)
[2023-08-22] MEDS: Folic Acid 1 MG Tablet PO (10:01)
[2023-08-22] MEDS: Tolterodine Tartrate 2 MG CAP.SA PO (10:02)
[2023-08-22] MEDS: LURASIDONE HCL 120 MG TABLET PO (10:02)
[2023-08-22] MEDS: Sertraline 50 MG Tablet PO (10:03)
[2023-08-22] MEDS: Pantoprazole Sodium 40 MG Tablet PO (10:03)
[2023-08-22] MEDS: Clotrimazole 1 APPLIC Tube TOPICAL ×2 (10:03→23:01)
[2023-08-22] MEDS: Enoxaparin 40 MG/0.4 ML Syringe SC (10:15)
[2023-08-22 11:40] LABS: Bedside Glucose 130 mg/dL (74-106)
[2023-08-22 14:00] VITALS: BP 127/73; PULSE 81; RESP 18; TEMP 36.6; O2SAT 100
--- NOTE | 2023-08-22 14:46 | PN.HOSP_ITS ---
Reason for Visit Reason for Visit: Generalized weakness Subjective Subjective No issues overnight. Patient states she is feeling well. Therapy thought patient should qualify for care home facility and patient would like to pursue this. Currently in the process of finding an accepting facility and then pre-CERT will need to be obtained. I did discuss all of this with the patient and she voiced understanding. Objective Data Objective Data Vital Signs: Vital Signs Temp Pulse Resp BP Pulse Ox O2 Del Method 97.9 F 81 18 127/73 H 100 Room Air 08/22/23 14:00 08/22/23 14:00 08/22/23 14:00 08/22/23 14:00 08/22/23 14:00 08/22/23 14:00 Oxygen Delivery Method Room Air Weight: 63.2 kg Body Mass Index (BMI) 23.8 Intake & Output: Intake and Output for Last 24 Hours 08/20/23 08/21/23 08/22/23 23:59 23:59 23:59 Intake Total 1050 / 1050 2226. 3135 / 3135 Balance 1050 / 1050 3135 / 3135 Medical Nutrition Assessment Dietitian: Malnutrition Criteria Met Start: 08/21/23 12:38 Freq: Status: Active Protocol: Document 08/21/23 12:38 YESENIA (Rec: 08/21/23 12:38 SLA [id number]) Nutrition Malnutrition Evidence of Malnutrition Exists Yes Malnutrition (severe): Acute Illness/Injury Evidenced By Suboptimal Energy Intake ( Severe),Weight Loss (Severe), Physical Changes (Severe) Clinical Problem Acute Disease or Injury Related Malnutrition Etiology related to inadequate energy intake Signs/Symptoms as evidenced by 24.5% unintended wt loss, po intake meeting <75% of est nutritional needs x < 1 month and obvious fat/muscle loss throughout body Status Active Problem Recommendation Dietitian Recommendations/Changes Will liberalize diet to Regular No Added Salt w/ consistency per WET ROOM WORKER d/t signs and symptoms of malnutrition Will continue glucerna shake tid w/ medpass Rec consider appetite stimulant for increased po intake Lab / Micro Data 08/22/23 06:03 08/22/23 06:03 Labs: Laboratory Results - last 24 hr 08/21/23 15:07: POC Glucose 124 H 08/21/23 17:03: POC Glucose 120 H 08/22/23 05:46: POC Glucose 93 03/03/24 06:03: WBC 4.3 L, RBC 3.58 L, Hgb 10.4 L, Hct 31.5 L, MCV 88.0, MCH 29.1, MCHC 33.0, RDW Std Deviation 45.5 H, RDW Coeff of Emery 14.4, Plt Count 151, MPV 9.6, Immature Gran % (Auto) 0.200, Neut % (Auto) 63.0, Lymph % (Auto) 24.0, [place] % (Auto) 7.2, Eos % (Auto) 5.1 H, Baso % (Auto) 0.5, Absolute Neuts (auto) 2.7, Absolute Lymphs (auto) 1.04, Nucleated RBC % 0, Sodium 142, Potassium 3.6, Chloride 110 H, Carbon Dioxide 29.0, Anion Gap 3 L, BUN 30 H, Creatinine 1.16 H, Estim Creat Clear Calc 45.09, Est GFR (MDRD) Af Amer 61, Est GFR (MDRD) Non-Af 51 L, BUN/Creatinine Ratio 25.9 H, Glucose 93, Calcium 7.7 L 08/22/23 11:23: POC Glucose 130 H Micro: Microbiology 08/20/23 18:35 Urine, Random Urine Culture - Final GPC Poss Enterococcus sp Radiography Diagnostic Testing: Radiology Impression Renal Ultrasound 08/21/23 07:00 IMPRESSION: Normal-sized kidneys without hydronephrosis. Electronically Signed: Carlos Villafana MD at 16:28 EST Reading Location ID and State: [address] [place] [address] Tel , Service support , Physical Exam Const alert, oriented x3, no apparent distress, average body habitus and well nourished; Negative for healthy appearing Constitutional Narrative: Middle-aged, white female, lying in bed sleeping but awakens easily and appropriate following awakening, appears comfortable, nontoxic, appears much older than stated age, no confusion and cooperative General Appearance: cooperative Orientation / Consciousness: Negative for confused HEENT normocephalic, head/scalp atraumatic, hearing grossly normal bilaterally and moist oral mucous membranes HEENT Narrative: Dentition is extremely poor with multiple missing teeth and partially missing teeth, Mallampati is 2, no thrush Resp normal respiratory effort, no retractions, no use of accessory muscles and clear to auscultation bilaterally Auscultation: Negative for rales, rhonchi or wheezes Cardio regular rate, regular rhythm, S1 normal heart sound, S2 normal heart sound, no murmurs, no rub, no gallops and no clicks GI normal to inspection, nondistended, normoactive bowel sounds, soft to palpation and non-tender Extremity no clubbing, cyanosis or edema Extremity Narrative: 2+ pedal pulses Skin Skin Narrative: Patient has no evidence of rash. Neuro oriented x3, moves all extremities and no focal motor deficits Neuro Narrative: Marked generalized weakness with no specific focal deficits Speech: speech normal Psych affect normal Psych Narrative: Eye contact is good and patient interacts appropriately, no signs of significant mood disorder Assessment & Plan Assessment/Plan (1) Altered mental status: (2) Acute dehydration: (3) Acute kidney injury: (4) Hypokalemia: PLAN: Plan ZOEY secondary to dehydration -ZOEY has resolved -Baseline is between 1.0 and 1.2 -Renal function on admission was 1.94 with repeat this morning at 1.16 -Continue IV fluids as patient still appears dehydrated and will run LR at 100 cc/h over the next 18 hours -Repeat BMP in a.m. Hypokalemia - resolved Hypomagnesemia -Resolved Bacteriuria -UA was suspicious for infection so urine culture was sent -Urine culture is showing possible Enterococcus however colony counts are between 1000 and 10,000 and below infection level amounts -Will discontinue ceftriaxone Toxic/metabolic encephalopathy -Drug screen was positive for MDMA however this is likely related to her home medications and cross-reactivity -Resolved -TSH is normal -B12 and folate are unremarkable Chronic immobility -PT and OT recommending skilled therapy at discharge -Since she is chronically immobile plan on discharge home Hypertension -Continue home metoprolol -Restart losartan -Continue as needed hydralazine History of orthostatic hypotension -Continue home fludrocortisone Hyperlipidemia -Continue home statin DM-2 -Hemoglobin A1c is therapeutic -ADA diet -Continue SSI and Accu-Cheks as ordered -Patient is not on any oral agents at home and appears to be diet controlled Pulmonary hypertension -Continue outpatient follow-up -No acute problems Neuropathy -Continue home gabapentin Urinary incontinence -Continue oxybutynin for now however this could complicate confusion especially she is dehydrated Depression/history of SI/PTSD -Continue home Cogentin -Continue home Latuda -Continue home prazosin -Continue home sertraline -Continue home trazodone DVT prophylaxis -Continue enoxaparin as ordered CODE STATUS Full code is verified admission Disposition: -Patient is now medically ready for discharge. Has been recommended for skilled placement by physical and Occupational Therapy. SNF referrals were made yesterday and awaiting acceptance and pre-CERT from insurance. Patient medically ready for discharge today. Charges/Coding Visit Charges Inpatient E&M: 56626 Subs Hosp L2
[2023-08-22 17:54] LABS: Bedside Glucose 129 mg/dL (74-106)
[2023-08-22 22:49] VITALS: BP 162/76; PULSE 88; RESP 18; TEMP 37.3; O2SAT 99
[2023-08-22] MEDS: Atorvastatin Calcium 40 MG Tablet PO (22:58)
[2023-08-22] MEDS: Doxazosin 1 MG Tablet 2 MG PO (22:58)
[2023-08-22] MEDS: traZODone 50 MG Tablet PO (22:59)
[2023-08-22 23:00] VITALS: BP 162/76; PULSE 88
[2023-08-22] MEDS: Metoprolol Tartrate 25 MG Tablet 12.5 MG PO (23:00)
[2023-08-22] MEDS: Gabapentin 100 MG Capsule 200 MG PO (23:00)
[2023-08-22 23:42] LABS: Bedside Glucose 114 mg/dL (74-106)
[2023-08-23] VITALS (8 sets, daily range): BP systolic 145–158; BP diastolic 69–86; PULSE 72–81; RESP 16–18; TEMP 36.4–37.5; O2SAT 95–99; BMI 23.8
[2023-08-23] MEDS: Benztropine Mesylate 0.5 MG TABLET 1 MG PO ×3 (05:38→21:40)
[2023-08-23] MEDS: Gabapentin 100 MG Capsule PO ×2 (05:39→13:49)
[2023-08-23 06:26] LABS: Absolute Lymphocyte Count 1.86 X10^3/uL (0.83-4.51); Absolute Neutrophil Count 2.8 X10^3/uL (2.0-7.7); Basophil# 0.03 X10^3/uL; Basophil% 0.5 % (0-1); Eosinophil# 0.41 X10^3/uL; Eosinophils% 7.5 % (0-5); Hematocrit 29.6 % (37-47); Hemoglobin 9.7 g/dL (12.0-15.0); Lymphocyte # 1.86 X10^3/ul (0.83-4.51); Lymphocyte % 33.9 % (19-41); Mean Corp Hgb Conc 32.8 g/dL (32-36); Mean Corpuscular Volume 88.4 fL (81-99); Mean Platelet Vol. 9.7 fl (6.2-12.0); Monocyte# 0.39 X10^3/uL; Monocyte% 7.1 % (0-10); NRBC Flagged by Analyzer 0 % (0-5); Neutrophil # 2.79 X10^3/uL (2.7-7.7); Neutrophil % 50.8 % (47-70); Platelet Count 145 K/mm3 (150-450); RBC Distribution Width CV 14.4 % (11.6-14.6); Red Blood Count 3.35 M/mm3 (4.2-5.4); White Blood Count 5.5 K/mm3 (4.4-11.0)
[2023-08-23 06:32] LABS: Bedside Glucose 109 mg/dL (74-106)
[2023-08-23 06:42] LABS: Anion Gap 2 (5-15); BUN 33 mg/dL (7-18); BUN/Creat Ratio 28.9 RATIO (10-20); Calcium,Total 7.7 mg/dL (8.5-10.1); Chloride 107 mmol/L (98-107); Creatinine, Serum 1.14 mg/dL (0.55-1.02); EST Glomerular Filtration Rate 52 mL/min (>60); Est Glom Filt Rate - Afr Amer 63 mL/min (>60); Estimated Creatinine Clearance 45.88 ml/min; Glucose 98 mg/dL (74-106); Magnesium 1.4 mg/dL (1.6-2.6); Potassium 3.8 mmol/L (3.5-5.1); Sodium Level 139 mmol/L (136-145)
[2023-08-23] MEDS: LURASIDONE HCL 120 MG TABLET PO (09:40)
[2023-08-23] MEDS: Losartan Potassium 25 MG Tablet PO (09:40)
[2023-08-23] MEDS: Metoprolol Tartrate 25 MG Tablet 12.5 MG PO ×2 (09:41→21:40)
[2023-08-23] MEDS: Tolterodine Tartrate 2 MG CAP.SA PO (09:41)
[2023-08-23] MEDS: Aspirin 81 MG TAB.CHEW PO (09:41)
[2023-08-23] MEDS: Enoxaparin 40 MG/0.4 ML Syringe SC (09:41)
[2023-08-23] MEDS: Sertraline 50 MG Tablet PO (09:41)
[2023-08-23] MEDS: Pantoprazole Sodium 40 MG Tablet PO (09:41)
[2023-08-23] MEDS: Folic Acid 1 MG Tablet PO (09:41)
[2023-08-23] MEDS: Clotrimazole 1 APPLIC Tube TOPICAL ×2 (09:42→21:41)
[2023-08-23] MEDS: Glucerna Shake 120 ML LIQUID PO (11:46)
[2023-08-23] MEDS: 0.9% Saline Lock 10 ML Syringe IV (11:46)
[2023-08-23] MEDS: Magnesium Sulfate 4gm/100mL 4 GM/100 ML IV.SOLN. IV (11:46)
[2023-08-23 11:56] LABS: Bedside Glucose 111 mg/dL (74-106)
--- NOTE | 2023-08-23 13:07 | PN.HOSP_ITS ---
Reason for Visit Reason for Visit: Diagnoses Dehydration (08/20/23) Hypokalemia (08/20/23) Acute kidney failure, unspecified (08/20/23) Chronic kidney disease, stage 3b (08/20/23) Acute cystitis without hematuria (08/20/23) Altered mental status, unspecified (08/20/23) Subjective Subjective No acute events overnight. Patient seen at bedside this morning, was about to work with physical therapy when I saw her. She appeared mildly fatigued and somewhat confused when talking with me and with therapist, but per nursing staff this is close to her baseline. She denies any acute pain or discomfort at rest. No other acute concerns this morning. Objective Data Objective Data Vital Signs: Vital Signs Temp Pulse Resp BP Pulse Ox O2 Del Method 97.6 F L 80 18 152/85 H 96 Room Air 08/23/23 09:05 08/23/23 09:41 08/23/23 09:05 08/23/23 09:05 08/23/23 10:02 08/23/23 10:02 Oxygen Delivery Method Room Air Weight: 63.4 kg Body Mass Index (BMI) 23.8 Intake & Output: Intake and Output for Last 24 Hours 08/21/23 08/22/23 08/23/23 23:59 23:59 23:59 Intake Total 3535 / 3535 300 / 300 Balance 3535 / 3535 300 / 300 Medical Nutrition Assessment Dietitian: Malnutrition Criteria Met Start: 08/21/23 12:38 Freq: Status: Active Protocol: Document 08/21/23 12:38 YESENIA (Rec: 08/21/23 12:38 SLA [id number]) Nutrition Malnutrition Evidence of Malnutrition Exists Yes Malnutrition (severe): Acute Illness/Injury Evidenced By Suboptimal Energy Intake ( Severe),Weight Loss (Severe), Physical Changes (Severe) Clinical Problem Acute Disease or Injury Related Malnutrition Etiology related to inadequate energy intake Signs/Symptoms as evidenced by 24.5% unintended wt loss, po intake meeting <75% of est nutritional needs x < 1 month and obvious fat/muscle loss throughout body Status Active Problem Recommendation Dietitian Recommendations/Changes Will liberalize diet to Regular No Added Salt w/ consistency per [employer] HEL[employer]OSPECTING d/t signs and symptoms of malnutrition Will continue glucerna shake tid w/ medpass Rec consider appetite stimulant for increased po intake Lab / Micro Data 08/23/23 05:57 08/23/23 05:57 Labs: Laboratory Results - last 24 hr 08/22/23 17:34: POC Glucose 129 H 08/22/23 23:09: POC Glucose 114 H 08/23/23 05:11: POC Glucose 109 H 08/23/23 05:57: WBC 5.5, RBC 3.35 L, Hgb 9.7 L, Hct 29.6 L, MCV 88.4, MCH 29.0, MCHC 32.8, RDW Std Deviation 46.0 H, RDW Coeff of Emery 14.4, Plt Count 145 L, MPV 9.7, Immature Gran % (Auto) 0.200, Neut % (Auto) 50.8, Lymph % (Auto) 33.9, [place] % (Auto) 7.1, Eos % (Auto) 7.5 H, Baso % (Auto) 0.5, Absolute Neuts (auto) 2.8, Absolute Lymphs (auto) 1.86, Nucleated RBC % 0, Sodium 139, Potassium 3.8, Chloride 107, Carbon Dioxide 30.0, Anion Gap 2 L, BUN 33 H, Creatinine 1.14 H, Estim Creat Clear Calc 45.88, Est GFR (MDRD) Af Amer 63, Est GFR (MDRD) Non-Af 52 L, BUN/Creatinine Ratio 28.9 H, Glucose 98, Calcium 7.7 L, Magnesium 1.4 L 08/23/23 11:38: POC Glucose 111 H Micro: Microbiology 08/20/23 18:35 Urine, Random Urine Culture - Final GPC Poss Enterococcus sp Physical Exam Const alert, no apparent distress and average body habitus Constitutional Narrative: Middle-aged female, sitting edge of bed, appears fatigued and fairly weak, a ppears somewhat confused but answers questions with short appropriate responses, no acute distress. General Appearance: cooperative and comfortable HEENT normocephalic, head/scalp atraumatic, hearing grossly normal bilaterally and nasal mucous membranes and turbinates normal HEENT Narrative: Poor dentition, missing multiple teeth. Eyes PERRL, EOMs intact bilaterally and conjunctivae normal Chest inspection of chest normal Resp normal respiratory effort, normal air movement, no use of accessory muscles and clear to auscultation bilaterally Cardio regular rate, regular rhythm, no murmurs and peripheral pulses 2+ throughout GI normal to inspection, nondistended, normoactive bowel sounds, soft to palpation, non-tender and non-distended Back/Spine normal ROM Extremity normal to inspection, full ROM and no pedal edema Skin no rashes or lesions noted Neuro no focal motor deficits and no sensory deficits noted Psych mental status grossly normal Assessment & Plan Assessment/Plan (1) Debility: (2) Acute kidney injury: PLAN: Plan Patient is a 57-year-old female who presented [facility] ED on 08/20/2023 with worsening weakness. 1. ZOEY secondary to dehydration, resolved ? Creatinine 1.94 on admit, baseline between 1.0-1.2. Presumed prerenal etiology due to dehydration, resolved by 08/21. No need for more IV fluids, encourage p.o. intake, no need to monitor BMP further. 2. Debility ? PT/OT/case management following. Planning for SNF on discharge, awaiting acceptance and pre-CERT, medically stable for discharge on 08/21. 3. Bacteriuria ? UA suspicious for infection on admission so urine culture was sent. Urine culture showing possible Enterococcus however colony counts were only between 1000 and 10,000. Discontinued ceftriaxone on 08/21. 4. Toxic/metabolic encephalopathy, resolved ? Suspected secondary to dehydration on admit as noted above with possible degree of mild chronic cognitive impairment. Drug screen positive for MDMA however this was likely related to her home medications and cross-reactivity. T SH normal, B12 and folate unremarkable. Resolved. 5. Hypokalemia, hypomagnesemia ? Resolved. Chronic medical conditions: ? HTN, HPL: Continue home metoprolol, losartan, statin. ? Type 2 diabetes mellitus: A1c therapeutic on admit. Continue sliding scale insulin while inpatient. Appears to be diet controlled at home. ? Pulmonary hypertension: Continue outpatient follow-up. ? Neuropathy: Continue gabapentin. ? Urinary incontinence: Continue home oxybutynin. ? Depression, history of SI, PTSD: Continue home Cogentin, Latuda, prazosin, sertraline, trazodone. DVT prophylaxis: Lovenox CODE STATUS: Full code, verified Expected disposition: SNF, medically ready for discharge on 08/21, awaiting a cceptance and pre-CERT Total clinical time spent by myself addressing the patient's medical issues, reviewing all the data, and collaborating with patient's care team: 35 minutes. Charges/Coding Visit Charges Inpatient E&M: 07814 Subs Hosp L2
--- NOTE | 2023-08-23 14:25 | CASEMGMT ---
Social [facility] are able to accept pt. SW met with pt and notified that both facilities have accepted and SW requested choice of facility. Pt deferring decision to pt's . Phone call to pt's spouse Trey and information provided. Trey choosing [facility]. Precert to be started at this time. Plan: [facility], pending precert KEL Cardenas
--- NOTE | 2023-08-23 14:32 | CASEMGMT ---
Discharge Planning Patients foc is Divine. They have been updated and asked to start precert. [facility] asked to cancell referral. Colette Carnes, Discharge Planning Asst.
[2023-08-23 16:22] LABS: Bedside Glucose 98 mg/dL (74-106)
[2023-08-23] MEDS: Doxazosin 1 MG Tablet 2 MG PO (21:37)
[2023-08-23] MEDS: Gabapentin 100 MG Capsule 200 MG PO (21:40)
[2023-08-23] MEDS: traZODone 50 MG Tablet PO (21:40)
[2023-08-23] MEDS: Lidocaine 5% Patch 1 PATCH TOPICAL (21:40)
[2023-08-23] MEDS: Atorvastatin Calcium 40 MG Tablet PO (21:40)
[2023-08-23 22:04] LABS: Bedside Glucose 107 mg/dL (74-106)
[2023-08-24] VITALS (8 sets, daily range): BP systolic 128–164; BP diastolic 67–81; PULSE 61–75; RESP 16–18; TEMP 36.5–37.1; O2SAT 95–100; BMI 23.3
[2023-08-24] MEDS: Benztropine Mesylate 0.5 MG TABLET 1 MG PO ×3 (06:27→20:25)
[2023-08-24] MEDS: Gabapentin 100 MG Capsule PO ×2 (06:27→13:42)
[2023-08-24 07:37] LABS: Bedside Glucose 98 mg/dL (74-106)
[2023-08-24] MEDS: Glucerna Shake 120 ML LIQUID PO ×2 (08:36→12:03)
[2023-08-24] MEDS: Aspirin 81 MG TAB.CHEW PO (08:38)
[2023-08-24] MEDS: Folic Acid 1 MG Tablet PO (08:38)
[2023-08-24] MEDS: Fludrocortisone Acetate 0.1 MG Tablet 0.100000000000000006 MG PO (08:39)
[2023-08-24] MEDS: LURASIDONE HCL 120 MG TABLET PO (08:39)
--- NOTE | 2023-08-24 10:12 | PCM.PN.HOSP ---
Reason for Visit Reason for Visit: Diagnoses Dehydration (08/20/23) Hypokalemia (08/20/23) Acute kidney failure, unspecified (08/20/23) Chronic kidney disease, stage 3b (08/20/23) Acute cystitis without hematuria (08/20/23) Altered mental status, unspecified (08/20/23) Other malaise (08/20/23) Subjective Subjective No acute events overnight. Patient seen at bedside this morning. Patient was working with physical therapy when I saw her, was walking around the room with her 4-point walker and doing well with this. She had good mentation this morning, improved from yesterday. Answering questions appropriately for me. Denied any acute pain or discomfort at this time. No other acute concerns this morning. Objective Data Objective Data Vital Signs: Vital Signs Temp Pulse Resp BP Pulse Ox O2 Del Method 98.7 F 63 16 164/75 H 95 Room Air 08/24/23 08:24 08/24/23 08:24 08/24/23 08:24 08/24/23 08:24 08/24/23 09:06 08/24/23 09:06 Oxygen Delivery Method Room Air Weight: 62.1 kg Body Mass Index (BMI) 23.3 Intake & Output: Intake and Output for Last 24 Hours 08/22/23 08/23/23 08/24/23 23:59 23:59 23:59 Intake Total 3535 / 3535 400.00 / 400.00 Balance 3535 / 3535 400.00 / 400.00 Medical Nutrition Assessment Dietitian: Malnutrition Criteria Met Start: 08/21/23 12:38 Freq: Status: Active Protocol: Document 08/21/23 12:38 YESENIA (Rec: 08/21/23 12:38 YESENIA [id number]) Nutrition Malnutrition Evidence of Malnutrition Exists Yes Malnutrition (severe): Acute Illness/Injury Evidenced By Suboptimal Energy Intake ( Severe),Weight Loss (Severe), Physical Changes (Severe) Clinical Problem Acute Disease or Injury Related Malnutrition Etiology related to inadequate energy intake Signs/Symptoms as evidenced by 24.5% unintended wt loss, po intake meeting <75% of est nutritional needs x < 1 month and obvious fat/muscle loss throughout body Status Active Problem Recommendation Dietitian Recommendations/Changes Will liberalize diet to Regular No Added Salt w/ consistency per CARDIAC/VASCULAR SONOGRAPHER d/t signs and symptoms of malnutrition Will continue baldemar guadarramad w/ medpass Rec consider appetite stimulant for increased po intake Lab / Micro Data 08/23/23 05:57 08/23/23 05:57 Labs: Laboratory Results - last 24 hr 08/23/23 11:38: POC Glucose 111 H 08/23/23 16:04: POC Glucose 98 08/23/23 21:37: POC Glucose 107 H 08/24/23 07:16: POC Glucose 98 Micro: Microbiology 08/20/23 18:35 Urine, Random Urine Culture - Final GPC Poss Enterococcus sp Physical Exam Const alert, no apparent distress and average body habitus Constitutional Narrative: Middle-aged female, chronically ill-appearing, walking with 4-point walker with the assistance of therapy, answering questions appropriately, appears somewhat weak but otherwise in no acute pain or distress. General Appearance: cooperative and comfortable HEENT normocephalic, head/scalp atraumatic, hearing grossly normal bilaterally and nasal mucous membranes and turbinates normal HEENT Narrative: Poor dentition, missing multiple teeth. Eyes PERRL, EOMs intact bilaterally and conjunctivae normal Chest inspection of chest normal Resp normal respiratory effort, normal air movement, no use of accessory muscles and clear to auscultation bilaterally Cardio regular rate, regular rhythm, no murmurs and peripheral pulses 2+ throughout GI normal to inspection, nondistended, normoactive bowel sounds, soft to palpation, non-tender and non-distended Back/Spine normal ROM Extremity normal to inspection, full ROM and no pedal edema Skin no rashes or lesions noted Neuro no focal motor deficits and no sensory deficits noted Psych mental status grossly normal Assessment & Plan Assessment/Plan (1) Debility: (2) Acute kidney injury: PLAN: Plan Patient is a 57-year-old female who presented [facility] ED on 08/20/2023 with worsening weakness. 1. ZOEY secondary to dehydration, resolved ? Creatinine 1.94 on admit, baseline between 1.0-1.2. Presumed prerenal etiology due to dehydration, resolved by 08/21. No need for more IV fluids, encourage p.o. intake, no need to monitor BMP further. 2. Debility ? PT/OT/case management following. Planning for SNF on discharge, awaiting acceptance and pre-CERT, medically stable for discharge on 08/21. 3. Bacteriuria ? UA suspicious for infection on admission so urine culture was sent. Urine culture showing possible Enterococcus however colony counts were only between 1000 and 10,000. Discontinued ceftriaxone on 08/21. 4. Toxic/metabolic encephalopathy, resolved ? Suspected secondary to dehydration on admit as noted above with possible degree of mild chronic cognitive impairment. Drug screen positive for MDMA however this was likely related to her home medications and cross-reactivity. TSH normal, B12 and folate unremarkable. Resolved. 5. Hypokalemia, hypomagnesemia ? Resolved. Chronic medical conditions: ? HTN, HPL: Continue home metoprolol, losartan, statin. ? Type 2 diabetes mellitus: A1c therapeutic on admit. Continue sliding scale insulin while inpatient. Appears to be diet controlled at home. ? Pulmonary hypertension: Continue outpatient follow-up. ? Neuropathy: Continue gabapentin. ? Urinary incontinence: Continue home oxybutynin. ? Depression, history of SI, PTSD: Continue home Cogentin, Latuda, prazosin, sertraline, trazodone. DVT prophylaxis: Lovenox CODE STATUS: Full code, verified Expected disposition: SNF, medically ready for discharge on 08/21, awaiting acceptance and pre-CERT Total clinical time spent by myself addressing the patient's medical issues, reviewing all the data, and collaborating with patient's care team: 25 minutes. Charges/Coding Visit Charges Inpatient E&M: 1000[address] [facility] Hosp L1
[2023-08-24] MEDS: Losartan Potassium 25 MG Tablet PO (10:13)
[2023-08-24] MEDS: Tolterodine Tartrate 2 MG CAP.SA PO (10:13)
[2023-08-24] MEDS: Metoprolol Tartrate 25 MG Tablet 12.5 MG PO ×2 (10:13→20:23)
[2023-08-24] MEDS: Enoxaparin 40 MG/0.4 ML Syringe SC (10:15)
[2023-08-24] MEDS: Clotrimazole 1 APPLIC Tube TOPICAL ×2 (10:15→20:19)
[2023-08-24] MEDS: Pantoprazole Sodium 40 MG Tablet PO (10:15)
[2023-08-24] MEDS: Sertraline 50 MG Tablet PO (10:16)
[2023-08-24 11:40] LABS: Bedside Glucose 145 mg/dL (74-106)
[2023-08-24] MEDS: Gabapentin 100 MG Capsule 200 MG PO (20:17)
[2023-08-24] MEDS: Acetaminophen 325 MG Tablet 650 MG PO (20:18)
[2023-08-24] MEDS: MELATONIN 3 MG TABLET PO (20:18)
[2023-08-24] MEDS: Lidocaine 5% Patch 1 PATCH TOPICAL (20:18)
[2023-08-24] MEDS: Atorvastatin Calcium 40 MG Tablet PO (20:20)
[2023-08-24] MEDS: Doxazosin 1 MG Tablet 2 MG PO (20:20)
[2023-08-24] MEDS: traZODone 50 MG Tablet PO (20:23)
[2023-08-25] VITALS (7 sets, daily range): BP systolic 143–175; BP diastolic 70–90; PULSE 57–74; RESP 16–18; TEMP 36.6–36.9; O2SAT 100; BMI 23.6
[2023-08-25] MEDS: Benztropine Mesylate 0.5 MG TABLET 1 MG PO ×3 (05:10→22:46)
[2023-08-25] MEDS: Gabapentin 100 MG Capsule PO ×2 (05:10→15:22)
[2023-08-25] MEDS: LURASIDONE HCL 120 MG TABLET PO (08:18)
[2023-08-25] MEDS: Fludrocortisone Acetate 0.1 MG Tablet 0.100000000000000006 MG PO (08:18)
[2023-08-25] MEDS: Folic Acid 1 MG Tablet PO (08:19)
[2023-08-25] MEDS: Aspirin 81 MG TAB.CHEW PO (08:19)
[2023-08-25] MEDS: Losartan Potassium 25 MG Tablet PO (09:59)
[2023-08-25] MEDS: Tolterodine Tartrate 2 MG CAP.SA PO (09:59)
[2023-08-25] MEDS: Clotrimazole 1 APPLIC Tube TOPICAL ×2 (10:00→22:44)
[2023-08-25] MEDS: Metoprolol Tartrate 25 MG Tablet 12.5 MG PO ×2 (10:00→22:45)
[2023-08-25] MEDS: Sertraline 50 MG Tablet PO (10:01)
[2023-08-25] MEDS: Pantoprazole Sodium 40 MG Tablet PO (10:01)
[2023-08-25] MEDS: Enoxaparin 40 MG/0.4 ML Syringe SC (10:01)
--- NOTE | 2023-08-25 12:51 | PCM.TXEXTCAR ---
Diet Diet Order/Speech Therapy: 08/21/23 12:38 Diet: Regular - No Added Salt Food consistency:: Easy to Chew Liquid Consistency:: Regular/Thin Is pt able to select menu?: No Routine Orders/Code Status Code Status: Full Code Therapies Weight Bearing: Full weight bearing Physical Therapy: Eval and Treat Occupational Therapy: Eval and Treat Problem/Diagnosis (1) Debility: Status: Acute Code(s): R53.81 - Other malaise (2) Acute kidney injury: Status: Acute Code(s): N17.9 - Acute kidney failure, unspecified Plan Patient is a 57-year-old female who presented [facility] ED on 08/20/2023 with worsening weakness. Hospital course as noted below. Patient discharged to halfway facility in stable condition on 08/24. 1. ZOEY secondary to dehydration, resolved ? Creatinine 1.94 on admit, baseline between 1.0-1.2. Presumed prerenal etiology due to dehydration, resolved by 08/21. No need for more IV fluids, encourage p.o. intake, no need to monitor BMP further. 2. Debility ? PT/OT/case management followed. Medically ready for discharge by 08/21, discharged to skilled nurse facility in stable condition on 08/24. 3. Bacteriuria ? UA suspicious for infection on admission so urine culture was sent. Urine culture showing possible Enterococcus however colony counts were only between 1000 and 10,000. Discontinued ceftriaxone on 08/21. 4. Toxic/metabolic encephalopathy, resolved ? Suspected secondary to dehydration on admit as noted above with possible degree of mild chronic cognitive impairment. Drug screen positive for MDMA however this was likely related to her home medications and cross-reactivity. TSH normal, B12 and folate unremarkable. Resolved. 5. Hypokalemia, hypomagnesemia ? Resolved. Chronic medical conditions: ? HTN, HPL: Continue home metoprolol, losartan, statin. ? Type 2 diabetes mellitus: A1c therapeutic on admit. Continue sliding scale insulin while inpatient. Appears to be diet controlled at home, no need for any diabetes related medications on discharge. ? Pulmonary hypertension: Continue outpatient follow-up. ? Neuropathy: Continue gabapentin. ? Urinary incontinence: Continue home oxybutynin. ? Depression, history of SI, PTSD: Continue home Cogentin, Latuda, prazosin, sertraline, trazodone. Total clinical time spent by myself addressing the patient's medical issues, reviewing all the data, and collaborating with patient's care team: 25 minutes. Allergies/Procedures Done in Hospital Allergies aspartame Allergy (Verified 08/20/23 17:44) Swelling latex Allergy (Verified 08/20/23 17:44) Unknown Penicillins Allergy (Verified 08/20/23 17:44) Laryngospasms Procedures: - (CT brain without contrast, chest x-ray, renal ultrasound) Type of Care/Length of Stay Estimated LOS: Convalescent Care Less Than 30 days Type of Care Needed: Skilled Rehab Potential: Fair Prognosis: Fair Additional Orders/Day of Discharge H&P will serve as current which was dated: 08/20/23 Day of Discharge: 08/25/23 Dietary and Speech Recommendations Dietitian Recommendations/Changes: Continue Regular No Added Salt to manage medical conditions Will increase glucerna shake to 120mL 4x daily w/ medpass to provide supplemental energy Discharge Plan Admission Admit Date/Time: 08/20/23 20:24 Attending Provider: Efra Rodas Primary Care Provider: Trudy Ordaz Consulting Providers: Michael Waite; Zoë Perez Discharge Orders/Prescriptions Prescriptions: No Action albuterol sulfate 2.5 mg /3 mL (0.083 %) solution for nebulization 2.5 mg INHALATION Q4H PRN (Reason: shortness of breath or wheezing) Qty: 180 3RF prazosin 1 mg capsule 3 mg PO QHS lidocaine 5 % adhesive patch,medicated 1 patch topical QHS Rx Instructions: leave on most painful area for up to 12 hrs benztropine 1 mg tablet 1 mg PO TID trazodone 50 mg tablet 50 mg PO QHS ondansetron HCl 4 mg tablet 4 mg PO Q6H PRN (Reason: nausea and vomiting) lurasidone 120 mg tablet 120 mg PO DAILY Rx Instructions: must administer with food (at least 350 calories) gabapentin 100 mg capsule See Rx Instructions .ROUTE .COMPLEX Dose Instruction: TAKE 1 CAPSULE BY MOUTH IN THE MORNING and 2 CAPSULES AT BEDTIME for nerve pain Rx Instructions: TAKE 1 CAPSULE BY MOUTH IN THE MORNING AND AFTERNOON; and 2 CAPSULES AT BEDTIME for nerve pain clotrimazole 1 % cream 1 applic topical BID coenzyme Q10 [Co Q-10] 100 mg capsule 200 mg PO DAILY aspirin 81 mg Tablet,Chewable 81 mg PO BREAKFAST 30 Days Qty: 30 0RF metoprolol tartrate 25 mg Tablet 12.5 mg PO BID 30 Days Qty: 30 0RF ondansetron 4 mg tablet,disintegrating 4 mg PO Q8H PRN PRN (Reason: Nausea) Qty: 14 0RF fludrocortisone 0.1 mg tablet See Rx Instructions .ROUTE .COMPLEX Qty: 30 12RF Dose Instruction: TAKE 1 TABLET BY MOUTH DAILY at 8 am. Rx Instructions: TAKE 1 TABLET BY MOUTH DAILY at 8 am. (DME) walker Misc See Rx Instructions .Route Qty: 1 0RF Rx Instructions: To be used during ambulation (DME) compress.stocking,knee,reg,lrg Misc See Rx Instructions .MEDSUPPLY Qty: 2 1RF Rx Instructions: wear daily for venous insufficiency 20-30 mmHg (DME) lancets [FreeStyle Lancets] 28 gauge misc See Rx Instructions .MEDSUPPLY Qty: 200 3RF Rx Instructions: check blood glucose 3x daily for type 2 DM (DME) pen needle, diabetic [Comfort EZ [place]] 31 gauge x 3/16 needle See Rx Instructions .ROUTE .MEDSUPPLY Qty: 100 1RF Rx Instructions: uSE TO INJECT INSULIN 4 TIMES DAILY UNDER THE SKIN DX DIABETES E11.9 (DME) blood-glucose meter [FreeStyle Lite Meter] Kit See Rx Instructions .MEDSUPPLY Qty: 1 0RF Rx Instructions: As directed, check blood glucose 3x daily for type 2 DM (DME) FreeStyle Lite Strips Strip See Rx Instructions .MEDSUPPLY Qty: 100 3RF Rx Instructions: check blood glucose 3x daily for type 2 DM albuterol sulfate [ProAir HFA] 90 mcg/actuation HFA aerosol inhaler 1 - 2 puff INHALATION Q6H PRN (Reason: shortness of breath or wheezing) Qty: 8.5 1RF atorvastatin 40 mg tablet 40 mg PO QHS Qty: 90 1RF folic acid 1 mg tablet 1 mg PO DAILY@0800 Qty: 90 1RF losartan 25 mg tablet 25 mg PO DAILY 90 Days Qty: 90 1RF oxybutynin chloride 10 mg tablet extended release 24hr 10 mg PO DAILY Qty: 90 0RF pantoprazole 40 mg tablet,delayed release (DR/EC) 40 mg PO DAILY Qty: 90 1RF sertraline 50 mg tablet 50 mg PO DAILY Qty: 90 1RF Referrals / Follow Up: Trudy Ordaz MD [Primary Care Provider] - Charges/Coding Visit Charges Inpatient E&M: 86055 Disch Hosp
--- NOTE | 2023-08-25 12:55 | PCM.DC.SUM ---
Providers Date of Admission: 08/20/23 Date of Discharge: 08/25/23 Primary Care Physician: Dr. Trudy Ordaz MD Reason For Visit: UTI, HYPOKALEMIA, ZOEY AND METABOLIC ENCEPHALOPATHY Diagnosis Discharge Diagnosis (1) Debility: Status: Acute Code(s): R53.81 - Other malaise (2) Acute kidney injury: Status: Acute Code(s): N17.9 - Acute kidney failure, unspecified Medications at Discharge Home Medications albuterol sulfate 2.5 mg/3 mL (0.083 %) solution for nebulization 2.5 mg (3 mL) inhalation Q4H PRN shortness of breath or wheezing #180 mL 05/03/19 fludrocortisone 0.1 mg tablet See Rx Instructions .Route .COMPLEX #30 tabs 11/09/22 benztropine 1 mg tablet 1 mg PO TID 06/18/23 clotrimazole 1 % topical cream 1 applic topical BID 06/18/23 gabapentin 100 mg capsule See Rx Instructions .Route .COMPLEX 06/18/23 lidocaine 5 % topical patch 1 patch topical QHS 06/18/23 lurasidone 120 mg tablet 120 mg PO DAILY 06/18/23 ondansetron HCl 4 mg tablet 4 mg PO Q6H PRN nausea and vomiting 06/18/23 prazosin 1 mg capsule 3 mg PO QHS 06/18/23 trazodone 50 mg tablet 50 mg PO QHS 06/18/23 walker #1 ea 06/27/23 compress.stocking,knee,reg,lrg #2 ea 07/01/23 blood sugar diagnostic (FreeStyle Lite Strips) #100 ea 07/09/23 blood-glucose meter (FreeStyle Lite Meter kit) #1 ea 07/09/23 lancets 28 gauge (FreeStyle Lancets) #200 ea 07/09/23 pen needle, diabetic 31 gauge x 3/16 (Comfort EZ [place]) #100 ea 07/09/23 albuterol sulfate 90 mcg/actuation aerosol inhaler (ProAir HFA) 1 - 2 puff inhalation Q6H PRN shortness of breath or wheezing #8.5 grams 07/20/23 atorvastatin 40 mg tablet 40 mg PO QHS cholesterol #90 tabs 07/20/23 folic acid 1 mg tablet 1 mg PO DAILY@0800 supplement #90 tabs 07/20/23 losartan 25 mg tablet 25 mg PO DAILY 90 days #90 tabs 07/20/23 oxybutynin chloride 10 mg tablet,extended release 24 hr 10 mg PO DAILY #90 tabs 07/20/23 pantoprazole 40 mg tablet,delayed release 40 mg PO DAILY GERD #90 tabs 07/20/23 sertraline 50 mg tablet 50 mg PO DAILY depression #90 tabs 07/20/23 coenzyme Q10 100 mg capsule (Co Q-10) 200 mg PO DAILY 07/29/23 aspirin 81 mg chewable tablet 81 mg PO BREAKFAST 30 days #30 tabs 07/31/23 metoprolol tartrate 25 mg tablet 12.5 mg (1/2 x 25 mg) PO BID 30 days #30 tabs 07/31/23 ondansetron 4 mg disintegrating tablet 4 mg PO Q8H PRN PRN Nausea #14 tabs 08/04/23 acidophilus 25 million cell-pectin, citrus 100 mg tablet 2 tab PO BID #0 tabs 08/25/23 nutrition tx glu intol,lac-free,soy-fiber 0.06 gram-1.2 kcal/mL liquid (Glucerna 1.2 [place]) 120 ml PO 4X/DAY #0 mL 08/25/23 Hospital Course Operations None Procedures - (CT brain w/o contrast, CXR, renal US) Summary of Care Provided Minutes Spent on Discharge: 25 Hospital Course: Patient is a 57-year-old female who presented [facility] ED on 08/20/2023 with worsening weakness. Hospital course as noted below. [facility] on 08/24. 1. ZOEY secondary to dehydration, resolved ? Creatinine 1.94 on admit, baseline between 1.0-1.2. Presumed prerenal etiology due to dehydration, resolved by 08/21. No need for more IV fluids, encourage p.o. intake, no need to monitor BMP further. 2. Debility ? PT/OT/case management followed. Medically ready for discharge by 08/21, discharged to skilled nurse facility in stable condition on 08/24. 3. Bacteriuria ? UA suspicious for infection on admission so urine culture was sent. Urine culture showing possible Enterococcus however colony counts were only between 1000 and 10,000. Discontinued ceftriaxone on 08/21. 4. Toxic/metabolic encephalopathy, resolved ? Suspected secondary to dehydration on admit as noted above with possible degree of mild chronic cognitive impairment. Drug screen positive for MDMA however this was likely related to her home medications and cross-reactivity. TSH normal, B12 and folate unremarkable. Resolved. 5. Hypokalemia, hypomagnesemia ? Resolved. Chronic medical conditions: ? HTN, HPL: Continue home metoprolol, losartan, statin. ? Type 2 diabetes mellitus: A1c therapeutic on admit. Continue sliding scale insulin while inpatient. Appears to be diet controlled at home, no need for any diabetes related medications on discharge. ? Pulmonary hypertension: Continue outpatient follow-up. ? Neuropathy: Continue gabapentin. ? Urinary incontinence: Continue home oxybutynin. ? Depression, history of SI, PTSD: Continue home Cogentin, Latuda, prazosin, sertraline, trazodone. Total clinical time spent by myself addressing the patient's medical issues, reviewing all the data, and collaborating with patient's care team: 25 minutes. Physical Exam Const alert, no apparent distress and average body habitus Constitutional Narrative: Middle-aged female, chronically ill-appearing, sitting comfortably in bedside chair, answering questions appropriately, appears somewhat weak but otherwise in no acute pain or distress. General Appearance: cooperative and comfortable HEENT normocephalic, head/scalp atraumatic, hearing grossly normal bilaterally and nasal mucous membranes and turbinates normal HEENT Narrative: Poor dentition, missing multiple teeth. Eyes PERRL, EOMs intact bilaterally and conjunctivae normal Chest inspection of chest normal Resp normal respiratory effort, normal air movement, no use of accessory muscles and clear to auscultation bilaterally Cardio regular rate, regular rhythm, no murmurs and peripheral pulses 2+ throughout GI normal to inspection, nondistended, normoactive bowel sounds, soft to palpation, non-tender and non-distended Back/Spine normal ROM Extremity normal to inspection, full ROM and no pedal edema Skin no rashes or lesions noted Neuro no focal motor deficits and no sensory deficits noted Psych mental status grossly normal Medical Records Data Medical Nutrition Assessment Dietitian: Malnutrition Criteria Met Start: 08/21/23 12:38 Freq: Status: Active Protocol: Document 08/21/23 12:38 YESENIA (Rec: 08/21/23 12:38 YESENIA [id number]) Nutrition Malnutrition Evidence of Malnutrition Exists Yes Malnutrition (severe): Acute Illness/Injury Evidenced By Suboptimal Energy Intake ( Severe),Weight Loss (Severe), Physical Changes (Severe) Clinical Problem Acute Disease or Injury Related Malnutrition Etiology related to inadequate energy intake Signs/Symptoms as evidenced by 24.5% unintended wt loss, po intake meeting <75% of est nutritional needs x < 1 month and obvious fat/muscle loss throughout body Status Active Problem Recommendation Dietitian Recommendations/Changes Will liberalize diet to Regular No Added Salt w/ consistency per SECURE SOFTWARE ASSESSOR d/t signs and symptoms of malnutrition Will continue glucerna shake tid w/ medpass Rec consider appetite stimulant for increased po intake Weight / BMI Weight Weight: 62.3 kg Body Mass Index (BMI) 23.6 ABG / Lab / Microbiology Data 08/23/23 05:57 08/23/23 05:57 Microbiology: Microbiology 08/20/23 18:35 Urine, Random Urine Culture - Final GPC Poss Enterococcus sp Meaningful Use Info Meaningful Use Diagnoses (Choose all that apply): None applicable Discharge Plan Admission Admit Date/Time: 08/20/23 20:24 Primary Reason for Your Visit: Weakness, dehydration Attending Provider: Efra Rodas Primary Care Provider: Trudy Ordaz Consulting Providers: Michael Waite; Zoë Perez Discharge Orders/Prescriptions Prescriptions: New Glucerna 1.2 [place] 0.06-1.2 gram-kcal/mL Liquid 120 ml PO 4X/DAY Qty: 0 0RF acidophilus-pectin, citrus 25 million cell -100 mg Tablet 2 tab PO BID Qty: 0 0RF Continued albuterol sulfate 2.5 mg /3 mL (0.083 %) solution for nebulization 2.5 mg INHALATION Q4H PRN (Reason: shortness of breath or wheezing) Qty: 180 3RF prazosin 1 mg capsule 3 mg PO QHS lidocaine 5 % adhesive patch,medicated 1 patch topical QHS Rx Instructions: leave on most painful area for up to 12 hrs benztropine 1 mg tablet 1 mg PO TID trazodone 50 mg tablet 50 mg PO QHS ondansetron HCl 4 mg tablet 4 mg PO Q6H PRN (Reason: nausea and vomiting) lurasidone 120 mg tablet 120 mg PO DAILY Rx Instructions: must administer with food (at least 350 calories) gabapentin 100 mg capsule See Rx Instructions .ROUTE .COMPLEX Dose Instruction: TAKE 1 CAPSULE BY MOUTH IN THE MORNING and 2 CAPSULES AT BEDTIME for nerve pain Rx Instructions: TAKE 1 CAPSULE BY MOUTH IN THE MORNING AND AFTERNOON; and 2 CAPSULES AT BEDTIME for nerve pain clotrimazole 1 % cream 1 applic topical BID coenzyme Q10 [Co Q-10] 100 mg capsule 200 mg PO DAILY aspirin 81 mg Tablet,Chewable 81 mg PO BREAKFAST 30 Days Qty: 30 0RF metoprolol tartrate 25 mg Tablet 12.5 mg PO BID 30 Days Qty: 30 0RF ondansetron 4 mg tablet,disintegrating 4 mg PO Q8H PRN PRN (Reason: Nausea) Qty: 14 0RF fludrocortisone 0.1 mg tablet See Rx Instructions .ROUTE .COMPLEX Qty: 30 12RF Dose Instruction: TAKE 1 TABLET BY MOUTH DAILY at 8 am. Rx Instructions: TAKE 1 TABLET BY MOUTH DAILY at 8 am. (DME) walker Misc See Rx Instructions .Route Qty: 1 0RF Rx Instructions: To be used during ambulation (DME) compress.stocking,knee,reg,lrg Misc See Rx Instructions .MEDSUPPLY Qty: 2 1RF Rx Instructions: wear daily for venous insufficiency 20-30 mmHg (DME) lancets [FreeStyle Lancets] 28 gauge misc See Rx Instructions .MEDSUPPLY Qty: 200 3RF Rx Instructions: check blood glucose 3x daily for type 2 DM (DME) pen needle, diabetic [Comfort EZ [place]] 31 gauge x 3/16 needle See Rx Instructions .ROUTE .MEDSUPPLY Qty: 100 1RF Rx Instructions: uSE TO INJECT INSULIN 4 TIMES DAILY UNDER THE SKIN DX DIABETES E11.9 (DME) blood-glucose meter [FreeStyle Lite Meter] Kit See Rx Instructions .MEDSUPPLY Qty: 1 0RF Rx Instructions: As directed, check blood glucose 3x daily for type 2 DM (DME) FreeStyle Lite Strips Strip See Rx Instructions .MEDSUPPLY Qty: 100 3RF Rx Instructions: check blood glucose 3x daily for type 2 DM atorvastatin 40 mg tablet 40 mg PO QHS Qty: 90 1RF folic acid 1 mg tablet 1 mg PO DAILY@0800 Qty: 90 1RF losartan 25 mg tablet 25 mg PO DAILY 90 Days Qty: 90 1RF oxybutynin chloride 10 mg tablet extended release 24hr 10 mg PO DAILY Qty: 90 0RF pantoprazole 40 mg tablet,delayed release (DR/EC) 40 mg PO DAILY Qty: 90 1RF sertraline 50 mg tablet 50 mg PO DAILY Qty: 90 1RF No Action albuterol sulfate [ProAir HFA] 90 mcg/actuation HFA aerosol inhaler 1 - 2 puff INHALATION Q6H PRN (Reason: shortness of breath or wheezing) Qty: 8.5 1RF Referrals / Follow Up: Trudy Ordaz MD [Primary Care Provider] - Disposition Disposition (needs filled in before D/C Order can be placed): [facility] Facility Charges/Coding Visit Charges Inpatient E&M: 12106 Disch Hosp
--- NOTE | 2023-08-25 15:14 | CASEMGMT ---
Social Work Insurance company requesting [id number] to complete authorization process. 7000 exemption form completed in [employer] and sent to [facility] for submission to insurance. Plan: Xim[place], pending KEL [place]
[2023-08-25] MEDS: Glucerna Shake 120 ML LIQUID PO ×3 (15:21→22:44)
--- NOTE | 2023-08-25 16:09 | PN.HOSP_ITS ---
Reason for Visit Reason for Visit: Diagnoses Dehydration (08/20/23) Hypokalemia (08/20/23) Acute kidney failure, unspecified (08/20/23) Chronic kidney disease, stage 3b (08/20/23) Acute cystitis without hematuria (08/20/23) Altered mental status, unspecified (08/20/23) Other malaise (08/20/23) Subjective Subjective No acute events overnight. Patient seen at bedside this morning. Sitting comfortably bedside chair, conversing normally, no acute distress. Denies any acute pain or discomfort this morning. No other acute concerns. Objective Data Objective Data Vital Signs: Vital Signs Temp Pulse Resp BP Pulse Ox O2 Del Method 98.0 F 66 16 159/78 H 100 Room Air 08/25/23 15:12 08/25/23 15:12 08/25/23 15:12 08/25/23 15:12 08/25/23 15:12 08/25/23 15:12 Oxygen Delivery Method Room Air Weight: 62.3 kg Body Mass Index (BMI) 23.6 Intake & Output: Intake and Output for Last 24 Hours 08/23/23 08/24/23 08/25/23 23:59 23:59 23:59 Intake Total 400.00 / 400.00 Balance 400.00 / 400.00 Medical Nutrition Assessment Dietitian: Malnutrition Criteria Met Start: 08/21/23 12:38 Freq: Status: Active Protocol: Document 08/21/23 12:38 YESENIA (Rec: 08/21/23 12:38 [facility] [id number]) Nutrition Malnutrition Evidence of Malnutrition Exists Yes Malnutrition (severe): Acute Illness/Injury Evidenced By Suboptimal Energy Intake ( Severe),Weight Loss (Severe), Physical Changes (Severe) Clinical Problem Acute Disease or Injury Related Malnutrition Etiology related to inadequate energy intake Signs/Symptoms as evidenced by 24.5% unintended wt loss, po intake meeting <75% of est nutritional needs x < 1 month and obvious fat/muscle loss throughout body Status Active Problem Recommendation Dietitian Recommendations/Changes Will liberalize diet to Regular No Added Salt w/ consistency per ACCOUNT DEVELOPMENT MANAGER d/t signs and symptoms of malnutrition Will continue glucerna shake tid w/ medpass Rec consider appetite stimulant for increased po intake Lab / Micro Data 08/23/23 05:57 08/23/23 05:57 Micro: Microbiology 08/20/23 18:35 Urine, Random Urine Culture - Final GPC Poss Enterococcus sp Physical Exam Const alert, no apparent distress and average body habitus Constitutional Narrative: Middle-aged female, chronically ill-appearing, sitting comfortably in bedside chair, answering questions appropriately, appears somewhat weak but otherwise in no acute pain or distress. General Appearance: cooperative and comfortable HEENT normocephalic, head/scalp atraumatic, hearing grossly normal bilaterally and nasal mucous membranes and turbinates normal HEENT Narrative: Poor dentition, missing multiple teeth. Eyes PERRL, EOMs intact bilaterally and conjunctivae normal Chest inspection of chest normal Resp normal respiratory effort, normal air movement, no use of accessory muscles and clear to auscultation bilaterally Cardio regular rate, regular rhythm, no murmurs and peripheral pulses 2+ throughout GI normal to inspection, nondistended, normoactive bowel sounds, soft to palpation, non-tender and non-distended Back/Spine normal ROM Extremity normal to inspection, full ROM and no pedal edema Skin no rashes or lesions noted Neuro no focal motor deficits and no sensory deficits noted Psych mental status grossly normal Assessment & Plan Assessment/Plan (1) Debility: (2) Acute kidney injury: PLAN: Plan Patient is a 57-year-old female who presented [facility] ED on 08/20/2023 with worsening weakness. 1. ZOEY secondary to dehydration, resolved ? Creatinine 1.94 on admit, baseline between 1.0-1.2. Presumed prerenal etiology due to dehydration, resolved by 08/21. No need for more IV fluids, encourage p.o. intake, no need to monitor BMP further. 2. Debility ? PT/OT/case management following. Planning for SNF on discharge, medically stable discharge on 08/21, awaiting pre-CERT. 3. Bacteriuria ? UA suspicious for infection on admission so urine culture was sent. Urine culture showing possible Enterococcus however colony counts were only between 1000 and 10,000. Discontinued ceftriaxone on 08/21. 4. Toxic/metabolic encephalopathy, resolved ? Suspected secondary to dehydration on admit as noted above with possible degree of mild chronic cognitive impairment. Drug screen positive for MDMA however this was likely related to her home medications and cross-reactivity. TSH normal, B12 and folate unremarkable. Resolved. 5. Hypokalemia, hypomagnesemia ? Resolved. Chronic medical conditions: ? HTN, HPL: Continue home metoprolol, losartan, statin. ? Type 2 diabetes mellitus: A1c therapeutic on admit. Continue sliding scale insulin while inpatient. Appears to be diet controlled at home. ? Pulmonary hypertension: Continue outpatient follow-up. ? Neuropathy: Continue gabapentin. ? Urinary incontinence: Continue home oxybutynin. ? Depression, history of SI, PTSD: Continue home Cogentin, Latuda, prazosin, sertraline, trazodone. DVT prophylaxis: Lovenox CODE STATUS: Full code, verified Expected disposition: SNF, medically ready for discharge on 08/21, awaiting pre- CERT Total clinical time spent by myself addressing the patient's medical issues, reviewing all the data, and collaborating with patient's care team: 25 minutes. Charges/Coding Visit Charges Inpatient E&M: 44635 [facility] Hosp L1
[2023-08-25] MEDS: Gabapentin 100 MG Capsule 200 MG PO (22:45)
[2023-08-25] MEDS: Doxazosin 1 MG Tablet 2 MG PO (22:46)
[2023-08-25] MEDS: traZODone 50 MG Tablet PO (22:46)
[2023-08-25] MEDS: Atorvastatin Calcium 40 MG Tablet PO (22:46)
[2023-08-25 23:17] LABS: Bedside Glucose 111 mg/dL (74-106)
[2023-08-26 01:11] VITALS: BMI 24.0
[2023-08-26 02:29] VITALS: BP 143/72; PULSE 66; RESP 16; TEMP 36.6; O2SAT 97
[2023-08-26] MEDS: Benztropine Mesylate 0.5 MG TABLET 1 MG PO ×2 (05:38→13:38)
[2023-08-26] MEDS: Gabapentin 100 MG Capsule PO ×2 (05:38→13:38)
[2023-08-26 07:54] LABS: Bedside Glucose 94 mg/dL (74-106)
[2023-08-26 09:29] VITALS: BP 150/77; PULSE 69; RESP 18; TEMP 36.6; O2SAT 99
[2023-08-26] MEDS: Fludrocortisone Acetate 0.1 MG Tablet 0.100000000000000006 MG PO (09:34)
[2023-08-26] MEDS: Aspirin 81 MG TAB.CHEW PO (09:34)
[2023-08-26 09:35] VITALS: PULSE 69
[2023-08-26] MEDS: Losartan Potassium 25 MG Tablet PO (09:35)
[2023-08-26] MEDS: Enoxaparin 40 MG/0.4 ML Syringe SC (09:35)
[2023-08-26] MEDS: Sertraline 50 MG Tablet PO (09:35)
[2023-08-26] MEDS: Tolterodine Tartrate 2 MG CAP.SA PO (09:35)
[2023-08-26] MEDS: Pantoprazole Sodium 40 MG Tablet PO (09:35)
[2023-08-26] MEDS: Folic Acid 1 MG Tablet PO (09:35)
[2023-08-26] MEDS: Metoprolol Tartrate 25 MG Tablet 12.5 MG PO (09:35)
[2023-08-26] MEDS: LURASIDONE HCL 120 MG TABLET PO (09:36)
[2023-08-26 12:23] VITALS: BP 138/72; PULSE 69; RESP 18; TEMP 36.6; O2SAT 100
--- NOTE | 2023-08-26 12:26 | CASEMGMT ---
Discharge Planning [facility] has obtained auth. Colette Carnes, Discharge Planning Asst.
--- NOTE | 2023-08-26 12:32 | PHA.DC.MR.R ---
Pharmacy [place] Med Reconciliation Pharmacy Service has performed discharge medication reconciliation for this patient. The patient's discharge medication list was reviewed for discrepancies and discrepancies were resolved. Medications at Discharge Home Medications albuterol sulfate 2.5 mg/3 mL (0.083 %) solution for nebulization 2.5 mg (3 mL) inhalation Q4H PRN shortness of breath or wheezing #180 mL 05/03/19 fludrocortisone 0.1 mg tablet See Rx Instructions .Route .COMPLEX #30 tabs 11/09/22 benztropine 1 mg tablet 1 mg PO TID 06/18/23 clotrimazole 1 % topical cream 1 applic topical BID 06/18/23 gabapentin 100 mg capsule See Rx Instructions .Route .COMPLEX 06/18/23 lidocaine 5 % topical patch 1 patch topical QHS 06/18/23 lurasidone 120 mg tablet 120 mg PO DAILY 06/18/23 ondansetron HCl 4 mg tablet 4 mg PO Q6H PRN nausea and vomiting 06/18/23 prazosin 1 mg capsule 3 mg PO QHS 06/18/23 trazodone 50 mg tablet 50 mg PO QHS 06/18/23 walker #1 ea 06/27/23 compress.stocking,knee,reg,lrg #2 ea 07/01/23 blood sugar diagnostic (FreeStyle Lite Strips) #100 ea 07/09/23 blood-glucose meter (FreeStyle Lite Meter kit) #1 ea 07/09/23 lancets 28 gauge (FreeStyle Lancets) #200 ea 07/09/23 pen needle, diabetic 31 gauge x 3/16 (Comfort EZ Pen [place]) #100 ea 07/09/23 albuterol sulfate 90 mcg/actuation aerosol inhaler (ProAir HFA) 1 - 2 puff inhalation Q6H PRN shortness of breath or wheezing #8.5 grams 07/20/23 atorvastatin 40 mg tablet 40 mg PO QHS cholesterol #90 tabs 07/20/23 folic acid 1 mg tablet 1 mg PO DAILY@0800 supplement #90 tabs 07/20/23 losartan 25 mg tablet 25 mg PO DAILY 90 days #90 tabs 07/20/23 oxybutynin chloride 10 mg tablet,extended release 24 hr 10 mg PO DAILY #90 tabs 07/20/23 pantoprazole 40 mg tablet,delayed release 40 mg PO DAILY GERD #90 tabs 07/20/23 sertraline 50 mg tablet 50 mg PO DAILY depression #90 tabs 07/20/23 coenzyme Q10 100 mg capsule (Co Q-10) 200 mg PO DAILY 07/29/23 aspirin 81 mg chewable tablet 81 mg PO BREAKFAST 30 days #30 tabs 07/31/23 metoprolol tartrate 25 mg tablet 12.5 mg (1/2 x 25 mg) PO BID 30 days #30 tabs 07/31/23 ondansetron 4 mg disintegrating tablet 4 mg PO Q8H PRN PRN Nausea #14 tabs 08/04/23 acidophilus 25 million cell-pectin, citrus 100 mg tablet 2 tab PO BID #0 tabs 08/25/23 nutrition tx glu intol,lac-free,soy-fiber 0.06 gram-1.2 kcal/mL liquid (Glucerna 1.2 [place]) 120 ml PO 4X/DAY #0 mL 08/25/23
[2023-08-26 12:42] LABS: Bedside Glucose 144 mg/dL (74-106)
--- NOTE | 2023-08-26 12:58 | CASEMGMT ---
Social Work Precert has been obtained for pt to admit to [facility]. Physician notified and pt is ready for dc today. DC assistant executive housekeeper updated and to complete discharge. Disposition: [facility], skilled level of care under convalescent stay KEL Cardenas
--- NOTE | 2023-08-26 13:19 | CASEMGMT ---
Discharge Planning Discharge orders, signed med list, and transport time sent via [facility] to [facility]. Physicians will transport patient by cot at 2:30p. Nursing, SW, patient, and her updated. Colette Carnes, Discharge Planning Asst.
--- NOTE | 2023-08-26 13:59 | NURSING ---
Tried to call Maria C HERNANDEZ was on hold 7 min will try again later.
--- NOTE | 2023-08-26 14:27 | NURSING ---
Report called to Landy Lombardi [phone]. Pt to be picked up at 14:30.
== END 2023-08-26 14:15 | disposition skilled nursing facility (03) | DRG 469 ==
LOC: ED 19:14 → MS3 20:51
PROVIDERS: Internal Medicine; Physician Assistant; Admitting Provider Internal Medicine; Emergency Provider Emergency Medicine; PCP Internal Medicine; Visit Provider Hospitalist
DX: N17.9 Acute kidney failure, unspecified (principal); G92.8 Other toxic encephalopathy; E43 Unspecified severe protein-calorie malnutrition; I27.20 Pulmonary hypertension, unspecified; E11.22 Type 2 diabetes mellitus with diabetic chronic kidney disease; E86.0 Dehydration; I13.0 Hypertensive heart and chronic kidney disease with heart failure and stage 1 through stage 4 chronic kidney disease, or unspecified chronic kidney disease; N18.32 Chronic kidney disease, stage 3b; I50.9 Heart failure, unspecified; E11.40 Type 2 diabetes mellitus with diabetic neuropathy, unspecified; E78.5 Hyperlipidemia, unspecified; E87.6 Hypokalemia; F41.8 Other specified anxiety disorders; K21.9 Gastro-esophageal reflux disease without esophagitis; E83.42 Hypomagnesemia; R82.71 Bacteriuria; R53.81 Other malaise; Z79.899 Other long term (current) drug therapy; Z79.82 Long term (current) use of aspirin; Z90.49 Acquired absence of other specified parts of digestive tract; R32 Unspecified urinary incontinence; F43.10 Post-traumatic stress disorder, unspecified; Z68.23 Body mass index [BMI] 23.0-23.9, adult
CPT/HCPCS: 36415; 70450; 71045; 76770; 80048; 80053; 80307; 81001; 82607; 82746; 82962; 83036; 83735; 84100; 84443; 85025; 87086; 87088; 92526; 92610; 94668; 97110; 97116; 97162; 97166; 97530; 97535; 97802; 99285; J7030; J7050; J7120; P9612; A4216

== ENCOUNTER 2023-12-30 01:09 | Inpatient (IN) | payer MEDICAID, SELFPAY ==
[2023-12-30] VITALS (18 sets, daily range): BP systolic 152–185; BP diastolic 65–91; PULSE 68–80; RESP 16–20; TEMP 36.3–37; O2SAT 92–99; BMI 32.5; BMI 31.8; BMI 31.7
--- NOTE | 2023-12-30 01:48 | EKG12_ITS ---
Test Reason : ABD. PAIN Blood Pressure : / mmHG Vent. Rate : 069 BPM Atrial Rate : 069 BPM P-R Int : 188 ms QRS Dur : 076 ms QT Int : 436 ms P-R-T Axes : 054 -01 057 degrees QTc Int : 467 ms Normal sinus rhythm Low voltage QRS Nonspecific ST and T wave abnormality Prolonged QT Abnormal ECG Confirmed by KRYSTINA TELLEZ, ZAHRAA ([id number]), supervising editor news reel DIDIER TRIPLETT ([id number]) on 01/05/2024 10:34:57 A M Referred By: ALONSO Confirmed By:SPARKLE FLAHERTY MD
--- NOTE | 2023-12-30 01:48 | RAD_ITS ---
INDICATION: sob, cough EXAMINATION/TECHNIQUE: X-RAY - XR Chest 2 Views COMPARISON: August 20 2023. FINDINGS: LINES/DEVICES: None. LUNGS: Medial right lower lobe and bilateral basilar airspace consolidations with small effusions and superimposed linear atelectasis. No pneumothorax. MEDIASTINUM AND CARDIOVASCULAR STRUCTURES: Cardiac silhouette not enlarged. BONES AND SOFT TISSUES: Unremarkable. RAD/Chest PA and Lateral IMPRESSION: Findings concerning for bilateral lower lobe pneumonia with small effusion and superimposed atelectasis. Electronically Signed: Trevor Hoffmann MD at 3:13 EDT ,
[2023-12-30] MEDS: Ipratropium/Albuterol Sulfate 3 ML AMPUL.NEB INHALATION (02:00)
[2023-12-30 02:29] LABS: Absolute Lymphocyte Count 1.52 X10^3/uL (0.83-4.51); Absolute Neutrophil Count 3.4 X10^3/uL (2.0-7.7); Basophil# 0.02 X10^3/uL; Basophil% 0.4 % (0-1); Eosinophil# 0.28 X10^3/uL; Hematocrit 27.2 % (37-47); Hemoglobin 9.4 g/dL (12.0-15.0); Lymphocyte # 1.52 X10^3/ul (0.83-4.51); Lymphocyte % 27.1 % (19-41); Mean Corp Hgb Conc 34.6 g/dL (32-36); Mean Corpuscular Hgb 30.9 pg (27.0-32.0); Mean Corpuscular Volume 89.5 fL (81-99); Mean Platelet Vol. 8.9 fl (6.2-12.0); Monocyte# 0.34 X10^3/uL; Monocyte% 6.1 % (0-10); NRBC Flagged by Analyzer 0 % (0-5); Neutrophil # 3.43 X10^3/uL (2.7-7.7); Platelet Count 144 K/mm3 (150-450); RBC Distribution Width CV 13.4 % (11.6-14.6); RBC Distribution Width SD 43.3 fl (35.1-43.9); Red Blood Count 3.04 M/mm3 (4.2-5.4); White Blood Count 5.6 K/mm3 (4.4-11.0)
[2023-12-30 02:48] LABS: ALB/GLOB Ratio 0.5 RATIO (0.9-2.4); AST(SGOT) 20 U/L (15-37); Alanine Aminotransfer ALT/SGPT 12 U/L (13-56); Albumin, Serum 1.7 g/dL (3.2-5.0); Alkaline Phosphatase 200 U/L (45-117); Anion Gap 4 (5-15); BUN 23 mg/dL (7-18); BUN/Creat Ratio 11.7 RATIO (10-20); Calcium,Total 7.6 mg/dL (8.5-10.1); Chloride 113 mmol/L (98-107); Creatinine, Serum 1.97 mg/dL (0.55-1.02); EST Glomerular Filtration Rate 28 mL/min (>60); Est Glom Filt Rate - Afr Amer 33 mL/min (>60); Estimated Creatinine Clearance 32.23 ml/min; Globulin 3.3 g/dL (2.2-4.2); Glucose 178 mg/dL (74-106); Lipase 23 U/L (13-75); Potassium 3.2 mmol/L (3.5-5.1); Sodium Level 144 mmol/L (136-145); Troponin-I HS 12 pg/mL (3.0-54.0)
--- NOTE | 2023-12-30 02:59 | ED.VIS.GI ---
HPI HPI - GI History of Present Illness Chief Complaint: Abd Pain Informant: patient Narrative Narrative: Patient is a 58-year-old female with history of type 2 diabetes mellitus, hypertension, hyperlipidemia, CKD 2, heart failure unspecified and bipolar disorder presenting from [facility] for shortness of breath, chest discomfort as well as epigastric abdominal pain. Patient states has been having the symptoms for at least 10 days and thought it would just go away but when it did not she came to the ER tonight. Patient notes that she feels short of breath. Is uncertain if she normally wears oxygen as patient states she just wears it as needed and nursing reports states that she does not normally wear oxygen but another report to nursing staff states that she does. Patient tells me that she feels she cannot catch her breath and has to yawn to get a big enough breath then. Notes that she has a firmness in her epigastric region but that is been there for quite some time. She states her mother told her it was a hernia. Patient denies any bowel symptoms at this time such as vomiting or change in her bowel movements. No report of any fevers. States that the swelling in her legs is actually improved. [facility] Medical History Syncope and collapse Frequent falls Congestive heart failure Microalbuminuria CKD (chronic kidney disease), stage III Dermatitis Neuropathy Left facial pain TMJ arthritis Lightheadedness Anemia Secondary pulmonary arterial hypertension Orthostatic hypotension Syncope Essential hypertension Seizures Obesity (BMI 30-39.9) Sleep concern Postconcussion syndrome [place] toxicity Abnormal thyroid function test Hypersomnolence Type 2 diabetes mellitus without complications Xerosis cutis Venous insufficiency PVD (peripheral vascular disease) Ulcer of left lower extremity with fat layer exposed Chronic ulcer of left foot with fat layer exposed Diabetic foot ulcer Eczema Hyperglycemia due to type 2 diabetes mellitus OAB (overactive bladder) Bilateral tinnitus Hyperlipidemia Type 2 diabetes mellitus Depression with anxiety Vision problems Vitamin defciency GERD (gastroesophageal reflux disease) Polycystic ovaries Kidney stones Frequent headaches H/O emotional problems Back problem Seasonal allergies Aspiration pneumonia ZOEY (acute kidney injury) Hyperosmolar non-ketotic state in patient with type 2 diabetes mellitus Suicide attempt Toxic encephalopathy Anxiety Hypomagnesemia Hypokalemia Home Medications ?Medication ?Instructions ?Recorded ?Last Taken ?Type albuterol sulfate 2.5 mg/3 mL 2.5 mg (3 mL) inhalation Q4H PRN 05/03/19 Unknown Rx (0.083 %) solution for nebulization shortness of breath or wheezing #180 mL fludrocortisone 0.1 mg tablet See Rx Instructions .Route 11/09/22 Unknown Rx .COMPLEX #30 tabs benztropine 1 mg tablet 1 mg PO TID 06/18/23 Unknown History ondansetron HCl 4 mg tablet 4 mg PO Q6H PRN nausea and vomiting 06/18/23 Unknown History prazosin 1 mg capsule 3 mg PO QHS 06/18/23 Unknown History trazodone 50 mg tablet 50 mg PO QHS 06/18/23 Unknown History walker #1 ea 06/27/23 Unknown Rx compress.stocking,knee,reg,lrg #2 ea 07/01/23 Unknown Rx blood sugar diagnostic (FreeStyle #100 ea 07/09/23 Unknown Rx Lite Strips) blood-glucose meter (FreeStyle #1 ea 07/09/23 Unknown Rx Lite Meter kit) lancets 28 gauge (FreeStyle #200 ea 07/09/23 Unknown Rx Lancets) pen needle, diabetic 31 gauge x #100 ea 07/09/23 Unknown Rx 3/16 (Comfort EZ Pen [place]) albuterol sulfate 90 mcg/actuation 1 - 2 puff inhalation Q6H PRN 07/20/23 Unknown Rx aerosol inhaler (ProAir HFA) shortness of breath or wheezing #8.5 grams atorvastatin 40 mg tablet 40 mg PO QHS cholesterol #90 tabs 07/20/23 Unknown Rx folic acid 1 mg tablet 1 mg PO DAILY@0800 supplement #90 07/20/23 Unknown Rx tabs losartan 25 mg tablet 25 mg PO DAILY 90 days #90 tabs 07/20/23 Unknown Rx oxybutynin chloride 10 mg 10 mg PO DAILY #90 tabs 07/20/23 Unknown Rx tablet,extended release 24 hr sertraline 50 mg tablet 50 mg PO DAILY depression #90 tabs 07/20/23 Unknown Rx coenzyme Q10 100 mg capsule (Co 200 mg PO DAILY 07/29/23 Unknown History Q-10) aspirin 81 mg chewable tablet 81 mg PO BREAKFAST 30 days #30 tabs 07/31/23 Unknown Rx acidophilus 25 million 2 tab PO BID #0 tabs 08/25/23 Unknown Rx cell-pectin, citrus 100 mg tablet acetaminophen 500 mg tablet 500 mg PO Q6H PRN PRN pain 12/30/23 Unknown History amlodipine 5 mg tablet 5 mg PO DAILY 12/30/23 Unknown History hydroxyzine pamoate 25 mg capsule 25 mg PO Q12H PRN anxiety 12/30/23 Unknown History lidocaine 4 % topical patch 1 patch topical QHS 12/30/23 Unknown History metoprolol tartrate 25 mg tablet 50 mg PO BID 12/30/23 Unknown History omeprazole 20 mg capsule,delayed 20 mg PO DAILY 12/30/23 Unknown History release Allergy/AdvReac Type Severity Reaction Status Date / Time aspartame Allergy Swelling Verified 12/30/23 01:11 latex Allergy Unknown Verified 12/30/23 01:11 Penicillins Allergy Laryngospas Verified 12/30/23 01:11 ms Family History Unknown Patient was adopted Surgical History History of hip surgery History of cholecystectomy History of section Social History Smoking Status: Never smoker alcohol intake: never substance use type: does not use what type of physical activity do you participate in: walking frequency: daily duration: 30-45 minutes/day ROS ROS ED Constitutional Constitutional ED: Denies chills or fever(s) Cardiovascular Cardiovascular: Denies chest pain Respiratory/Chest Respiratory/Chest: Reports cough and dyspnea; Denies sputum Gastrointestinal Gastrointestinal: Reports abdominal pain; Denies constipation, diarrhea or vomiting Genitourinary Genitourinary ED: Denies dysuria or hematuria Musculoskeletal Musculoskeletal: Denies arthralgias or myalgias Integumentary Denies rash Neurologic Neurologic: Denies headache(s) Hematologic/Lymphatic Hematologic/Lymphatic: Denies easy bleeding or easy bruising EXAM Physical Exam Const Vital Signs: 12/30/23 01:11 12/30/23 02:00 12/30/23 02:00 Temperature 97.6 F L Temperature Source Temporal Pulse Rate 73 76 Respiratory Rate 18 20 H Respiratory Pattern Normal Blood Pressure 152/84 H Blood Pressure Mean 106 Pulse Ox 95 93 Oxygen Delivery Method Room Air Nasal Cannula Oxygen Flow Rate (L/min) 2 12/30/23 03:10 Temperature Temperature Source Pulse Rate 69 Respiratory Rate 16 Respiratory Pattern Blood Pressure 163/65 H Blood Pressure Mean 97 Pulse Ox 99 Oxygen Delivery Method Nasal Cannula Oxygen Flow Rate (L/min) 2 Positive well nourished and well developed General Appearance ED: well developed and NAD HEENT Reports moist mucous membranes Eyes PERRL and EOMs intact bilaterally Neck supple and no JVD Resp normal respiratory effort Effort and Inspection: Negative for respiratory distress or retractions Auscultation: diminished lung sounds left lower; Negative for wheezes Cardio regular rate and regular rhythm GI non-tender and non-distended Auscultation: normoactive bowel sounds Palpation: soft and hernia ventral (Soft, reducible); Negative for guarding or rigid Back/Spine no CVA tenderness Extremity full ROM General Extremety ED: Negative for edema General Extremity: Negative for edema Neuro Sensorium / Orientation: alert, oriented to person, oriented to place and oriented to time Motor Exam: Negative for general weakness Psych mental status grossly normal and thought process normal Skin no wounds Rashes: no rashes MDM MDM MDM Narrative Medical decision making narrative: Patient evaluated for worsening shortness of breath and chest discomfort. She apparently does not wear oxygen regularly but was hypoxic per EMS report. Patient is placed on 2 L of oxygen in the ER. Workup looking for infectious etiology as well as because of generalized weakness and abdominal pain is obtained. Suspect some of the patient's abdominal pain is related to her chronic appearing ventral hernia. I do not think she requires imaging for this. Abdomen is soft and I do not suspect any type of strangulation/incarceration. CBC shows a mild but stable anemia but no leukocytosis. Her CMP does show an ZOEY with a creatinine of 1.97. It appears that patient's baseline is closer to 1.0 however it does appear that patient was admitted for renal insufficiency with a similar creatinine of 1.94 back in August of this year. She did normalize down to 1.14 at time of discharge. Otherwise urinalysis which is obtained through straight cath is consistent with urinary tract infection with positive nitrates, 10-25 white blood cells and 3+ bacteria. Urine culture sent and she started on Rocephin as well as azithromycin. Her two-view chest x-ray is concerning for atelectasis versus bibasilar pneumonia. Given that she is complaining of respiratory symptoms will cover for pneumonia. Patient is given IV fluids in the emergency room. Will be admitted for further treatment of urinary tract infection, possible bilateral pneumonia as well as IV fluids for renal insufficiency. Patient is agreeable with this plan of care. He made hemodynamically stable in the emergency room. History & Record Review Additional record(s) reviewed:: Prior inpatient record (Patient admitted for UTI, hypokalemia, ZOEY metabolic encephalopathy 08/19 through 08/24) and Prior labs Lab Data Attestation: I reviewed the patient's lab results. Labs: Laboratory Results - last 24 hr 12/30/23 12/30/23 02:17 04:20 WBC 5.6 RBC 3.04 L Hgb 9.4 L Hct 27.2 L MCV 89.5 MCH 30.9 MCHC 34.6 RDW Std Deviation 43.3 RDW Coeff of [place] 13.4 Plt Count 144 L MPV 8.9 Immature Gran % (Auto) 0.400 Neut % (Auto) 61.0 Lymph % (Auto) 27.1 Cass % (Auto) 6.1 Eos % (Auto) 5.0 Baso % (Auto) 0.4 Absolute Neuts (auto) 3.4 Absolute Lymphs (auto) 1.52 Nucleated RBC % 0 Sodium 144 Potassium 3.2 L Chloride 113 H Carbon Dioxide 27.0 Anion Gap 4 L BUN 23 H Creatinine 1.97 H Estim Creat Clear Calc 32.23 Est GFR (MDRD) Af Amer 33 L Est GFR (MDRD) Non-Af 28 L BUN/Creatinine Ratio 11.7 Glucose 178 H Calcium 7.6 L Magnesium 1.5 L Total Bilirubin 0.20 AST 20 ALT 12 L Alkaline Phosphatase 200 H Troponin I High Sens 12 Total Protein 5.0 L Albumin 1.7 L Globulin 3.3 Albumin/Globulin Ratio 0.5 L Lipase 23 Urine Color Yellow Urine Clarity Cloudy Urine pH 6.0 Ur Specific [place] 1.020 Urine Protein 500 H Urine Glucose (UA) 250 H Urine Ketones Negative Urine Occult Blood 25 H Urine Nitrite Positive H Urine Bilirubin Negative Urine Urobilinogen Normal Ur Leukocyte Esterase 25 H Urine RBC 0 SEEN Urine WBC 10-25 SEEN Ur Squamous Epith Cells 0 SEEN Amorphous Sediment 1+ Urine Bacteria 3+ Urine Mucus 0 SEEN Radiography Chest X-Ray - ED: 1 View, Read by ED Physician, Read by Radiologist, Right Infiltrate and Left Infiltrate Diagnostic Testing: Clinical Impression(s) from Imaging Studies Chest X-Ray 12/30/23 01:48 IMPRESSION: Findings concerning for bilateral lower lobe pneumonia with small effusion and superimposed atelectasis. Electronically Signed: Trevor Hoffmann MD at 3:13 EDT , Rhythm Strip Rhythm Strip: Sinus Rhythm Rate: 69 Ectopy: None EKG Initial EKG: Attestation: I personally reviewed and interpreted this EKG as follows: Interpretation: Sinus Rhythm Comments: Normal sinus rhythm at a rate of 69 bpm Normal axis Normal intervals Low voltage QRS Nonspecific T wave changes Prior EKG tracings: available for review Prior: Changed (Lower voltage now) Management Discussion w/another healthcare provider: Hospitalist Discharge Plan Triage Chief Complaint: Abd Pain ED Provider: Dianna Leonardo Dx/Rx/DC Orders Clinical Impression: UTI (urinary tract infection), Pneumonia, ZOEY (acute kidney injury), Hypokalemia Primary Care Provider: Andrei Huff Disposition Disposition: Acute Care Hospital [facility]
[2023-12-30] MEDS: 0.9% Normal Saline (500mL Bag) 500 ML 999 ML IV (03:19)
[2023-12-30 04:29] LABS: Mucous, Urine 0 SEEN /hpf (<or=2+); Red Blood Cells-Urine 0 SEEN /hpf (0-5); Squamous Epithelial Cells - UA 0 SEEN /hpf (5-10)
[2023-12-30 04:34] LABS: Color, Urine Yellow (Yellow); Glucose, Dipstick 250 mg/dl (Normal); Ketone-Dipstick Negative (Negative); Leukocyte Esterase-Dipstick 25 /ul (Negative); Nitrite-Dipstick Positive (Negative); Occult Blood-Urine 25 /ul (Negative); Protein-Dipstick 500 mg/dl (Negative); Urine Bilirubin Dipstick Negative (Negative); Urine Clarity Cloudy (Clear); Urine Urobilinogen Normal (Normal)
[2023-12-30 04:46] LABS: Amorphous Sediment 1+; Bacteria 3+ /hpf (None Seen); White Blood Cells 10-25 SEEN /hpf (0-5)
--- NOTE | 2023-12-30 04:51 | HP.PCM.HOS_ITS ---
HPI - General General Date of Admission: 12/30/23 Date of Service: 12/30/23 Chief Complaint: Dyspnea, cough, abdominal pain. HPI Narrative The patient is a 58 yo F w/ PMHx: Anxiety and Depression/PTSD/Hx SI, Obesity, CKD stage III unclear subtype, Seizure disorder, Diabetes mellitus type II with chronic neuropathy, Chronic anemia, Orthostatic hypotension who presents to the [facility] ED on 12/30/2023 with history of dyspnea as well as epigastric and general chest discomfort ongoing for nearly 4 weeks with sensation that she cannot catch her breath with no recent fevers or chills, no increased lower extremity swelling or marked orthopnea but given this has been ongoing prompted ED evaluation. Patient does report cough although nonproductive sputum. Patient denies any marked dysuria but states that her urine has been strong and foul- smelling but unclear on timeline. Workup in the ED included T97.6, heart rate 73, BP 152/84, respiratory rate 18, 95% on room air however patient eventually was placed on 2 L nasal cannula, most recent vital signs heart rate 69, BP 163/65, respiratory rate 16, 99% on 2 L nasal cannula but from discussion with skilled facility staff patient may be on chronic oxygen supplementation baseline, CBC with WBC 5.6, hemoglobin 9.4, MCV 89.5, platelet 144 without marked shift, CMP with potassium 3.2, chloride 113, BUN/creatinine 23/1.97, GFR 28, glucose 178, alk phos 200 otherwise hepatic profile not markedly appearing, lipase 23, chest x-ray with questionable bilateral lower lobe infiltrates concerning for bilateral pneumonia with small effusion and superimposed atelectasis, rapid SARS COVID/influenza/RSV PCR negative, urinalysis with specific gravity 1.020, protein 500, glucose 250, negative ketone, positive nitrate, leukocyte Estrace 25, urine to BCs 10-25, 3+ urine bacteria, urine culture pending per ED. In the ED patient administered 500 cc IV bolus as well as DuoNeb therapy, Azithromycin 5 mg IV x 1, Rocephin 1 g IV x 1. [facility] Medical History Syncope and collapse Frequent falls Congestive heart failure Microalbuminuria CKD (chronic kidney disease), stage III Dermatitis Neuropathy Left facial pain TMJ arthritis Lightheadedness Anemia Secondary pulmonary arterial hypertension Orthostatic hypotension Syncope Essential hypertension Seizures Obesity (BMI 30-39.9) Sleep concern Postconcussion syndrome [place] toxicity Abnormal thyroid function test Hypersomnolence Type 2 diabetes mellitus without complications Xerosis cutis Venous insufficiency PVD (peripheral vascular disease) Ulcer of left lower extremity with fat layer exposed Chronic ulcer of left foot with fat layer exposed Diabetic foot ulcer Eczema Hyperglycemia due to type 2 diabetes mellitus OAB (overactive bladder) Bilateral tinnitus Hyperlipidemia Type 2 diabetes mellitus Depression with anxiety Vision problems Vitamin defciency GERD (gastroesophageal reflux disease) Polycystic ovaries Kidney stones Frequent headaches H/O emotional problems Back problem Seasonal allergies Aspiration pneumonia ZOEY (acute kidney injury) Hyperosmolar non-ketotic state in patient with type 2 diabetes mellitus Suicide attempt Toxic encephalopathy Anxiety Hypomagnesemia Hypokalemia Home Medications ?Medication ?Instructions ?Recorded ?Last Taken ?Type albuterol sulfate 2.5 mg/3 mL 2.5 mg (3 mL) inhalation Q4H PRN 05/03/19 Unknown Rx (0.083 %) solution for nebulization shortness of breath or wheezing #180 mL fludrocortisone 0.1 mg tablet See Rx Instructions .Route 11/09/22 Unknown Rx .COMPLEX #30 tabs benztropine 1 mg tablet 1 mg PO TID 06/18/23 Unknown History ondansetron HCl 4 mg tablet 4 mg PO Q6H PRN nausea and vomiting 06/18/23 Unknown History prazosin 1 mg capsule 3 mg PO QHS 06/18/23 Unknown History trazodone 50 mg tablet 50 mg PO QHS 06/18/23 Unknown History walker #1 ea 06/27/23 Unknown Rx compress.stocking,knee,reg,lrg #2 ea 07/01/23 Unknown Rx blood sugar diagnostic (FreeStyle #100 ea 07/09/23 Unknown Rx Lite Strips) blood-glucose meter (FreeStyle #1 ea 07/09/23 Unknown Rx Lite Meter kit) lancets 28 gauge (FreeStyle #200 ea 07/09/23 Unknown Rx Lancets) pen needle, diabetic 31 gauge x #100 ea 07/09/23 Unknown Rx 3/16 (Comfort EZ Pen [place]) albuterol sulfate 90 mcg/actuation 1 - 2 puff inhalation Q6H PRN 07/20/23 Unknown Rx aerosol inhaler (ProAir HFA) shortness of breath or wheezing #8.5 grams atorvastatin 40 mg tablet 40 mg PO QHS cholesterol #90 tabs 07/20/23 Unknown Rx folic acid 1 mg tablet 1 mg PO DAILY@0800 supplement #90 07/20/23 Unknown Rx tabs losartan 25 mg tablet 25 mg PO DAILY 90 days #90 tabs 07/20/23 Unknown Rx oxybutynin chloride 10 mg 10 mg PO DAILY #90 tabs 07/20/23 Unknown Rx tablet,extended release 24 hr sertraline 50 mg tablet 50 mg PO DAILY depression #90 tabs 07/20/23 Unknown Rx coenzyme Q10 100 mg capsule (Co 200 mg PO DAILY 07/29/23 Unknown History Q-10) aspirin 81 mg chewable tablet 81 mg PO BREAKFAST 30 days #30 tabs 07/31/23 Unknown Rx acidophilus 25 million 2 tab PO BID #0 tabs 08/25/23 Unknown Rx cell-pectin, citrus 100 mg tablet acetaminophen 500 mg tablet 500 mg PO Q6H PRN PRN pain 12/30/23 Unknown History amlodipine 5 mg tablet 5 mg PO DAILY 12/30/23 Unknown History hydroxyzine pamoate 25 mg capsule 25 mg PO Q12H PRN anxiety 12/30/23 Unknown History lidocaine 4 % topical patch 1 patch topical QHS 12/30/23 Unknown History metoprolol tartrate 25 mg tablet 50 mg PO BID 12/30/23 Unknown History omeprazole 20 mg capsule,delayed 20 mg PO DAILY 12/30/23 Unknown History release Allergy/AdvReac Type Severity Reaction Status Date / Time aspartame Allergy Swelling Verified 12/30/23 01:11 latex Allergy Unknown Verified 12/30/23 01:11 Penicillins Allergy Laryngospas Verified 12/30/23 01:11 ms Family History Unknown Patient was adopted Surgical History History of hip surgery History of cholecystectomy History of section Social History (Updated 12/30/23 @ 05:[address] Kristina Israel MD) housing: shelter Smoking Status: Never smoker alcohol intake: never substance use type: does not use what type of physical activity do you participate in: walking frequency: daily duration: 30-45 minutes/day ROS ROS Narrative Admission Review of Systems: CONSTITUTIONAL: No weight loss, fever, chills, + weakness or fatigue. HEENT: Eyes: No visual loss, blurred vision, double vision or yellow sclerae. Ears, Nose, Throat: No hearing loss, sneezing, congestion, runny nose or sore throat. SKIN: No rash or itching, lesions, wounds. CARDIOVASCULAR: No chest pain, chest pressure or chest discomfort, palpitations, edema, orthopnea, syncopal events. RESPIRATORY: + Dyspnea, nonproductive cough. No marked wheezing hemoptysis. GASTROINTESTINAL: + Abdominal generalized upper discomfort, bloating. No anorexia, nausea, vomiting, diarrhea, melena, BRBPR. GENITOURINARY: + Foul-smelling strong urine. No dysuria, frequency, urgency or retention. NEUROLOGICAL: No headache, dizziness, syncope, paralysis, ataxia, numbness or tingling in the extremities, focal weakness, change in bowel or bladder control, seizure. MUSCULOSKELETAL: + muscle, back pain, joint pain or stiffness. HEMATOLOGIC: + Chronic anemia, easy bleeding/bruising. LYMPHATICS: No enlarged nodes. No history of splenectomy. PSYCHIATRIC: + History of anxiety and depression/PTSD/history of SI. ENDOCRINOLOGIC: No reports of sweating, cold or heat intolerance. No polyuria or polydipsia. ALLERGIES: No history of asthma, hives, eczema or rhinitis. Vital Signs Vital Signs Vital Signs: 12/30/23 01:11 12/30/23 02:00 12/30/23 02:00 Temperature 97.6 F L Temperature Source Temporal Pulse Rate 73 76 Respiratory Rate 18 20 H Respiratory Pattern Normal Blood Pressure 152/84 H Blood Pressure Mean 106 Pulse Ox 95 93 Oxygen Delivery Method Room Air Nasal Cannula Oxygen Flow Rate (L/min) 2 12/30/23 03:10 Temperature Temperature Source Pulse Rate 69 Respiratory Rate 16 Respiratory Pattern Blood Pressure 163/65 H Blood Pressure Mean 97 Pulse Ox 99 Oxygen Delivery Method Nasal Cannula Oxygen Flow Rate (L/min) 2 Weight Weight: 189 lb 9.561 oz Body Mass Index (BMI) 32.5 Physical Exam Narrative Physical Examination: General: Awake, alert, oriented x 3 and cooperative, seated upright in the ED bed, fatigued but notes that her abdominal discomfort is improving. Skin: Normal color, normal turgor, no icterus, no cyanosis except occasional staged ecchymoses. HEENT: AT/NC, EOMI, PERRLA, moderately dry MM, no carotid bruits or JVD noted. Lungs: Diminished bilaterally, left greater than right, appropriate effort, no evidence of any distress, despite chest x-ray findings no appreciated rales, ronchi or wheezing. Heart: Regular rate and rhythm; no gallop, rub audible. Abdomen: Soft, obese, mild generalized discomfort with palpation but no rebound or guarding, no marked distention, mildly hyperactive BS, no appreciated HSM. Extremities: No cyanosis, no clubbing, bilateral lower extremity pedal to distal michaud 1+ pitting edema which patient notes is chronic. Neurological: Patient awake, alert, oriented as noted, cognitive function intact; pupils equally reactive to light and accommodation, cranial nerves grossly normal, moving all 4 extremities, no focal deficits, strength moderately to severely global decreased secondary to acute presentation complicated by underlying comorbidities. Psychiatric: Affect appears fatigued otherwise normal, no acute evidence of depressive or anxiety feelings but does have underlying history. Results Lab / Micro Data 12/30/23 02:17 12/30/23 02:17 Labs: Laboratory Results - last 24 hr 12/30/23 02:17: WBC 5.6, RBC 3.04 L, Hgb 9.4 L, Hct 27.2 L, MCV 89.5, MCH 30.9, MCHC 34.6, RDW Std Deviation 43.3, RDW Coeff of Emery 13.4, Plt Count 144 L, MPV 8.9, Immature Gran % (Auto) 0.400, Neut % (Auto) 61.0, Lymph % (Auto) 27.1, Blair % (Auto) 6.1, Eos % (Auto) 5.0, Baso % (Auto) 0.4, Absolute Neuts (auto) 3.4, Absolute Lymphs (auto) 1.52, Nucleated RBC % 0, Sodium 144, Potassium 3.2 L, C hloride 113 H, Carbon Dioxide 27.0, Anion Gap 4 L, BUN 23 H, Creatinine 1.97 H, Estim Creat Clear Calc 32.23, Est GFR (MDRD) Af Amer 33 L, Est GFR (MDRD) Non-Af 28 L, BUN/Creatinine Ratio 11.7, Glucose 178 H, Calcium 7.6 L, Total Bilirubin 0.20, AST 20, ALT 12 L, Alkaline Phosphatase 200 H, Troponin I High Sens 12, T otal Protein 5.0 L, Albumin 1.7 L, Globulin 3.3, Albumin/Globulin Ratio 0.5 L, Lipase 23 12/30/23 04:20: Urine Color Yellow, Urine Clarity Cloudy, Urine pH 6.0, Ur Specific [place] 1.020, Urine Protein 500 H, Urine Glucose (UA) 250 H, Urine Ketones Negative, Urine Occult Blood 25 H, Urine Nitrite Positive H, Urine Bilirubin Negative, Urine Urobilinogen Normal, Ur Leukocyte Esterase 25 H, Urine RBC 0 SEEN, Urine WBC 10-25 SEEN, Ur Squamous Epith Cells 0 SEEN, Amorphous Sediment 1+, Urine Bacteria 3+, Urine Mucus 0 SEEN Micro: Microbiology 12/30/23 03:20 Mucosa - Nose SARS-CoV-2, Influenza & RSV (PCR) - Final Imaging Radiology Impression Chest X-Ray 12/30/23 01:48 IMPRESSION: Findings concerning for bilateral lower lobe pneumonia with small effusion and superimposed atelectasis. Electronically Signed: Trevor Hoffmann MD at 3:13 EDT , Assessment & Plan Assessment/Plan (1) Pneumonia: (2) UTI (urinary tract infection): PLAN: Plan The patient is a 58 yo F w/ PMHx: Anxiety and Depression/PTSD/Hx SI, Obesity, CKD stage III unclear subtype, Seizure disorder, Diabetes mellitus type II with chronic neuropathy, Chronic anemia, Orthostatic hypotension who presents to the [facility] ED on 12/30/2023 with history of dyspnea as well as epigastric and general chest discomfort ongoing for nearly 4 weeks with sensation that she cannot catch her breath with no recent fevers or chills, no increased lower extremity swelling or marked orthopnea but given this has been ongoing prompted ED evaluation. #1. Possible BL Pneumonia with chronic hypoxic respiratory failure in addition to Acute Complicated UTI: Will admit to [facility], maintain on chronic oxygen supplementation, continue ATC budesonide, PRN albuterol, maintained on IV Rocephin and Azithromycin, HOB, IS parameters w/ pending sputum cultures, full respiratory panel and urine antigens. BNP requested. Bld cx x 2 obtained in the ED. PT/OT/case management consulted for discharge planning. #2. Acute kidney injury on CKD stage III unclear subtype: Unclear exact etiology, potentially dehydration given acute infectious presentation as noted. Admission BUN/Cr 23/1.97, GFR 28, prior baseline creatinine noted to be 1.0-1.1 primarily however patient has had acute presentations with similar elevations with acute kidney injury. Will hydrate, hold nephrotoxic medications and repeat chemistry in AM. If no improvement would plan FeNa and renal ultrasound assessment. #3. Hypokalemia: Admission K+ 3.2, magnesium level requested, supplementation given, repeat level in AM. #4. Adult failure to thrive, chronic immobility: Patient with chronic immobility, encourage positional changes as able, complicated by acute presentation, maintain on fall and aspiration precautions, PT/OT/case management consulted for discharge planning. #5. HF mildly reduced EF: 07/30/2023 echocardiogram with EF 40 to 45%, stage II diastolic dysfunction, mild MVI, mild to moderate TBI, moderate pulmonary hypertension, aortic sclerosis with no stenosis, small pericardial effusion with no evidence of tamponade. Will continue aspirin, statin, metoprolol, given acute kidney injury holding losartan temporarily, not on diuretic therapy. #6. Anxiety depression/PTSD/history SI: We will continue patient home trazodone, sertraline, Cogentin regimen with hold for sedated regimen as needed. #7. Chronic normocytic anemia: Admission hemoglobin 9.4, MCV 89.5, baseline hemoglobin 9 more recently 9-10, most recent 08/23/23 hemoglobin 9.7, continue to trend. #8. History of orthostatic hypotension with recurrent syncopal events associated: We will continue patient home fludrocortisone regimen. #9. Diabetes mellitus type II with chronic neuropathy: Hold oral home regimen, ADA diet, accu checks w/ ISS, continue patient home gabapentin regimen. #10. Seizure disorder: From prior records had been on Keppra, currently need to clarify list is not currently listed. #11. Hypertension: Continue home regimen including metoprolol, holding nephrotoxic regimen given presentation with ZOEY temporarily as noted, PRN hydralazine. #12. Hyperlipidemia: We will continue patient on statin therapy. #13. DVT prophylaxis: Heparin. #14. CODE status: Patient denies having healthcare power of sports attorney or living will in place but notes her would be her medical decision-maker if necessary. Discussed CODE status at length including difference between FULL code, DNR-CCA and DNR-CC status. Following discussions about the differences in these status, requested Full Code status. Advanced Care Planning Face to Face Time: 16 minutes. Charges/Coding Visit Charges Inpatient E&M: 24523 Init Hosp L3 Procedures Hospitalists Procedures: 76412 Advncd Care Plan 30 Min
[2023-12-30] MEDS: Ceftriaxone 1 GM/50 ML BAG IV ×2 (05:11→21:02)
[2023-12-30 05:19] LABS: Magnesium 1.5 mg/dL (1.6-2.6)
[2023-12-30 05:31] LABS: BNP,B-Type NATRIURETIC PEPTIDE 884.8 pg/mL (0-100)
[2023-12-30] MEDS: Azithromycin 500 MG in Dextrose 5%-Water (250mL Bag) 250 ML 250 MG IV (06:34)
[2023-12-30 06:40] LABS: Absolute Lymphocyte Count 1.71 X10^3/uL (0.83-4.51); Basophil# 0.02 X10^3/uL; Basophil% 0.4 % (0-1); Eosinophil# 0.22 X10^3/uL; Eosinophils% 4.1 % (0-5); Hematocrit 26.9 % (37-47); Hemoglobin 9.2 g/dL (12.0-15.0); Lymphocyte # 1.71 X10^3/ul (0.83-4.51); Lymphocyte % 31.9 % (19-41); Mean Corp Hgb Conc 34.2 g/dL (32-36); Mean Corpuscular Hgb 30.9 pg (27.0-32.0); Mean Corpuscular Volume 90.3 fL (81-99); Mean Platelet Vol. 8.8 fl (6.2-12.0); Monocyte# 0.34 X10^3/uL; Monocyte% 6.3 % (0-10); NRBC Flagged by Analyzer 0 % (0-5); Neutrophil # 3.04 X10^3/uL (2.7-7.7); Neutrophil % 56.7 % (47-70); Platelet Count 131 K/mm3 (150-450); RBC Distribution Width CV 13.5 % (11.6-14.6); RBC Distribution Width SD 44.3 fl (35.1-43.9); Red Blood Count 2.98 M/mm3 (4.2-5.4); White Blood Count 5.4 K/mm3 (4.4-11.0)
[2023-12-30] MEDS: 0.9% Normal Saline (1000mL) 1,000 ML 100 ML IV ×2 (06:40→18:39)
[2023-12-30] MEDS: Potassium Chloride Oral Tablet 20 MEQ 40 MEQ PO (06:42)
[2023-12-30] MEDS: Benztropine Mesylate 0.5 MG TABLET 1 MG PO ×3 (06:44→21:00)
[2023-12-30 07:04] LABS: ALB/GLOB Ratio 0.5 RATIO (0.9-2.4); AST(SGOT) 18 U/L (15-37); Alanine Aminotransfer ALT/SGPT 9 U/L (13-56); Albumin, Serum 1.7 g/dL (3.2-5.0); Alkaline Phosphatase 181 U/L (45-117); Anion Gap 5 (5-15); BUN 23 mg/dL (7-18); BUN/Creat Ratio 12.5 RATIO (10-20); Calcium,Total 7.8 mg/dL (8.5-10.1); Chloride 114 mmol/L (98-107); Creatinine, Serum 1.84 mg/dL (0.55-1.02); EST Glomerular Filtration Rate 30 mL/min (>60); Est Glom Filt Rate - Afr Amer 36 mL/min (>60); Estimated Creatinine Clearance 34.15 ml/min; Globulin 3.1 g/dL (2.2-4.2); Glucose 152 mg/dL (74-106); Protein, Total 4.8 g/dL (6.4-8.2); Sodium Level 144 mmol/L (136-145)
[2023-12-30 07:27] LABS: Bedside Glucose 140 mg/dL (74-106)
[2023-12-30] MEDS: Magnesium Sulfate 2 GM in Dextrose 5%-Water (100mL Bag) 100 ML IV (08:48)
[2023-12-30] MEDS: Lactobacillis Acidophilus 2 CAP PO ×2 (08:54→21:00)
[2023-12-30] MEDS: Pantoprazole Sodium 20 MG Tablet PO (08:55)
[2023-12-30] MEDS: Heparin Injection (Vial) 5,000 UNIT/ML VIAL 5000 UNIT SC ×2 (08:55→21:01)
[2023-12-30] MEDS: Fludrocortisone Acetate 0.1 MG Tablet PO ×2 (08:55→17:12)
[2023-12-30] MEDS: Sertraline 50 MG Tablet PO (08:55)
[2023-12-30] MEDS: Folic Acid 1 MG Tablet PO (08:55)
[2023-12-30] MEDS: Aspirin 81 MG TAB.CHEW PO (08:55)
[2023-12-30] MEDS: Tolterodine Tartrate 2 MG CAP.SA PO (08:55)
[2023-12-30] MEDS: Metoprolol Tartrate 50 MG Tablet PO ×2 (09:07→20:58)
[2023-12-30] MEDS: amLODIPine 5 MG Tablet PO (09:07)
--- NOTE | 2023-12-30 09:47 | CASEMGMT ---
Social Work- SW met with pt to discuss preference at d/c. Pt reports that she has been at [facility] 5 months (SW verified in chart since 08/26/23) and plans to return. Pt reports that she was an [employer] for 14 years and is the most difficult kind of pt. Pt reports that she cannot go home and her opinion doesn't matter. SW offered a list of SNF providers including quality and resource use data and consistent with the patient?s preferred geographic region, medical needs, and insurance network, however, pt declined. Pt was observed to have involuntary facial movements/psychomotor movement. SW offered support for any emotional needs, actively listening and engaging in empathetic support. Pt denies any needs for resources or supports at this time. SW will remain available to follow. KEL Fowler
--- NOTE | 2023-12-30 10:08 | CASEMGMT ---
Addendum entered by Colette Carnes 12/30/23 11:57: Patient can return w/o a precert unless gone for more than 3 days. Colette Carnes DC Planning Asst. Original Note: Discharge Planning Updates sent to [facility] via [facility]. Asked if precert is needed. Awaiting response. Colette Carnes DC Planning Asst.
--- NOTE | 2023-12-30 10:21 | NURSING ---
Pt worked with therapy and now sitting in chair. Call light and Bedside Table in reach.
[2023-12-30 10:44] LABS: Procalcitonin 0.15 ng/mL (0.00-0.09)
[2023-12-30 12:14] LABS: Bedside Glucose 126 mg/dL (74-106)
--- NOTE | 2023-12-30 12:33 | PCM.HOSP.N ---
Hospitalist Note Patient was admitted earlier this morning with concern for pneumonia and UTI. Saw patient at bedside midmorning. Patient was sitting up fairly comfortably in bed, conversing normally, in no acute distress. She stated that she felt similar now that she did earlier today. She states that her shortness of breath is more intermittent in nature and she has not had any episodes of shortness of breath since being admitted earlier today. She was off supplemental oxygen when I saw her and breathing comfortably. She denied any fevers or chills. She was tolerating the antibiotics without issue. No other acute concerns at this time. Full progress note to follow tomorrow.
[2023-12-30] MEDS: hydrALAZINE 20 MG/ML Vial 10 MG IV (14:32)
[2023-12-30] MEDS: 0.9% Saline Lock 10 ML Syringe IV ×2 (14:32→21:04)
[2023-12-30 16:28] LABS: Bedside Glucose 122 mg/dL (74-106)
[2023-12-30] MEDS: Budesonide Respules 0.5 MG/2 ML AMPUL.NEB. INHALATION (20:45)
[2023-12-30] MEDS: Atorvastatin Calcium 40 MG Tablet PO (20:58)
[2023-12-30] MEDS: Doxazosin 1 MG Tablet 2.5 MG PO (20:59)
[2023-12-30] MEDS: Divalproex Sodium 250 MG Tablet PO (21:00)
[2023-12-30] MEDS: traZODone 50 MG Tablet PO (21:00)
[2023-12-30] MEDS: Lidocaine 5% Patch 1 PATCH TOPICAL (21:01)
[2023-12-30] MEDS: hydrOXYzine PAM 25 MG Capsule PO (21:24)
[2023-12-30 23:16] LABS: Bedside Glucose 142 mg/dL (74-106)
[2023-12-31] VITALS (11 sets, daily range): BP systolic 153–173; BP diastolic 72–92; PULSE 71–86; RESP 16–20; TEMP 36.5–37.2; O2SAT 93–98; BMI 32.7
[2023-12-31] MEDS: 0.9% Saline Lock 10 ML Syringe IV ×4 (00:26→21:39)
[2023-12-31] MEDS: Benztropine Mesylate 0.5 MG TABLET 1 MG PO ×3 (05:42→21:41)
[2023-12-31] MEDS: hydrALAZINE 20 MG/ML Vial 10 MG IV ×2 (05:43→12:28)
[2023-12-31] MEDS: Menthol/Lanolin/Calamine/Znox 113 GM Tube 1 APPLIC TOPICAL ×3 (05:43→21:40)
[2023-12-31 06:27] LABS: Bedside Glucose 111 mg/dL (74-106)
--- NOTE | 2023-12-31 06:46 | NURSING ---
Patient refused ordered straight cath.
[2023-12-31] MEDS: Budesonide Respules 0.5 MG/2 ML AMPUL.NEB. INHALATION (07:34)
[2023-12-31] MEDS: Heparin Injection (Vial) 5,000 UNIT/ML VIAL 5000 UNIT SC ×2 (08:31→21:42)
[2023-12-31] MEDS: Aspirin 81 MG TAB.CHEW PO (08:32)
[2023-12-31] MEDS: Tolterodine Tartrate 2 MG CAP.SA PO (08:33)
[2023-12-31] MEDS: Lactobacillis Acidophilus 2 CAP PO ×2 (08:33→21:39)
[2023-12-31] MEDS: Metoprolol Tartrate 50 MG Tablet PO ×2 (08:34→21:39)
[2023-12-31] MEDS: Folic Acid 1 MG Tablet PO (08:34)
[2023-12-31] MEDS: Sertraline 50 MG Tablet PO (08:34)
[2023-12-31] MEDS: Pantoprazole Sodium 20 MG Tablet PO (08:35)
[2023-12-31] MEDS: amLODIPine 5 MG Tablet PO (08:35)
[2023-12-31] MEDS: Fludrocortisone Acetate 0.1 MG Tablet PO ×2 (08:36→16:10)
[2023-12-31] MEDS: Azithromycin 500 MG in Dextrose 5%-Water (250mL Bag) 250 ML 250 MG IV (08:38)
[2023-12-31 09:26] LABS: Hematocrit 26.4 % (37-47); Hemoglobin 8.9 g/dL (12.0-15.0); Mean Corp Hgb Conc 33.7 g/dL (32-36); Mean Corpuscular Hgb 31.1 pg (27.0-32.0); Mean Corpuscular Volume 92.3 fL (81-99); Mean Platelet Vol. 9.3 fl (6.2-12.0); Platelet Count 144 K/mm3 (150-450); RBC Distribution Width CV 13.7 % (11.6-14.6); RBC Distribution Width SD 45.8 fl (35.1-43.9); Red Blood Count 2.86 M/mm3 (4.2-5.4); White Blood Count 4.5 K/mm3 (4.4-11.0)
[2023-12-31 09:50] LABS: Anion Gap 5 (5-15); BUN 23 mg/dL (7-18); BUN/Creat Ratio 12.8 RATIO (10-20); Calcium,Total 7.9 mg/dL (8.5-10.1); Chloride 115 mmol/L (98-107); EST Glomerular Filtration Rate 31 mL/min (>60); Est Glom Filt Rate - Afr Amer 37 mL/min (>60); Estimated Creatinine Clearance 35.35 ml/min; Glucose 105 mg/dL (74-106); Magnesium 1.9 mg/dL (1.6-2.6); Sodium Level 144 mmol/L (136-145)
[2023-12-31 12:17] LABS: Bedside Glucose 115 mg/dL (74-106)
--- NOTE | 2023-12-31 12:29 | PN.HOSP_ITS ---
Reason for Visit Reason for Visit: Diagnoses Pneumonia, unspecified organism (12/30/23) Urinary tract infection, site not specified (12/30/23) Subjective Subjective Saw patient at bedside this morning. Patient generally appeared similar today to yesterday. She was lying comfortably in bed, conversing normally, no acute distress. She was breathing comfortably on room air at rest. She denied any shortness of breath currently but stated she will intermittently have episodes of shortness of breath when supplemental oxygen seems to be helpful for her. She otherwise denies any cough or sputum production. Denies any dysuria. No other new concerns today. Objective Data Objective Data Vital Signs: Vital Signs Temp Pulse Resp BP Pulse Ox O2 Del Method O2 Flow Rate 98.4 F 73 18 173/79 H 95 Room Air 2 12/31/23 08:25 12/31/23 08:34 12/31/23 08:25 12/31/23 08:34 12/31/23 08:25 12/31/23 08:40 12/30/23 03:10 Oxygen Flow Rate (L/min) 2 Oxygen Delivery Method Room Air Weight: 86.4 kg Body Mass Index (BMI) 32.7 Intake & Output: Intake and Output for Last 24 Hours 12/29/23 12/30/23 12/31/23 23:59 23:59 23:59 Intake Total 2559 / 2609 1090 / 1090 Output Total 200 / 200 Balance 2359 / 2409 1090 / 1090 Lab / Micro Data 12/31/23 08:40 12/31/23 08:40 Labs: Laboratory Results - last 24 hr 12/30/23 16:08: POC Glucose 122 H 12/30/23 20:57: POC Glucose 142 H 12/31/23 05:51: POC Glucose 111 H 12/31/23 08:40: WBC 4.5, RBC 2.86 L, Hgb 8.9 L, Hct 26.4 L, MCV 92.3, MCH 31.1, MCHC 33.7, RDW Std Deviation 45.8 H, RDW Coeff of Emery 13.7, Plt Count 144 L, MPV 9.3, Sodium 144, Potassium 3.0 L, Chloride 115 H, Carbon Dioxide 24.0, Anion Gap 5, BUN 23 H, Creatinine 1.80 H, Estim Creat Clear Calc 35.35, Est GFR (MDRD) Af Amer 37 L, Est GFR (MDRD) Non-Af 31 L, BUN/Creatinine Ratio 12.8, Glucose 105, C alcium 7.9 L, Magnesium 1.9 12/31/23 11:52: POC Glucose 115 H Micro: Microbiology 12/30/23 04:20 Urine Catheter - Catheter Urine Culture - Preliminary Gram negative edward Gram positive organism 12/30/23 07:38 Mucosa - Nasopharyngeal Respiratory Panel (PCR) - Final 12/30/23 04:20 Urine Catheter - Catheter Legionella Antigen - Final 12/30/23 04:20 Urine Catheter - Catheter Streptococcus pneumoniae Antigen (M - Final 12/30/23 03:20 Mucosa - Nose SARS-CoV-2, Influenza & RSV (PCR) - Final Rhythm Strip Rhythm Strip: Sinus Rhythm Rate: 69 Ectopy: None Physical Exam Const alert, oriented x3 and no apparent distress Constitutional Narrative: Middle-age female, obese, alert and answering questions appropriately, sitting up comfortably in bed, in no acute distress. General Appearance: cooperative and comfortable HEENT normocephalic, head/scalp atraumatic, hearing grossly normal bilaterally, nasal mucous membranes and turbinates normal and moist oral mucous membranes Eyes PERRL, EOMs intact bilaterally and conjunctivae normal Neck full ROM Chest inspection of chest normal Resp normal respiratory effort and no use of accessory muscles Resp Narrative: Mildly decreased breath sounds bilaterally, no wheezing or crackles noted. Breathing comfortably on room air at rest. Cardio regular rate, regular rhythm, no murmurs and peripheral pulses 2+ throughout GI normal to inspection, nondistended, normoactive bowel sounds, soft to palpation, non-tender and non-distended Back/Spine normal ROM Extremity normal to inspection and full ROM Extremity Narrative: Trace lower extremity bilaterally, stable. Skin no rashes or lesions noted Neuro moves all extremities and no focal motor deficits Speech: speech normal Psych mental status grossly normal Assessment & Plan Assessment/Plan (1) Cough: QUALIFIERS: Cough type: acute Qualified Code(s): R05.1 - Acute cough (2) UTI (urinary tract infection): (3) ZOEY (acute kidney injury): (4) Hypokalemia: (5) Debility: PLAN: Plan Patient is a 58-year-old female who presented [facility] ED on 12/30/2023 from her group home with reported worsening shortness of breath and inability to catch her breath. 1. Concern for pneumonia with mild hypoxia, improving ? Chest x-ray on admit with findings concerning for bilateral lower lobe pneumonia with small effusion and superimposed atelectasis. Patient reported worsening shortness of breath on admission. Did have mild hypoxia requiring supplemental nasal cannula on admit. Respiratory PCR panel negative, COVID/flu/RSV negative, urine antigens negative. Weaned off supplemental oxygen on hospital day 2. Patient with no cough or sputum production, afebrile and hemodynamically stable since admission. Have low concern for pneumonia, continue treatment with antibiotics for acute cystitis as noted below but no further treatment needed for pneumonia. 2. Acute cystitis ? UA on admit with positive nitrites, 25 leukocyte esterase, 3+ bacteria. Urine culture preliminary positive for > 100K gram-negative rods. On chart review, has grown pansensitive E. coli on multiple previous urine cultures over the past year or so. Treated with IV azithromycin and ceftriaxone since admission, azithromycin discontinued on 12/30 but will continue ceftriaxone. Plan for 5-day course of antibiotics total. 3. ZOEY on CKD stage III ? Creatinine 1.97 on admit. Baseline unclear; has had creatinine values in the 1.2 range within the last several months but has also had several admissions with creatinine in the 1.7-2.0 range. Creatinine has remained stable around 1.8 since admission and patient with good urine output. Will continue to monitor BMP and urine output daily. 4. Mild hypokalemia ? Potassium 3.2 on admit. Repleting as needed. 5. HFrEF not in acute exacerbation, hypertension, hyperlipidemia ? Echo from 07/2023 showed EF 40%, stage II diastolic dysfunction, mild concentric LV hypertrophy, moderate global LV systolic dysfunction, moderate pulmonary hypertension. Patient euvolemic on admit, BNP 884 (improved from previous values), no concern for acute exacerbation. Continue home amlodipine, Lopressor and prazosin. Home losartan was held on admit given ZOEY as noted above; BP has been elevated and unclear if ZOEY versus CKD, okay to restart home losartan on 12/31. Continue home statin. 6. Adult failure to thrive with chronic immobility ? PT/OT/case management following. Resides at [facility], will be okay to return there on discharge. 7. Anxiety/depression/PTSD/bipolar disorder/history of SI ? Stable. Continue home benztropine, divalproex, hydroxyzine as needed, sertraline and trazodone at night. Chronic medical conditions: ? Obesity: BMI 32 on admit. Complicates hospital course, care and prognosis. ? History of orthostatic hypotension with recurrent syncope: No orthostatic hypotension since admit. Continue home fludrocortisone. ? Type 2 diabetes mellitis: Treating with sliding scale insulin with meals while inpatient with good sugar control. DVT prophylaxis: Heparin subcu CODE STATUS: Full code, verified Expected disposition: Back to group home, 1 to 2 days Total clinical time spent by myself addressing the patient's medical issues, reviewing all the data, and collaborating with patient's care team: 35 minutes. Charges/Coding Visit Charges Inpatient E&M: 17972 Subs Hosp L2
[2023-12-31 13:58] LABS: Ferritin 42 ng/mL (8-252); Iron 40 ug/dL (50-170); Iron Binding Capacity,Total 227 ug/dL (250-450); PERCENT IRON SATURATION 17.6 % (15.0-55.0)
--- NOTE | 2023-12-31 14:24 | NURSING ---
At 1200 this afternoon, pt attempted to urinate on BSC and was unable. This RN bladder scanned pt for 511cc. Pt at first refused to be st. cathed b/c it hurts but then changed her mind once education given on importance. This RN was able to get 400cc of urine out of bladder via st. cath.
[2023-12-31] MEDS: Potassium Chloride Oral Tablet 20 MEQ 60 MEQ PO (14:46)
[2023-12-31] MEDS: Furosemide 40 MG/4 ML Vial IV (16:01)
--- NOTE | 2023-12-31 16:12 | NURSING ---
Michael wraps to BLE applied from toes to knees at this time. Lasix given.
[2023-12-31 16:30] LABS: Bedside Glucose 106 mg/dL (74-106)
--- NOTE | 2023-12-31 18:53 | NURSING ---
Pt did not void since st. cathed at noon and no void after lasix. pt assisted to bathroom and sat on toilet. Did void but missed measuring hat.
[2023-12-31] MEDS: Glucerna Shake 120 ML LIQUID PO (21:38)
[2023-12-31] MEDS: hydrOXYzine PAM 25 MG Capsule PO (21:38)
[2023-12-31] MEDS: Ceftriaxone 1 GM/50 ML BAG IV (21:39)
[2023-12-31] MEDS: traZODone 50 MG Tablet PO (21:40)
[2023-12-31] MEDS: Doxazosin 1 MG Tablet 2.5 MG PO (21:40)
[2023-12-31] MEDS: Atorvastatin Calcium 40 MG Tablet PO (21:41)
[2023-12-31] MEDS: Divalproex Sodium 250 MG Tablet PO (21:41)
[2023-12-31] MEDS: Lidocaine 5% Patch 1 PATCH TOPICAL (21:43)
[2023-12-31 22:09] LABS: Bedside Glucose 130 mg/dL (74-106)
[2024-01-01 02:00] VITALS: BP 155/74; PULSE 68; RESP 16; TEMP 36.6; O2SAT 95
[2024-01-01 06:00] VITALS: BMI 31.6
[2024-01-01] MEDS: Benztropine Mesylate 0.5 MG TABLET 1 MG PO ×2 (06:22→14:11)
[2024-01-01 06:46] LABS: Bedside Glucose 98 mg/dL (74-106)
[2024-01-01] MEDS: Aspirin 81 MG TAB.CHEW PO (08:29)
[2024-01-01] MEDS: Folic Acid 1 MG Tablet PO (08:29)
[2024-01-01] MEDS: Lactobacillis Acidophilus 2 CAP PO (08:29)
[2024-01-01] MEDS: Fludrocortisone Acetate 0.1 MG Tablet PO (08:29)
[2024-01-01 08:33] VITALS: PULSE 76; RESP 18; O2SAT 94
[2024-01-01] MEDS: Budesonide Respules 0.5 MG/2 ML AMPUL.NEB. INHALATION (08:33)
[2024-01-01 09:00] VITALS: RESP 18
[2024-01-01 09:03] LABS: Anion Gap 4 (5-15); BUN 25 mg/dL (7-18); BUN/Creat Ratio 12.8 RATIO (10-20); Calcium,Total 7.9 mg/dL (8.5-10.1); Chloride 116 mmol/L (98-107); Creatinine, Serum 1.96 mg/dL (0.55-1.02); EST Glomerular Filtration Rate 28 mL/min (>60); Est Glom Filt Rate - Afr Amer 34 mL/min (>60); Glucose 103 mg/dL (74-106); Potassium 3.8 mmol/L (3.5-5.1); Sodium Level 140 mmol/L (136-145)
[2024-01-01] MEDS: Menthol/Lanolin/Calamine/Znox 113 GM Tube 1 APPLIC TOPICAL (09:27)
[2024-01-01] MEDS: Pantoprazole Sodium 20 MG Tablet PO (09:27)
[2024-01-01] MEDS: Tolterodine Tartrate 2 MG CAP.SA PO (09:28)
[2024-01-01] MEDS: Sertraline 50 MG Tablet PO (09:28)
[2024-01-01] MEDS: amLODIPine 5 MG Tablet PO (09:28)
[2024-01-01 09:29] VITALS: PULSE 65
[2024-01-01] MEDS: Glucerna Shake 120 ML LIQUID PO (09:29)
[2024-01-01] MEDS: Metoprolol Tartrate 50 MG Tablet PO (09:29)
[2024-01-01] MEDS: Heparin Injection (Vial) 5,000 UNIT/ML VIAL 5000 UNIT SC (09:30)
[2024-01-01] MEDS: Losartan Potassium 50 MG Tablet PO (09:33)
--- NOTE | 2024-01-01 11:54 | TREXTCAR_ITS ---
Diet Diet Order/Speech Therapy: 12/30/23 05:52 Diet: Consistent Carb - Calorie Controlled Food consistency:: Regular Liquid Consistency:: Regular/Thin How many daily calories?: 1800 calorie Routine Orders/Code Status Routine Lab Work: BMP (Please repeat in 7 days to reassess kidney function) Code Status: Full Code
--- NOTE | 2024-01-01 11:54 | PCM.DC.SUM ---
Providers Date of Admission: 12/30/23 Date of Discharge: 01/01/24 Primary Care Physician: Dr. Andrei Huff MD Reason For Visit: ? BL PNA, UTI, ZOEY Diagnosis Discharge Diagnosis (1) Cough: Status: Acute Code(s): R05.9 - Cough, unspecified Qualifiers: Cough type: acute Qualified Code(s): R05.1 - Acute cough (2) UTI (urinary tract infection): Status: Acute Code(s): N39.0 - Urinary tract infection, site not specified (3) ZOEY (acute kidney injury): Status: Acute Code(s): N17.9 - Acute kidney failure, unspecified (4) Hypokalemia: Status: Acute Code(s): E87.6 - Hypokalemia (5) Debility: Status: Acute Code(s): R53.81 - Other malaise Medications at Discharge Home Medications albuterol sulfate 2.5 mg/3 mL (0.083 %) solution for nebulization 2.5 mg (3 mL) inhalation Q4H PRN shortness of breath or wheezing #180 mL 05/03/19 fludrocortisone 0.1 mg tablet See Rx Instructions .Route .COMPLEX #30 tabs 11/09/22 benztropine 1 mg tablet 1 mg PO TID 06/18/23 ondansetron HCl 4 mg tablet 4 mg PO Q8H PRN nausea and vomiting 06/18/23 prazosin 1 mg capsule 3 mg PO QHS 06/18/23 trazodone 50 mg tablet 50 mg PO QHS 06/18/23 walker #1 ea 06/27/23 compress.stocking,knee,reg,lrg #2 ea 07/01/23 blood sugar diagnostic (FreeStyle Lite Strips) #100 ea 07/09/23 blood-glucose meter (FreeStyle Lite Meter kit) #1 ea 07/09/23 lancets 28 gauge (FreeStyle Lancets) #200 ea 07/09/23 pen needle, diabetic 31 gauge x 3/16 (Comfort EZ Pen [place]) #100 ea 07/09/23 albuterol sulfate 90 mcg/actuation aerosol inhaler (ProAir HFA) 1 - 2 puff inhalation Q6H PRN shortness of breath or wheezing #8.5 grams 07/20/23 atorvastatin 40 mg tablet 40 mg PO QHS cholesterol #90 tabs 07/20/23 folic acid 1 mg tablet 1 mg PO DAILY@0800 supplement #90 tabs 07/20/23 oxybutynin chloride 10 mg tablet,extended release 24 hr 10 mg PO DAILY #90 tabs 07/20/23 sertraline 50 mg tablet 50 mg PO DAILY depression #90 tabs 07/20/23 coenzyme Q10 100 mg capsule (Co Q-10) 100 mg PO DAILY supplement 07/29/23 aspirin 81 mg chewable tablet 81 mg PO BREAKFAST 30 days #30 tabs 07/31/23 acetaminophen 500 mg tablet 500 mg PO Q6H PRN PRN pain 12/30/23 acidophilus 25 million cell-pectin, citrus 100 mg tablet 2 tab PO DAILY 12/30/23 amlodipine 5 mg tablet 5 mg PO DAILY 12/30/23 divalproex 250 mg tablet,delayed release 250 mg PO QHS Bipolar Disorder 12/30/23 hydroxyzine pamoate 25 mg capsule 25 mg PO Q12H PRN anxiety 12/30/23 lidocaine 4 % topical patch 1 patch topical QHS 12/30/23 losartan 25 mg tablet 50 mg PO DAILY 12/30/23 metoprolol tartrate 25 mg tablet 50 mg PO BID HTN 12/30/23 omeprazole 20 mg capsule,delayed release 20 mg PO DAILY 12/30/23 cephalexin 500 mg capsule 500 mg PO TID 2 days #6 caps 01/01/24 Hospital Course Operations None Procedures - (Chest x-ray) Summary of Care Provided Minutes Spent on Discharge: 35 Hospital Course: Patient is a 58-year-old female who presented [facility] ED on 12/30/2023 from her detention with reported worsening shortness of breath and inability to catch her breath. Hospital course as noted below. Patient discharged back to detention in stable condition on 12/31. 1. Concern for pneumonia with mild hypoxia, improving ? Chest x-ray on admit with findings concerning for bilateral lower lobe pneumonia with small effusion and superimposed atelectasis. Patient reported worsening shortness of breath on admission. Did have mild hypoxia requiring supplemental nasal cannula on admit. Respiratory PCR panel negative, COVID/flu/RSV negative, urine antigens negative. Weaned off supplemental oxygen on hospital day 2. Patient with no cough or sputum production, afebrile and hemodynamically stable since admission. Have low concern for pneumonia, initially on treatment with azithromycin and ceftriaxone, azithromycin discontinued on 12/30. Continue antibiotics for acute cystitis as noted below but no further treatment needed for pneumonia. 2. Acute cystitis ? UA on admit with positive nitrites, 25 leukocyte esterase, 3+ bacteria. Urine culture preliminary positive for > 100K pansensitive E. coli. Treated with ceftriaxone while inpatient, will discharge on Keflex to complete 5-day course of antibiotics total, stop date 01/02. 3. Suspected CKD stage III ? Creatinine 1.97 on admit. Baseline unclear; has had creatinine values in the 1.2 range within the last several months but has also had several admissions with creatinine in the 1.7-2.0 range. Creatinine has remained stable around 1.8 since admission and patient with good urine output. Suspect this may be her new baseline. No further workup needed. 4. Mild hypokalemia, resolved ? Potassium 3.2 on admit. Resolved with repletion. 5. HFrEF not in acute exacerbation, hypertension, hyperlipidemia ? Echo from 07/2023 showed EF 40%, stage II diastolic dysfunction, mild concentric LV hypertrophy, moderate global LV systolic dysfunction, moderate pulmonary hypertension. Patient euvolemic on admit, BNP 884 (improved from previous values), no concern for acute exacerbation. Continue home amlodipine, Lopressor and prazosin. Home losartan was held on admit given concern for ZOEY as noted above, restarted on 12/31. Continue home statin. 6. Adult failure to thrive with chronic immobility ? PT/OT/case management followed. Resides at [facility], stable for discharge back there on 12/31. 7. Anxiety/depression/PTSD/bipolar disorder/history of SI ? Stable. Continue home benztropine, divalproex, hydroxyzine as needed, sertraline and trazodone at night. Chronic medical conditions: ? Obesity: BMI 32 on admit. Complicated hospital course, care and prognosis. ? History of orthostatic hypotension with recurrent syncope: No orthostatic hypotension during hospitalization. Continue home fludrocortisone. ? Type 2 diabetes mellitis: Treated with sliding scale insulin with meals while inpatient with good sugar control. Not on any home medications, no further needs on discharge. Total clinical time spent by myself addressing the patient's medical issues, reviewing all the data, and collaborating with patient's care team: 35 minutes. Physical Exam Const alert, oriented x3 and no apparent distress Constitutional Narrative: Middle-age female, obese, alert and answering questions appropriately, sitting up comfortably in bed, in no acute distress. General Appearance: cooperative and comfortable HEENT normocephalic, head/scalp atraumatic, hearing grossly normal bilaterally, nasal mucous membranes and turbinates normal and moist oral mucous membranes Eyes PERRL, EOMs intact bilaterally and conjunctivae normal Neck full ROM Chest inspection of chest normal Resp normal respiratory effort and no use of accessory muscles Resp Narrative: Mildly decreased breath sounds bilaterally, no wheezing or crackles noted. Breathing comfortably on room air at rest. Cardio regular rate, regular rhythm, no murmurs and peripheral pulses 2+ throughout GI normal to inspection, nondistended, normoactive bowel sounds, soft to palpation, non-tender and non-distended Back/Spine normal ROM Extremity normal to inspection and full ROM Extremity Narrative: Trace lower extremity bilaterally, stable. Skin no rashes or lesions noted Neuro moves all extremities and no focal motor deficits Speech: speech normal Psych mental status grossly normal Weight / BMI Weight Weight: 83.461 kg Body Mass Index (BMI) 31.6 ABG / Lab / Microbiology Data 12/31/23 08:40 01/01/24 08:38 Laboratory: Laboratory Results - last 24 hr 12/31/23 08:40: Iron 40 L, TIBC 227 L, Iron Saturation 17.6, Ferritin 42 12/31/23 11:52: POC Glucose 115 H 12/31/23 16:09: POC Glucose 106 12/31/23 21:34: POC Glucose 130 H 01/01/24 06:21: POC Glucose 98 01/01/24 08:38: Sodium 140, Potassium 3.8, Chloride 116 H, Carbon Dioxide 20.0 L, Anion Gap 4 L, BUN 25 H, Creatinine 1.96 H, Estim Creat Clear Calc 31.90, Est GFR (MDRD) Af Amer 34 L, Est GFR (MDRD) Non-Af 28 L, BUN/Creatinine Ratio 12.8, Glucose 103, Calcium 7.9 L Microbiology: Microbiology 12/30/23 04:20 Urine Catheter - Catheter Urine Culture - Preliminary Escherichia coli Alpha Hemolytic Streptococcus 12/30/23 07:38 Mucosa - Nasopharyngeal Respiratory Panel (PCR) - Final 12/30/23 04:20 Urine Catheter - Catheter Legionella Antigen - Final 12/30/23 04:20 Urine Catheter - Catheter Streptococcus pneumoniae Antigen (M - Final 12/30/23 03:20 Mucosa - Nose SARS-CoV-2, Influenza & RSV (PCR) - Final Meaningful Use Info Meaningful Use Meaningful Use Diagnoses (Choose all that apply): None applicable Ischemic Stroke Statin Dosing Therapy Reference: STATIN DOSE THERAPY REFERENCE: * Patients > 75 years receive moderate or high dose statin therapy. * Patients 75 years or YOUNGER should receive HIGH intensity statin dose unless contraindicated. You will be required to document reason for non-treatment if statin daily dose does not meet guidelines. HIGH DOSE STATIN THERAPY DAILY Atorvastatin > than or = to 40 mg Rosuvastatin > than or = to 20 mg Amlodipine + Atorvastatin > than or = to 2.5/40 mg Ezetimibe + Simvastatin 10/80 mg Simvastatin 80mg Discharge Plan Admission Admit Date/Time: 12/30/23 04:55 Primary Reason for Your Visit: Intermittent shortness of breath and urinary symptoms Attending Provider: Efra Rodas Primary Care Provider: Andrei Huff Consulting Providers: Kristina Israel Discharge Orders/Prescriptions Prescriptions: New cephalexin 500 mg capsule 500 mg PO TID 2 Days Qty: 6 0RF Continued albuterol sulfate 2.5 mg /3 mL (0.083 %) solution for nebulization 2.5 mg INHALATION Q4H PRN (Reason: shortness of breath or wheezing) Qty: 180 3RF prazosin 1 mg capsule 3 mg PO QHS benztropine 1 mg tablet 1 mg PO TID trazodone 50 mg tablet 50 mg PO QHS ondansetron HCl 4 mg tablet 4 mg PO Q8H PRN (Reason: nausea and vomiting) coenzyme Q10 [Co Q-10] 100 mg capsule 100 mg PO DAILY aspirin 81 mg Tablet,Chewable 81 mg PO BREAKFAST 30 Days Qty: 30 0RF amlodipine 5 mg tablet 5 mg PO DAILY lidocaine 4 % adhesive patch,medicated 1 patch topical QHS Rx Instructions: may leave on for up to 12 hrs acetaminophen 500 mg tablet 500 mg PO Q6H PRN PRN (Reason: pain) omeprazole 20 mg capsule,delayed release(DR/EC) 20 mg PO DAILY hydroxyzine pamoate 25 mg capsule 25 mg PO Q12H PRN (Reason: anxiety) metoprolol tartrate 25 mg Tablet 50 mg PO BID Rx Instructions: hold for SBP<90 or DBP<55 divalproex 250 mg tablet,delayed release (DR/EC) 250 mg PO QHS losartan 25 mg tablet 50 mg PO DAILY acidophilus-pectin, citrus 25 million cell -100 mg Tablet 2 tab PO DAILY fludrocortisone 0.1 mg tablet See Rx Instructions .ROUTE .COMPLEX Qty: 30 12RF Dose Instruction: TAKE 1 TABLET BY MOUTH DAILY at 8 am. Rx Instructions: TAKE 1 TABLET BY MOUTH DAILY at 8 am. (DME) walker Misc See Rx Instructions .Route Qty: 1 0RF Rx Instructions: To be used during ambulation (DME) compress.stocking,knee,reg,lrg Misc See Rx Instructions .MEDSUPPLY Qty: 2 1RF Rx Instructions: wear daily for venous insufficiency 20-30 mmHg (DME) lancets [FreeStyle Lancets] 28 gauge misc See Rx Instructions .MEDSUPPLY Qty: 200 3RF Rx Instructions: check blood glucose 3x daily for type 2 DM (DME) pen needle, diabetic [Comfort EZ Pen [place]] 31 gauge x 3/16 needle See Rx Instructions .ROUTE .MEDSUPPLY Qty: 100 1RF Rx Instructions: uSE TO INJECT INSULIN 4 TIMES DAILY UNDER THE SKIN DX DIABETES E11.9 (DME) blood-glucose meter [FreeStyle Lite Meter] Kit See Rx Instructions .MEDSUPPLY Qty: 1 0RF Rx Instructions: As directed, check blood glucose 3x daily for type 2 DM (DME) FreeStyle Lite Strips Strip See Rx Instructions .MEDSUPPLY Qty: 100 3RF Rx Instructions: check blood glucose 3x daily for type 2 DM albuterol sulfate [ProAir HFA] 90 mcg/actuation HFA aerosol inhaler 1 - 2 puff INHALATION Q6H PRN (Reason: shortness of breath or wheezing) Qty: 8.5 1RF atorvastatin 40 mg tablet 40 mg PO QHS Qty: 90 1RF folic acid 1 mg tablet 1 mg PO DAILY@0800 Qty: 90 1RF oxybutynin chloride 10 mg tablet extended release 24hr 10 mg PO DAILY Qty: 90 0RF sertraline 50 mg tablet 50 mg PO DAILY Qty: 90 1RF Referrals / Follow Up: Andrei Huff MD [Primary Care Provider] - Disposition Disposition (needs filled in before D/C Order can be placed): Care Home Acute Care Charges/Coding Visit Charges Inpatient E&M: 41301 Disch Hosp >30min
[2024-01-01 11:58] LABS: Bedside Glucose 121 mg/dL (74-106)
[2024-01-01 14:14] VITALS: BP 161/73; PULSE 67; RESP 18; TEMP 36.8; O2SAT 98
== END 2024-01-01 15:03 | DRG 139 ==
LOC: ED 03:46 → MS3 05:26
PROVIDERS: Admitting Provider Family Medicine; Emergency Provider Emergency Medicine; PCP Family Medicine; Visit Provider Hospitalist
DX: J18.9 Pneumonia, unspecified organism (principal); J96.11 Chronic respiratory failure with hypoxia; I13.0 Hypertensive heart and chronic kidney disease with heart failure and stage 1 through stage 4 chronic kidney disease, or unspecified chronic kidney disease; J90 Pleural effusion, not elsewhere classified; E11.22 Type 2 diabetes mellitus with diabetic chronic kidney disease; D64.9 Anemia, unspecified; N17.9 Acute kidney failure, unspecified; I50.22 Chronic systolic (congestive) heart failure; G40.909 Epilepsy, unspecified, not intractable, without status epilepticus; F31.9 Bipolar disorder, unspecified; N18.30 Chronic kidney disease, stage 3 unspecified; E11.40 Type 2 diabetes mellitus with diabetic neuropathy, unspecified; E11.51 Type 2 diabetes mellitus with diabetic peripheral angiopathy without gangrene; I70.0 Atherosclerosis of aorta; E78.5 Hyperlipidemia, unspecified; F41.8 Other specified anxiety disorders; E87.6 Hypokalemia; K43.9 Ventral hernia without obstruction or gangrene; E66.9 Obesity, unspecified; N30.00 Acute cystitis without hematuria; Z79.82 Long term (current) use of aspirin; R62.7 Adult failure to thrive; Z68.32 Body mass index [BMI] 32.0-32.9, adult
CPT/HCPCS: 36415; 71046; 80048; 80053; 81001; 82728; 82962; 83540; 83550; 83690; 83735; 83880; 84145; 84484; 85025; 85027; 87077; 87086; 87088; 87186; 87449; 87631; 87633; 93005; 94640; 97110; 97162; 97166; 97530; 97535; 97802; 99285; J7030; J7040; J7050; A4216; J1940

== ENCOUNTER → 2024-10-27 | Outpatient (CLI) | payer MEDICAID, SELFPAY ==
[2024-10-27 20:57] LABS: Mucous, Urine 0 SEEN /hpf (<or=2+)
[2024-10-27 21:27] LABS: Color, Urine Straw (Yellow); Glucose, Dipstick Normal (Normal); Ketone-Dipstick Negative (Negative); Leukocyte Esterase-Dipstick 500 /ul (Negative); Nitrite-Dipstick Negative (Negative); Occult Blood-Urine 10 /ul (Negative); Protein-Dipstick 100 mg/dl (Negative); Specific Gravity, Urine 1.015 (1.002-1.030); Urine Bilirubin Dipstick Negative (Negative); Urine Clarity Cloudy (Clear); Urine Urobilinogen Normal (Normal)
[2024-10-27 21:47] LABS: Squamous Epithelial Cells - UA 0-5 SEEN /hpf (5-10); Transitional Epithelial - Ur 0-5 SEEN /hpf (0-5); White Blood Cells >100 SEEN /hpf (0-5)
[2024-10-27 21:49] LABS: Bacteria 1+ /hpf (None Seen)
[2024-10-27 21:50] LABS: Red Blood Cells-Urine 0-5 SEEN /hpf (0-5)
[2024-10-27 21:51] LABS: Amorphous Sediment 1+
== END | disposition home or self-care (01) ==
LOC: OLS.AHA 20:55
PROVIDERS: PCP Family Medicine; Visit Provider Family Medicine
DX: R53.1 Weakness (principal)
CPT/HCPCS: 81001; 87077; 87086; 87088; 87186